=== PATIENT | female | born 1970 | race Caucasian/White ===

== ENCOUNTER 2017-12-27 14:39 | Emergency (ER) | payer OTHER, SELFPAY ==
[2017-12-27] MEDS ORDERED: ETOMIDATE 20 MG/10 ML VIAL IV ONE (14:40)
[2017-12-27] MEDS ORDERED: SUCCINYLCHOLINE 20 MG/ML (10 ML) IV ONE ×3 (14:40→14:59)
[2017-12-27] MEDS ORDERED: VECURONIUM 10 MG/VIAL IV ONE ×2 (14:40→19:53)
[2017-12-27] MEDS ORDERED: WATER FOR INJ,STERILE 10 ML IV ONE (14:40)
[2017-12-27] MEDS ORDERED: MIDAZOLAM HCL 2 MG/2 ML INJ ONE (14:46)
[2017-12-27] MEDS ORDERED: RSI MEDICATION KIT IV ONE (14:46)
[2017-12-27] MEDS ORDERED: FUROSEMIDE 40 MG/4 ML VIAL ONE (14:47)
[2017-12-27] MEDS ORDERED: METHYLPREDNISOLONE 125 MG INJ ONE (14:47)
[2017-12-27] MEDS ORDERED: CEFTRIAXONE/SWI 1gm 1 GM/10 ML SYR ONE (14:48)
[2017-12-27] MEDS ORDERED: PROPOFOL 1,000 MG/100 ML VIAL IV ONE ×2 (15:02→21:03)
[2017-12-27] MEDS ORDERED: NA CHLORIDE 0.9% 1,000 ML ONE ×3 (15:04→18:03)
[2017-12-27] MEDS ORDERED: FENTANYL CITR 100 MCG/2 ML ONE ×2 (15:16→18:29)
[2017-12-27] MEDS ORDERED: NOREPINEPHRINE 4mg/D5W 250mL 4 MG/250 ML BAG IV ONE (15:24)
[2017-12-27 15:31] LABS: Absolute Lymphocytes (CBC) 0.3 K/uL (0.7-4.9); Absolute Monocytes 0.6 K/uL (0.1-1.3); Basophils % 0.1 % (0-1.3); Eosinophils % 0.4 % (0-4.4); Hematocrit 41.2 % (36.0-45.0); Lymphocytes % 4.3 % (15.3-44.8); MCH 30.5 pg (27.0-35.0); MCV 93.2 fL (80-100); MPV 8.5 fL (7.6-11.3); Monocytes % 7.5 % (3.3-12.3); RBC Red Blood Cell Count 4.42 M/uL (3.86-4.86)
[2017-12-27] MEDS ORDERED: ACETAMINOPHEN 650MG/RECT SUPP PR ONE (15:43)
[2017-12-27] MEDS ORDERED: ACETAMINOPHEN 325 MG/SUPP PR ONE (15:43)
[2017-12-27] MEDS ORDERED: NA CHLORIDE 0.9% 3,000 ML ONE (15:48)
[2017-12-27] MEDS ORDERED: Phenylephrine HCl 10 MG/ML 1 ML VIAL ONE ×4 (15:48→20:29)
[2017-12-27] MEDS ORDERED: D5W 250 ML IV ONE ×2 (15:49→20:29)
[2017-12-27] MEDS ORDERED: VANCOMYCIN 1.5 GM in NA CHLORIDE 0.9% 500 ML IVPB ONE (16:00)
[2017-12-27 16:04] LABS: Albumin 2.1 g/dL (3.4-5.0); Bilirubin Direct 0.1 mg/dL (0-0.2); Bilirubin Total 0.4 mg/dL (0.2-1.0); Magnesium 2.2 mg/dL (1.8-2.4); Potassium 3.6 mmol/L (3.5-5.1)
[2017-12-27] MEDS ORDERED: DOPAMINE/D5W 400 MG/250 ML BAG IV ONE (16:05)
[2017-12-27] MEDS ORDERED: NOREPINEPHRINE 4 MG in D5W 250 ML IV PRN (16:28)
--- NOTE | 2017-12-27 16:42 | ER ---
Nurse's Notes [facility] Name: Jaycee Veliz Age: 47 yrs Sex: Female : 1970 Arrival Date: 12/27/2017 Time: 14:40 Bed 2 Private MD: Chnio Blanco E Diagnosis: Sepsis, Pneumonia, Acute Renal Failure, Left Pleural Effusion, Hypoxia, Presentation: 12/27 14:30 Presenting complaint: Patient states: difficulty breathing X 4 days, pt appears iw cyanotic, severe respiratory distress noted. Transition of care: patient was not received from another setting of care. Onset of symptoms was December 23, 2017. Risk Assessment: Do you want to hurt yourself or someone else? Patient reports no desire to harm self or others. Initial Sepsis Screen: Does the patient meet any 2 criteria? RR > 20 per min. Altered Mental Status. HR > 90 bpm. Does the patient have a suspected source of infection? Yes: Productive cough/pneumonia Acute abdominal pain. Care prior to arrival: None. 14:30 Method Of Arrival: Wheelchair iw 14:30 Acuity: DANA 1 aa5 Triage Assessment: 14:30 General: Appears distressed, obese, Behavior is anxious. hj 14:30 Pain: Complains of pain in chest. EENT: No signs and/or symptoms were reported hj regarding the EENT system. Neuro: Level of Consciousness is obeys commands, confused, lethargic, Oriented to person, place, situation. Cardiovascular: Capillary refill < 3 seconds. Respiratory: Reports shortness of breath labored breathing Onset: The symptoms/episode began/occurred x4 days;, the patient has severe shortness of breath. GI: No signs and/or symptoms were reported involving the gastrointestinal system. : No signs and/or symptoms were reported regarding the genitourinary system. Derm: No signs and/or symptoms reported regarding the dermatologic system. Musculoskeletal: No signs and/or symptoms reported regarding the musculoskeletal system. CODE NUMBER STAMPER: 14:30 unknwon hj Historical: - Allergies: 15:33 Hydrocodone-Acetaminophen; hj - Home Meds: 15:33 divalproex 500 mg Oral Tb24 [Active]; fluoxetine 20 mg Oral cap [Active]; levothyroxine hj 50 mcg tab [Active]; naproxen 800 mg Oral TbEC [Active]; Xanax 1 mg Oral tab [Active]; - PMHx: 15:33 Back pain; Bipolar disorder; herniated disk; Hypothyroidism; restless leg syndrome; hj - PSHx: 15:33 ; hj - Immunization history:: Adult Immunizations unknown. - Social history:: Smoking status: unknown. - Ebola Screening: : Patient negative for fever greater than or equal to 101.5 degrees Fahrenheit, and additional compatible Ebola Virus Disease symptoms Patient denies exposure to infectious person Patient denies travel to an Ebola-affected area in the 21 days before illness onset. Screenin:37 Abuse screen: Denies threats or abuse. Denies injuries from another. Nutritional iw screening: No deficits noted. Tuberculosis screening: No symptoms or risk factors identified. Fall Risk IV access (20 points). Assessment: 14:30 Respiratory: Airway is compromised Respiratory effort is labored, gasping, with nasal hj flaring, with retractions, weak, Respiratory pattern is tachypnea Breath sounds are diminished bilaterally. 14:30 Pain: Complains of pain in chest. Cardiovascular: Rhythm is sinus tachycardia. hj 14:30 Reassessment: IVF inserted on R AC by Phoenix DELGADO. hj 14:49 Reassessment: IV inserted on L AC by DANNY Garibay. hj 14:50 Reassessment: pt continues to be restless and unable to breathe O2- 65%;; MD decided to hj intubate pt;. Reassessment: etomidate 20 mg administered; intubation process started;. 14:50 Reassessment: succ 100 mg administered R AC; intubation process continued;. hj Reassessment: succ 100 mg administered; intubation performed by MD Guillermo 7.5 ET tube, at 25 at the T; BP- 128/85; 95%. Reassessment: veclo R AC administered;. 15:32 Reassessment: BP- 50/23; HR- 122- aware with orders; levophed started at 8 mcg/ min;.hj 15:55 Reassessment: too synephrine started- 180 per MD order;. hj 15:55 Reassessment: vanc 1.5 mg started per order;. hj 16:05 Reassessment: BP- 55/21; HR- 122; aware with orders; dopamine started at 10;. hj 17:31 Reassessment: BP- 103/72; HR- 116; MD aware; hospitalist and school program director in room with family member;. 18:30 Reassessment: BP-97/78; 115; wheeled to [place];. hj 19:00 Reassessment: back to room 2; for possible transfer;. hj 19:00 Reassessment: report received from Phoenix DELGADO with Pt on Octreotide 50mcg/hr, Protonix ak1 8mg/hr, Bi-carb drip 50/hr, Levophed 20mcg/min, Too-Synephrine 180mcg/min, dopamine 12mcg/min, NS 75mL/hr. 19:17 General: Appears pt follows commands but is calm and drowsy . Pain: Unable to use pain ak1 scale. Patient is intubated. Neuro: pt intubated. Cardiovascular: Rhythm is sinus tachycardia. Respiratory: Airway is patent pt intubated Breath sounds are diminished bilaterally. GI: NGT in place, to suction. Site with drainage. : Knight in place to gravity drainage no urine output. EENT: NG tube in place. 19:22 Reassessment: BP- 89/65;HR- 120;. hj 20:48 Reassessment: Dr. Li verbal order to d/c dopamine and start vasopressin. . ak1 21:01 Reassessment: life flight requested propofol for sedation, 100mL sealed bottle given to ak1 life flight. pt left with vasopressin, too-synephiren, levophed with life flight. Life flight d/c'd octreotide, protonix, bicarb and NS drips prior to leaving ER2. . Vital Signs: 14:30 Pulse Ox 100% Non-rebreather mask; aa5 14:30 Pulse 130; Resp 30 S; Pulse Ox 84% on R/A; aa5 15:35 BP 83 / 51; Pulse 123; Resp 15 A; Pulse Ox 95% on ETT vent; iw 15:42 BP 68 / 49; Pulse 123; Resp 16; Temp 101.4(R); Pulse Ox 95% on ETT vent; hj 15:45 BP 67 / 37; Pulse 122; Resp 16; Pulse Ox 94% on ETT vent; hj 15:47 BP 76 / 55; Pulse 123; Resp 18; Temp 102.4(TE); Pulse Ox 93% on ETT vent; hj 15:48 BP 50 / 23; Pulse 120; Resp 16; Temp 101.7; Pulse Ox 94% on ETT vent; hj 15:56 BP 61 / 40; Pulse 120; Resp 16; Pulse Ox 94% on ETT vent; hj 16:00 BP 55 / 21; Pulse 120; Resp 16; Pulse Ox 93% on ETT vent; hj 16:03 BP 73 / 60; Pulse 120; Resp 16; Pulse Ox 93% on ETT vent; hj 16:05 BP 91 / 29; Pulse 120; Resp 18; Temp 101.4(R); Pulse Ox 93% on ETT vent; hj 16:10 BP 91 / 29; Pulse 120; Resp 18; Temp 101.1(R); Pulse Ox 93% on R/A; hj 16:15 BP 65 / 45; Pulse 120; Resp 16; Pulse Ox 94% on ETT vent; hj 16:20 BP 87 / 69; Pulse 120; Resp 16; Pulse Ox 94% on ETT vent; hj 16:25 BP 88 / 67; Pulse 120; Resp 16; Temp 101.0(R); Pulse Ox 94% on ETT vent; hj 16:30 BP 87 / 34; Pulse 122; Resp 18; Temp 99.8(R); Pulse Ox 95% on ETT vent; hj 16:45 BP 91 / 29; Pulse 120; Resp 16; Temp 98.0(R); Pulse Ox 97% on ETT vent; hj 16:48 Weight 120 kg (R); iw 17:00 BP 92 / 67; Pulse 119; Resp 18; Pulse Ox 98% on ETT vent; hj 17:15 BP 96 / 40; Pulse 118; Resp 18; Pulse Ox 97% on ETT vent; hj 17:20 BP 103 / 74; Pulse 116; Resp 18; Pulse Ox 99% on ETT vent; hj 17:30 BP 100 / 68; Pulse 116; Resp 18; Pulse Ox 99% on ETT vent; hj 18:00 BP 99 / 78; Pulse 115; Resp 18; Pulse Ox 100% on ETT vent; hj 18:45 BP 100 / 75; Pulse 114; Resp 18; Pulse Ox 98% on ETT vent; hj 19:14 BP 100 / 45; Pulse 118; Resp 16; Temp 98(C); Pulse Ox 92% on 100% FiO2 ETT vent; ak1 19:17 BP 112 / 47; Pulse 118; Resp 16; Temp 97.9(C); Pulse Ox 91% on 100% FiO2 ETT vent; ak1 20:50 BP 129 / 72; Pulse 119; Resp 18; Temp 98.1(C); Pulse Ox 94% on 100% FiO2 ETT vent; ak1 19:14 vent settings AC 16, TV600, FiO2 100% PEEP 3 ak1 20:[address] vent settings change by Dr. Mcknight - AC 16, TV 600, FiO2 100% PEEP 5 ak1 ED Course: 14:30 Patient arrived in ED. aa5 14:30 Arm band placed on right wrist. hj 14:30 Patient has correct armband on for positive identification. Placed in gown. Bed in low hj position. Call light in reach. Side rails up X2. Adult w/ patient. 14:40 Chino Blanco MD is Private Physician. sb2 14:45 Inserted saline lock: 20 gauge in right antecubital area, using aseptic technique. IV iw inserted by DANNY Garibay. 14:49 Inserted saline lock: 22 gauge in left antecubital area, using aseptic technique. Blood iw collected. IV inserted by DANNY Garibay. 15:00 Assisted provider with intubation using 7.5 mm ETT via oral route. ET tube secured at iw 25cm at the teeth. Set up intubation tray. Intubated by Bahman Li MD Placement verified by CO2 detector w/ + color change, auscultating bilateral breath sounds, Patient tolerated well. 15:10 Nirali Padilla, DANNY is Primary Nurse. iw 15:11 Triage completed. iw 15:12 Bahman Li MD is Attending Physician. rn 15:20 Assisted provider with central line placement. Set up central line tray. Triple lumen iw line placed in right femoral. Line placed by Bahman Li MD Placement verified by CXR, blood return, Dressed with 4X4s, Tape, Tegaderm, Blood was collected. Patient tolerated well. 15:30 Initial lab(s) drawn, by ED staff, sent to lab. First set of blood cultures drawn Right jp3 Femoral artery Second set of blood cultures drawn right femoral artery. 15:46 EKG done, by fire sprinkler service technician. reviewed by Bahman Li MD. at1 15:46 Knight cath inserted, using sterile technique, 16 Fr., by molecular pathologist, balloon inflated, to hj gravity drainage, other no urine putput; NGT: inserted 14 Fr. via left nare. 15:48 XRAY Chest (1 view) In Process Unspecified. EDMS 16:33 Radiology exam delayed due to pt unstable at this time per nurse- Mari Paiz. kw1 16:33 Alejandrina Martin MD is Hospitalizing Provider. kdr 17:28 EKG done, by fire sprinkler service technician. reviewed by Bahman Li MD Repeat EKG. at1 17:52 Radiology exam delayed due to per Dr. Martin hold scan until further notice. kw1 19:00 Report given to DANNY Montague. hj 19:13 initiated transfer with [facility], spoke with Melody at the transfer center. eb 19:[address] Lee from [facility] with Dr Li for patient consultation for pt eb transfer. 19:56 connected the Ecmo doctor from [facility] with Dr. Li for patient consulation. eb 20:03 administrative approval given by Melody Hodges , Pt to go to [facility] eb report to be called to [phone]. Aileen Willams has accepted the patient in transfer. 20:09 [employer] flight called spoke to Carrie at dispatch who has called the flight crew eb their ETA is 20 minutes. 20:51 Patient transferred, IV remains in place. ak1 Administered Medications: Discontinued: Dopamine drip 5 mcg/kg/min - (DOPamine 400 mg, D5W 250 ml) IV at calculated rate continuous; Titrate to keep systolic blood pressure greater than 90mmHg 14:12 Drug: Succinylcholine 100 mg Route: IVP; Site: right antecubital; iw 16:42 Follow up: Response: No adverse reaction hj 14:40 Drug: Albuterol - atroVENT (3:1) (2.5 mg - 0.5 mg) 3 ml Route: Nebulizer; iw 15:33 Follow up: Response: No adverse reaction hj 14:50 Drug: SOLU-Medrol 125 mg Route: IVP; Site: right antecubital; iw 15:33 Follow up: Response: No adverse reaction hj 14:50 Drug: Etomidate 20 mg Route: IVP; Site: right antecubital; iw 16:43 Follow up: Response: No adverse reaction hj 14:52 Drug: Succinylcholine 100 mg Route: IVP; Site: right antecubital; iw 16:43 Follow up: Response: No adverse reaction hj 15:19 CANCELLED (Duplicate Order): AtroVENT Aerosol 0.5 mg Inhalation once iw 15:32 Drug: Levophed (4 mg/250 mL D5W 4 mcg/min Route: IV; Rate: calculated rate; Site: right hj femoral; 16:43 Follow up: IV Status: Infusion continued hj 20:55 Follow up: IV Status: Infusion continued upon transfer ak1 15:33 Drug: Rocephin 1 grams Route: IV; Rate: calculated rate; Site: right femoral; hj 16:43 Follow up: IV Status: Infusion continued hj 15:45 Drug: vancoMYCIN 1.5 grams Route: IVPB; Rate: calculated rate; Site: right antecubital; hj 16:42 Follow up: IV Status: Infusion continued hj 15:45 Drug: fentaNYL (PF) 50 mcg Route: IVP; Site: right antecubital; hj 19:30 Follow up: Response: No adverse reaction hj 15:50 Drug: NS 0.9% (30 ml/kg) 30 ml/kg Route: IV; Rate: bolus; Site: right femoral; iw 16:55 Follow up: IV Status: Completed infusion hj 15:55 Drug: Too-Synephrine 100 mcg/min Route: IV; Rate: calculated rate; Site: right femoral; hj 16:42 Follow up: IV Status: Infusion continued hj 20:54 Follow up: IV Status: Infusion continued upon transfer ak1 15:55 Drug: Tylenol Suppository 1000 mg Route: WA; hj 16:40 Follow up: Response: No adverse reaction; Temperature is decreased hj 16:05 Drug: Dopamine drip 5 mcg/kg/min - (DOPamine 400 mg, D5W 250 ml) Route: IV; Rate: hj calculated rate; Site: right femoral; 16:42 Follow up: IV Status: Infusion continued hj 16:53 Drug: ProTONIX 8 mg/hr Route: IV; Rate: 25 ml/hr; Site: left antecubital; hj 17:13 Follow up: IV Status: Infusion continued hj 20:52 Follow up: IV Status: Infusion continued upon transfer ak1 16:55 Drug: ProTONIX 40 mg Route: IVP; Site: right antecubital; hj 17:13 Follow up: Response: No adverse reaction hj 16:55 Drug: ProTONIX 40 mg Route: IVP; Site: right antecubital; hj 17:15 Follow up: Response: No adverse reaction hj 16:55 Drug: Sodium Bicarbonate 2 amp Route: IVP; Site: right femoral; hj 17:14 Follow up: Response: No adverse reaction hj 17:02 CANCELLED (Duplicate Order): SandoSTATIN 50 mcg IV at calculated rate once iw 17:03 Drug: SandoSTATIN 100 mcg Route: IV; Rate: bolus; Site: left antecubital; hj 17:27 Follow up: IV Status: Infusion continued hj 17:03 Drug: Octreotide Infusion (50 mcg/hr) - (Octreotide 500 mcg, NS 0.9% 500 ml) Route: IV; hj Rate: 50 ml/hr; Site: right femoral; 17:23 Follow up: IV Status: Infusion continued hj 20:51 Follow up: IV Status: Infusion continued upon transfer ak1 18:11 Drug: Zosyn 3.375 grams Route: IVPB; Infused Over: 60 mins; Site: right antecubital; hj 18:11 Follow up: IV Status: Infusion continued hj 18:30 Drug: Ativan 2 mg Route: IVP; Site: right antecubital; hj 19:30 Follow up: Response: No adverse reaction hj 18:30 Drug: fentaNYL (PF) 50 mcg Route: IVP; Site: right antecubital; hj 19:31 Follow up: Response: No adverse reaction hj 19:59 Drug: VecuroNIUM 10 mg {Note: right femoral central line.} Route: IVP; Site: Other; bb 20:35 Follow up: Response: No adverse reaction ak1 20:00 Drug: Albumin 25 grams Volume: 100 ml; Route: IVPB; Site: left antecubital; ak1 20:53 Follow up: IV Status: Completed infusion ak1 20:25 Drug: Vasopressin 0.02 units/min Route: IV; Rate: 0.03 calculated rate; Site: right ak1 femoral; 20:35 Follow up: IV Status: Infusion continued upon transfer ak1 Outcome: 16:41 Decision to Hospitalize by Provider. kdr 19:19 critical ak1 20:01 ER care complete, transfer ordered by MD. kdr 20:48 Transferred by helicopter to [facility], [facility], Transfer form completed. ak1 X-rays sent w/ patient. Note: report called to Seth DELGADO for bed 34 [facility] unit. 20:48 Instructed on the need for transfer. 21:48 Patient left the ED. ak1 Signatures: Dispatcher [employer] EDMS Bahman Li MD MD kdr Ballard, Brenda RN DANNY bb Nirali Padilla RN RN iw Gurinder Carreon MD MD rn Calderon, Audri RN RN aa5 Mari mcfarlane, bunk house worker EKG Tat1 Clari Elder RN RN ak1 Phoenix Rueda RN RN Emily Parra kw1 Alina Younger sb2 Elva Mcgraw Jacob jp3 Corrections: (The following items were deleted from the chart) 15:12 14:40 Patient arrived in ED. sb2 aa5 15:18 14:15 Presenting complaint: Patient states: difficulty breathing X 4 days, pt appears iw cyanotic, severe respiratory distress noted iw 15:18 14:18 Method Of Arrival: Wheelchair [facility] 15:18 14:18 Transition of care: patient was not received from another setting of care. [facility] 15:18 14:18 Onset of symptoms was December 23, 2017 [facility] 15:18 14:18 Risk Assessment: Do you want to hurt yourself or someone else? Patient reports no iw desire to harm self or others. iw 15:18 14:18 Initial Sepsis Screen: Does the patient meet any 2 criteria? RR > 20 per min. iw Altered Mental Status. HR > 90 bpm. Does the patient have a suspected source of infection? No. Patient's initial sepsis screen is negative. iw 15:18 14:18 Care prior to arrival: None. iw iw 15:20 14:25 SOLU-Medrol 125 mg IVP in right antecubital iw iw 15:39 14:30 Initial Sepsis Screen: Does the patient meet any 2 criteria? RR > 20 per min. iw Altered Mental Status. HR > 90 bpm. Does the patient have a suspected source of infection? No. Patient's initial sepsis screen is negative. iw 15:39 15:20 Assisted provider with intubation using 7.5 mm ETT via oral route. ET tube iw secured at 25cm at the teeth. Set up intubation tray. Intubated by Bahman Li MD Placement verified by CO2 detector w/ + color change, auscultating bilateral breath sounds, Patient tolerated well. iw 15:40 14:15 Patient arrived in ED. aa5 aa5 : 14:18 Acuity: DANA 1 iw aa5 :40 14:15 Pulse Ox 84% RA; aa5 aa5 :40 14:15 Pulse Ox 02 100% Non-rebreather mask; aa5 aa5 15:40 14:30 Pulse Ox 84% RA; aa5 aa5
--- NOTE | 2017-12-27 16:42 | EDPHYS ---
Physician Documentation [facility] Name: Jaycee Veliz Age: 47 yrs Sex: Female : 1970 Arrival Date: 12/27/2017 Time: 14:40 Bed 2 Private MD: Chino Blanco E ED Physician Bahman Li HPI: 12/27 18:14 This 47 yrs old Female presents to ER via Wheelchair with complaints of kdr Shortness Of Breath, Chest Pain. 18:14 The patient has shortness of breath at rest, with light activity. Onset: The kdr symptoms/episode began/occurred gradually, 4 day(s) ago. Duration: The symptoms are continuous, and are steadily getting worse. The patient's shortness of breath is aggravated by exertion, light activity. Associated signs and symptoms: Pertinent positives: productive cough, diaphoresis. Severity of symptoms: At their worst the symptoms were severe incapacitating in the emergency department the symptoms are worse. It is unknown whether or not the patient has had similar symptoms in the past. It is unknown whether or not the patient has recently seen a physician. 18:14 The patient's cousin reports that she had been feeling poorly for the last 3-4 days and kdr that when they had checked on her yesterday, she was in bed and feeling week. AFTERSCHOOL: 14:30 [place] hj Historical: - Allergies: 15:33 Hydrocodone-Acetaminophen; hj - Home Meds: 15:33 divalproex 500 mg Oral Tb24 [Active]; fluoxetine 20 mg Oral cap [Active]; levothyroxine hj 50 mcg tab [Active]; naproxen 800 mg Oral TbEC [Active]; Xanax 1 mg Oral tab [Active]; - PMHx: 15:33 Back pain; Bipolar disorder; herniated disk; Hypothyroidism; restless leg syndrome; hj - PSHx: 15:33 ; hj - Immunization history:: Adult Immunizations unknown. - Social history:: Smoking status: unknown. - Ebola Screening: : Patient negative for fever greater than or equal to 101.5 degrees Fahrenheit, and additional compatible Ebola Virus Disease symptoms Patient denies exposure to infectious person Patient denies travel to an Ebola-affected area in the 21 days before illness onset. ROS: 18:29 Constitutional: Unable to obtain as the patient was in severe respiratory distress and kdr was intubated not long after arrival 18:29 Unable to obtain ROS due to altered mental status, patient distress. Exam: 18:29 Constitutional: This is a well developed, well obese nourished patient who is awake kdr but in moderate to severe distress. Head/Face: Normocephalic, atraumatic. Eyes: Pupils equal round and reactive to light, extra-ocular motions intact. Lids and lashes normal. Conjunctiva and sclera are non-icteric and not injected. Cornea within normal limits. Periorbital areas with no swelling, redness, or edema. Chest/axilla: Normal chest wall appearance and motion. Nontender with no deformity. No lesions are appreciated. Cardiovascular: Regular rate and rhythm with a normal S1 and S2. No gallops, murmurs, or rubs. Normal PMI, no JVD. No pulse deficits. 18:29 Respiratory: severe repiratory distress is noted, Respirations: labored breathing, that is severe, prolonged exhalation, shallow respirations, that is moderate, tachypnea, that is moderate, Breath sounds: rales, that are mild, are located in both bases, rhonchi, that are moderate, are located in both bases, are heard diffusely, + upper airway congestion. Vital Signs: 14:30 Pulse Ox 100% Non-rebreather mask; aa5 14:30 Pulse 130; Resp 30 S; Pulse Ox 84% on R/A; aa5 15:35 BP 83 / 51; Pulse 123; Resp 15 A; Pulse Ox 95% on ETT vent; iw 15:42 BP 68 / 49; Pulse 123; Resp 16; Temp 101.4(R); Pulse Ox 95% on ETT vent; hj 15:45 BP 67 / 37; Pulse 122; Resp 16; Pulse Ox 94% on ETT vent; hj 15:47 BP 76 / 55; Pulse 123; Resp 18; Temp 102.4(TE); Pulse Ox 93% on ETT vent; hj 15:48 BP 50 / 23; Pulse 120; Resp 16; Temp 101.7; Pulse Ox 94% on ETT vent; hj 15:56 BP 61 / 40; Pulse 120; Resp 16; Pulse Ox 94% on ETT vent; hj 16:00 BP 55 / 21; Pulse 120; Resp 16; Pulse Ox 93% on ETT vent; hj 16:03 BP 73 / 60; Pulse 120; Resp 16; Pulse Ox 93% on ETT vent; hj 16:05 BP 91 / 29; Pulse 120; Resp 18; Temp 101.4(R); Pulse Ox 93% on ETT vent; hj 16:10 BP 91 / 29; Pulse 120; Resp 18; Temp 101.1(R); Pulse Ox 93% on R/A; hj 16:15 BP 65 / 45; Pulse 120; Resp 16; Pulse Ox 94% on ETT vent; hj 16:20 BP 87 / 69; Pulse 120; Resp 16; Pulse Ox 94% on ETT vent; hj 16:25 BP 88 / 67; Pulse 120; Resp 16; Temp 101.0(R); Pulse Ox 94% on ETT vent; hj 16:30 BP 87 / 34; Pulse 122; Resp 18; Temp 99.8(R); Pulse Ox 95% on ETT vent; hj 16:45 BP 91 / 29; Pulse 120; Resp 16; Temp 98.0(R); Pulse Ox 97% on ETT vent; hj 16:48 Weight 120 kg (R); iw 17:00 BP 92 / 67; Pulse 119; Resp 18; Pulse Ox 98% on ETT vent; hj 17:15 BP 96 / 40; Pulse 118; Resp 18; Pulse Ox 97% on ETT vent; hj 17:20 BP 103 / 74; Pulse 116; Resp 18; Pulse Ox 99% on ETT vent; hj 17:30 BP 100 / 68; Pulse 116; Resp 18; Pulse Ox 99% on ETT vent; hj 18:00 BP 99 / 78; Pulse 115; Resp 18; Pulse Ox 100% on ETT vent; hj 18:45 BP 100 / 75; Pulse 114; Resp 18; Pulse Ox 98% on ETT vent; hj 19:14 BP 100 / 45; Pulse 118; Resp 16; Temp 98(C); Pulse Ox 92% on 100% FiO2 ETT vent; ak1 19:17 BP 112 / 47; Pulse 118; Resp 16; Temp 97.9(C); Pulse Ox 91% on 100% FiO2 ETT vent; ak1 20:50 BP 129 / 72; Pulse 119; Resp 18; Temp 98.1(C); Pulse Ox 94% on 100% FiO2 ETT vent; ak1 19:14 vent settings AC 16, TV600, FiO2 100% PEEP 3 ak1 20:[address] Mcknight - AC 16, TV 600, FiO2 100% PEEP 5 ak1 Procedures: 18:29 Intubation: Ventilated with 100% NRB prior to procedure. O2 saturation prior to kdr procedure was 93 %. Intubated orally using # 3 Giana blade with 7.5 mm ETT. Successful on third attempt. Ventilated with Ambu bag. Tube secured with ETT lee Placement verified by CXR, CO2 detector with (+) color change, auscultating bilateral breath sounds, O2 saturation after procedure was 92 %. Patient tolerated well, The patient vomited during the attempt and required vigorous suctioning. Central Line: the site was prepped with Betadine, a triple lumen catheter was inserted, in the right femoral vein, in 1 attempts. placement was verified, by blood return, the site was dressed with 4X4s, Tegaderm, using sterile technique, the patient tolerated the procedure, well. MDM: 16:41 Patient medically screened. kdr 18:29 Data reviewed: vital signs, nurses notes, lab test result(s), radiologic studies. kdr Counseling: I had a detailed discussion with the patient and/or guardian regarding: the historical points, exam findings, and any diagnostic results supporting the discharge/admit diagnosis, lab results, radiology results, the need for further work-up and treatment in the hospital. Physician consultation: Alejandrina Martin MD regarding admission, and will see patient in ED, immediately. Admission orders: after a detailed discussion of the patient's condition and case, the admit orders are written by me. ED course: The patient was critically ill with mild improvement in the ED. 12/27 15:09 Order name: Basic Metabolic Panel; Complete Time: 16:12 12/27 15:09 Order name: CBC with Diff; Complete Time: 17:59 iw 12/27 15:09 Order name: Ckmb; Complete Time: 16:12 iw 12/27 15:09 Order name: CPK; Complete Time: 16:12 12/27 15:09 Order name: LFT's; Complete Time: 16:12 12/27 15:09 Order name: Magnesium; Complete Time: 16:12 12/27 15:09 Order name: Troponin (emerg Dept Use Only); Complete Time: 16:12 12/27 15:09 Order name: Blood Culture Adult (2) 12/27 15:47 Order name: Manual Differential; Complete Time: 17:59 EDTX 12/27 16:12 Order name: TSH; Complete Time: 17:59 [facility] 12/27 16:17 Order name: ABG; Complete Time: 17:59 [facility] 12/27 16:18 Order name: Procalcitonin; Complete Time: 17:59 [facility] 12/27 16:18 Order name: Lactate; Complete Time: 17:59 kdr 12/27 16:18 Order name: CRP; Complete Time: 17:59 [facility] 12/27 16:18 Order name: ESR; Complete Time: 19:29 [facility] 12/27 16:53 Order name: ABG Arterial Blood Gas; Complete Time: 17:59 [facility] 12/27 17:10 Order name: CBC with Automated Diff [facility] 12/27 17:10 Order name: CKMB Creatine Kinase MB [facility] 12/27 17:10 Order name: Comprehensive Metabolic Panel [facility] 12/27 15:09 Order name: XRAY Chest (1 view); Complete Time: 19:29 12/27 16:30 Order name: Chest Abd Pelvis Wo Con; Complete Time: 19:29 [facility] 12/27 17:10 Order name: Creatine Phosphokinase [facility] 12/27 17:10 Order name: Magnesium [facility] 12/27 17:10 Order name: Phosphorus [facility] 12/27 17:10 Order name: Chest Pa And Lat (2 Views) [facility] 12/27 17:13 Order name: ABG Arterial Blood Gas; Complete Time: 17:59 [facility] 12/27 17:13 Order name: Comprehensive Metabolic Panel [facility] 12/27 17:13 Order name: Lactic Dehydrogenase [facility] 12/27 19:21 Order name: US; Complete Time: 19:29 [facility] 12/27 15:09 Order name: EKG; Complete Time: 15:10 12/27 15:09 Order name: Cardiac monitoring; Complete Time: 15:33 12/27 15:09 Order name: EKG - Nurse/Tech; Complete Time: 15:33 12/27 15:09 Order name: IV Saline Lock; Complete Time: 15:33 12/27 15:09 Order name: Labs collected and sent; Complete Time: 15:33 iw 12/27 15:09 Order name: O2 Per Protocol; Complete Time: 15:33 iw 12/27 15:09 Order name: O2 Sat Monitoring; Complete Time: 15:34 iw 12/27 15:09 Order name: Urine Dipstick-Ancillary (obtain specimen); Complete Time: 15:34 iw 12/27 17:10 Order name: CONS Physician Consult EDTX 12/27 17:10 Order name: NPO EDTX 12/27 17:12 Order name: CONS Pharmacy Consult EDMS Administered Medications: Discontinued: Dopamine drip 5 mcg/kg/min - (DOPamine 400 mg, D5W 250 ml) IV at calculated rate continuous; Titrate to keep systolic blood pressure greater than 90mmHg 14:12 Drug: Succinylcholine 100 mg Route: IVP; Site: right antecubital; iw 16:42 Follow up: Response: No adverse reaction hj 14:40 Drug: Albuterol - atroVENT (3:1) (2.5 mg - 0.5 mg) 3 ml Route: Nebulizer; iw 15:33 Follow up: Response: No adverse reaction hj 14:50 Drug: SOLU-Medrol 125 mg Route: IVP; Site: right antecubital; iw 15:33 Follow up: Response: No adverse reaction hj 14:50 Drug: Etomidate 20 mg Route: IVP; Site: right antecubital; iw 16:43 Follow up: Response: No adverse reaction hj 14:52 Drug: Succinylcholine 100 mg Route: IVP; Site: right antecubital; iw 16:43 Follow up: Response: No adverse reaction hj 15:19 CANCELLED (Duplicate Order): AtroVENT Aerosol 0.5 mg Inhalation once iw 15:32 Drug: Levophed (4 mg/250 mL D5W 4 mcg/min Route: IV; Rate: calculated rate; Site: right hj femoral; 16:43 Follow up: IV Status: Infusion continued hj 20:55 Follow up: IV Status: Infusion continued upon transfer ak1 15:33 Drug: Rocephin 1 grams Route: IV; Rate: calculated rate; Site: right femoral; hj 16:43 Follow up: IV Status: Infusion continued hj 15:45 Drug: vancoMYCIN 1.5 grams Route: IVPB; Rate: calculated rate; Site: right antecubital; hj 16:42 Follow up: IV Status: Infusion continued hj 15:45 Drug: fentaNYL (PF) 50 mcg Route: IVP; Site: right antecubital; hj 19:30 Follow up: Response: No adverse reaction hj 15:50 Drug: NS 0.9% (30 ml/kg) 30 ml/kg Route: IV; Rate: bolus; Site: right femoral; iw 16:55 Follow up: IV Status: Completed infusion hj 15:55 Drug: Saud-Synephrine 100 mcg/min Route: IV; Rate: calculated rate; Site: right femoral; hj 16:42 Follow up: IV Status: Infusion continued hj 20:54 Follow up: IV Status: Infusion continued upon transfer ak1 15:55 Drug: Tylenol Suppository 1000 mg Route: UT; hj 16:40 Follow up: Response: No adverse reaction; Temperature is decreased hj 16:05 Drug: Dopamine drip 5 mcg/kg/min - (DOPamine 400 mg, D5W 250 ml) Route: IV; Rate: hj calculated rate; Site: right femoral; 16:42 Follow up: IV Status: Infusion continued hj 16:53 Drug: ProTONIX 8 mg/hr Route: IV; Rate: 25 ml/hr; Site: left antecubital; hj 17:13 Follow up: IV Status: Infusion continued hj 20:52 Follow up: IV Status: Infusion continued upon transfer ak1 16:55 Drug: ProTONIX 40 mg Route: IVP; Site: right antecubital; hj 17:13 Follow up: Response: No adverse reaction hj 16:55 Drug: ProTONIX 40 mg Route: IVP; Site: right antecubital; hj 17:15 Follow up: Response: No adverse reaction hj 16:55 Drug: Sodium Bicarbonate 2 amp Route: IVP; Site: right femoral; hj 17:14 Follow up: Response: No adverse reaction hj 17:02 CANCELLED (Duplicate Order): SandoSTATIN 50 mcg IV at calculated rate once iw 17:03 Drug: SandoSTATIN 100 mcg Route: IV; Rate: bolus; Site: left antecubital; hj 17:27 Follow up: IV Status: Infusion continued hj 17:03 Drug: Octreotide Infusion (50 mcg/hr) - (Octreotide 500 mcg, NS 0.9% 500 ml) Route: IV; hj Rate: 50 ml/hr; Site: right femoral; 17:23 Follow up: IV Status: Infusion continued hj 20:51 Follow up: IV Status: Infusion continued upon transfer ak1 18:11 Drug: Zosyn 3.375 grams Route: IVPB; Infused Over: 60 mins; Site: right antecubital; hj 18:11 Follow up: IV Status: Infusion continued hj 18:30 Drug: Ativan 2 mg Route: IVP; Site: right antecubital; hj 19:30 Follow up: Response: No adverse reaction hj 18:30 Drug: fentaNYL (PF) 50 mcg Route: IVP; Site: right antecubital; hj 19:31 Follow up: Response: No adverse reaction hj 19:59 Drug: VecuroNIUM 10 mg {Note: right femoral central line.} Route: IVP; Site: Other; bb 20:35 Follow up: Response: No adverse reaction ak1 20:00 Drug: Albumin 25 grams Volume: 100 ml; Route: IVPB; Site: left antecubital; ak1 20:53 Follow up: IV Status: Completed infusion ak1 20:25 Drug: Vasopressin 0.02 units/min Route: IV; Rate: 0.03 calculated rate; Site: right ak1 femoral; 20:35 Follow up: IV Status: Infusion continued upon transfer ak1 Disposition: 18:29 Critical Care:. kdr Disposition: 12/27/17 20:01 Transfer ordered to [facility]. Diagnosis is Sepsis, Pneumonia, Acute Renal Failure, Left Pleural Effusion, Hypoxia, . - Reason for transfer: Higher level of care. - Accepting physician is Dr. Solano. - Condition is Critical. - Problem is new. - Symptoms have improved. Critical care time excluding procedures: 18:29 Critical care time: Bedside Care: 90 minutes, Consultation: 30 minutes, Family kdr Intervention: 15 minutes. Total time: 135 minutes Signatures: Dispatcher [employer] EDMS Bahman Li MD MD kdr Ballard, Brenda, RN RN bb Williams, Irene, RN RN Clari Elder RN RN ak1 [place] Rueda, Leigh Mares RN, RN RN df Corrections: (The following items were deleted from the chart) 15:19 15:19 AtroVENT Aerosol 0.5 mg Inhalation once ordered. [facility] 16:18 16:18 Arterial Blood Gas+RC.LAB.BRZ ordered. EDMS EDMS 16:30 15:42 Chest Abdomen Pelvis W Con+CT.RAD.BRZ ordered. [facility] EDTX 17:02 16:56 SandoSTATIN 50 mcg IV at calculated rate once ordered. kdr iw 17:12 17:10 Thyroid Stimulating Hormone ordered. [facility] EDMS 17:12 17:10 Thyroid Stimulating Hormone ordered. [facility] EDTX 18:15 16:41 Hospitalization Ordered by Alejandrina Martin MD for Inpatient Admission. Preliminary df diagnosis is Pneumonia, unspecified organism; Sepsis, unspecified organism; Hypotension. Bed requested for Intensive Care Unit. Status is Inpatient Admission. Condition is Critical. Problem is new. Symptoms have worsened. UTI on Admission? No. kdr 19:58 18:15 12/27/2017 16:41 Hospitalization Ordered by Alejandrina Martin MD for Inpatient kdr Admission. Preliminary diagnosis is Pneumonia, unspecified organism; Sepsis, unspecified organism; Hypotension. Bed requested for Intensive Care Unit. Status is Inpatient Admission. Condition is Critical. Problem is new. Symptoms have worsened. UTI on Admission? No. df 21:48 20:01 12/27/2017 20:01 Transfer ordered to [facility]. Diagnosis is ak1 Sepsis, Pneumonia, Acute Renal Failure, Left Pleural Effusion, Hypoxia, . Reason for transfer: Higher level of care. Accepting physician is Dr. Solano. Condition is Critical. Problem is new. Symptoms have improved. kdr
[2017-12-27 16:50] LABS: Arterial Blood Carboxyhemoglob 0.5 % (0-1.5); Blood O2 Saturation 90.3 % (92-98.5)
[2017-12-27 16:53] LABS: Arterial Blood Carboxyhemoglob 0.4 % (0-1.5); Blood Gas Oxyhemoglobin 91.6 % (94-97); Blood O2 Saturation 92.8 % (92-98.5)
[2017-12-27] MEDS ORDERED: PANTOPRAZOLE 40 MG INJ ONE (16:59)
[2017-12-27] MEDS ORDERED: PANTOPRAZOLE INJ 80 MG in NA CHLORIDE 0.9% 250 ML IV SCH (17:00)
[2017-12-27] MEDS ORDERED: PIPER/TAZO/NS 3.375gm 3.375 GM/100 ML BAG ONE (17:00)
[2017-12-27] MEDS ORDERED: ALBUMIN HUMAN 25% 50 ML IV ONE (17:07)
[2017-12-27] MEDS ORDERED: OCTREOTIDE ACETATE 100 MCG/ML ONE (17:07)
[2017-12-27] MEDS ORDERED: ONDANSETRON 4 MG/2 ML VIAL IV PRN (17:09)
[2017-12-27 17:41] LABS: Dohle Bodies PRESENT; Platelet Estimate ADEQ
[2017-12-27 17:53] LABS: Arterial Blood Carboxyhemoglob 0.4 % (0-1.5); Blood Gas Oxyhemoglobin 91.6 % (94-97); Blood O2 Saturation 92.8 % (92-98.5)
[2017-12-27] MEDS ORDERED: D5W 1,000 ML with NA BICARB 8.4% 50 MEQ IV SCH ×2 (18:00)
[2017-12-27] MEDS ORDERED: OCTREOTIDE 500 MCG in NA CHLORIDE 0.9% 500 ML IV SCH (18:00)
[2017-12-27] MEDS ORDERED: NA CHLORIDE 0.9% 1,000 ML IV SCH ×2 (18:00)
[2017-12-27] MEDS ORDERED: LORazepam 2 MG/ML VIAL ONE (18:28)
--- NOTE | 2017-12-27 19:13 | RAD REPORT ---
EXAM DESCRIPTION: CT - Chest Abd Pelvis Wo Con - 12/27/2017 7:03 pm CLINICAL HISTORY: Chest and abdominal pain COMPARISON: none TECHNIQUE: Computed axial tomography of the chest, abdomen and pelvis was obtained. Oral contrast wa s given. IV contrast was not requested. All CT scans are performed using dose optimization technique as appropriate and may include automated exposure control or mA/KV adjustment according to patient size. FINDINGS: The evaluation of mediastinum, muriel, vessels and solid organs is limited secondary to the lack of IV contrast administration An endotracheal tube has its tip a couple centimeters above the wally. A nasogastric tube is present within the proximal stomach. Left lower lobe atelectasis is present. Mild bibasilar lung opacities are seen. Moderate left and sma ll left pleural effusions are present. A minimal pericardial effusion is seen. The liver, spleen, pancreas, adrenals and kidneys appear grossly normal There is no evidence of diverticulitis. . The stomach is mildly distended. A Knight catheter is present within a collapsed bladder. A right femoral line is in place IMPRESSION: Left lower lobe atelectasis Mild bibasilar lung opacities probably represent pneumonia Moderate left and small right pleural effusions Mild gastric distention
[2017-12-27] MEDS ORDERED: LEVALBUTEROL 0.63 MG/3 ML NEB ONE (19:16)
[2017-12-27] MEDS ORDERED: IPRATROPIUM BROM 0.5MG/2.5ML ONE (19:16)
--- NOTE | 2017-12-27 19:19 | RAD REPORT ---
EXAM DESCRIPTION: Dionte Single View12/27/2017 4:02 pm CLINICAL HISTORY: sob COMPARISON: 2014 FINDINGS: An endotracheal tube has its tip a couple centimeters above the wally. The left hemithorax is hazy with volume loss. Mild right basilar lung opacities are seen. The heart is normal size IMPRESSION: Left hemithorax is hazy likely representing a combination of atelectasis and pleural eff usion Mild bibasilar lung opacities probably represent pneumonia
[2017-12-27 19:21] LABS: Albumin 1.4 g/dL (3.4-5.0); Bilirubin Total 0.2 mg/dL (0.2-1.0); Potassium 3.7 mmol/L (3.5-5.1); Protein, Total 4.1 g/dL (6.4-8.2)
--- NOTE | 2017-12-27 19:21 | RAD REPORT ---
EXAM DESCRIPTION: US - Abdomen Exam Complete - 12/27/2017 6:22 pm CLINICAL HISTORY: Abdominal pain COMPARISON: 2013 cat scan FINDINGS: The liver has a mildly increased echotexture. The liver is not well evaluated. A gallstone is not seen. The gallbladder wall is not thickened. The biliary tree is normal caliber. The pancreas was not well visualized secondary overlying bowel gas The right kidney measures 13 centimeters with a normal echotexture. The left kidney measures 12 centimeters with a normal echotexture. The spleen measures 12 centimeters. The abdominal aorta appears unremarkable. The IVC was not well visualized secondary to overlying julissa l gas No ascites is visualized IMPRESSION: Mildly increased hepatic echotexture consistent with mild fatty infiltration
[2017-12-27] MEDS ORDERED: WATER FOR INJ,STERILE 10 ML ONE (19:53)
[2017-12-27] MEDS ORDERED: VASOPRESSIN 80 UNIT in NA CHLORIDE 0.9% 250 ML IV PRN (19:59)
[2017-12-27] MEDS ORDERED: LEVALBUTEROL 0.63 MG/3 ML NEB NEB SCH ×2 (20:00)
[2017-12-27] MEDS ORDERED: IPRATROPIUM BROM 0.5MG/2.5ML NEB SCH (20:00)
[2017-12-27] MEDS ORDERED: VASOPRESSIN 20 UNIT/ML VIAL ONE (20:09)
[2017-12-27] MEDS ORDERED: NA CHLORIDE 0.9% 250 ML ONE (20:14)
[2017-12-27] MEDS ORDERED: PIPER/TAZO/NS 3.375gm 3.375 GM/100 ML BAG IVPB SCH (21:00)
[2017-12-27] MEDS ORDERED: HYDROCORTISONE SUC 100 MG INJ IV SCH (21:00)
[2017-12-27] MEDS ORDERED: ALBUMIN HUMAN 25% 200 ML IV SCH (23:00)
[2017-12-27 23:16] VITALS: BP 129/72; TEMP 98.1; O2SAT 94
[2017-12-28] MEDS ORDERED: VANCOMYCIN 1.5 GM in NA CHLORIDE 0.9% 500 ML IVPB SCH (04:00)
[2017-12-28] MEDS ORDERED: RSI MEDICATION KIT IV ONE (06:24)
--- NOTE | 2017-12-28 10:42 | EKG ---
Test Date: 2017-12-27 Test Time: 17:17:43 Shower Screen Installer: OSCAR MEASUREMENT RESULTS: Intervals: Rate: 119 ND: 122 QRSD: 92 QT: 436 QTc: 613 [place]: P: 60 ND: 122 QRS: 66 T: 49 INTERPRETIVE STATEMENTS: Sinus tachycardia Possible Left atrial enlargement ST & T wave abnormality, consider lateral ischemia Abnormal ECG Compared to ECG 12/27/2017 15:33:47 ST (T wave) deviation now present Possible ischemia now present Electronically Signed On 12-28-17 10:41:10 CDT by Eze France
--- NOTE | 2017-12-28 10:42 | EKG ---
Test Date: 2017-12-27 Test Time: 15:33:47 Director Of Plant Operations: JERED/Moreno MEASUREMENT RESULTS: Intervals: Rate: 123 CT: 136 QRSD: 92 QT: 350 QTc: 501 [place]: P: 62 CT: 136 QRS: 75 T: 35 INTERPRETIVE STATEMENTS: Sinus tachycardia Possible Left atrial enlargement Borderline ECG Compared to ECG 12/29/2014 10:45:46 Sinus rhythm no longer present Prolonged QT interval no longer present Electronically Signed On 12-28-17 10:41:29 CDT by Eze France
== END 2017-12-27 21:48 | disposition short-term general hospital (02) ==
LOC: ER 14:39 → ERHOLD 16:41 → UNDOADMIN 16:41 → ER 21:48
PROC: 0BH17EZ Insertion of Endotracheal Airway into Trachea, Via Natural or Artificial Opening (ICD-10-PCS; principal; 2017-12-27)
PROC: 5A1935Z Respiratory Ventilation, Less than 24 Consecutive Hours (ICD-10-PCS; 2017-12-27)
PROC: 06HM33Z Insertion of Infusion Device into Right Femoral Vein, Percutaneous Approach (ICD-10-PCS; 2017-12-27)
DX: A41.9 Sepsis, unspecified organism (principal); J18.9 Pneumonia, unspecified organism; J91.8 Pleural effusion in other conditions classified elsewhere; R09.02 Hypoxemia; N17.9 Acute kidney failure, unspecified; E03.9 Hypothyroidism, unspecified; F31.9 Bipolar disorder, unspecified; Z88.5 Allergy status to narcotic agent
CPT/HCPCS: 31500; 36415; 71045; 71250; 74176; 76700; 80048; 80053; 80076; 82550; 82553; 82805; 83605; 83615; 83735; 84145; 84443; 84484; 85025; 85652; 86140; 87040; 87205; 93005; 94002; 94640; 99291; 99292; C9113; J0330; J0696; J1265; J2250; J2354; J2370; J2543; J2930; J3010; J7030; J7060; P9047

== ENCOUNTER 2018-01-24 17:19 | Inpatient (IN) | payer SELFPAY ==
--- OUTSIDE RECORDS SUMMARY | 2018-01-24 19:43 | XMS REPORT | Clinical Summary ---
:1970 Author Organization [facility] Address [address] [place] [address] Phone Care Team Providers Name Role Phone Unavailable Primary Care Provider Unavailable Allergies Active Allergy Reactions Severity Noted Date Comments Hydrocodone-Acetaminophen 12/27/2017 Current Medications Prescription Sig. Disp. Refills Start Date End Date Status gabapentin Take 300 mg by Active (NEURONTIN) 300 MG mouth 2 (two) capsule times daily with breakfast and dinner. ALPRAZolam (XANAX) Take 2 mg by mouth Active 2 MG 2 (two) times tabletIndications: daily. anxiety divalproex Take 1,500 mg by Active (DEPAKOTE) 500 MG mouth nightly. 24 hr tablet famotidine (PEPCID) Take 40 mg by Active 40 MG mouth every night tabletIndications: as needed for Heartburn, Heartburn. Heartburn Prevention levothyroxine Take 50 mcg by Active (SYNTHROID, mouth Every LEVOTHROID) 50 MCG morning on an tabletIndications: empty stomach. hypothyroidism amiodarone Take 1 tablet (200 0 01/24/2018 Active (PACERONE) 200 MG mg total) by mouth 9 tablet 2 (two) times daily. aspirin 81 MG Take 1 tablet (81 0 01/25/2018 Active chewable tablet mg total) by mouth 9 daily. docusate sodium Take 1 capsule 10 capsule 0 01/24/2018 Active (COLACE) 100 MG (100 mg total) by 8 capsule mouth daily as needed for Constipation for up to 10 days. magnesium hydroxide Take 30 mLs by 0 01/24/2018 Active (MILK OF MAGNESIA) mouth daily as 400 mg/5 mL Susp needed. folic acid Take 1 tablet (1 0 01/25/2018 Active (FOLVITE) 1 MG mg total) by mouth 9 tablet daily. heparin infusion Inject 150-3,500 100 mL 0 01/24/2018 Active 25,000 units in Units/hr dextrose 5% (D5W) intravenously 250 mL (100 continuous. units/mL) ipratropium-albuter Take 3 mLs by 0 01/24/2018 Active ol (DUO-NEB) 0.5 nebulization every 9 mg-3 mg(2.5 mg 6 (six) hours for base)/3 mL 360 days. nebulizer solution metoprolol Take 1 tablet (25 0 01/24/2018 Active (LOPRESSOR) 25 MG mg total) by mouth 9 tablet 2 (two) times daily. nystatin Apply topically 2 15 g 0 01/24/2018 Active (MYCOSTATIN) (two) times daily. 9 100,000 unit/gram powder piperacillin-tazoba Inject 2.25 g 0 01/24/2018 Active ctam (ZOSYN) MBP intravenously 2.25 g in 100 mL NS every 6 (six) hours. povidone-iodine Apply topically 2 480 mL 0 01/24/2018 Active (BETADINE) 10 % (two) times daily 8 external solution for 7 days. QUEtiapine Take 1 tablet (50 0 01/24/2018 Active (SEROQUEL) 50 MG mg total) by mouth 8 tablet nightly for 30 days. senna-docusate Take 1 tablet by 0 01/24/2018 Active (SENOKOT S) 8.6-50 mouth nightly. 9 mg per tablet traMADol (ULTRAM) Take 1 tablet (50 30 tablet 0 01/24/2018 Active 50 mg tablet mg total) by mouth 8 every 12 (twelve) hours as needed for up to 10 days. Max Daily Amount: 100 mg zinc Apply 71 g 0 01/24/2018 Active oxide-petrolatum topically 2 (two) (CRITIC-AID) 20-51 times daily. % Pste topical paste QUEtiapine Take by mouth Suspended (SEROQUEL) 300 MG nightly. 8 tablet Active Problems Problem Noted Date Acute renal failure with tubular necrosis ([facility]) 01/03/2018 Acute metabolic encephalopathy 01/03/2018 Streptococcus pneumoniae 01/03/2018 Empyema of left pleural space ([facility]) 01/03/2018 Metabolic acidosis 12/28/2017 Acute hypoxemic respiratory failure ([facility]) 12/28/2017 Leukocytosis 12/28/2017 SUSAN (acute kidney injury) ([facility]) 12/28/2017 ARDS (adult respiratory distress syndrome) ([facility]) 12/28/2017 Septic shock ([facility]) 12/27/2017 Acute respiratory failure with hypoxia ([facility]) Acute respiratory insufficiency Postoperative anemia due to acute blood loss Hyperglycemia Encounters Date Type Specialty Care Team Description 01/13/2018 Ancillary Orders Lab Nicanor Villalpando 01/13/2018 Procedure Pass 01/13/2018 Surgery Jaycee Anand THORACOSCOPY (VATS) MD Evangelina 01/12/2018 Anesthesia Event Edgar Jacob MD 01/04/2018 Orders Only General Internal Medicine 12/30/2017 Procedure Pass 12/30/2017 Surgery Bulmaro Mccormack MD INSERTION OF CANNULA FOR ECMO MCR - IP PROC ONLY 12/28/2017 Anesthesia Event Caden Leonard MD 12/28/2017 Procedure Pass 12/28/2017 Surgery Bulmaro Mccormack MD INSERTION OF CANNULA FOR ECMO MCR - IP PROC ONLY 12/27/2017 - Hospital Encounter Cardiology Georgie Gallagher MD Bandemia;Metabolic 01/24/2018 Saatee, Siavosh, acidosis;Acute MD respiratory failure Patric Caballero with hypoxia Kristal Luis MD ([facility]);Septic shock Gray, ([facility]);SUSAN (acute Christopher kidney injury) MD Vlad ([facility]);Multi-organ Nicanor Villalpando failure with heart Imani Garcia MD failure ([facility]);ARDS (adult respiratory distress syndrome) ([facility]);Shock circulatory ([facility]);Shock liver;Leukocytosis, unspecified type;Community acquired pneumonia, unspecified laterality;Pulmonary infiltrates;Acute encephalopathy;Group A streptococcal infection;Empyema ([facility]) 12/27/2017 Telephone Critical Care Jesus [id number] Call Medicine Janusz Yin MD after 01/23/2017 Social History Tobacco Use Types Packs/Day Years Used Date Never Assessed Sex Assigned at Date Recorded Not on file Last Filed Vital Signs Vital Sign Reading Time Taken Blood Pressure 135/102 01/24/2018 4:08 PM CDT Pulse 93 01/24/2018 4:08 PM CDT Temperature 37.2 C (98.9 F) 01/24/2018 4:08 PM CDT Respiratory Rate 20 01/24/2018 4:08 PM CDT Oxygen Saturation 96% 01/24/2018 4:08 PM CDT Inhaled Oxygen Concentration - - Weight 127.9 kg (281 lb 14.4 oz) 01/23/2018 3:56 AM CDT Height 165.1 cm (5' 5") 12/27/2017 10:34 PM CDT Body Mass Index 46.91 01/23/2018 3:56 AM CDT Plan of Treatment Date Type Specialty Care Team Description 02/02/2018 Office Visit Cardiology Jaycee Anand MD [address] [address] Procedures Procedure Name Priority Date/Time Associated Diagnosis Comments EPHRAIM 01/13/2018 9:07 AM Pleural effusion CDT THORACOTOMY,DECORTICATIO 01/13/2018 9:07 AM Pleural effusion N CDT THORACOSCOPY (VATS) 01/13/2018 9:07 AM Pleural effusion CDT INSERTION OF CANNULA FOR 12/30/2017 9:29 AM Cardiogenic shock ECMO MCR - IP PROC CDT (HCC) ONLY Case Notes CVR-34. 1579mGy L CATH & CORONARY ANGIOS 12/28/2017 10:41 AM CDT Cardiac shock syndrome ( HCC) R CATH 12/28/2017 10:41 AM CDT Cardiac shock syndrome (HCC) INSERTION OF CANNULA FOR ECMO 12/28/2017 10:41 AM CDT Cardiac shock syndrome (HCC) MCR - IP PROC ONLY after 01/23/2017 Results aPTT (01/24/2018 12:40 PM)Only the most recent of44 resultswithin the time period is included. Component Value Ref Range PTT 57.7 (H) 22.5 - 36.0 seconds Specimen Performing Laboratory Blood - Central Venous Line [address] [address] [place] lung scan (V/Q) (01/24/2018 10:50 AM) Specimen Performing Laboratory GE RIS Narrative FINAL REPORT PROCEDURE: V/Q LUNG SCAN CPT CODE: 54572 INDICATION: Chest pain PROTOCOL: 9.2 mCi ofXe-133 gas was administered by inhalation. Rebreathing/washout images were obtained in the anterior and the posterior projections.4.1 mCi of Tc-99m MAA was then injected intravenously, and static perfusion images were obtained in multiple projections. FINDINGS: Ventilation: Initial tracer distribution is irregular in the right lung and decreased in the left mid and lower lung field. Washout is mildly delayed. Perfusion: There is nonsegmental decrease in the right mid lung field and more prominent, nonsegmental decrease in the left mid and lower lung javier with prominence of the left oblique fissure. IMPRESSION: 1. Very low probability of acute pulmonary embolization. 2. Bilateral parenchymal abnormality and additional left pleural abnormality. Signed: Yeimy Barker MD Report Verified Date/Time:01/24/2018 12:29:41 Reading Location: [address] [facility] Reading Room Procedure Note Interface, External Ris In - 01/24/2018 12:31 PM CDT FINAL REPORT PROCEDURE: V/Q LUNG SCAN CPT CODE: 03211 INDICATION: Chest pain PROTOCOL: 9.2 mCi of Xe-133 gas was administered by inhalation. Rebreathing/washout images were obtained in the anterior and the posterior projections. 4.1 mCi of Tc-99m MAA was then injected intravenously, and static perfusion images were obtained in multiple projections. FINDINGS: Ventilation: Initial tracer distribution is irregular in the right lung and decreased in the left mid and lower lung field. Washout is mildly delayed. Perfusion: There is nonsegmental decrease in the right mid lung field and more prominent, nonsegmental decrease in the left mid and lower lung javier with prominence of the left oblique fissure. IMPRESSION: 1. Very low probability of acute pulmonary embolization. 2. Bilateral parenchymal abnormality and additional left pleural abnormality. Signed: Yeimy Barker MD Report Verified Date/Time: 01/24/2018 12:29:41 Reading Location: [address] [facility] Reading Room Manual Differential (01/24/2018 4:44 AM)Only the most recent of24 resultswithin the time period is included. Component Value Ref Range % Neutros 60 % % Lymphs 10 % % Monos 15 % % Eos 11 % % Myelo 3 (H) 0 - 0 % % Atypical Lymphs 1 (H) 0 - 0 % # Neutros 7.98 (H) 1.56 - 6.13 K/ul # Lymphs 1.33 1.18 - 3.74 K/ul # Monos 2.00 (H) 0.24 - 0.36 K/uL # Eos 1.46 (H) 0.04 - 0.36 K/uL # Myelo 0.40 (H) 0.00 - 0.00 K/uL # Atypical Lymphs 0.13 (H) 0.00 - 0.00 K/uL Total Counted 100 WBC Morphology Normal Platelet Morphology Normal Anisocytosis 2+ moderate Macrocytes 2+ moderate Artifact Present Platelet Conc Adequate Specimen Performing Laboratory Blood [place] [address] Narrative Received comment: User comments: Slide comments: CBC with platelet count + automated diff (01/24/2018 4:44 AM)Only the most recent of33 resultswithin the time period is included. Component Value Ref Range WBC 13.3 (H) 3.5 - 10.5 K/L RBC 2.90 (L) 3.93 - 5.22 M/L Hemoglobin 8.5 (L) 11.2 - 15.7 GM/DL Hematocrit 26.1 (L) 34.1 - 44.9 % MCV 90.0 79.4 - 94.8 fL MCH 29.3 25.6 - 32.2 pg MCHC 32.6 32.2 - 35.5 GM/DL RDW 15.7 (H) 11.7 - 14.4 % Platelets 284 150 - 450 K/CU MM MPV 9.8 9.4 - 12.3 fL nRBC 0 0 - 0 /100 WBC Specimen Performing Laboratory Blood - Central Venous Line [address] [address] CBC with platelet count + automated diff (01/24/2018 4:44 AM)Only the most recent of33 resultswithin the time period is included. Specimen Performing Laboratory Blood Narrative The following orders were created for panel order CBC with platelet count + automated diff. Procedure Abnormality Status --------- ------ CBC with platelet count ...[[id number]]AbnormalFinal result Please view results for these tests on the individual orders. Magnesium (01/24/2018 4:44 AM)Only the most recent of45 resultswithin the time period is included. Component Value Ref Range Magnesium 2.2 1.6 - 2.6 mg/dL Specimen Performing Laboratory Blood - Central Venous Line [address] [address] Basic Metabolic Panel (01/24/2018 4:44 AM)Only the most recent of35 resultswithin the time period is included. Component Value Ref Range Sodium 133 (L) 136 - 145 meq/L Potassium 4.8 3.5 - 5.1 meq/L Chloride 95 (L) 98 - 107 meq/L CO2 20 (L) 22 - 29 meq/L BUN 70 (H) 7 - 21 mg/dL Creatinine 5.56 (H) 0.57 - 1.25 mg/dL Glucose 94 70 - 105 mg/dL Calcium 9.3 8.4 - 10.2 mg/dL EGFR 8Comment: ESTIMATED GFR IS NOT ACCURATE CREATININE mL/min/1.73 sq m CLEARANCE IN PREDICTING GLOMERULAR FILTRATION RATE. ESTIMATED GFR IS NOT APPLICABLE FOR DIALYSIS PATIENTS. Specimen Performing Laboratory Blood - Central Venous Line [address] [address] XR chest 2 views (01/23/2018 9:50 PM) Specimen Performing Laboratory GE RIS Narrative FINAL REPORT INDICATION: chest pain COMPARISON: January 20, 2018 TECHNIQUE: Frontal and lateral views of the chest. IMPRESSION: Left airspace disease is not significantly improved. There are trace bilateral effusions. No pneumothorax is visible. Mediastinal contours and support hardware are stable. Signed: JR Aguilar Robert MD Report Verified Date/Time:01/23/2018 22:10:11 Reading Location: [address] Reading Room Procedure Note Interface, External Ris In - 01/23/2018 10:12 PM CDT FINAL REPORT INDICATION: chest pain COMPARISON: January 20, 2018 TECHNIQUE: Frontal and lateral views of the chest. IMPRESSION: Left airspace disease is not significantly improved. There are trace bilateral effusions. No pneumothorax is visible. Mediastinal contours and support hardware are stable. Signed: JR Aguilar Robert MD Report Verified Date/Time: 01/23/2018 22:10:11 Reading Location: [address] Reading Room (Hemogram only) (01/23/2018 9:34 PM) Component Value Ref Range WBC 12.7 (H) 3.5 - 10.5 K/L RBC 2.88 (L) 3.93 - 5.22 M/L Hemoglobin 8.6 (L) 11.2 - 15.7 GM/DL Hematocrit 26.3 (L) 34.1 - 44.9 % MCV 91.3 79.4 - 94.8 fL MCH 29.9 25.6 - 32.2 pg MCHC 32.7 32.2 - 35.5 GM/DL RDW 15.8 (H) 11.7 - 14.4 % Platelets 263 150 - 450 K/CU MM MPV 9.4 9.4 - 12.3 fL nRBC 0 0 - 0 /100 WBC Specimen Performing Laboratory Blood [address] [address] Venous doppler arms bilateral (01/23/2018 6:10 PM)Only the most recent of2 resultswithin the time period is included. Component Value Ref Range Ejection Fraction Specimen Performing Laboratory [facility] ECHO HEART[facility] MKCKESSON CPACS Impressions Right Impression 1. There is partial echogenic deep venous obstruction in the jugular vein. 2. There is no deep venous obstruction in the subclavian, axillary, brachial, radial or ulnar veins. 3. There is no superficial venous obstruction in the basilic vein. 4. There is partial echogenic superficial venous obstruction in the antecubital fossa cephalic vein. Left Impression 1. The jugular vein is not visualized due to line/bandages. 2. There is no deep venous obstruction in the subclavian, axillary, brachial, radial or ulnar veins. 3. There is no superficial venous obstruction in the basilic vein. 4. There is partial echogenic superficial venous obstruction in the antecubital fossa cephalic vein. Conclusions Summary Venous duplex imaging and compression of the bilateral upper extremities was performed. The veins were adequately visualized except as noted above. The right deep venous system was positive with chronic thrombus. The bilateral superficial venous systems were positive with chronic thrombus. Signature Velocities are measured in cm/s ; Diameters are measured in cm Narrative [facility] - Upper Extremities Veins Demographics Patient Name NAI,Date of Study 01/23/2018 JAYCEE [id number] Age 47 Visit Number [id number] Gender Female Accession Number [id number] Date of 1970 [facility] Room Number 1119 Physician SonographMarta GreenJ. Abraham Rubin MD, RVSPhysician RPVI Krista Gomes RVT Procedure Type of Study: Veins: Upper Extremities Veins, VENOUS DOPPLER ARMS, BILATERAL. Indications for Study:Prior history of DVT . Patient Status:Routine. Study Location:Vascular Lab. Technical Quality:Adequate visualization. - Results were reported to:Shikha DELGADO @ 18:26. Risk Factors History of Disease + + + + !Diagnosis !Date!Comments ! + + + + !History/Risk!!Immobilization, Recent ECMO, Obesity, Multiple! !Factors:!!Invasive Lines, Intubated, Septic Shock, Left IJ! !!!Dialysis Catheter ! + + + + !History/Risk!01/23/2018!History of right upper extremity DVT and! !Factors:!!bilateral upper extremity superficial venous! !!!thrombosis 01/04/2018! + + + + Procedure Note Interface, External Ris In - 01/24/2018 4:40 AM CDT [facility] - Upper Extremities Veins Demographics Patient Name NAI, Date of Study 01/23/2018 JAYCEE Age 47 Visit Number [id number] Gender Female Accession Number [id number] Date of 1970 Referring [facility] Room Number 1119 Physician Purchase Request Editor Liban Moran Interpreting Steph Rubin MD, RVS Physician GERRY Gomes RVT Procedure Type of Study: Veins: Upper Extremities Veins, VENOUS DOPPLER ARMS, BILATERAL. Indications for Study:Prior history of DVT . Patient Status:Routine. Study Location:Vascular Lab. Technical Quality:Adequate visualization. - Results were reported to:Shikha DELGADO @ 18:26. Risk Factors History of Disease + + + + !Diagnosis !Date !Comments ! + + + + !History/Risk ! !Immobilization, Recent ECMO, Obesity, Multiple ! !Factors: ! !Invasive Lines, Intubated, Septic Shock, Left IJ! ! ! !Dialysis Catheter ! + + + + !History/Risk !01/23/2018!History of right upper extremity DVT and ! !Factors: ! !bilateral upper extremity superficial venous ! ! ! !thrombosis 01/04/2018 ! + + + + Impressions Right Impression 1. There is partial echogenic deep venous obstruction in the jugular vein. 2. There is no deep venous obstruction in the subclavian, axillary, brachial, radial or ulnar veins. 3. There is no superficial venous obstruction in the basilic vein. 4. There is partial echogenic superficial venous obstruction in the antecubital fossa cephalic vein. Left Impression 1. The jugular vein is not visualized due to line/bandages. 2. There is no deep venous obstruction in the subclavian, axillary, brachial, radial or ulnar veins. 3. There is no superficial venous obstruction in the basilic vein. 4. There is partial echogenic superficial venous obstruction in the antecubital fossa cephalic vein. Conclusions Summary Venous duplex imaging and compression of the bilateral upper extremities was performed. The veins were adequately visualized except as noted above. The right deep venous system was positive with chronic thrombus. The bilateral superficial venous systems were positive with chronic thrombus. Signature Velocities are measured in cm/s ; Diameters are measured in cm Manual Differential (01/21/2018 4:19 AM)Only the most recent of2 resultswithin the time period is included. Component Value Ref Range % Neutros (manual) 66 % % Lymphs (manual) 16 % % Monos (manual) 6 % % Eos (manual) 7 % % Metamyelo (manual) 2 (H) 0 - 0 % % Bands (manual) 3 0 - 10 % # Neutros (manual) 7.59 1.80 - 8.00 K/L # Lymphs (manual) 1.84 1.48 - 4.50 K/L # Monos (manual) 0.69 0.00 - 1.30 K/L # Eos (manual) 0.81 (H) 0.00 - 0.50 K/L # Metamyelo (manual) 0.23 (H) 0.00 - 0.00 K/L # Bands (manual) 0.3 0.0 - 0.8 K/L Total Counted 100 Bands plus Segmented Neutrophils 7.94 WBC Morphology Normal Platelet Morphology Normal Anisocytosis 1+ few Hypochromia 1+ few Macrocytes 1+ few Poikilocytes 1+ few Specimen Performing Laboratory Blood [facility] [address] [place] [address] XR chest 1 view portable / bedside (01/20/2018 11:09 AM)Only the most recent of30 resultswithin the time period is included. Specimen Performing Laboratory GE RIS Narrative FINAL REPORT Chest one view compared to January 19 Discussion: Airspace opacities left mid to low lung unchanged. Pulmonary congestion also visible on the right unchanged. Left-sided chest tubes have been removed. No gross evidence of effusion or pneumothorax. Central lines in place at the SVC level. Signed: Jony Mcfadden MD Report Verified Date/Time:01/20/2018 11:34:18 Reading Location: [facility] Radiology Reading Room Procedure Note Interface, External Ris In - 01/20/2018 11:36 AM CDT FINAL REPORT Chest one view compared to January 19 Discussion: Airspace opacities left mid to low lung unchanged. Pulmonary congestion also visible on the right unchanged. Left-sided chest tubes have been removed. No gross evidence of effusion or pneumothorax. Central lines in place at the SVC level. Signed: Jony Mcfadden MD Report Verified Date/Time: 01/20/2018 11:34:18 Reading Location: [facility] Radiology Reading Room Hepatic function panel (01/20/2018 3:42 AM)Only the most recent of11 resultswithin the time period is included. Component Value Ref Range Protein, Total 6.5 6.0 - 8.3 gm/dL Albumin 2.5 (L) 3.5 - 5.0 g/dL Total Bilirubin 0.6 0.2 - 1.2 mg/dL Bilirubin, Direct 0.4 0.1 - 0.5 mg/dL Alkaline Phosphatase 133 40 - 150 U/L AST 110 (H) 5 - 34 U/L ALT 56 (H) 6 - 55 U/L Specimen Performing Laboratory Blood [address] [address] ECG 12 lead (01/19/2018 6:41 PM)Only the most recent of12 resultswithin the time period is included. Specimen Performing Laboratory GE MUSE Narrative Ventricular Rate 70 BPM Atrial Rate 70 BPM P-R Interval 136 ms QRS Duration 88 ms Q-T Interval 462 ms QTC Calculation(Bazett) 498 ms P [place] 71 degrees R [place] 24 degrees T [place] 43 degrees Normal sinus rhythm Nonspecific T wave abnormality Artifact noted Abnormal ECG When compared with ECG of 18-JAN-2018 21:37, No significant change was found Confirmed by Leodan Julien ([id number]) on 01/20/2018 10:05:31 AM Procedure Note Interface, External Ris In - 01/20/2018 10:05 AM CDT Ventricular Rate 70 BPM Atrial Rate 70 BPM P-R Interval 136 ms QRS Duration 88 ms Q-T Interval 462 ms QTC Calculation(Bazett) 498 ms P [place] 71 degrees R [place] 24 degrees T [place] 43 degrees Normal sinus rhythm Nonspecific T wave abnormality Artifact noted Abnormal ECG When compared with ECG of 18-JAN-2018 21:37, No significant change was found Confirmed by Leodan Julien ([id number]) on 01/20/2018 10:05:31 AM Tissue Exam (01/19/2018 9:10 AM) Component Value Ref Range Case Report Surgical Pathology Report Case: [id number] Authorizing Provider:Imani Garcia MD Collected: 01/19/2018909 Ordering Location: [address] Received: 01/19/2018909 Service Pathologist: Primo Renteria MD Specimen:Skin DIAGNOSIS A. SITE NOT SPECIFIED, SKIN PUNCH BIOPSY: - PRURIGO/CHRONIC SPONGIOTIC DERMATITIS, WITH SCAR Signing Pathologist Direct Phone Line: [phone] CPT Code(s) 32882; 91166 CLINICAL HISTORY None given SPECIMEN SOURCE Skin punch biopsy GROSS DESCRIPTION The specimen is received in a formalin-filled container labeled with the patient's information and labeled "skin punch biopsy" and consists of a nonpigmented punch biopsy measuring 0.3 cm in greatest dimension. The resection margin is inked blue. The specimen is bisected and submitted entirely in A1. CG/ew MICROSCOPIC DESCRIPTION A. Sections reveal skin with focal parakeratosis, acanthosis, focal spongiosis, focal lymphocytic exocytosis in the epidermis, and dermal fibrosis. SPECIAL STUDIES The following special studies were performed on this case and the interpretation is incorporated in the diagnostic report above: GMS - Negative Specimen Performing Laboratory Tissue - Skin [address] [address] Hemodialysis (01/17/2018 10:58 PM) Ruy Travis RN 01/17/2018 10:58 PM HD treatment completed, tolerated well.Net UF -3.0L in 210min. CVC care provided, packed with heparin as ordered.Pt in stable condition, report given to primary care RN. Lab Results Component Value Date GLUCOSE 86 01/17/2018 CALCIUM 8.3 (L) 01/17/2018 NA 129 (L) 01/17/2018 K 4.4 01/17/2018 CO2 23 01/17/2018 CL 94 (L) 01/17/2018 BUN 55 (H) 01/17/2018 CREATININE 5.75 (H) 01/17/2018 Lab Results Component Value Date WBC 13.5 (H) 01/17/2018 HGB 9.4 (L) 01/17/2018 HCT 29.1 (L) 01/17/2018 MCV 89.8 01/17/2018 PLT 238 01/17/2018 Lab Results Component Value Date HEPBSAG Nonreactive 01/12/2018 Vancomycin level, trough (01/17/2018 4:50 AM)Only the most recent of3 resultswithin the time period is included. Component Value Ref Range Vancomycin Tr 15.1 10.0 - 20.0 ug/mL Specimen Performing Laboratory Blood [address] [address] Phosphorus (01/16/2018 4:57 AM)Only the most recent of36 resultswithin the time period is included. Component Value Ref Range Phosphorus 5.8 (H) 2.3 - 4.7 mg/dL Specimen Performing Laboratory Blood - Central Venous Line [address] [address] TRANSFUSION SERVICE REPORT - SCAN (01/15/2018 6:01 PM)Only the most recent of10 resultswithin the time period is included.Oxygen saturation, measured (02/2018 3:46 AM)Only the most recent of8 resultswithin the time period is included. Component Value Ref Range O2 Saturation (Measured) 66.9 % Specimen Performing Laboratory Blood [address] [address] Calcium, Ionized (01/15/2018 3:46 AM)Only the most recent of43 resultswithin the time period is included. Component Value Ref Range Calcium, Ion 1.07 (L) 1.12 - 1.27 mmol/L pH, Blood 7.35 Specimen Performing Laboratory Blood [address] [address] Blood gas, arterial (01/15/2018 3:46 AM)Only the most recent of76 resultswithin the time period is included. Component Value Ref Range pH, Arterial 7.35 7.35 - 7.45 pCO2, Arterial 44 35 - 45 mmHg pO2, Arterial 87 80 - 90 mmHg O2 Sat, Arterial 96.3 96.0 - 97.0 % HCO3, Arterial 24 21 - 29 mmol/L Base Excess, Arterial -1.5 -2.0 - 3.0 mmol/L Patient Temperature 36.7 C FIO2 36.0 % Specimen Performing Laboratory Blood, Arterial [address] [address] Prepare RBC (01/14/2018 11:54 PM)Only the most recent of2 resultswithin the time period is included. Component Value Ref Range CROSSMATCH COMPATIBLE Unit ABO A Pos UNIT NUMBER [id number] Status TRANSFUSED Blood Bank Product RED BLOOD CELLS PRODUCT CODE [id number] CROSSMATCH COMPATIBLE Unit ABO A Pos UNIT NUMBER [id number] Status TRANSFUSED Blood Bank Product RED BLOOD CELLS PRODUCT CODE [id number] Specimen Performing Laboratory [facility] [place] Vancomycin level, random (01/14/2018 11:03 AM)Only the most recent of2 resultswithin the time period is included. Component Value Ref Range Vancomycin Rm 25.1 ug/mL Specimen Performing Laboratory Blood [address] [address] Narrative Reference Range: No Normals Lactic acid, arterial, whole blood (01/14/2018 3:40 AM)Only the most recent of23 resultswithin the time period is included. Component Value Ref Range Lactate, Art 2.9 (H) 0.5 - 2.2 mmol/L Specimen Performing Laboratory Blood, Arterial [address] [address] Narrative Effective 11/12/2015: Units/Reference Range Change New: 0.5-2.2 mmol/LPrevious: 5-20 mg/dL POC-Glucose meter (01/14/2018 1:17 AM)Only the most recent of45 resultswithin the time period is included. Component Value Ref Range POC-Glucose Meter 85Comment: TESTED AT [address] 70 - 110 mg/dL [id number] Specimen Performing Laboratory Blood [address] [address] Hemoglobin and hematocrit (01/13/2018 10:37 PM)Only the most recent of2 resultswithin the time period is included. Component Value Ref Range Hemoglobin 9.6 (L) 11.2 - 15.7 GM/DL Hematocrit 29.8 (L) 34.1 - 44.9 % Specimen Performing Laboratory Blood [address] [address] [facility] (ABG,NA,K,H&H,GLUCOSE) (01/13/2018 2:49 PM)Only the most recent of8 resultswithin the time period is included. Specimen Performing Laboratory Blood, Arterial Narrative The following orders were created for panel order [facility] (ABG,NA,K,H&H,GLUCOSE). Procedure Abnormality Status --------- ------ Blood gas, arterial[[id number]]AbnormalFinal result Sodium Na-Stat Lab[[id number]] NormalFinal result Potassium-Stat Lab[[id number]] NormalFinal result Glucose-Stat Lab[[id number]] AbnormalFinal result HGB/HCT (H&H)-Stat Lab[[id number]] Abnormal Final result Please view results for these tests on the individual orders. Potassium-Stat Lab (01/13/2018 2:49 PM)Only the most recent of12 resultswithin the time period is included. Component Value Ref Range Potassium 4.4 3.6 - 5.5 meq/L Specimen Performing Laboratory Blood, Arterial [address] [address] Sodium Na-Stat Lab (01/13/2018 2:49 PM)Only the most recent of10 resultswithin the time period is included. Component Value Ref Range Sodium 136 135 - 148 meq/L Specimen Performing Laboratory Blood, [address] [address] Glucose-Stat Lab (01/13/2018 2:49 PM)Only the most recent of17 resultswithin the time period is included. Component Value Ref Range Glucose 199 (H) 70 - 110 mg/dL Specimen Performing Laboratory Blood, [address] [address] HGB/HCT (H&H)-Stat Lab (01/13/2018 2:49 PM)Only the most recent of12 resultswithin the time period is included. Component Value Ref Range Hemoglobin 10.5 (L) 12.0 - 15.0 g/dL Hematocrit 31.0 (L) 36.0 - 45.0 % Specimen Performing Laboratory Blood, [address] [address] Hemoglobin-Stat Lab (01/13/2018 12:15 PM) Component Value Ref Range Hemoglobin 8.2 (L) 12.0 - 15.0 g/dL Specimen Performing Laboratory Blood, [address] [address] Hematocrit-Stat Lab (01/13/2018 12:15 PM) Component Value Ref Range Hematocrit 24.0 (L) 36.0 - 45.0 % Specimen Performing Laboratory Blood, [address] [address] Screen, urine (01/13/2018 8:36 AM) Component Value Ref Range Preg Test, Ur Negative Specimen Performing Laboratory Urine - Urine, Clean Catch [address] [address] Type and screen, automated (01/12/2018 9:38 PM)Only the most recent of5 resultswithin the time period is included. Component Value Ref Range ABO/RH AUTOMATED (BEAKER) A POSITIVE Ab Scrn NEGATIVE Specimen Performing Laboratory Blood [address] [address] Hepatitis B surface antigen (01/12/2018 6:58 PM) Component Value Ref Range hepatitis B Surface Ag Nonreactive Nonreactive Specimen Performing Laboratory Blood - Central Venous Line [address] [address] Lactic acid, venous, whole blood (01/12/2018 6:24 AM) Component Value Ref Range Lactate, Venous 0.5 0.5 - 2.2 mmol/L Specimen Performing Laboratory Blood [address] [address] Narrative Effective 11/12/2015: Units/Reference Range Change New: 0.5-2.2 mmol/LPrevious: 5-20 mg/dL D-dimer (01/10/2018 3:25 AM)Only the most recent of16 resultswithin the time period is included. Component Value Ref Range D-Dimer, Quant 6.95 (H) <0.50 MG/L FEU Specimen Performing Laboratory Blood - Line, Arterial [address] [address] Narrative Intended Use: The D-Dimer Assay can be used to aid in the diagnosis of Deep Vein Thrombosis (DVT) and Pulmonary Embolism Disease (PED). In patients with low pre-test probability, various studies concerning STA Liatest D-dimer test have reported that with a cutoff value of 0.50 MG/L FEU, the Negative Predictive Value (NPV) regarding the exclusion of thrombosis is within 95-100% range. Lactate dehydrogenase (LDH) (01/10/2018 3:25 AM)Only the most recent of16 resultswithin the time period is included. Component Value Ref Range LDH 348 (H) 125 - 220 U/L Specimen Performing Laboratory Blood - Line, Arterial [address] [address] Troponin I (01/08/2018 11:56 PM) Component Value Ref Range Troponin I <0.01 0.00 - 0.03 ng/mL Specimen Performing Laboratory Blood [address] [address] Narrative Troponin I (TnI) levels must be interpreted in the context of the presenting symptoms and the clinical findings. Elevated TnI levels indicate myocardial damage, but are not specific for ischemic heart disease. Elevated TnI levels are seen in patients with other cardiac conditions (including myocarditis and congestive heart failure), and slight TnI elevations occur in patients with other conditions, including sepsis, renal failure, acidosis, acute neurological disease, and persistent tachyarrhythmia. Prepare Leuko-Red RBC (01/08/2018 11:54 PM)Only the most recent of4 resultswithin the time period is included. Component Value Ref Range CROSSMATCH COMPATIBLE Unit ABO A Pos UNIT NUMBER [id number] Status TRANSFUSED Blood Bank Product RED BLOOD CELLS PRODUCT CODE [id number] Specimen Performing Laboratory Other [facility] [place] Clostridium difficile GDH Toxin (01/08/2018 4:14 AM) Component Value Ref Range C. Difficle Toxin Negative Negative C. Difficile GDH Antigen NegativeComment: No indication of Clostridium Negative difficile infection and no colonization. Discontinue enteric isolation and therapy. Specimen Performing Laboratory Stool [address] [address] Narrative Testing performed by [employer] Rapid Cassette Assay.For GDH, published sensitivity of the assay is 98.7% compared to cytotoxicity testing.For Toxin AB, published sensitivity is 87.8% and specificity 99.4% compared to cytotoxicity testing. Verification of kit performance was done by the [facility] Microbiology Lab prior to clinical use. Occult blood, stool (01/08/2018 4:14 AM) Component Value Ref Range Occult blood Positive (A) Negative Specimen Performing Laboratory Stool [address] [address] Potassium (01/07/2018 2:23 PM)Only the most recent of51 resultswithin the time period is included. Component Value Ref Range Potassium 5.1 3.5 - 5.1 meq/L Specimen Performing Laboratory Blood [address] [address] Transfuse Leuko-Red RBC (01/07/2018 12:58 PM)Only the most recent of8 resultswithin the time period is included.Sodium (01/07/2018 8:37 AM)Only the most recent of21 resultswithin the time period is included. Component Value Ref Range Sodium 134 (L) 136 - 145 meq/L Specimen Performing Laboratory Blood [address] [address] XR abdomen / KUB 1 view (01/06/2018 3:48 PM)Only the most recent of4 resultswithin the time period is included. Specimen Performing Laboratory [facility] Narrative FINAL REPORT CLINICAL HISTORY: feeding tube placement TECHNIQUE: Supine abdomen IMPRESSION: The tip of the feeding tube is in the distal stomach. The partially visualized bowel gas pattern is nonspecific. Signed: Evan Lyon MD Report Verified Date/Time:01/06/2018 20:30:47 Reading Location: [facility] C013 Consult Reading Room Procedure Note Interface, External Ris In - 01/06/2018 8:31 PM CDT FINAL REPORT CLINICAL HISTORY: feeding tube placement TECHNIQUE: Supine abdomen IMPRESSION: The tip of the feeding tube is in the distal stomach. The partially visualized bowel gas pattern is nonspecific. Signed: Evan Lyon MD Report Verified Date/Time: 01/06/2018 20:30:47 Reading Location: [facility] C013 Consult Reading Room CARDIOGRAM REPORT - SCAN (01/06/2018 1:54 PM)Only the most recent of4 resultswithin the time period is included.Transesophageal echo (01/06/2018 9: 05 AM) Component Value Ref Range Ejection Fraction Specimen Performing Laboratory [facility] ECHO HEARTLAB [facility] Narrative Transesophageal Echocardiography Report (EPHRAIM) Demographics Patient Name NAI, Date of Study01/06/2018 JAYCEE [id number] Female Visit Number [id number] Unknown [id number] Room [id number] Number Date of Birth1970Referring Niurka Luis Physician Federico Age47 year(s)SonographerOscar BRITTANY Huang Interpreting Blayne Zuniga MD Physician Fellow JULISSA Hawley Procedure Type of Study EPHRIAM procedure:TRANSESOPHAGEAL ECHO Indications:Endocarditis. Clinical History HYPOTHYROID,BI-POLAR DISORDER,S/P R/L/HEART CATH Height: 66 inches Weight: 130.64 kg (288.01 lbs) BSA: 2.34 m^2 BMI: 46.48 kg/m^2 HR: 78 bpm BP: 115/53 mmHg Procedure Informed Consent EPHRAIM procedure notes The patient was counseled and informed consent was obtained. Topical and intravenous anesthesia was administered. The esophagus was intubated without difficulty. The probe was passed and all standard echocardiographic views were obtained. Moderate sedation by performing MD using 4 mg IV versed and 100 mcg IV fentanyl. The patient tolerated the procedure well. Summary No EPHRAIM evidence of endocarditis. Previous Study Compared to prior study dated 01/05/18, there is no significant change. Signature Findings Rhythm/BPRegular sinus rhythm during the exam. Left Ventricle The left ventricle is normal in size, wall thickness, and contractility. Left AtriumLA size is normal . Right VentricleThe right ventricular chamber size and systolic function are within normal limits. Right Atrium RA size is normal. Atrial SeptumNormal interatrial septum by available views and doppler. Aortic Valve Normal AoV structure. There is no aortic regurgitation. Mitral Valve Normal MV structure. No evidence of mitral regurgitation. Tricuspid ValveTV structure is normal. A trace of tricuspid regurgitation. Pulmonic Valve Normal PV structure with trace pulmonary regurgitation. AortaAortic root size (SInus of Valsalva diameter) is normal . PericardiumNo significant pericardial effusion is visualized. IVC/SVC/PA/PV/PleuralThe right upper pulmonary vein (RUPV) is normal . The superior vena cava is well visualized with an IV line seen without evidence of vegetation. A left pleural effusion is noted. Procedure Note Interface, External Ris In - 01/06/2018 1:06 PM CDT Transesophageal Echocardiography Report (EPHRAIM) Demographics Patient Name NAI, Date of Study 01/06/2018 JAYCEE Gender Female Visit Number [id number] Race Unknown Room Number 7101 Number Date of 1970 Referring Niurka Luis Physician Federico Age 47 year(s) Purchase Request Editor Hernan Huang, BRITTANY Rushing Interpreting Blayne Zuniga MD Physician Fellow JULISSA Hawley Procedure Type of Study EPHRAIM procedure:TRANSESOPHAGEAL ECHO Indications:Endocarditis. Clinical History HYPOTHYROID,BI-POLAR DISORDER,S/P R/L/HEART CATH Height: 66 inches Weight: 130.64 kg (288.01 lbs) BSA: 2.34 m^2 BMI: 46.48 kg/m^2 HR: 78 bpm BP: 115/53 mmHg Procedure Informed Consent EPHRAIM procedure notes The patient was counseled and informed consent was obtained. Topical and intravenous anesthesia was administered. The esophagus was intubated without difficulty. The probe was passed and all standard echocardiographic views were obtained. Moderate sedation by performing MD using 4 mg IV versed and 100 mcg IV fentanyl. The patient tolerated the procedure well. Summary No EPHRAIM evidence of endocarditis. Previous Study Compared to prior study dated 01/05/18, there is no significant change. Signature Findings Rhythm/BP Regular sinus rhythm during the exam. Left Ventricle The left ventricle is normal in size, wall thickness, and contractility. Left Atrium LA size is normal . Right Ventricle The right ventricular chamber size and systolic function are within normal limits. Right Atrium RA size is normal. Atrial Septum Normal interatrial septum by available views and doppler. Aortic Valve Normal AoV structure. There is no aortic regurgitation. Mitral Valve Normal MV structure. No evidence of mitral regurgitation. Tricuspid Valve TV structure is normal. A trace of tricuspid regurgitation. Pulmonic Valve Normal PV structure with trace pulmonary regurgitation. Aorta Aortic root size (SInus of Valsalva diameter) is normal . Pericardium No significant pericardial effusion is visualized. IVC/SVC/PA/PV/Pleural The right upper pulmonary vein (RUPV) is normal . The superior vena cava is well visualized with an IV line seen without evidence of vegetation. A left pleural effusion is noted. PT/aPTT (01/06/2018 12:53 AM)Only the most recent of4 resultswithin the time period is included. Component Value Ref Range Protime 15.7 (H) 11.7 - 14.7 seconds INR 1.3 <=5.9 PTT 63.1 (H) 22.5 - 36.0 seconds Specimen Performing Laboratory [place] [address] Narrative RECOMMENDED COUMADIN/WARFARIN INR THERAPY RANGES STANDARD DOSE: 2.0 - 3.0 Includes: PROPHYLAXIS for venous thrombosis, systemic embolization; TREATMENT for venous thrombosis and/or pulmonary embolus. HIGH RISK: Target INR is 2.5-3.5 for patients with mechanical heart valves. 2D Echo W/Doppler(CW/PW/Color) (01/05/2018 12:36 PM)Only the most recent of2 resultswithin the time period is included. Component Value Ref Range Ejection Fraction Specimen Performing Laboratory [facility] ECHO HEARTLAB [facility]ON [facility] Narrative Transthoracic Echocardiography Report (TTE) Demographics Patient Name [facility], Date of Study 01/05/2018 JAYCEE [id number] Female Visit Number [id number] Room Number 7101 Number Date of Birth1970Referring Physician Clement Munroe Age47 year(s)Purchase Request Editor Rosmery Parish RDCS Kaylyn Garcia, Interpreting Mckay Atkins MD Procedure Type of Study TTE procedure:2DECHO W DOPPLER(CW/PW/COLOR) (LUPIS) Indications:Pericardial effusion and Hypotension or hemodynamic instability. Clinical History HYPOTHYROIDISM;ECMO 12/28/17-12/30/17;LCATH/RCATH 12/28/17; HGB 8 HCT 25.6 % DX: Contrast Medium: Definity. Height: 66 inches Weight: 130.64 kg (288.01 lbs) BSA: 2.34 m^2 BMI: 46.48 kg/m^2 HR: 90 bpm BP: 129/55 mmHg Summary The left ventricle is chamber size (by vol index) is normal (female - LVED vol - 29-61ml/m2). Normal LV wall thickness. All of the LV segments are hyperkinetic .Global LV systolic function hyperdynamic . LVEF by Mccormack's method of disk assessment is increased (>60%) . The LVEF was measured using Mccormack's bi-plane method of disk . Normal diastolic function. The right ventricular chamber size and systolic function are within normal limits. Unable to estimate peak systolic PA pressure; inadequate TR velocity signal. A loculated pericardial effusion is noted posteriorly ( 1.8cm) Previous Study In comparison with the prior exam 01/02/2018 the following changes are noted: ECMO support has been removed . Signature Findings Technical Quality: Technically adequate exam. Left Ventricle LV endocardium is adequately visualized with IV ultrasound enhancing agent. The left ventricle is chamber size (by vol index) is normal (female - LVED vol - 29-61ml/m2). Normal LV wall thickness. All of the LV segments are hyperkinetic . Global LV systolic function hyperdynamic . LVEF by Mccormack's method of disk assessment is increased (>60%) . The LVEF was measured using Mccormack's bi-plane method of disk . Normal diastolic function. Left AtriumLA size is normal (16-34 ml/m2) . Right VentricleThe right ventricular chamber size and systolic function are within normal limits. Right Atrium RA cavity size is normal . Aortic Valve Normal AoV structure and function by limited views and Doppler. Mitral Valve Normal MV structure and function by available views and Doppler. Tricuspid ValveTV is not well visualized. A trace of tricuspid regurgitation. Unable to estimate peak systolic PA pressure; inadequate TR velocity signal. Pulmonic Valve PV is not well visualized; function appears normal by Doppler visualized. AortaAortic root size (SInus of Valsalva diameter) is normal . PericardiumA loculated pericardial effusion is noted posteriorly ( 1.8cm) IVC/SVC/PA/PV/PleuralThe estimated RA pressure by IVC dynamics 5-10mmHg . The inferior vena cava size is normal . The inferior vena cava is adequately visualized. Chambers/Structures Left Atrium LA Volume: 47.42 ml LA Area: 16.56 cm^ 2 LA Vol. Index: 20 ml/m^2 Left Ventricle LVIDd: 3.76 cm LVIDs: 2.09 cm LV Septum Diastolic: 1.08 cm LV PW Diastolic: 1.08 cmLV FS: 44.4 % LVEDV Mccormack's:133.03 ml LVESV Mccormack's:44.34 mlLVEDVI: 57 ml/ m^2 LVEF Mccormack's: 66.7 %LVESVI: 19 ml/m^2 LVOT Diameter: 2.17 cm Aorta Ao Root S of Arleth.: 2.92 cm Doppler/Quantitative Measurements Mitral Valve MV Peak E-Wave: 1.09 m/s MV Peak A-Wave: 0.89 m/s E/A Ratio: 1.23 Peak Gradient: 4.72 mmHg Deceleration Time: 196.7 msec MV Berny. Peak: Aortic Valve Peak Velocity: 1.64 m/sMean Velocity: 1.12 m/s Peak Gradient: 10.75 mmHgMean Gradient: 5.67 mmHg AV Area (continuity): 2.71 cm^2 AV VTI: 27.01 cm AV DVI: 0.73 LVOT Peak Velocity: 1.18 m/s Peak Gradient: 5.56 mmHg Mean Velocity: 0.78 m/s Mean Gradient: 2.86 mmHg LVOT Diameter: 2.17 cmLVOT VTI: 19.78 cm LVOT Area: 3.7 cm^2 LVOT SV:73.12 ml LVOT CO: 6.58 l/min LVOT CI: 2.81 l/min/m^2 Procedure Note Interface, External Ris In - 01/05/2018 5:29 PM CDT Transthoracic Echocardiography Report (TTE) Demographics Patient Name NAI, Date of Study 01/05/2018 JAYCEE Gender Female Visit Number [id number] Race Unknown Room Number 7101 Number Date of 1970 Referring Physician Clement Munroe Age 47 year(s) Purchase Request Editor Rosmery Tarapete [facility] Coin Machine Collector Floresita Garcia, Interpreting Blayne Zuniga [facility] Physician Procedure Type of Study TTE procedure:2DECHO W DOPPLER(CW/PW/COLOR) (LUPIS) Indications:Pericardial effusion and Hypotension or hemodynamic instability. Clinical History HYPOTHYROIDISM;ECMO 12/28/17-12/30/17;LCATH/RCATH 12/28/17; HGB 8 HCT 25.6 % DX: Contrast Medium: Definity. Height: 66 inches Weight: 130.64 kg (288.01 lbs) BSA: 2.34 m^2 BMI: 46.48 kg/m^2 HR: 90 bpm BP: 129/55 mmHg Summary The left ventricle is chamber size (by vol index) is normal (female - LVED vol - 29-61ml/m2). Normal LV wall thickness. All of the LV segments are hyperkinetic .Global LV systolic function hyperdynamic . LVEF by Mccormack's method of disk assessment is increased (>60%) . The LVEF was measured using Mccormack's bi-plane method of disk . Normal diastolic function. The right ventricular chamber size and systolic function are within normal limits. Unable to estimate peak systolic PA pressure; inadequate TR velocity signal. A loculated pericardial effusion is noted posteriorly ( 1.8cm) Previous Study In comparison with the prior exam 01/02/2018 the following changes are noted: ECMO support has been removed . Signature Findings Technical Quality: Technically adequate exam. Left Ventricle LV endocardium is adequately visualized with IV ultrasound enhancing agent. The left ventricle is chamber size (by vol index) is normal (female - LVED vol - 29-61ml/m2). Normal LV wall thickness. All of the LV segments are hyperkinetic . Global LV systolic function hyperdynamic . LVEF by Mccormack's method of disk assessment is increased (>60%) . The LVEF was measured using Mccormack's bi-plane method of disk . Normal diastolic function. Left Atrium LA size is normal (16-34 ml/m2) . Right Ventricle The right ventricular chamber size and systolic function are within normal limits. Right Atrium RA cavity size is normal . Aortic Valve Normal AoV structure and function by limited views and Doppler. Mitral Valve Normal MV structure and function by available views and Doppler. Tricuspid Valve TV is not well visualized. A trace of tricuspid regurgitation. Unable to estimate peak systolic PA pressure; inadequate TR velocity signal. Pulmonic Valve PV is not well visualized; function appears normal by Doppler visualized. Aorta Aortic root size (SInus of Valsalva diameter) is normal . Pericardium A loculated pericardial effusion is noted posteriorly ( 1.8cm) IVC/SVC/PA/PV/Pleural The estimated RA pressure by IVC dynamics 5-10mmHg . The inferior vena cava size is normal . The inferior vena cava is adequately visualized. Chambers/Structures Left Atrium LA Volume: 47.42 ml LA Area: 16.56 cm^2 LA Vol. Index: 20 ml/m^2 Left Ventricle LVIDd: 3.76 cm LVIDs: 2.09 cm LV Septum Diastolic: 1.08 cm LV PW Diastolic: 1.08 cm LV FS: 44.4 % LVEDV Mccormack's:133.03 ml LVESV Mccormack's:44.34 ml LVEDVI: 57 ml/m^2 LVEF Mccormack's: 66.7 % LVESVI: 19 ml/m^2 LVOT Diameter: 2.17 cm Aorta Ao Root S of Arleth.: 2.92 cm Doppler/Quantitative Measurements Mitral Valve MV Peak E-Wave: 1.09 m/s MV Peak A-Wave: 0.89 m/s E/A Ratio: 1.23 Peak Gradient: 4.72 mmHg Deceleration Time: 196.7 msec MV Berny. Peak: Aortic Valve Peak Velocity: 1.64 m/s Mean Velocity: 1.12 m/s Peak Gradient: 10.75 mmHg Mean Gradient: 5.67 mmHg AV Area (continuity): 2.71 cm^2 AV VTI: 27.01 cm AV DVI: 0.73 LVOT Peak Velocity: 1.18 m/s Peak Gradient: 5.56 mmHg Mean Velocity: 0.78 m/s Mean Gradient: 2.86 mmHg LVOT Diameter: 2.17 cm LVOT VTI: 19.78 cm LVOT Area: 3.7 cm^2 LVOT SV:73.12 ml LVOT CO: 6.58 l/min LVOT CI: 2.81 l/min/m^2 CT chest without IV contrast (01/04/2018 10:04 PM) Specimen Performing Laboratory [employer] FINAL REPORT CT scan of the chest, abdomen and pelvis. CLINICAL HISTORY: Leukocytosis, source of infection. Patient has renal failure. COMPARISON STUDY: Chest x-ray and abdominal x-ray dated January 04, 2018 and ultrasound of the abdomen dated January 04, 2018. TECHNIQUE: Contiguous helical slices were acquired through the chest, abdomen and pelvis without the administration of oral or intravenous contrast. This exam was performed according to our department dose optimization program which includes automated exposure control, adjustment of the mA and/or kV according to the patient's size and/or use of iterative reconstruction technique. FINDINGS: The mediastinum demonstrates a left-sided jugular line and right-sided PICC line place. There is a left-sided chest tube identified. Trace pericardial fluid is seen. No suspicious mediastinum masses or adenopathy are seen. An endotracheal tube and feeding tube are noted. There is a small loculated left-sided pleural effusion and a small right-sided pleural effusion. The tracheobronchial tree is clear with no endobronchial lesions. The pulmonary parenchyma demonstrates atelectasis or consolidation in both lower lobes. Multiple groundglass opacities are seen throughout the lungs with multiple peripheral airspace opacities including a 5.1 x 2.8 cm airspace opacity in the left lower lobe, 3.4 cm airspace opacity in the lingula, 4.8 x 4.7 cm airspace opacity right middle lobe containing some cavitation, 6.6 x 2.9 cm airspace opacity in the right lower lobe inferiorly and a 4.2 x 3.1 cm opacity in the left lower lobe medially with some central cavitation. Other airspace opacities are noted. The abdomen and pelvis are limited by lack of contrast. The liver, spleen, pancreas, adrenal glands and kidneys are unremarkable. The gallbladder is sludge or stone filled. No biliary dilatation is seen. There are no dilated loops of bowel seen to suggest obstruction. Significant colonic stool is seen. No free fluid or free air is seen. There is no suspicious adenopathy. The aorta is normal in caliber. Atherosclerosis is identified. Clips are seen in the groins with areas of subcutaneous stranding and small lymph nodes. Diffuse anasarca is present. Bone windows demonstrate degenerative changes. IMPRESSION: 1. Multiple support lines and tubes as detailed above. 2. Multifocal airspace opacities throughout both lung javier including some areas of cavitation. Septic emboli cannot would be high in the differential. Pulmonary embolism would also be possible. 3. Small right-sided pleural effusion and small loculated left-sided pleural effusion with a left-sided chest tube in place. 4. Study limited by lack of contrast. 5. Diffuse anasarca. A verbal report was given to the patient's nurse, David at the time of dictation. He was instructed to inform the physician. Signed: Jaya Sandra MD Report Verified Date/Time:01/04/2018 23:07:55 Reading Location: [address] Consult Reading Room Procedure Note Interface, External Ris In - 01/04/2018 11:10 PM CDT FINAL REPORT CT scan of the chest, abdomen and pelvis. CLINICAL HISTORY: Leukocytosis, source of infection. Patient has renal failure. COMPARISON STUDY: Chest x-ray and abdominal x-ray dated January 04, 2018 and ultrasound of the abdomen dated January 04, 2018. TECHNIQUE: Contiguous helical slices were acquired through the chest, abdomen and pelvis without the administration of oral or intravenous contrast. This exam was performed according to our department dose optimization program which includes automated exposure control, adjustment of the mA and/or kV according to the patient's size and/or use of iterative reconstruction technique. FINDINGS: The mediastinum demonstrates a left-sided jugular line and right-sided PICC line place. There is a left-sided chest tube identified. Trace pericardial fluid is seen. No suspicious mediastinum masses or adenopathy are seen. An endotracheal tube and feeding tube are noted. There is a small loculated left-sided pleural effusion and a small right-sided pleural effusion. The tracheobronchial tree is clear with no endobronchial lesions. The pulmonary parenchyma demonstrates atelectasis or consolidation in both lower lobes. Multiple groundglass opacities are seen throughout the lungs with multiple peripheral airspace opacities including a 5.1 x 2.8 cm airspace opacity in the left lower lobe, 3.4 cm airspace opacity in the lingula, 4.8 x 4.7 cm airspace opacity right middle lobe containing some cavitation, 6.6 x 2.9 cm airspace opacity in the right lower lobe inferiorly and a 4.2 x 3.1 cm opacity in the left lower lobe medially with some central cavitation. Other airspace opacities are noted. The abdomen and pelvis are limited by lack of contrast. The liver, spleen, pancreas, adrenal glands and kidneys are unremarkable. The gallbladder is sludge or stone filled. No biliary dilatation is seen. There are no dilated loops of bowel seen to suggest obstruction. Significant colonic stool is seen. No free fluid or free air is seen. There is no suspicious adenopathy. The aorta is normal in caliber. Atherosclerosis is identified. Clips are seen in the groins with areas of subcutaneous stranding and small lymph nodes. Diffuse anasarca is present. Bone windows demonstrate degenerative changes. IMPRESSION: 1. Multiple support lines and tubes as detailed above. 2. Multifocal airspace opacities throughout both lung javier including some areas of cavitation. Septic emboli cannot would be high in the differential. Pulmonary embolism would also be possible. 3. Small right-sided pleural effusion and small loculated left-sided pleural effusion with a left-sided chest tube in place. 4. Study limited by lack of contrast. 5. Diffuse anasarca. A verbal report was given to the patient's nurse, David at the time of dictation. He was instructed to inform the physician. Signed: Jaya Sandra MD Report Verified Date/Time: 01/04/2018 23:07:55 Reading Location: [facility] [id number] Consult Reading Room abdomen/pelvis without iv contrast (01/04/2018 10:04 PM) Specimen Performing Laboratory [employer] FINAL REPORT CT scan of the chest, abdomen and pelvis. CLINICAL HISTORY: Leukocytosis, source of infection. Patient has renal failure. COMPARISON STUDY: Chest x-ray and abdominal x-ray dated January 04, 2018 and ultrasound of the abdomen dated January 04, 2018. TECHNIQUE: Contiguous helical slices were acquired through the chest, abdomen and pelvis without the administration of oral or intravenous contrast. This exam was performed according to our department dose optimization program which includes automated exposure control, adjustment of the mA and/or kV according to the patient's size and/or use of iterative reconstruction technique. FINDINGS: The mediastinum demonstrates a left-sided jugular line and right-sided PICC line place. There is a left-sided chest tube identified. Trace pericardial fluid is seen. No suspicious mediastinum masses or adenopathy are seen. An endotracheal tube and feeding tube are noted. There is a small loculated left-sided pleural effusion and a small right-sided pleural effusion. The tracheobronchial tree is clear with no endobronchial lesions. The pulmonary parenchyma demonstrates atelectasis or consolidation in both lower lobes. Multiple groundglass opacities are seen throughout the lungs with multiple peripheral airspace opacities including a 5.1 x 2.8 cm airspace opacity in the left lower lobe, 3.4 cm airspace opacity in the lingula, 4.8 x 4.7 cm airspace opacity right middle lobe containing some cavitation, 6.6 x 2.9 cm airspace opacity in the right lower lobe inferiorly and a 4.2 x 3.1 cm opacity in the left lower lobe medially with some central cavitation. Other airspace opacities are noted. The abdomen and pelvis are limited by lack of contrast. The liver, spleen, pancreas, adrenal glands and kidneys are unremarkable. The gallbladder is sludge or stone filled. No biliary dilatation is seen. There are no dilated loops of bowel seen to suggest obstruction. Significant colonic stool is seen. No free fluid or free air is seen. There is no suspicious adenopathy. The aorta is normal in caliber. Atherosclerosis is identified. Clips are seen in the groins with areas of subcutaneous stranding and small lymph nodes. Diffuse anasarca is present. Bone windows demonstrate degenerative changes. IMPRESSION: 1. Multiple support lines and tubes as detailed above. 2. Multifocal airspace opacities throughout both lung javier including some areas of cavitation. Septic emboli cannot would be high in the differential. Pulmonary embolism would also be possible. 3. Small right-sided pleural effusion and small loculated left-sided pleural effusion with a left-sided chest tube in place. 4. Study limited by lack of contrast. 5. Diffuse anasarca. A verbal report was given to the patient's nurse, David at the time of dictation. He was instructed to inform the physician. Signed: Jaya Sandra MD Report Verified Date/Time:01/04/2018 23:07:55 Reading Location: [facility] C013 Consult Reading Room Procedure Note Interface, External Ris In - 01/04/2018 11:10 PM CDT FINAL REPORT CT scan of the chest, abdomen and pelvis. CLINICAL HISTORY: Leukocytosis, source of infection. Patient has renal failure. COMPARISON STUDY: Chest x-ray and abdominal x-ray dated January 04, 2018 and ultrasound of the abdomen dated January 04, 2018. TECHNIQUE: Contiguous helical slices were acquired through the chest, abdomen and pelvis without the administration of oral or intravenous contrast. This exam was performed according to our department dose optimization program which includes automated exposure control, adjustment of the mA and/or kV according to the patient's size and/or use of iterative reconstruction technique. FINDINGS: The mediastinum demonstrates a left-sided jugular line and right-sided PICC line place. There is a left-sided chest tube identified. Trace pericardial fluid is seen. No suspicious mediastinum masses or adenopathy are seen. An endotracheal tube and feeding tube are noted. There is a small loculated left-sided pleural effusion and a small right-sided pleural effusion. The tracheobronchial tree is clear with no endobronchial lesions. The pulmonary parenchyma demonstrates atelectasis or consolidation in both lower lobes. Multiple groundglass opacities are seen throughout the lungs with multiple peripheral airspace opacities including a 5.1 x 2.8 cm airspace opacity in the left lower lobe, 3.4 cm airspace opacity in the lingula, 4.8 x 4.7 cm airspace opacity right middle lobe containing some cavitation, 6.6 x 2.9 cm airspace opacity in the right lower lobe inferiorly and a 4.2 x 3.1 cm opacity in the left lower lobe medially with some central cavitation. Other airspace opacities are noted. The abdomen and pelvis are limited by lack of contrast. The liver, spleen, pancreas, adrenal glands and kidneys are unremarkable. The gallbladder is sludge or stone filled. No biliary dilatation is seen. There are no dilated loops of bowel seen to suggest obstruction. Significant colonic stool is seen. No free fluid or free air is seen. There is no suspicious adenopathy. The aorta is normal in caliber. Atherosclerosis is identified. Clips are seen in the groins with areas of subcutaneous stranding and small lymph nodes. Diffuse anasarca is present. Bone windows demonstrate degenerative changes. IMPRESSION: 1. Multiple support lines and tubes as detailed above. 2. Multifocal airspace opacities throughout both lung javier including some areas of cavitation. Septic emboli cannot would be high in the differential. Pulmonary embolism would also be possible. 3. Small right-sided pleural effusion and small loculated left-sided pleural effusion with a left-sided chest tube in place. 4. Study limited by lack of contrast. 5. Diffuse anasarca. A verbal report was given to the patient's nurse, David at the time of dictation. He was instructed to inform the physician. Signed: Jaya Sandra MD Report Verified Date/Time: 01/04/2018 23:07:55 Reading Location: [facility] [id number] Consult Reading Room pH, arterial (01/04/2018 8:18 PM)Only the most recent of9 resultswithin the time period is included. Component Value Ref Range pH, Arterial 7.35 7.35 - 7.45 Specimen Performing Laboratory Blood, Arterial [facility] [address] [address] [place] hepatobiliary (HIDA) scan (01/04/2018 3:52 PM) Specimen Performing Laboratory [employer] Narrative FINAL REPORT PROCEDURE: HEPATOBILIARY SCAN CPT CODE: [id number] INDICATION:Fever, abnormal gallbladder ultrasound PROTOCOL: 5.2 mCi of Tc-99m mebrofenin was injected intravenously. Images of the upper abdomen were obtained for approximately 70 minutes after tracer injection. FINDINGS:Initial tracer uptake into the liver is uniform. Subsequent tracer clearance from the liver is moderately delayed. There is good visualization of the extrahepatic biliary duct and the gallbladder, and the tracer appears appropriately in the small bowel. IMPRESSION: 1. Diffuse hepatocellular dysfunction. 2. There is normal gallbladder filling and no evidence of acute cholecystitis. Signed: Yeimy Barker MD Report Verified Date/Time:01/04/2018 16:08:17 Reading Location: [address] Reading Room Procedure Note Interface, External Ris In - 01/04/2018 4:10 PM CDT FINAL REPORT PROCEDURE: HEPATOBILIARY SCAN CPT CODE: [id number] INDICATION: Fever, abnormal gallbladder ultrasound PROTOCOL: 5.2 mCi of Tc-99m mebrofenin was injected intravenously. Images of the upper abdomen were obtained for approximately 70 minutes after tracer injection. FINDINGS: Initial tracer uptake into the liver is uniform. Subsequent tracer clearance from the liver is moderately delayed. There is good visualization of the extrahepatic biliary duct and the gallbladder, and the tracer appears appropriately in the small bowel. IMPRESSION: 1. Diffuse hepatocellular dysfunction. 2. There is normal gallbladder filling and no evidence of acute cholecystitis. Signed: Yeimy Barker MD Report Verified Date/Time: 01/04/2018 16:08:17 Reading Location: [address] [employer] [facility] Reading Room Sputum Culture + Gram Stain (01/04/2018 6:54 AM)Only the most recent of3 resultswithin the time period is included. Component Value Ref Range Result 3+ Acinetobacter baumannii complex (A) Gram Stain Result 4+ WBCs Gram Stain Result 5-10 epithelial cells Gram Stain Result <1+ gram negative rods Gram Stain Result <1+ gram positive rods Gram Stain Result <1+ gram positive cocci in pairs Gram Stain Result <1+ yeast Specimen Performing Laboratory Sputum - Suctioned [address] [address] Narrative 2+ Normal respiratory сергей present Organism Antibiotic Method Susceptibility Acinetobacter baumannii Amikacin <=8: Susceptible complex Acinetobacter baumannii Ampicillin + Sulbactam 16: Resistant complex Acinetobacter baumannii Cefepime <=4: Susceptible complex Acinetobacter baumannii Ceftazidime 2: Susceptible complex Acinetobacter baumannii Ciprofloxacin <=0.5: Susceptible complex Acinetobacter baumannii Gentamicin <=2: Susceptible complex Acinetobacter baumannii Imipenem <=0.5: Susceptible complex Acinetobacter baumannii Levofloxacin <=1: Susceptible complex Acinetobacter baumannii Meropenem <=0.5: Susceptible complex Acinetobacter baumannii Minocycline <=1: Susceptible complex Acinetobacter baumannii Piperacillin <=16: Susceptible complex Acinetobacter baumannii Piperacillin + Tazobactam <=8: Susceptible complex Acinetobacter baumannii Tetracycline <=4: Susceptible complex Acinetobacter baumannii Tobramycin <=2: Susceptible complex Acinetobacter baumannii Trimethoprim + Sulfamethoxazole <=40: Susceptible complex Venous doppler legs bilateral (01/04/2018 4:06 AM) Component Value Ref Range Ejection Fraction Specimen Performing Laboratory [facility] ECHO HEARTLAB MKCKESSON CPACS Impressions Right Impression 1. Limited Exam: The common femoral and proximal great saphenous veins are not visualized due to incision/carlene. 2. There is no deep venous obstruction in the profunda femoral, femoral, popliteal, posterior tibial or peroneal veins where visualized. 3. There is no superficial venous obstruction in the great saphenous vein where visualized. Left Impression 1. Limited Exam: The common femoral and proximal great saphenous veins are not visualized due to incision/carlene. 2. There is no deep venous obstruction in the profunda femoral, femoral, popliteal, posterior tibial or peroneal veins where visualized. 3. There is no superficial venous obstruction in the great saphenous vein where visualized. Conclusions Summary Venous duplex imaging and compression of the bilateral lower extremities were performed. The exam was limited and the veins were technically difficult to visualize due to incisions/carlene, limited patient positioning and patient body habitus. The bilateral venous systems were patent and compressible with no evidence of thrombus where visualized. The venous Doppler waveforms were phasic with respiration . Signature Velocities are measured in cm/s ; Diameters are measured in cm Narrative [facility] - Lower Extremities DVT Study Demographics Patient Name NAI,Date of Study 01/04/2018 JAYCEE [id number] Age 47 Visit Number [id number] Gender Female Accession Number [id number] Date of 1970 Ezio Marinelli Room Number 7101 PhysicianBrabianca SonographerYogesh Hargrove InterpretingJ. Abraham Rubin MD, Physician GERRY Procedure Type of Study: Veins: Lower Extremities DVT Study, VENOUS DOPPLER LEG, BILATERAL. Indications for Study:DVT and Swelling. Patient Status:LUPIS. Study Location:Portable. Technical Quality:Technically Difficult. Risk Factors History of Disease + +----+ + !Diagnosis!Date!Comments ! + +----+ + !History/Risk !!Immobilization, Recent ECMO, Obesity, Multiple ! !Factors: !!Invasive Lines, Intubated, Septic Shock, Left IJ ! ! !!Dialysis Catheter ! + +----+ + Procedure Note Interface, External Ris In - 01/04/2018 10:01 AM CDT [facility] - Lower Extremities DVT Study Demographics Patient Name NAI, Date of Study 01/04/2018 JAYCEE Age 47 Visit Number [id number] Gender Female Accession Number [id number] Date of 1970 Referring Clement Marinelli Room Number 7101 Physician Shaenka Purchase Request Editor Yogesh Hargrove Interpreting Steph Rubin MD, Physician GERRY Procedure Type of Study: Veins: Lower Extremities DVT Study, VENOUS DOPPLER LEG, BILATERAL. Indications for Study:DVT and Swelling. Patient Status:LUPIS. Study Location:Portable. Technical Quality:Technically Difficult. Risk Factors History of Disease + +----+ + !Diagnosis !Date!Comments ! + +----+ + !History/Risk ! !Immobilization, Recent ECMO, Obesity, Multiple ! !Factors: ! !Invasive Lines, Intubated, Septic Shock, Left IJ ! ! ! !Dialysis Catheter ! + +----+ + Impressions Right Impression 1. Limited Exam: The common femoral and proximal great saphenous veins are not visualized due to incision/carlene. 2. There is no deep venous obstruction in the profunda femoral, femoral, popliteal, posterior tibial or peroneal veins where visualized. 3. There is no superficial venous obstruction in the great saphenous vein where visualized. Left Impression 1. Limited Exam: The common femoral and proximal great saphenous veins are not visualized due to incision/carlene. 2. There is no deep venous obstruction in the profunda femoral, femoral, popliteal, posterior tibial or peroneal veins where visualized. 3. There is no superficial venous obstruction in the great saphenous vein where visualized. Conclusions Summary Venous duplex imaging and compression of the bilateral lower extremities were performed. The exam was limited and the veins were technically difficult to visualize due to incisions/carlene, limited patient positioning and patient body habitus. The bilateral venous systems were patent and compressible with no evidence of thrombus where visualized. The venous Doppler waveforms were phasic with respiration . Signature Velocities are measured in cm/s ; Diameters are measured in cm Vitamin B12 and Folate (01/04/2018 3:42 AM) Component Value Ref Range Vitamin B12 >2000 (H) 213 - 816 pg/mL Folate 6.3 (L) >=7.0 ng/mL Specimen Performing Laboratory Blood - Line, Arterial [address] [address] Iron, TIBC, % sat. (without ferritin) (01/04/2018 3:42 AM) Component Value Ref Range Iron 26 (L) 40 - 160 ug/dL TIBC 255 250 - 450 ug/dL Iron % Saturation 10 (L) 20 - 55 % Specimen Performing Laboratory Blood - Line, Arterial [address] [address] Reticulocyte count (01/04/2018 3:42 AM) Component Value Ref Range % Retic 1.3 0.5 - 1.7 % Specimen Performing Laboratory Blood - Line, [address] [address] Ferritin (01/04/2018 3:42 AM) Component Value Ref Range Ferritin 1296 (H) 5 - 275 ng/mL Specimen Performing Laboratory Blood - Line, [address] [address] Prothrombin time/INR (01/04/2018 3:40 AM)Only the most recent of11 resultswithin the time period is included. Component Value Ref Range Protime 17.4 (H) 11.7 - 14.7 seconds INR 1.4 <=5.9 Specimen Performing Laboratory Blood - Line, [address] [address] Narrative RECOMMENDED COUMADIN/WARFARIN INR THERAPY RANGES STANDARD DOSE: 2.0 - 3.0 Includes: PROPHYLAXIS for venous thrombosis, systemic embolization; TREATMENT for venous thrombosis and/or pulmonary embolus. HIGH RISK: Target INR is 2.5-3.5 for patients with mechanical heart valves. Fibrinogen (01/04/2018 3:40 AM)Only the most recent of9 resultswithin the time period is included. Component Value Ref Range Fibrinogen 612 (H) 225 - 434 mg/dl Specimen Performing Laboratory Blood - Line, [address] [address] US abdomen complete (01/04/2018 2:50 AM) Specimen Performing Laboratory [employer] Narrative FINAL REPORT Ultrasound of the Abdomen, complete Clinical History:Leukocytosis and septic shock. Clinical suspicion for acalculus cholecystitis. Discussion: Sonographic evaluation of the abdomen was performed. There is no prior study for direct comparison.. Liver: 21.9 cm in length at the right midclavicular line. Increased echogenicity.No lesion is identified by ultrasound.Main portal vein diameter 1.05 cm and demonstrates hepatopetal flow. Biliary tree:Common duct 5 mm.No intrahepatic biliary ductal dilatation. Gallbladder: Physiologic distended containing sludge. Trace pericholecystic fluid. No wall thickening or sonographic Tolentino's sign.. Pancreas: Partially visualized, unremarkable. Ascites:None seen Spleen:Normal size and echogenicity measuring 11.6 x 5.1 x 5.5 cm. Kidneys: Right kidney 12.3 x 6.8 x 6.1 cm with cortical thickness of 1.6 cm.Left kidney is partially obscured by bowel gas measuring 12.8 x 6.9 x 6.9 cm with cortical thickness of 1.9 cm.Normal cortical echogenicity. No shadowing calculus, no hydronephrosis. IVC/Aorta:Segments partially seen.Unremarkable. Impression: Gallbladder sludge and trace pericholecystic fluid. Findings are equivocal for acute cholecystitis. A HIDA scan may be performed if clinical suspicion for acute cholecystitis persists. Hepatomegaly. Echogenic liver which are basilar parenchymal disease such as fatty infiltration. No biliary ductal dilatation. Signed: Shad Joseph MD Report Verified Date/Time:01/04/2018 05:25:20 Reading Location: [facility] C013 Transitional Reading Room Procedure Note Interface, External Ris In - 01/04/2018 5:27 AM CDT FINAL REPORT Ultrasound of the Abdomen, complete Clinical History: Leukocytosis and septic shock. Clinical suspicion for acalculus cholecystitis. Discussion: Sonographic evaluation of the abdomen was performed. There is no prior study for direct comparison.. Liver: 21.9 cm in length at the right midclavicular line. Increased echogenicity. No lesion is identified by ultrasound. Main portal vein diameter 1.05 cm and demonstrates hepatopetal flow. Biliary tree: Common duct 5 mm. No intrahepatic biliary ductal dilatation. Gallbladder: Physiologic distended containing sludge. Trace pericholecystic fluid. No wall thickening or sonographic Tolentino's sign.. Pancreas: Partially visualized, unremarkable. Ascites: None seen Spleen: Normal size and echogenicity measuring 11.6 x 5.1 x 5.5 cm. Kidneys: Right kidney 12.3 x 6.8 x 6.1 cm with cortical thickness of 1.6 cm. Left kidney is partially obscured by bowel gas measuring 12.8 x 6.9 x 6.9 cm with cortical thickness of 1.9 cm. Normal cortical echogenicity. No shadowing calculus, no hydronephrosis. IVC/Aorta: Segments partially seen. Unremarkable. Impression: Gallbladder sludge and trace pericholecystic fluid. Findings are equivocal for acute cholecystitis. A HIDA scan may be performed if clinical suspicion for acute cholecystitis persists. Hepatomegaly. Echogenic liver which are basilar parenchymal disease such as fatty infiltration. No biliary ductal dilatation. Signed: Shad Joseph MD Report Verified Date/Time: 01/04/2018 05:25:20 Reading Location: [address] Transitional Reading Room Blood culture (01/03/2018 11:57 PM)Only the most recent of7 resultswithin the time period is included. Component Value Ref Range Result No growth in 5 days Specimen Performing Laboratory Blood [place] [address] CARDIAC CATH REPORT - SCAN (01/03/2018 4:20 PM)Only the most recent of2 resultswithin the time period is included.Peripheral Blood Smear - Path Review ( 01/03/2018 12:10 PM) Component Value Ref Range WBC Morphology Toxic Granulation Left Shift Pathologist Review Cell counts confirmed. Pathologist: Brook Dunaway M.D. (electronic signature) Specimen Performing Laboratory Blood [address] [address] Heparin Assay - Unfractionated (01/03/2018 5:16 AM)Only the most recent of7 resultswithin the time period is included. Component Value Ref Range Anti 10A-Unfractionated Heparin <0.10 (L) 0.30 - 0.70 u/ml Specimen Performing Laboratory Blood [address] [address] Narrative Recommendations for Monitoring Unfractionated Heparin Therapeutic Range: 0.3-0.7 u/mL with continuous IV infusion Thromboelastograph (TEG) (01/03/2018 5:16 AM)Only the most recent of17 resultswithin the time period is included. Component Value Ref Range TEG Activated Clotting Time 5.4 4.0 - 7.0 minutes TEG Fibrinogen Activity 73.6 (H) 61.0 - 73.0 degrees TEG Platelet Aggregation 66.5 (H) 55.0 - 65.0 MM TEG Fibrinolysis 13.4 (H) 0.0 - 5.0 % TEG-H Activated Clotting Time 5.8 4.0 - 7.0 minutes TEG-H Fibrinogen Activity 73.1 (H) 61.0 - 73.0 degrees TEG-H Platelet Aggregation 65.6 (H) 55.0 - 65.0 MM TEG-H Fibrinolysis 0.0 0.0 - 5.0 % Specimen Performing Laboratory Blood [address] [address] Antithrombin III (01/03/2018 5:16 AM)Only the most recent of9 resultswithin the time period is included. Component Value Ref Range Antithrombin III 85.0 80.0 - 120.0 % Specimen Performing Laboratory Blood [address] [address] HIV-1 Antigen with HIV-1/2 Antibody (01/02/2018 8:01 AM) Component Value Ref Range HIV-1 Antigen with HIV 1&2 Antibody Nonreactive Nonreactive Specimen Performing Laboratory Blood [address] [address] [address] brain without IV contrast portable (01/01/2018 1:25 PM)Only the most recent of2 resultswithin the time period is included. Specimen Performing Laboratory [employer] Narrative FINAL REPORT CT head without contrast 01/01/2018 12:51 PM CLINICAL HISTORY: ECMO protocol TECHNIQUE: Contiguous axial images through the head without contrast were obtained utilizing the portable CT unit. This examination was performed according to our departmental dose optimization program, which includes automated exposure control, adjustment of the mA and/or kV according to patient size, and/or use of iterated reconstruction technique. COMPARISON: 12/29/2017 FINDINGS: There is no intracranial hemorrhage, mass, hydrocephalus, extra-axial collection, or midline shift. There is mild microvascular ischemia in the supratentorial white matter. There is generalized parenchymal volume loss. There is multifocal sinusitis with trace bilateral mastoid effusions. The skull is unremarkable. IMPRESSION: No intracranial hemorrhage or mass effect. Chronic appearing microvascular and involutional changes. Paranasal sinus disease with bilateral mastoid effusions. Signed: Saturnino Powers MD Report Verified Date/Time:01/01/2018 12:53:19 Reading Location: [facility] [id number] Neuro Reading Room Procedure Note Interface, External Ris In - 01/01/2018 1:27 PM CDT FINAL REPORT CT head without contrast 01/01/2018 12:51 PM CLINICAL HISTORY: ECMO protocol TECHNIQUE: Contiguous axial images through the head without contrast were obtained utilizing the portable CT unit. This examination was performed according to our departmental dose optimization program, which includes automated exposure control, adjustment of the mA and/or kV according to patient size, and/or use of iterated reconstruction technique. COMPARISON: 12/29/2017 FINDINGS: There is no intracranial hemorrhage, mass, hydrocephalus, extra-axial collection, or midline shift. There is mild microvascular ischemia in the supratentorial white matter. There is generalized parenchymal volume loss. There is multifocal sinusitis with trace bilateral mastoid effusions. The skull is unremarkable. IMPRESSION: No intracranial hemorrhage or mass effect. Chronic appearing microvascular and involutional changes. Paranasal sinus disease with bilateral mastoid effusions. Signed: Saturnino Powers MD Report Verified Date/Time: 01/01/2018 12:53:19 Reading Location: [address] Neuro Reading Room Prepare Leuko-Red PLT (12/31/2017 11:54 PM) Component Value Ref Range Unit ABO A Pos UNIT NUMBER [id number] Status TRANSFUSED Blood Bank Product PLATELETS PRODUCT CODE [id number] Specimen Performing Laboratory Blood SAFETRACE TX BUN (12/31/2017 4:43 AM)Only the most recent of3 resultswithin the time period is included. Component Value Ref Range BUN 26 (H) 7 - 21 mg/dL Specimen Performing Laboratory Blood [address] [address] Glucose (12/31/2017 4:43 AM)Only the most recent of4 resultswithin the time period is included. Component Value Ref Range Glucose 132 (H) 70 - 105 mg/dL Specimen Performing Laboratory Blood [address] [address] Creatinine, serum (12/31/2017 4:43 AM)Only the most recent of3 resultswithin the time period is included. Component Value Ref Range Creatinine 1.65 (H) 0.57 - 1.25 mg/dL EGFR Comment: INSUFFICIENT CLINICAL DATA TO CALCULATE mL/min/1.73 sq m ESTIMATED GFR. Specimen Performing Laboratory Blood [address] [address] Electrolytes (12/31/2017 4:43 AM)Only the most recent of3 resultswithin the time period is included. Component Value Ref Range Sodium 138 136 - 145 meq/L Potassium 5.1 3.5 - 5.1 meq/L Chloride 105 98 - 107 meq/L CO2 23 22 - 29 meq/L Specimen Performing Laboratory Blood [address] [address] Haptoglobin (12/30/2017 4:38 PM) Component Value Ref Range Haptoglobin 350 (H) 14 - 258 mg/dL Specimen Performing Laboratory Blood [address] [address] Transfuse Leuko-Red PLT (12/30/2017 8:44 AM)Only the most recent of2 resultswithin the time period is included.Heparin antibody (12/30/2017 8:03 AM) Component Value Ref Range Heparin Ab Negative Negative Heparin Antibody Optical Density 0.115 <0.400 4T Total Score 3 Specimen Performing Laboratory [address] [address] Narrative Probability of HIT based on scoring system: 6-8=High probability; 4-5=intermediate probability; 0-3=low probability EEG monitoring with video recording each 24 hours (12/30/2017 6:00 AM) Specimen Performing Laboratory [facility] Narrative Date(s) of EE/21- DATE OF REPORT: 12/30/2017 ACC: [id number] EEG Number: [id number] Test Location: Inpatient ICU Start time: 13:11 Stop time: 10:23 ICD-10: R 56.9 CPT Code: 32537 HISTORY: ECMO protocol MEDICATIONS THAT COULD AFFECT EEG: Valproic acid, Fentanyl TECHNICAL SUMMARY: This is a digital video-EEG recorded with 32 input channels reviewed with bipolar and referential montages using the modified combinatorial system nomenclature. DESCRIPTION OF RECORD: During the stimulated state, the frequency spectrum consists primarily of diffuse, moderate amplitude 1.5-3 Hz delta, 4-6 Hz theta, which are further admixed with much diffuse beta. Reactivity is evident by emerging of 4-6Hz theta activity on physical stimulation. Neither an occipital dominant rhythm, nor an organized frequency amplitude gradient is well demonstrable. Sleep structures were not seen. SIGNIFICANT VIDEO EVENTS: None SIGNIFICANT ELECTROCARDIOGRAM EVENTS: None HV: Hyperventilation was not performed. IMPRESSION: Abnormal Coma EEG 1. Moderate diffuse slowing CLINICAL CORRELATION: Diffuse slowing seen in this recording support an underlying moderate encephalopathy. An EEG without epileptiform discharges does not exclude the possibility of epilepsy. Compared to the previous recording, there is no significant change. Sonny Smith MD Attending Neurophysiologist [facility] Procedure Note Interface, External Ris In - 12/30/2017 12:55 PM CDT Date(s) of EE DATE OF REPORT: 12/30/2017 ACC: [id number] EEG Number: [id number] Test Location: Inpatient ICU Start time: 13:11 Stop time: 10:23 ICD-10: R 56.9 CPT Code: 22740 HISTORY: ECMO protocol MEDICATIONS THAT COULD AFFECT EEG: Valproic acid, Fentanyl TECHNICAL SUMMARY: This is a digital video-EEG recorded with 32 input channels reviewed with bipolar and referential montages using the modified combinatorial system nomenclature. DESCRIPTION OF RECORD: During the stimulated state, the frequency spectrum consists primarily of diffuse, moderate amplitude 1.5-3 Hz delta, 4-6 Hz theta, which are further admixed with much diffuse beta. Reactivity is evident by emerging of 4-6Hz theta activity on physical stimulation. Neither an occipital dominant rhythm, nor an organized frequency amplitude gradient is well demonstrable. Sleep structures were not seen. SIGNIFICANT VIDEO EVENTS: None SIGNIFICANT ELECTROCARDIOGRAM EVENTS: None HV: Hyperventilation was not performed. IMPRESSION: Abnormal Coma EEG 1. Moderate diffuse slowing CLINICAL CORRELATION: Diffuse slowing seen in this recording support an underlying moderate encephalopathy. An EEG without epileptiform discharges does not exclude the possibility of epilepsy. Compared to the previous recording, there is no significant change. Sonny Smith MD Attending Neurophysiologist [facility] Fibrin soluble monomer (12/29/2017 6:06 PM)Only the most recent of2 resultswithin the time period is included. Component Value Ref Range Fibrin Soluble Monomer Negative Specimen Performing Laboratory Blood [address] [address] Platelet count (12/29/2017 3:57 PM) Component Value Ref Range Platelets 60 (L) 150 - 450 K/CU MM Specimen Performing Laboratory Blood [address] [address] EEG AWAKE AND DROWSY (12/29/2017 1:11 PM) Specimen Performing Laboratory [facility] Narrative Date(s) of EE12/29/2017 DATE OF REPORT: 12/29/2017 ACC: [id number] EEG Number: [id number] Test Location: Inpatient ICU Start time: 12:51 Stop time: 13:11 ICD-10: R 56.9 CPT Code: 28482 HISTORY: ECMO protocol MEDICATIONS THAT COULD AFFECT EEG: Valproic acid, Fentanyl TECHNICAL SUMMARY: This is a digital video-EEG recorded with 32 input channels reviewed with bipolar and referential montages using the modified combinatorial system nomenclature. DESCRIPTION OF RECORD: During the stimulated state, the frequency spectrum consists primarily of diffuse, moderate amplitude 1.5-3 Hz delta, 4-6 Hz theta, which are further admixed with much diffuse beta. Reactivity is evident by emerging of 4-6H theta activity on physical stimulation. Neither an occipital dominant rhythm, nor an organized frequency amplitude gradient is well demonstrable. Sleep structures were not seen. SIGNIFICANT VIDEO EVENTS: None SIGNIFICANT ELECTROCARDIOGRAM EVENTS: None HV: Hyperventilation was not performed. PHOTIC STIMULATION: Photic stimulation was done from 1-29 Hz; no photic driving was seen; photoparoxysmal responses were absent. IMPRESSION: Abnormal Coma EEG 1. Moderate diffuse slowing CLINICAL CORRELATION: Diffuse slowing seen in this recording support an underlying moderate encephalopathy. An EEG without epileptiform discharges does not exclude the possibility of epilepsy. Clara Perez MD Neurophysiology Fellow, PGY5 Sonny Smith MD Attending Neurophysiologist [facility] Procedure Note Interface, External Ris In - 12/29/2017 3:37 PM CDT Date(s) of EE12/29/2017 DATE OF REPORT: 12/29/2017 ACC: [id number] EEG Number: [id number] Test Location: Inpatient ICU Start time: 12:51 Stop time: 13:11 ICD-10: R 56.9 CPT Code: 16420 HISTORY: ECMO protocol MEDICATIONS THAT COULD AFFECT EEG: Valproic acid, Fentanyl TECHNICAL SUMMARY: This is a digital video-EEG recorded with 32 input channels reviewed with bipolar and referential montages using the modified combinatorial system nomenclature. DESCRIPTION OF RECORD: During the stimulated state, the frequency spectrum consists primarily of diffuse, moderate amplitude 1.5-3 Hz delta, 4-6 Hz theta, which are further admixed with much diffuse beta. Reactivity is evident by emerging of 4-6H theta activity on physical stimulation. Neither an occipital dominant rhythm, nor an organized frequency amplitude gradient is well demonstrable. Sleep structures were not seen. SIGNIFICANT VIDEO EVENTS: None SIGNIFICANT ELECTROCARDIOGRAM EVENTS: None HV: Hyperventilation was not performed. PHOTIC STIMULATION: Photic stimulation was done from 1-29 Hz; no photic driving was seen; photoparoxysmal responses were absent. IMPRESSION: Abnormal Coma EEG 1. Moderate diffuse slowing CLINICAL CORRELATION: Diffuse slowing seen in this recording support an underlying moderate encephalopathy. An EEG without epileptiform discharges does not exclude the possibility of epilepsy. Clara Perez MD Neurophysiology Fellow, PGY5 Sonny Smith MD Attending Neurophysiologist [facility] pH, body fluid (12/29/2017 10:31 AM) Component Value Ref Range pH, Body Fluid 7.26 Specimen Performing Laboratory Body Fluid - Pleural, Left [address] [address] Glucose, body fluid (12/29/2017 10:31 AM) Component Value Ref Range Glucose, Body Fluid <5 (L) 70 - 110 mg/dL Specimen Performing Laboratory Body Fluid - Pleural, Left [address] [address] Narrative Absence of reference range indicates that normals have not been defined. Assay performance has not been validated for this type of specimen. Please use existing specimen Body fluid culture + gram stain (12/29/2017 10:31 AM) Component Value Ref Range Result No growth Gram Stain Result 3+ WBCs Gram Stain Result <1+ gram positive cocci in chains and pairs Specimen Performing Laboratory Body Fluid - Pleural, [address] [address] Narrative Body fluid cell count with differential (12/29/2017 10:31 AM) Component Value Ref Range Appearance Hazy (A) Clear Color Yellow (A) Colorless, Straw RBCs [address] (H) <=1 /cu mm Adjusted WBC Count [address] (H) <=5 /cu mm Lining Cells 0 <=1 /cu mm % Segs 63 % % Lymphs 3 % % Monos 34 % % Eos 0 % % Baso 0 % Container Body Fluid EDTA Tube Specimen Performing Laboratory Body Fluid - Pleural, [address] [address] Protein, body fluid (12/29/2017 10:31 AM) Component Value Ref Range Protein, Fluid 3.4 Light's criteria identifies effusions if one or more are present: Pleural to serum protein ratio of more than 0.5; Pleural to Serum LDH of more than 0.6; Pleural LDH of more than two third of upper serum reference limit g/dL Specimen Performing Laboratory Body Fluid - Pleural, [address] [address] Narrative Absence of reference range indicates that normals have not been defined. Assay performance has not been validated for this type of specimen. Please use existing specimen Lactate dehydrogenase (LDH), body fluid (12/29/2017 10:31 AM) Component Value Ref Range LDH, Fluid 79[address] Light's criteria identifies effusions if one or more are present: Pleural to serum LDH ratio of more than 0.6. Pleural LDH more than two third of upper serum reference limit U/L Specimen Performing Laboratory Body Fluid - Pleural, [address] [address] Narrative Absence of reference range indicates that normals have not been defined. Assay performance has not been validated for this type of specimen. Albumin, body fluid (12/29/2017 10:31 AM) Component Value Ref Range Albumin, Fluid 1.8 gm/dL Specimen Performing Laboratory Body Fluid - Pleural, Left [address] [address] Narrative Reference Range:No Normals Assay performance has not been validated for this type of specimen. TSH/Free T4 If Indicated (12/28/2017 2:39 PM)Only the most recent of2 resultswithin the time period is included. Component Value Ref Range TSH 0.36 0.35 - 4.94 uIU/mL Specimen Performing Laboratory Blood [address] [address] POC ACTIVATED CLOTTING TIME (12/28/2017 1:00 PM) Component Value Ref Range Activated Clotting Time 230Comment: TESTED AT [address] sec [address] Specimen Performing Laboratory Blood [address] [address] Respiratory Panel SLHS (12/28/2017 11:20 AM) Component Value Ref Range Human Metapneumovirus Not detected Not detected, Inconclusive Rhinovirus Not detected Not detected, Inconclusive Influenza A Not detected Not detected, Inconclusive Influenza A subtype H1 Not detected Not detected, Inconclusive Influenza A Subtype H3 Not detected Not detected, Inconclusive Influenza A Subtype H1-2009 Not detected Not detected, Inconclusive Influenza B Not detected Not detected, Inconclusive Respiratory Syncytial Virus Not detected Not detected, Inconclusive Parainfluenza Virus 1 Not detected Not detected, Inconclusive Parainfluenza Virus 2 Not detected Not detected, Inconclusive Parainfluenza virus 3 Not detected Not detected, Inconclusive Parainfluenza Virus 4 Not detected Not detected, Inconclusive Adenovirus Not detected Not detected, Inconclusive Coronavirus 229E Not detected Not detected, Inconclusive Coronavirus HKU1 Not detected Not detected, Inconclusive Coronavirus NL63 Not detected Not detected, Inconclusive Coronavirus OC43 Not detected Not detected, Inconclusive Bordetella Pertussis Not detected Not detected, Inconclusive Chlamydophila Pneumoniae Not detected Not detected, Inconclusive Mycoplasma Pneumoniae Not detected Not detected, Inconclusive Specimen Performing Laboratory Nasopharyngeal - Nasopharyngeal Swab [address] [address] Strep pneumoniae antigen (12/28/2017 11:17 AM) Component Value Ref Range Strep pneumoniae Antigen Presumptive negative for Presumptive negative for pneumococcal pneumonia - see pneumococcal pneumonia - see comment comment, Presumptive negative for pneumococcal meningitis - see comment Specimen Performing Laboratory Urine - Urine, [facility] [address] [place] [address] Narrative Presumptive negative for pneumococcal pneumonia, suggesting no current or recent pneumococcal infection. Infection due to S. pneumoniae cannot be ruled out since the antigen present in the sample may be below the detection limit of the test. Legionella antigen, urine (12/28/2017 11:16 AM) Component Value Ref Range Legionella Urine Antigen Negative - see commentComment: Negative for L. pneumophila serogroup 1 antigen, suggesting no recent or current infection with this serogroup. Legionellosis cannot be ruled out since other serogroups and species may cause disease. Specimen Performing Laboratory Urine - Urine, [address] [address] Urine culture (12/28/2017 11:16 AM)Only the most recent of2 resultswithin the time period is included. Component Value Ref Range Result No growth Specimen Performing Laboratory Urine - Urine, [address] [address] T4, free (12/28/2017 11:16 AM)Only the most recent of2 resultswithin the time period is included. Component Value Ref Range Free T4 0.44 (L) 0.70 - 1.48 ng/dL Specimen Performing Laboratory Blood [address] [address] Urinalysis w/Microscopic + Reflex to Culture (12/28/2017 11:14 AM) Component Value Ref Range Color, UA Yellow Clarity, UA Hazy Specific Byers, UA 1.019 1.001 - 1.035 pH, UA 6.0 5.0 - 8.0 Protein, UA 200 mg/dL (A) Negative Glucose, UA 70 mg/dL (A) Negative Ketones, UA Negative Negative Bilirubin, UA Negative Negative Blood, UA Large (A) Negative Nitrite, UA Negative Negative Leukocytes, UA Small (A) Negative Urobilinogen, UA 0.2 0.2 - 1.0 mg/dL RBC, UA 0 /HPF WBC, UA 10 /HPF Bacteria, UA Occasional Mucus Rare Squam Epithel, UA 1 /HPF Granular Casts, UA 5 /LPF Amorphous Crystals Rare Specimen Source Specimen Performing Laboratory Urine - Urine, [address] [address] BCID (12/28/2017 10:50 AM) Component Value Ref Range Scan Result Specimen Performing Laboratory Blood [facility] [address] [address] Narrative Result comments: Coagulase Negative Staphylococcus Species (CoNS) DETECTED, Methicillin Susceptible First line therapy: cefazolin, nafcillin (nafcillin preferred for Central Nervous System infection) Coagulase Negative Staphylococcus (CoNS) DETECTED mecA NOT DETECTED Other organisms and resistance markers not contained in this PCR panel cannot be excluded and follow-up of traditional culture results is required. This sample was tested at the [facility] Clinical Microbiology Laboratory using the Scyron Blood Culture ID Panel. This test is FDA cleared for in vitro diagnostic use and has been verified and approved by the [facility] Clinical Microbiology laboratory for clinical use. Reference Range: Not Detected ECHO W CONTRAST & DOPPLER (12/28/2017 7:33 AM) Component Value Ref Range Ejection Fraction Specimen Performing Laboratory [facility] ECHO [facility] Narrative Transthoracic Echocardiography Report (TTE) Demographics Patient Name [facility], Date of Study 12/28/2017 JAYCEE [id number] Female Visit Number [id number] Room Number 2C34 Number Date of Birth1970Referring Physician Georgie Gallagher Age47 year(s)Purchase Request Editor Oleg Romero Interpreting Juliane Mann, Physician Procedure Type of Study TTE procedure:2DECHO W/CONTRAST & DOPPLER, 2DECHO W DOPPLER(CW/PW/COLOR) (STAT) Indications:Hypotension or hemodynamic instability. Clinical History HYPOTHYROUDSM RESPIRATORY FAILURE Contrast Medium: Definity. Height: 65 inches Weight: 135.62 kg (299 lbs) BSA: 2.35 m^2 BMI: 49.76 kg/m^2 HR: 110 bpm BP: 113/63 mmHg Summary 1. Mild global hypokinesis. The following segment(s) appear severely hypokinetic: inferolateral wall . LVEF by Mccormack's method of disk assessment is mildly reduced (45-49%) . 2. RV chamber size appears moderately enlarged by limited views . Global RV systolic function is depressed . 3. Estimated peak systolic PA pressure is 35-40 mmHg . Previous Study No prior studies available for comparison. Signature Findings Technical Quality: Technically adequate exam. Left Ventricle LV endocardium is partially visualized with IV ultrasound enhancing agent. The left ventricle is chamber size (by vol index) is normal (female - LVED vol - 29-61ml/m2). No evidence of LV hypertrophy. Mild global hypokinesis. The following segment(s) appear severely hypokinetic: inferolateral wall . Global LV systolic function mildly reduced . LVEF by Mccormack's method of disk assessment is mildly reduced (45-49%) . Estimation of LV systolic function is less reliable in the presence of tachycardia. Degree of diastolic dysfunction (LAP assessment) is inconclusive due to tachycardia . LVOT SV index is severely reduced (16.28 ml/m2) . Left AtriumLA size is normal (16-34 ml/m2) . Right VentricleRV is not well visualized. RV chamber size appears moderately enlarged by limited views . Global RV systolic function is depressed . Right Atrium RA size is normal. Aortic Valve AoV is not well visualized but function appears normal by doppler. Mitral Valve MV is not well visualized but appears normal by doppler parameters. Tricuspid ValveTV is not well visualized. Trace of tricuspid regurgitation. Estimated peak systolic PA pressure is 35-40 mmHg . Peak systolic pressure may be underestimated; partial TR signal. Pulmonic Valve Normal PV structure and function by limited views and Doppler. AortaAortic root size (SInus of Valsalva diameter) is normal . Proximal ascending aorta size is normal . PericardiumNo significant pericardial effusion is visualized. IVC/SVC/PA/PV/PleuralThe estimated RA pressure by IVC dynamics >20mmHg . Chambers/Structures Left Atrium LA Volume: 50.68 ml LA Area: 14.77 cm^ 2 LA Vol. Index: 22 ml/m^2 Left Ventricle LVIDd: 5.43 cm LVIDs: 3.4 cm LV Septum Diastolic: 1.09 cm LV PW Diastolic: 1.1 cm LV FS: 37.4 % LVEDV Mccormack's:80.18 ml LVESV Mccormack's:42.28 mlLVEDVI: 34 ml/ m^2 LVEF Mccormack's: 47.3 %LVESVI: 18 ml/m^2 LVOT Diameter: 2.08 cm Right Atrium RA Vol. (Sngl Plane): 28.27 ml Right Ventricle RV Diast Dim.: 3.64 cm RV Systolic Pressure: 38.53 mmHg TAPSE: 1.41 cm Aorta Ao Root S of Arleth.: 3.02 cmAscending Aorta: 2.86 cm Doppler/Quantitative Measurements Mitral Valve MV Berny. Peak: Tissue Doppler E' Lateral Velocity: 0.04 m/s LVOT Peak Velocity: 0.78 m/s Peak Gradient: 2.41 mmHg Mean Velocity: 0.53 m/s Mean Gradient: 1.33 mmHg LVOT Diameter: 2.08 cmLVOT VTI: 11.27 cm LVOT Area: 3.4 cm^2 LVOT SV:38.28 ml LVOT CO: 4.21 l/min LVOT CI: 1.79 l/min/m^2 RVOT RVOT VTI (PW): 6.74 cm Tricuspid Valve Estimated RAP: 20 mmHg TR Velocity: 2.15 m/s TR Gradient: 18.53 mmHg Pulmonic Valve Estimated PASP: 38.53 mmHg Procedure Note Interface, External Ris In - 12/28/2017 10:36 AM CDT Transthoracic Echocardiography Report (TTE) Demographics Patient Name [facility], Date of Study 12/28/2017 JAYCEE Gender Female Visit Number [id number] Race Unknown Room Number 2C34 Number Date of 1970 Referring Physician Georgie Gallagher Age 47 year(s) Purchase Request Editor Oleg Last Coin Machine Collector Physician MARY BETH Dyson Procedure Type of Study TTE procedure:2DECHO W/CONTRAST & DOPPLER, 2DECHO W DOPPLER(CW/PW/COLOR) (STAT) Indications:Hypotension or hemodynamic instability. Clinical History HYPOTHYROUDSM RESPIRATORY FAILURE Contrast Medium: Definity. Height: 65 inches Weight: 135.62 kg (299 lbs) BSA: 2.35 m^2 BMI: 49.76 kg/m^2 HR: 110 bpm BP: 113/63 mmHg Summary 1. Mild global hypokinesis. The following segment(s) appear severely hypokinetic: inferolateral wall . LVEF by Mccormack's method of disk assessment is mildly reduced (45-49%) . 2. RV chamber size appears moderately enlarged by limited views . Global RV systolic function is depressed . 3. Estimated peak systolic PA pressure is 35-40 mmHg . Previous Study No prior studies available for comparison. Signature Findings Technical Quality: Technically adequate exam. Left Ventricle LV endocardium is partially visualized with IV ultrasound enhancing agent. The left ventricle is chamber size (by vol index) is normal (female - LVED vol - 29-61ml/m2). No evidence of LV hypertrophy. Mild global hypokinesis. The following segment(s) appear severely hypokinetic: inferolateral wall . Global LV systolic function mildly reduced . LVEF by Mccormack's method of disk assessment is mildly reduced (45-49%) . Estimation of LV systolic function is less reliable in the presence of tachycardia. Degree of diastolic dysfunction (LAP assessment) is inconclusive due to tachycardia . LVOT SV index is severely reduced (16.28 ml/m2) . Left Atrium LA size is normal (16-34 ml/m2) . Right Ventricle RV is not well visualized. RV chamber size appears moderately enlarged by limited views . Global RV systolic function is depressed . Right Atrium RA size is normal. Aortic Valve AoV is not well visualized but function appears normal by doppler. Mitral Valve MV is not well visualized but appears normal by doppler parameters. Tricuspid Valve TV is not well visualized. Trace of tricuspid regurgitation. Estimated peak systolic PA pressure is 35-40 mmHg . Peak systolic pressure may be underestimated; partial TR signal. Pulmonic Valve Normal PV structure and function by limited views and Doppler. Aorta Aortic root size (SInus of Valsalva diameter) is normal . Proximal ascending aorta size is normal . Pericardium No significant pericardial effusion is visualized. IVC/SVC/PA/PV/Pleural The estimated RA pressure by IVC dynamics >20mmHg . Chambers/Structures Left Atrium LA Volume: 50.68 ml LA Area: 14.77 cm^2 LA Vol. Index: 22 ml/m^2 Left Ventricle LVIDd: 5.43 cm LVIDs: 3.4 cm LV Septum Diastolic: 1.09 cm LV PW Diastolic: 1.1 cm LV FS: 37.4 % LVEDV Mccormack's:80.18 ml LVESV Mccormack's:42.28 ml LVEDVI: 34 ml/m^2 LVEF Mccormack's: 47.3 % LVESVI: 18 ml/m^2 LVOT Diameter: 2.08 cm Right Atrium RA Vol. (Sngl Plane): 28.27 ml Right Ventricle RV Diast Dim.: 3.64 cm RV Systolic Pressure: 38.53 mmHg TAPSE: 1.41 cm Aorta Ao Root S of Arleth.: 3.02 cm Ascending Aorta: 2.86 cm Doppler/Quantitative Measurements Mitral Valve MV Berny. Peak: Tissue Doppler E' Lateral Velocity: 0.04 m/s LVOT Peak Velocity: 0.78 m/s Peak Gradient: 2.41 mmHg Mean Velocity: 0.53 m/s Mean Gradient: 1.33 mmHg LVOT Diameter: 2.08 cm LVOT VTI: 11.27 cm LVOT Area: 3.4 cm^2 LVOT SV:38.28 ml LVOT CO: 4.21 l/min LVOT CI: 1.79 l/min/m^2 RVOT RVOT VTI (PW): 6.74 cm Tricuspid Valve Estimated RAP: 20 mmHg TR Velocity: 2.15 m/s TR Gradient: 18.53 mmHg Pulmonic Valve Estimated PASP: 38.53 mmHg Toxicology screen, serum (12/28/2017 3:42 AM) Component Value Ref Range DRUG TEST, GENERAL TOXICOLOGY, see note URINE,[facility] Comment: The following compounds were detected: Cotinine (Nicotine Metabolite) Acetaminophen Gabapentin Methamphetamine Lidocaine Citalopram Quetiapine Alprazolam Naproxen Ibuprofen THC-COOH For a list of compounds and limits of detection go to: http://education.clipsync/faq/CAV895 ACETONE ([facility]) None Detected METHANOL([facility]) None Detected Isopropanol([facility]) None Detected ETHANOL None Detected Comment: Volatile Limit of Detection: 5 mg/dL Specimen Performing Laboratory Blood [facility] [address] [place] [address] Narrative Performing Lab [address] [facility], [address] [address] [address] Janee Flaherty MD, PhD Hemoglobin A1c (12/28/2017 3:42 AM) Component Value Ref Range Hemoglobin A1C 6.4 (H) 4.3 - 6.1 % Specimen Performing Laboratory Blood [address] [address] Comprehensive metabolic panel (12/28/2017 2:19 AM) Component Value Ref Range Protein, Total 4.8 (L) 6.0 - 8.3 gm/dL Albumin 2.4 (L) 3.5 - 5.0 g/dL Alkaline Phosphatase 45 40 - 150 U/L Total Bilirubin 0.4 0.2 - 1.2 mg/dL Sodium 134 (L) 136 - 145 meq/L Potassium 3.7 3.5 - 5.1 meq/L Chloride 96 (L) 98 - 107 meq/L CO2 20 (L) 22 - 29 meq/L BUN 38 (H) 7 - 21 mg/dL Creatinine 3.49 (H) 0.57 - 1.25 mg/dL Glucose 276 (H) 70 - 105 mg/dL Calcium 8.0 (L) 8.4 - 10.2 mg/dL AST 34 5 - 34 U/L ALT 14 6 - 55 U/L EGFR Comment: INSUFFICIENT CLINICAL DATA TO mL/min/1.73 sq m CALCULATE ESTIMATED GFR. Specimen Performing Laboratory Blood [address] [address] hCG, quantitative, (12/27/2017 11:13 PM) Component Value Ref Range hCG Quant <1 0 - 10 mIU/mL Specimen Performing Laboratory Blood [facility] [address] [place] [address], [place] [address] Narrative Non- Females: <10 mIU/mL Females: Gestation AgeReference Range(mIU/mL) 0.2-1 Week5-50 1-2 [id number] 2-3 Weeks 100-5,000 3-4 Weeks 500-10,000 4-5 Weeks 1,000-50,000 5-6 Weeks10,000-100,000 6-8 Weeks15,000-200,000 2-3 Months 10,000-100,000 after 01/23/2017
--- OUTSIDE RECORDS SUMMARY | 2018-01-24 19:52 | XMS REPORT ---
:1970 Author Organization [facility] Address [address] [place] [address] Care Team Providers Name Role Phone BRITTANY IGNACIO Unavailable Unavailable Problems This patient has no known problems. Allergies, Adverse Reactions, Alerts This patient has no known allergies or adverse reactions. Medications This patient has no known medications. Results Test Description Test Time Test Comments Text Results Atomic Results Result Comments APTT 2018-01-24 13:34:00 Test Item Value Reference Range Comments PARTIAL THROMBOPLASTIN TIME (BEAKER) (test qnwh=935) 57.7 seconds 22.5-36.0 PUL PERF IMAGING, PARTIC, [id number] 12:29:00FINAL REPORT PROCEDURE: V/Q LUNG SCAN CPT CODE: 80305 INDICATION: Chest pain PROTOCOL: 9.2 mCi of [...] 1. Very low probability of acute pulmonary embolization.2. Bilateral parenchymal abnormality and additional left pleural abnormality. Signed: Yeimy Barker MDReport Verified Date/Time: 01/24/2018 12:29:41 Reading Location: [address] Reading Room CBC W/PLT COUNT & AUTO [id number] 09: 54:00 Test Item Value Reference Range Comments WHITE BLOOD CELL COUNT (BEAKER) (test avda=087) 13.3 K/ L 3.5-10.5 RED BLOOD CELL COUNT (BEAKER) (test hjfn=643) 2.90 M/ L 3.93-5.22 HEMOGLOBIN (BEAKER) (test vnkk=112) 8.5 GM/DL 11.2-15.7 HEMATOCRIT (BEAKER) (test zfgo=908) 26.1 % 34.1-44.9 MEAN CORPUSCULAR VOLUME (BEAKER) (test yysa=732) 90.0 fL 79.4-94.8 MEAN CORPUSCULAR HEMOGLOBIN (BEAKER) (test 29.3 pg 25.6-32.2 yfdd=613) MEAN CORPUSCULAR HEMOGLOBIN CONC (BEAKER) (test 32.6 GM/DL 32.2-35.5 tfan=241) RED CELL DISTRIBUTION WIDTH (BEAKER) (test 15.7 % 11.7-14.4 bfdm=729) PLATELET COUNT (BEAKER) (test ccqc=077) 284 K/CU MM 150-450 MEAN PLATELET VOLUME (BEAKER) (test qdyq=891) 9.8 fL 9.4-12.3 NUCLEATED RED BLOOD CELLS (BEAKER) (test 0 /100 WBC 0-0 uebf=312) (CELLAVISION MANUAL DIFF)2018-01-24 09:54:00 Test Item Value Reference Range Comments NEUTROPHILS - REL (CELLAVISION)(BEAKER) (test 60 % cpuk=0111) LYMPHOCYTES - REL (CELLAVISION)(BEAKER) (test 10 % sgax=6016) MONOCYTES - REL (CELLAVISION)(BEAKER) (test 15 % qhjv=8539) EOSINOPHILS - REL (CELLAVISION)(BEAKER) (test 11 % dhaw=6911) MYELOCYTES - REL (CELLAVISION)(BEAKER) (test 3 % 0-0 idvd=2524) ATYPICAL LYMPHOCYTES - REL (CELLAVISION)(BEAKER) 1 % 0-0 (test hgxp=2390) NEUTROPHILS - ABS (CELLAVISION)(BEAKER) (test 7.98 K/ul 1.56-6.13 kziy=6479) LYMPHOCYTES - ABS (CELLAVISION)(BEAKER) (test 1.33 K/ul 1.18-3.74 izkc=5695) MONOCYTES - ABS (CELLAVISION)(BEAKER) (test 2.00 K/uL 0.24-0.36 pryw=7035) EOSINOPHILS - ABS (CELLAVISION)(BEAKER) (test 1.46 K/uL 0.04-0.36 fimx=3493) MYELOCYTES-ABS (CELLAVISION)(BEAKER) (test 0.40 K/uL 0.00-0.00 yvks=2105) ATYPICAL LYMPHOCYTES - ABS (CELLAVISION)(BEAKER) 0.13 K/uL 0.00-0.00 (test lbkd=0988) TOTAL COUNTED (BEAKER) (test zggj=0253) 100 WBC MORPHOLOGY (BEAKER) (test ibcz=874) Normal PLT MORPHOLOGY (BEAKER) (test rrqs=550) Normal ANISOCYTOSIS (BEAKER) (test tsgh=633) 2+ moderate MACROCYTES (BEAKER) (test lzhh=547) 2+ moderate ARTIFACT (CELLAVISION)(BEAKER) (test xhdb=4562) Present PLATELET CONCENTRATION (CELLAVISION)(BEAKER) Adequate (test qxlb=5387) Received comment: User comments: Slide comments:[id number] 05:44:00 Test Item Value Reference Range Comments PARTIAL THROMBOPLASTIN TIME (BEAKER) (test 103.3 seconds 22.5-36.0 hlws=718) BASIC METABOLIC [id number] 05:36:00 Test Item Value Reference Range Comments SODIUM (BEAKER) (test 133 meq/L 136-145 wssu=815) POTASSIUM (BEAKER) (test 4.8 meq/L 3.5-5.1 nxrk=562) CHLORIDE (BEAKER) (test 95 meq/L 98-107 tlnp=066) CO2 (BEAKER) (test 20 meq/L 22-29 sdmk=995) BLOOD UREA NITROGEN 70 mg/dL 7-21 (BEAKER) (test jhis=312) CREATININE (BEAKER) (test 5.56 mg/dL 0.57-1.25 bjss=626) GLUCOSE RANDOM (BEAKER) 94 mg/dL 70-105 (test gvzu=706) CALCIUM (BEAKER) (test 9.3 mg/dL 8.4-10.2 gduu=615) EGFR (BEAKER) (test 8 mL/min/1.73 sq m ESTIMATED GFR IS NOT vtak=9675) ACCURATE CREATININE CLEARANCE IN PREDICTING GLOMERULAR FILTRATION RATE. ESTIMATED GFR IS NOT APPLICABLE FOR DIALYSIS PATIENTS. [id number] 05:33:00 Test Item Value Reference Range Comments MAGNESIUM (BEAKER) (test aknw=065) 2.2 mg/dL 1.6-2.6 CBC (HEMOGRAM ONLY)2018-01-23 22:12:00 Test Item Value Reference Range Comments WHITE BLOOD CELL COUNT (BEAKER) (test kjvw=383) 12.7 K/ L 3.5-10.5 RED BLOOD CELL COUNT (BEAKER) (test bovx=573) 2.88 M/ L 3.93-5.22 HEMOGLOBIN (BEAKER) (test ocxb=051) 8.6 GM/DL 11.2-15.7 HEMATOCRIT (BEAKER) (test oiew=318) 26.3 % 34.1-44.9 MEAN CORPUSCULAR VOLUME (BEAKER) (test ubpi=259) 91.3 fL 79.4-94.8 MEAN CORPUSCULAR HEMOGLOBIN (BEAKER) (test 29.9 pg 25.6-32.2 vkpr=005) MEAN CORPUSCULAR HEMOGLOBIN CONC (BEAKER) (test 32.7 GM/DL 32.2-35.5 twcj=932) RED CELL DISTRIBUTION WIDTH (BEAKER) (test 15.8 % 11.7-14.4 ibvs=218) PLATELET COUNT (BEAKER) (test vjzp=604) 263 K/CU MM 150-450 MEAN PLATELET VOLUME (BEAKER) (test yloc=662) 9.4 fL 9.4-12.3 NUCLEATED RED BLOOD CELLS (BEAKER) (test 0 /100 WBC 0-0 eckb=147) RAD, CHEST, 2 [id number] 22:10:00Reason for exam:->chest painFINAL REPORT INDICATION: chest pain COMPARISON: January 20, 2018 TECHNIQUE: Frontal and lateral views of the chest. IMPRESSION:Left airspace disease is not significantly improved. There are trace bilateral effusions. No pneumothorax is visible. Mediastinal contours and support hardware are stable. Signed: JR Lauren, Katharine Mckeon Verified Date/Time: 01/23/2018 22:10: 11 Reading Location: [address] Reading Room [id number] 22:03:00 Test Item Value Reference Range Comments PARTIAL THROMBOPLASTIN TIME (BEAKER) (test 42.5 seconds 22.5-36.0 gvhq=188) Prior to initiating heparinTISSUE [id number] 16:59:00Surgical Pathology Report Case: [id number] Authorizing Provider: Imani Garcia MD Collected: 2017 Ordering Location: [address] Received : 01/19/2018 0910 Service Pathologist: Primo Renteria MD Specimen: Skin A. SITE NOT SPECIFIED, SKIN PUNCH BIOPSY:- PRURIGO/CHRONIC SPONGIOTIC DERMATITIS , WITH SCAR Signing [employer] Phone Line: [phone] Preliminary result electronically signed by Primo Renteria MD on 01/20/2018 at 2:21 [id number]; [id number] given Skin punch biopsyThe specimen is received in a formalin-filled container labeled with the patient's information and labeled "skin punch biopsy" and consists of a nonpigmented punch biopsy measuring 0.3 cm in greatest dimension. The resection margin is inked blue. The specimen is bisected and submitted entirely in A1. CG/ew A. Sections reveal skin with focal parakeratosis, acanthosis, focal spongiosis, focal lymphocytic exocytosis in the epidermis, and dermal fibrosis.The following special studieswere performed on this case and the interpretation is incorporated in the diagnostic report above:GMS - NegativeCBC W/PLT COUNT & AUTO [id number] 11:05:00 Test Item Value Reference Range Comments WHITE BLOOD CELL COUNT (BEAKER) (test jqtz=496) 12.3 K/ L 3.5-10.5 RED BLOOD CELL COUNT (BEAKER) (test akka=817) 3.07 M/ L 3.93-5.22 HEMOGLOBIN (BEAKER) (test uget=286) 8.8 GM/DL 11.2-15.7 HEMATOCRIT (BEAKER) (test edic=453) 28.3 % 34.1-44.9 MEAN CORPUSCULAR VOLUME (BEAKER) (test jmcm=006) 92.2 fL 79.4-94.8 MEAN CORPUSCULAR HEMOGLOBIN (BEAKER) (test 28.7 pg 25.6-32.2 gbna=519) MEAN CORPUSCULAR HEMOGLOBIN CONC (BEAKER) (test 31.1 GM/DL 32.2-35.5 yyon=073) RED CELL DISTRIBUTION WIDTH (BEAKER) (test 15.9 % 11.7-14.4 ddyf=040) PLATELET COUNT (BEAKER) (test gshl=664) 253 K/CU MM 150-450 MEAN PLATELET VOLUME (BEAKER) (test ryro=031) 9.5 fL 9.4-12.3 NUCLEATED RED BLOOD CELLS (BEAKER) (test 0 /100 WBC 0-0 kvvm=746) (CELLAVISION MANUAL DIFF)2018-01-23 11:05:00 Test Item Value Reference Range Comments NEUTROPHILS - REL (CELLAVISION)(BEAKER) (test 49 % kphq=2920) LYMPHOCYTES - REL (CELLAVISION)(BEAKER) (test 13 % awgf=5822) MONOCYTES - REL (CELLAVISION)(BEAKER) (test 7 % ynzn=0967) EOSINOPHILS - REL (CELLAVISION)(BEAKER) (test 16 % xedk=1038) BASOPHILS - REL (CELLAVISION)(BEAKER) (test 1 % lnlb=3635) METAMYELOCYTES - REL (CELLAVISION)(BEAKER) (test 1 % 0-0 yjku=7664) MYELOCYTES - REL (CELLAVISION)(BEAKER) (test 2 % 0-0 rlqe=6231) BANDS - REL (CELLAVISION)(BEAKER) (test xhml=9331) 11 % 0-10 NEUTROPHILS - ABS (CELLAVISION)(BEAKER) (test 6.03 K/ul 1.56-6.13 qofo=6511) LYMPHOCYTES - ABS (CELLAVISION)(BEAKER) (test 1.60 K/ul 1.18-3.74 wuln=4763) MONOCYTES - ABS (CELLAVISION)(BEAKER) (test 0.86 K/uL 0.24-0.36 xewx=6145) EOSINOPHILS - ABS (CELLAVISION)(BEAKER) (test 1.97 K/uL 0.04-0.36 ylho=7358) BASOPHILS - ABS (CELLAVISION)(BEAKER) (test 0.12 K/uL 0.01-0.08 icdt=7541) METAMYELOCYTES - ABS (CELLAVISION)(BEAKER) (test 0.12 K/uL 0.00-0.00 deax=8434) MYELOCYTES-ABS (CELLAVISION)(BEAKER) (test 0.25 K/uL 0.00-0.00 mbfh=6188) BANDS - ABS (CELLAVISION)(BEAKER) (test kyrz=4319) 1.35 K/uL 0.00-0.80 TOTAL COUNTED (BEAKER) (test osjr=0000) 100 RBC MORPHOLOGY (BEAKER) (test ydsz=542) Normal WBC MORPHOLOGY (BEAKER) (test dqlz=971) Normal PLT MORPHOLOGY (BEAKER) (test grlf=606) Normal ARTIFACT (CELLAVISION)(BEAKER) (test kksh=5317) Present PLATELET CONCENTRATION (CELLAVISION)(BEAKER) (test Adequate jdkd=9084) Received comment: User comments: Slide comments:BASIC METABOLIC [id number] 05:19:00 Test Item Value Reference Range Comments SODIUM (BEAKER) (test 131 meq/L 136-145 lohj=898) POTASSIUM (BEAKER) (test 5.0 meq/L 3.5-5.1 thcd=609) CHLORIDE (BEAKER) (test 93 meq/L 98-107 mtjt=625) CO2 (BEAKER) (test 21 meq/L 22-29 fmyh=041) BLOOD UREA NITROGEN 74 mg/dL 7-21 (BEAKER) (test fmyc=523) CREATININE (BEAKER) (test 5.82 mg/dL 0.57-1.25 vhzx=422) GLUCOSE RANDOM (BEAKER) 102 mg/dL 70-105 (test cofu=533) CALCIUM (BEAKER) (test 9.4 mg/dL 8.4-10.2 qyfh=560) EGFR (BEAKER) (test 8 mL/min/1.73 sq m ESTIMATED GFR IS NOT zbtz=1756) ACCURATE CREATININE CLEARANCE IN PREDICTING GLOMERULAR FILTRATION RATE. ESTIMATED GFR IS NOT APPLICABLE FOR DIALYSIS PATIENTS. [id number] 05:18:00 Test Item Value Reference Range Comments MAGNESIUM (BEAKER) (test kqtn=462) 2.1 mg/dL 1.6-2.6 CBC W/PLT COUNT & AUTO [id number] 07:51:00 Test Item Value Reference Range Comments WHITE BLOOD CELL COUNT (BEAKER) (test ikxf=420) 10.1 K/ L 3.5-10.5 RED BLOOD CELL COUNT (BEAKER) (test uskj=336) 2.69 M/ L 3.93-5.22 HEMOGLOBIN (BEAKER) (test kvst=888) 7.8 GM/DL 11.2-15.7 HEMATOCRIT (BEAKER) (test rmev=060) 24.8 % 34.1-44.9 MEAN CORPUSCULAR VOLUME (BEAKER) (test jpdm=070) 92.2 fL 79.4-94.8 MEAN CORPUSCULAR HEMOGLOBIN (BEAKER) (test 29.0 pg 25.6-32.2 fhuz=882) MEAN CORPUSCULAR HEMOGLOBIN CONC (BEAKER) (test 31.5 GM/DL 32.2-35.5 mrdc=814) RED CELL DISTRIBUTION WIDTH (BEAKER) (test 15.9 % 11.7-14.4 efum=220) PLATELET COUNT (BEAKER) (test kmoy=078) 209 K/CU MM 150-450 MEAN PLATELET VOLUME (BEAKER) (test hctl=398) 9.1 fL 9.4-12.3 NUCLEATED RED BLOOD CELLS (BEAKER) (test 0 /100 WBC 0-0 enmm=241) NEUTROPHILS RELATIVE PERCENT (BEAKER) (test 57 % bunh=749) LYMPHOCYTES RELATIVE PERCENT (BEAKER) (test 13 % fvza=752) MONOCYTES RELATIVE PERCENT (BEAKER) (test 13 % bwbt=359) EOSINOPHILS RELATIVE PERCENT (BEAKER) (test 11 % obhu=965) BASOPHILS RELATIVE PERCENT (BEAKER) (test 0 % pixn=053) NEUTROPHILS ABSOLUTE COUNT (BEAKER) (test 5.80 K/ L 1.56-6.13 gpon=942) LYMPHOCYTES ABSOLUTE COUNT (BEAKER) (test 1.31 K/ L 1.18-3.74 ilmp=145) MONOCYTES ABSOLUTE COUNT (BEAKER) (test 1.36 K/ L 0.24-0.36 jwge=313) EOSINOPHILS ABSOLUTE COUNT (BEAKER) (test 1.11 K/ L 0.04-0.36 qsta=537) BASOPHILS ABSOLUTE COUNT (BEAKER) (test 0.02 K/ L 0.01-0.08 djyl=037) IMMATURE GRANULOCYTES-RELATIVE PERCENT (BEAKER) 5 % 0-1 (test yucl=3281) BASIC METABOLIC [id number] 07:41:00 Test Item Value Reference Range Comments SODIUM (BEAKER) (test 136 meq/L 136-145 mjxj=829) POTASSIUM (BEAKER) (test 4.6 meq/L 3.5-5.1 fmxv=642) CHLORIDE (BEAKER) (test 101 meq/L 98-107 woth=025) CO2 (BEAKER) (test 18 meq/L 22-29 phat=012) BLOOD UREA NITROGEN 61 mg/dL 7-21 (BEAKER) (test suub=573) CREATININE (BEAKER) (test 4.80 mg/dL 0.57-1.25 xtfj=315) GLUCOSE RANDOM (BEAKER) 74 mg/dL 70-105 (test jngr=331) CALCIUM (BEAKER) (test 7.9 mg/dL 8.4-10.2 wzad=347) EGFR (BEAKER) (test 10 mL/min/1.73 sq m ESTIMATED GFR IS NOT ulle=3236) ACCURATE CREATININE CLEARANCE IN PREDICTING GLOMERULAR FILTRATION RATE. ESTIMATED GFR IS NOT APPLICABLE FOR DIALYSIS PATIENTS. [id number] 07:35:00 Test Item Value Reference Range Comments MAGNESIUM (BEAKER) (test auuc=712) 1.5 mg/dL 1.6-2.6 CBC W/PLT COUNT & AUTO [id number] 12:29:00 Test Item Value Reference Range Comments WHITE BLOOD CELL COUNT (BEAKER) (test rzyy=527) 11.5 K/ L 3.5-10.5 RED BLOOD CELL COUNT (BEAKER) (test xyng=717) 3.10 M/ L 3.93-5.22 HEMOGLOBIN (BEAKER) (test inpr=794) 9.0 GM/DL 11.2-15.7 HEMATOCRIT (BEAKER) (test bmmr=886) 28.0 % 34.1-44.9 MEAN CORPUSCULAR VOLUME (BEAKER) (test kivl=502) 90.3 fL 79.4-94.8 MEAN CORPUSCULAR HEMOGLOBIN (BEAKER) (test 29.0 pg 25.6-32.2 jyga=570) MEAN CORPUSCULAR HEMOGLOBIN CONC (BEAKER) (test 32.1 GM/DL 32.2-35.5 ituv=209) RED CELL DISTRIBUTION WIDTH (BEAKER) (test 15.8 % 11.7-14.4 cayz=272) PLATELET COUNT (BEAKER) (test xrob=080) 234 K/CU MM 150-450 MEAN PLATELET VOLUME (BEAKER) (test nrzn=923) 9.3 fL 9.4-12.3 NUCLEATED RED BLOOD CELLS (BEAKER) (test 0 /100 WBC 0-0 bdxu=162) (MANUAL DIFFERENTIAL)2018-01-21 12:29:00 Test Item Value Reference Range Comments NEUTROPHILS - REL (DIFF) (BEAKER) (test frcb=1248) 66 % LYMPHOCYTES - REL (DIFF) (BEAKER) (test ulpi=0036) 16 % MONOCYTES - REL (DIFF) (BEAKER) (test krkj=6726) 6 % EOSINOPHILS - REL (DIFF) (BEAKER) (test wevp=4098) 7 % METAMYELOCYTES-REL (DIFF) (BEAKER) (test esyg=392) 2 % 0-0 BANDS - REL (DIFF) (BEAKER) (test veyt=3060) 3 % 0-10 NEUTROPHILS - ABS (DIFF) (BEAKER) (test jmcu=7668) 7.59 K/ L 1.80-8.00 LYMPHOCYTES - ABS (DIFF) (BEAKER) (test kjbz=9868) 1.84 K/ L 1.48-4.50 MONOCYTES - ABS (DIFF) (BEAKER) (test pxug=9816) 0.69 K/ L 0.00-1.30 EOSINOPHILS - ABS (DIFF) (BEAKER) (test vmlq=1570) 0.81 K/ L 0.00-0.50 METAMYELOCTYES - ABS (DIFF) (BEAKER) (test 0.23 K/ L 0.00-0.00 gdkh=270) BANDS-ABS (DIFF) (BEAKER) (test nkzt=2075) 0.3 K/ L 0.0-0.8 TOTAL COUNTED (BEAKER) (test jcyf=5160) 100 BANDS + SEGMENTED NEUTROPHILS (BEAKER) (test 7.94 wtla=3100) WBC MORPHOLOGY (BEAKER) (test yibs=679) Normal PLT MORPHOLOGY (BEAKER) (test wuoa=601) Normal ANISOCYTOSIS (BEAKER) (test lsaj=507) 1+ few HYPOCHROMIA (BEAKER) (test btru=472) 1+ few MACROCYTES (BEAKER) (test esyj=085) 1+ few POIKILOCYTES (BEAKER) (test hqvg=569) 1+ few BASIC METABOLIC [id number] 05:36:00 Test Item Value Reference Range Comments SODIUM (BEAKER) (test 129 meq/L 136-145 ofkw=202) POTASSIUM (BEAKER) (test 5.2 meq/L 3.5-5.1 vhye=990) CHLORIDE (BEAKER) (test 93 meq/L 98-107 tzhs=550) CO2 (BEAKER) (test 23 meq/L 22-29 zxtf=793) BLOOD UREA NITROGEN 62 mg/dL 7-21 (BEAKER) (test buui=270) CREATININE (BEAKER) (test 5.72 mg/dL 0.57-1.25 edwn=278) GLUCOSE RANDOM (BEAKER) 107 mg/dL 70-105 (test yfpc=461) CALCIUM (BEAKER) (test 8.2 mg/dL 8.4-10.2 xqny=592) EGFR (BEAKER) (test 8 mL/min/1.73 sq m ESTIMATED GFR IS NOT hexm=6918) ACCURATE CREATININE CLEARANCE IN PREDICTING GLOMERULAR FILTRATION RATE. ESTIMATED GFR IS NOT APPLICABLE FOR DIALYSIS PATIENTS. [id number] 05:34:00 Test Item Value Reference Range Comments MAGNESIUM (BEAKER) (test muxi=971) 1.8 mg/dL 1.6-2.6 RAD, CHEST, 1 VIEW, NON [id number] 11:34:00Reason for exam:->post removal of chest tubesShould this be performed at the bedside?->YesFINAL REPORT Chest one view compared to January 19 Discussion: Airspace opacities left mid to low lung unchanged. Pulmonary congestion also visible on the right unchanged. Left-sided chest tubes have been removed. No gross evidence of effusion or pneumothorax. Central lines in place at the SVC level. Signed: Jony Mcfaddenteo Verified Date/Time: 01/20/2018 11:34:18 Reading Location: [facility] Radiology Reading Room CBC W/PLT COUNT & AUTO [id number] 07:33:00 Test Item Value Reference Range Comments WHITE BLOOD CELL COUNT (BEAKER) (test seil=732) 11.3 K/ L 3.5-10.5 RED BLOOD CELL COUNT (BEAKER) (test xlfh=162) 3.45 M/ L 3.93-5.22 HEMOGLOBIN (BEAKER) (test fchr=198) 10.0 GM/DL 11.2-15.7 HEMATOCRIT (BEAKER) (test gyhp=074) 31.0 % 34.1-44.9 MEAN CORPUSCULAR VOLUME (BEAKER) (test givt=890) 89.9 fL 79.4-94.8 MEAN CORPUSCULAR HEMOGLOBIN (BEAKER) (test 29.0 pg 25.6-32.2 jiah=962) MEAN CORPUSCULAR HEMOGLOBIN CONC (BEAKER) (test 32.3 GM/DL 32.2-35.5 zdtu=175) RED CELL DISTRIBUTION WIDTH (BEAKER) (test 15.6 % 11.7-14.4 ubda=413) PLATELET COUNT (BEAKER) (test yzxh=381) 258 K/CU MM 150-450 MEAN PLATELET VOLUME (BEAKER) (test iqzt=804) 9.0 fL 9.4-12.3 NUCLEATED RED BLOOD CELLS (BEAKER) (test 0 /100 WBC 0-0 wvyo=178) (CELLAVISION MANUAL DIFF)2018-01-20 07:33:00 Test Item Value Reference Range Comments NEUTROPHILS - REL (CELLAVISION)(BEAKER) (test 60 % fxwk=7443) LYMPHOCYTES - REL (CELLAVISION)(BEAKER) (test 14 % capp=5847) MONOCYTES - REL (CELLAVISION)(BEAKER) (test 10 % btsd=1269) EOSINOPHILS - REL (CELLAVISION)(BEAKER) (test 13 % glhh=4839) MYELOCYTES - REL (CELLAVISION)(BEAKER) (test 1 % 0-0 fpaq=7938) BANDS - REL (CELLAVISION)(BEAKER) (test hpzm=9977) 2 % 0-10 NEUTROPHILS - ABS (CELLAVISION)(BEAKER) (test 6.78 K/ul 1.56-6.13 lezy=3344) LYMPHOCYTES - ABS (CELLAVISION)(BEAKER) (test 1.58 K/ul 1.18-3.74 rzim=6981) MONOCYTES - ABS (CELLAVISION)(BEAKER) (test 1.13 K/uL 0.24-0.36 cljg=3920) EOSINOPHILS - ABS (CELLAVISION)(BEAKER) (test 1.47 K/uL 0.04-0.36 chjj=5202) MYELOCYTES-ABS (CELLAVISION)(BEAKER) (test 0.11 K/uL 0.00-0.00 zvtd=7137) BANDS - ABS (CELLAVISION)(BEAKER) (test eumb=9837) 0.23 K/uL 0.00-0.80 TOTAL COUNTED (BEAKER) (test ddcj=6069) 100 RBC MORPHOLOGY (BEAKER) (test ffzk=491) Normal WBC MORPHOLOGY (BEAKER) (test tfnk=964) Normal PLT MORPHOLOGY (BEAKER) (test gbgz=514) Normal ARTIFACT (CELLAVISION)(BEAKER) (test mtil=8853) Present PLATELET CONCENTRATION (CELLAVISION)(BEAKER) (test Adequate itkd=8981) Received comment: User comments: Slide comments:BASIC METABOLIC [id number] 04:25:00 Test Item Value Reference Range Comments SODIUM (BEAKER) (test 132 meq/L 136-145 zaty=415) POTASSIUM (BEAKER) (test 4.6 meq/L 3.5-5.1 ulkn=820) CHLORIDE (BEAKER) (test 94 meq/L 98-107 qvjy=440) CO2 (BEAKER) (test 24 meq/L 22-29 nmpo=000) BLOOD UREA NITROGEN 47 mg/dL 7-21 (BEAKER) (test mpyq=649) CREATININE (BEAKER) (test 5.44 mg/dL 0.57-1.25 mkii=673) GLUCOSE RANDOM (BEAKER) 92 mg/dL 70-105 (test cpcn=278) CALCIUM (BEAKER) (test 8.1 mg/dL 8.4-10.2 ilxd=019) EGFR (BEAKER) (test 8 mL/min/1.73 sq m ESTIMATED GFR IS NOT geyv=8349) ACCURATE CREATININE CLEARANCE IN PREDICTING GLOMERULAR FILTRATION RATE. ESTIMATED GFR IS NOT APPLICABLE FOR DIALYSIS PATIENTS. [id number] 04:23:00 Test Item Value Reference Range Comments MAGNESIUM (BEAKER) (test pnqb=801) 2.0 mg/dL 1.6-2.6 HEPATIC FUNCTION [id number] 04:23:00 Test Item Value Reference Range Comments TOTAL PROTEIN (BEAKER) (test mvyf=277) 6.5 gm/dL 6.0-8.3 ALBUMIN (BEAKER) (test rtzo=3896) 2.5 g/dL 3.5-5.0 BILIRUBIN TOTAL (BEAKER) (test upgk=559) 0.6 mg/dL 0.2-1.2 BILIRUBIN DIRECT (BEAKER) (test prnd=584) 0.4 mg/dL 0.1-0.5 ALKALINE PHOSPHATASE (BEAKER) (test zwxy=410) 133 U/L 40-150 AST (SGOT) (BEAKER) (test ypxr=203) 110 U/L 5-34 ALT (SGPT) (BEAKER) (test kjbg=839) 56 U/L 6-55 RAD, CHEST, 1 VIEW, NON [id number] 10:19:00Reason for exam:->pl effusionShould this be performed at the bedside?->YesIs the patient ? ->UnknownFINAL REPORT Chest one view compared to January 18, 2018 Discussion: There is diffuse interstitial and airspace opacities overall similar to that of the prior study. Left-sided chest tubes in place. Bilateral lines in place. No pneumothorax. IMPRESSIONS: Grossly similar chest appearance. Signed: Jony Mcfadden Verified Date/Time: 01/19/2018 10:19: 24 Reading Location: [facility] Radiology Reading Room CBC W/PLT COUNT & AUTO [id number] 09:09:00 Test Item Value Reference Range Comments WHITE BLOOD CELL COUNT (BEAKER) (test dtpi=006) 11.0 K/ L 3.5-10.5 RED BLOOD CELL COUNT (BEAKER) (test gcak=568) 3.26 M/ L 3.93-5.22 HEMOGLOBIN (BEAKER) (test hhlc=231) 9.5 GM/DL 11.2-15.7 HEMATOCRIT (BEAKER) (test ymal=139) 29.8 % 34.1-44.9 MEAN CORPUSCULAR VOLUME (BEAKER) (test uuyi=339) 91.4 fL 79.4-94.8 MEAN CORPUSCULAR HEMOGLOBIN (BEAKER) (test 29.1 pg 25.6-32.2 ghhx=825) MEAN CORPUSCULAR HEMOGLOBIN CONC (BEAKER) (test 31.9 GM/DL 32.2-35.5 khdf=548) RED CELL DISTRIBUTION WIDTH (BEAKER) (test 15.2 % 11.7-14.4 qury=231) PLATELET COUNT (BEAKER) (test ojet=023) 256 K/CU MM 150-450 MEAN PLATELET VOLUME (BEAKER) (test qkla=043) 9.0 fL 9.4-12.3 NUCLEATED RED BLOOD CELLS (BEAKER) (test 0 /100 WBC 0-0 hlyy=071) (CELLAVISION MANUAL DIFF)2018-01-19 09:09:00 Test Item Value Reference Range Comments NEUTROPHILS - REL (CELLAVISION)(BEAKER) (test 70 % kkqm=0206) LYMPHOCYTES - REL (CELLAVISION)(BEAKER) (test 9 % nmxq=3716) MONOCYTES - REL (CELLAVISION)(BEAKER) (test 9 % ftej=1465) EOSINOPHILS - REL (CELLAVISION)(BEAKER) (test 5 % sxjy=9608) BASOPHILS - REL (CELLAVISION)(BEAKER) (test 4 % tlwn=8076) METAMYELOCYTES - REL (CELLAVISION)(BEAKER) (test 1 % 0-0 vpzd=8293) MYELOCYTES - REL (CELLAVISION)(BEAKER) (test 2 % 0-0 dnze=9895) ATYPICAL LYMPHOCYTES - REL (CELLAVISION)(BEAKER) 1 % 0-0 (test vlnj=7211) NEUTROPHILS - ABS (CELLAVISION)(BEAKER) (test 7.70 K/ul 1.56-6.13 jnfy=8269) LYMPHOCYTES - ABS (CELLAVISION)(BEAKER) (test 0.99 K/ul 1.18-3.74 ymcd=7612) MONOCYTES - ABS (CELLAVISION)(BEAKER) (test 0.99 K/uL 0.24-0.36 vfnc=8622) EOSINOPHILS - ABS (CELLAVISION)(BEAKER) (test 0.55 K/uL 0.04-0.36 cdfm=3443) BASOPHILS - ABS (CELLAVISION)(BEAKER) (test 0.44 K/uL 0.01-0.08 qlgs=1188) METAMYELOCYTES - ABS (CELLAVISION)(BEAKER) (test 0.11 K/uL 0.00-0.00 vuml=8502) MYELOCYTES-ABS (CELLAVISION)(BEAKER) (test 0.22 K/uL 0.00-0.00 orkj=7770) ATYPICAL LYMPHOCYTES - ABS (CELLAVISION)(BEAKER) 0.11 K/uL 0.00-0.00 (test acul=6382) TOTAL COUNTED (BEAKER) (test bfkk=2560) 100 RBC MORPHOLOGY (BEAKER) (test ptbo=607) Normal WBC MORPHOLOGY (BEAKER) (test kenc=199) Normal PLT MORPHOLOGY (BEAKER) (test zxim=842) Normal ARTIFACT (CELLAVISION)(BEAKER) (test deno=8656) Present PLATELET CONCENTRATION (CELLAVISION)(BEAKER) (test Adequate llaq=4586) Received comment: User comments: Slide comments:BASIC METABOLIC [id number] 05:04:00 Test Item Value Reference Range Comments SODIUM (BEAKER) (test 132 meq/L 136-145 xagi=496) POTASSIUM (BEAKER) (test 3.9 meq/L 3.5-5.1 fgio=480) CHLORIDE (BEAKER) (test 94 meq/L 98-107 swjj=521) CO2 (BEAKER) (test 25 meq/L 22-29 rqug=934) BLOOD UREA NITROGEN 39 mg/dL 7-21 (BEAKER) (test jmlq=540) CREATININE (BEAKER) (test 4.84 mg/dL 0.57-1.25 pgap=725) GLUCOSE RANDOM (BEAKER) 95 mg/dL 70-105 (test mksf=010) CALCIUM (BEAKER) (test 8.1 mg/dL 8.4-10.2 xgcy=247) EGFR (BEAKER) (test 10 mL/min/1.73 sq m ESTIMATED GFR IS NOT lflj=0895) ACCURATE CREATININE CLEARANCE IN PREDICTING GLOMERULAR FILTRATION RATE. ESTIMATED GFR IS NOT APPLICABLE FOR DIALYSIS PATIENTS. [id number] 05:02:00 Test Item Value Reference Range Comments MAGNESIUM (BEAKER) (test vkzq=735) 1.9 mg/dL 1.6-2.6 RAD, CHEST, 1 VIEW, NON [id number] 07:59:00Reason for exam:->pl effusionShould this be performed at the bedside?->YesIs the patient ? ->UnknownFINAL REPORT Chest one view compared to January 17 Discussion: Interstitial and airspace opacities are similar. Left chest tube , bilateral lines in place. I could not exclude small effusions. No pneumothorax. Signed: Jony Mcfaddeneport Verified Date/Time: 01/18/2018 07: 59:11 Reading Location: [facility] Radiology Reading Room CBC W/PLT COUNT & AUTO [id number] 07:38:00 Test Item Value Reference Range Comments WHITE BLOOD CELL COUNT (BEAKER) (test ihsh=086) 11.5 K/ L 3.5-10.5 RED BLOOD CELL COUNT (BEAKER) (test zywl=215) 3.18 M/ L 3.93-5.22 HEMOGLOBIN (BEAKER) (test zece=590) 9.5 GM/DL 11.2-15.7 HEMATOCRIT (BEAKER) (test acts=992) 28.9 % 34.1-44.9 MEAN CORPUSCULAR VOLUME (BEAKER) (test ykly=458) 90.9 fL 79.4-94.8 MEAN CORPUSCULAR HEMOGLOBIN (BEAKER) (test 29.9 pg 25.6-32.2 fiqa=868) MEAN CORPUSCULAR HEMOGLOBIN CONC (BEAKER) (test 32.9 GM/DL 32.2-35.5 apjr=486) RED CELL DISTRIBUTION WIDTH (BEAKER) (test 14.8 % 11.7-14.4 usnv=386) PLATELET COUNT (BEAKER) (test ryhk=783) 265 K/CU MM 150-450 MEAN PLATELET VOLUME (BEAKER) (test zuzl=526) 9.1 fL 9.4-12.3 NUCLEATED RED BLOOD CELLS (BEAKER) (test 0 /100 WBC 0-0 iysp=088) (CELLAVISION MANUAL DIFF)2018-01-18 07:38:00 Test Item Value Reference Range Comments NEUTROPHILS - REL (CELLAVISION)(BEAKER) (test 72 % felo=7672) LYMPHOCYTES - REL (CELLAVISION)(BEAKER) (test 7 % zxva=0279) MONOCYTES - REL (CELLAVISION)(BEAKER) (test 10 % jlza=9863) EOSINOPHILS - REL (CELLAVISION)(BEAKER) (test 5 % pean=7903) METAMYELOCYTES - REL (CELLAVISION)(BEAKER) (test 4 % 0-0 jpzf=7094) BANDS - REL (CELLAVISION)(BEAKER) (test bmgf=2364) 2 % 0-10 NEUTROPHILS - ABS (CELLAVISION)(BEAKER) (test 8.28 K/ul 1.56-6.13 lagn=4309) LYMPHOCYTES - ABS (CELLAVISION)(BEAKER) (test 0.81 K/ul 1.18-3.74 myvw=6798) MONOCYTES - ABS (CELLAVISION)(BEAKER) (test 1.15 K/uL 0.24-0.36 nmox=3891) EOSINOPHILS - ABS (CELLAVISION)(BEAKER) (test 0.58 K/uL 0.04-0.36 gcxt=1586) METAMYELOCYTES - ABS (CELLAVISION)(BEAKER) (test 0.46 K/uL 0.00-0.00 mzmp=1221) BANDS - ABS (CELLAVISION)(BEAKER) (test ttun=4623) 0.23 K/uL 0.00-0.80 TOTAL COUNTED (BEAKER) (test ntkd=4435) 100 WBC MORPHOLOGY (BEAKER) (test equu=763) Normal PLT MORPHOLOGY (BEAKER) (test trvz=921) Normal POLYCHROMATOPHILLIC RBCS(BEAKER) (test sdqe=603) 1+ few ANISOCYTOSIS (BEAKER) (test zsgl=974) 1+ few MICROCYTES (BEAKER) (test ggcf=227) 1+ few ARTIFACT (CELLAVISION)(BEAKER) (test vjtw=7607) Present PLATELET CONCENTRATION (CELLAVISION)(BEAKER) (test Adequate gdrd=3243) Received comment: User comments: Slide comments:BASIC METABOLIC [id number] 07:02:00 Test Item Value Reference Range Comments SODIUM (BEAKER) (test 133 meq/L 136-145 voiq=440) POTASSIUM (BEAKER) (test 3.8 meq/L 3.5-5.1 ixtm=043) CHLORIDE (BEAKER) (test 96 meq/L 98-107 rsma=401) CO2 (BEAKER) (test 25 meq/L 22-29 vsmq=539) BLOOD UREA NITROGEN 31 mg/dL 7-21 (BEAKER) (test hxrc=622) CREATININE (BEAKER) (test 3.94 mg/dL 0.57-1.25 dsxb=177) GLUCOSE RANDOM (BEAKER) 85 mg/dL 70-105 (test ptnk=379) CALCIUM (BEAKER) (test 8.1 mg/dL 8.4-10.2 qmyy=520) EGFR (BEAKER) (test 12 mL/min/1.73 sq m ESTIMATED GFR IS NOT qfen=0366) ACCURATE CREATININE CLEARANCE IN PREDICTING GLOMERULAR FILTRATION RATE. ESTIMATED GFR IS NOT APPLICABLE FOR DIALYSIS PATIENTS. [id number] 07:00:00 Test Item Value Reference Range Comments MAGNESIUM (BEAKER) (test cdku=973) 1.9 mg/dL 1.6-2.6 RAD, CHEST, 1 VIEW, NON [id number] 15:06:00Reason for exam:->pl effusionShould this be performed at the bedside?->YesIs the patient ? ->UnknownFINAL REPORT Chest, 1 view. History: Pleural effusion. Comparison: Limited radiograph of the chest, 01/26/2018.. Findings: Unchanged support apparatus. Decreased lung volumes. Small bilateral pleural effusions, slightly increased on the right and the interval. No pneumothorax. Persistent left retrocardiac opacity most consistent with partial left lower lobe collapse. Persistent heterogeneous perihilar and left lower lobe airspace opacities appear slightly increased in the interval may be related in part to low lung volumes. Unchanged cardiac mediastinal silhouette. Surgical skin carlene over the left chest wall. The soft tissues and osseous structures are intact. IMPRESSION: Persistent small pleural effusions, slightly increased on the right with persistent perihilar andleft lower lobe airspace opacities. Signed: Ema Stone Verified Date/Time: 15:06:35 Reading Location: [address] Transitional Reading Room CBC W/PLT COUNT & AUTO [id number] 11:18:00 Test Item Value Reference Range Comments WHITE BLOOD CELL COUNT (BEAKER) (test dkue=657) 13.5 K/ L 3.5-10.5 RED BLOOD CELL COUNT (BEAKER) (test xrfw=203) 3.24 M/ L 3.93-5.22 HEMOGLOBIN (BEAKER) (test fxpe=721) 9.4 GM/DL 11.2-15.7 HEMATOCRIT (BEAKER) (test uapy=036) 29.1 % 34.1-44.9 MEAN CORPUSCULAR VOLUME (BEAKER) (test utqe=897) 89.8 fL 79.4-94.8 MEAN CORPUSCULAR HEMOGLOBIN (BEAKER) (test 29.0 pg 25.6-32.2 vwzk=731) MEAN CORPUSCULAR HEMOGLOBIN CONC (BEAKER) (test 32.3 GM/DL 32.2-35.5 qijp=737) RED CELL DISTRIBUTION WIDTH (BEAKER) (test 14.8 % 11.7-14.4 llho=904) PLATELET COUNT (BEAKER) (test dqiv=879) 238 K/CU MM 150-450 MEAN PLATELET VOLUME (BEAKER) (test cwic=261) 9.2 fL 9.4-12.3 NUCLEATED RED BLOOD CELLS (BEAKER) (test 0 /100 WBC 0-0 uffz=696) (CELLAVISION MANUAL DIFF)2018-01-17 11:18:00 Test Item Value Reference Range Comments NEUTROPHILS - REL (CELLAVISION)(BEAKER) (test 64 % bwwp=5281) LYMPHOCYTES - REL (CELLAVISION)(BEAKER) (test 12 % enhf=4906) MONOCYTES - REL (CELLAVISION)(BEAKER) (test 10 % opmt=5557) EOSINOPHILS - REL (CELLAVISION)(BEAKER) (test 2 % bmeh=0319) METAMYELOCYTES - REL (CELLAVISION)(BEAKER) (test 3 % 0-0 qctz=8723) MYELOCYTES - REL (CELLAVISION)(BEAKER) (test 6 % 0-0 suzc=5578) BANDS - REL (CELLAVISION)(BEAKER) (test 3 % 0-10 ksar=1085) NEUTROPHILS - ABS (CELLAVISION)(BEAKER) (test 8.64 K/ul 1.56-6.13 fiud=4375) LYMPHOCYTES - ABS (CELLAVISION)(BEAKER) (test 1.62 K/ul 1.18-3.74 ydlm=6744) MONOCYTES - ABS (CELLAVISION)(BEAKER) (test 1.35 K/uL 0.24-0.36 hsje=2291) EOSINOPHILS - ABS (CELLAVISION)(BEAKER) (test 0.27 K/uL 0.04-0.36 xoyo=0124) METAMYELOCYTES - ABS (CELLAVISION)(BEAKER) (test 0.41 K/uL 0.00-0.00 rzyf=3001) MYELOCYTES-ABS (CELLAVISION)(BEAKER) (test 0.81 K/uL 0.00-0.00 ofei=3703) BANDS - ABS (CELLAVISION)(BEAKER) (test 0.41 K/uL 0.00-0.80 ruyn=5891) TOTAL COUNTED (BEAKER) (test mldd=1868) 100 PLT MORPHOLOGY (BEAKER) (test fgrq=205) Normal SMUDGE CELLS (BEAKER) (test gdbj=8187) Present POLYCHROMATOPHILLIC RBCS(BEAKER) (test ypyy=219) 2+ moderate HYPOCHROMIA (BEAKER) (test jreo=413) 1+ few ANISOCYTOSIS (BEAKER) (test fbzr=456) 1+ few PLATELET CONCENTRATION (CELLAVISION)(BEAKER) Adequate (test okkt=7491) Received comment: User comments: Slide comments:BASIC METABOLIC [id number] 10:57:00 Test Item Value Reference Range Comments SODIUM (BEAKER) (test 129 meq/L 136-145 ipbs=870) POTASSIUM (BEAKER) (test 4.4 meq/L 3.5-5.1 xwkx=499) CHLORIDE (BEAKER) (test 94 meq/L 98-107 fmhq=341) CO2 (BEAKER) (test 23 meq/L 22-29 odvk=516) BLOOD UREA NITROGEN 55 mg/dL 7-21 (BEAKER) (test cksz=301) CREATININE (BEAKER) (test 5.75 mg/dL 0.57-1.25 kqid=263) GLUCOSE RANDOM (BEAKER) 86 mg/dL 70-105 (test nlcv=186) CALCIUM (BEAKER) (test 8.3 mg/dL 8.4-10.2 ryuh=007) EGFR (BEAKER) (test 8 mL/min/1.73 sq m ESTIMATED GFR IS NOT quje=1446) ACCURATE CREATININE CLEARANCE IN PREDICTING GLOMERULAR FILTRATION RATE. ESTIMATED GFR IS NOT APPLICABLE FOR DIALYSIS PATIENTS. [id number] 10:55:00 Test Item Value Reference Range Comments MAGNESIUM (BEAKER) (test ygmr=785) 2.2 mg/dL 1.6-2.6 VANCOMYCIN LEVEL, [id number] 05:29:00 Test Item Value Reference Range Comments VANCOMYCIN TROUGH (BEAKER) (test chcm=260) 15.1 ug/mL 10.0-20.0 CBC W/PLT COUNT & AUTO [id number] 13:23:00 Test Item Value Reference Range Comments WHITE BLOOD CELL COUNT (BEAKER) (test ygba=911) 15.1 K/ L 3.5-10.5 RED BLOOD CELL COUNT (BEAKER) (test mrsg=403) 2.97 M/ L 3.93-5.22 HEMOGLOBIN (BEAKER) (test uzmu=771) 8.9 GM/DL 11.2-15.7 HEMATOCRIT (BEAKER) (test gpxc=939) 27.5 % 34.1-44.9 MEAN CORPUSCULAR VOLUME (BEAKER) (test mutr=860) 92.6 fL 79.4-94.8 MEAN CORPUSCULAR HEMOGLOBIN (BEAKER) (test 30.0 pg 25.6-32.2 onrr=578) MEAN CORPUSCULAR HEMOGLOBIN CONC (BEAKER) (test 32.4 GM/DL 32.2-35.5 bohw=408) RED CELL DISTRIBUTION WIDTH (BEAKER) (test 15.2 % 11.7-14.4 qolt=765) PLATELET COUNT (BEAKER) (test uwdh=495) 210 K/CU MM 150-450 MEAN PLATELET VOLUME (BEAKER) (test liwj=375) 9.2 fL 9.4-12.3 NUCLEATED RED BLOOD CELLS (BEAKER) (test 1 /100 WBC 0-0 epth=243) (CELLAVISION MANUAL DIFF)2018-01-16 13:23:00 Test Item Value Reference Range Comments NEUTROPHILS - REL (CELLAVISION)(BEAKER) (test 70 % uinp=9463) LYMPHOCYTES - REL (CELLAVISION)(BEAKER) (test 8 % bsgf=2072) MONOCYTES - REL (CELLAVISION)(BEAKER) (test 14 % jdlu=3816) EOSINOPHILS - REL (CELLAVISION)(BEAKER) (test 2 % unyf=4466) BASOPHILS - REL (CELLAVISION)(BEAKER) (test 1 % digp=3656) METAMYELOCYTES - REL (CELLAVISION)(BEAKER) (test 1 % 0-0 zlhj=3264) BANDS - REL (CELLAVISION)(BEAKER) (test 3 % 0-10 ekni=7378) ATYPICAL LYMPHOCYTES - REL (CELLAVISION)(BEAKER) 1 % 0-0 (test juhy=4930) NEUTROPHILS - ABS (CELLAVISION)(BEAKER) (test 10.57 K/ul 1.56-6.13 beln=4420) LYMPHOCYTES - ABS (CELLAVISION)(BEAKER) (test 1.21 K/ul 1.18-3.74 xpcd=7197) MONOCYTES - ABS (CELLAVISION)(BEAKER) (test 2.11 K/uL 0.24-0.36 irov=0496) EOSINOPHILS - ABS (CELLAVISION)(BEAKER) (test 0.30 K/uL 0.04-0.36 ukiz=1809) BASOPHILS - ABS (CELLAVISION)(BEAKER) (test 0.15 K/uL 0.01-0.08 icnv=3844) METAMYELOCYTES - ABS (CELLAVISION)(BEAKER) (test 0.15 K/uL 0.00-0.00 vshp=6855) BANDS - ABS (CELLAVISION)(BEAKER) (test 0.45 K/uL 0.00-0.80 jsdu=6428) ATYPICAL LYMPHOCYTES - ABS (CELLAVISION)(BEAKER) 0.15 K/uL 0.00-0.00 (test llha=1504) TOTAL COUNTED (BEAKER) (test qnzt=1463) 100 MANUAL NRBC PER 100 CELLS (BEAKER) (test 2 /100 WBC 0-0 pepl=4962) WBC MORPHOLOGY (BEAKER) (test lnva=301) Normal LARGE PLT(BEAKER) (test dzck=7191) Present POLYCHROMATOPHILLIC RBCS(BEAKER) (test cptm=189) 1+ few ARTIFACT (CELLAVISION)(BEAKER) (test jjjs=4895) Present PLATELET CONCENTRATION (CELLAVISION)(BEAKER) Adequate (test ooyt=1889) Received comment: User comments: Slide comments:RAD, CHEST, 1 VIEW, NON [id number] 07:49:00Reason for exam:->s/p cardiac surgeryShould this be performed at the bedside?->YesFINAL REPORT Chest one view compared to January 15 Discussion: Left-sided chest tubes, lines, and ill-defined bilateral interstitial and airspace opacities overall similar. No gross effusion or pneumothorax. Signed: Jony Mcfadden Verified Date/Time: 03/2018 07:49:15 Reading Location: [facility] Radiology Reading Room Electronically signed by: JONY MCFADDEN M.D.on 01/16/2018 07:49 AMBASIC METABOLIC [id number] 06:14:00 Test Item Value Reference Range Comments SODIUM (BEAKER) (test 129 meq/L 136-145 gmzt=459) POTASSIUM (BEAKER) (test 4.1 meq/L 3.5-5.1 tpbt=651) CHLORIDE (BEAKER) (test 94 meq/L 98-107 hbpv=298) CO2 (BEAKER) (test 20 meq/L 22-29 dmhk=795) BLOOD UREA NITROGEN 44 mg/dL 7-21 (BEAKER) (test vbsl=765) CREATININE (BEAKER) (test 4.50 mg/dL 0.57-1.25 ovbz=006) GLUCOSE RANDOM (BEAKER) 90 mg/dL 70-105 (test htyu=847) CALCIUM (BEAKER) (test 8.5 mg/dL 8.4-10.2 yaag=790) EGFR (BEAKER) (test 11 mL/min/1.73 sq m ESTIMATED GFR IS NOT irfh=4402) ACCURATE CREATININE CLEARANCE IN PREDICTING GLOMERULAR FILTRATION RATE. ESTIMATED GFR IS NOT APPLICABLE FOR DIALYSIS PATIENTS. [id number] 06:10:00 Test Item Value Reference Range Comments PHOSPHORUS (BEAKER) (test fifa=254) 5.8 mg/dL 2.3-4.7 [id number] 06:10:00 Test Item Value Reference Range Comments MAGNESIUM (BEAKER) (test uxdi=695) 2.1 mg/dL 1.6-2.6 HEPATIC FUNCTION [id number] 06:10:00 Test Item Value Reference Range Comments TOTAL PROTEIN (BEAKER) (test rhwv=844) 6.8 gm/dL 6.0-8.3 ALBUMIN (BEAKER) (test qybs=7626) 2.8 g/dL 3.5-5.0 BILIRUBIN TOTAL (BEAKER) (test duxp=688) 0.9 mg/dL 0.2-1.2 BILIRUBIN DIRECT (BEAKER) (test gxkn=624) 0.7 mg/dL 0.1-0.5 ALKALINE PHOSPHATASE (BEAKER) (test bexo=941) 192 U/L 40-150 AST (SGOT) (BEAKER) (test mthz=389) 1017 U/L 5-34 ALT (SGPT) (BEAKER) (test itrl=875) 435 U/L 6-55 CBC W/PLT COUNT & AUTO [id number] 10:57:00 Test Item Value Reference Range Comments WHITE BLOOD CELL COUNT (BEAKER) (test ppzz=837) 12.1 K/ L 3.5-10.5 RED BLOOD CELL COUNT (BEAKER) (test qmxn=319) 2.72 M/ L 3.93-5.22 HEMOGLOBIN (BEAKER) (test asbz=936) 8.2 GM/DL 11.2-15.7 HEMATOCRIT (BEAKER) (test wank=239) 24.9 % 34.1-44.9 MEAN CORPUSCULAR VOLUME (BEAKER) (test xzai=003) 91.5 fL 79.4-94.8 MEAN CORPUSCULAR HEMOGLOBIN (BEAKER) (test 30.1 pg 25.6-32.2 kkkn=887) MEAN CORPUSCULAR HEMOGLOBIN CONC (BEAKER) (test 32.9 GM/DL 32.2-35.5 vsea=009) RED CELL DISTRIBUTION WIDTH (BEAKER) (test 15.5 % 11.7-14.4 hhlj=474) PLATELET COUNT (BEAKER) (test hovh=600) 224 K/CU MM 150-450 MEAN PLATELET VOLUME (BEAKER) (test isof=584) 9.2 fL 9.4-12.3 NUCLEATED RED BLOOD CELLS (BEAKER) (test 2 /100 WBC 0-0 ebns=050) (CELLAVISION MANUAL DIFF)2018-01-15 10:57:00 Test Item Value Reference Range Comments NEUTROPHILS - REL (CELLAVISION)(BEAKER) (test 79 % ntts=6773) LYMPHOCYTES - REL (CELLAVISION)(BEAKER) (test 14 % jwhw=7327) MONOCYTES - REL (CELLAVISION)(BEAKER) (test 2 % nmjx=7781) BASOPHILS - REL (CELLAVISION)(BEAKER) (test 3 % ajvr=8908) MYELOCYTES - REL (CELLAVISION)(BEAKER) (test 1 % 0-0 gbzh=4103) BANDS - REL (CELLAVISION)(BEAKER) (test 1 % 0-10 ofic=6441) NEUTROPHILS - ABS (CELLAVISION)(BEAKER) (test 9.56 K/ul 1.56-6.13 ocio=6747) LYMPHOCYTES - ABS (CELLAVISION)(BEAKER) (test 1.69 K/ul 1.18-3.74 tyim=8952) MONOCYTES - ABS (CELLAVISION)(BEAKER) (test 0.24 K/uL 0.24-0.36 xqpy=0109) BASOPHILS - ABS (CELLAVISION)(BEAKER) (test 0.36 K/uL 0.01-0.08 gdda=6201) MYELOCYTES-ABS (CELLAVISION)(BEAKER) (test 0.12 K/uL 0.00-0.00 bvxe=4650) BANDS - ABS (CELLAVISION)(BEAKER) (test 0.12 K/uL 0.00-0.80 jbwj=8664) TOTAL COUNTED (BEAKER) (test ljnr=9619) 100 MANUAL NRBC PER 100 CELLS (BEAKER) (test 3 /100 WBC 0-0 vnjw=2186) RBC MORPHOLOGY (BEAKER) (test eoqu=767) Normal WBC MORPHOLOGY (BEAKER) (test snco=271) Normal PLT MORPHOLOGY (BEAKER) (test ysuy=546) Normal ARTIFACT (CELLAVISION)(BEAKER) (test dspu=9017) Present PLATELET CONCENTRATION (CELLAVISION)(BEAKER) Adequate (test gjre=4013) Received comment: User comments: Slide comments:RAD, CHEST, 1 VIEW, NON [id number] 09:45:00Reason for exam:->s/p cardiac surgeryShould this be performed at the bedside?->YesFINAL REPORT Chest dated 2017 COMPARISON: January 14, 2018 Clinical Information: s/p cardiac surgery Comment : Heart is enlarged. Pulmonary vasculature is indistinct. Interstitial disease is seen bilaterally suggestive of vascular congestion or pulmonary edema. There is small left pleural effusion. Supporting lines and tubes remain in place. No pneumothorax is noted. Signed: Salvatore Salinas Verified Date/Time: 2017 09:45:25 Reading Location: [facility] C013Y CT Body Reading Room POCT-GLUCOSE [id number] 06:20:00 Test Item Value Reference Range Comments POC-GLUCOSE METER (BEAKER) 85 mg/dL 70-110 TESTED AT [facility] [address] (test eaby=9655) [place] [address] CALCIUM, [id number] 04:29:00 Test Item Value Reference Range Comments CALCIUM IONIZED (BEAKER) (test lkrk=042) 1.07 mmol/L 1.12-1.27 PH, BLOOD (BEAKER) (test gsoh=4671) 7.35 BASIC METABOLIC [id number] 04:22:00 Test Item Value Reference Range Comments SODIUM (BEAKER) (test 134 meq/L 136-145 bguk=657) POTASSIUM (BEAKER) (test 3.9 meq/L 3.5-5.1 wvjs=764) CHLORIDE (BEAKER) (test 98 meq/L 98-107 cktj=135) CO2 (BEAKER) (test 21 meq/L 22-29 qdnm=248) BLOOD UREA NITROGEN 33 mg/dL 7-21 (BEAKER) (test lgwr=258) CREATININE (BEAKER) (test 3.56 mg/dL 0.57-1.25 jemn=293) GLUCOSE RANDOM (BEAKER) 100 mg/dL 70-105 (test sjtk=871) CALCIUM (BEAKER) (test 8.6 mg/dL 8.4-10.2 vcei=301) EGFR (BEAKER) (test 14 mL/min/1.73 sq m ESTIMATED GFR IS NOT zmfn=2234) ACCURATE CREATININE CLEARANCE IN PREDICTING GLOMERULAR FILTRATION RATE. ESTIMATED GFR IS NOT APPLICABLE FOR DIALYSIS PATIENTS. OXYGEN SATURATION, [id number] 04:22:00 Test Item Value Reference Range Comments O2 SATURATION (MEASURED) (BEAKER) (test raxc=3476) 66.9 % [id number] 04:20:00 Test Item Value Reference Range Comments PHOSPHORUS (BEAKER) (test pqsl=005) 5.1 mg/dL 2.3-4.7 [id number] 04:20:00 Test Item Value Reference Range Comments MAGNESIUM (BEAKER) (test jfmy=856) 1.9 mg/dL 1.6-2.6 BLOOD GAS, [id number] 04:12:00 Test Item Value Reference Range Comments PH ARTERIAL (BEAKER) (test lqaw=682) 7.35 7.35-7.45 PCO2 ARTERIAL (BEAKER) (test vebb=059) 44 mmHg 35-45 PO2 ARTERIAL (BEAKER) (test udyx=245) 87 mmHg 80-90 O2 SATURATION ARTERIAL (BEAKER) (test tbyz=192) 96.3 % 96.0-97.0 HCO3 ARTERIAL (BEAKER) (test tnyn=695) 24 mmol/L 21-29 BASE EXCESS ARTERIAL (BEAKER) (test tgik=403) -1.5 mmol/L -2.0-3.0 PATIENT TEMPERATURE (BEAKER) (test rdsc=0465) 36.7 C FIO2 (BEAKER) (test qatx=9970) 36.0 % VANCOMYCIN LEVEL, [id number] 12:01:00 Test Item Value Reference Range Comments VANCOMYCIN RANDOM (BEAKER) (test bhyy=084) 25.1 ug/mL Reference Range: No NormalsRAD, CHEST, 1 VIEW, NON [id number] 10:18: 00Reason for exam:->s/p cardiac surgeryShould this be performed at the bedside?->YesFINAL REPORT Chest, 1 view Clinical history: s/p cardiac surgery Comparison: 01/13/2018 Discussion: Support hardware appears in appropriate positions. There is no pneumothorax. Worsening layering bilateral pleural effusions are seen with atelectasis or airspace disease. The cardiac silhouette is magnified by portable technique. There is worsening perihilar edema. No acute osseous abnormality. Signed: Esau Garner MDReport Verified Date/Time: 01/14/2018 10:18:22 Reading Location:[address] Ortho Consult Reading Room Electronically signed by: ESAU GARNER M.D. on 2017 10:18 AMCBC W/PLT COUNT & AUTO [id number] 07:58:00 Test Item Value Reference Range Comments WHITE BLOOD CELL COUNT 11.7 K/ L 3.5-10.5 (BEAKER) (test jzkk=345) RED BLOOD CELL COUNT (BEAKER) 3.06 M/ L 3.93-5.22 (test pvcx=498) HEMOGLOBIN (BEAKER) (test 9.0 GM/DL 11.2-15.7 mqfx=747) HEMATOCRIT (BEAKER) (test 27.7 % 34.1-44.9 ofto=361) MEAN CORPUSCULAR VOLUME 90.5 fL 79.4-94.8 Discordant MCV results (BEAKER) (test qvwf=062) compared to previous results; clinical correlation required. MEAN CORPUSCULAR HEMOGLOBIN 29.4 pg 25.6-32.2 (BEAKER) (test wbhb=354) MEAN CORPUSCULAR HEMOGLOBIN 32.5 GM/DL 32.2-35.5 CONC (BEAKER) (test uusc=040) RED CELL DISTRIBUTION WIDTH 15.1 % 11.7-14.4 (BEAKER) (test qjnp=170) PLATELET COUNT (BEAKER) (test 269 K/CU MM 150-450 Discordant PLT results oaeh=830) compared to previous results; clinical correlation required. MEAN PLATELET VOLUME (BEAKER) 9.0 fL 9.4-12.3 (test vdzd=646) NUCLEATED RED BLOOD CELLS 0 /100 WBC 0-0 (BEAKER) (test rmza=516) (CELLAVISION MANUAL DIFF)2018-01-14 07:58:00 Test Item Value Reference Range Comments NEUTROPHILS - REL (CELLAVISION)(BEAKER) (test 66 % bess=4251) LYMPHOCYTES - REL (CELLAVISION)(BEAKER) (test 3 % zqsm=6827) MONOCYTES - REL (CELLAVISION)(BEAKER) (test 18 % mypi=7066) METAMYELOCYTES - REL (CELLAVISION)(BEAKER) (test 1 % 0-0 emtl=0425) MYELOCYTES - REL (CELLAVISION)(BEAKER) (test 2 % 0-0 ntfz=4012) BANDS - REL (CELLAVISION)(BEAKER) (test xtky=5953) 10 % 0-10 NEUTROPHILS - ABS (CELLAVISION)(BEAKER) (test 7.72 K/ul 1.56-6.13 uemx=5362) LYMPHOCYTES - ABS (CELLAVISION)(BEAKER) (test 0.35 K/ul 1.18-3.74 leoq=0281) MONOCYTES - ABS (CELLAVISION)(BEAKER) (test 2.11 K/uL 0.24-0.36 ltgp=9946) METAMYELOCYTES - ABS (CELLAVISION)(BEAKER) (test 0.12 K/uL 0.00-0.00 axkj=6496) MYELOCYTES-ABS (CELLAVISION)(BEAKER) (test 0.23 K/uL 0.00-0.00 ssyp=0645) BANDS - ABS (CELLAVISION)(BEAKER) (test blza=2717) 1.17 K/uL 0.00-0.80 TOTAL COUNTED (BEAKER) (test asoi=5175) 100 WBC MORPHOLOGY (BEAKER) (test fmxn=567) Normal GIANT PLATELETS (BEAKER) (test rcwm=568) Present POLYCHROMATOPHILLIC RBCS(BEAKER) (test bgrg=691) 1+ few ANISOCYTOSIS (BEAKER) (test jjma=050) 1+ few PLATELET CONCENTRATION (CELLAVISION)(BEAKER) (test Adequate lbag=6711) Received comment: User comments: Slide comments:[id number] 04:59:00 Test Item Value Reference Range Comments PHOSPHORUS (BEAKER) (test ebxl=004) 9.1 mg/dL 2.3-4.7 BASIC METABOLIC [id number] 04:56:00 Test Item Value Reference Range Comments SODIUM (BEAKER) (test 139 meq/L 136-145 owgw=934) POTASSIUM (BEAKER) (test 5.3 meq/L 3.5-5.1 hjoe=919) CHLORIDE (BEAKER) (test 105 meq/L 98-107 nugu=182) CO2 (BEAKER) (test 18 meq/L 22-29 bsji=282) BLOOD UREA NITROGEN 34 mg/dL 7-21 (BEAKER) (test acfz=792) CREATININE (BEAKER) (test 3.81 mg/dL 0.57-1.25 ydhm=052) GLUCOSE RANDOM (BEAKER) 88 mg/dL 70-105 (test nsmv=963) CALCIUM (BEAKER) (test 9.0 mg/dL 8.4-10.2 hkau=853) EGFR (BEAKER) (test 13 mL/min/1.73 sq m ESTIMATED GFR IS NOT rkcs=5646) ACCURATE CREATININE CLEARANCE IN PREDICTING GLOMERULAR FILTRATION RATE. ESTIMATED GFR IS NOT APPLICABLE FOR DIALYSIS PATIENTS. LACTIC ACID, ARTERIAL, WHOLE [id number] 04:31:00 Test Item Value Reference Range Comments LACTATE BLOOD ARTERIAL (2) (BEAKER) (test 2.9 mmol/L 0.5-2.2 gtdl=1974) Effective 11/12/2015: Units/Reference Range ChangeNew: 0.5-2.2 mmol/L Previous: 5 -20 mg/[id number] 04:16:00 Test Item Value Reference Range Comments MAGNESIUM (BEAKER) (test zoyi=229) 2.1 mg/dL 1.6-2.6 BLOOD GAS, [id number] 03:58:00 Test Item Value Reference Range Comments PH ARTERIAL (BEAKER) (test tlaz=802) 7.28 7.35-7.45 PCO2 ARTERIAL (BEAKER) (test llpl=519) 42 mmHg 35-45 PO2 ARTERIAL (BEAKER) (test dohn=943) 123 mmHg 80-90 O2 SATURATION ARTERIAL (BEAKER) (test msij=849) 98.0 % 96.0-97.0 HCO3 ARTERIAL (BEAKER) (test kvcs=550) 19 mmol/L 21-29 BASE EXCESS ARTERIAL (BEAKER) (test bomg=698) -7.2 mmol/L -2.0-3.0 PATIENT TEMPERATURE (BEAKER) (test rebl=9933) 36.7 C FIO2 (BEAKER) (test ipos=0822) 30.0 % CALCIUM, [id number] 03:55:00 Test Item Value Reference Range Comments CALCIUM IONIZED (BEAKER) (test gepk=399) 1.13 mmol/L 1.12-1.27 PH, BLOOD (BEAKER) (test huie=7428) 7.27 OXYGEN SATURATION, [id number] 03:54:00 Test Item Value Reference Range Comments O2 SATURATION (MEASURED) (BEAKER) (test svlw=8974) 71.9 % BLOOD GAS, [id number] 00:24:00 Test Item Value Reference Range Comments PH ARTERIAL (BEAKER) (test bhxg=840) 7.26 7.35-7.45 PCO2 ARTERIAL (BEAKER) (test bgwv=199) 44 mmHg 35-45 PO2 ARTERIAL (BEAKER) (test gzft=218) 147 mmHg 80-90 O2 SATURATION ARTERIAL (BEAKER) (test cbii=182) 98.5 % 96.0-97.0 HCO3 ARTERIAL (BEAKER) (test nfoe=099) 19 mmol/L 21-29 BASE EXCESS ARTERIAL (BEAKER) (test nzda=334) -7.3 mmol/L -2.0-3.0 PATIENT TEMPERATURE (BEAKER) (test uauv=7910) 37.3 C FIO2 (BEAKER) (test dtmr=9390) 50.0 % HEMOGLOBIN AND [id number] 22:44:00 Test Item Value Reference Range Comments HEMOGLOBIN (BEAKER) (test hijb=546) 9.6 GM/DL 11.2-15.7 HEMATOCRIT (BEAKER) (test ulfm=772) 29.8 % 34.1-44.9 LACTIC ACID, ARTERIAL, WHOLE [id number] 21:59:00 Test Item Value Reference Range Comments LACTATE BLOOD ARTERIAL (2) (BEAKER) (test 4.1 mmol/L 0.5-2.2 zseq=0059) Effective 11/12/2015: Units/Reference Range ChangeNew: 0.5-2.2 mmol/L Previous: 5 -20 mg/dLBLOOD GAS, [id number] 21:38:00 Test Item Value Reference Range Comments PH ARTERIAL (BEAKER) (test cskd=838) 7.28 7.35-7.45 PCO2 ARTERIAL (BEAKER) (test yrhu=031) 38 mmHg 35-45 PO2 ARTERIAL (BEAKER) (test gkcx=268) 95 mmHg 80-90 O2 SATURATION ARTERIAL (BEAKER) (test cybm=005) 96.4 % 96.0-97.0 HCO3 ARTERIAL (BEAKER) (test uebz=929) 17 mmol/L 21-29 BASE EXCESS ARTERIAL (BEAKER) (test qahd=793) -8.6 mmol/L -2.0-3.0 PATIENT TEMPERATURE (BEAKER) (test okqn=0244) 37.1 C FIO2 (BEAKER) (test niio=1135) 36.0 % BLOOD GAS, [id number] 17:39:00 Test Item Value Reference Range Comments PH ARTERIAL (BEAKER) (test kypo=450) 7.34 7.35-7.45 PCO2 ARTERIAL (BEAKER) (test qyme=622) 33 mmHg 35-45 PO2 ARTERIAL (BEAKER) (test cuag=812) 132 mmHg 80-90 O2 SATURATION ARTERIAL (BEAKER) (test crct=474) 98.5 % 96.0-97.0 HCO3 ARTERIAL (BEAKER) (test gxyj=950) 17 mmol/L 21-29 BASE EXCESS ARTERIAL (BEAKER) (test lwjz=038) -7.4 mmol/L -2.0-3.0 PATIENT TEMPERATURE (BEAKER) (test lbpg=4418) 37.2 C FIO2 (BEAKER) (test iyky=3883) 40.0 % CBC W/PLT COUNT & AUTO [id number] 16:02:00 Test Item Value Reference Range Comments WHITE BLOOD CELL COUNT (BEAKER) (test qkjg=258) 20.8 K/ L 3.5-10.5 RED BLOOD CELL COUNT (BEAKER) (test ucou=698) 3.35 M/ L 3.93-5.22 HEMOGLOBIN (BEAKER) (test btbi=971) 9.9 GM/DL 11.2-15.7 HEMATOCRIT (BEAKER) (test zriv=217) 31.7 % 34.1-44.9 MEAN CORPUSCULAR VOLUME (BEAKER) (test bvdp=488) 94.6 fL 79.4-94.8 MEAN CORPUSCULAR HEMOGLOBIN (BEAKER) (test 29.6 pg 25.6-32.2 xtld=535) MEAN CORPUSCULAR HEMOGLOBIN CONC (BEAKER) (test 31.2 GM/DL 32.2-35.5 ybwk=697) RED CELL DISTRIBUTION WIDTH (BEAKER) (test 14.2 % 11.7-14.4 fked=553) PLATELET COUNT (BEAKER) (test wvib=296) 589 K/CU MM 150-450 MEAN PLATELET VOLUME (BEAKER) (test unvj=407) 8.6 fL 9.4-12.3 NUCLEATED RED BLOOD CELLS (BEAKER) (test 0 /100 WBC 0-0 ossb=207) RAD, CHEST, 1 VIEW, NON [id number] 15:42:00Reason for exam:->post opShould this be performed at the bedside?->YesFINAL REPORT Chest one view. Clinical history: post op Comparison: January 10, 2018 Discussion: A frontal chest is provided. Cardiomediastinal contours are unchanged. ET is approximately 2 cm above the wally. A right PICC line in the left IJ line projects over the proximal SVC. There are two left-sided chest tubes. Retrocardiac opacity may reflect completion of pleural effusionand atelectasis/consolidation. There is mild degree of interstitial edema. No pneumothorax. Left chest wall skin carlene, and minimal left-sided subcutaneous emphysema. Signed: Jacob Stoll MDReport Verified Date/Time: 01/13/2018 15:42:24 Reading Location: [address] Consult Reading Room BASI METABOLIC [id number] 15:39:00 Test Item Value Reference Range Comments SODIUM (BEAKER) (test 136 meq/L 136-145 zqhm=369) POTASSIUM (BEAKER) (test 4.5 meq/L 3.5-5.1 ucqt=533) CHLORIDE (BEAKER) (test 106 meq/L 98-107 kzcg=346) CO2 (BEAKER) (test 19 meq/L 22-29 rcoa=497) BLOOD UREA NITROGEN 22 mg/dL 7-21 (BEAKER) (test fhiw=237) CREATININE (BEAKER) (test 2.98 mg/dL 0.57-1.25 jbjp=438) GLUCOSE RANDOM (BEAKER) 204 mg/dL 70-105 (test fqtf=255) CALCIUM (BEAKER) (test 10.1 mg/dL 8.4-10.2 vtfj=912) EGFR (BEAKER) (test 17 mL/min/1.73 sq m ESTIMATED GFR IS NOT lrsz=1509) ACCURATE CREATININE CLEARANCE IN PREDICTING GLOMERULAR FILTRATION RATE. ESTIMATED GFR IS NOT APPLICABLE FOR DIALYSIS PATIENTS. LACTIC ACID, ARTERIAL, WHOLE [id number] 15:19:00 Test Item Value Reference Range Comments LACTATE BLOOD ARTERIAL (2) (BEAKER) (test 3.2 mmol/L 0.5-2.2 gnrl=6168) Effective 11/12/2015: Units/Reference Range ChangeNew: 0.5-2.2 mmol/L Previous: 5 -20 mg/dLSODIUM NA-STAT [id number] 14:57:00 Test Item Value Reference Range Comments SODIUM (BEAKER) (test tjwf=938) 136 meq/L 135-148 POTASSIUM-STAT [id number] 14:57:00 Test Item Value Reference Range Comments POTASSIUM (BEAKER) (test mjkx=754) 4.4 meq/L 3.6-5.5 BLOOD GAS, [id number] 14:57:00 Test Item Value Reference Range Comments PH ARTERIAL (BEAKER) (test xqhm=725) 7.22 7.35-7.45 PCO2 ARTERIAL (BEAKER) (test bwpe=091) 52 mmHg 35-45 PO2 ARTERIAL (BEAKER) (test ntom=123) 141 mmHg 80-90 O2 SATURATION ARTERIAL (BEAKER) (test mzqt=723) 98.3 % 96.0-97.0 HCO3 ARTERIAL (BEAKER) (test jiss=663) 21 mmol/L 21-29 BASE EXCESS ARTERIAL (BEAKER) (test rnuc=724) -6.9 mmol/L -2.0-3.0 PATIENT TEMPERATURE (BEAKER) (test klei=9561) 36.6 C FIO2 (BEAKER) (test uuth=9626) 40.0 % GLUCOSE-STAT [id number] 14:57:00 Test Item Value Reference Range Comments GLUCOSE RANDOM (BEAKER) (test fmvl=410) 199 mg/dL 70-110 HGB/HCT (H&H) - STAT [id number] 14:57:00 Test Item Value Reference Range Comments HEMOGLOBIN (BEAKER) (test ibla=570) 10.5 g/dL 12.0-15.0 HEMATOCRIT (BEAKER) (test zequ=644) 31.0 % 36.0-45.0 BLOOD GAS, [id number] 12:42:00 Test Item Value Reference Range Comments PH ARTERIAL (BEAKER) (test edij=867) 7.40 7.35-7.45 PCO2 ARTERIAL (BEAKER) (test bpwh=016) 41 mmHg 35-45 PO2 ARTERIAL (BEAKER) (test cmml=740) 333 mmHg 80-90 O2 SATURATION ARTERIAL (BEAKER) (test otyt=730) 99.7 % 96.0-97.0 HCO3 ARTERIAL (BEAKER) (test otld=037) 25 mmol/L 21-29 BASE EXCESS ARTERIAL (BEAKER) (test cfqg=540) -0.2 mmol/L -2.0-3.0 PATIENT TEMPERATURE (BEAKER) (test wgof=0867) 36.0 C FIO2 (BEAKER) (test kqmv=3239) 100.0 % HGB/HCT (H&H) - STAT [id number] 12:42:00 Test Item Value Reference Range Comments HEMOGLOBIN (BEAKER) (test mhdj=815) 8.0 g/dL 12.0-15.0 HEMATOCRIT (BEAKER) (test dwve=108) 24.0 % 36.0-45.0 GLUCOSE-STAT [id number] 12:41:00 Test Item Value Reference Range Comments GLUCOSE RANDOM (BEAKER) (test umuh=595) 108 mg/dL 70-110 SODIUM NA-STAT [id number] 12:41:00 Test Item Value Reference Range Comments SODIUM (BEAKER) (test eyzq=727) 135 meq/L 135-148 POTASSIUM-STAT [id number] 12:41:00 Test Item Value Reference Range Comments POTASSIUM (BEAKER) (test hiuf=424) 4.8 meq/L 3.6-5.5 CALCIUM, [id number] 12:41:00 Test Item Value Reference Range Comments CALCIUM IONIZED (BEAKER) (test cvdt=529) 1.08 mmol/L 1.12-1.27 PH, BLOOD (BEAKER) (test amll=0399) 7.38 CALCIUM, [id number] 12:21:00 Test Item Value Reference Range Comments CALCIUM IONIZED (BEAKER) (test cjan=427) 1.11 mmol/L 1.12-1.27 PH, BLOOD (BEAKER) (test earf=7114) 7.34 HEMOGLOBIN-STAT [id number] 12:21:00 Test Item Value Reference Range Comments HEMOGLOBIN (BEAKER) (test edyf=544) 8.2 g/dL 12.0-15.0 HEMATOCRIT-STAT [id number] 12:21:00 Test Item Value Reference Range Comments HEMATOCRIT (BEAKER) (test iotn=309) 24.0 % 36.0-45.0 BLOOD GAS, [id number] 12:21:00 Test Item Value Reference Range Comments PH ARTERIAL (BEAKER) (test mcno=510) 7.36 7.35-7.45 PCO2 ARTERIAL (BEAKER) (test dekk=393) 49 mmHg 35-45 PO2 ARTERIAL (BEAKER) (test kkvk=723) 394 mmHg 80-90 O2 SATURATION ARTERIAL (BEAKER) (test aqbi=034) 99.8 % 96.0-97.0 HCO3 ARTERIAL (BEAKER) (test ksss=313) 27 mmol/L 21-29 BASE EXCESS ARTERIAL (BEAKER) (test tktd=558) 1.3 mmol/L -2.0-3.0 PATIENT TEMPERATURE (BEAKER) (test ecpw=6521) 36.0 C FIO2 (BEAKER) (test rxuc=6358) 100.0 % HGB/HCT (H&H) - STAT [id number] 12:21:00 Test Item Value Reference Range Comments HEMOGLOBIN (BEAKER) (test tvvy=907) 8.2 GM/DL 12.0-15.0 HEMATOCRIT (BEAKER) (test gggh=583) 24.0 % 36.0-45.0 GLUCOSE-STAT [id number] 12:19:00 Test Item Value Reference Range Comments GLUCOSE RANDOM (BEAKER) (test uogl=402) 105 mg/dL 70-110 SODIUM NA-STAT [id number] 12:19:00 Test Item Value Reference Range Comments SODIUM (BEAKER) (test irzh=635) 136 meq/L 135-148 POTASSIUM-STAT [id number] 12:19:00 Test Item Value Reference Range Comments POTASSIUM (BEAKER) (test zsch=057) 4.3 meq/L 3.6-5.5 GLUCOSE-STAT [id number] 12:00:00 Test Item Value Reference Range Comments GLUCOSE RANDOM (BEAKER) (test demk=907) 105 mg/dL 70-110 SODIUM NA-STAT [id number] 12:00:00 Test Item Value Reference Range Comments SODIUM (BEAKER) (test cnqi=599) 138 meq/L 135-148 POTASSIUM-STAT [id number] 12:00:00 Test Item Value Reference Range Comments POTASSIUM (BEAKER) (test uoft=411) 4.6 meq/L 3.6-5.5 BLOOD GAS, [id number] 12:00:00 Test Item Value Reference Range Comments PH ARTERIAL (BEAKER) (test iofz=118) 7.35 7.35-7.45 PCO2 ARTERIAL (BEAKER) (test snli=897) 50 mmHg 35-45 PO2 ARTERIAL (BEAKER) (test zail=185) 345 mmHg 80-90 O2 SATURATION ARTERIAL (BEAKER) (test smmt=326) 99.7 % 96.0-97.0 HCO3 ARTERIAL (BEAKER) (test guen=363) 27 mmol/L 21-29 BASE EXCESS ARTERIAL (BEAKER) (test ehdl=240) 0.9 mmol/L -2.0-3.0 PATIENT TEMPERATURE (BEAKER) (test hogg=8286) 36.0 C FIO2 (BEAKER) (test isjn=3953) 100.0 % HGB/HCT (H&H) - STAT [id number] 12:00:00 Test Item Value Reference Range Comments HEMOGLOBIN (BEAKER) (test cjad=962) 8.3 g/dL 12.0-15.0 HEMATOCRIT (BEAKER) (test ajhm=762) 24.0 % 36.0-45.0 CALCIUM, [id number] 12:00:00 Test Item Value Reference Range Comments CALCIUM IONIZED (BEAKER) (test zrhf=054) 1.09 mmol/L 1.12-1.27 PH, BLOOD (BEAKER) (test fdrx=2209) 7.33 CBC W/PLT COUNT & AUTO [id number] 09:45:00 Test Item Value Reference Range Comments WHITE BLOOD CELL COUNT (BEAKER) (test ovtf=601) 10.0 K/ L 3.5-10.5 RED BLOOD CELL COUNT (BEAKER) (test yyat=300) 2.48 M/ L 3.93-5.22 HEMOGLOBIN (BEAKER) (test ghff=447) 7.2 GM/DL 11.2-15.7 HEMATOCRIT (BEAKER) (test btox=905) 22.4 % 34.1-44.9 MEAN CORPUSCULAR VOLUME (BEAKER) (test gmxq=615) 90.3 fL 79.4-94.8 MEAN CORPUSCULAR HEMOGLOBIN (BEAKER) (test 29.0 pg 25.6-32.2 zdgf=873) MEAN CORPUSCULAR HEMOGLOBIN CONC (BEAKER) (test 32.1 GM/DL 32.2-35.5 hgjv=661) RED CELL DISTRIBUTION WIDTH (BEAKER) (test 14.8 % 11.7-14.4 zbgu=822) PLATELET COUNT (BEAKER) (test zyvq=995) 503 K/CU MM 150-450 MEAN PLATELET VOLUME (BEAKER) (test bvpj=888) 8.8 fL 9.4-12.3 NUCLEATED RED BLOOD CELLS (BEAKER) (test 0 /100 WBC 0-0 oofx=624) (CELLAVISION MANUAL DIFF)2018-01-13 09:45:00 Test Item Value Reference Range Comments NEUTROPHILS - REL (CELLAVISION)(BEAKER) (test 71 % qekn=9658) LYMPHOCYTES - REL (CELLAVISION)(BEAKER) (test 12 % kzfn=4771) MONOCYTES - REL (CELLAVISION)(BEAKER) (test 13 % qcus=7427) BASOPHILS - REL (CELLAVISION)(BEAKER) (test 2 % fvgv=8986) MYELOCYTES - REL (CELLAVISION)(BEAKER) (test 2 % 0-0 mzsb=9487) NEUTROPHILS - ABS (CELLAVISION)(BEAKER) (test 7.10 K/ul 1.56-6.13 rmyk=0436) LYMPHOCYTES - ABS (CELLAVISION)(BEAKER) (test 1.20 K/ul 1.18-3.74 ybtq=4312) MONOCYTES - ABS (CELLAVISION)(BEAKER) (test 1.30 K/uL 0.24-0.36 jduo=6516) BASOPHILS - ABS (CELLAVISION)(BEAKER) (test 0.20 K/uL 0.01-0.08 veqi=4083) MYELOCYTES-ABS (CELLAVISION)(BEAKER) (test 0.20 K/uL 0.00-0.00 hkbj=2953) TOTAL COUNTED (BEAKER) (test nbap=0806) 100 WBC MORPHOLOGY (BEAKER) (test jeme=280) Normal PLT MORPHOLOGY (BEAKER) (test aoja=857) Normal POLYCHROMATOPHILLIC RBCS(BEAKER) (test czxo=117) 1+ few ANISOCYTOSIS (BEAKER) (test eqww=721) 1+ few MICROCYTES (BEAKER) (test sbvu=159) 1+ few POIKILOCYTES (BEAKER) (test xwvi=146) 1+ few ARTIFACT (CELLAVISION)(BEAKER) (test rqpd=3541) Present PLATELET CONCENTRATION (CELLAVISION)(BEAKER) (test Increased xjyo=5500) Received comment: User comments: Slide comments: SCREEN, [id number] 09:06:00 Test Item Value Reference Range Comments TEST URINE (BEAKER) (test aizb=165) Negative BASIC METABOLIC [id number] 07:42:00 Test Item Value Reference Range Comments SODIUM (BEAKER) (test 134 meq/L 136-145 bnyn=566) POTASSIUM (BEAKER) (test 3.8 meq/L 3.5-5.1 yxno=832) CHLORIDE (BEAKER) (test 102 meq/L 98-107 xqvk=156) CO2 (BEAKER) (test 26 meq/L 22-29 ifsa=368) BLOOD UREA NITROGEN 18 mg/dL 7-21 (BEAKER) (test dxsx=867) CREATININE (BEAKER) (test 2.51 mg/dL 0.57-1.25 xfdm=431) GLUCOSE RANDOM (BEAKER) 97 mg/dL 70-105 (test dccm=111) CALCIUM (BEAKER) (test 8.8 mg/dL 8.4-10.2 fuhf=378) EGFR (BEAKER) (test 21 mL/min/1.73 sq m ESTIMATED GFR IS NOT xagq=1215) ACCURATE CREATININE CLEARANCE IN PREDICTING GLOMERULAR FILTRATION RATE. ESTIMATED GFR IS NOT APPLICABLE FOR DIALYSIS PATIENTS. [id number] 07:40:00 Test Item Value Reference Range Comments PHOSPHORUS (BEAKER) (test heoc=523) 3.7 mg/dL 2.3-4.7 [id number] 07:40:00 Test Item Value Reference Range Comments MAGNESIUM (BEAKER) (test tyvd=428) 1.8 mg/dL 1.6-2.6 LACTIC ACID, ARTERIAL, WHOLE [id number] 06:57:00 Test Item Value Reference Range Comments LACTATE BLOOD ARTERIAL (2) (BEAKER) (test 0.7 mmol/L 0.5-2.2 ldft=7705) Effective 11/12/2015: Units/Reference Range ChangeNew: 0.5-2.2 mmol/L Previous: 5 -20 mg/[id number] 06:54:00 Test Item Value Reference Range Comments PARTIAL THROMBOPLASTIN TIME (BEAKER) (test 45.0 seconds 22.5-36.0 qnao=942) HEPATITIS B SURFACE [id number] 21:25:00 Test Item Value Reference Range Comments HEPATITIS B SURFACE ANTIGEN (2) (BEAKER) (test Nonreactive Nonreactive abmr=6349) CBC W/PLT COUNT & AUTO [id number] 08:29:00 Test Item Value Reference Range Comments WHITE BLOOD CELL COUNT (BEAKER) (test sauq=202) 10.2 K/ L 3.5-10.5 RED BLOOD CELL COUNT (BEAKER) (test vqxw=522) 2.55 M/ L 3.93-5.22 HEMOGLOBIN (BEAKER) (test gqan=918) 7.3 GM/DL 11.2-15.7 HEMATOCRIT (BEAKER) (test cgqh=622) 23.2 % 34.1-44.9 MEAN CORPUSCULAR VOLUME (BEAKER) (test mseo=275) 91.0 fL 79.4-94.8 MEAN CORPUSCULAR HEMOGLOBIN (BEAKER) (test 28.6 pg 25.6-32.2 vzfl=508) MEAN CORPUSCULAR HEMOGLOBIN CONC (BEAKER) (test 31.5 GM/DL 32.2-35.5 jvld=336) RED CELL DISTRIBUTION WIDTH (BEAKER) (test 15.2 % 11.7-14.4 obbf=333) PLATELET COUNT (BEAKER) (test uois=332) 435 K/CU MM 150-450 MEAN PLATELET VOLUME (BEAKER) (test wfgb=305) 8.7 fL 9.4-12.3 NUCLEATED RED BLOOD CELLS (BEAKER) (test 0 /100 WBC 0-0 kifu=730) (CELLAVISION MANUAL DIFF)2018-01-12 08:29:00 Test Item Value Reference Range Comments NEUTROPHILS - REL (CELLAVISION)(BEAKER) (test 64 % cfcy=9710) LYMPHOCYTES - REL (CELLAVISION)(BEAKER) (test 14 % gzzv=3121) MONOCYTES - REL (CELLAVISION)(BEAKER) (test 15 % cnho=8681) EOSINOPHILS - REL (CELLAVISION)(BEAKER) (test 2 % ypar=1733) BASOPHILS - REL (CELLAVISION)(BEAKER) (test 1 % hffj=5242) METAMYELOCYTES - REL (CELLAVISION)(BEAKER) (test 1 % 0-0 mdhx=3177) MYELOCYTES - REL (CELLAVISION)(BEAKER) (test 3 % 0-0 lgsz=6610) NEUTROPHILS - ABS (CELLAVISION)(BEAKER) (test 6.53 K/ul 1.56-6.13 pwed=6850) LYMPHOCYTES - ABS (CELLAVISION)(BEAKER) (test 1.43 K/ul 1.18-3.74 wyhz=5771) MONOCYTES - ABS (CELLAVISION)(BEAKER) (test 1.53 K/uL 0.24-0.36 wxud=7037) EOSINOPHILS - ABS (CELLAVISION)(BEAKER) (test 0.20 K/uL 0.04-0.36 hkkl=7878) BASOPHILS - ABS (CELLAVISION)(BEAKER) (test 0.10 K/uL 0.01-0.08 pkxe=7247) METAMYELOCYTES - ABS (CELLAVISION)(BEAKER) (test 0.10 K/uL 0.00-0.00 gmmv=7439) MYELOCYTES-ABS (CELLAVISION)(BEAKER) (test 0.31 K/uL 0.00-0.00 tnkj=5556) TOTAL COUNTED (BEAKER) (test mnty=5685) 100 MANUAL NRBC PER 100 CELLS (BEAKER) (test 1 /100 WBC 0-0 oezt=4606) RBC MORPHOLOGY (BEAKER) (test jpyz=183) Normal PLT MORPHOLOGY (BEAKER) (test ppuw=137) Normal SMUDGE CELLS (BEAKER) (test rise=0640) Present PLATELET CONCENTRATION (CELLAVISION)(BEAKER) Adequate (test odyw=3828) Received comment: User comments: Slide comments:LACTIC ACID, VENOUS, WHOLE [id number] 06:59:00 Test Item Value Reference Range Comments LACTATE BLOOD VENOUS (2) (BEAKER) (test 0.5 mmol/L 0.5-2.2 jrzg=2598) Effective 11/12/2015: Units/Reference Range ChangeNew: 0.5-2.2 mmol/L Previous: 5 -20 mg/dLBASIC METABOLIC [id number] 05:22:00 Test Item Value Reference Range Comments SODIUM (BEAKER) (test 132 meq/L 136-145 bhso=088) POTASSIUM (BEAKER) (test 4.0 meq/L 3.5-5.1 hpke=963) CHLORIDE (BEAKER) (test 99 meq/L 98-107 kbyi=104) CO2 (BEAKER) (test 24 meq/L 22-29 jjiu=734) BLOOD UREA NITROGEN 46 mg/dL 7-21 (BEAKER) (test pjes=606) CREATININE (BEAKER) (test 4.45 mg/dL 0.57-1.25 hyre=029) GLUCOSE RANDOM (BEAKER) 98 mg/dL 70-105 (test vqba=479) CALCIUM (BEAKER) (test 8.2 mg/dL 8.4-10.2 pqcv=103) EGFR (BEAKER) (test 11 mL/min/1.73 sq m ESTIMATED GFR IS NOT tvpl=6809) ACCURATE CREATININE CLEARANCE IN PREDICTING GLOMERULAR FILTRATION RATE. ESTIMATED GFR IS NOT APPLICABLE FOR DIALYSIS PATIENTS. [id number] 05:03:00 Test Item Value Reference Range Comments PARTIAL THROMBOPLASTIN TIME (BEAKER) (test 41.7 seconds 22.5-36.0 vikl=939) [id number] 21:25:00 Test Item Value Reference Range Comments PARTIAL THROMBOPLASTIN TIME (BEAKER) (test 37.9 seconds 22.5-36.0 wmgf=570) [id number] 18:21:00 Test Item Value Reference Range Comments PARTIAL THROMBOPLASTIN TIME (BEAKER) (test > seconds 22.5-36.0 psux=573) HEMOGLOBIN AND [id number] 13:26:00 Test Item Value Reference Range Comments HEMOGLOBIN (BEAKER) (test cwpw=483) 7.1 GM/DL 11.2-15.7 HEMATOCRIT (BEAKER) (test xqut=885) 22.6 % 34.1-44.9 [id number] 09:10:00 Test Item Value Reference Range Comments PARTIAL THROMBOPLASTIN TIME (BEAKER) (test 40.5 seconds 22.5-36.0 layc=918) CBC W/PLT COUNT & AUTO [id number] 08:47:00 Test Item Value Reference Range Comments WHITE BLOOD CELL COUNT (BEAKER) (test acef=202) 13.0 K/ L 3.5-10.5 RED BLOOD CELL COUNT (BEAKER) (test aeid=935) 2.41 M/ L 3.93-5.22 HEMOGLOBIN (BEAKER) (test xfkp=335) 6.8 GM/DL 11.2-15.7 HEMATOCRIT (BEAKER) (test ibfa=073) 22.6 % 34.1-44.9 MEAN CORPUSCULAR VOLUME (BEAKER) (test yfwt=624) 93.8 fL 79.4-94.8 MEAN CORPUSCULAR HEMOGLOBIN (BEAKER) (test 28.2 pg 25.6-32.2 cdaz=379) MEAN CORPUSCULAR HEMOGLOBIN CONC (BEAKER) (test 30.1 GM/DL 32.2-35.5 hyed=452) RED CELL DISTRIBUTION WIDTH (BEAKER) (test 15.9 % 11.7-14.4 buaf=860) PLATELET COUNT (BEAKER) (test dsxz=576) 369 K/CU MM 150-450 MEAN PLATELET VOLUME (BEAKER) (test igwb=281) 9.4 fL 9.4-12.3 NUCLEATED RED BLOOD CELLS (BEAKER) (test 0 /100 WBC 0-0 mebv=069) (CELLAVISION MANUAL DIFF)2018-01-11 08:47:00 Test Item Value Reference Range Comments NEUTROPHILS - REL (CELLAVISION)(BEAKER) (test 75 % lbfa=6995) LYMPHOCYTES - REL (CELLAVISION)(BEAKER) (test 9 % yxgw=0893) MONOCYTES - REL (CELLAVISION)(BEAKER) (test 10 % txcw=5586) EOSINOPHILS - REL (CELLAVISION)(BEAKER) (test 1 % fxzn=6679) MYELOCYTES - REL (CELLAVISION)(BEAKER) (test 5 % 0-0 gtrc=9596) NEUTROPHILS - ABS (CELLAVISION)(BEAKER) (test 9.75 K/ul 1.56-6.13 waqo=8979) LYMPHOCYTES - ABS (CELLAVISION)(BEAKER) (test 1.17 K/ul 1.18-3.74 azow=5033) MONOCYTES - ABS (CELLAVISION)(BEAKER) (test 1.30 K/uL 0.24-0.36 qdkc=8384) EOSINOPHILS - ABS (CELLAVISION)(BEAKER) (test 0.13 K/uL 0.04-0.36 dcwz=8405) MYELOCYTES-ABS (CELLAVISION)(BEAKER) (test 0.65 K/uL 0.00-0.00 ztob=1676) TOTAL COUNTED (BEAKER) (test zpmi=7884) 100 RBC MORPHOLOGY (BEAKER) (test brds=546) Normal WBC MORPHOLOGY (BEAKER) (test sbmg=982) Normal PLT MORPHOLOGY (BEAKER) (test aqip=033) Normal ARTIFACT (CELLAVISION)(BEAKER) (test lski=3454) Present PLATELET CONCENTRATION (CELLAVISION)(BEAKER) (test Adequate vyek=2493) Received comment: User comments: Slide comments:BASIC METABOLIC [id number] 07:00:00 Test Item Value Reference Range Comments SODIUM (BEAKER) (test 132 meq/L 136-145 nrvy=944) POTASSIUM (BEAKER) (test 4.4 meq/L 3.5-5.1 nqax=502) CHLORIDE (BEAKER) (test 95 meq/L 98-107 dnzg=609) CO2 (BEAKER) (test 22 meq/L 22-29 gfll=331) BLOOD UREA NITROGEN 40 mg/dL 7-21 (BEAKER) (test mbdr=678) CREATININE (BEAKER) (test 4.03 mg/dL 0.57-1.25 ibaq=326) GLUCOSE RANDOM (BEAKER) 149 mg/dL 70-105 (test gqpq=809) CALCIUM (BEAKER) (test 7.9 mg/dL 8.4-10.2 cmbr=067) EGFR (BEAKER) (test 12 mL/min/1.73 sq m ESTIMATED GFR IS NOT fcuq=5042) ACCURATE CREATININE CLEARANCE IN PREDICTING GLOMERULAR FILTRATION RATE. ESTIMATED GFR IS NOT APPLICABLE FOR DIALYSIS PATIENTS. [id number] 06:52:00 Test Item Value Reference Range Comments PHOSPHORUS (BEAKER) (test nxdo=225) 5.8 mg/dL 2.3-4.7 [id number] 06:52:00 Test Item Value Reference Range Comments MAGNESIUM (BEAKER) (test usdw=910) 2.5 mg/dL 1.6-2.6 [id number] 06:38:00 Test Item Value Reference Range Comments PARTIAL THROMBOPLASTIN TIME (BEAKER) (test > seconds 22.5-36.0 gzlj=086) RAD, CHEST, 1 VIEW, NON [id number] 04:17:00Reason for exam:-> IntubatedShould this be performed at the bedside?->YesFINAL REPORT RAD, CHEST, 1 VIEW, NON DEPT INDICATION: Intubated COMPARISON: January 08, 2018 FINDINGS: Portable frontal view of the chest. IMPRESSION: Support Lines: Endotracheal and feeding tubes have been removed. The venous access is stable. Lungs and pleura: Increasing confluence of patchy airspace disease on the left. Small volume bilateral effusions are present. No pneumothorax.Heart and mediastinum: Discernible contours are unchanged.Additional findings: None. Signed: JR Aguilar Robert MDReport Verified Date/Time: 01/10/2018 04:17:46 Reading Location: [address] Reading Room Electronically signed by: KATHARINE AGUILAR on 04:17 [id number] 04:15:00 Test Item Value Reference Range Comments D-DIMER QUANTITATIVE (BEAKER) (test natw=246) 6.95 MG/L FEU <0.50 Intended Use: The D-Dimer Assay can be used to aid in the diagnosis of Deep Vein Thrombosis (DVT) and Pulmonary Embolism Disease (PED).In patients with low pre-test probability, various studies concerning STA Liatest D-dimer test have reported that with a cutoff value of 0.50 MG/L FEU, the Negative Predictive Value (NPV) regarding the exclusion of thrombosis is within 95-100% range.[id number] 04:07:00 Test Item Value Reference Range Comments PARTIAL THROMBOPLASTIN TIME (BEAKER) (test 84.6 seconds 22.5-36.0 xezn=352) BASIC METABOLIC [id number] 04:06:00 Test Item Value Reference Range Comments SODIUM (BEAKER) (test 135 meq/L 136-145 ryyf=386) POTASSIUM (BEAKER) (test 4.5 meq/L 3.5-5.1 voaa=715) CHLORIDE (BEAKER) (test 100 meq/L 98-107 nnsi=349) CO2 (BEAKER) (test 25 meq/L 22-29 ddvd=244) BLOOD UREA NITROGEN 29 mg/dL 7-21 (BEAKER) (test ytnr=524) CREATININE (BEAKER) (test 2.94 mg/dL 0.57-1.25 hytx=888) GLUCOSE RANDOM (BEAKER) 102 mg/dL 70-105 (test tjyr=945) CALCIUM (BEAKER) (test 8.2 mg/dL 8.4-10.2 qepv=462) EGFR (BEAKER) (test 17 mL/min/1.73 sq m ESTIMATED GFR IS NOT coxg=9001) ACCURATE CREATININE CLEARANCE IN PREDICTING GLOMERULAR FILTRATION RATE. ESTIMATED GFR IS NOT APPLICABLE FOR DIALYSIS PATIENTS. LACTIC ACID, ARTERIAL, WHOLE [id number] 04:05:00 Test Item Value Reference Range Comments LACTATE BLOOD ARTERIAL (2) (BEAKER) (test 0.5 mmol/L 0.5-2.2 izrl=5251) Effective 11/12/2015: Units/Reference Range ChangeNew: 0.5-2.2 mmol/L Previous: 5 -20 mg/[id number] 04:05:00 Test Item Value Reference Range Comments PHOSPHORUS (BEAKER) (test cacl=614) 4.3 mg/dL 2.3-4.7 [id number] 04:05:00 Test Item Value Reference Range Comments MAGNESIUM (BEAKER) (test bzec=272) 2.4 mg/dL 1.6-2.6 LACTATE DEHYDROGENASE (LDH)2018-01-10 04:05:00 Test Item Value Reference Range Comments LACTATE DEHYDROGENASE (BEAKER) (test drpy=507) 348 U/L 125-220 CBC W/PLT COUNT & AUTO [id number] 03:49:00 Test Item Value Reference Range Comments WHITE BLOOD CELL COUNT (BEAKER) (test ltnn=913) 15.3 K/ L 3.5-10.5 RED BLOOD CELL COUNT (BEAKER) (test pqrk=096) 2.45 M/ L 3.93-5.22 HEMOGLOBIN (BEAKER) (test rtnd=733) 7.2 GM/DL 11.2-15.7 HEMATOCRIT (BEAKER) (test uoeh=861) 22.6 % 34.1-44.9 MEAN CORPUSCULAR VOLUME (BEAKER) (test ztzs=632) 92.2 fL 79.4-94.8 MEAN CORPUSCULAR HEMOGLOBIN (BEAKER) (test 29.4 pg 25.6-32.2 wewq=821) MEAN CORPUSCULAR HEMOGLOBIN CONC (BEAKER) (test 31.9 GM/DL 32.2-35.5 drbs=128) RED CELL DISTRIBUTION WIDTH (BEAKER) (test 15.9 % 11.7-14.4 zbaj=279) PLATELET COUNT (BEAKER) (test euhc=014) 308 K/CU MM 150-450 MEAN PLATELET VOLUME (BEAKER) (test merb=604) 9.0 fL 9.4-12.3 NUCLEATED RED BLOOD CELLS (BEAKER) (test 0 /100 WBC 0-0 ugnp=876) NEUTROPHILS RELATIVE PERCENT (BEAKER) (test 70 % nfrs=653) LYMPHOCYTES RELATIVE PERCENT (BEAKER) (test 10 % cxur=005) MONOCYTES RELATIVE PERCENT (BEAKER) (test 15 % jlmv=375) EOSINOPHILS RELATIVE PERCENT (BEAKER) (test 1 % zbjh=721) BASOPHILS RELATIVE PERCENT (BEAKER) (test 0 % dxij=419) NEUTROPHILS ABSOLUTE COUNT (BEAKER) (test 10.71 K/ L 1.56-6.13 tfxr=777) LYMPHOCYTES ABSOLUTE COUNT (BEAKER) (test 1.46 K/ L 1.18-3.74 xntu=440) MONOCYTES ABSOLUTE COUNT (BEAKER) (test 2.29 K/ L 0.24-0.36 yvbz=148) EOSINOPHILS ABSOLUTE COUNT (BEAKER) (test 0.12 K/ L 0.04-0.36 aycf=567) BASOPHILS ABSOLUTE COUNT (BEAKER) (test 0.05 K/ L 0.01-0.08 tkoc=944) IMMATURE GRANULOCYTES-RELATIVE PERCENT (BEAKER) 4 % 0-1 (test knqj=2696) VANCOMYCIN LEVEL, [id number] 15:26:00 Test Item Value Reference Range Comments VANCOMYCIN TROUGH (BEAKER) (test lwub=770) 14.7 ug/mL 10.0-20.0 CBC W/PLT COUNT & AUTO [id number] 07:34:00 Test Item Value Reference Range Comments WHITE BLOOD CELL COUNT (BEAKER) (test qvvt=698) 16.7 K/ L 3.5-10.5 RED BLOOD CELL COUNT (BEAKER) (test oqgr=922) 2.49 M/ L 3.93-5.22 HEMOGLOBIN (BEAKER) (test janq=704) 7.3 GM/DL 11.2-15.7 HEMATOCRIT (BEAKER) (test ckok=041) 23.1 % 34.1-44.9 MEAN CORPUSCULAR VOLUME (BEAKER) (test xxda=604) 92.8 fL 79.4-94.8 MEAN CORPUSCULAR HEMOGLOBIN (BEAKER) (test 29.3 pg 25.6-32.2 ches=574) MEAN CORPUSCULAR HEMOGLOBIN CONC (BEAKER) (test 31.6 GM/DL 32.2-35.5 ogaj=591) RED CELL DISTRIBUTION WIDTH (BEAKER) (test 16.2 % 11.7-14.4 unst=902) PLATELET COUNT (BEAKER) (test tbok=339) 317 K/CU MM 150-450 MEAN PLATELET VOLUME (BEAKER) (test cdfk=812) 9.5 fL 9.4-12.3 NUCLEATED RED BLOOD CELLS (BEAKER) (test 0 /100 WBC 0-0 jgts=461) (CELLAVISION MANUAL DIFF)2018-01-09 07:34:00 Test Item Value Reference Range Comments NEUTROPHILS - REL (CELLAVISION)(BEAKER) (test 71 % rbbm=0299) LYMPHOCYTES - REL (CELLAVISION)(BEAKER) (test 5 % qcxh=0087) MONOCYTES - REL (CELLAVISION)(BEAKER) (test 9 % oysl=4664) EOSINOPHILS - REL (CELLAVISION)(BEAKER) (test 1 % hnsl=8622) METAMYELOCYTES - REL (CELLAVISION)(BEAKER) (test 1 % 0-0 rrgz=9985) MYELOCYTES - REL (CELLAVISION)(BEAKER) (test 1 % 0-0 tuym=3290) BANDS - REL (CELLAVISION)(BEAKER) (test 12 % 0-10 iwut=1697) NEUTROPHILS - ABS (CELLAVISION)(BEAKER) (test 11.86 K/ul 1.56-6.13 gelu=1153) LYMPHOCYTES - ABS (CELLAVISION)(BEAKER) (test 0.84 K/ul 1.18-3.74 ftjt=2895) MONOCYTES - ABS (CELLAVISION)(BEAKER) (test 1.50 K/uL 0.24-0.36 bfao=3889) EOSINOPHILS - ABS (CELLAVISION)(BEAKER) (test 0.17 K/uL 0.04-0.36 kaar=2528) METAMYELOCYTES - ABS (CELLAVISION)(BEAKER) (test 0.17 K/uL 0.00-0.00 apto=3453) MYELOCYTES-ABS (CELLAVISION)(BEAKER) (test 0.17 K/uL 0.00-0.00 uojj=2908) BANDS - ABS (CELLAVISION)(BEAKER) (test 2.00 K/uL 0.00-0.80 fofb=7714) TOTAL COUNTED (BEAKER) (test qiif=8688) 100 RBC MORPHOLOGY (BEAKER) (test xnhr=096) Normal WBC MORPHOLOGY (BEAKER) (test jghd=858) Normal PLT MORPHOLOGY (BEAKER) (test qzzl=751) Normal ARTIFACT (CELLAVISION)(BEAKER) (test ysrt=0646) Present PLATELET CONCENTRATION (CELLAVISION)(BEAKER) Adequate (test jpzm=4381) Received comment: User comments: Slide comments:BASIC METABOLIC [id number] 06:46:00 Test Item Value Reference Range Comments SODIUM (BEAKER) (test 135 meq/L 136-145 vmmi=446) POTASSIUM (BEAKER) (test 4.5 meq/L 3.5-5.1 iake=864) CHLORIDE (BEAKER) (test 102 meq/L 98-107 bxvt=006) CO2 (BEAKER) (test 26 meq/L 22-29 ckhl=453) BLOOD UREA NITROGEN 16 mg/dL 7-21 (BEAKER) (test fqga=255) CREATININE (BEAKER) (test 1.59 mg/dL 0.57-1.25 gsky=422) GLUCOSE RANDOM (BEAKER) 98 mg/dL 70-105 (test fiae=820) CALCIUM (BEAKER) (test 8.7 mg/dL 8.4-10.2 vmbt=078) EGFR (BEAKER) (test 35 mL/min/1.73 sq m ESTIMATED GFR IS NOT dydz=7799) ACCURATE CREATININE CLEARANCE IN PREDICTING GLOMERULAR FILTRATION RATE. ESTIMATED GFR IS NOT APPLICABLE FOR DIALYSIS PATIENTS. LACTATE DEHYDROGENASE (LDH)2018-01-09 06:44:00 Test Item Value Reference Range Comments LACTATE DEHYDROGENASE (BEAKER) (test uhiz=569) 398 U/L 125-220 BLOOD GAS, [id number] 06:37:00 Test Item Value Reference Range Comments PH ARTERIAL (BEAKER) (test qmdc=288) 7.41 7.35-7.45 PCO2 ARTERIAL (BEAKER) (test iheb=760) 46 mmHg 35-45 PO2 ARTERIAL (BEAKER) (test xzfm=939) 95 mmHg 80-90 O2 SATURATION ARTERIAL (BEAKER) (test hfur=718) 97.4 % 96.0-97.0 HCO3 ARTERIAL (BEAKER) (test zrsb=362) 29 mmol/L 21-29 BASE EXCESS ARTERIAL (BEAKER) (test wxdk=841) 3.5 mmol/L -2.0-3.0 PATIENT TEMPERATURE (BEAKER) (test uiqb=0673) 36.5 C FIO2 (BEAKER) (test vwbr=8794) 36.0 % LACTIC ACID, ARTERIAL, WHOLE [id number] 06:37:00 Test Item Value Reference Range Comments LACTATE BLOOD ARTERIAL (2) (BEAKER) (test 0.5 mmol/L 0.5-2.2 duuy=3069) Effective 11/12/2015: Units/Reference Range ChangeNew: 0.5-2.2 mmol/L Previous: 5 -20 mg/[id number] 06:34:00 Test Item Value Reference Range Comments D-DIMER QUANTITATIVE (BEAKER) (test fekm=799) 4.90 MG/L FEU <0.50 Intended Use: The D-Dimer Assay can be used to aid in the diagnosis of Deep Vein Thrombosis (DVT) and Pulmonary Embolism Disease (PED).In patients with low pre-test probability, various studies concerning STA Liatest D-dimer test have reported that with a cutoff value of 0.50 MG/L FEU, the Negative Predictive Value (NPV) regarding the exclusion of thrombosis is within 95-100% range.[id number] 06:26:00 Test Item Value Reference Range Comments PARTIAL THROMBOPLASTIN TIME (BEAKER) (test 79.8 seconds 22.5-36.0 qyck=258) BLOOD [id number] 06:00:00 Test Item Value Reference Range Comments CULTURE (BEAKER) (test dxfx=7870) No growth in 5 days BLOOD [id number] 06:00:00 Test Item Value Reference Range Comments CULTURE (BEAKER) (test geds=4554) No growth in 5 days TROPONIN [id number] 00:34:00 Test Item Value Reference Range Comments TROPONIN I (BEAKER) (test ggud=125) < ng/mL 0.00-0.03 Troponin I (TnI) levels must be interpreted [...] failure, acidosis, acute neurological disease, and persistent tachyarrhythmia.[id number] 00:26:00 Test Item Value Reference Range Comments PHOSPHORUS (BEAKER) (test qwio=748) 2.3 mg/dL 2.3-4.7 [id number] 00:26:00 Test Item Value Reference Range Comments MAGNESIUM (BEAKER) (test zgve=691) 1.7 mg/dL 1.6-2.6 BASIC METABOLIC [id number] 00:26:00 Test Item Value Reference Range Comments SODIUM (BEAKER) (test 134 meq/L 136-145 jpno=652) POTASSIUM (BEAKER) (test 4.4 meq/L 3.5-5.1 nlsm=681) CHLORIDE (BEAKER) (test 101 meq/L 98-107 fooi=143) CO2 (BEAKER) (test 25 meq/L 22-29 dssz=923) BLOOD UREA NITROGEN 18 mg/dL 7-21 (BEAKER) (test fugm=519) CREATININE (BEAKER) (test 1.74 mg/dL 0.57-1.25 pwzt=500) GLUCOSE RANDOM (BEAKER) 104 mg/dL 70-105 (test iyap=101) CALCIUM (BEAKER) (test 8.7 mg/dL 8.4-10.2 xtrp=057) EGFR (BEAKER) (test 31 mL/min/1.73 sq m ESTIMATED GFR IS NOT mjkl=5482) ACCURATE CREATININE CLEARANCE IN PREDICTING GLOMERULAR FILTRATION RATE. ESTIMATED GFR IS NOT APPLICABLE FOR DIALYSIS PATIENTS. [id number] 22:18:00 Test Item Value Reference Range Comments PARTIAL THROMBOPLASTIN TIME (BEAKER) (test 76.0 seconds 22.5-36.0 aind=746) C. DIFFICILE GDH [id number] 15:58:00 Test Item Value Reference Range Comments CDT TOXIN (test Negative Negative cboj=[id number]) CDT GDH ANTIGEN (test Negative Negative No indication of Clostridium qmqw=[id number]) difficile infection and no colonization. Discontinue enteric isolation and therapy. Testing performed by [employer] Rapid Cassette Assay. For GDH, published sensitivity of the assay is 98.7% compared to cytotoxicity testing. For Toxin AB, published sensitivity is 87.8% and specificity 99.4% compared to cytotoxicity testing.Verification of kit performance was done by the [facility] prior to clinical use.[id number] 14:59:00 Test Item Value Reference Range Comments PARTIAL THROMBOPLASTIN TIME (BEAKER) (test 74.2 seconds 22.5-36.0 vsba=118) OCCULT BLOOD, [id number] 08:18:00 Test Item Value Reference Range Comments FECAL OCCULT BLOOD (BEAKER) (test dagl=262) Positive Negative [id number] 08:17:00 Test Item Value Reference Range Comments PARTIAL THROMBOPLASTIN TIME (BEAKER) (test 61.5 seconds 22.5-36.0 btdf=615) CBC W/PLT COUNT & AUTO [id number] 08:14:00 Test Item Value Reference Range Comments WHITE BLOOD CELL COUNT (BEAKER) (test hkzo=550) 21.2 K/ L 3.5-10.5 RED BLOOD CELL COUNT (BEAKER) (test ufou=067) 2.77 M/ L 3.93-5.22 HEMOGLOBIN (BEAKER) (test jptw=783) 8.1 GM/DL 11.2-15.7 HEMATOCRIT (BEAKER) (test icza=599) 25.8 % 34.1-44.9 MEAN CORPUSCULAR VOLUME (BEAKER) (test zohm=652) 93.1 fL 79.4-94.8 MEAN CORPUSCULAR HEMOGLOBIN (BEAKER) (test 29.2 pg 25.6-32.2 glro=211) MEAN CORPUSCULAR HEMOGLOBIN CONC (BEAKER) (test 31.4 GM/DL 32.2-35.5 tbbo=228) RED CELL DISTRIBUTION WIDTH (BEAKER) (test 16.7 % 11.7-14.4 tzgc=504) PLATELET COUNT (BEAKER) (test nlbb=062) 316 K/CU MM 150-450 MEAN PLATELET VOLUME (BEAKER) (test hyhn=469) 9.6 fL 9.4-12.3 NUCLEATED RED BLOOD CELLS (BEAKER) (test 0 /100 WBC 0-0 tvra=859) (CELLAVISION MANUAL DIFF)2018-01-08 08:14:00 Test Item Value Reference Range Comments NEUTROPHILS - REL (CELLAVISION)(BEAKER) (test 77 % nnft=5277) LYMPHOCYTES - REL (CELLAVISION)(BEAKER) (test 5 % klwk=2451) MONOCYTES - REL (CELLAVISION)(BEAKER) (test 10 % xhrl=8055) EOSINOPHILS - REL (CELLAVISION)(BEAKER) (test 1 % ipms=0768) METAMYELOCYTES - REL (CELLAVISION)(BEAKER) (test 1 % 0-0 ivrs=9049) MYELOCYTES - REL (CELLAVISION)(BEAKER) (test 1 % 0-0 gnmm=6454) BANDS - REL (CELLAVISION)(BEAKER) (test 5 % 0-10 ytvd=6573) NEUTROPHILS - ABS (CELLAVISION)(BEAKER) (test 16.32 K/ul 1.56-6.13 wiii=1092) LYMPHOCYTES - ABS (CELLAVISION)(BEAKER) (test 1.06 K/ul 1.18-3.74 cusx=1813) MONOCYTES - ABS (CELLAVISION)(BEAKER) (test 2.12 K/uL 0.24-0.36 pdti=0482) EOSINOPHILS - ABS (CELLAVISION)(BEAKER) (test 0.21 K/uL 0.04-0.36 xbdo=4680) METAMYELOCYTES - ABS (CELLAVISION)(BEAKER) (test 0.21 K/uL 0.00-0.00 rwjf=6404) MYELOCYTES-ABS (CELLAVISION)(BEAKER) (test 0.21 K/uL 0.00-0.00 zfee=5281) BANDS - ABS (CELLAVISION)(BEAKER) (test 1.06 K/uL 0.00-0.80 kdfs=3692) TOTAL COUNTED (BEAKER) (test mprh=8294) 100 RBC MORPHOLOGY (BEAKER) (test lktk=175) Normal PLT MORPHOLOGY (BEAKER) (test gmmw=655) Normal SMUDGE CELLS (BEAKER) (test bbtg=3378) Present PLATELET CONCENTRATION (CELLAVISION)(BEAKER) Adequate (test acew=2393) Received comment: User comments: Slide comments:BASIC METABOLIC [id number] 07:04:00 Test Item Value Reference Range Comments SODIUM (BEAKER) (test 135 meq/L 136-145 usze=195) POTASSIUM (BEAKER) (test 4.6 meq/L 3.5-5.1 alaf=785) CHLORIDE (BEAKER) (test 102 meq/L 98-107 rhvc=218) CO2 (BEAKER) (test 25 meq/L 22-29 bvib=748) BLOOD UREA NITROGEN 15 mg/dL 7-21 (BEAKER) (test huyz=094) CREATININE (BEAKER) (test 1.52 mg/dL 0.57-1.25 bgbh=091) GLUCOSE RANDOM (BEAKER) 135 mg/dL 70-105 (test fzmb=832) CALCIUM (BEAKER) (test 8.7 mg/dL 8.4-10.2 amsn=337) EGFR (BEAKER) (test 37 mL/min/1.73 sq m ESTIMATED GFR IS NOT uqri=8541) ACCURATE CREATININE CLEARANCE IN PREDICTING GLOMERULAR FILTRATION RATE. ESTIMATED GFR IS NOT APPLICABLE FOR DIALYSIS PATIENTS. LACTATE DEHYDROGENASE (LDH)2018-01-08 05:50:00 Test Item Value Reference Range Comments LACTATE DEHYDROGENASE (BEAKER) (test qiwk=664) 484 U/L 125-220 [id number] 05:04:00 Test Item Value Reference Range Comments D-DIMER QUANTITATIVE (BEAKER) (test xzqb=576) 6.72 MG/L FEU <0.50 Intended Use: The D-Dimer Assay can be used to aid in the diagnosis of Deep Vein Thrombosis (DVT) and Pulmonary Embolism Disease (PED).In patients with low pre-test probability, various studies concerning STA Liatest D-dimer test have reported that with a cutoff value of 0.50 MG/L FEU, the Negative Predictive Value (NPV) regarding the exclusion of thrombosis is within 95-100% range.LACTIC ACID, ARTERIAL, WHOLE [id number] 05:00:00 Test Item Value Reference Range Comments LACTATE BLOOD ARTERIAL (2) (BEAKER) (test 0.7 mmol/L 0.5-2.2 ocnd=0997) Effective 11/12/2015: Units/Reference Range ChangeNew: 0.5-2.2 mmol/L Previous: 5 -20 mg/dLBLOOD GAS, [id number] 04:48:00 Test Item Value Reference Range Comments PH ARTERIAL (BEAKER) (test iuvc=652) 7.42 7.35-7.45 PCO2 ARTERIAL (BEAKER) (test wkqd=111) 44 mmHg 35-45 PO2 ARTERIAL (BEAKER) (test equt=489) 175 mmHg 80-90 O2 SATURATION ARTERIAL (BEAKER) (test aezp=227) 99.2 % 96.0-97.0 HCO3 ARTERIAL (BEAKER) (test gyta=264) 28 mmol/L 21-29 BASE EXCESS ARTERIAL (BEAKER) (test iqdm=626) 2.7 mmol/L -2.0-3.0 PATIENT TEMPERATURE (BEAKER) (test gogl=0159) 37.0 C FIO2 (BEAKER) (test jtcx=9146) 40.0 % RAD, CHEST, 1 VIEW, NON [id number] 04:38:00Reason for exam:-> IntubatedShould this be performed at the bedside?->YesFINAL REPORT RAD, CHEST, 1 VIEW, NON DEPT INDICATION: Intubated COMPARISON: Prior day's exam FINDINGS: Portable frontal view of the chest. IMPRESSION: Support Lines: Stable. Lungs and pleura: Improved congestive changes. Patchy airspace disease is slightly less conspicuous inthe current exam. No significant effusion. No pneumothorax.Heart and mediastinum: Stable contours. Additional findings: None. Signed: JR Aguilar Robert MDReport Verified Date/Time: 01/08/2018 04:38:07 Reading Location: [address] Reading Room 04 :38 AMBASIC METABOLIC [id number] 01:07:00 Test Item Value Reference Range Comments SODIUM (BEAKER) (test 135 meq/L 136-145 blkz=466) POTASSIUM (BEAKER) (test 5.0 meq/L 3.5-5.1 yjqb=148) CHLORIDE (BEAKER) (test 103 meq/L 98-107 offd=643) CO2 (BEAKER) (test 26 meq/L 22-29 irlx=250) BLOOD UREA NITROGEN 20 mg/dL 7-21 (BEAKER) (test qeqj=327) CREATININE (BEAKER) (test 1.91 mg/dL 0.57-1.25 nezz=702) GLUCOSE RANDOM (BEAKER) 123 mg/dL 70-105 (test yoqr=041) CALCIUM (BEAKER) (test 8.5 mg/dL 8.4-10.2 xcwx=408) EGFR (BEAKER) (test 28 mL/min/1.73 sq m ESTIMATED GFR IS NOT dvmr=9124) ACCURATE CREATININE CLEARANCE IN PREDICTING GLOMERULAR FILTRATION RATE. ESTIMATED GFR IS NOT APPLICABLE FOR DIALYSIS PATIENTS. [id number] 00:37:00 Test Item Value Reference Range Comments PHOSPHORUS (BEAKER) (test jcza=054) 3.8 mg/dL 2.3-4.7 [id number] 00:37:00 Test Item Value Reference Range Comments MAGNESIUM (BEAKER) (test cmca=989) 2.0 mg/dL 1.6-2.6 BASIC METABOLIC [id number] 19:44:00 Test Item Value Reference Range Comments SODIUM (BEAKER) (test 136 meq/L 136-145 bjti=296) POTASSIUM (BEAKER) (test 5.1 meq/L 3.5-5.1 iusr=573) CHLORIDE (BEAKER) (test 103 meq/L 98-107 bmyo=142) CO2 (BEAKER) (test 23 meq/L 22-29 vpuh=331) BLOOD UREA NITROGEN 21 mg/dL 7-21 (BEAKER) (test ofys=561) CREATININE (BEAKER) (test 2.15 mg/dL 0.57-1.25 itpq=177) GLUCOSE RANDOM (BEAKER) 130 mg/dL 70-105 (test uydu=054) CALCIUM (BEAKER) (test 8.4 mg/dL 8.4-10.2 lvgc=184) EGFR (BEAKER) (test 25 mL/min/1.73 sq m ESTIMATED GFR IS NOT cykh=2221) ACCURATE CREATININE CLEARANCE IN PREDICTING GLOMERULAR FILTRATION RATE. ESTIMATED GFR IS NOT APPLICABLE FOR DIALYSIS PATIENTS. [id number] 19:40:00 Test Item Value Reference Range Comments PHOSPHORUS (BEAKER) (test ahdz=019) 4.4 mg/dL 2.3-4.7 [id number] 19:40:00 Test Item Value Reference Range Comments MAGNESIUM (BEAKER) (test zcme=783) 2.1 mg/dL 1.6-2.6 [id number] 17:07:00 Test Item Value Reference Range Comments PARTIAL THROMBOPLASTIN TIME (BEAKER) (test 78.1 seconds 22.5-36.0 ibza=296) [id number] 15:19:00 Test Item Value Reference Range Comments POTASSIUM (BEAKER) (test wmjj=352) 5.1 meq/L 3.5-5.1 [id number] 12:02:00 Test Item Value Reference Range Comments PARTIAL THROMBOPLASTIN TIME (BEAKER) (test 73.9 seconds 22.5-36.0 zoma=069) [id number] 11:44:00 Test Item Value Reference Range Comments POTASSIUM (BEAKER) (test tllp=698) 5.1 meq/L 3.5-5.1 Check Serum Potassium level 30 minutes after IV potassium replacement completed.CBC W/PLT COUNT & AUTO [id number] 10:29:00 Test Item Value Reference Range Comments WHITE BLOOD CELL COUNT (BEAKER) (test wwnv=669) 16.5 K/ L 3.5-10.5 RED BLOOD CELL COUNT (BEAKER) (test aubt=513) 2.13 M/ L 3.93-5.22 HEMOGLOBIN (BEAKER) (test cxsh=293) 6.3 GM/DL 11.2-15.7 HEMATOCRIT (BEAKER) (test wvdp=708) 20.2 % 34.1-44.9 MEAN CORPUSCULAR VOLUME (BEAKER) (test cald=942) 94.8 fL 79.4-94.8 MEAN CORPUSCULAR HEMOGLOBIN (BEAKER) (test 29.6 pg 25.6-32.2 areu=066) MEAN CORPUSCULAR HEMOGLOBIN CONC (BEAKER) (test 31.2 GM/DL 32.2-35.5 pwga=663) RED CELL DISTRIBUTION WIDTH (BEAKER) (test 16.8 % 11.7-14.4 etqf=021) PLATELET COUNT (BEAKER) (test qbnp=811) 270 K/CU MM 150-450 MEAN PLATELET VOLUME (BEAKER) (test hrmq=965) 9.8 fL 9.4-12.3 NUCLEATED RED BLOOD CELLS (BEAKER) (test 0 /100 WBC 0-0 hpkj=435) (CELLAVISION MANUAL DIFF)2018-01-07 10:29:00 Test Item Value Reference Range Comments NEUTROPHILS - REL (CELLAVISION)(BEAKER) (test 74 % kjor=2446) LYMPHOCYTES - REL (CELLAVISION)(BEAKER) (test 7 % zjkt=3460) MONOCYTES - REL (CELLAVISION)(BEAKER) (test 12 % jaau=5291) MYELOCYTES - REL (CELLAVISION)(BEAKER) (test 3 % 0-0 qzbu=2385) BANDS - REL (CELLAVISION)(BEAKER) (test 4 % 0-10 febh=8278) NEUTROPHILS - ABS (CELLAVISION)(BEAKER) (test 12.21 K/ul 1.56-6.13 nuuo=3407) LYMPHOCYTES - ABS (CELLAVISION)(BEAKER) (test 1.16 K/ul 1.18-3.74 zfpp=0764) MONOCYTES - ABS (CELLAVISION)(BEAKER) (test 1.98 K/uL 0.24-0.36 wghh=9113) MYELOCYTES-ABS (CELLAVISION)(BEAKER) (test 0.50 K/uL 0.00-0.00 vnme=6513) BANDS - ABS (CELLAVISION)(BEAKER) (test 0.66 K/uL 0.00-0.80 bovi=3729) TOTAL COUNTED (BEAKER) (test eeio=1035) 100 WBC MORPHOLOGY (BEAKER) (test vdvy=261) Normal GIANT PLATELETS (BEAKER) (test ddcg=944) Present POLYCHROMATOPHILLIC RBCS(BEAKER) (test moug=201) 1+ few HYPOCHROMIA (BEAKER) (test crvd=372) 2+ moderate ANISOCYTOSIS (BEAKER) (test ybze=727) 1+ few MACROCYTES (BEAKER) (test tzbm=265) 1+ few POIKILOCYTES (BEAKER) (test qtem=085) 1+ few ARTIFACT (CELLAVISION)(BEAKER) (test gpsc=5407) Present PLATELET CONCENTRATION (CELLAVISION)(BEAKER) Adequate (test yfon=6826) Received comment: User comments: Slide comments:[id number] 09:36:00 Test Item Value Reference Range Comments POTASSIUM (BEAKER) (test kjre=964) 5.0 meq/L 3.5-5.1 [id number] 09:36:00 Test Item Value Reference Range Comments MAGNESIUM (BEAKER) (test cbcp=810) 1.9 mg/dL 1.6-2.6 [id number] 09:36:00 Test Item Value Reference Range Comments PHOSPHORUS (BEAKER) (test rays=151) 3.3 mg/dL 2.3-4.7 [id number] 09:36:00 Test Item Value Reference Range Comments SODIUM (BEAKER) (test qitw=360) 134 meq/L 136-145 CALCIUM, [id number] 09:17:00 Test Item Value Reference Range Comments CALCIUM IONIZED (BEAKER) (test gekr=098) 1.14 mmol/L 1.12-1.27 PH, BLOOD (BEAKER) (test aunl=5682) 7.42 [id number] 06:18:00 Test Item Value Reference Range Comments POTASSIUM (BEAKER) (test aoqp=478) 4.7 meq/L 3.5-5.1 BASIC METABOLIC [id number] 06:18:00 Test Item Value Reference Range Comments SODIUM (BEAKER) (test 133 meq/L 136-145 ibiv=829) POTASSIUM (BEAKER) (test 4.7 meq/L 3.5-5.1 bdqp=958) CHLORIDE (BEAKER) (test 101 meq/L 98-107 kneo=376) CO2 (BEAKER) (test 25 meq/L 22-29 gvef=053) BLOOD UREA NITROGEN 15 mg/dL 7-21 (BEAKER) (test murp=692) CREATININE (BEAKER) (test 1.53 mg/dL 0.57-1.25 ztlq=246) GLUCOSE RANDOM (BEAKER) 101 mg/dL 70-105 (test yyih=194) CALCIUM (BEAKER) (test 8.8 mg/dL 8.4-10.2 psij=100) EGFR (BEAKER) (test 37 mL/min/1.73 sq m ESTIMATED GFR IS NOT nqpa=7563) ACCURATE CREATININE CLEARANCE IN PREDICTING GLOMERULAR FILTRATION RATE. ESTIMATED GFR IS NOT APPLICABLE FOR DIALYSIS PATIENTS. LACTATE DEHYDROGENASE (LDH)2018-01-07 06:18:00 Test Item Value Reference Range Comments LACTATE DEHYDROGENASE (BEAKER) (test bbsr=116) 519 U/L 125-220 [id number] 05:41:00 Test Item Value Reference Range Comments D-DIMER QUANTITATIVE (BEAKER) (test czta=295) 5.74 MG/L FEU <0.50 Intended Use: The D-Dimer Assay can be used to aid in the diagnosis of Deep Vein Thrombosis (DVT) and Pulmonary Embolism Disease (PED).In patients with low pre-test probability, various studies concerning STA Liatest D-dimer test have reported that with a cutoff value of 0.50 MG/L FEU, the Negative Predictive Value (NPV) regarding the exclusion of thrombosis is within 95-100% range.Prior to initiating heparinBLOOD GAS, [id number] 05:36:00 Test Item Value Reference Range Comments PH ARTERIAL (BEAKER) (test jrkk=541) 7.39 7.35-7.45 PCO2 ARTERIAL (BEAKER) (test igaa=402) 50 mmHg 35-45 PO2 ARTERIAL (BEAKER) (test nkib=853) 120 mmHg 80-90 O2 SATURATION ARTERIAL (BEAKER) (test nszm=079) 98.2 % 96.0-97.0 HCO3 ARTERIAL (BEAKER) (test khbl=402) 29 mmol/L 21-29 BASE EXCESS ARTERIAL (BEAKER) (test myec=279) 3.7 mmol/L -2.0-3.0 PATIENT TEMPERATURE (BEAKER) (test crzn=0983) 37.5 C FIO2 (BEAKER) (test avoj=9588) 40.0 % LACTIC ACID, ARTERIAL, WHOLE [id number] 05:21:00 Test Item Value Reference Range Comments LACTATE BLOOD ARTERIAL (2) (BEAKER) (test 0.6 mmol/L 0.5-2.2 ejsm=4038) Effective 11/12/2015: Units/Reference Range ChangeNew: 0.5-2.2 mmol/L Previous: 5 -20 mg/[id number] 05:19:00 Test Item Value Reference Range Comments PARTIAL THROMBOPLASTIN TIME (BEAKER) (test 62.2 seconds 22.5-36.0 nbfp=249) Prior to initiating heparinRAD, CHEST, 1 VIEW, NON [id number] 05:12: 00Reason for exam:->IntubatedShould this be performed at the bedside?-> YesFINAL REPORT Comparison exam: 01/06/2018 Bilateral pulmonary opacities stablewhen compared to 01/06/2018. Stable cardiomediastinal contours. Appropriate position of the support hardware. Signed: Cash Coleeport Verified Date/Time: 01/07/2018 05:12:04 Reading Location: [address] Ortho Consult Reading Room Electronically signed by: CASH COLE M.D. on01/07/2018 05:12 AMPOCT-GLUCOSE [id number] 00:38:00 Test Item Value Reference Range Comments POC-GLUCOSE METER (BEAKER) 122 mg/dL 70-110 TESTED AT [facility] [address] [facility] (test pvtd=2319) [facility] [address] [id number] 00:34:00 Test Item Value Reference Range Comments POTASSIUM (BEAKER) (test qtvs=434) 4.6 meq/L 3.5-5.1 CALCIUM, [id number] 00:29:00 Test Item Value Reference Range Comments CALCIUM IONIZED (BEAKER) (test xmxq=823) 1.15 mmol/L 1.12-1.27 PH, BLOOD (BEAKER) (test qqad=3497) 7.38 [id number] 20:39:00 Test Item Value Reference Range Comments POTASSIUM (BEAKER) (test vmtf=468) 4.7 meq/L 3.5-5.1 [id number] 20:39:00 Test Item Value Reference Range Comments MAGNESIUM (BEAKER) (test jilu=939) 1.9 mg/dL 1.6-2.6 [id number] 20:39:00 Test Item Value Reference Range Comments PHOSPHORUS (BEAKER) (test pvjb=909) 4.1 mg/dL 2.3-4.7 [id number] 20:39:00 Test Item Value Reference Range Comments SODIUM (BEAKER) (test xmqk=379) 135 meq/L 136-145 RAD, ABDOMEN/KUB, 1 VIEW [id number] 20:30:00Reason for exam:->feeding tube placementFINAL REPORT CLINICAL HISTORY: feeding tube placement TECHNIQUE: Supine abdomen IMPRESSION: The tip of the feeding tube is in the distal stomach. The partially visualized bowel gas pattern is nonspecific. Signed: Evan Lyon MDReport Verified Date/Time: 01/06/2018 20: 30:47 Reading Location: [address] Consult Reading Room Electronically signed by: EVAN LYON M.D.on 01/06/2018 08:30 PMBLOOD GAS, [id number] 17:35:00 Test Item Value Reference Range Comments PH ARTERIAL (BEAKER) (test wijq=019) 7.41 7.35-7.45 PCO2 ARTERIAL (BEAKER) (test grbt=959) 44 mmHg 35-45 PO2 ARTERIAL (BEAKER) (test quvu=805) 82 mmHg 80-90 O2 SATURATION ARTERIAL (BEAKER) (test jerh=057) 96.1 % 96.0-97.0 HCO3 ARTERIAL (BEAKER) (test kzkb=225) 27 mmol/L 21-29 BASE EXCESS ARTERIAL (BEAKER) (test wdxl=850) 2.1 mmol/L -2.0-3.0 PATIENT TEMPERATURE (BEAKER) (test ipcq=0973) 37.0 C FIO2 (BEAKER) (test iyhe=2164) 40.0 % [id number] 16:53:00 Test Item Value Reference Range Comments POTASSIUM (BEAKER) (test tits=621) 4.9 meq/L 3.5-5.1 CALCIUM, [id number] 16:38:00 Test Item Value Reference Range Comments CALCIUM IONIZED (BEAKER) (test qyjf=585) 1.18 mmol/L 1.12-1.27 PH, BLOOD (BEAKER) (test ddhb=7174) 7.43 [id number] 13:52:00 Test Item Value Reference Range Comments POTASSIUM (BEAKER) (test ynyv=694) 4.7 meq/L 3.5-5.1 CBC W/PLT COUNT & AUTO [id number] 11:53:00 Test Item Value Reference Range Comments WHITE BLOOD CELL COUNT (BEAKER) (test pfcs=953) 22.7 K/ L 3.5-10.5 RED BLOOD CELL COUNT (BEAKER) (test lwnz=457) 2.39 M/ L 3.93-5.22 HEMOGLOBIN (BEAKER) (test sdfa=464) 7.0 GM/DL 11.2-15.7 HEMATOCRIT (BEAKER) (test jwid=590) 22.7 % 34.1-44.9 MEAN CORPUSCULAR VOLUME (BEAKER) (test bycn=620) 95.0 fL 79.4-94.8 MEAN CORPUSCULAR HEMOGLOBIN (BEAKER) (test 29.3 pg 25.6-32.2 jrgo=135) MEAN CORPUSCULAR HEMOGLOBIN CONC (BEAKER) (test 30.8 GM/DL 32.2-35.5 aogl=704) RED CELL DISTRIBUTION WIDTH (BEAKER) (test 16.7 % 11.7-14.4 vnzn=310) PLATELET COUNT (BEAKER) (test uuqt=840) 296 K/CU MM 150-450 MEAN PLATELET VOLUME (BEAKER) (test vspt=417) 9.7 fL 9.4-12.3 NUCLEATED RED BLOOD CELLS (BEAKER) (test 0 /100 WBC 0-0 qmcs=826) (CELLAVISION MANUAL DIFF)2018-01-06 11:53:00 Test Item Value Reference Range Comments NEUTROPHILS - REL (CELLAVISION)(BEAKER) (test 67 % jtbi=5854) LYMPHOCYTES - REL (CELLAVISION)(BEAKER) (test 5 % hvck=0132) MONOCYTES - REL (CELLAVISION)(BEAKER) (test 10 % wmoh=6295) METAMYELOCYTES - REL (CELLAVISION)(BEAKER) (test 3 % 0-0 vjox=9324) MYELOCYTES - REL (CELLAVISION)(BEAKER) (test 5 % 0-0 luur=6612) PROMYELOCYTES - REL (CELLAVSION)(BEAKER) (test 3 % 0-0 ftbi=6439) BANDS - REL (CELLAVISION)(BEAKER) (test 6 % 0-10 wwow=1881) NEUTROPHILS - ABS (CELLAVISION)(BEAKER) (test 15.21 K/ul 1.56-6.13 cvns=7582) LYMPHOCYTES - ABS (CELLAVISION)(BEAKER) (test 1.14 K/ul 1.18-3.74 cgpq=6334) MONOCYTES - ABS (CELLAVISION)(BEAKER) (test 2.27 K/uL 0.24-0.36 wtrz=7954) METAMYELOCYTES - ABS (CELLAVISION)(BEAKER) (test 0.68 K/uL 0.00-0.00 regt=7934) MYELOCYTES-ABS (CELLAVISION)(BEAKER) (test 1.14 K/uL 0.00-0.00 dbgc=7209) PROMYELOCYTES - ABS (CELLAVISION)(BEAKER) (test 0.68 K/uL 0.00-0.00 rvmt=3317) BANDS - ABS (CELLAVISION)(BEAKER) (test 1.36 K/uL 0.00-0.80 bbsb=3005) TOTAL COUNTED (BEAKER) (test tofd=9461) 100 PLT MORPHOLOGY (BEAKER) (test hipg=192) Normal SMUDGE CELLS (BEAKER) (test thqt=4620) Present TOXIC GRANULATION (BEAKER) (test vaeh=856) Present POLYCHROMATOPHILLIC RBCS(BEAKER) (test jgxi=702) 1+ few ANISOCYTOSIS (BEAKER) (test iitn=539) 1+ few ARTIFACT (CELLAVISION)(BEAKER) (test dkkp=4908) Present PLATELET CONCENTRATION (CELLAVISION)(BEAKER) Adequate (test ycws=4205) Received comment: User comments: Slide comments:[id number] 09:33:00 Test Item Value Reference Range Comments POTASSIUM (BEAKER) (test dsbv=286) 4.5 meq/L 3.5-5.1 [id number] 09:33:00 Test Item Value Reference Range Comments MAGNESIUM (BEAKER) (test axsu=293) 2.0 mg/dL 1.6-2.6 [id number] 09:33:00 Test Item Value Reference Range Comments PHOSPHORUS (BEAKER) (test kqih=565) 3.0 mg/dL 2.3-4.7 [id number] 09:33:00 Test Item Value Reference Range Comments SODIUM (BEAKER) (test ituz=105) 134 meq/L 136-145 SPUTUM CULTURE + GRAM [id number] 09:21:00 Test Item Value Reference Range Comments CULTURE (BEAKER) (test ACINETOBACTER 3+ Acinetobacter ohzp=5997) BAUMANNII COMPLEX baumannii complex Amikacin (test code=1) Susceptible 0-16 , Resistant <0 or >16 Ampicillin + Sulbactam Susceptible 0-8 , (test code=6) Resistant <0 or >8 Cefepime (test code=51) Susceptible 0-8 , Resistant <0 or >8 Ceftazidime (test Susceptible 0-8 , code=27) Resistant <0 or >8 Ciprofloxacin (test Susceptible 0-1 , code=7) Resistant <0 or >1 Gentamicin (test Susceptible 0-4 , code=18) Resistant <0 or >4 Imipenem (test code=19) Susceptible 0-2 , Resistant <0 or >2 Levofloxacin (test Susceptible 0-2 , code=22) Resistant <0 or >2 Meropenem (test code=34) Susceptible 0-2 , Resistant <0 or >2 Minocycline (test Susceptible 0-4 , code=35) Resistant <0 or >4 Piperacillin (test Susceptible 0-16 , code=24) Resistant <0 or >16 Piperacillin + Susceptible 0-16 , Tazobactam (test Resistant <0 or >16 code=29) Tetracycline (test Susceptible 0-4 , code=2) Resistant <0 or >4 Tobramycin (test Susceptible 0-4 , code=25) Resistant <0 or >4 Trimethoprim + Susceptible 0-40 , Sulfamethoxazole (test Resistant <0 or >40 code=47) GRAM STAIN RESULT 4+ WBCs (BEAKER) (test zpyi=8511) GRAM STAIN RESULT 5-10 epithelial cells (BEAKER) (test njdk=884564) GRAM STAIN RESULT <1+ gram negative (BEAKER) (test rods caiy=872366) GRAM STAIN RESULT <1+ gram positive (BEAKER) (test rods ispw=742767) GRAM STAIN RESULT <1+ gram positive (BEAKER) (test cocci in pairs lndz=128639) GRAM STAIN RESULT <1+ yeast (BEAKER) (test xkms=873802) 2+ Normal respiratory сергей [id number] 09:12:00 Test Item Value Reference Range Comments PARTIAL THROMBOPLASTIN TIME (BEAKER) (test 76.0 seconds 22.5-36.0 nlxy=774) CALCIUM, [id number] 09:10:00 Test Item Value Reference Range Comments CALCIUM IONIZED (BEAKER) (test kiym=745) 1.19 mmol/L 1.12-1.27 PH, BLOOD (BEAKER) (test anhm=3653) 7.39 BASIC METABOLIC [id number] 08:52:00 Test Item Value Reference Range Comments SODIUM (BEAKER) (test 134 meq/L 136-145 ndft=062) POTASSIUM (BEAKER) (test 4.9 meq/L 3.5-5.1 cmyu=970) CHLORIDE (BEAKER) (test 102 meq/L 98-107 wlwt=459) CO2 (BEAKER) (test 24 meq/L 22-29 bner=082) BLOOD UREA NITROGEN 17 mg/dL 7-21 (BEAKER) (test lafv=407) CREATININE (BEAKER) (test 1.55 mg/dL 0.57-1.25 ifjm=556) GLUCOSE RANDOM (BEAKER) 132 mg/dL 70-105 (test mqox=163) CALCIUM (BEAKER) (test 9.1 mg/dL 8.4-10.2 efhe=617) EGFR (BEAKER) (test 36 mL/min/1.73 sq m ESTIMATED GFR IS NOT tszb=5875) ACCURATE CREATININE CLEARANCE IN PREDICTING GLOMERULAR FILTRATION RATE. ESTIMATED GFR IS NOT APPLICABLE FOR DIALYSIS PATIENTS. LACTATE DEHYDROGENASE (LDH)2018-01-06 06:10:00 Test Item Value Reference Range Comments LACTATE DEHYDROGENASE (BEAKER) 574 U/L 125-220 Specimen slightly hemolyzed (test sbmg=685) [id number] 06:09:00 Test Item Value Reference Range Comments POTASSIUM (BEAKER) (test 4.5 meq/L 3.5-5.1 Specimen slightly hemolyzed aswj=827) [id number] 05:41:00 Test Item Value Reference Range Comments D-DIMER QUANTITATIVE (BEAKER) (test igys=971) 4.02 MG/L FEU <0.50 Intended Use: The D-Dimer Assay can be used to aid in the diagnosis of Deep Vein Thrombosis (DVT) and Pulmonary Embolism Disease (PED).In patients with low pre-test probability, various studies concerning STA Liatest D-dimer test have reported that with a cutoff value of 0.50 MG/L FEU, the Negative Predictive Value (NPV) regarding the exclusion of thrombosis is within 95-100% range.LACTIC ACID, ARTERIAL, WHOLE [id number] 05:39:00 Test Item Value Reference Range Comments LACTATE BLOOD ARTERIAL (2) (BEAKER) (test 0.6 mmol/L 0.5-2.2 fnjy=2552) Effective 11/12/2015: Units/Reference Range ChangeNew: 0.5-2.2 mmol/L Previous: 5 -20 mg/dLBLOOD GAS, [id number] 05:32:00 Test Item Value Reference Range Comments PH ARTERIAL (BEAKER) (test uney=951) 7.37 7.35-7.45 PCO2 ARTERIAL (BEAKER) (test prei=780) 51 mmHg 35-45 PO2 ARTERIAL (BEAKER) (test cckr=625) 113 mmHg 80-90 O2 SATURATION ARTERIAL (BEAKER) (test ggwv=656) 97.9 % 96.0-97.0 HCO3 ARTERIAL (BEAKER) (test dqvu=190) 29 mmol/L 21-29 BASE EXCESS ARTERIAL (BEAKER) (test nwyo=853) 3.3 mmol/L -2.0-3.0 PATIENT TEMPERATURE (BEAKER) (test wohy=4007) 37.5 C FIO2 (BEAKER) (test ieka=3332) 40.0 % [id number] 05:32:00 Test Item Value Reference Range Comments PARTIAL THROMBOPLASTIN TIME (BEAKER) (test 70.0 seconds 22.5-36.0 chrd=962) RAD, CHEST, 1 VIEW, NON [id number] 04:40:00Reason for exam:-> IntubatedShould this be performed at the bedside?->YesFINAL REPORT Comparison exam: 01/05/2018 Pulmonary venous congestion, unchanged. Stable cardiomediastinal contours. Appropriate position of the support hardware. Signed: Cash Cole Verified Date/Time: 01/06 04:40:59 Reading Location: [address] Ortho Consult Reading Room [id number] 01:50:00 Test Item Value Reference Range Comments PROTIME (BEAKER) (test ozps=858) 15.7 seconds 11.7-14.7 INR (BEAKER) (test egwh=258) 1.3 <=5.9 PARTIAL THROMBOPLASTIN TIME (BEAKER) (test 63.1 seconds 22.5-36.0 xrpn=733) RECOMMENDED COUMADIN/WARFARIN INR THERAPY RANGESSTANDARD DOSE: 2.0 - 3.0 Includes: PROPHYLAXIS forvenous thrombosis, systemic embolization; TREATMENT for venous thrombosis and/or pulmonary embolus.HIGH RISK: Target INR is 2.5-3.5 for patients with mechanical heart valves.[id number] 01:48:00 Test Item Value Reference Range Comments POTASSIUM (BEAKER) (test srmr=863) 4.4 meq/L 3.5-5.1 CALCIUM, [id number] 01:28:00 Test Item Value Reference Range Comments CALCIUM IONIZED (BEAKER) (test zmcy=070) 1.17 mmol/L 1.12-1.27 PH, BLOOD (BEAKER) (test omro=4148) 7.41 [id number] 21:17:00 Test Item Value Reference Range Comments POTASSIUM (BEAKER) (test cghv=135) 4.6 meq/L 3.5-5.1 [id number] 21:17:00 Test Item Value Reference Range Comments MAGNESIUM (BEAKER) (test lfwd=154) 1.9 mg/dL 1.6-2.6 [id number] 21:17:00 Test Item Value Reference Range Comments PHOSPHORUS (BEAKER) (test qiri=317) 3.2 mg/dL 2.3-4.7 [id number] 21:17:00 Test Item Value Reference Range Comments SODIUM (BEAKER) (test jxtr=961) 135 meq/L 136-145 [id number] 16:26:00 Test Item Value Reference Range Comments PARTIAL THROMBOPLASTIN TIME (BEAKER) (test 47.7 seconds 22.5-36.0 vbqd=150) [id number] 15:57:00 Test Item Value Reference Range Comments POTASSIUM (BEAKER) (test sfoc=867) 4.8 meq/L 3.5-5.1 BLOOD GAS, [id number] 15:23:00 Test Item Value Reference Range Comments PH ARTERIAL (BEAKER) (test jlmw=362) 7.39 7.35-7.45 PCO2 ARTERIAL (BEAKER) (test lmzc=583) 47 mmHg 35-45 PO2 ARTERIAL (BEAKER) (test akym=656) 72 mmHg 80-90 O2 SATURATION ARTERIAL (BEAKER) (test dqhd=185) 93.3 % 96.0-97.0 HCO3 ARTERIAL (BEAKER) (test vgge=699) 27 mmol/L 21-29 BASE EXCESS ARTERIAL (BEAKER) (test biwg=936) 2.4 mmol/L -2.0-3.0 PATIENT TEMPERATURE (BEAKER) (test oxmr=8218) 38.0 C FIO2 (BEAKER) (test bvis=7448) 40.0 % CALCIUM, [id number] 15:22:00 Test Item Value Reference Range Comments CALCIUM IONIZED (BEAKER) (test frzb=838) 1.13 mmol/L 1.12-1.27 PH, BLOOD (BEAKER) (test gybe=9699) 7.41 CBC W/PLT COUNT & AUTO [id number] 14:07:00 Test Item Value Reference Range Comments WHITE BLOOD CELL COUNT (BEAKER) (test vzna=163) 40.2 K/ L 3.5-10.5 RED BLOOD CELL COUNT (BEAKER) (test rqmz=614) 2.69 M/ L 3.93-5.22 HEMOGLOBIN (BEAKER) (test booi=299) 8.0 GM/DL 11.2-15.7 HEMATOCRIT (BEAKER) (test tysn=065) 25.6 % 34.1-44.9 MEAN CORPUSCULAR VOLUME (BEAKER) (test jtls=092) 95.2 fL 79.4-94.8 MEAN CORPUSCULAR HEMOGLOBIN (BEAKER) (test 29.7 pg 25.6-32.2 vnfg=727) MEAN CORPUSCULAR HEMOGLOBIN CONC (BEAKER) (test 31.3 GM/DL 32.2-35.5 kibo=462) RED CELL DISTRIBUTION WIDTH (BEAKER) (test 16.8 % 11.7-14.4 mnul=719) PLATELET COUNT (BEAKER) (test vvjq=840) 325 K/CU MM 150-450 MEAN PLATELET VOLUME (BEAKER) (test qdit=928) 9.9 fL 9.4-12.3 NUCLEATED RED BLOOD CELLS (BEAKER) (test 0 /100 WBC 0-0 dmtg=449) (CELLAVISION MANUAL DIFF)2018-01-05 14:07:00 Test Item Value Reference Range Comments NEUTROPHILS - REL (CELLAVISION)(BEAKER) (test 62 % lvvv=4361) LYMPHOCYTES - REL (CELLAVISION)(BEAKER) (test 9 % swgc=6275) MONOCYTES - REL (CELLAVISION)(BEAKER) (test 5 % vvlt=3459) EOSINOPHILS - REL (CELLAVISION)(BEAKER) (test 1 % gegu=4999) METAMYELOCYTES - REL (CELLAVISION)(BEAKER) (test 6 % 0-0 sxhn=0372) MYELOCYTES - REL (CELLAVISION)(BEAKER) (test 4 % 0-0 cfts=3456) PROMYELOCYTES - REL (CELLAVSION)(BEAKER) (test 2 % 0-0 wsis=9143) BANDS - REL (CELLAVISION)(BEAKER) (test 10 % 0-10 fkdc=2055) NEUTROPHILS - ABS (CELLAVISION)(BEAKER) (test 24.92 K/ul 1.56-6.13 lxnk=2265) LYMPHOCYTES - ABS (CELLAVISION)(BEAKER) (test 3.62 K/ul 1.18-3.74 rasz=0219) MONOCYTES - ABS (CELLAVISION)(BEAKER) (test 2.01 K/uL 0.24-0.36 sscc=2009) EOSINOPHILS - ABS (CELLAVISION)(BEAKER) (test 0.40 K/uL 0.04-0.36 yngt=9053) METAMYELOCYTES - ABS (CELLAVISION)(BEAKER) (test 2.41 K/uL 0.00-0.00 ueyv=3967) MYELOCYTES-ABS (CELLAVISION)(BEAKER) (test 1.61 K/uL 0.00-0.00 whnr=9158) PROMYELOCYTES - ABS (CELLAVISION)(BEAKER) (test 0.80 K/uL 0.00-0.00 vicv=5568) BANDS - ABS (CELLAVISION)(BEAKER) (test 4.02 K/uL 0.00-0.80 osvi=6810) TOTAL COUNTED (BEAKER) (test yuny=7888) 100 SMUDGE CELLS (BEAKER) (test mobi=2777) Present GIANT PLATELETS (BEAKER) (test jyct=841) Present ANISOCYTOSIS (BEAKER) (test skxn=352) 1+ few BASOPHILIC STIPPLING (BEAKER) (test fznz=745) Present ARTIFACT (CELLAVISION)(BEAKER) (test kpog=7928) Present PLATELET CONCENTRATION (CELLAVISION)(BEAKER) Adequate (test srvw=4782) Received comment: User comments: Slide comments:[id number] 08:55:00 Test Item Value Reference Range Comments PARTIAL THROMBOPLASTIN TIME (BEAKER) (test 40.8 seconds 22.5-36.0 kxvr=758) [id number] 08:46:00 Test Item Value Reference Range Comments POTASSIUM (BEAKER) (test zyfl=925) 4.8 meq/L 3.5-5.1 [id number] 08:46:00 Test Item Value Reference Range Comments MAGNESIUM (BEAKER) (test vnij=294) 2.3 mg/dL 1.6-2.6 [id number] 08:46:00 Test Item Value Reference Range Comments PHOSPHORUS (BEAKER) (test crog=992) 3.6 mg/dL 2.3-4.7 [id number] 08:46:00 Test Item Value Reference Range Comments SODIUM (BEAKER) (test btto=713) 138 meq/L 136-145 CALCIUM, [id number] 08:37:00 Test Item Value Reference Range Comments CALCIUM IONIZED (BEAKER) (test usob=667) 1.11 mmol/L 1.12-1.27 PH, BLOOD (BEAKER) (test tswj=5892) 7.40 [id number] 05:38:00 Test Item Value Reference Range Comments POTASSIUM (BEAKER) (test viou=881) 4.6 meq/L 3.5-5.1 BASIC METABOLIC [id number] 05:38:00 Test Item Value Reference Range Comments SODIUM (BEAKER) (test 136 meq/L 136-145 smns=052) POTASSIUM (BEAKER) (test 4.6 meq/L 3.5-5.1 udhv=171) CHLORIDE (BEAKER) (test 102 meq/L 98-107 dhgh=558) CO2 (BEAKER) (test 24 meq/L 22-29 qdnm=076) BLOOD UREA NITROGEN 24 mg/dL 7-21 (BEAKER) (test vfcx=808) CREATININE (BEAKER) (test 1.80 mg/dL 0.57-1.25 ghpl=610) GLUCOSE RANDOM (BEAKER) 120 mg/dL 70-105 (test frdk=717) CALCIUM (BEAKER) (test 8.6 mg/dL 8.4-10.2 xrqx=285) EGFR (BEAKER) (test 30 mL/min/1.73 sq m ESTIMATED GFR IS NOT pupz=1880) ACCURATE CREATININE CLEARANCE IN PREDICTING GLOMERULAR FILTRATION RATE. ESTIMATED GFR IS NOT APPLICABLE FOR DIALYSIS PATIENTS. LACTATE DEHYDROGENASE (LDH)2018-01-05 05:38:00 Test Item Value Reference Range Comments LACTATE DEHYDROGENASE (BEAKER) (test gfrd=807) 549 U/L 125-220 LACTIC ACID, ARTERIAL, WHOLE [id number] 05:19:00 Test Item Value Reference Range Comments LACTATE BLOOD ARTERIAL (2) (BEAKER) (test 0.6 mmol/L 0.5-2.2 hpju=7446) Effective 11/12/2015: Units/Reference Range ChangeNew: 0.5-2.2 mmol/L Previous: 5 -20 mg/[id number] 05:18:00 Test Item Value Reference Range Comments D-DIMER QUANTITATIVE (BEAKER) (test hlmu=540) 4.02 MG/L FEU <0.50 Intended Use: The D-Dimer Assay can be used to aid in the diagnosis of Deep Vein Thrombosis (DVT) and Pulmonary Embolism Disease (PED).In patients with low pre-test probability, various studies concerning STA Liatest D-dimer test have reported that with a cutoff value of 0.50 MG/L FEU, the Negative Predictive Value (NPV) regarding the exclusion of thrombosis is within 95-100% range.[id number] 05:09:00 Test Item Value Reference Range Comments PARTIAL THROMBOPLASTIN TIME (BEAKER) (test 49.5 seconds 22.5-36.0 nupq=834) CALCIUM, [id number] 05:03:00 Test Item Value Reference Range Comments CALCIUM IONIZED (BEAKER) (test yjeq=205) 1.15 mmol/L 1.12-1.27 PH, BLOOD (BEAKER) (test yhjy=7428) 7.39 BLOOD GAS, [id number] 05:02:00 Test Item Value Reference Range Comments PH ARTERIAL (BEAKER) (test zttk=113) 7.38 7.35-7.45 PCO2 ARTERIAL (BEAKER) (test wpsg=861) 45 mmHg 35-45 PO2 ARTERIAL (BEAKER) (test pdlo=712) 86 mmHg 80-90 O2 SATURATION ARTERIAL (BEAKER) (test ezhf=945) 96.3 % 96.0-97.0 HCO3 ARTERIAL (BEAKER) (test sdxp=742) 26 mmol/L 21-29 BASE EXCESS ARTERIAL (BEAKER) (test klxj=922) 0.4 mmol/L -2.0-3.0 PATIENT TEMPERATURE (BEAKER) (test hfkg=8515) 37.0 C FIO2 (BEAKER) (test lvbx=4757) 50.0 % RAD, CHEST, 1 VIEW, NON [id number] 04:47:00Reason for exam:-> IntubatedShould this be performed at the bedside?->YesFINAL REPORT RAD, CHEST, 1 VIEW, NON DEPT INDICATION: Intubated COMPARISON: Prior day's exam FINDINGS: Portable frontal view of the chest. IMPRESSION: Support Lines: Stable. Lungs and pleura: Interstitial edema unchanged from prior. No new focal consolidation. No pneumothorax.Heart and mediastinum: Stable contours. Additional findings: None. Signed: JR Lauren, Katharine MERCEDESeport Verified Date/Time: 01/05/2018 04:47:39 Reading Location: [address] Reading Room [id number] 00:57:00 Test Item Value Reference Range Comments POTASSIUM (BEAKER) (test xuuz=891) 4.5 meq/L 3.5-5.1 CALCIUM, [id number] 00:53:00 Test Item Value Reference Range Comments CALCIUM IONIZED (BEAKER) (test tgzn=618) 1.14 mmol/L 1.12-1.27 PH, BLOOD (BEAKER) (test mwuz=6045) 7.38 CT, CHEST, WITHOUT [id number] 23:07:00FINAL REPORT CT scan of the chest, abdomen and pelvis. CLINICAL HISTORY: Leukocytosis, source of infection. Patient has renal failure. COMPARISON STUDY: Chest x-ray and abdominalx-ray dated January 04, 2018 and ultrasound of [...] tree is clear with no endobronchial lesions. Thepulmonary parenchyma demonstrates atelectasis or consolidation in both lower lobes. Multiple groundglass opacities are seen throughout the lungs with multiple peripheral airspace opacities including a 5.1 x 2.8 cm airspace opacity in the left lower lobe, 3.4 cm airspace opacity in the lingula, 4.8 x 4.7 cm airspace opacity right middle lobe containing some cavitation, 6.6 x 2.9 cm airspace opacity inthe right lower lobe inferiorly and a 4.2 x 3.1 cm opacity in the left lower lobe medially with somecentral cavitation. Other airspace opacities are noted. The abdomen and pelvis are limited by lack of contrast. The liver, spleen, pancreas, adrenal glands and kidneys are unremarkable. The gallbladderis sludge or stone filled. No biliary dilatation is seen. There are no dilated loops of bowel seen to suggest obstruction. Significant colonic stool is seen. No free fluid or free air is seen. There isno suspicious adenopathy. The aorta is normal in caliber. Atherosclerosis is identified. Clips are seen in the groins with areas of subcutaneous stranding and small lymph nodes. Diffuse anasarca is present. Bone windows demonstrate degenerative changes. IMPRESSION:1. Multiple support lines and tubes as detailed above.2. Multifocal airspace opacities throughout both lung javier including some areas ofcavitation. Septic emboli cannot would be high in the differential. Pulmonary embolism would also bepossible.3. Small right-sided pleural effusion and small loculated left-sided pleural effusion with a left- sided chest tube in place.4. Study limited by lack of contrast.5. Diffuse anasarca. A verbal report was given to the patient's nurse, David at the time of dictation. He was instructed to inform thephysician. Signed: Danyel Sandra MDReport Verified Date/Time: 01/04/2018 23:07:55 Reading Location: [address] Consult Reading Room CT, [id number] 23:07:00FINAL REPORT CT scan of the chest, abdomen and pelvis. CLINICAL HISTORY: Leukocytosis, source of infection. Patient has renal failure. COMPARISON STUDY: Chest x-ray and abdominalx-ray dated January 04, 2018 and ultrasound of [...] tree is clear with no endobronchial lesions. Thepulmonary parenchyma demonstrates atelectasis or consolidation in both lower lobes. Multiple groundglass opacities are seen throughout the lungs with multiple peripheral airspace opacities including a 5.1 x 2.8 cm airspace opacity in the left lower lobe, 3.4 cm airspace opacity in the lingula, 4.8 x 4.7 cm airspace opacity right middle lobe containing some cavitation, 6.6 x 2.9 cm airspace opacity inthe right lower lobe inferiorly and a 4.2 x 3.1 cm opacity in the left lower lobe medially with somecentral cavitation. Other airspace opacities are noted. The abdomen and pelvis are limited by lack of contrast. The liver, spleen, pancreas, adrenal glands and kidneys are unremarkable. The gallbladderis sludge or stone filled. No biliary dilatation is seen. There are no dilated loops of bowel seen to suggest obstruction. Significant colonic stool is seen. No free fluid or free air is seen. There isno suspicious adenopathy. The aorta is normal in caliber. Atherosclerosis is identified. Clips are seen in the groins with areas of subcutaneous stranding and small lymph nodes. Diffuse anasarca is present. Bone windows demonstrate degenerative changes. IMPRESSION:1. Multiple support lines and tubes as detailed above.2. Multifocal airspace opacities throughout both lung javier including some areas ofcavitation. Septic emboli cannot would be high in the differential. Pulmonary embolism would also bepossible.3. Small right-sided pleural effusion and small loculated left-sided pleural effusion with a left- sided chest tube in place.4. Study limited by lack of contrast.5. Diffuse anasarca. A verbal report was given to the patient's nurse, David at the time of dictation. He was instructed to inform thephysician. Signed: Stanietzky, Danyel MDReport Verified Date/Time: 01/04/2018 23:07:55 Reading Location: [facility] B1 C013W Consult Reading Room [id number] 21:01:00 Test Item Value Reference Range Comments POTASSIUM (BEAKER) (test tsqk=446) 4.6 meq/L 3.5-5.1 [id number] 21:01:00 Test Item Value Reference Range Comments MAGNESIUM (BEAKER) (test hnkm=270) 1.8 mg/dL 1.6-2.6 [id number] 21:01:00 Test Item Value Reference Range Comments PHOSPHORUS (BEAKER) (test ooic=701) 3.4 mg/dL 2.3-4.7 [id number] 21:01:00 Test Item Value Reference Range Comments SODIUM (BEAKER) (test cwwo=568) 136 meq/L 136-145 PH, [id number] 20:53:00 Test Item Value Reference Range Comments PH ARTERIAL (BEAKER) (test dncs=280) 7.35 7.35-7.45 POCT-GLUCOSE [id number] 18:51:00 Test Item Value Reference Range Comments POC-GLUCOSE METER (BEAKER) 132 mg/dL 70-110 TESTED AT [address] (test wmzy=0758) [facility] [address] HEPATOBILIARY [id number] 16:08:00FINAL REPORT PROCEDURE: HEPATOBILIARY SCAN CPT CODE: 11333 INDICATION: Fever , abnormal gallbladder ultrasound PROTOCOL: 5.2 mCi of [...] tracer appears appropriately in the small bowel. IMPRESSION:1. Diffuse hepatocellular dysfunction.2. There is normal gallbladder filling and no evidence of acute cholecystitis. Signed: Yeimy Barker MDReport Verified Date/Time: 01/04/2018 16:08:17 Reading Location[facility] [address] Reading Room [id number] 15:07:00 Test Item Value Reference Range Comments PARTIAL THROMBOPLASTIN TIME (BEAKER) (test 102.2 seconds 22.5-36.0 dfnp=484) [id number] 15:01:00 Test Item Value Reference Range Comments POTASSIUM (BEAKER) (test elrg=049) 4.5 meq/L 3.5-5.1 BLOOD GAS, [id number] 14:50:00 Test Item Value Reference Range Comments PH ARTERIAL (BEAKER) (test cvys=307) 7.41 7.35-7.45 PCO2 ARTERIAL (BEAKER) (test duql=696) 46 mmHg 35-45 PO2 ARTERIAL (BEAKER) (test exji=134) 107 mmHg 80-90 O2 SATURATION ARTERIAL (BEAKER) (test ljbx=957) 97.9 % 96.0-97.0 HCO3 ARTERIAL (BEAKER) (test kzrc=150) 28 mmol/L 21-29 BASE EXCESS ARTERIAL (BEAKER) (test zjcv=234) 3.0 mmol/L -2.0-3.0 PATIENT TEMPERATURE (BEAKER) (test euxa=9893) 37.0 C FIO2 (BEAKER) (test alpo=5483) 50.0 % POCT-GLUCOSE [id number] 12:20:00 Test Item Value Reference Range Comments POC-GLUCOSE METER (BEAKER) 168 mg/dL 70-110 TESTED AT [facility] [address] [facility] (test axip=3377) [facility] [address] [id number] 11:47:00 Test Item Value Reference Range Comments POTASSIUM (BEAKER) (test awmg=883) 4.8 meq/L 3.5-5.1 [id number] 11:47:00 Test Item Value Reference Range Comments MAGNESIUM (BEAKER) (test zxyw=353) 1.9 mg/dL 1.6-2.6 [id number] 11:47:00 Test Item Value Reference Range Comments PHOSPHORUS (BEAKER) (test wiku=749) 3.1 mg/dL 2.3-4.7 [id number] 11:47:00 Test Item Value Reference Range Comments SODIUM (BEAKER) (test gegv=795) 137 meq/L 136-145 RAD, ABDOMEN/KUB, 1 VIEW [id number] 10:59:00Reason for exam:->ileus, dilated bowel loopsShould this be performed at the bedside?->YesFINAL REPORT Three abdomen images Discussion: There is a paucity of visible small bowel gas. Feeding tube extends to the pyloric region. No grossly apparent bowel obstruction. Signed: Jony Mcfadden Verified Date/Time: 01/04/2018 10:59:39 Reading Location: [facility] Radiology Reading Room RAD, CHEST, 1 VIEW, NON [id number] 10:19:00Reason for exam:->ecmo, intubatedShould this be performed at the bedside?->YesFINAL REPORT Chest one view compared to January 03 Discussion: Pulmonary edema, support tubes, lines unchanged. Left chest tube in place. No effusion or pneumothorax. Signed: Jony Mcfadden Verified Date/Time: 01/04/2018 10:19:56 Reading Location : [facility] Radiology Reading Room CALCIUM, [id number] 10:17:00 Test Item Value Reference Range Comments CALCIUM IONIZED (BEAKER) (test mxyo=532) 1.16 mmol/L 1.12-1.27 PH, BLOOD (BEAKER) (test rohv=8369) 7.37 CBC W/PLT COUNT & AUTO [id number] 09:22:00 Test Item Value Reference Range Comments WHITE BLOOD CELL COUNT (BEAKER) (test zmdf=916) 42.6 K/ L 3.5-10.5 RED BLOOD CELL COUNT (BEAKER) (test qbci=820) 2.61 M/ L 3.93-5.22 HEMOGLOBIN (BEAKER) (test mumu=378) 7.8 GM/DL 11.2-15.7 HEMATOCRIT (BEAKER) (test bbkf=722) 25.3 % 34.1-44.9 MEAN CORPUSCULAR VOLUME (BEAKER) (test msth=863) 96.9 fL 79.4-94.8 MEAN CORPUSCULAR HEMOGLOBIN (BEAKER) (test 29.9 pg 25.6-32.2 eqzc=039) MEAN CORPUSCULAR HEMOGLOBIN CONC (BEAKER) (test 30.8 GM/DL 32.2-35.5 akcl=838) RED CELL DISTRIBUTION WIDTH (BEAKER) (test 16.7 % 11.7-14.4 geuj=562) PLATELET COUNT (BEAKER) (test nvvy=358) 246 K/CU MM 150-450 MEAN PLATELET VOLUME (BEAKER) (test mcqv=787) 10.3 fL 9.4-12.3 NUCLEATED RED BLOOD CELLS (BEAKER) (test 0 /100 WBC 0-0 tkco=098) (CELLAVISION MANUAL DIFF)2018-01-04 09:22:00 Test Item Value Reference Range Comments NEUTROPHILS - REL (CELLAVISION)(BEAKER) (test 60 % kavu=7998) LYMPHOCYTES - REL (CELLAVISION)(BEAKER) (test 7 % sbuz=8847) MONOCYTES - REL (CELLAVISION)(BEAKER) (test 9 % kedv=2742) METAMYELOCYTES - REL (CELLAVISION)(BEAKER) (test 7 % 0-0 bkeb=1175) MYELOCYTES - REL (CELLAVISION)(BEAKER) (test 12 % 0-0 hzst=3437) BANDS - REL (CELLAVISION)(BEAKER) (test 5 % 0-10 oujk=1656) NEUTROPHILS - ABS (CELLAVISION)(BEAKER) (test 25.56 K/ul 1.56-6.13 lnjt=6437) LYMPHOCYTES - ABS (CELLAVISION)(BEAKER) (test 2.98 K/ul 1.18-3.74 dabw=1937) MONOCYTES - ABS (CELLAVISION)(BEAKER) (test 3.83 K/uL 0.24-0.36 hlod=1496) METAMYELOCYTES - ABS (CELLAVISION)(BEAKER) (test 2.98 K/uL 0.00-0.00 guif=4742) MYELOCYTES-ABS (CELLAVISION)(BEAKER) (test 5.11 K/uL 0.00-0.00 jjkk=7826) BANDS - ABS (CELLAVISION)(BEAKER) (test 2.13 K/uL 0.00-0.80 pnjw=4441) TOTAL COUNTED (BEAKER) (test bbqv=9092) 100 PLT MORPHOLOGY (BEAKER) (test zjtu=180) Normal TOXIC GRANULATION (BEAKER) (test ykiv=263) Present SPHEROCYTES (BEAKER) (test ppmb=209) 1+ few BASOPHILIC STIPPLING (BEAKER) (test guel=380) Present ARTIFACT (CELLAVISION)(BEAKER) (test kmrs=3449) Present PLATELET CONCENTRATION (CELLAVISION)(BEAKER) Adequate (test ipdd=9858) Received comment: User comments: Slide comments:HEPATIC FUNCTION [id number] 07:25:00 Test Item Value Reference Range Comments TOTAL PROTEIN (BEAKER) (test vcbx=245) 5.7 gm/dL 6.0-8.3 ALBUMIN (BEAKER) (test imda=7661) 2.4 g/dL 3.5-5.0 BILIRUBIN TOTAL (BEAKER) (test frre=201) 1.3 mg/dL 0.2-1.2 BILIRUBIN DIRECT (BEAKER) (test qgvp=690) 1.0 mg/dL 0.1-0.5 ALKALINE PHOSPHATASE (BEAKER) (test fmhg=341) 125 U/L 40-150 AST (SGOT) (BEAKER) (test mrky=803) 65 U/L 5-34 ALT (SGPT) (BEAKER) (test wotr=186) 53 U/L 6-55 POCT-GLUCOSE [id number] 06:06:00 Test Item Value Reference Range Comments POC-GLUCOSE METER (BEAKER) 161 mg/dL 70-110 TESTED AT [facility] [address] [facility] (test cjzi=5612) [place] [address] U/S, ABDOMINAL, [id number] 05:25:00Reason for exam:->? acalculous cholecystitisReason for exam:->leukocytosis, septic shockShouldthis be performed at the bedside?->YesFINAL REPORT Ultrasound of the Abdomen, complete Clinical [...] 6.9 x 6.9 cm with cortical thickness of1.9 cm. Normal cortical echogenicity. No shadowing calculus, no hydronephrosis. IVC/Aorta: Segments partially seen. Unremarkable. Impression: Gallbladder sludge and trace pericholecystic fluid. Findings are equivocal for acute cholecystitis. A HIDA scan may be performed if clinical suspicion for acute cholecystitis persists.Hepatomegaly. Echogenic liver which are basilar parenchymal disease suchas fatty infiltration.No biliary ductal dilatation. Signed: Shad Joseph MDReport Verified Date/Time: 01/04/2018 05:25:20 Reading Location: [address] Reading Room VITAMIN B12 AND [id number] 05:09:00 Test Item Value Reference Range Comments VITAMIN B12 (BEAKER) (test kegb=932) > pg/mL 213-816 FOLATE (BEAKER) (test goqe=489) 6.3 ng/mL >=7.0 [id number] 05:06:00 Test Item Value Reference Range Comments FERRITIN (BEAKER) (test ubda=167) 1296 ng/mL 5-275 [id number] 04:46:00 Test Item Value Reference Range Comments D-DIMER QUANTITATIVE (BEAKER) (test ouhw=392) 7.77 MG/L FEU <0.50 Intended Use: The D-Dimer Assay can be used to aid in the diagnosis of Deep Vein Thrombosis (DVT) and Pulmonary Embolism Disease (PED).In patients with low pre-test probability, various studies concerning STA Liatest D-dimer test have reported that with a cutoff value of 0.50 MG/L FEU, the Negative Predictive Value (NPV) regarding the exclusion of thrombosis is within 95-100% range.RETICULOCYTE [id number] 04:40:00 Test Item Value Reference Range Comments RETICULOCYTE COUNT PCT (BEAKER) (test ywfz=333) 1.3 % 0.5-1.7 [id number] 04:40:00 Test Item Value Reference Range Comments FIBRINOGEN LEVEL (BEAKER) (test smmt=404) 612 mg/dl 225-434 IRON, TIBC, % SAT. (WITHOUT FERRITIN)2018-01-04 04:39:00 Test Item Value Reference Range Comments IRON (BEAKER) (test uobn=461) 26 ug/dL 40-160 TOTAL IRON BINDING CAPACITY (BEAKER) (test 255 ug/dL 250-450 htuw=682) IRON % SATURATION (2) (BEAKER) (test tjiu=3410) 10 % 20-55 [id number] 04:36:00 Test Item Value Reference Range Comments PARTIAL THROMBOPLASTIN TIME (BEAKER) (test 34.3 seconds 22.5-36.0 ohou=806) PROTHROMBIN [id number] 04:35:00 Test Item Value Reference Range Comments PROTIME (BEAKER) (test ddhz=741) 17.4 seconds 11.7-14.7 INR (BEAKER) (test jgxx=879) 1.4 <=5.9 RECOMMENDED COUMADIN/WARFARIN INR THERAPY RANGESSTANDARD DOSE: 2.0 - 3.0 Includes: PROPHYLAXIS forvenous thrombosis, systemic embolization; TREATMENT for venous thrombosis and/or pulmonary embolus.HIGH RISK: Target INR is 2.5-3.5 for patients with mechanical heart valves.LACTIC ACID, ARTERIAL, WHOLE [id number] 04:34:00 Test Item Value Reference Range Comments LACTATE BLOOD ARTERIAL (2) (BEAKER) (test 0.9 mmol/L 0.5-2.2 ejdm=3767) Effective 11/12/2015: Units/Reference Range ChangeNew: 0.5-2.2 mmol/L Previous: 5 -20 mg/dLBASIC METABOLIC [id number] 04:32:00 Test Item Value Reference Range Comments SODIUM (BEAKER) (test 136 meq/L 136-145 hatn=395) POTASSIUM (BEAKER) (test 4.5 meq/L 3.5-5.1 jqxb=468) CHLORIDE (BEAKER) (test 103 meq/L 98-107 zxyb=789) CO2 (BEAKER) (test 23 meq/L 22-29 chxr=037) BLOOD UREA NITROGEN 27 mg/dL 7-21 (BEAKER) (test rslo=615) CREATININE (BEAKER) (test 1.62 mg/dL 0.57-1.25 sjkc=751) GLUCOSE RANDOM (BEAKER) 114 mg/dL 70-105 (test pskj=141) CALCIUM (BEAKER) (test 8.5 mg/dL 8.4-10.2 ycqw=052) EGFR (BEAKER) (test 34 mL/min/1.73 sq m ESTIMATED GFR IS NOT ivye=0243) ACCURATE CREATININE CLEARANCE IN PREDICTING GLOMERULAR FILTRATION RATE. ESTIMATED GFR IS NOT APPLICABLE FOR DIALYSIS PATIENTS. [id number] 04:32:00 Test Item Value Reference Range Comments POTASSIUM (BEAKER) (test vflh=430) 4.5 meq/L 3.5-5.1 LACTATE DEHYDROGENASE (LDH)2018-01-04 04:32:00 Test Item Value Reference Range Comments LACTATE DEHYDROGENASE (BEAKER) (test xxje=332) 716 U/L 125-220 BLOOD [id number] 00:00:00 Test Item Value Reference Range Comments CULTURE (BEAKER) (test jbkv=6703) No growth in 5 days BLOOD [id number] 00:00:00 Test Item Value Reference Range Comments CULTURE (BEAKER) (test khvs=6585) No growth in 5 days POCT-GLUCOSE [id number] 23:54:00 Test Item Value Reference Range Comments POC-GLUCOSE METER (BEAKER) 144 mg/dL 70-110 TESTED AT [facility] [address] [facility] (test sieo=6911) [facility] [address] [id number] 23:50:00 Test Item Value Reference Range Comments POTASSIUM (BEAKER) (test jszr=327) 4.5 meq/L 3.5-5.1 CALCIUM, [id number] 23:47:00 Test Item Value Reference Range Comments CALCIUM IONIZED (BEAKER) (test fbvp=715) 1.13 mmol/L 1.12-1.27 PH, BLOOD (BEAKER) (test elbr=5706) 7.35 [id number] 19:25:00 Test Item Value Reference Range Comments POTASSIUM (BEAKER) (test izjk=798) 4.7 meq/L 3.5-5.1 [id number] 19:25:00 Test Item Value Reference Range Comments MAGNESIUM (BEAKER) (test vnrm=965) 2.1 mg/dL 1.6-2.6 [id number] 19:25:00 Test Item Value Reference Range Comments PHOSPHORUS (BEAKER) (test eehw=188) 4.4 mg/dL 2.3-4.7 [id number] 19:25:00 Test Item Value Reference Range Comments SODIUM (BEAKER) (test kmrd=791) 135 meq/L 136-145 PH, [id number] 19:05:00 Test Item Value Reference Range Comments PH ARTERIAL (BEAKER) (test dkfl=370) 7.36 7.35-7.45 BLOOD [id number] 18:37:00 Test Item Value Reference Range Comments CULTURE (BEAKER) (test llis=9031) No growth in 5 days PERIPHERAL BLOOD SMEAR - PATHOLOGIST [id number] 16:33:00 Test Item Value Reference Range Comments WBC MORPHOLOGY (BEAKER) (test Toxic Granulation nefy=2357) WBC MORPHOLOGY (BEAKER) (test Left Shift mayj=68473) PERIPHERAL SMR REVIEW (BEAKER) Cell counts confirmed. (test edsj=3775) [id number] (BEAKER) Brook Dunaway M.D. (test ncbj=9930) (electronic signature) [id number] 16:02:00 Test Item Value Reference Range Comments POTASSIUM (BEAKER) (test orke=292) 5.0 meq/L 3.5-5.1 CALCIUM, [id number] 15:45:00 Test Item Value Reference Range Comments CALCIUM IONIZED (BEAKER) (test xfxu=421) 1.13 mmol/L 1.12-1.27 PH, BLOOD (BEAKER) (test aigr=7668) 7.35 BLOOD GAS, [id number] 13:36:00 Test Item Value Reference Range Comments PH ARTERIAL (BEAKER) (test btzr=255) 7.35 7.35-7.45 PCO2 ARTERIAL (BEAKER) (test jotg=622) 50 mmHg 35-45 PO2 ARTERIAL (BEAKER) (test bhsl=238) 97 mmHg 80-90 O2 SATURATION ARTERIAL (BEAKER) (test lhxc=599) 97.1 % 96.0-97.0 HCO3 ARTERIAL (BEAKER) (test wkrn=228) 27 mmol/L 21-29 BASE EXCESS ARTERIAL (BEAKER) (test cvez=933) 0.7 mmol/L -2.0-3.0 PATIENT TEMPERATURE (BEAKER) (test kctb=1312) 36.5 C FIO2 (BEAKER) (test mcru=7370) 45.0 % [id number] 12:58:00 Test Item Value Reference Range Comments POTASSIUM (BEAKER) (test wrgj=138) 5.0 meq/L 3.5-5.1 CBC W/PLT COUNT & AUTO [id number] 10:49:00 Test Item Value Reference Range Comments WHITE BLOOD CELL COUNT (BEAKER) (test lwog=586) 47.1 K/ L 3.5-10.5 RED BLOOD CELL COUNT (BEAKER) (test xyno=241) 2.66 M/ L 3.93-5.22 HEMOGLOBIN (BEAKER) (test mkcw=353) 8.0 GM/DL 11.2-15.7 HEMATOCRIT (BEAKER) (test zwhc=706) 25.1 % 34.1-44.9 MEAN CORPUSCULAR VOLUME (BEAKER) (test litc=267) 94.4 fL 79.4-94.8 MEAN CORPUSCULAR HEMOGLOBIN (BEAKER) (test 30.1 pg 25.6-32.2 kcgr=044) MEAN CORPUSCULAR HEMOGLOBIN CONC (BEAKER) (test 31.9 GM/DL 32.2-35.5 hrlw=813) RED CELL DISTRIBUTION WIDTH (BEAKER) (test 16.5 % 11.7-14.4 wmin=462) PLATELET COUNT (BEAKER) (test njjj=773) 222 K/CU MM 150-450 MEAN PLATELET VOLUME (BEAKER) (test lgjx=737) 10.3 fL 9.4-12.3 NUCLEATED RED BLOOD CELLS (BEAKER) (test 0 /100 WBC 0-0 rhpg=508) (CELLAVISION MANUAL DIFF)2018-01-03 10:49:00 Test Item Value Reference Range Comments NEUTROPHILS - REL (CELLAVISION)(BEAKER) (test 50 % rxrk=8180) LYMPHOCYTES - REL (CELLAVISION)(BEAKER) (test 6 % ajvg=5997) MONOCYTES - REL (CELLAVISION)(BEAKER) (test 7 % ecil=4142) METAMYELOCYTES - REL (CELLAVISION)(BEAKER) (test 8 % 0-0 idqs=8473) MYELOCYTES - REL (CELLAVISION)(BEAKER) (test 19 % 0-0 hnya=3141) PROMYELOCYTES - REL (CELLAVSION)(BEAKER) (test 1 % 0-0 xojm=6211) BANDS - REL (CELLAVISION)(BEAKER) (test 10 % 0-10 nsow=8876) ATYPICAL LYMPHOCYTES - REL (CELLAVISION)(BEAKER) 1 % 0-0 (test fqrd=6817) NEUTROPHILS - ABS (CELLAVISION)(BEAKER) (test 23.55 K/ul 1.56-6.13 ekbd=0465) LYMPHOCYTES - ABS (CELLAVISION)(BEAKER) (test 2.83 K/ul 1.18-3.74 osgl=4286) MONOCYTES - ABS (CELLAVISION)(BEAKER) (test 3.30 K/uL 0.24-0.36 qfal=3541) METAMYELOCYTES - ABS (CELLAVISION)(BEAKER) (test 3.77 K/uL 0.00-0.00 ptiq=3472) MYELOCYTES-ABS (CELLAVISION)(BEAKER) (test 8.95 K/uL 0.00-0.00 hiqd=4870) PROMYELOCYTES - ABS (CELLAVISION)(BEAKER) (test 0.47 K/uL 0.00-0.00 sefg=0637) BANDS - ABS (CELLAVISION)(BEAKER) (test 4.71 K/uL 0.00-0.80 qqad=5676) ATYPICAL LYMPHOCYTES - ABS (CELLAVISION)(BEAKER) 0.47 K/uL 0.00-0.00 (test nqbo=7597) TOTAL COUNTED (BEAKER) (test ppkr=6088) 100 SMUDGE CELLS (BEAKER) (test gkus=9556) Present GIANT PLATELETS (BEAKER) (test bprn=942) Present ANISOCYTOSIS (BEAKER) (test uplt=350) 1+ few MICROCYTES (BEAKER) (test uokf=997) 1+ few PLATELET CONCENTRATION (CELLAVISION)(BEAKER) Adequate (test kbnb=0353) Received comment: User comments: Slide comments:ANTITHROMBIN [id number] 09:33 :00 Test Item Value Reference Range Comments ANTITHROMBIN III ACTIVITY (BEAKER) (test fkqo=419) 85.0 % 80.0-120.0 HEPARIN ASSAY - [id number] 07:53:00 Test Item Value Reference Range Comments UNFRACTIONATED HEPARIN-ANTI 10A (BEAKER) (test < u/ml 0.30-0.70 pkac=9303) Recommendations for Monitoring Unfractionated Heparin Therapeutic Range: 0.3- 0.7 u/mL with continuous IV infusionTHROMBOELASTOGRAPH (TEG)2018-01-03 07:46:00 Test Item Value Reference Range Comments TEG ACTIVATED CLOTTING TIME (BEAKER) (test 5.4 minutes 4.0-7.0 tctc=7733) TEG FIBRINOGEN ACTIVITY (BEAKER) (test 73.6 degrees 61.0-73.0 qule=7493) TEG PLT. AGGREGATION (BEAKER) (test jmuy=1475) 66.5 MM 55.0-65.0 TEG FIBRINOLYSIS (BEAKER) (test uwsu=1639) 13.4 % 0.0-5.0 TGH ACTIVATED CLOTTING TIME (BEAKER) (test 5.8 minutes 4.0-7.0 qsht=4422) TGH FIBRINOGEN ACTIVITY (BEAKER) (test 73.1 degrees 61.0-73.0 dsjy=2319) TGH PLT. AGGREGATION (BEAKER) (test bdsu=2067) 65.6 MM 55.0-65.0 TGH FIBRINOLYSIS (BEAKER) (test kuju=2257) 0.0 % 0.0-5.0 RAD, CHEST, 1 VIEW, NON [id number] 06:16:00Reason for exam:->ecmo, intubatedShould this be performed at the bedside?->YesFINAL REPORT Chest one view. Clinical history: ecmo, intubated Comparison: Chest radiograph 01/02/2018, 9:54 PM Technique: A single frontal view of the chest was obtained. Findings: Cardiomediastinal contours are unchanged. Support devices are in stable position. There are diffuse bilateral alveolar opacities, mildly increased in the interval, which may represent pulmonary edema and/or pneumonia. There are small bilateral pleural effusions. There is no pneumothorax. Signed: Shad Joseph Verified Date/Time: 2017 06:16:44 Reading Location: [address] Transitional Reading Room [id number] 06:12:00 Test Item Value Reference Range Comments POTASSIUM (BEAKER) (test lajl=632) 4.5 meq/L 3.5-5.1 [id number] 06:12:00 Test Item Value Reference Range Comments MAGNESIUM (BEAKER) (test vygs=140) 2.1 mg/dL 1.6-2.6 [id number] 06:12:00 Test Item Value Reference Range Comments PHOSPHORUS (BEAKER) (test dgtu=243) 2.5 mg/dL 2.3-4.7 [id number] 06:12:00 Test Item Value Reference Range Comments SODIUM (BEAKER) (test ftqr=500) 138 meq/L 136-145 BASIC METABOLIC [id number] 06:12:00 Test Item Value Reference Range Comments SODIUM (BEAKER) (test 138 meq/L 136-145 djjp=666) POTASSIUM (BEAKER) (test 4.5 meq/L 3.5-5.1 wtyp=138) CHLORIDE (BEAKER) (test 103 meq/L 98-107 yjdt=366) CO2 (BEAKER) (test 25 meq/L 22-29 reef=477) BLOOD UREA NITROGEN 28 mg/dL 7-21 (BEAKER) (test dvlc=661) CREATININE (BEAKER) (test 1.84 mg/dL 0.57-1.25 flbn=279) GLUCOSE RANDOM (BEAKER) 143 mg/dL 70-105 (test vckc=432) CALCIUM (BEAKER) (test 8.8 mg/dL 8.4-10.2 udgk=675) EGFR (BEAKER) (test 30 mL/min/1.73 sq m ESTIMATED GFR IS NOT tujh=2993) ACCURATE CREATININE CLEARANCE IN PREDICTING GLOMERULAR FILTRATION RATE. ESTIMATED GFR IS NOT APPLICABLE FOR DIALYSIS PATIENTS. LACTATE DEHYDROGENASE (LDH)2018-01-03 06:12:00 Test Item Value Reference Range Comments LACTATE DEHYDROGENASE (BEAKER) (test ngwi=277) 640 U/L 125-220 [id number] 06:03:00 Test Item Value Reference Range Comments D-DIMER QUANTITATIVE (BEAKER) (test nwau=263) 4.96 MG/L FEU <0.50 Intended Use: The D-Dimer Assay can be used to aid in the diagnosis of Deep Vein Thrombosis (DVT) and Pulmonary Embolism Disease (PED).In patients with low pre-test probability, various studies concerning STA Liatest D-dimer test have reported that with a cutoff value of 0.50 MG/L FEU, the Negative Predictive Value (NPV) regarding the exclusion of thrombosis is within 95-100% range.LACTIC ACID, ARTERIAL, WHOLE [id number] 06:02:00 Test Item Value Reference Range Comments LACTATE BLOOD ARTERIAL (2) (BEAKER) (test 1.3 mmol/L 0.5-2.2 ozkr=6761) Effective 11/12/2015: Units/Reference Range ChangeNew: 0.5-2.2 mmol/L Previous: 5 -20 mg/[id number] 05:53:00 Test Item Value Reference Range Comments FIBRINOGEN LEVEL (BEAKER) (test qxyv=074) 665 mg/dl 225-434 [id number] 05:53:00 Test Item Value Reference Range Comments PARTIAL THROMBOPLASTIN TIME (BEAKER) (test 31.2 seconds 22.5-36.0 oeje=741) PROTHROMBIN [id number] 05:51:00 Test Item Value Reference Range Comments PROTIME (BEAKER) (test aony=531) 17.1 seconds 11.7-14.7 INR (BEAKER) (test juhw=090) 1.4 <=5.9 RECOMMENDED COUMADIN/WARFARIN INR THERAPY RANGESSTANDARD DOSE: 2.0 - 3.0 Includes: PROPHYLAXIS forvenous thrombosis, systemic embolization; TREATMENT for venous thrombosis and/or pulmonary embolus.HIGH RISK: Target INR is 2.5-3.5 for patients with mechanical heart valves.CALCIUM, [id number] 05:50:00 Test Item Value Reference Range Comments CALCIUM IONIZED (BEAKER) (test etdd=377) 1.17 mmol/L 1.12-1.27 PH, BLOOD (BEAKER) (test jpfq=7013) 7.38 BLOOD GAS, [id number] 05:48:00 Test Item Value Reference Range Comments PH ARTERIAL (BEAKER) (test swje=260) 7.38 7.35-7.45 PCO2 ARTERIAL (BEAKER) (test jhcv=063) 46 mmHg 35-45 PO2 ARTERIAL (BEAKER) (test lupa=522) 76 mmHg 80-90 O2 SATURATION ARTERIAL (BEAKER) (test fzaw=678) 95.1 % 96.0-97.0 HCO3 ARTERIAL (BEAKER) (test geht=798) 27 mmol/L 21-29 BASE EXCESS ARTERIAL (BEAKER) (test xvqx=975) 1.2 mmol/L -2.0-3.0 PATIENT TEMPERATURE (BEAKER) (test ygih=9649) 36.7 C FIO2 (BEAKER) (test fnyc=6230) 50.0 % PH, [id number] 05:44:00 Test Item Value Reference Range Comments PH ARTERIAL (BEAKER) (test yeyo=429) 7.38 7.35-7.45 SODIUM NA-STAT [id number] 01:27:00 Test Item Value Reference Range Comments SODIUM (BEAKER) (test cdzv=293) 135 meq/L 135-148 POTASSIUM-STAT [id number] 01:27:00 Test Item Value Reference Range Comments POTASSIUM (BEAKER) (test kfly=976) 4.4 meq/L 3.6-5.5 CALCIUM, [id number] 01:27:00 Test Item Value Reference Range Comments CALCIUM IONIZED (BEAKER) (test iahg=727) 1.15 mmol/L 1.12-1.27 PH, BLOOD (BEAKER) (test rtqs=7515) 7.43 BLOOD GAS, [id number] 01:27:00 Test Item Value Reference Range Comments PH ARTERIAL (BEAKER) (test jyxx=255) 7.43 7.35-7.45 PCO2 ARTERIAL (BEAKER) (test zotg=347) 41 mmHg 35-45 PO2 ARTERIAL (BEAKER) (test twje=980) 105 mmHg 80-90 O2 SATURATION ARTERIAL (BEAKER) (test xyvl=587) 97.9 % 96.0-97.0 HCO3 ARTERIAL (BEAKER) (test mnsn=519) 26 mmol/L 21-29 BASE EXCESS ARTERIAL (BEAKER) (test yzph=005) 1.8 mmol/L -2.0-3.0 PATIENT TEMPERATURE (BEAKER) (test bvkd=9310) 37.1 C FIO2 (BEAKER) (test xvgr=8815) 70.0 % GLUCOSE-STAT [id number] 01:27:00 Test Item Value Reference Range Comments GLUCOSE RANDOM (BEAKER) (test shmm=807) 115 mg/dL 70-110 HGB/HCT (H&H) - STAT [id number] 01:27:00 Test Item Value Reference Range Comments HEMOGLOBIN (BEAKER) (test krhb=043) 8.1 g/dL 12.0-15.0 HEMATOCRIT (BEAKER) (test yjvy=743) 24.0 % 36.0-45.0 RAD, CHEST, 1 VIEW, NON [id number] 22:40:00Reason for exam:->Left IJ Dialysis PlacementShould this be performed at the bedside?->YesFINAL REPORT EXAMINATION: AP PORTABLE CHEST RADIOGRAPH CLINICAL INDICATION:Left internal jugular dialysis catheter placement. FINDINGS: Compared with 12/13/2017. 1811 hours. Tipof the new left jugular dialysis catheter projects along the expected course of the superior vena cava. Previously placed small caliber left IJ line has been removed. Support tube and catheter positions are otherwise unchanged. Relatively stable interstitial and alveolar opacities are again noted throughout both lungs. Findings may reflect a combination of pulmonary edema and atelectasis. An underlying pneumonia cannot be excluded. Small superimposed bilateral pleural effusions are also again suspected, stable. Cardiac and mediastinal contours are unchanged. No evidence of a pneumothorax. IMPRESSION: In summary, interval placement of a left jugular dialysis catheter. No pneumothorax. Constellation of findings concerning for fluid overload-heart failure. Pneumonia cannot be excluded. Signed: Milind Laguerre MDReport Verified Date/Time: 01/02/2018 22:40:02 Reading Location: [address] [id number] 21:11:00 Test Item Value Reference Range Comments POTASSIUM (BEAKER) (test shkf=487) 4.8 meq/L 3.5-5.1 [id number] 21:11:00 Test Item Value Reference Range Comments MAGNESIUM (BEAKER) (test osah=716) 2.1 mg/dL 1.6-2.6 [id number] 21:11:00 Test Item Value Reference Range Comments PHOSPHORUS (BEAKER) (test kaos=324) 3.1 mg/dL 2.3-4.7 [id number] 21:11:00 Test Item Value Reference Range Comments SODIUM (BEAKER) (test nqlt=258) 137 meq/L 136-145 [id number] 20:47:00 Test Item Value Reference Range Comments PARTIAL THROMBOPLASTIN TIME (BEAKER) (test 31.5 seconds 22.5-36.0 fayn=954) HGB/HCT (H&H) - STAT [id number] 20:39:00 Test Item Value Reference Range Comments HEMOGLOBIN (BEAKER) (test wlyf=726) 8.1 g/dL 12.0-15.0 HEMATOCRIT (BEAKER) (test lgpr=916) 24.0 % 36.0-45.0 CALCIUM, [id number] 20:39:00 Test Item Value Reference Range Comments CALCIUM IONIZED (BEAKER) (test bqkr=232) 1.14 mmol/L 1.12-1.27 PH, BLOOD (BEAKER) (test qoch=1986) 7.46 POTASSIUM-STAT [id number] 20:38:00 Test Item Value Reference Range Comments POTASSIUM (BEAKER) (test hgil=314) 4.5 meq/L 3.6-5.5 GLUCOSE-STAT [id number] 20:38:00 Test Item Value Reference Range Comments GLUCOSE RANDOM (BEAKER) (test hbqh=663) 150 mg/dL 70-110 BLOOD GAS, [id number] 19:49:00 Test Item Value Reference Range Comments PH ARTERIAL (BEAKER) (test lfjm=112) 7.47 7.35-7.45 PCO2 ARTERIAL (BEAKER) (test bbux=088) 37 mmHg 35-45 PO2 ARTERIAL (BEAKER) (test yqlj=847) 114 mmHg 80-90 O2 SATURATION ARTERIAL (BEAKER) (test okme=645) 98.4 % 96.0-97.0 HCO3 ARTERIAL (BEAKER) (test btgg=721) 26 mmol/L 21-29 BASE EXCESS ARTERIAL (BEAKER) (test wcrp=410) 2.5 mmol/L -2.0-3.0 PATIENT TEMPERATURE (BEAKER) (test sbrv=7984) 36.9 C FIO2 (BEAKER) (test htvd=6658) 60.0 % PH, [id number] 19:49:00 Test Item Value Reference Range Comments PH ARTERIAL (BEAKER) (test epcv=261) 7.47 7.35-7.45 RAD, CHEST, 1 VIEW, NON [id number] 18:55:00Reason for exam:->check picc placementShould this be performed at the bedside?->YesFINAL REPORT TECHNIQUE: Frontal view of the chest. INDICATION: 47-year-old woman after PICC placement. COMPARISON: Chest radiograph from earlier same date. FINDINGS: LINES/TUBES: New right upper extremity PICC, the tip projects over the expected region of the mid superior vena cava. Interval removal of the tubing projecting over the medial right hemithorax. Other lines/tubes are unchanged. LUNGS: Persistent central pulmonary venous congestion with bilateral airspace opacities. PLEURA: No pneumothorax or significant pleural effusion. HEART AND MEDIASTINUM: The cardiomediastinal silhouette is unchanged. SOFT TISSUES AND BONES: Unremarkable. IMPRESSION:Lines/tubes as above. Otherwise, no significant change since chest radiograph from earlier same date. Signed: Tashi Heardeport Verified Date/Time: 01/02/2018 18:55:41 Reading Location: [facility] [id number] Consult Reading Room [id number] 17:00:00 Test Item Value Reference Range Comments POTASSIUM (BEAKER) (test bdhn=706) 5.0 meq/L 3.5-5.1 CALCIUM, [id number] 16:32:00 Test Item Value Reference Range Comments CALCIUM IONIZED (BEAKER) (test hurx=622) 1.15 mmol/L 1.12-1.27 PH, BLOOD (BEAKER) (test xxpo=1643) 7.38 [id number] 13:24:00 Test Item Value Reference Range Comments PARTIAL THROMBOPLASTIN TIME (BEAKER) (test 47.8 seconds 22.5-36.0 siml=390) BLOOD GAS, [id number] 13:02:00 Test Item Value Reference Range Comments PH ARTERIAL (BEAKER) (test xlwv=509) 7.39 7.35-7.45 PCO2 ARTERIAL (BEAKER) (test tadq=962) 46 mmHg 35-45 PO2 ARTERIAL (BEAKER) (test wttc=288) 151 mmHg 80-90 O2 SATURATION ARTERIAL (BEAKER) (test cvpm=236) 98.9 % 96.0-97.0 HCO3 ARTERIAL (BEAKER) (test ztvi=047) 27 mmol/L 21-29 BASE EXCESS ARTERIAL (BEAKER) (test yxjv=409) 1.9 mmol/L -2.0-3.0 PATIENT TEMPERATURE (BEAKER) (test znxm=1368) 36.8 C FIO2 (BEAKER) (test wxkd=7984) 60.0 % [id number] 12:30:00 Test Item Value Reference Range Comments POTASSIUM (BEAKER) (test scob=090) 4.9 meq/L 3.5-5.1 Check Serum Magnesium level 2 hours after IV magnesium replacement. May repeat dose X 1 if serum magnesium is less than 2.0 mg/[id number] 12:30:00 Test Item Value Reference Range Comments MAGNESIUM (BEAKER) (test vejc=419) 1.8 mg/dL 1.6-2.6 Check Serum Magnesium level 2 hours after IV magnesium replacement. May repeat dose X 1 if serum magnesium is less than 2.0 mg/dLPOCT-GLUCOSE [id number] 12:10:00 Test Item Value Reference Range Comments POC-GLUCOSE METER (BEAKER) 174 mg/dL 70-110 TESTED AT [facility] [address] [facility] (test yaoe=2182) [facility] [address] BLOOD GAS, [id number] 12:08:00 Test Item Value Reference Range Comments PH ARTERIAL (BEAKER) (test wbye=736) 7.41 7.35-7.45 PCO2 ARTERIAL (BEAKER) (test alpj=130) 49 mmHg 35-45 PO2 ARTERIAL (BEAKER) (test qnfx=231) 147 mmHg 80-90 O2 SATURATION ARTERIAL (BEAKER) (test nnda=085) 98.9 % 96.0-97.0 HCO3 ARTERIAL (BEAKER) (test puos=349) 30 mmol/L 21-29 BASE EXCESS ARTERIAL (BEAKER) (test godm=550) 4.9 mmol/L -2.0-3.0 PATIENT TEMPERATURE (BEAKER) (test sznk=8852) 36.9 C FIO2 (BEAKER) (test gtdt=8001) 60.0 % [id number] 11:31:00 Test Item Value Reference Range Comments FIBRINOGEN LEVEL (BEAKER) (test igrt=805) 674 mg/dl 225-434 PROTHROMBIN [id number] 11:30:00 Test Item Value Reference Range Comments PROTIME (BEAKER) (test wdxy=621) 17.1 seconds 11.7-14.7 INR (BEAKER) (test ckpx=347) 1.4 <=5.9 RECOMMENDED COUMADIN/WARFARIN INR THERAPY RANGESSTANDARD DOSE: 2.0 - 3.0 Includes: PROPHYLAXIS forvenous thrombosis, systemic embolization; TREATMENT for venous thrombosis and/or pulmonary embolus.HIGH RISK: Target INR is 2.5-3.5 for patients with mechanical heart valves.BLOOD GAS, [id number] 11:17:00 Test Item Value Reference Range Comments PH ARTERIAL (BEAKER) (test uroq=009) 7.38 7.35-7.45 PCO2 ARTERIAL (BEAKER) (test kcev=630) 50 mmHg 35-45 PO2 ARTERIAL (BEAKER) (test ywrq=375) 123 mmHg 80-90 O2 SATURATION ARTERIAL (BEAKER) (test vrbi=472) 98.4 % 96.0-97.0 HCO3 ARTERIAL (BEAKER) (test xkhz=218) 29 mmol/L 21-29 BASE EXCESS ARTERIAL (BEAKER) (test gtif=699) 2.7 mmol/L -2.0-3.0 PATIENT TEMPERATURE (BEAKER) (test mpyk=7807) 36.5 C FIO2 (BEAKER) (test yoit=5981) 60.0 % CBC W/PLT COUNT & AUTO [id number] 10:17:00 Test Item Value Reference Range Comments WHITE BLOOD CELL COUNT (BEAKER) (test hcwi=817) 44.2 K/ L 3.5-10.5 RED BLOOD CELL COUNT (BEAKER) (test sswf=832) 2.54 M/ L 3.93-5.22 HEMOGLOBIN (BEAKER) (test xcir=069) 7.7 GM/DL 11.2-15.7 HEMATOCRIT (BEAKER) (test ozcr=147) 23.8 % 34.1-44.9 MEAN CORPUSCULAR VOLUME (BEAKER) (test orbh=829) 93.7 fL 79.4-94.8 MEAN CORPUSCULAR HEMOGLOBIN (BEAKER) (test 30.3 pg 25.6-32.2 dpfj=087) MEAN CORPUSCULAR HEMOGLOBIN CONC (BEAKER) (test 32.4 GM/DL 32.2-35.5 ndkn=476) RED CELL DISTRIBUTION WIDTH (BEAKER) (test 16.8 % 11.7-14.4 gftt=100) PLATELET COUNT (BEAKER) (test iihi=640) 142 K/CU MM 150-450 MEAN PLATELET VOLUME (BEAKER) (test kgfr=294) 10.7 fL 9.4-12.3 NUCLEATED RED BLOOD CELLS (BEAKER) (test 0 /100 WBC 0-0 vkjp=018) (CELLAVISION MANUAL DIFF)2018-01-02 10:17:00 Test Item Value Reference Range Comments NEUTROPHILS - REL (CELLAVISION)(BEAKER) (test 51 % unhn=6932) LYMPHOCYTES - REL (CELLAVISION)(BEAKER) (test 9 % vmqv=7329) MONOCYTES - REL (CELLAVISION)(BEAKER) (test 7 % zzje=4509) METAMYELOCYTES - REL (CELLAVISION)(BEAKER) (test 6 % 0-0 piuy=2539) MYELOCYTES - REL (CELLAVISION)(BEAKER) (test 10 % 0-0 drbe=3781) PROMYELOCYTES - REL (CELLAVSION)(BEAKER) (test 7 % 0-0 jrhb=1454) BANDS - REL (CELLAVISION)(BEAKER) (test 12 % 0-10 gmpv=7912) NEUTROPHILS - ABS (CELLAVISION)(BEAKER) (test 22.54 K/ul 1.56-6.13 vwjp=8506) LYMPHOCYTES - ABS (CELLAVISION)(BEAKER) (test 3.98 K/ul 1.18-3.74 yeww=8413) MONOCYTES - ABS (CELLAVISION)(BEAKER) (test 3.09 K/uL 0.24-0.36 rbxx=1933) METAMYELOCYTES - ABS (CELLAVISION)(BEAKER) (test 2.65 K/uL 0.00-0.00 ipze=1363) MYELOCYTES-ABS (CELLAVISION)(BEAKER) (test 4.42 K/uL 0.00-0.00 rgcg=6191) PROMYELOCYTES - ABS (CELLAVISION)(BEAKER) (test 3.09 K/uL 0.00-0.00 jmsw=8107) BANDS - ABS (CELLAVISION)(BEAKER) (test 5.30 K/uL 0.00-0.80 cpbm=3406) TOTAL COUNTED (BEAKER) (test qjwa=9177) 100 LARGE PLT(BEAKER) (test cnqk=5355) Present TOXIC GRANULATION (BEAKER) (test uhfk=753) Present ANISOCYTOSIS (BEAKER) (test jusy=472) 1+ few MICROCYTES (BEAKER) (test ysqc=394) 1+ few ARTIFACT (CELLAVISION)(BEAKER) (test xrng=5379) Present PLATELET CONCENTRATION (CELLAVISION)(BEAKER) Decreased (test nemd=6828) Received comment: User comments: Slide comments:BLOOD GAS, [id number] 09 :54:00 Test Item Value Reference Range Comments PH ARTERIAL (BEAKER) (test rtxq=327) 7.39 7.35-7.45 PCO2 ARTERIAL (BEAKER) (test yimi=481) 47 mmHg 35-45 PO2 ARTERIAL (BEAKER) (test fuvj=589) 169 mmHg 80-90 O2 SATURATION ARTERIAL (BEAKER) (test vtck=511) 99.1 % 96.0-97.0 HCO3 ARTERIAL (BEAKER) (test bexa=601) 28 mmol/L 21-29 BASE EXCESS ARTERIAL (BEAKER) (test vpkm=321) 2.5 mmol/L -2.0-3.0 PATIENT TEMPERATURE (BEAKER) (test wmct=2265) 36.5 C FIO2 (BEAKER) (test hjtn=1471) 60.0 % HIV-1 ANTIGEN WITH HIV-1/2 [id number] 08:51:00 Test Item Value Reference Range Comments HIV-1 ANTIGEN WITH HIV 1\\T\\2 ANTIBODY (2) Nonreactive Nonreactive (BEAKER) (test omxv=1924) ANTITHROMBIN [id number] 08:41:00 Test Item Value Reference Range Comments ANTITHROMBIN III ACTIVITY (BEAKER) (test aven=662) 72.0 % 80.0-120.0 ANTITHROMBIN [id number] 08:41:00 Test Item Value Reference Range Comments ANTITHROMBIN III ACTIVITY (BEAKER) (test nzrb=009) 77.0 % 80.0-120.0 HEPARIN ASSAY - [id number] 08:14:00 Test Item Value Reference Range Comments UNFRACTIONATED HEPARIN-ANTI 10A (BEAKER) (test < u/ml 0.30-0.70 omhh=3339) Recommendations for Monitoring Unfractionated Heparin Therapeutic Range: 0.3- 0.7 u/mL with continuous IV infusionBLOOD GAS, [id number] 08:07:00 Test Item Value Reference Range Comments PH ARTERIAL (BEAKER) (test kwjc=542) 7.42 7.35-7.45 PCO2 ARTERIAL (BEAKER) (test ewzo=146) 43 mmHg 35-45 PO2 ARTERIAL (BEAKER) (test vtec=446) 154 mmHg 80-90 O2 SATURATION ARTERIAL (BEAKER) (test nsfq=080) 99.0 % 96.0-97.0 HCO3 ARTERIAL (BEAKER) (test koxo=125) 27 mmol/L 21-29 BASE EXCESS ARTERIAL (BEAKER) (test eurc=488) 2.4 mmol/L -2.0-3.0 PATIENT TEMPERATURE (BEAKER) (test axug=3994) 36.5 C FIO2 (BEAKER) (test feuw=1225) 50.0 % RAD, CHEST, 1 VIEW, NON [id number] 07:45:00Reason for exam:->ecmo, intubatedShould this be performed at the bedside?->YesFINAL REPORT Chest one view compared to January 01 Discussion: There is corrected positioning of left IJ line tip. Other support tubes and cardiovascular tubing bilateral airspace opacities are overall similar. No gross effusion or pneumothorax. Signed: Jony Mcfadden Verified Date/Time: 01/02/2018 07: 45:55 Reading Location: [facility] Radiology Reading Room THROMBOELASTOGRAPH (TEG)2018-01-02 07:28:00 Test Item Value Reference Range Comments TEG ACTIVATED CLOTTING TIME (BEAKER) (test 14.5 minutes 4.0-7.0 gsdf=0326) TEG FIBRINOGEN ACTIVITY (BEAKER) (test 48.6 degrees 61.0-73.0 fzmk=3143) TEG PLT. AGGREGATION (BEAKER) (test dgzr=2128) 70.3 MM 55.0-65.0 TEG FIBRINOLYSIS (BEAKER) (test twgn=7486) 0.0 % 0.0-5.0 TGH ACTIVATED CLOTTING TIME (BEAKER) (test 7.9 minutes 4.0-7.0 fqkr=0298) TGH FIBRINOGEN ACTIVITY (BEAKER) (test 69.4 degrees 61.0-73.0 yrrz=3274) TGH PLT. AGGREGATION (BEAKER) (test pelp=1660) 69.0 MM 55.0-65.0 TGH FIBRINOLYSIS (BEAKER) (test hxuh=0728) 0.0 % 0.0-5.0 BLOOD [id number] 06:00:00 Test Item Value Reference Range Comments CULTURE (BEAKER) (test lvre=4291) No growth in 5 days BLOOD GAS, [id number] 05:50:00 Test Item Value Reference Range Comments PH ARTERIAL (BEAKER) (test ryxr=197) 7.38 7.35-7.45 PCO2 ARTERIAL (BEAKER) (test kkus=154) 50 mmHg 35-45 PO2 ARTERIAL (BEAKER) (test hrqm=337) 460 mmHg 80-90 O2 SATURATION ARTERIAL (BEAKER) (test ydsb=046) 99.8 % 96.0-97.0 HCO3 ARTERIAL (BEAKER) (test phoe=802) 29 mmol/L 21-29 BASE EXCESS ARTERIAL (BEAKER) (test sudc=841) 2.9 mmol/L -2.0-3.0 PATIENT TEMPERATURE (BEAKER) (test qelv=4920) 36.5 C FIO2 (BEAKER) (test dpwn=9615) 100.0 % [id number] 05:44:00 Test Item Value Reference Range Comments D-DIMER QUANTITATIVE (BEAKER) (test okuk=295) 2.52 MG/L FEU <0.50 Intended Use: The D-Dimer Assay can be used to aid in the diagnosis of Deep Vein Thrombosis (DVT) and Pulmonary Embolism Disease (PED).In patients with low pre-test probability, various studies concerning STA Liatest D-dimer test have reported that with a cutoff value of 0.50 MG/L FEU, the Negative Predictive Value (NPV) regarding the exclusion of thrombosis is within 95-100% range.[id number] 05:42:00 Test Item Value Reference Range Comments PARTIAL THROMBOPLASTIN TIME (BEAKER) (test 46.9 seconds 22.5-36.0 zezx=186) BASIC METABOLIC [id number] 05:40:00 Test Item Value Reference Range Comments SODIUM (BEAKER) (test 139 meq/L 136-145 popn=299) POTASSIUM (BEAKER) (test 4.7 meq/L 3.5-5.1 sluh=303) CHLORIDE (BEAKER) (test 104 meq/L 98-107 fyfi=103) CO2 (BEAKER) (test 26 meq/L 22-29 wvev=827) BLOOD UREA NITROGEN 23 mg/dL 7-21 (BEAKER) (test wraa=658) CREATININE (BEAKER) (test 1.41 mg/dL 0.57-1.25 gpek=629) GLUCOSE RANDOM (BEAKER) 138 mg/dL 70-105 (test mnhn=410) CALCIUM (BEAKER) (test 8.7 mg/dL 8.4-10.2 rfeq=426) EGFR (BEAKER) (test mL/min/1.73 sq m INSUFFICIENT CLINICAL DATA ywef=9151) TO CALCULATE ESTIMATED GFR. [id number] 05:39:00 Test Item Value Reference Range Comments POTASSIUM (BEAKER) (test zhiu=717) 4.7 meq/L 3.5-5.1 [id number] 05:39:00 Test Item Value Reference Range Comments MAGNESIUM (BEAKER) (test fezb=193) 1.9 mg/dL 1.6-2.6 [id number] 05:39:00 Test Item Value Reference Range Comments PHOSPHORUS (BEAKER) (test xkqw=756) 2.7 mg/dL 2.3-4.7 [id number] 05:39:00 Test Item Value Reference Range Comments SODIUM (BEAKER) (test sygv=219) 139 meq/L 136-145 HEPATIC FUNCTION [id number] 05:39:00 Test Item Value Reference Range Comments TOTAL PROTEIN (BEAKER) (test nwdh=817) 5.1 gm/dL 6.0-8.3 ALBUMIN (BEAKER) (test qeoi=6301) 2.3 g/dL 3.5-5.0 BILIRUBIN TOTAL (BEAKER) (test ghrd=534) 0.9 mg/dL 0.2-1.2 BILIRUBIN DIRECT (BEAKER) (test obcv=303) 0.7 mg/dL 0.1-0.5 ALKALINE PHOSPHATASE (BEAKER) (test oore=964) 88 U/L 40-150 AST (SGOT) (BEAKER) (test awql=173) 35 U/L 5-34 ALT (SGPT) (BEAKER) (test absj=327) 22 U/L 6-55 LACTATE DEHYDROGENASE (LDH)2018-01-02 05:39:00 Test Item Value Reference Range Comments LACTATE DEHYDROGENASE (BEAKER) (test dwaf=878) 601 U/L 125-220 LACTIC ACID, ARTERIAL, WHOLE [id number] 05:31:00 Test Item Value Reference Range Comments LACTATE BLOOD ARTERIAL (2) (BEAKER) (test 0.9 mmol/L 0.5-2.2 haiq=5169) Effective 11/12/2015: Units/Reference Range ChangeNew: 0.5-2.2 mmol/L Previous: 5 -20 mg/dLCALCIUM, [id number] 05:28:00 Test Item Value Reference Range Comments CALCIUM IONIZED (BEAKER) (test crrm=139) 1.14 mmol/L 1.12-1.27 PH, BLOOD (BEAKER) (test fnjx=8767) 7.42 HGB/HCT (H&H) - STAT [id number] 05:27:00 Test Item Value Reference Range Comments HEMOGLOBIN (BEAKER) (test mjlh=933) 8.5 g/dL 12.0-15.0 HEMATOCRIT (BEAKER) (test iidw=509) 25.0 % 36.0-45.0 GLUCOSE-STAT [id number] 05:27:00 Test Item Value Reference Range Comments GLUCOSE RANDOM (BEAKER) (test yifn=831) 140 mg/dL 70-110 BLOOD GAS, [id number] 05:27:00 Test Item Value Reference Range Comments PH ARTERIAL (BEAKER) (test iwcb=179) 7.41 7.35-7.45 PCO2 ARTERIAL (BEAKER) (test yanx=746) 44 mmHg 35-45 PO2 ARTERIAL (BEAKER) (test tqwy=917) 120 mmHg 80-90 O2 SATURATION ARTERIAL (BEAKER) (test kldj=166) 98.4 % 96.0-97.0 HCO3 ARTERIAL (BEAKER) (test mkxy=803) 28 mmol/L 21-29 BASE EXCESS ARTERIAL (BEAKER) (test nfwo=846) 3.0 mmol/L -2.0-3.0 PATIENT TEMPERATURE (BEAKER) (test yxgf=5897) 36.8 C FIO2 (BEAKER) (test wtrp=1221) 50.0 % PH, [id number] 05:25:00 Test Item Value Reference Range Comments PH ARTERIAL (BEAKER) (test gcve=108) 7.41 7.35-7.45 SODIUM NA-STAT [id number] 05:25:00 Test Item Value Reference Range Comments SODIUM (BEAKER) (test wrsu=529) 136 meq/L 135-148 POTASSIUM-STAT [id number] 05:25:00 Test Item Value Reference Range Comments POTASSIUM (BEAKER) (test bmrh=884) 4.6 meq/L 3.6-5.5 BLOOD GAS, [id number] 01:12:00 Test Item Value Reference Range Comments PH ARTERIAL (BEAKER) (test lvip=490) 7.42 7.35-7.45 PCO2 ARTERIAL (BEAKER) (test cqxz=919) 42 mmHg 35-45 PO2 ARTERIAL (BEAKER) (test fdoj=510) 161 mmHg 80-90 O2 SATURATION ARTERIAL (BEAKER) (test bvhs=042) 99.1 % 96.0-97.0 HCO3 ARTERIAL (BEAKER) (test kmxh=325) 27 mmol/L 21-29 BASE EXCESS ARTERIAL (BEAKER) (test gdyu=203) 2.3 mmol/L -2.0-3.0 PATIENT TEMPERATURE (BEAKER) (test kirw=6339) 36.3 C FIO2 (BEAKER) (test jnho=2574) 50.0 % [id number] 22:10:00 Test Item Value Reference Range Comments POTASSIUM (BEAKER) (test rfsi=090) 5.0 meq/L 3.5-5.1 [id number] 22:10:00 Test Item Value Reference Range Comments MAGNESIUM (BEAKER) (test uuph=465) 2.1 mg/dL 1.6-2.6 [id number] 22:10:00 Test Item Value Reference Range Comments PHOSPHORUS (BEAKER) (test imun=124) 2.8 mg/dL 2.3-4.7 [id number] 22:10:00 Test Item Value Reference Range Comments SODIUM (BEAKER) (test kcig=504) 139 meq/L 136-145 [id number] 22:08:00 Test Item Value Reference Range Comments PARTIAL THROMBOPLASTIN TIME (BEAKER) (test 36.9 seconds 22.5-36.0 pxxr=947) BLOOD GAS, [id number] 21:44:00 Test Item Value Reference Range Comments PH ARTERIAL (BEAKER) (test hyem=828) 7.39 7.35-7.45 PCO2 ARTERIAL (BEAKER) (test jqfa=204) 47 mmHg 35-45 PO2 ARTERIAL (BEAKER) (test asdy=437) 111 mmHg 80-90 O2 SATURATION ARTERIAL (BEAKER) (test sdnk=390) 98.0 % 96.0-97.0 HCO3 ARTERIAL (BEAKER) (test cjfu=119) 28 mmol/L 21-29 BASE EXCESS ARTERIAL (BEAKER) (test qwvs=119) 2.1 mmol/L -2.0-3.0 PATIENT TEMPERATURE (BEAKER) (test lodt=4879) 36.8 C FIO2 (BEAKER) (test qheh=5334) 50.0 % CALCIUM, [id number] 21:44:00 Test Item Value Reference Range Comments CALCIUM IONIZED (BEAKER) (test jddu=613) 1.18 mmol/L 1.12-1.27 PH, BLOOD (BEAKER) (test iinx=6374) 7.39 PH, [id number] 21:43:00 Test Item Value Reference Range Comments PH ARTERIAL (BEAKER) (test uvqh=791) 7.39 7.35-7.45 THROMBOELASTOGRAPH (TEG)2018-01-01 20:10:00 Test Item Value Reference Range Comments TEG ACTIVATED CLOTTING TIME (BEAKER) (test 13.3 minutes 4.0-7.0 czuk=0631) TEG FIBRINOGEN ACTIVITY (BEAKER) (test 55.1 degrees 61.0-73.0 etfg=2355) TEG PLT. AGGREGATION (BEAKER) (test mdue=9635) 64.7 MM 55.0-65.0 TEG FIBRINOLYSIS (BEAKER) (test qeyo=0132) 0.0 % 0.0-5.0 TGH ACTIVATED CLOTTING TIME (BEAKER) (test 8.0 minutes 4.0-7.0 xjup=2203) TGH FIBRINOGEN ACTIVITY (BEAKER) (test 67.6 degrees 61.0-73.0 eydb=6217) TGH PLT. AGGREGATION (BEAKER) (test qlsl=5047) 57.1 MM 55.0-65.0 TGH FIBRINOLYSIS (BEAKER) (test fdwg=2515) 0.0 % 0.0-5.0 POCT-GLUCOSE [id number] 19:16:00 Test Item Value Reference Range Comments POC-GLUCOSE METER (BEAKER) 134 mg/dL 70-110 TESTED AT [facility] [address] [facility] (test ovnm=3067) [facility] [address] BLOOD GAS, [id number] 18:50:00 Test Item Value Reference Range Comments PH ARTERIAL (BEAKER) (test ooht=361) 7.45 7.35-7.45 PCO2 ARTERIAL (BEAKER) (test yzhc=371) 39 mmHg 35-45 PO2 ARTERIAL (BEAKER) (test igpy=891) 121 mmHg 80-90 O2 SATURATION ARTERIAL (BEAKER) (test tdwc=060) 98.6 % 96.0-97.0 HCO3 ARTERIAL (BEAKER) (test yjbu=814) 26 mmol/L 21-29 BASE EXCESS ARTERIAL (BEAKER) (test xvpb=158) 2.1 mmol/L -2.0-3.0 PATIENT TEMPERATURE (BEAKER) (test npwz=4842) 36.7 C FIO2 (BEAKER) (test cqgl=3331) 50.0 % [id number] 16:43:00 Test Item Value Reference Range Comments POTASSIUM (BEAKER) (test tcar=285) 5.1 meq/L 3.5-5.1 POCT-GLUCOSE [id number] 16:30:00 Test Item Value Reference Range Comments POC-GLUCOSE METER (BEAKER) 118 mg/dL 70-110 TESTED AT [address] (test ctxc=9151) [facility] [address] POCT-GLUCOSE [id number] 16:30:00 Test Item Value Reference Range Comments POC-GLUCOSE METER (BEAKER) 134 mg/dL 70-110 TESTED AT [address] (test aqep=6127) [facility] [address] POCT-GLUCOSE [id number] 16:30:00 Test Item Value Reference Range Comments POC-GLUCOSE METER (BEAKER) 124 mg/dL 70-110 TESTED AT [address] (test yjpy=8750) [facility] [address] POCT-GLUCOSE [id number] 16:30:00 Test Item Value Reference Range Comments POC-GLUCOSE METER (BEAKER) 96 mg/dL 70-110 TESTED AT [address] (test oviv=0698) [facility] [address] POCT-GLUCOSE [id number] 16:30:00 Test Item Value Reference Range Comments POC-GLUCOSE METER (BEAKER) 105 mg/dL 70-110 TESTED AT [address] (test rhcr=9779) [facility] [address] POCT-GLUCOSE [id number] 16:30:00 Test Item Value Reference Range Comments POC-GLUCOSE METER (BEAKER) 123 mg/dL 70-110 TESTED AT [facility] [address] (test ytuy=3601) [facility] [address] CALCIUM, [id number] 16:14:00 Test Item Value Reference Range Comments CALCIUM IONIZED (BEAKER) (test fyie=160) 1.17 mmol/L 1.12-1.27 PH, BLOOD (BEAKER) (test qvau=8530) 7.48 BLOOD GAS, [id number] 16:14:00 Test Item Value Reference Range Comments PH ARTERIAL (BEAKER) (test yzyr=154) 7.48 7.35-7.45 PCO2 ARTERIAL (BEAKER) (test sohq=444) 38 mmHg 35-45 PO2 ARTERIAL (BEAKER) (test mimc=640) 151 mmHg 80-90 O2 SATURATION ARTERIAL (BEAKER) (test tsug=413) 99.1 % 96.0-97.0 HCO3 ARTERIAL (BEAKER) (test oftd=926) 28 mmol/L 21-29 BASE EXCESS ARTERIAL (BEAKER) (test bfwr=321) 3.7 mmol/L -2.0-3.0 PATIENT TEMPERATURE (BEAKER) (test jkyv=4610) 36.7 C FIO2 (BEAKER) (test junh=7450) 50.0 % [id number] 13:03:00 Test Item Value Reference Range Comments POTASSIUM (BEAKER) (test olkn=943) 5.0 meq/L 3.5-5.1 CT BRAIN WITHOUT IV CONTRAST - [id number] 12:53:00Reason for exam:-> ECMO protocolFINAL REPORT CT head without contrast 2017 12:51 PM CLINICAL HISTORY: ECMO protocol TECHNIQUE: [...] disease with bilateral mastoid effusions. Signed: Saturnino Powersort Verified Date/Time: 2017 12:53:19 Reading Location: [facility] B1 C013V Neuro Reading Room BLOOD GAS, [id number] 12:25:00 Test Item Value Reference Range Comments PH ARTERIAL (BEAKER) (test axuf=933) 7.43 7.35-7.45 PCO2 ARTERIAL (BEAKER) (test cjxi=580) 40 mmHg 35-45 PO2 ARTERIAL (BEAKER) (test rcys=530) 128 mmHg 80-90 O2 SATURATION ARTERIAL (BEAKER) (test xvat=607) 98.7 % 96.0-97.0 HCO3 ARTERIAL (BEAKER) (test vzra=440) 26 mmol/L 21-29 BASE EXCESS ARTERIAL (BEAKER) (test mzoz=070) 1.5 mmol/L -2.0-3.0 PATIENT TEMPERATURE (BEAKER) (test ouav=5169) 36.6 C FIO2 (BEAKER) (test oufy=2579) 50.0 % THROMBOELASTOGRAPH (TEG)2018-01-01 12:25:00 Test Item Value Reference Range Comments TEG ACTIVATED CLOTTING TIME (BEAKER) (test 30.5 minutes 4.0-7.0 ewsp=3639) TEG FIBRINOGEN ACTIVITY (BEAKER) (test 12.0 degrees 61.0-73.0 aqjk=3507) TEG PLT. AGGREGATION (BEAKER) (test iopc=0911) 50.9 MM 55.0-65.0 TEG FIBRINOLYSIS (BEAKER) (test wwrg=1383) 0.0 % 0.0-5.0 TGH ACTIVATED CLOTTING TIME (BEAKER) (test 9.3 minutes 4.0-7.0 axgq=0100) TGH FIBRINOGEN ACTIVITY (BEAKER) (test 64.3 degrees 61.0-73.0 rlzn=5405) TGH PLT. AGGREGATION (BEAKER) (test cxpj=0295) 61.9 MM 55.0-65.0 TGH FIBRINOLYSIS (BEAKER) (test lqhv=9336) 0.0 % 0.0-5.0 BODY FLUID CULTURE + GRAM [id number] 10:35:00 Test Item Value Reference Range Comments CULTURE (BEAKER) (test No growth cipf=9356) GRAM STAIN RESULT (BEAKER) 3+ WBCs (test ihbu=2885) GRAM STAIN RESULT (BEAKER) <1+ gram positive cocci in (test aeso=486256) chains and pairs ANTITHROMBIN [id number] 09:51:00 Test Item Value Reference Range Comments ANTITHROMBIN III ACTIVITY (BEAKER) (test zezh=794) 50.0 % 80.0-120.0 RAD, CHEST, 1 VIEW, NON [id number] 09:28:00Reason for exam:->ETT/ ECMOShould this be performed at the bedside?->YesFINAL REPORT CHEST ONE VIEW HISTORY: ECMO, endotracheal tube COMPARISON: 12/31/2017 FINDINGS: Single portable AP examination of the chest was performed. The diffuse bilateral pulmonary opacities have increased since the prior study, which may reflect worsening edema. No definitepleural effusions. A left chest tube is present. No pneumothorax is identified. A left jugular catheter is present, extending cranially in the right hemithorax, presumably extending cranially in the superior vena cava. Endotracheal tube tip is 1.5 cm proximal to the wally. A large bore catheter is present on the right consistent with the history of ECMO. Feeding tube passes below the diaphragm, withthe tip not imaged. Cardiac shadow normal in size. Signed: Rhea Shahid MDReport Verified Date/Time: 01/01/2018 09:28:52 Reading Location: [facility] C013T Transitional Reading Room 09: 28 AMBLOOD GAS, [id number] 09:07:00 Test Item Value Reference Range Comments PH ARTERIAL (BEAKER) (test kjjz=306) 7.41 7.35-7.45 PCO2 ARTERIAL (BEAKER) (test xntl=781) 41 mmHg 35-45 PO2 ARTERIAL (BEAKER) (test mgif=270) 147 mmHg 80-90 O2 SATURATION ARTERIAL (BEAKER) (test nyua=580) 98.9 % 96.0-97.0 HCO3 ARTERIAL (BEAKER) (test yemp=604) 26 mmol/L 21-29 BASE EXCESS ARTERIAL (BEAKER) (test preo=129) 1.1 mmol/L -2.0-3.0 PATIENT TEMPERATURE (BEAKER) (test hmcf=2341) 37.0 C FIO2 (BEAKER) (test gvex=7910) 100.0 % [id number] 08:37:00 Test Item Value Reference Range Comments PARTIAL THROMBOPLASTIN TIME (BEAKER) (test 63.8 seconds 22.5-36.0 qqoa=530) [id number] 08:35:00 Test Item Value Reference Range Comments POTASSIUM (BEAKER) (test bnwq=040) 4.9 meq/L 3.5-5.1 [id number] 08:35:00 Test Item Value Reference Range Comments MAGNESIUM (BEAKER) (test phgj=459) 2.3 mg/dL 1.6-2.6 [id number] 08:35:00 Test Item Value Reference Range Comments PHOSPHORUS (BEAKER) (test amkr=343) 3.2 mg/dL 2.3-4.7 [id number] 08:35:00 Test Item Value Reference Range Comments SODIUM (BEAKER) (test uwhd=334) 138 meq/L 136-145 CALCIUM, [id number] 08:23:00 Test Item Value Reference Range Comments CALCIUM IONIZED (BEAKER) (test tdfs=730) 1.15 mmol/L 1.12-1.27 PH, BLOOD (BEAKER) (test catk=9684) 7.41 PH, [id number] 08:23:00 Test Item Value Reference Range Comments PH ARTERIAL (BEAKER) (test xadx=206) 7.41 7.35-7.45 HEPARIN ASSAY - [id number] 07:24:00 Test Item Value Reference Range Comments UNFRACTIONATED HEPARIN-ANTI 10A (BEAKER) (test 0.10 u/ml 0.30-0.70 pptw=5041) Recommendations for Monitoring Unfractionated Heparin Therapeutic Range: 0.3- 0.7 u/mL with continuous IV infusionCBC W/PLT COUNT & AUTO [id number] 06:50:00 Test Item Value Reference Range Comments WHITE BLOOD CELL COUNT (BEAKER) (test cncb=809) 30.2 K/ L 3.5-10.5 RED BLOOD CELL COUNT (BEAKER) (test dmnn=044) 2.56 M/ L 3.93-5.22 HEMOGLOBIN (BEAKER) (test tkty=317) 7.7 GM/DL 11.2-15.7 HEMATOCRIT (BEAKER) (test wxav=735) 23.1 % 34.1-44.9 MEAN CORPUSCULAR VOLUME (BEAKER) (test zsxl=060) 90.2 fL 79.4-94.8 MEAN CORPUSCULAR HEMOGLOBIN (BEAKER) (test 30.1 pg 25.6-32.2 wyoc=137) MEAN CORPUSCULAR HEMOGLOBIN CONC (BEAKER) (test 33.3 GM/DL 32.2-35.5 uzbq=976) RED CELL DISTRIBUTION WIDTH (BEAKER) (test 17.0 % 11.7-14.4 lzpq=533) PLATELET COUNT (BEAKER) (test wwba=573) 55 K/CU MM 150-450 MEAN PLATELET VOLUME (BEAKER) (test cftc=417) 11.8 fL 9.4-12.3 NUCLEATED RED BLOOD CELLS (BEAKER) (test 0 /100 WBC 0-0 dvri=056) (CELLAVISION MANUAL DIFF)2018-01-01 06:50:00 Test Item Value Reference Range Comments NEUTROPHILS - REL (CELLAVISION)(BEAKER) (test 44 % bsob=9530) LYMPHOCYTES - REL (CELLAVISION)(BEAKER) (test 8 % vita=9558) MONOCYTES - REL (CELLAVISION)(BEAKER) (test 3 % kmgy=7456) METAMYELOCYTES - REL (CELLAVISION)(BEAKER) (test 7 % 0-0 hjqw=4849) MYELOCYTES - REL (CELLAVISION)(BEAKER) (test 3 % 0-0 hito=5670) PROMYELOCYTES - REL (CELLAVSION)(BEAKER) (test 11 % 0-0 vqhy=3754) BANDS - REL (CELLAVISION)(BEAKER) (test 24 % 0-10 mjyz=5865) NEUTROPHILS - ABS (CELLAVISION)(BEAKER) (test 13.29 K/ul 1.56-6.13 ayiq=1604) LYMPHOCYTES - ABS (CELLAVISION)(BEAKER) (test 2.42 K/ul 1.18-3.74 qtpw=6001) MONOCYTES - ABS (CELLAVISION)(BEAKER) (test 0.91 K/uL 0.24-0.36 nhrd=2888) METAMYELOCYTES - ABS (CELLAVISION)(BEAKER) (test 2.11 K/uL 0.00-0.00 rrfy=8054) MYELOCYTES-ABS (CELLAVISION)(BEAKER) (test 0.91 K/uL 0.00-0.00 lrul=1439) PROMYELOCYTES - ABS (CELLAVISION)(BEAKER) (test 3.32 K/uL 0.00-0.00 itow=5817) BANDS - ABS (CELLAVISION)(BEAKER) (test 7.25 K/uL 0.00-0.80 meir=4537) TOTAL COUNTED (BEAKER) (test gxic=9067) 100 RBC MORPHOLOGY (BEAKER) (test oaxu=007) Normal WBC MORPHOLOGY (BEAKER) (test gvpb=724) Normal GIANT PLATELETS (BEAKER) (test qvwh=915) Present PLATELET CONCENTRATION (CELLAVISION)(BEAKER) Decreased (test yjpu=5617) Received comment: User comments: Slide comments:BLOOD GAS, [id number] 06 :11:00 Test Item Value Reference Range Comments PH ARTERIAL (BEAKER) (test wdnw=539) 7.47 7.35-7.45 PCO2 ARTERIAL (BEAKER) (test lqoj=925) 34 mmHg 35-45 PO2 ARTERIAL (BEAKER) (test utku=266) 470 mmHg 80-90 O2 SATURATION ARTERIAL (BEAKER) (test lgbt=538) 99.9 % 96.0-97.0 HCO3 ARTERIAL (BEAKER) (test qrht=936) 24 mmol/L 21-29 BASE EXCESS ARTERIAL (BEAKER) (test jrmz=821) 0.4 mmol/L -2.0-3.0 PATIENT TEMPERATURE (BEAKER) (test rkcz=9488) 36.1 C FIO2 (BEAKER) (test doft=7100) 100.0 % BASIC METABOLIC [id number] 03:13:00 Test Item Value Reference Range Comments SODIUM (BEAKER) (test 139 meq/L 136-145 fvec=128) POTASSIUM (BEAKER) (test 5.4 meq/L 3.5-5.1 tesw=588) CHLORIDE (BEAKER) (test 105 meq/L 98-107 eotw=251) CO2 (BEAKER) (test 23 meq/L 22-29 pwjt=993) BLOOD UREA NITROGEN 25 mg/dL 7-21 (BEAKER) (test pwgf=789) CREATININE (BEAKER) (test 1.47 mg/dL 0.57-1.25 ayki=496) GLUCOSE RANDOM (BEAKER) 137 mg/dL 70-105 (test bvrm=129) CALCIUM (BEAKER) (test 8.6 mg/dL 8.4-10.2 nyec=483) EGFR (BEAKER) (test mL/min/1.73 sq m INSUFFICIENT CLINICAL DATA nsht=4597) TO CALCULATE ESTIMATED GFR. [id number] 03:12:00 Test Item Value Reference Range Comments POTASSIUM (BEAKER) (test skfr=206) 5.4 meq/L 3.5-5.1 [id number] 03:12:00 Test Item Value Reference Range Comments MAGNESIUM (BEAKER) (test fmwj=916) 1.9 mg/dL 1.6-2.6 [id number] 03:12:00 Test Item Value Reference Range Comments PHOSPHORUS (BEAKER) (test iyiz=600) 3.7 mg/dL 2.3-4.7 HEPATIC FUNCTION [id number] 03:12:00 Test Item Value Reference Range Comments TOTAL PROTEIN (BEAKER) (test jwyo=119) 4.8 gm/dL 6.0-8.3 ALBUMIN (BEAKER) (test bjwj=2883) 2.3 g/dL 3.5-5.0 BILIRUBIN TOTAL (BEAKER) (test puqm=610) 0.6 mg/dL 0.2-1.2 BILIRUBIN DIRECT (BEAKER) (test forp=811) 0.5 mg/dL 0.1-0.5 ALKALINE PHOSPHATASE (BEAKER) (test oqsm=226) 64 U/L 40-150 AST (SGOT) (BEAKER) (test pomo=489) 38 U/L 5-34 ALT (SGPT) (BEAKER) (test hncp=997) 23 U/L 6-55 LACTATE DEHYDROGENASE (LDH)2018-01-01 03:12:00 Test Item Value Reference Range Comments LACTATE DEHYDROGENASE (BEAKER) (test vjwg=130) 520 U/L 125-220 LACTIC ACID, ARTERIAL, WHOLE [id number] 03:07:00 Test Item Value Reference Range Comments LACTATE BLOOD ARTERIAL (2) (BEAKER) (test 1.0 mmol/L 0.5-2.2 mbsv=8323) Effective 11/12/2015: Units/Reference Range ChangeNew: 0.5-2.2 mmol/L Previous: 5 -20 mg/[id number] 03:06:00 Test Item Value Reference Range Comments D-DIMER QUANTITATIVE (BEAKER) (test qlqd=057) 1.58 MG/L FEU <0.50 Intended Use: The D-Dimer Assay can be used to aid in the diagnosis of Deep Vein Thrombosis (DVT) and Pulmonary Embolism Disease (PED).In patients with low pre-test probability, various studies concerning STA Liatest D-dimer test have reported that with a cutoff value of 0.50 MG/L FEU, the Negative Predictive Value (NPV) regarding the exclusion of thrombosis is within 95-100% range.PROTHROMBIN TIME/[id number] 03:04:00 Test Item Value Reference Range Comments PROTIME (BEAKER) (test nqbu=052) 16.3 seconds 11.7-14.7 INR (BEAKER) (test pnyf=651) 1.3 <=5.9 RECOMMENDED COUMADIN/WARFARIN INR THERAPY RANGESSTANDARD DOSE: 2.0 - 3.0 Includes: PROPHYLAXIS forvenous thrombosis, systemic embolization; TREATMENT for venous thrombosis and/or pulmonary embolus.HIGH RISK: Target INR is 2.5-3.5 for patients with mechanical heart valves.[id number] 03:04:00 Test Item Value Reference Range Comments PARTIAL THROMBOPLASTIN TIME (BEAKER) (test 63.2 seconds 22.5-36.0 sjvv=033) BLOOD GAS, [id number] 02:59:00 Test Item Value Reference Range Comments PH ARTERIAL (BEAKER) (test rnxh=935) 7.43 7.35-7.45 PCO2 ARTERIAL (BEAKER) (test axdh=089) 39 mmHg 35-45 PO2 ARTERIAL (BEAKER) (test hudj=641) 143 mmHg 80-90 O2 SATURATION ARTERIAL (BEAKER) (test wylr=902) 98.9 % 96.0-97.0 HCO3 ARTERIAL (BEAKER) (test sshm=274) 26 mmol/L 21-29 BASE EXCESS ARTERIAL (BEAKER) (test kjdc=977) 1.1 mmol/L -2.0-3.0 PATIENT TEMPERATURE (BEAKER) (test btbo=4621) 36.3 C FIO2 (BEAKER) (test sxnc=7668) 50.0 % OXYGEN SATURATION, [id number] 02:59:00 Test Item Value Reference Range Comments O2 SATURATION (MEASURED) (BEAKER) (test fhwo=0520) 84.4 % CALCIUM, [id number] 02:59:00 Test Item Value Reference Range Comments CALCIUM IONIZED (BEAKER) (test rraa=718) 1.15 mmol/L 1.12-1.27 PH, BLOOD (BEAKER) (test lkll=8429) 7.42 [id number] 20:16:00 Test Item Value Reference Range Comments POTASSIUM (BEAKER) (test mrpu=003) 5.4 meq/L 3.5-5.1 [id number] 20:16:00 Test Item Value Reference Range Comments MAGNESIUM (BEAKER) (test abtp=798) 1.9 mg/dL 1.6-2.6 [id number] 20:16:00 Test Item Value Reference Range Comments PHOSPHORUS (BEAKER) (test gfyx=775) 3.6 mg/dL 2.3-4.7 [id number] 20:16:00 Test Item Value Reference Range Comments SODIUM (BEAKER) (test dxbk=029) 138 meq/L 136-145 BLOOD GAS, [id number] 19:52:00 Test Item Value Reference Range Comments PH ARTERIAL (BEAKER) (test rcmn=612) 7.41 7.35-7.45 PCO2 ARTERIAL (BEAKER) (test yjge=876) 39 mmHg 35-45 PO2 ARTERIAL (BEAKER) (test kxvz=487) 154 mmHg 80-90 O2 SATURATION ARTERIAL (BEAKER) (test jjui=620) 99.0 % 96.0-97.0 HCO3 ARTERIAL (BEAKER) (test zwtt=319) 25 mmol/L 21-29 BASE EXCESS ARTERIAL (BEAKER) (test bdcs=433) -0.2 mmol/L -2.0-3.0 PATIENT TEMPERATURE (BEAKER) (test xsxc=8040) 36.2 C FIO2 (BEAKER) (test agdu=7042) 100.0 % PH, [id number] 19:51:00 Test Item Value Reference Range Comments PH ARTERIAL (BEAKER) (test zyvz=727) 7.41 7.35-7.45 SODIUM NA-STAT [id number] 19:51:00 Test Item Value Reference Range Comments SODIUM (BEAKER) (test qkkg=786) 135 meq/L 135-148 THROMBOELASTOGRAPH (TEG)2017-12-31 18:32:00 Test Item Value Reference Range Comments TEG ACTIVATED CLOTTING TIME (BEAKER) (test 40.0 minutes 4.0-7.0 yylr=4014) TEG FIBRINOGEN ACTIVITY (BEAKER) (test 7.8 degrees 61.0-73.0 qdvh=1216) TEG PLT. AGGREGATION (BEAKER) (test vvbd=1690) 21.6 MM 55.0-65.0 TEG FIBRINOLYSIS (BEAKER) (test rqdf=0030) 0.0 % 0.0-5.0 TGH ACTIVATED CLOTTING TIME (BEAKER) (test 9.8 minutes 4.0-7.0 ltsn=7753) TGH FIBRINOGEN ACTIVITY (BEAKER) (test 62.5 degrees 61.0-73.0 xbsm=0441) TGH PLT. AGGREGATION (BEAKER) (test xevn=1686) 65.1 MM 55.0-65.0 TGH FIBRINOLYSIS (BEAKER) (test unnj=1119) 0.0 % 0.0-5.0 [id number] 17:02:00 Test Item Value Reference Range Comments PARTIAL THROMBOPLASTIN TIME (BEAKER) (test 66.8 seconds 22.5-36.0 sxqt=987) [id number] 16:50:00 Test Item Value Reference Range Comments POTASSIUM (BEAKER) (test uhuo=290) 5.4 meq/L 3.5-5.1 CALCIUM, [id number] 16:39:00 Test Item Value Reference Range Comments CALCIUM IONIZED (BEAKER) (test qpkc=799) 1.16 mmol/L 1.12-1.27 PH, BLOOD (BEAKER) (test dqfk=8271) 7.44 BLOOD GAS, [id number] 16:38:00 Test Item Value Reference Range Comments PH ARTERIAL (BEAKER) (test zuyr=168) 7.44 7.35-7.45 PCO2 ARTERIAL (BEAKER) (test aexl=380) 37 mmHg 35-45 PO2 ARTERIAL (BEAKER) (test ufok=917) 179 mmHg 80-90 O2 SATURATION ARTERIAL (BEAKER) (test ftlf=712) 99.3 % 96.0-97.0 HCO3 ARTERIAL (BEAKER) (test hucu=096) 24 mmol/L 21-29 BASE EXCESS ARTERIAL (BEAKER) (test taor=333) 0.0 mmol/L -2.0-3.0 PATIENT TEMPERATURE (BEAKER) (test okmj=6859) 36.7 C FIO2 (BEAKER) (test mqxa=6690) 50.0 % [id number] 13:22:00 Test Item Value Reference Range Comments POTASSIUM (BEAKER) (test rxjr=366) 5.5 meq/L 3.5-5.1 BLOOD GAS, [id number] 12:57:00 Test Item Value Reference Range Comments PH ARTERIAL (BEAKER) (test agws=306) 7.47 7.35-7.45 PCO2 ARTERIAL (BEAKER) (test mris=266) 37 mmHg 35-45 PO2 ARTERIAL (BEAKER) (test iuth=885) 116 mmHg 80-90 O2 SATURATION ARTERIAL (BEAKER) (test zjuw=114) 98.5 % 96.0-97.0 HCO3 ARTERIAL (BEAKER) (test rgha=671) 26 mmol/L 21-29 BASE EXCESS ARTERIAL (BEAKER) (test fdka=096) 2.4 mmol/L -2.0-3.0 PATIENT TEMPERATURE (BEAKER) (test tkyk=1678) 36.7 C FIO2 (BEAKER) (test wymy=3389) 50.0 % RAD, ABDOMEN/KUB, 1 VIEW [id number] 11:28:00Reason for exam:->Corpak placementFINAL REPORT ONE VIEW ABDOMEN HISTORY: Corpak feeding tube placement COMPARISON: 12/28/2017 FINDINGS: Single supine AP image of the abdomen was obtained. A feeding tube is present, with its tip in the region of the midportion of the gastric body. No dilated bowel loops are identified. Atelectatic changes are noted at the lung bases. Signed: Rhea [place] Verified Date/Time: 12/31/2017 11:28:03 Reading Location: [facility] C013T Transitional Reading Room BLOOD GAS, [id number] 11:02:00 Test Item Value Reference Range Comments PH ARTERIAL (BEAKER) (test qqiy=145) 7.48 7.35-7.45 PCO2 ARTERIAL (BEAKER) (test wguv=014) 37 mmHg 35-45 PO2 ARTERIAL (BEAKER) (test tpnj=155) 165 mmHg 80-90 O2 SATURATION ARTERIAL (BEAKER) (test rsni=025) 99.2 % 96.0-97.0 HCO3 ARTERIAL (BEAKER) (test jtkb=561) 27 mmol/L 21-29 BASE EXCESS ARTERIAL (BEAKER) (test xmft=527) 2.9 mmol/L -2.0-3.0 PATIENT TEMPERATURE (BEAKER) (test mant=1893) 36.2 C FIO2 (BEAKER) (test wwrv=9965) 50.0 % THROMBOELASTOGRAPH (TEG)2017-12-31 10:34:00 Test Item Value Reference Range Comments TEG ACTIVATED CLOTTING TIME (BEAKER) (test 37.1 minutes 4.0-7.0 obpb=3344) TEG FIBRINOGEN ACTIVITY (BEAKER) (test 8.8 degrees 61.0-73.0 pyew=1102) TEG PLT. AGGREGATION (BEAKER) (test zbij=9364) 24.0 MM 55.0-65.0 TEG FIBRINOLYSIS (BEAKER) (test ospt=1970) 0.0 % 0.0-5.0 TGH ACTIVATED CLOTTING TIME (BEAKER) (test 9.1 minutes 4.0-7.0 eyid=2591) TGH FIBRINOGEN ACTIVITY (BEAKER) (test 60.8 degrees 61.0-73.0 sfjk=6966) TGH PLT. AGGREGATION (BEAKER) (test eulz=7693) 55.0 MM 55.0-65.0 TGH FIBRINOLYSIS (BEAKER) (test vaig=3023) 0.0 % 0.0-5.0 ANTITHROMBIN [id number] 09:49:00 Test Item Value Reference Range Comments ANTITHROMBIN III ACTIVITY (BEAKER) (test zynf=260) 65.0 % 80.0-120.0 BLOOD [id number] 09:16:00 Test Item Value Reference Range Comments CULTURE (BEAKER) From Aerobic And Anaerobic (test fgti=1697) Bottles Coagulase negative Staphylococcus GRAM STAIN RESULT From aerobic and (BEAKER) (test anaerobic bottles: rkty=2888) gram positive cocci in clusters Coagulase Negative Staphylococcus Species (CoNS) DETECTED, Methicillin Susceptible First line therapy: cefazolin, nafcillin (nafcillin preferred for Central Nervous System infection) Coagulase Negative Staphylococcus (CoNS) DETECTEDmecA NOT DETECTEDOther organisms and resistance markers not containedin this PCR panel cannot be excluded and follow-up of traditional culture results is required. This sample was tested at the [facility] Clinical Microbiology Laboratory using the [employer] Blood Culture ID Panel. This test is FDA cleared for in vitro diagnostic use and has been verified and approved by the [facility] Clinical Microbiology laboratory for clinical use. Reference Range: Not DetectedCBC W/PLT COUNT & AUTO [id number] 09:06:00 Test Item Value Reference Range Comments WHITE BLOOD CELL COUNT (BEAKER) (test zzqy=620) 34.3 K/ L 3.5-10.5 RED BLOOD CELL COUNT (BEAKER) (test atpp=134) 2.73 M/ L 3.93-5.22 HEMOGLOBIN (BEAKER) (test atgi=650) 8.3 GM/DL 11.2-15.7 HEMATOCRIT (BEAKER) (test tcvu=580) 24.5 % 34.1-44.9 MEAN CORPUSCULAR VOLUME (BEAKER) (test mmif=407) 89.7 fL 79.4-94.8 MEAN CORPUSCULAR HEMOGLOBIN (BEAKER) (test 30.4 pg 25.6-32.2 qrlv=506) MEAN CORPUSCULAR HEMOGLOBIN CONC (BEAKER) (test 33.9 GM/DL 32.2-35.5 ovqg=230) RED CELL DISTRIBUTION WIDTH (BEAKER) (test 16.4 % 11.7-14.4 bfrs=241) PLATELET COUNT (BEAKER) (test nvot=576) 46 K/CU MM 150-450 MEAN PLATELET VOLUME (BEAKER) (test amqs=411) 11.4 fL 9.4-12.3 NUCLEATED RED BLOOD CELLS (BEAKER) (test 0 /100 WBC 0-0 wyvq=870) [id number] 09:02:00 Test Item Value Reference Range Comments POTASSIUM (BEAKER) (test ndbx=405) 5.5 meq/L 3.5-5.1 [id number] 09:02:00 Test Item Value Reference Range Comments MAGNESIUM (BEAKER) (test nman=162) 2.3 mg/dL 1.6-2.6 [id number] 09:02:00 Test Item Value Reference Range Comments PHOSPHORUS (BEAKER) (test tjpa=008) 3.7 mg/dL 2.3-4.7 [id number] 09:02:00 Test Item Value Reference Range Comments SODIUM (BEAKER) (test xcuv=394) 139 meq/L 136-145 [id number] 09:00:00 Test Item Value Reference Range Comments PARTIAL THROMBOPLASTIN TIME (BEAKER) (test 66.9 seconds 22.5-36.0 ymre=360) CBC W/PLT COUNT & AUTO [id number] 08:54:00 Test Item Value Reference Range Comments WHITE BLOOD CELL COUNT (BEAKER) (test orct=402) 29.7 K/ L 3.5-10.5 RED BLOOD CELL COUNT (BEAKER) (test lohk=179) 2.44 M/ L 3.93-5.22 HEMOGLOBIN (BEAKER) (test cafk=490) 7.3 GM/DL 11.2-15.7 HEMATOCRIT (BEAKER) (test ysvc=901) 22.0 % 34.1-44.9 MEAN CORPUSCULAR VOLUME (BEAKER) (test bvfr=951) 90.2 fL 79.4-94.8 MEAN CORPUSCULAR HEMOGLOBIN (BEAKER) (test 29.9 pg 25.6-32.2 limf=558) MEAN CORPUSCULAR HEMOGLOBIN CONC (BEAKER) (test 33.2 GM/DL 32.2-35.5 bryn=235) RED CELL DISTRIBUTION WIDTH (BEAKER) (test 16.8 % 11.7-14.4 fxib=759) PLATELET COUNT (BEAKER) (test vmbq=544) 43 K/CU MM 150-450 MEAN PLATELET VOLUME (BEAKER) (test rmsm=630) 11.4 fL 9.4-12.3 NUCLEATED RED BLOOD CELLS (BEAKER) (test 0 /100 WBC 0-0 kgwy=128) (CELLAVISION MANUAL DIFF)2017-12-31 08:54:00 Test Item Value Reference Range Comments NEUTROPHILS - REL (CELLAVISION)(BEAKER) (test 69 % qunq=9272) LYMPHOCYTES - REL (CELLAVISION)(BEAKER) (test 5 % xvhv=5219) MONOCYTES - REL (CELLAVISION)(BEAKER) (test 5 % qduj=7098) MYELOCYTES - REL (CELLAVISION)(BEAKER) (test 2 % 0-0 lsxq=0144) PROMYELOCYTES - REL (CELLAVSION)(BEAKER) (test 12 % 0-0 pqqj=4508) BANDS - REL (CELLAVISION)(BEAKER) (test 7 % 0-10 uwbo=9862) NEUTROPHILS - ABS (CELLAVISION)(BEAKER) (test 20.49 K/ul 1.56-6.13 mult=8995) LYMPHOCYTES - ABS (CELLAVISION)(BEAKER) (test 1.49 K/ul 1.18-3.74 hckk=6371) MONOCYTES - ABS (CELLAVISION)(BEAKER) (test 1.49 K/uL 0.24-0.36 uvjd=5409) MYELOCYTES-ABS (CELLAVISION)(BEAKER) (test 0.59 K/uL 0.00-0.00 hheq=9021) PROMYELOCYTES - ABS (CELLAVISION)(BEAKER) (test 3.56 K/uL 0.00-0.00 uubb=5241) BANDS - ABS (CELLAVISION)(BEAKER) (test 2.08 K/uL 0.00-0.80 zjda=0515) TOTAL COUNTED (BEAKER) (test pzjo=9497) 100 WBC MORPHOLOGY (BEAKER) (test nrnt=444) Normal PLT MORPHOLOGY (BEAKER) (test zxdt=090) Normal ANISOCYTOSIS (BEAKER) (test mgev=400) 1+ few MICROCYTES (BEAKER) (test alcq=745) 1+ few ARTIFACT (CELLAVISION)(BEAKER) (test fyip=0301) Present PLATELET CONCENTRATION (CELLAVISION)(BEAKER) Decreased (test pmuq=5209) Received comment: User comments: Slide comments:BLOOD GAS, [id number] 08 :36:00 Test Item Value Reference Range Comments PH ARTERIAL (BEAKER) (test wluy=567) 7.48 7.35-7.45 PCO2 ARTERIAL (BEAKER) (test notl=572) 35 mmHg 35-45 PO2 ARTERIAL (BEAKER) (test tmxw=967) 149 mmHg 80-90 O2 SATURATION ARTERIAL (BEAKER) (test sehx=660) 99.1 % 96.0-97.0 HCO3 ARTERIAL (BEAKER) (test avsd=703) 25 mmol/L 21-29 BASE EXCESS ARTERIAL (BEAKER) (test pltc=477) 1.4 mmol/L -2.0-3.0 PATIENT TEMPERATURE (BEAKER) (test louz=3342) 36.6 C FIO2 (BEAKER) (test vxab=1362) 50.0 % CALCIUM, [id number] 08:32:00 Test Item Value Reference Range Comments CALCIUM IONIZED (BEAKER) (test occf=601) 1.16 mmol/L 1.12-1.27 PH, BLOOD (BEAKER) (test jbgr=9410) 7.45 HEPARIN ASSAY - [id number] 08:10:00 Test Item Value Reference Range Comments UNFRACTIONATED HEPARIN-ANTI 10A (BEAKER) (test 0.16 u/ml 0.30-0.70 faxy=1930) Recommendations for Monitoring Unfractionated Heparin Therapeutic Range: 0.3- 0.7 u/mL with continuous IV infusionRAD, CHEST, 1 VIEW, NON [id number] 07:20 :00Reason for exam:->pneumonia ecmoShould this be performed at the bedside?-& gt;YesFINAL REPORT INDICATION: pneumonia ecmo COMPARISON : December 30, 2017 TECHNIQUE: Chest radiograph, single view, portable technique. FINDINGS / IMPRESSION: Support lines and tubes, including caval cannula, unchanged and appear in satisfactory position. Left midlung patchy opacity andfaint diffuse right airspace opacity are unchanged, edema and pneumonia are considered. Cardiac and mediastinal contours are unremarkable. No pneumothorax or large pleural effusion. Signed: Shashank Foster MDReport Verified Date/Time : 12/31/2017 07:20:57 Reading Location: [facility] C013X Ortho Consult Reading Room 07: 20 AMTHROMBOELASTOGRAPH (TEG)2017-12-31 06:37:00 Test Item Value Reference Range Comments TEG ACTIVATED CLOTTING TIME (BEAKER) (test 44.0 minutes 4.0-7.0 swjo=1574) TEG FIBRINOGEN ACTIVITY (BEAKER) (test 6.2 degrees 61.0-73.0 xdgy=9341) TEG PLT. AGGREGATION (BEAKER) (test dxbt=5182) 10.4 MM 55.0-65.0 TEG FIBRINOLYSIS (BEAKER) (test eucm=5648) 0.0 % 0.0-5.0 TGH ACTIVATED CLOTTING TIME (BEAKER) (test 10.8 minutes 4.0-7.0 zjsz=8102) TGH FIBRINOGEN ACTIVITY (BEAKER) (test 54.9 degrees 61.0-73.0 fkxp=2095) TGH PLT. AGGREGATION (BEAKER) (test xjqs=2349) 61.4 MM 55.0-65.0 TGH FIBRINOLYSIS (BEAKER) (test zgja=6667) 0.0 % 0.0-5.0 BLOOD GAS, [id number] 06:23:00 Test Item Value Reference Range Comments PH ARTERIAL (BEAKER) (test tvxt=059) 7.39 7.35-7.45 PCO2 ARTERIAL (BEAKER) (test jbgs=524) 43 mmHg 35-45 PO2 ARTERIAL (BEAKER) (test yoeb=225) 334 mmHg 80-90 O2 SATURATION ARTERIAL (BEAKER) (test wkjf=605) 99.7 % 96.0-97.0 HCO3 ARTERIAL (BEAKER) (test vjia=623) 26 mmol/L 21-29 BASE EXCESS ARTERIAL (BEAKER) (test ezsl=034) 0.4 mmol/L -2.0-3.0 PATIENT TEMPERATURE (BEAKER) (test sltj=3569) 36.2 C FIO2 (BEAKER) (test qsmj=6698) 100.0 % POCT-GLUCOSE [id number] 06:15:00 Test Item Value Reference Range Comments POC-GLUCOSE METER (BEAKER) 116 mg/dL 70-110 TESTED AT [address] (test yseu=0152) [facility] [address] POCT-GLUCOSE [id number] 06:15:00 Test Item Value Reference Range Comments POC-GLUCOSE METER (BEAKER) 127 mg/dL 70-110 TESTED AT [address] (test pqdo=9305) [facility] [address] POCT-GLUCOSE [id number] 06:15:00 Test Item Value Reference Range Comments POC-GLUCOSE METER (BEAKER) 130 mg/dL 70-110 TESTED AT [address] (test zbhy=6008) [facility] [address] POCT-GLUCOSE [id number] 06:15:00 Test Item Value Reference Range Comments POC-GLUCOSE METER (BEAKER) 141 mg/dL 70-110 TESTED AT [address] (test rxgx=2257) [facility] [address] BASIC METABOLIC [id number] 05:36:00 Test Item Value Reference Range Comments SODIUM (BEAKER) (test 138 meq/L 136-145 misa=687) POTASSIUM (BEAKER) (test 5.1 meq/L 3.5-5.1 qnqa=020) CHLORIDE (BEAKER) (test 105 meq/L 98-107 jkdh=670) CO2 (BEAKER) (test 23 meq/L 22-29 lxgy=244) BLOOD UREA NITROGEN 26 mg/dL 7-21 (BEAKER) (test qeda=344) CREATININE (BEAKER) (test 1.65 mg/dL 0.57-1.25 dyoe=435) GLUCOSE RANDOM (BEAKER) 132 mg/dL 70-105 (test jpgc=966) CALCIUM (BEAKER) (test 8.7 mg/dL 8.4-10.2 nplf=402) EGFR (BEAKER) (test mL/min/1.73 sq m INSUFFICIENT CLINICAL DATA tvpi=2345) TO CALCULATE ESTIMATED GFR. [id number] 05:36:00 Test Item Value Reference Range Comments CREATININE (BEAKER) (test 1.65 mg/dL 0.57-1.25 dmnv=019) EGFR (BEAKER) (test mL/min/1.73 sq m INSUFFICIENT CLINICAL DATA wkxs=5178) TO CALCULATE ESTIMATED GFR. VANCOMYCIN LEVEL, [id number] 05:27:00 Test Item Value Reference Range Comments VANCOMYCIN TROUGH (BEAKER) (test cdlx=577) 24.3 ug/mL 10.0-20.0 [id number] 05:27:00 Test Item Value Reference Range Comments PHOSPHORUS (BEAKER) (test qdro=181) 4.4 mg/dL 2.3-4.7 [id number] 05:27:00 Test Item Value Reference Range Comments MAGNESIUM (BEAKER) (test gfgs=232) 2.1 mg/dL 1.6-2.6 [id number] 05:27:00 Test Item Value Reference Range Comments BLOOD UREA NITROGEN (BEAKER) (test aayb=177) 26 mg/dL 7-21 [id number] 05:27:00 Test Item Value Reference Range Comments SODIUM (BEAKER) (test yofk=003) 138 meq/L 136-145 POTASSIUM (BEAKER) (test jvfi=091) 5.1 meq/L 3.5-5.1 CHLORIDE (BEAKER) (test qvwi=204) 105 meq/L 98-107 CO2 (BEAKER) (test thas=627) 23 meq/L 22-29 HEPATIC FUNCTION [id number] 05:27:00 Test Item Value Reference Range Comments TOTAL PROTEIN (BEAKER) (test zvce=115) 4.5 gm/dL 6.0-8.3 ALBUMIN (BEAKER) (test esjx=7401) 2.2 g/dL 3.5-5.0 BILIRUBIN TOTAL (BEAKER) (test tujl=849) 0.5 mg/dL 0.2-1.2 BILIRUBIN DIRECT (BEAKER) (test hlrg=223) 0.4 mg/dL 0.1-0.5 ALKALINE PHOSPHATASE (BEAKER) (test ipbr=909) 70 U/L 40-150 AST (SGOT) (BEAKER) (test nqga=553) 45 U/L 5-34 ALT (SGPT) (BEAKER) (test jftv=644) 24 U/L 6-55 [id number] 05:27:00 Test Item Value Reference Range Comments GLUCOSE RANDOM (BEAKER) (test rfed=122) 132 mg/dL 70-105 LACTATE DEHYDROGENASE (LDH)2017-12-31 05:27:00 Test Item Value Reference Range Comments LACTATE DEHYDROGENASE (BEAKER) (test cmji=629) 540 U/L 125-220 [id number] 05:23:00 Test Item Value Reference Range Comments D-DIMER QUANTITATIVE (BEAKER) (test kkbz=400) 1.75 MG/L FEU <0.50 Intended Use: The D-Dimer Assay can be used to aid in the diagnosis of Deep Vein Thrombosis (DVT) and Pulmonary Embolism Disease (PED).In patients with low pre-test probability, various studies concerning STA Liatest D-dimer test have reported that with a cutoff value of 0.50 MG/L FEU, the Negative Predictive Value (NPV) regarding the exclusion of thrombosis is within 95-100% range.[id number] 05:21:00 Test Item Value Reference Range Comments FIBRINOGEN LEVEL (BEAKER) (test vrzk=312) 560 mg/dl 225-434 PROTHROMBIN [id number] 05:20:00 Test Item Value Reference Range Comments PROTIME (BEAKER) (test jhkk=779) 17.0 seconds 11.7-14.7 INR (BEAKER) (test zwki=723) 1.4 <=5.9 RECOMMENDED COUMADIN/WARFARIN INR THERAPY RANGESSTANDARD DOSE: 2.0 - 3.0 Includes: PROPHYLAXIS forvenous thrombosis, systemic embolization; TREATMENT for venous thrombosis and/or pulmonary embolus.HIGH RISK: Target INR is 2.5-3.5 for patients with mechanical heart valves.LACTIC ACID, ARTERIAL, WHOLE [id number] 05:05:00 Test Item Value Reference Range Comments LACTATE BLOOD ARTERIAL (2) (BEAKER) (test 1.0 mmol/L 0.5-2.2 mobn=5280) Effective 11/12/2015: Units/Reference Range ChangeNew: 0.5-2.2 mmol/L Previous: 5 -20 mg/dLCALCIUM, [id number] 04:53:00 Test Item Value Reference Range Comments CALCIUM IONIZED (BEAKER) (test doly=437) 1.23 mmol/L 1.12-1.27 PH, BLOOD (BEAKER) (test fbqk=5626) 7.36 BLOOD GAS, [id number] 04:53:00 Test Item Value Reference Range Comments PH ARTERIAL (BEAKER) (test snrd=097) 7.37 7.35-7.45 PCO2 ARTERIAL (BEAKER) (test oljn=496) 47 mmHg 35-45 PO2 ARTERIAL (BEAKER) (test hmlt=314) 236 mmHg 80-90 O2 SATURATION ARTERIAL (BEAKER) (test aqbr=744) 99.5 % 96.0-97.0 HCO3 ARTERIAL (BEAKER) (test cqui=283) 27 mmol/L 21-29 BASE EXCESS ARTERIAL (BEAKER) (test kmga=235) 1.0 mmol/L -2.0-3.0 PATIENT TEMPERATURE (BEAKER) (test cqoa=6026) 36.5 C FIO2 (BEAKER) (test kuwp=0294) 60.0 % THROMBOELASTOGRAPH (TEG)2017-12-31 04:13:00 Test Item Value Reference Range Comments TEG ACTIVATED CLOTTING TIME (BEAKER) (test 31.3 minutes 4.0-7.0 ezsu=9795) TEG FIBRINOGEN ACTIVITY (BEAKER) (test 11.3 degrees 61.0-73.0 smhw=1313) TEG PLT. AGGREGATION (BEAKER) (test yebz=4199) 47.6 MM 55.0-65.0 TEG FIBRINOLYSIS (BEAKER) (test rpgp=4760) 0.0 % 0.0-5.0 TGH ACTIVATED CLOTTING TIME (BEAKER) (test 10.9 minutes 4.0-7.0 xfiu=0121) TGH FIBRINOGEN ACTIVITY (BEAKER) (test 55.0 degrees 61.0-73.0 ysgt=2401) TGH PLT. AGGREGATION (BEAKER) (test kaix=3749) 52.8 MM 55.0-65.0 TGH FIBRINOLYSIS (BEAKER) (test hjue=8421) 0.0 % 0.0-5.0 [id number] 01:38:00 Test Item Value Reference Range Comments POTASSIUM (BEAKER) (test qxuk=118) 5.0 meq/L 3.5-5.1 [id number] 01:37:00 Test Item Value Reference Range Comments PROTIME (BEAKER) (test jmvs=801) 16.2 seconds 11.7-14.7 INR (BEAKER) (test qwxm=885) 1.3 <=5.9 PARTIAL THROMBOPLASTIN TIME (BEAKER) (test 48.3 seconds 22.5-36.0 fxul=985) RECOMMENDED COUMADIN/WARFARIN INR THERAPY RANGESSTANDARD DOSE: 2.0 - 3.0 Includes: PROPHYLAXIS forvenous thrombosis, systemic embolization; TREATMENT for venous thrombosis and/or pulmonary embolus.HIGH RISK: Target INR is 2.5-3.5 for patients with mechanical heart valves.BLOOD GAS, [id number] 01:25:00 Test Item Value Reference Range Comments PH ARTERIAL (BEAKER) (test rvpa=608) 7.43 7.35-7.45 PCO2 ARTERIAL (BEAKER) (test frfi=657) 38 mmHg 35-45 PO2 ARTERIAL (BEAKER) (test ifqb=448) 225 mmHg 80-90 O2 SATURATION ARTERIAL (BEAKER) (test ewms=553) 99.5 % 96.0-97.0 HCO3 ARTERIAL (BEAKER) (test sbig=023) 24 mmol/L 21-29 BASE EXCESS ARTERIAL (BEAKER) (test ppgi=638) -0.2 mmol/L -2.0-3.0 PATIENT TEMPERATURE (BEAKER) (test etot=4527) 37.0 C FIO2 (BEAKER) (test jbcy=3031) 60.0 % CALCIUM, [id number] 01:25:00 Test Item Value Reference Range Comments CALCIUM IONIZED (BEAKER) (test gosm=124) 1.09 mmol/L 1.12-1.27 PH, BLOOD (BEAKER) (test zefm=7613) 7.43 POCT-GLUCOSE [id number] 22:39:00 Test Item Value Reference Range Comments POC-GLUCOSE METER (BEAKER) 119 mg/dL 70-110 TESTED AT [address] (test hlje=8073) [facility] [id number] POCT-GLUCOSE [id number] 22:39:00 Test Item Value Reference Range Comments POC-GLUCOSE METER (BEAKER) 121 mg/dL 70-110 TESTED AT [address] (test mewl=0024) [facility] [address] POCT-GLUCOSE [id number] 22:39:00 Test Item Value Reference Range Comments POC-GLUCOSE METER (BEAKER) 139 mg/dL 70-110 TESTED AT [address] (test kham=0600) [facility] [address] POCT-GLUCOSE [id number] 22:39:00 Test Item Value Reference Range Comments POC-GLUCOSE METER (BEAKER) 104 mg/dL 70-110 TESTED AT [address] (test spyh=5291) [facility] [address] POCT-GLUCOSE [id number] 22:39:00 Test Item Value Reference Range Comments POC-GLUCOSE METER (BEAKER) 87 mg/dL 70-110 TESTED AT [address] (test fvlh=9461) [facility] [address] POCT-GLUCOSE [id number] 22:39:00 Test Item Value Reference Range Comments POC-GLUCOSE METER (BEAKER) 107 mg/dL 70-110 TESTED AT [address] (test ukhg=3359) [facility] [address] POCT-GLUCOSE [id number] 22:39:00 Test Item Value Reference Range Comments POC-GLUCOSE METER (BEAKER) 118 mg/dL 70-110 TESTED AT [address] (test rxoy=2588) [facility] [address] POCT-GLUCOSE [id number] 22:39:00 Test Item Value Reference Range Comments POC-GLUCOSE METER (BEAKER) 135 mg/dL 70-110 TESTED AT [address] (test vdog=2437) [facility] [address] POCT-GLUCOSE [id number] 22:39:00 Test Item Value Reference Range Comments POC-GLUCOSE METER (BEAKER) 137 mg/dL 70-110 TESTED AT [address] (test vjor=0910) [facility] [address] POCT-GLUCOSE [id number] 22:39:00 Test Item Value Reference Range Comments POC-GLUCOSE METER (BEAKER) 132 mg/dL 70-110 TESTED AT [address] (test fabc=2351) [facility] [address] POCT-GLUCOSE [id number] 22:39:00 Test Item Value Reference Range Comments POC-GLUCOSE METER (BEAKER) 154 mg/dL 70-110 TESTED AT [address] (test ivuc=1109) [facility] [address] POCT-GLUCOSE [id number] 22:39:00 Test Item Value Reference Range Comments POC-GLUCOSE METER (BEAKER) 153 mg/dL 70-110 TESTED AT [address] (test pdnv=9904) [facility] [address] POCT-GLUCOSE [id number] 22:39:00 Test Item Value Reference Range Comments POC-GLUCOSE METER (BEAKER) 135 mg/dL 70-110 TESTED AT [address] (test fxgq=1444) [facility] [address] POCT-GLUCOSE [id number] 22:39:00 Test Item Value Reference Range Comments POC-GLUCOSE METER (BEAKER) 142 mg/dL 70-110 TESTED AT [address] (test asta=9306) [facility] [address] POCT-GLUCOSE [id number] 22:39:00 Test Item Value Reference Range Comments POC-GLUCOSE METER (BEAKER) 138 mg/dL 70-110 TESTED AT [address] (test sexw=8664) [facility] [address] [id number] 20:50:00 Test Item Value Reference Range Comments POTASSIUM (BEAKER) (test nrae=492) 4.8 meq/L 3.5-5.1 [id number] 20:50:00 Test Item Value Reference Range Comments MAGNESIUM (BEAKER) (test xrkq=995) 2.3 mg/dL 1.6-2.6 [id number] 20:50:00 Test Item Value Reference Range Comments PHOSPHORUS (BEAKER) (test fbcy=660) 3.1 mg/dL 2.3-4.7 [id number] 20:50:00 Test Item Value Reference Range Comments SODIUM (BEAKER) (test exgm=315) 139 meq/L 136-145 BLOOD GAS, [id number] 20:31:00 Test Item Value Reference Range Comments PH ARTERIAL (BEAKER) (test ubdb=009) 7.43 7.35-7.45 PCO2 ARTERIAL (BEAKER) (test uocv=172) 38 mmHg 35-45 PO2 ARTERIAL (BEAKER) (test qruh=019) 137 mmHg 80-90 O2 SATURATION ARTERIAL (BEAKER) (test dkkj=977) 98.8 % 96.0-97.0 HCO3 ARTERIAL (BEAKER) (test tmxa=006) 25 mmol/L 21-29 BASE EXCESS ARTERIAL (BEAKER) (test wfol=911) 0.7 mmol/L -2.0-3.0 PATIENT TEMPERATURE (BEAKER) (test owzo=3428) 36.7 C FIO2 (BEAKER) (test tgmi=0997) 60.0 % CBC W/PLT COUNT & AUTO [id number] 18:54:00 Test Item Value Reference Range Comments WHITE BLOOD CELL COUNT (BEAKER) (test idxy=794) 43.8 K/ L 3.5-10.5 RED BLOOD CELL COUNT (BEAKER) (test oets=620) 2.47 M/ L 3.93-5.22 HEMOGLOBIN (BEAKER) (test rfyl=677) 7.5 GM/DL 11.2-15.7 HEMATOCRIT (BEAKER) (test yzyv=475) 22.1 % 34.1-44.9 MEAN CORPUSCULAR VOLUME (BEAKER) (test cwwm=900) 89.5 fL 79.4-94.8 MEAN CORPUSCULAR HEMOGLOBIN (BEAKER) (test 30.4 pg 25.6-32.2 jgpa=330) MEAN CORPUSCULAR HEMOGLOBIN CONC (BEAKER) (test 33.9 GM/DL 32.2-35.5 pxcs=389) RED CELL DISTRIBUTION WIDTH (BEAKER) (test 16.8 % 11.7-14.4 laoy=648) PLATELET COUNT (BEAKER) (test einl=274) 73 K/CU MM 150-450 MEAN PLATELET VOLUME (BEAKER) (test arfy=148) 11.3 fL 9.4-12.3 NUCLEATED RED BLOOD CELLS (BEAKER) (test 0 /100 WBC 0-0 jjii=970) NEUTROPHILS RELATIVE PERCENT (BEAKER) (test 57 % msqx=181) LYMPHOCYTES RELATIVE PERCENT (BEAKER) (test 7 % vqxw=547) MONOCYTES RELATIVE PERCENT (BEAKER) (test 5 % dchz=739) EOSINOPHILS RELATIVE PERCENT (BEAKER) (test 0 % unru=537) BASOPHILS RELATIVE PERCENT (BEAKER) (test 0 % jshb=500) NEUTROPHILS ABSOLUTE COUNT (BEAKER) (test 25.08 K/ L 1.56-6.13 mosu=763) LYMPHOCYTES ABSOLUTE COUNT (BEAKER) (test 3.03 K/ L 1.18-3.74 jwrt=204) MONOCYTES ABSOLUTE COUNT (BEAKER) (test mtxh=714) 2.33 K/ L 0.24-0.36 EOSINOPHILS ABSOLUTE COUNT (BEAKER) (test 0.03 K/ L 0.04-0.36 yenn=968) BASOPHILS ABSOLUTE COUNT (BEAKER) (test drec=213) 0.18 K/ L 0.01-0.08 IMMATURE GRANULOCYTES-RELATIVE PERCENT (BEAKER) 30 % 0-1 (test ioji=9154) BLOOD GAS, [id number] 18:44:00 Test Item Value Reference Range Comments PH ARTERIAL (BEAKER) (test dsni=071) 7.48 7.35-7.45 PCO2 ARTERIAL (BEAKER) (test bbip=033) 35 mmHg 35-45 PO2 ARTERIAL (BEAKER) (test nzjl=496) 150 mmHg 80-90 O2 SATURATION ARTERIAL (BEAKER) (test dsac=820) 99.1 % 96.0-97.0 HCO3 ARTERIAL (BEAKER) (test klfr=035) 26 mmol/L 21-29 BASE EXCESS ARTERIAL (BEAKER) (test lfvn=773) 2.1 mmol/L -2.0-3.0 PATIENT TEMPERATURE (BEAKER) (test skzj=5324) 36.1 C FIO2 (BEAKER) (test uvhe=8701) 60.0 % [id number] 18:37:00 Test Item Value Reference Range Comments HAPTOGLOBIN (BEAKER) (test znkf=261) 350 mg/dL 14-258 THROMBOELASTOGRAPH (TEG)2017-12-30 18:15:00 Test Item Value Reference Range Comments TEG ACTIVATED CLOTTING TIME (BEAKER) (test 16.9 minutes 4.0-7.0 eydy=8422) TEG FIBRINOGEN ACTIVITY (BEAKER) (test 40.3 degrees 61.0-73.0 rmpo=3660) TEG PLT. AGGREGATION (BEAKER) (test qtdj=6884) 60.5 MM 55.0-65.0 TEG FIBRINOLYSIS (BEAKER) (test zfed=7281) 0.5 % 0.0-5.0 TGH ACTIVATED CLOTTING TIME (BEAKER) (test 7.0 minutes 4.0-7.0 bugr=3933) TGH FIBRINOGEN ACTIVITY (BEAKER) (test 65.7 degrees 61.0-73.0 iyys=2110) TGH PLT. AGGREGATION (BEAKER) (test yxzl=8036) 61.2 MM 55.0-65.0 TGH FIBRINOLYSIS (BEAKER) (test rlka=0844) 0.0 % 0.0-5.0 RAD, CHEST, 1 VIEW, NON [id number] 18:00:00Reason for exam:->s/p emi ECMOShould this be performed at the bedside?->YesFINAL REPORT Chest one view. Clinical history: s/p emi ECMO Comparison: 2017 Discussion: A frontal chest is provided. Cardiomediastinal contours are unchanged. Status post placement of cannula in the superior and inferior vena cava via right IJ approach; right IJ linewas removed. ETT, left IJ, feeding tube , and a left chest tube are in stable position. There is increased perihilar region airspace opacity, which could reflect edema. Mild interstitial prominence is noted. Retrocardiac region atelectasis/consolidation is stable. No pneumothorax, or large effusion. Signed: Jacob Stoll MDReport Verified Date/Time : 12/30/2017 18:00:24 Reading Location: [facility] C0[facility] Consult Reading Room BASI METABOLIC [id number] 17:35:00 Test Item Value Reference Range Comments SODIUM (BEAKER) (test 140 meq/L 136-145 apfu=834) POTASSIUM (BEAKER) (test 4.1 meq/L 3.5-5.1 agmb=616) CHLORIDE (BEAKER) (test 105 meq/L 98-107 rcxq=114) CO2 (BEAKER) (test 26 meq/L 22-29 xnxf=331) BLOOD UREA NITROGEN 28 mg/dL 7-21 (BEAKER) (test nmji=012) CREATININE (BEAKER) (test 1.90 mg/dL 0.57-1.25 gsnl=184) GLUCOSE RANDOM (BEAKER) 89 mg/dL 70-105 (test bxoo=199) CALCIUM (BEAKER) (test 8.3 mg/dL 8.4-10.2 cciq=880) EGFR (BEAKER) (test mL/min/1.73 sq m INSUFFICIENT CLINICAL DATA mmsl=7276) TO CALCULATE ESTIMATED GFR. [id number] 17:29:00 Test Item Value Reference Range Comments POTASSIUM (BEAKER) (test uyec=589) 4.1 meq/L 3.5-5.1 LACTIC ACID, ARTERIAL, WHOLE [id number] 17:27:00 Test Item Value Reference Range Comments LACTATE BLOOD ARTERIAL (2) (BEAKER) (test 1.6 mmol/L 0.5-2.2 zjso=3139) Effective 11/12/2015: Units/Reference Range ChangeNew: 0.5-2.2 mmol/L Previous: 5 -20 mg/dLPT/[id number] 17:16:00 Test Item Value Reference Range Comments PROTIME (BEAKER) (test vofc=430) 15.9 seconds 11.7-14.7 INR (BEAKER) (test estt=189) 1.3 <=5.9 PARTIAL THROMBOPLASTIN TIME (BEAKER) (test 53.3 seconds 22.5-36.0 ephv=474) RECOMMENDED COUMADIN/WARFARIN INR THERAPY RANGESSTANDARD DOSE: 2.0 - 3.0 Includes: PROPHYLAXIS forvenous thrombosis, systemic embolization; TREATMENT for venous thrombosis and/or pulmonary embolus.HIGH RISK: Target INR is 2.5-3.5 for patients with mechanical heart valves.[id number] 17:16:00 Test Item Value Reference Range Comments PARTIAL THROMBOPLASTIN TIME (BEAKER) (test 53.3 seconds 22.5-36.0 dahs=073) PROTHROMBIN [id number] 17:14:00 Test Item Value Reference Range Comments PROTIME (BEAKER) (test uytc=827) 15.9 seconds 11.7-14.7 INR (BEAKER) (test ojii=309) 1.3 <=5.9 RECOMMENDED COUMADIN/WARFARIN INR THERAPY RANGESSTANDARD DOSE: 2.0 - 3.0 Includes: PROPHYLAXIS forvenous thrombosis, systemic embolization; TREATMENT for venous thrombosis and/or pulmonary embolus.HIGH RISK: Target INR is 2.5-3.5 for patients with mechanical heart valves.CALCIUM, [id number] 16:54:00 Test Item Value Reference Range Comments CALCIUM IONIZED (BEAKER) (test wesj=745) 1.10 mmol/L 1.12-1.27 PH, BLOOD (BEAKER) (test kpis=9022) 7.52 BLOOD GAS, [id number] 16:48:00 Test Item Value Reference Range Comments PH ARTERIAL (BEAKER) (test nfru=503) 7.54 7.35-7.45 PCO2 ARTERIAL (BEAKER) (test ugre=850) 32 mmHg 35-45 PO2 ARTERIAL (BEAKER) (test iihb=378) 211 mmHg 80-90 O2 SATURATION ARTERIAL (BEAKER) (test ytqx=549) 99.6 % 96.0-97.0 HCO3 ARTERIAL (BEAKER) (test zpqg=789) 26 mmol/L 21-29 BASE EXCESS ARTERIAL (BEAKER) (test sdgk=051) 3.4 mmol/L -2.0-3.0 PATIENT TEMPERATURE (BEAKER) (test jghp=3694) 36.1 C FIO2 (BEAKER) (test jxce=6283) 90.0 % BLOOD GAS, [id number] 15:17:00 Test Item Value Reference Range Comments PH ARTERIAL (BEAKER) (test brfz=566) 7.55 7.35-7.45 PCO2 ARTERIAL (BEAKER) (test tyzz=394) 30 mmHg 35-45 PO2 ARTERIAL (BEAKER) (test dzjc=256) 213 mmHg 80-90 O2 SATURATION ARTERIAL (BEAKER) (test mfhk=246) 99.6 % 96.0-97.0 HCO3 ARTERIAL (BEAKER) (test cprm=785) 25 mmol/L 21-29 BASE EXCESS ARTERIAL (BEAKER) (test fimg=526) 2.7 mmol/L -2.0-3.0 PATIENT TEMPERATURE (BEAKER) (test tbnn=6501) 37.0 C FIO2 (BEAKER) (test yiln=0761) 100.0 % MISCELLANEOUS LAB [id number] 14:48:00 Test Item Value Reference Range Comments SCAN RESULT (test alws=[id number]) Result comments: Coagulase Negative Staphylococcus Species (CoNS) DETECTED, Methicillin Susceptible First line therapy: cefazolin, nafcillin (nafcillin preferred for Central Nervous System infection) Coagulase Negative Staphylococcus (CoNS) DETECTED mecA NOT DETECTED Other organisms and resistance markers not contained in this PCR panel cannot be excluded and follow-up of traditional culture results is required. This sample was tested at the [facility] Clinical Microbiology Laboratory using the [employer] Blood Culture ID Panel. This test is FDA cleared for in vitro diagnostic use and has been verified and approved by the [facility] Clinical Microbiology laboratory for clinical use. Reference Range: Not DetectedEEG MONITORING WITH VIDEO RECORDING EACH 24 [id number] 12:55:00For STAT EEG- after 5 PM weekdays, weekends and holidays, page the on-call box estimator Reason for exam:->ECMO protocolDate(s) of EE DATE OF REPORT: 12/30/2017 ACC: [id number] EEG Number: [id number] Test Location: Inpatient ICU Start time: 13:11 Stop time: 10:23 ICD-10: R 56.9 CPT Code: 72972 HISTORY: ECMO protocol MEDICATIONS THAT COULD AFFECT EEG: Valproic acid, Fentanyl TECHNICAL SUMMARY: This is a digital video-EEG recorded with 32 input channels reviewed with bipolar and referentialmontages using the modified combinatorial system nomenclature. DESCRIPTION OF RECORD: During the stimulated state, the frequency spectrum consists primarily of diffuse, moderate amplitude 1.5-3 Hz delta, 4-6 Hz theta , which are further admixed with much diffuse beta. Reactivity is evident by emerging of 4-6Hz theta activity on physical stimulation. Neither an occipital dominant rhythm, nor an organized frequency amplitude gradient is well demonstrable. Sleep structures were not seen.SIGNIFICANT VIDEO EVENTS: None SIGNIFICANT ELECTROCARDIOGRAM EVENTS: None HV: Hyperventilationwas not performed. IMPRESSION: Abnormal Coma EEG 1. Moderate diffuse slowing CLINICAL CORRELATION: Diffuse slowing seen in this recording support an underlying moderate encephalopathy.An EEG without epileptiform discharges does not exclude the possibility of epilepsy. Compared to the previous recording, there is no significant change. Sonny Smith MD Attending Neurophysiologist [facility] HEPARIN [id number] 12:39:00 Test Item Value Reference Range Comments HEPARIN ANTIBODY (BEAKER) (test ygkd=418) Negative Negative HEPARIN ANTIBODY OD (BEAKER) (test cfho=8339) 0.115 <0.400 4T TOTAL SCORE (BEAKER) (test psip=0463) 3 Probability of HIT based on scoring system: 6-8=High probability; 4-5= intermediate probability; 0-3=low probabilityURINE [id number] 12:16:00 Test Item Value Reference Range Comments CULTURE (BEAKER) (test knbj=8373) No growth THROMBOELASTOGRAPH (TEG)2017-12-30 10:33:00 Test Item Value Reference Range Comments TEG ACTIVATED CLOTTING TIME (BEAKER) (test 16.8 minutes 4.0-7.0 jcqu=7533) TEG FIBRINOGEN ACTIVITY (BEAKER) (test 34.6 degrees 61.0-73.0 tvbn=7295) TEG PLT. AGGREGATION (BEAKER) (test uoky=3458) 59.0 MM 55.0-65.0 TEG FIBRINOLYSIS (BEAKER) (test qbnm=1877) 0.0 % 0.0-5.0 TGH ACTIVATED CLOTTING TIME (BEAKER) (test 8.4 minutes 4.0-7.0 ubsv=9321) TGH FIBRINOGEN ACTIVITY (BEAKER) (test 56.9 degrees 61.0-73.0 iqdl=0373) TGH PLT. AGGREGATION (BEAKER) (test zpyy=1245) 54.8 MM 55.0-65.0 TGH FIBRINOLYSIS (BEAKER) (test inic=2646) 0.0 % 0.0-5.0 ANTITHROMBIN [id number] 10:05:00 Test Item Value Reference Range Comments ANTITHROMBIN III ACTIVITY (BEAKER) (test fnlz=267) 70.0 % 80.0-120.0 RAD, CHEST, 1 VIEW, NON [id number] 10:01:00Reason for exam:->s/p left chest tubeShould this be performed at the bedside?->YesFINAL REPORT Chest one view INDICATION: Left chest tube COMPARISON: 2017at 0333 hours IMPRESSION: A new tube or drain overlies the upper left heart border and mediastinum. The remaining support devices are in satisfactory position allowing for positional differences. The cardiomediastinal contours are stable. Left retrocardiac consolidation or atelectasis is decreased, within adjacent pleural effusion. Other similar bilateral lung opacities suggest pulmonary edema. Superimposed pneumonitis cannot be excluded. A small lucency overlying the retrocardiac region could reflect focal aerated lung versus a small focus of gas in the mediastinum or pleural space. Signed: Flaca Reece MDReport Verified Date/Time: 12/30/2017 10:01:00 Reading Location: [facility] Radiology Reading Room SPUTUM CULTURE + GRAM [id number] 09:57 :00 Test Item Value Reference Range Comments CULTURE (BEAKER) <1+ Beta-hemolytic (test mfsz=3104) streptococcus group A, by serological grouping GRAM STAIN RESULT 4+ WBCs (BEAKER) (test pioa=2325) GRAM STAIN RESULT 0-5 epithelial cells (BEAKER) (test dvjq=846913) GRAM STAIN RESULT 1+ gram positive cocci (BEAKER) (test in chains, pairs and ahve=284086) clusters No Normal respiratory сергей presentBLOOD GAS, [id number] 08:55:00 Test Item Value Reference Range Comments PH ARTERIAL (BEAKER) (test soew=881) 7.49 7.35-7.45 PCO2 ARTERIAL (BEAKER) (test ftrl=991) 36 mmHg 35-45 PO2 ARTERIAL (BEAKER) (test umrf=745) 89 mmHg 80-90 O2 SATURATION ARTERIAL (BEAKER) (test vzkr=102) 97.6 % 96.0-97.0 HCO3 ARTERIAL (BEAKER) (test hchl=533) 27 mmol/L 21-29 BASE EXCESS ARTERIAL (BEAKER) (test weud=770) 3.1 mmol/L -2.0-3.0 PATIENT TEMPERATURE (BEAKER) (test ppwq=2032) 36.4 C FIO2 (BEAKER) (test elos=8380) 90.0 % CALCIUM, [id number] 08:53:00 Test Item Value Reference Range Comments CALCIUM IONIZED (BEAKER) (test gamh=281) 1.14 mmol/L 1.12-1.27 PH, BLOOD (BEAKER) (test nfnr=1825) 7.48 [id number] 08:38:00 Test Item Value Reference Range Comments POTASSIUM (BEAKER) (test xhrl=142) 4.4 meq/L 3.5-5.1 [id number] 08:38:00 Test Item Value Reference Range Comments MAGNESIUM (BEAKER) (test qwdt=415) 2.4 mg/dL 1.6-2.6 [id number] 08:38:00 Test Item Value Reference Range Comments PHOSPHORUS (BEAKER) (test zitm=106) 3.7 mg/dL 2.3-4.7 [id number] 08:38:00 Test Item Value Reference Range Comments SODIUM (BEAKER) (test jeaf=260) 140 meq/L 136-145 [id number] 08:32:00 Test Item Value Reference Range Comments PARTIAL THROMBOPLASTIN TIME (BEAKER) (test 38.3 seconds 22.5-36.0 gguo=102) HEPARIN ASSAY - [id number] 08:01:00 Test Item Value Reference Range Comments UNFRACTIONATED HEPARIN-ANTI 10A (BEAKER) (test < u/ml 0.30-0.70 afui=8148) Recommendations for Monitoring Unfractionated Heparin Therapeutic Range: 0.3- 0.7 u/mL with continuous IV infusionCBC W/PLT COUNT & AUTO [id number] 08:01:00 Test Item Value Reference Range Comments WHITE BLOOD CELL COUNT (BEAKER) (test qjkk=989) 25.4 K/ L 3.5-10.5 RED BLOOD CELL COUNT (BEAKER) (test swcv=161) 2.49 M/ L 3.93-5.22 HEMOGLOBIN (BEAKER) (test hguk=028) 7.6 GM/DL 11.2-15.7 HEMATOCRIT (BEAKER) (test xzor=727) 22.7 % 34.1-44.9 MEAN CORPUSCULAR VOLUME (BEAKER) (test rpnl=012) 91.2 fL 79.4-94.8 MEAN CORPUSCULAR HEMOGLOBIN (BEAKER) (test 30.5 pg 25.6-32.2 mbze=066) MEAN CORPUSCULAR HEMOGLOBIN CONC (BEAKER) (test 33.5 GM/DL 32.2-35.5 jfej=333) RED CELL DISTRIBUTION WIDTH (BEAKER) (test 15.9 % 11.7-14.4 mvop=180) PLATELET COUNT (BEAKER) (test isuv=346) 46 K/CU MM 150-450 MEAN PLATELET VOLUME (BEAKER) (test mknj=729) 11.2 fL 9.4-12.3 NUCLEATED RED BLOOD CELLS (BEAKER) (test 0 /100 WBC 0-0 tdll=987) (CELLAVISION MANUAL DIFF)2017-12-30 08:01:00 Test Item Value Reference Range Comments NEUTROPHILS - REL (CELLAVISION)(BEAKER) (test 61 % xebl=7120) LYMPHOCYTES - REL (CELLAVISION)(BEAKER) (test 5 % twhu=0173) MONOCYTES - REL (CELLAVISION)(BEAKER) (test 8 % vyok=7253) METAMYELOCYTES - REL (CELLAVISION)(BEAKER) (test 6 % 0-0 gvab=7206) MYELOCYTES - REL (CELLAVISION)(BEAKER) (test 5 % 0-0 fgwh=3744) PROMYELOCYTES - REL (CELLAVSION)(BEAKER) (test 4 % 0-0 fdmd=3507) BANDS - REL (CELLAVISION)(BEAKER) (test 11 % 0-10 mwbx=4457) NEUTROPHILS - ABS (CELLAVISION)(BEAKER) (test 15.49 K/ul 1.56-6.13 izww=8505) LYMPHOCYTES - ABS (CELLAVISION)(BEAKER) (test 1.27 K/ul 1.18-3.74 twtm=9788) MONOCYTES - ABS (CELLAVISION)(BEAKER) (test 2.03 K/uL 0.24-0.36 rorc=3870) METAMYELOCYTES - ABS (CELLAVISION)(BEAKER) (test 1.52 K/uL 0.00-0.00 rvty=4044) MYELOCYTES-ABS (CELLAVISION)(BEAKER) (test 1.27 K/uL 0.00-0.00 tsmf=4671) PROMYELOCYTES - ABS (CELLAVISION)(BEAKER) (test 1.02 K/uL 0.00-0.00 qyjc=6891) BANDS - ABS (CELLAVISION)(BEAKER) (test 2.79 K/uL 0.00-0.80 hiec=1999) TOTAL COUNTED (BEAKER) (test iizh=7391) 100 RBC MORPHOLOGY (BEAKER) (test kprq=280) Normal WBC MORPHOLOGY (BEAKER) (test hvlh=101) Normal PLT MORPHOLOGY (BEAKER) (test oird=349) Normal ARTIFACT (CELLAVISION)(BEAKER) (test qtpx=7932) Present PLATELET CONCENTRATION (CELLAVISION)(BEAKER) Decreased (test bpwp=8164) Received comment: User comments: Slide comments:THROMBOELASTOGRAPH (TEG) 06:53:00 Test Item Value Reference Range Comments TEG ACTIVATED CLOTTING TIME (BEAKER) (test 20.2 minutes 4.0-7.0 yxwh=2134) TEG FIBRINOGEN ACTIVITY (BEAKER) (test 12.0 degrees 61.0-73.0 qztv=2930) TEG PLT. AGGREGATION (BEAKER) (test zkcu=2914) 63.8 MM 55.0-65.0 TEG FIBRINOLYSIS (BEAKER) (test nbjx=9725) 0.0 % 0.0-5.0 TGH ACTIVATED CLOTTING TIME (BEAKER) (test 9.1 minutes 4.0-7.0 goyw=2284) TGH FIBRINOGEN ACTIVITY (BEAKER) (test 60.9 degrees 61.0-73.0 rueo=6898) TGH PLT. AGGREGATION (BEAKER) (test sjff=1864) 65.6 MM 55.0-65.0 TGH FIBRINOLYSIS (BEAKER) (test xnua=1258) 0.0 % 0.0-5.0 RAD, CHEST, 1 VIEW, NON [id number] 06:00:00Reason for exam:->pneumonia ecmoShould this be performed at the bedside?->YesFINAL REPORT Chest one view. Clinical history: pneumonia ecmo Comparison: Chest radiograph 12/29/2017 Technique: A single frontal view of the chest was obtained. Findings: Cardiomediastinal contours are unchanged. Support devices are in satisfactory position. There are persistent bilateral alveolar opacities, left greater than right. There is a small left pleural effusion, grossly unchanged. There is no pneumothorax. Signed: Shad Joseph MDReport Verified Date/Time: 12/30/2017 06:00:37 Reading Location: [facility] C0[facility] Transitional Reading Room Electronically signedby: SHAD JOSEPH MD on 12/30/2017 06:00 AMBLOOD GAS, [id number] 05:37:00 Test Item Value Reference Range Comments PH ARTERIAL (BEAKER) (test dxnl=055) 7.49 7.35-7.45 PCO2 ARTERIAL (BEAKER) (test eybf=143) 39 mmHg 35-45 PO2 ARTERIAL (BEAKER) (test fwfd=792) 556 mmHg 80-90 O2 SATURATION ARTERIAL (BEAKER) (test qnsu=802) 99.9 % 96.0-97.0 HCO3 ARTERIAL (BEAKER) (test flbt=475) 29 mmol/L 21-29 BASE EXCESS ARTERIAL (BEAKER) (test ipbx=233) 5.0 mmol/L -2.0-3.0 PATIENT TEMPERATURE (BEAKER) (test zncq=4449) 36.5 C FIO2 (BEAKER) (test siwn=8331) 100.0 % [id number] 05:07:00 Test Item Value Reference Range Comments CREATININE (BEAKER) (test 1.54 mg/dL 0.57-1.25 pond=548) EGFR (BEAKER) (test mL/min/1.73 sq m INSUFFICIENT CLINICAL DATA zkki=7614) TO CALCULATE ESTIMATED GFR. BASIC METABOLIC [id number] 05:07:00 Test Item Value Reference Range Comments SODIUM (BEAKER) (test 141 meq/L 136-145 ygez=055) POTASSIUM (BEAKER) (test 4.2 meq/L 3.5-5.1 wacj=390) CHLORIDE (BEAKER) (test 105 meq/L 98-107 opal=091) CO2 (BEAKER) (test 26 meq/L 22-29 oatj=995) BLOOD UREA NITROGEN 23 mg/dL 7-21 (BEAKER) (test vtgp=697) CREATININE (BEAKER) (test 1.54 mg/dL 0.57-1.25 uyjm=787) GLUCOSE RANDOM (BEAKER) 123 mg/dL 70-105 (test xxuv=974) CALCIUM (BEAKER) (test 8.5 mg/dL 8.4-10.2 jmzt=366) EGFR (BEAKER) (test mL/min/1.73 sq m INSUFFICIENT CLINICAL DATA jmbe=0746) TO CALCULATE ESTIMATED GFR. BLOOD GAS, [id number] 05:07:00 Test Item Value Reference Range Comments PH ARTERIAL (BEAKER) (test tktj=649) 7.47 7.35-7.45 PCO2 ARTERIAL (BEAKER) (test xqzx=443) 39 mmHg 35-45 PO2 ARTERIAL (BEAKER) (test rfnz=016) 69 mmHg 80-90 O2 SATURATION ARTERIAL (BEAKER) (test wkgt=122) 95.7 % 96.0-97.0 HCO3 ARTERIAL (BEAKER) (test cseo=376) 28 mmol/L 21-29 BASE EXCESS ARTERIAL (BEAKER) (test efvu=641) 3.9 mmol/L -2.0-3.0 PATIENT TEMPERATURE (BEAKER) (test ohba=2074) 35.7 C FIO2 (BEAKER) (test vxcy=4390) 90.0 % [id number] 05:05:00 Test Item Value Reference Range Comments D-DIMER QUANTITATIVE (BEAKER) (test dsry=344) 2.70 MG/L FEU <0.50 Intended Use: The D-Dimer Assay can be used to aid in the diagnosis of Deep Vein Thrombosis (DVT) and Pulmonary Embolism Disease (PED).In patients with low pre-test probability, various studies concerning STA Liatest D-dimer test have reported that with a cutoff value of 0.50 MG/L FEU, the Negative Predictive Value (NPV) regarding the exclusion of thrombosis is within 95-100% range.[id number] 05:01:00 Test Item Value Reference Range Comments BLOOD UREA NITROGEN (BEAKER) (test cfoi=847) 23 mg/dL 7-21 HEPATIC FUNCTION [id number] 05:01:00 Test Item Value Reference Range Comments TOTAL PROTEIN (BEAKER) (test unsy=942) 4.5 gm/dL 6.0-8.3 ALBUMIN (BEAKER) (test djmf=8181) 2.2 g/dL 3.5-5.0 BILIRUBIN TOTAL (BEAKER) (test yjyw=662) 0.4 mg/dL 0.2-1.2 BILIRUBIN DIRECT (BEAKER) (test kvgo=807) 0.3 mg/dL 0.1-0.5 ALKALINE PHOSPHATASE (BEAKER) (test xbbn=265) 62 U/L 40-150 AST (SGOT) (BEAKER) (test lmgl=223) 49 U/L 5-34 ALT (SGPT) (BEAKER) (test cehi=805) 22 U/L 6-55 [id number] 05:01:00 Test Item Value Reference Range Comments SODIUM (BEAKER) (test lsxf=941) 141 meq/L 136-145 POTASSIUM (BEAKER) (test csan=966) 4.2 meq/L 3.5-5.1 CHLORIDE (BEAKER) (test rwky=370) 105 meq/L 98-107 CO2 (BEAKER) (test hdzr=898) 26 meq/L 22-29 [id number] 05:01:00 Test Item Value Reference Range Comments MAGNESIUM (BEAKER) (test flqg=365) 2.1 mg/dL 1.6-2.6 [id number] 05:01:00 Test Item Value Reference Range Comments PHOSPHORUS (BEAKER) (test hqzf=434) 3.3 mg/dL 2.3-4.7 [id number] 05:01:00 Test Item Value Reference Range Comments GLUCOSE RANDOM (BEAKER) (test vhpt=061) 123 mg/dL 70-105 LACTATE DEHYDROGENASE (LDH)2017-12-30 05:01:00 Test Item Value Reference Range Comments LACTATE DEHYDROGENASE (BEAKER) (test kyxn=037) 419 U/L 125-220 CALCIUM, [id number] 05:00:00 Test Item Value Reference Range Comments CALCIUM IONIZED (BEAKER) (test mquo=476) 1.16 mmol/L 1.12-1.27 PH, BLOOD (BEAKER) (test idva=7871) 7.45 [id number] 04:59:00 Test Item Value Reference Range Comments FIBRINOGEN LEVEL (BEAKER) (test naqp=059) 616 mg/dl 225-434 PROTHROMBIN TIME/[id number] 04:56:00 Test Item Value Reference Range Comments PROTIME (BEAKER) (test fhht=112) 15.5 seconds 11.7-14.7 INR (BEAKER) (test tlmb=288) 1.2 <=5.9 RECOMMENDED COUMADIN/WARFARIN INR THERAPY RANGESSTANDARD DOSE: 2.0 - 3.0 Includes: PROPHYLAXIS forvenous thrombosis, systemic embolization; TREATMENT for venous thrombosis and/or pulmonary embolus.HIGH RISK: Target INR is 2.5-3.5 for patients with mechanical heart valves.[id number] 04:55:00 Test Item Value Reference Range Comments PARTIAL THROMBOPLASTIN TIME (BEAKER) (test 49.9 seconds 22.5-36.0 bhom=072) LACTIC ACID, ARTERIAL, WHOLE [id number] 04:54:00 Test Item Value Reference Range Comments LACTATE BLOOD ARTERIAL (2) (BEAKER) (test 1.0 mmol/L 0.5-2.2 yvzf=5572) Effective 11/12/2015: Units/Reference Range ChangeNew: 0.5-2.2 mmol/L Previous: 5 -20 mg/[id number] 01:14:00 Test Item Value Reference Range Comments POTASSIUM (BEAKER) (test nvzh=343) 4.2 meq/L 3.5-5.1 BLOOD GAS, [id number] 01:06:00 Test Item Value Reference Range Comments PH ARTERIAL (BEAKER) (test nhov=385) 7.45 7.35-7.45 PCO2 ARTERIAL (BEAKER) (test zadx=518) 41 mmHg 35-45 PO2 ARTERIAL (BEAKER) (test fpsy=137) 80 mmHg 80-90 O2 SATURATION ARTERIAL (BEAKER) (test zrym=518) 96.6 % 96.0-97.0 HCO3 ARTERIAL (BEAKER) (test ymvb=885) 28 mmol/L 21-29 BASE EXCESS ARTERIAL (BEAKER) (test nscr=521) 3.5 mmol/L -2.0-3.0 PATIENT TEMPERATURE (BEAKER) (test ciib=1457) 36.3 C FIO2 (BEAKER) (test ctdh=4034) 100.0 % CALCIUM, [id number] 01:02:00 Test Item Value Reference Range Comments CALCIUM IONIZED (BEAKER) (test oyrd=700) 1.13 mmol/L 1.12-1.27 PH, BLOOD (BEAKER) (test doqg=1204) 7.44 RAD, CHEST, 1 VIEW, NON [id number] 00:08:00Reason for exam:->ETT exchangeShould this be performed at the bedside?->YesFINAL REPORT EXAMINATION: AP PORTABLE CHEST RADIOGRAPH CLINICAL INDICATION: Endotracheal tube placement IMPRESSION: Compared with 12/29/2017, 1111 hours. The tip of the endotracheal tube projects over the midline approximately 2.4 cm superior to the wally. Bilateral jugular central lines are again noted with the tips projecting along the expected course of the superior vena cava. A large caliber femoral catheter is also again noted with its tip projecting over the junction ofthe superior vena cava and right atrium. The tip of the nasogastric tube extends below the diaphragmand inferior margin of today's study. Incompletely visualized coiled segments of catheter tubing project over the patient's lower neck. Although findings may be external to the patient, coiled cathetertubing related to the nasogastric tube within the patient's hypopharynx would also be consideration.Recommend clinical correlation. Scattered bilateral lung opacities and the left pleural effusion aregrossly stable. Cardiac and mediastinal contours are also unchanged. No definite evidence of new lung consolidation or pneumothorax. Signed: Milind Laguerre MDReport Verified Date/Time: 12/30/2017 00:08:59 Reading Location: [address] Reading Room [id number] 20:40:00 Test Item Value Reference Range Comments POTASSIUM (BEAKER) (test jbpo=417) 4.2 meq/L 3.5-5.1 [id number] 20:40:00 Test Item Value Reference Range Comments MAGNESIUM (BEAKER) (test qmwa=820) 2.1 mg/dL 1.6-2.6 [id number] 20:40:00 Test Item Value Reference Range Comments PHOSPHORUS (BEAKER) (test wajh=371) 2.7 mg/dL 2.3-4.7 [id number] 20:40:00 Test Item Value Reference Range Comments SODIUM (BEAKER) (test jnpk=149) 140 meq/L 136-145 HEPARIN ASSAY - [id number] 20:40:00 Test Item Value Reference Range Comments UNFRACTIONATED HEPARIN-ANTI 10A (BEAKER) (test < u/ml 0.30-0.70 sadp=4376) Recommendations for Monitoring Unfractionated Heparin Therapeutic Range: 0.3- 0.7 u/mL with continuous IV infusionBLOOD GAS, [id number] 20:20:00 Test Item Value Reference Range Comments PH ARTERIAL (BEAKER) (test jrid=328) 7.45 7.35-7.45 PCO2 ARTERIAL (BEAKER) (test ihos=318) 41 mmHg 35-45 PO2 ARTERIAL (BEAKER) (test vbqd=136) 85 mmHg 80-90 O2 SATURATION ARTERIAL (BEAKER) (test agvo=500) 97.0 % 96.0-97.0 HCO3 ARTERIAL (BEAKER) (test bgdh=780) 28 mmol/L 21-29 BASE EXCESS ARTERIAL (BEAKER) (test apau=744) 3.1 mmol/L -2.0-3.0 PATIENT TEMPERATURE (BEAKER) (test dotv=7302) 36.3 C FIO2 (BEAKER) (test tfem=9695) 100.0 % THROMBOELASTOGRAPH (TEG)2017-12-29 19:55:00 Test Item Value Reference Range Comments TEG ACTIVATED CLOTTING TIME (BEAKER) (test 18.4 minutes 4.0-7.0 vlqn=2795) TEG FIBRINOGEN ACTIVITY (BEAKER) (test 24.0 degrees 61.0-73.0 adgn=8660) TEG PLT. AGGREGATION (BEAKER) (test eulg=6383) 48.5 MM 55.0-65.0 TEG FIBRINOLYSIS (BEAKER) (test ugez=7262) 0.0 % 0.0-5.0 TGH ACTIVATED CLOTTING TIME (BEAKER) (test 8.8 minutes 4.0-7.0 tate=7108) TGH FIBRINOGEN ACTIVITY (BEAKER) (test 58.5 degrees 61.0-73.0 ynfn=2664) TGH PLT. AGGREGATION (BEAKER) (test djpo=6132) 53.6 MM 55.0-65.0 TGH FIBRINOLYSIS (BEAKER) (test fflf=0484) 0.0 % 0.0-5.0 PROTEIN, BODY [id number] 19:53:00 Test Item Value Reference Range Comments PROTEIN FLUID (BEAKER) (test 3.4 g/dL Light's criteria identifies vryj=062) effusions if one or more are pre Absence of reference range indicates that normals have not been defined.Assay performance has not been validated for this type of specimen.Please use existing specimenGLUCOSE, BODY [id number] 19:53:00 Test Item Value Reference Range Comments GLUCOSE, BODY FLUID (BEAKER) (test rusg=7350) < mg/dL 70-110 Absence of reference range indicates that normals have not been defined.Assay performance has not been validated for this type of specimen.Please use existing specimenFIBRIN SOLUBLE [id number] 19:33:00 Test Item Value Reference Range Comments FIBRIN SOLUBLE MONOMER (BEAKER) (test etth=1177) Negative BLOOD GAS, [id number] 18:50:00 Test Item Value Reference Range Comments PH ARTERIAL (BEAKER) (test oppa=112) 7.42 7.35-7.45 PCO2 ARTERIAL (BEAKER) (test wcer=613) 43 mmHg 35-45 PO2 ARTERIAL (BEAKER) (test wkbv=466) 72 mmHg 80-90 O2 SATURATION ARTERIAL (BEAKER) (test rlnj=737) 95.3 % 96.0-97.0 HCO3 ARTERIAL (BEAKER) (test dnjb=386) 27 mmol/L 21-29 BASE EXCESS ARTERIAL (BEAKER) (test gosc=406) 2.0 mmol/L -2.0-3.0 PATIENT TEMPERATURE (BEAKER) (test sskn=9826) 36.1 C FIO2 (BEAKER) (test arrp=0256) 90.0 % GLUCOSE-STAT [id number] 18:50:00 Test Item Value Reference Range Comments GLUCOSE RANDOM (BEAKER) (test etxz=631) 127 mg/dL 70-110 HGB/HCT (H&H) - STAT [id number] 18:50:00 Test Item Value Reference Range Comments HEMOGLOBIN (BEAKER) (test pwfu=633) 9.4 g/dL 12.0-15.0 HEMATOCRIT (BEAKER) (test vhpv=956) 28.0 % 36.0-45.0 SODIUM NA-STAT [id number] 18:48:00 Test Item Value Reference Range Comments SODIUM (BEAKER) (test riaq=600) 136 meq/L 135-148 POTASSIUM-STAT [id number] 18:48:00 Test Item Value Reference Range Comments POTASSIUM (BEAKER) (test arbx=870) 4.1 meq/L 3.6-5.5 [id number] 18:25:00 Test Item Value Reference Range Comments PARTIAL THROMBOPLASTIN TIME (BEAKER) (test 40.6 seconds 22.5-36.0 itti=183) BLOOD GAS, [id number] 18:10:00 Test Item Value Reference Range Comments PH ARTERIAL (BEAKER) (test dznp=491) 7.43 7.35-7.45 PCO2 ARTERIAL (BEAKER) (test gxwq=197) 43 mmHg 35-45 PO2 ARTERIAL (BEAKER) (test hljy=375) 70 mmHg 80-90 O2 SATURATION ARTERIAL (BEAKER) (test qllr=373) 94.9 % 96.0-97.0 HCO3 ARTERIAL (BEAKER) (test aekm=578) 28 mmol/L 21-29 BASE EXCESS ARTERIAL (BEAKER) (test qwwk=352) 3.2 mmol/L -2.0-3.0 PATIENT TEMPERATURE (BEAKER) (test gpcp=4277) 36.5 C FIO2 (BEAKER) (test scqu=5114) 90.0 % FIBRIN SOLUBLE [id number] 17:56:00 Test Item Value Reference Range Comments FIBRIN SOLUBLE MONOMER (BEAKER) (test utoh=2076) Negative THROMBOELASTOGRAPH (TEG)2017-12-29 17:52:00 Test Item Value Reference Range Comments TEG ACTIVATED CLOTTING TIME (BEAKER) (test 14.4 minutes 4.0-7.0 clbp=4598) TEG FIBRINOGEN ACTIVITY (BEAKER) (test 40.8 degrees 61.0-73.0 rhyo=6534) TEG PLT. AGGREGATION (BEAKER) (test ihiv=3254) 54.4 MM 55.0-65.0 TEG FIBRINOLYSIS (BEAKER) (test rkow=9446) 0.0 % 0.0-5.0 TGH ACTIVATED CLOTTING TIME (BEAKER) (test 8.3 minutes 4.0-7.0 mlbn=8478) TGH FIBRINOGEN ACTIVITY (BEAKER) (test 61.3 degrees 61.0-73.0 oddn=6103) TGH PLT. AGGREGATION (BEAKER) (test nmci=2647) 56.2 MM 55.0-65.0 TGH FIBRINOLYSIS (BEAKER) (test zpbf=9270) 0.0 % 0.0-5.0 [id number] 16:48:00 Test Item Value Reference Range Comments D-DIMER QUANTITATIVE (BEAKER) (test fohn=450) 12.34 MG/L FEU <0.50 Intended Use: The D-Dimer Assay can be used to aid in the diagnosis of Deep Vein Thrombosis (DVT) and Pulmonary Embolism Disease (PED).In patients with low pre-test probability, various studies concerning STA Liatest D-dimer test have reported that with a cutoff value of 0.50 MG/L FEU, the Negative Predictive Value (NPV) regarding the exclusion of thrombosis is within 95-100% range.[id number] 16:39:00 Test Item Value Reference Range Comments FIBRINOGEN LEVEL (BEAKER) (test vwvw=385) 616 mg/dl 225-434 [id number] 16:39:00 Test Item Value Reference Range Comments PARTIAL THROMBOPLASTIN TIME (BEAKER) (test 42.1 seconds 22.5-36.0 sgbw=403) PROTHROMBIN [id number] 16:38:00 Test Item Value Reference Range Comments PROTIME (BEAKER) (test oduk=918) 15.5 seconds 11.7-14.7 INR (BEAKER) (test gjrv=919) 1.2 <=5.9 RECOMMENDED COUMADIN/WARFARIN INR THERAPY RANGESSTANDARD DOSE: 2.0 - 3.0 Includes: PROPHYLAXIS forvenous thrombosis, systemic embolization; TREATMENT for venous thrombosis and/or pulmonary embolus.HIGH RISK: Target INR is 2.5-3.5 for patients with mechanical heart valves.[id number] 16:26:00 Test Item Value Reference Range Comments POTASSIUM (BEAKER) (test itxf=185) 4.3 meq/L 3.5-5.1 PLATELET [id number] 16:17:00 Test Item Value Reference Range Comments PLATELET COUNT (BEAKER) (test czss=093) 60 K/CU MM 150-450 CALCIUM, [id number] 16:12:00 Test Item Value Reference Range Comments CALCIUM IONIZED (BEAKER) (test yofr=630) 1.13 mmol/L 1.12-1.27 PH, BLOOD (BEAKER) (test xvqx=3735) 7.41 BLOOD GAS, [id number] 16:09:00 Test Item Value Reference Range Comments PH ARTERIAL (BEAKER) (test njnr=082) 7.41 7.35-7.45 PCO2 ARTERIAL (BEAKER) (test gzgg=736) 42 mmHg 35-45 PO2 ARTERIAL (BEAKER) (test naah=919) 85 mmHg 80-90 O2 SATURATION ARTERIAL (BEAKER) (test glfa=184) 96.7 % 96.0-97.0 HCO3 ARTERIAL (BEAKER) (test vnho=295) 27 mmol/L 21-29 BASE EXCESS ARTERIAL (BEAKER) (test ukrd=815) 1.7 mmol/L -2.0-3.0 PATIENT TEMPERATURE (BEAKER) (test rlex=5814) 36.4 C FIO2 (BEAKER) (test nlyq=5404) 100.0 % EEG AWAKE AND [id number] 15:37:00Date(s) of EE12/29/2017DATE OF REPORT: 12/29/2017ACC: [id number] Number: [id number] Location: Inpatient ICUStart time: 12:51Stop time: 13:11ICD-10: R 56.9CPT Code: 65985 HISTORY: ECMO protocol MEDICATIONS THAT COULD AFFECT [...] occipital dominant rhythm, nor an organized frequency amplitudegradient is well demonstrable. Sleep structures were not [...] exclude the possibility of epilepsy. Clara Perez MDNeurophysiology Fellow, PGY5 Sonny Smith MDAttending NeurophysiologistCHI [facility] [id number] 14:39:00 Test Item Value Reference Range Comments POTASSIUM (BEAKER) (test fxwi=951) 4.3 meq/L 3.5-5.1 PH, BODY [id number] 14:02:00 Test Item Value Reference Range Comments PH, BODY FLUID (BEAKER) (test lljo=5723) 7.26 BLOOD GAS, [id number] 13:58:00 Test Item Value Reference Range Comments PH ARTERIAL (BEAKER) (test ujgr=708) 7.44 7.35-7.45 PCO2 ARTERIAL (BEAKER) (test jffb=094) 40 mmHg 35-45 PO2 ARTERIAL (BEAKER) (test idno=225) 72 mmHg 80-90 O2 SATURATION ARTERIAL (BEAKER) (test zolg=536) 95.6 % 96.0-97.0 HCO3 ARTERIAL (BEAKER) (test jtly=477) 27 mmol/L 21-29 BASE EXCESS ARTERIAL (BEAKER) (test ignv=631) 2.2 mmol/L -2.0-3.0 PATIENT TEMPERATURE (BEAKER) (test sjbt=9005) 36.1 C FIO2 (BEAKER) (test bffa=0271) 100.0 % POCT-GLUCOSE [id number] 13:55:00 Test Item Value Reference Range Comments POC-GLUCOSE METER (BEAKER) 132 mg/dL 70-110 TESTED AT [address] (test kijo=3833) [facility] [address] POCT-GLUCOSE [id number] 13:55:00 Test Item Value Reference Range Comments POC-GLUCOSE METER (BEAKER) 140 mg/dL 70-110 TESTED AT [address] (test mqeg=9190) [facility] [address] POCT-GLUCOSE [id number] 13:55:00 Test Item Value Reference Range Comments POC-GLUCOSE METER (BEAKER) 137 mg/dL 70-110 TESTED AT [address] (test fzim=7997) [facility] [address] POCT-GLUCOSE [id number] 13:55:00 Test Item Value Reference Range Comments POC-GLUCOSE METER (BEAKER) 149 mg/dL 70-110 TESTED AT [address] (test behp=0635) [facility] [address] POCT-GLUCOSE [id number] 13:55:00 Test Item Value Reference Range Comments POC-GLUCOSE METER (BEAKER) 159 mg/dL 70-110 TESTED AT [address] (test qbvk=1130) [facility] [address] POCT-GLUCOSE [id number] 13:55:00 Test Item Value Reference Range Comments POC-GLUCOSE METER (BEAKER) 142 mg/dL 70-110 TESTED AT [address] (test jmgs=1713) [facility] [address] POCT-GLUCOSE [id number] 13:55:00 Test Item Value Reference Range Comments POC-GLUCOSE METER (BEAKER) 135 mg/dL 70-110 TESTED AT [address] (test mbqt=0415) [facility] [address] POCT-GLUCOSE [id number] 13:54:00 Test Item Value Reference Range Comments POC-GLUCOSE METER (BEAKER) 94 mg/dL 70-110 TESTED AT [address] (test tagv=0757) [place] [id number] BODY FLUID CELL COUNT WITH [id number] 13:50:00 Test Item Value Reference Range Comments APPEARANCE FLUID (BEAKER) (test qmdf=177) Hazy Clear COLOR FLUID (BEAKER) (test xbnk=636) Yellow Colorless, Straw RBC FLUID (BEAKER) (test kewp=077) [address] /cu mm <=1 ADJUSTED WBC FLUID (BEAKER) (test xmbg=7609) [address] /cu mm <=5 LINING CELLS (BEAKER) (test coro=6998) 0 /cu mm <=1 NEUTROPHILS FLUID (BEAKER) (test axck=5834) 63 % LYMPHS FLUID (BEAKER) (test fwxz=682) 3 % MONO/MACROPHAGE FLUID (BEAKER) (test oznd=346) 34 % EOSINOPHILS FLUID (BEAKER) (test iqhx=731) 0 % BASO FLUID (BEAKER) (test dkgo=552) 0 % CONTAINER BODY FLUID (BEAKER) (test sfcd=4062) EDTA Tube BLOOD GAS, [id number] 11:35:00 Test Item Value Reference Range Comments PH ARTERIAL (BEAKER) (test pckj=589) 7.43 7.35-7.45 PCO2 ARTERIAL (BEAKER) (test qkgd=329) 35 mmHg 35-45 PO2 ARTERIAL (BEAKER) (test wqhd=839) 61 mmHg 80-90 O2 SATURATION ARTERIAL (BEAKER) (test qkfm=230) 92.7 % 96.0-97.0 HCO3 ARTERIAL (BEAKER) (test akjw=196) 23 mmol/L 21-29 BASE EXCESS ARTERIAL (BEAKER) (test vxuk=077) -1.0 mmol/L -2.0-3.0 PATIENT TEMPERATURE (BEAKER) (test ufyt=1058) 36.5 C FIO2 (BEAKER) (test ihtt=8437) 100.0 % LACTATE DEHYDROGENASE (LDH), BODY [id number] 11:26:00 Test Item Value Reference Range Comments LACTATE DEHYDROGENASE FLUID 7914 U/L Light's criteria identifies (BEAKER) (test ptvl=655) effusions if one or more are pre Absence of reference range indicates that normals have not been defined.Assay performance has not been validated for this type of specimen.ALBUMIN, BODY [id number] 11:26:00 Test Item Value Reference Range Comments ALBUMIN FLUID (BEAKER) (test xjtx=736) 1.8 gm/dL Reference Range: No Normals Assay performance has not been validated for this type of specimen.RAD, CHEST, 1 VIEW, NON [id number] 11:24:00Reason for exam: ->Post thoracentesis Should this be performed at the bedside?->YesFINAL REPORT Chest one view INDICATION: Post thoracentesis COMPARISON: 12/29/2017 IMPRESSION: Support devices are stable. The left pleural effusion has decreased post thoracentesis. No definite pneumothorax is seen. Cardiac silhouette is enlarged. Pulmonary edema is similar in appearance. Left retrocardiac consolidation or atelectasis remains present. Signed: Flaca Reece [facility] Verified Date/Time: 12/29/2017 11:24:40 Reading Location: [facility] Radiology ReadingRoom SPUTUM CULTURE + GRAM [id number] 10:47 :00 Test Item Value Reference Range Comments CULTURE (BEAKER) (test 4+ Normal respiratory сергей pmln=8876) present GRAM STAIN RESULT (BEAKER) 2+ WBCs (test bprd=1023) GRAM STAIN RESULT (BEAKER) 0-5 epithelial cells (test lyng=80032) GRAM STAIN RESULT (BEAKER) 1+ gram positive cocci in chains (test fwed=60459) and pairs BLOOD GAS, [id number] 10:03:00 Test Item Value Reference Range Comments PH ARTERIAL (BEAKER) (test awvx=934) 7.40 7.35-7.45 PCO2 ARTERIAL (BEAKER) (test gkdr=774) 44 mmHg 35-45 PO2 ARTERIAL (BEAKER) (test pdsi=502) 491 mmHg 80-90 O2 SATURATION ARTERIAL (BEAKER) (test uagk=552) 99.9 % 96.0-97.0 HCO3 ARTERIAL (BEAKER) (test kvbn=484) 27 mmol/L 21-29 BASE EXCESS ARTERIAL (BEAKER) (test jtbt=374) 1.7 mmol/L -2.0-3.0 PATIENT TEMPERATURE (BEAKER) (test lmyb=2287) 36.4 C FIO2 (BEAKER) (test ocyo=0434) 100.0 % Post Oxygenator Gas.THROMBOELASTOGRAPH (TEG)2017-12-29 09:57:00 Test Item Value Reference Range Comments TEG ACTIVATED CLOTTING TIME (BEAKER) (test 6.2 minutes 4.0-7.0 sskx=7165) TEG FIBRINOGEN ACTIVITY (BEAKER) (test 64.1 degrees 61.0-73.0 fqfk=4907) TEG PLT. AGGREGATION (BEAKER) (test pznd=8018) 57.1 MM 55.0-65.0 TEG FIBRINOLYSIS (BEAKER) (test cgpv=6649) 0.3 % 0.0-5.0 TGH ACTIVATED CLOTTING TIME (BEAKER) (test 6.2 minutes 4.0-7.0 vokt=8860) TGH FIBRINOGEN ACTIVITY (BEAKER) (test 61.3 degrees 61.0-73.0 rwnj=7671) TGH PLT. AGGREGATION (BEAKER) (test jjah=9644) 53.2 MM 55.0-65.0 TGH FIBRINOLYSIS (BEAKER) (test eung=6692) 0.7 % 0.0-5.0 CBC W/PLT COUNT & AUTO [id number] 09:51:00 Test Item Value Reference Range Comments WHITE BLOOD CELL COUNT (BEAKER) (test fbgs=511) 19.0 K/ L 3.5-10.5 RED BLOOD CELL COUNT (BEAKER) (test fhgh=265) 3.21 M/ L 3.93-5.22 HEMOGLOBIN (BEAKER) (test yyie=098) 9.6 GM/DL 11.2-15.7 HEMATOCRIT (BEAKER) (test ldky=387) 30.0 % 34.1-44.9 MEAN CORPUSCULAR VOLUME (BEAKER) (test bcax=302) 93.5 fL 79.4-94.8 MEAN CORPUSCULAR HEMOGLOBIN (BEAKER) (test 29.9 pg 25.6-32.2 aroh=596) MEAN CORPUSCULAR HEMOGLOBIN CONC (BEAKER) (test 32.0 GM/DL 32.2-35.5 xeba=863) RED CELL DISTRIBUTION WIDTH (BEAKER) (test 15.7 % 11.7-14.4 hvwt=397) PLATELET COUNT (BEAKER) (test sxrd=672) 78 K/CU MM 150-450 MEAN PLATELET VOLUME (BEAKER) (test ewtk=388) 10.2 fL 9.4-12.3 NUCLEATED RED BLOOD CELLS (BEAKER) (test 1 /100 WBC 0-0 xylu=953) (MANUAL DIFFERENTIAL)2017-12-29 09:51:00 Test Item Value Reference Range Comments NEUTROPHILS - REL (DIFF) (BEAKER) (test qhaa=9017) 46 % LYMPHOCYTES - REL (DIFF) (BEAKER) (test rfgt=1079) 6 % MONOCYTES - REL (DIFF) (BEAKER) (test kdbn=7286) 6 % MYELOCYTES-REL (DIFF) (BEAKER) (test mimf=0894) 2 % 0-0 BANDS - REL (DIFF) (BEAKER) (test cnjj=2124) 40 % 0-10 NEUTROPHILS - ABS (DIFF) (BEAKER) (test agqz=7707) 8.74 K/ L 1.80-8.00 LYMPHOCYTES - ABS (DIFF) (BEAKER) (test nghs=2312) 1.14 K/ L 1.48-4.50 MONOCYTES - ABS (DIFF) (BEAKER) (test mtxd=0683) 1.14 K/ L 0.00-1.30 BANDS-ABS (DIFF) (BEAKER) (test fgtd=9978) 7.6 K/ L 0.0-0.8 MYELOCYTES-ABS (DIFF) (BEAKER) (test fhwf=3544) 0.38 K/ L 0.00-0.00 TOTAL COUNTED (BEAKER) (test mpzh=6638) 100 BANDS + SEGMENTED NEUTROPHILS (BEAKER) (test 16.34 xerw=2358) PLT MORPHOLOGY (BEAKER) (test vsvg=406) Normal RBC MORPHOLOGY (BEAKER) (test fqph=949) Normal VACUOLATED NEUTROPHILS (BEAKER) (test zgqu=384) Present ANTITHROMBIN [id number] 09:49:00 Test Item Value Reference Range Comments ANTITHROMBIN III ACTIVITY (BEAKER) (test lhcs=459) 38.0 % 80.0-120.0 ANTITHROMBIN [id number] 09:10:00 Test Item Value Reference Range Comments ANTITHROMBIN III ACTIVITY (BEAKER) (test ziou=159) 35.0 % 80.0-120.0 [id number] 08:41:00 Test Item Value Reference Range Comments POTASSIUM (BEAKER) (test xhku=653) 4.3 meq/L 3.5-5.1 [id number] 08:41:00 Test Item Value Reference Range Comments MAGNESIUM (BEAKER) (test dnkk=844) 2.1 mg/dL 1.6-2.6 [id number] 08:41:00 Test Item Value Reference Range Comments PHOSPHORUS (BEAKER) (test pzwj=747) 3.7 mg/dL 2.3-4.7 [id number] 08:41:00 Test Item Value Reference Range Comments SODIUM (BEAKER) (test bmrw=419) 136 meq/L 136-145 [id number] 08:34:00 Test Item Value Reference Range Comments PARTIAL THROMBOPLASTIN TIME (BEAKER) (test 34.6 seconds 22.5-36.0 ljnr=315) CALCIUM, [id number] 08:20:00 Test Item Value Reference Range Comments CALCIUM IONIZED (BEAKER) (test ngbz=935) 1.19 mmol/L 1.12-1.27 PH, BLOOD (BEAKER) (test qvvn=1259) 7.44 BLOOD GAS, [id number] 08:20:00 Test Item Value Reference Range Comments PH ARTERIAL (BEAKER) (test xiis=272) 7.45 7.35-7.45 PCO2 ARTERIAL (BEAKER) (test bipl=944) 39 mmHg 35-45 PO2 ARTERIAL (BEAKER) (test bnhk=439) 68 mmHg 80-90 O2 SATURATION ARTERIAL (BEAKER) (test udgj=163) 94.9 % 96.0-97.0 HCO3 ARTERIAL (BEAKER) (test bgtp=318) 27 mmol/L 21-29 BASE EXCESS ARTERIAL (BEAKER) (test mlgi=871) 2.8 mmol/L -2.0-3.0 PATIENT TEMPERATURE (BEAKER) (test pdxu=1933) 36.3 C FIO2 (BEAKER) (test aajn=3591) 100.0 % CT BRAIN WITHOUT IV CONTRAST - [id number] 07:29:00Reason for exam:-> ECMO protocolFINAL REPORT CT Head without contrast CLINICAL HISTORY: ECMO protocol TECHNIQUE: Contiguous axial images through the head without contrast on the portable CT unit. This exam was performed according to the departmental dose optimization program which includes automated exposure control, adjustment of the mA and/or kV according to the patient size, and/or use of an iterative reconstruction technique. COMPARISON: None FINDINGS: The study is motion degraded, especially through theposterior fossa, exacerbated by the portable technique. Posterior fossa infarction or hemorrhage cannot be excluded. Supratentorially, there is questionable loss of doran-white differentiation the bilateral frontoparietal lobes, although this may be due to the degraded portable technique. Clinical correlation is requested. There is no hydrocephalus or midline shift. The skull is intact. There is fluidin the paranasal sinuses with support tubing in place. IMPRESSION : Limited portable CT as discussed above. Clinical correlation is requested with repeat imaging with conventional CT or MRI if clinically warranted. Signed : Evan Lyon MDReport Verified Date/Time: 12/29/2017 07:29:43 Reading Location: [address] Neuro Reading Room THROMBOELASTOGRAPH (TEG)2017-12-29 06:19:00 Test Item Value Reference Range Comments TEG ACTIVATED CLOTTING TIME (BEAKER) (test 34.7 minutes 4.0-7.0 gvzi=2663) TEG FIBRINOGEN ACTIVITY (BEAKER) (test 7.8 degrees 61.0-73.0 intq=3109) TEG PLT. AGGREGATION (BEAKER) (test pcmt=1833) 14.7 MM 55.0-65.0 TEG FIBRINOLYSIS (BEAKER) (test cgvz=5098) 0.0 % 0.0-5.0 TGH ACTIVATED CLOTTING TIME (BEAKER) (test 10.9 minutes 4.0-7.0 vaeg=7000) TGH FIBRINOGEN ACTIVITY (BEAKER) (test 58.8 degrees 61.0-73.0 udkd=6430) TGH PLT. AGGREGATION (BEAKER) (test fafx=4906) 54.3 MM 55.0-65.0 TGH FIBRINOLYSIS (BEAKER) (test bpaq=5982) 0.2 % 0.0-5.0 BLOOD GAS, [id number] 05:22:00 Test Item Value Reference Range Comments PH ARTERIAL (BEAKER) (test hfcm=826) 7.37 7.35-7.45 PCO2 ARTERIAL (BEAKER) (test lcxj=981) 47 mmHg 35-45 PO2 ARTERIAL (BEAKER) (test nfdp=783) 57 mmHg 80-90 O2 SATURATION ARTERIAL (BEAKER) (test jfub=236) 89.1 % 96.0-97.0 HCO3 ARTERIAL (BEAKER) (test ubgz=133) 27 mmol/L 21-29 BASE EXCESS ARTERIAL (BEAKER) (test cnyt=339) 0.7 mmol/L -2.0-3.0 PATIENT TEMPERATURE (BEAKER) (test ogcr=7935) 36.5 C FIO2 (BEAKER) (test zmyf=2452) 100.0 % [id number] 05:08:00 Test Item Value Reference Range Comments PARTIAL THROMBOPLASTIN TIME (BEAKER) (test 62.7 seconds 22.5-36.0 qlrt=674) Prior to Initiating HeparinHEPARIN ASSAY - [id number] 05:04:00 Test Item Value Reference Range Comments UNFRACTIONATED HEPARIN-ANTI 10A (BEAKER) (test 0.19 u/ml 0.30-0.70 reku=9068) Recommendations for Monitoring Unfractionated Heparin Therapeutic Range: 0.3- 0.7 u/mL with continuous IV infusionOXYGEN SATURATION, [id number] 04:37: 00 Test Item Value Reference Range Comments O2 SATURATION (MEASURED) (BEAKER) (test gwmt=3434) 69.2 % BLOOD GAS, [id number] 04:34:00 Test Item Value Reference Range Comments PH ARTERIAL (BEAKER) (test eome=523) 7.37 7.35-7.45 PCO2 ARTERIAL (BEAKER) (test mqmd=872) 48 mmHg 35-45 PO2 ARTERIAL (BEAKER) (test zhju=133) 52 mmHg 80-90 O2 SATURATION ARTERIAL (BEAKER) (test iuxf=689) 86.3 % 96.0-97.0 HCO3 ARTERIAL (BEAKER) (test ditb=323) 27 mmol/L 21-29 BASE EXCESS ARTERIAL (BEAKER) (test npfq=704) 1.4 mmol/L -2.0-3.0 PATIENT TEMPERATURE (BEAKER) (test hbye=8855) 36.5 C FIO2 (BEAKER) (test hroo=8524) 100.0 % CALCIUM, [id number] 04:34:00 Test Item Value Reference Range Comments CALCIUM IONIZED (BEAKER) (test koyb=799) 1.16 mmol/L 1.12-1.27 PH, BLOOD (BEAKER) (test tauu=8750) 7.36 [id number] 04:31:00 Test Item Value Reference Range Comments D-DIMER QUANTITATIVE (BEAKER) (test vwog=205) 19.80 MG/L FEU <0.50 Intended Use: The D-Dimer Assay can be used to aid in the diagnosis of Deep Vein Thrombosis (DVT) and Pulmonary Embolism Disease (PED).In patients with low pre-test probability, various studies concerning STA Liatest D-dimer test have reported that with a cutoff value of 0.50 MG/L FEU, the Negative Predictive Value (NPV) regarding the exclusion of thrombosis is within 95-100% range.BASIC METABOLIC [id number] 04:28:00 Test Item Value Reference Range Comments SODIUM (BEAKER) (test 139 meq/L 136-145 rxfb=843) POTASSIUM (BEAKER) (test 4.6 meq/L 3.5-5.1 zpew=033) CHLORIDE (BEAKER) (test 104 meq/L 98-107 cwfy=434) CO2 (BEAKER) (test 24 meq/L 22-29 rqtm=355) BLOOD UREA NITROGEN 27 mg/dL 7-21 (BEAKER) (test dqok=205) CREATININE (BEAKER) (test 2.15 mg/dL 0.57-1.25 qqww=612) GLUCOSE RANDOM (BEAKER) 140 mg/dL 70-105 (test oqdo=991) CALCIUM (BEAKER) (test 8.7 mg/dL 8.4-10.2 bgcl=241) EGFR (BEAKER) (test mL/min/1.73 sq m INSUFFICIENT CLINICAL DATA hfxt=0884) TO CALCULATE ESTIMATED GFR. [id number] 04:28:00 Test Item Value Reference Range Comments CREATININE (BEAKER) (test 2.15 mg/dL 0.57-1.25 xbrv=416) EGFR (BEAKER) (test mL/min/1.73 sq m INSUFFICIENT CLINICAL DATA vgnl=1087) TO CALCULATE ESTIMATED GFR. RAD, CHEST, 1 VIEW, NON [id number] 04:28:00Reason for exam:->pneumonia ecmoShould this be performed at the bedside?->YesFINAL REPORT EXAMINATION: AP PORTABLE CHEST RADIOGRAPH CLINICAL INDICATION: Pneumonia IMPRESSION: Compared with 12/28/2017 Support tube and catheter positions are unchanged. The left-sided pleural effusion and adjacent left lung opacities are stable. Curvilinear and patchy opacities in the right lung are also unchanged. No evidence of new lung consolidation, pulmonary edema or pneumothorax. Cardiomediastinal contours are unchanged. No evidence of a pneumothorax. In summary, nosignificant interval change. Signed: Milind Laguerre MDReport Verified Date/Time: 12/29/2017 04:28:49 Reading Location: [address] Reading Room [id number] 04:25:00 Test Item Value Reference Range Comments PHOSPHORUS (BEAKER) (test pewz=662) 4.8 mg/dL 2.3-4.7 [id number] 04:25:00 Test Item Value Reference Range Comments MAGNESIUM (BEAKER) (test yojt=955) 2.3 mg/dL 1.6-2.6 [id number] 04:25:00 Test Item Value Reference Range Comments BLOOD UREA NITROGEN (BEAKER) (test vwpl=520) 27 mg/dL 7- [id number] 04:25:00 Test Item Value Reference Range Comments SODIUM (BEAKER) (test jllf=890) 139 meq/L 136-145 POTASSIUM (BEAKER) (test rbcq=237) 4.6 meq/L 3.5-5.1 CHLORIDE (BEAKER) (test bqky=537) 104 meq/L 98-107 CO2 (BEAKER) (test tdmz=053) 24 meq/L 22-29 HEPATIC FUNCTION [id number] 04:25:00 Test Item Value Reference Range Comments TOTAL PROTEIN (BEAKER) (test egqp=574) 4.6 gm/dL 6.0-8.3 ALBUMIN (BEAKER) (test awnp=7287) 2.2 g/dL 3.5-5.0 BILIRUBIN TOTAL (BEAKER) (test oaci=909) 0.5 mg/dL 0.2-1.2 BILIRUBIN DIRECT (BEAKER) (test fcdz=501) 0.4 mg/dL 0.1-0.5 ALKALINE PHOSPHATASE (BEAKER) (test igmq=226) 60 U/L 40-150 AST (SGOT) (BEAKER) (test vmlg=533) 66 U/L 5-34 ALT (SGPT) (BEAKER) (test fldp=757) 23 U/L 6-55 [id number] 04:25:00 Test Item Value Reference Range Comments GLUCOSE RANDOM (BEAKER) (test vyya=544) 140 mg/dL 70-105 LACTATE DEHYDROGENASE (LDH)2017-12-29 04:25:00 Test Item Value Reference Range Comments LACTATE DEHYDROGENASE (BEAKER) (test cmhw=735) 354 U/L 125-220 LACTIC ACID, ARTERIAL, WHOLE [id number] 04:22:00 Test Item Value Reference Range Comments LACTATE BLOOD ARTERIAL (2) (BEAKER) (test 1.4 mmol/L 0.5-2.2 lekp=5312) Effective 11/12/2015: Units/Reference Range ChangeNew: 0.5-2.2 mmol/L Previous: 5 -20 mg/dLPROTHROMBIN [id number] 04:21:00 Test Item Value Reference Range Comments PROTIME (BEAKER) (test vnur=587) 15.7 seconds 11.7-14.7 INR (BEAKER) (test cgvr=234) 1.3 <=5.9 RECOMMENDED COUMADIN/WARFARIN INR THERAPY RANGESSTANDARD DOSE: 2.0 - 3.0 Includes: PROPHYLAXIS forvenous thrombosis, systemic embolization; TREATMENT for venous thrombosis and/or pulmonary embolus.HIGH RISK: Target INR is 2.5-3.5 for patients with mechanical heart valves.[id number] 04:21:00 Test Item Value Reference Range Comments FIBRINOGEN LEVEL (BEAKER) (test oeip=064) 594 mg/dl 225-434 BLOOD GAS, [id number] 03:37:00 Test Item Value Reference Range Comments PH ARTERIAL (BEAKER) (test zsnj=593) 7.40 7.35-7.45 PCO2 ARTERIAL (BEAKER) (test jprm=940) 43 mmHg 35-45 PO2 ARTERIAL (BEAKER) (test ekcq=253) 485 mmHg 80-90 O2 SATURATION ARTERIAL (BEAKER) (test zisu=567) 99.9 % 96.0-97.0 HCO3 ARTERIAL (BEAKER) (test zhgm=482) 26 mmol/L 21-29 BASE EXCESS ARTERIAL (BEAKER) (test zenk=846) 0.8 mmol/L -2.0-3.0 PATIENT TEMPERATURE (BEAKER) (test jfcg=9295) 36.4 C FIO2 (BEAKER) (test tmof=6338) 100.0 % THROMBOELASTOGRAPH (TEG)2017-12-29 02:05:00 Test Item Value Reference Range Comments TEG ACTIVATED CLOTTING TIME (BEAKER) (test 63.5 minutes 4.0-7.0 vpri=3073) TEG FIBRINOGEN ACTIVITY (BEAKER) (test 2.2 degrees 61.0-73.0 kdzx=1295) TEG PLT. AGGREGATION (BEAKER) (test hbee=0328) 5.6 MM 55.0-65.0 TEG FIBRINOLYSIS (BEAKER) (test kkrk=7791) 0.0 % 0.0-5.0 TGH ACTIVATED CLOTTING TIME (BEAKER) (test 7.8 minutes 4.0-7.0 npey=4572) TGH FIBRINOGEN ACTIVITY (BEAKER) (test 66.9 degrees 61.0-73.0 xbpz=5014) T[facility] PLT. AGGREGATION (BEAKER) (test tvtt=7001) 59.6 MM 55.0-65.0 TGH FIBRINOLYSIS (BEAKER) (test daut=4316) 0.0 % 0.0-5.0 [id number] 00:59:00 Test Item Value Reference Range Comments D-DIMER QUANTITATIVE (BEAKER) (test sojy=466) > MG/L FEU <0.50 Intended Use: The D-Dimer Assay can be used to aid in the diagnosis of Deep Vein Thrombosis (DVT) and Pulmonary Embolism Disease (PED).In patients with low pre-test probability, various studies concerning STA Liatest D-dimer test have reported that with a cutoff value of 0.50 MG/L FEU, the Negative Predictive Value (NPV) regarding the exclusion of thrombosis is within 95-100% range.[id number] 00:41:00 Test Item Value Reference Range Comments FIBRINOGEN LEVEL (BEAKER) (test adju=972) 573 mg/dl 225-434 PROTHROMBIN [id number] 00:36:00 Test Item Value Reference Range Comments PROTIME (BEAKER) (test sjra=606) 16.7 seconds 11.7-14.7 INR (BEAKER) (test rplx=798) 1.4 <=5.9 RECOMMENDED COUMADIN/WARFARIN INR THERAPY RANGESSTANDARD DOSE: 2.0 - 3.0 Includes: PROPHYLAXIS forvenous thrombosis, systemic embolization; TREATMENT for venous thrombosis and/or pulmonary embolus.HIGH RISK: Target INR is 2.5-3.5 for patients with mechanical heart valves.[id number] 00:33:00 Test Item Value Reference Range Comments POTASSIUM (BEAKER) (test yzae=940) 4.2 meq/L 3.5-5.1 CALCIUM, [id number] 00:17:00 Test Item Value Reference Range Comments CALCIUM IONIZED (BEAKER) (test uinl=671) 1.08 mmol/L 1.12-1.27 PH, BLOOD (BEAKER) (test okyn=9164) 7.39 BLOOD GAS, [id number] 00:17:00 Test Item Value Reference Range Comments PH ARTERIAL (BEAKER) (test duau=515) 7.40 7.35-7.45 PCO2 ARTERIAL (BEAKER) (test vxvk=553) 43 mmHg 35-45 PO2 ARTERIAL (BEAKER) (test ravj=759) 59 mmHg 80-90 O2 SATURATION ARTERIAL (BEAKER) (test zuwc=790) 91.2 % 96.0-97.0 HCO3 ARTERIAL (BEAKER) (test peha=471) 26 mmol/L 21-29 BASE EXCESS ARTERIAL (BEAKER) (test wjix=654) 1.0 mmol/L -2.0-3.0 PATIENT TEMPERATURE (BEAKER) (test krsm=6422) 36.4 C FIO2 (BEAKER) (test rcoh=1341) 100.0 % POCT-GLUCOSE [id number] 00:11:00 Test Item Value Reference Range Comments POC-GLUCOSE METER (BEAKER) 115 mg/dL 70-110 TESTED AT [address] (test mnej=4809) [facility] [address] POCT-GLUCOSE [id number] 00:11:00 Test Item Value Reference Range Comments POC-GLUCOSE METER (BEAKER) 115 mg/dL 70-110 TESTED AT [address] (test didi=3544) [facility] [address] POCT-GLUCOSE [id number] 00:11:00 Test Item Value Reference Range Comments POC-GLUCOSE METER (BEAKER) 113 mg/dL 70-110 TESTED AT [address] (test xqiy=2889) [facility] [address] [id number] 20:54:00 Test Item Value Reference Range Comments PARTIAL THROMBOPLASTIN TIME (BEAKER) (test 37.5 seconds 22.5-36.0 ocpb=746) [id number] 20:53:00 Test Item Value Reference Range Comments POTASSIUM (BEAKER) (test xbko=529) 4.5 meq/L 3.5-5.1 [id number] 20:53:00 Test Item Value Reference Range Comments MAGNESIUM (BEAKER) (test ftou=872) 2.3 mg/dL 1.6-2.6 [id number] 20:53:00 Test Item Value Reference Range Comments PHOSPHORUS (BEAKER) (test abyd=378) 3.9 mg/dL 2.3-4.7 [id number] 20:53:00 Test Item Value Reference Range Comments SODIUM (BEAKER) (test qcuq=944) 136 meq/L 136-145 LACTIC ACID, ARTERIAL, WHOLE [id number] 20:51:00 Test Item Value Reference Range Comments LACTATE BLOOD ARTERIAL (2) (BEAKER) (test 1.9 mmol/L 0.5-2.2 ysbq=4924) Effective 11/12/2015: Units/Reference Range ChangeNew: 0.5-2.2 mmol/L Previous: 5 -20 mg/dLBLOOD GAS, [id number] 20:34:00 Test Item Value Reference Range Comments PH ARTERIAL (BEAKER) (test uyow=912) 7.42 7.35-7.45 PCO2 ARTERIAL (BEAKER) (test oxig=010) 40 mmHg 35-45 PO2 ARTERIAL (BEAKER) (test itwk=798) 61 mmHg 80-90 O2 SATURATION ARTERIAL (BEAKER) (test twfb=855) 92.6 % 96.0-97.0 HCO3 ARTERIAL (BEAKER) (test xvbg=688) 25 mmol/L 21-29 BASE EXCESS ARTERIAL (BEAKER) (test lxcw=678) 0.6 mmol/L -2.0-3.0 PATIENT TEMPERATURE (BEAKER) (test vpbh=0830) 36.3 C FIO2 (BEAKER) (test rsmd=8739) 100.0 % CBC W/PLT COUNT & AUTO [id number] 19:44:00 Test Item Value Reference Range Comments WHITE BLOOD CELL COUNT (BEAKER) (test niaf=667) 15.1 K/ L 3.5-10.5 RED BLOOD CELL COUNT (BEAKER) (test imje=736) 3.38 M/ L 3.93-5.22 HEMOGLOBIN (BEAKER) (test inog=971) 10.2 GM/DL 11.2-15.7 HEMATOCRIT (BEAKER) (test jxim=665) 31.5 % 34.1-44.9 MEAN CORPUSCULAR VOLUME (BEAKER) (test rpdn=306) 93.2 fL 79.4-94.8 MEAN CORPUSCULAR HEMOGLOBIN (BEAKER) (test 30.2 pg 25.6-32.2 uzrv=752) MEAN CORPUSCULAR HEMOGLOBIN CONC (BEAKER) (test 32.4 GM/DL 32.2-35.5 ppul=956) RED CELL DISTRIBUTION WIDTH (BEAKER) (test 15.5 % 11.7-14.4 bhjh=682) PLATELET COUNT (BEAKER) (test noff=011) 108 K/CU MM 150-450 MEAN PLATELET VOLUME (BEAKER) (test hkab=641) 10.5 fL 9.4-12.3 NUCLEATED RED BLOOD CELLS (BEAKER) (test 0 /100 WBC 0-0 klwk=547) (CELLAVISION MANUAL DIFF)2017-12-28 19:44:00 Test Item Value Reference Range Comments NEUTROPHILS - REL (CELLAVISION)(BEAKER) (test 21 % nsex=3578) LYMPHOCYTES - REL (CELLAVISION)(BEAKER) (test 6 % vjdy=0422) MONOCYTES - REL (CELLAVISION)(BEAKER) (test 6 % sahr=9783) EOSINOPHILS - REL (CELLAVISION)(BEAKER) (test 4 % szzh=0426) METAMYELOCYTES - REL (CELLAVISION)(BEAKER) (test 34 % 0-0 vuqb=5388) MYELOCYTES - REL (CELLAVISION)(BEAKER) (test 5 % 0-0 vflq=1072) BANDS - REL (CELLAVISION)(BEAKER) (test 23 % 0-10 fzcm=0688) NEUTROPHILS - ABS (CELLAVISION)(BEAKER) (test 3.17 K/ul 1.56-6.13 utjq=9608) LYMPHOCYTES - ABS (CELLAVISION)(BEAKER) (test 0.91 K/ul 1.18-3.74 mogk=7133) MONOCYTES - ABS (CELLAVISION)(BEAKER) (test 0.91 K/uL 0.24-0.36 nkuv=9044) EOSINOPHILS - ABS (CELLAVISION)(BEAKER) (test 0.60 K/uL 0.04-0.36 xpbn=3815) METAMYELOCYTES - ABS (CELLAVISION)(BEAKER) (test 5.13 K/uL 0.00-0.00 iwqd=9212) MYELOCYTES-ABS (CELLAVISION)(BEAKER) (test 0.76 K/uL 0.00-0.00 unnf=5664) BANDS - ABS (CELLAVISION)(BEAKER) (test 3.47 K/uL 0.00-0.80 lytj=2859) TOTAL COUNTED (BEAKER) (test dtoz=7614) 100 MANUAL NRBC PER 100 CELLS (BEAKER) (test 3 /100 WBC 0-0 tcgx=3243) GIANT PLATELETS (BEAKER) (test vlgh=169) Present TOXIC GRANULATION (BEAKER) (test yrom=871) Present VACUOLATED NEUTROPHILS (BEAKER) (test mfxm=045) Present POLYCHROMATOPHILLIC RBCS(BEAKER) (test uqvy=376) 1+ few ANISOCYTOSIS (BEAKER) (test lkbv=873) 1+ few POIKILOCYTES (BEAKER) (test jbze=316) 1+ few OVALOCYTES (BEAKER) (test ewym=112) 1+ few TEAR DROP CELLS (BEAKER) (test zpkf=706) 1+ few ARTIFACT (CELLAVISION)(BEAKER) (test ujgk=3897) Present PLATELET CONCENTRATION (CELLAVISION)(BEAKER) Decreased (test vrxy=5008) Received comment: User comments: Slide comments:BLOOD GAS, [id number] 18 :05:00 Test Item Value Reference Range Comments PH ARTERIAL (BEAKER) (test gxjt=909) 7.42 7.35-7.45 PCO2 ARTERIAL (BEAKER) (test zbgo=303) 38 mmHg 35-45 PO2 ARTERIAL (BEAKER) (test gyvd=233) 59 mmHg 80-90 O2 SATURATION ARTERIAL (BEAKER) (test xwei=574) 92.0 % 96.0-97.0 HCO3 ARTERIAL (BEAKER) (test vyxp=195) 25 mmol/L 21-29 BASE EXCESS ARTERIAL (BEAKER) (test aaia=896) 0.0 mmol/L -2.0-3.0 PATIENT TEMPERATURE (BEAKER) (test eedv=0466) 36.4 C FIO2 (BEAKER) (test vydt=3110) 100.0 % GLUCOSE-STAT [id number] 18:04:00 Test Item Value Reference Range Comments GLUCOSE RANDOM (BEAKER) (test odkf=567) 104 mg/dL 70-110 ANTITHROMBIN [id number] 17:52:00 Test Item Value Reference Range Comments ANTITHROMBIN III ACTIVITY (BEAKER) (test jfis=480) 34.0 % 80.0-120.0 Prior to initiating [id number] 17:21:00 Test Item Value Reference Range Comments PARTIAL THROMBOPLASTIN TIME (BEAKER) (test 143.8 seconds 22.5-36.0 uhht=929) T4, [id number] 17:08:00 Test Item Value Reference Range Comments FREE T4 (BEAKER) (test pftx=358) 0.62 ng/dL 0.70-1.48 GLUCOSE-STAT [id number] 17:05:00 Test Item Value Reference Range Comments GLUCOSE RANDOM (BEAKER) (test lwix=666) 110 mg/dL 70-110 BLOOD GAS, [id number] 17:05:00 Test Item Value Reference Range Comments PH ARTERIAL (BEAKER) (test iwlo=004) 7.41 7.35-7.45 PCO2 ARTERIAL (BEAKER) (test okix=423) 38 mmHg 35-45 PO2 ARTERIAL (BEAKER) (test wzws=157) 64 mmHg 80-90 O2 SATURATION ARTERIAL (BEAKER) (test ambt=342) 92.9 % 96.0-97.0 HCO3 ARTERIAL (BEAKER) (test nxgj=585) 24 mmol/L 21-29 BASE EXCESS ARTERIAL (BEAKER) (test qhbk=092) -1.0 mmol/L -2.0-3.0 PATIENT TEMPERATURE (BEAKER) (test tjyb=1807) 36.8 C FIO2 (BEAKER) (test vkqm=1250) 100.0 % [id number] 16:47:00 Test Item Value Reference Range Comments PHOSPHORUS (BEAKER) (test dlby=976) 4.2 mg/dL 2.3-4.7 [id number] 16:47:00 Test Item Value Reference Range Comments MAGNESIUM (BEAKER) (test zjqy=441) 1.9 mg/dL 1.6-2.6 HEPATIC FUNCTION [id number] 16:47:00 Test Item Value Reference Range Comments TOTAL PROTEIN (BEAKER) (test rljz=902) 4.5 gm/dL 6.0-8.3 ALBUMIN (BEAKER) (test prsy=4266) 2.1 g/dL 3.5-5.0 BILIRUBIN TOTAL (BEAKER) (test jsmr=792) 0.6 mg/dL 0.2-1.2 BILIRUBIN DIRECT (BEAKER) (test hfnt=894) 0.4 mg/dL 0.1-0.5 ALKALINE PHOSPHATASE (BEAKER) (test fhsp=441) 53 U/L 40-150 AST (SGOT) (BEAKER) (test qxie=469) 62 U/L 5-34 ALT (SGPT) (BEAKER) (test dusx=889) 21 U/L 6-55 LACTATE DEHYDROGENASE (LDH)2017-12-28 16:47:00 Test Item Value Reference Range Comments LACTATE DEHYDROGENASE (BEAKER) (test nlqr=038) 393 U/L 125-220 [id number] 16:40:00 Test Item Value Reference Range Comments D-DIMER QUANTITATIVE (BEAKER) (test ngya=187) > MG/L FEU <0.50 Intended Use: The D-Dimer Assay can be used to aid in the diagnosis of Deep Vein Thrombosis (DVT) and Pulmonary Embolism Disease (PED).In patients with low pre-test probability, various studies concerning STA Liatest D-dimer test have reported that with a cutoff value of 0.50 MG/L FEU, the Negative Predictive Value (NPV) regarding the exclusion of thrombosis is within 95-100% range.TSH/ FREE T4 IF [id number] 16:21:00 Test Item Value Reference Range Comments THYROID STIMULATING HORMONE (BEAKER) (test 0.36 uIU/mL 0.35-4.94 sbgt=168) GLUCOSE-STAT [id number] 16:13:00 Test Item Value Reference Range Comments GLUCOSE RANDOM (BEAKER) (test tgux=336) 109 mg/dL 70-110 POTASSIUM-STAT [id number] 16:13:00 Test Item Value Reference Range Comments POTASSIUM (BEAKER) (test dfms=767) 4.3 meq/L 3.6-5.5 BLOOD GAS, [id number] 16:13:00 Test Item Value Reference Range Comments PH ARTERIAL (BEAKER) (test oufc=950) 7.47 7.35-7.45 PCO2 ARTERIAL (BEAKER) (test dgoq=676) 28 mmHg 35-45 PO2 ARTERIAL (BEAKER) (test xtru=579) 136 mmHg 80-90 O2 SATURATION ARTERIAL (BEAKER) (test ipht=124) 99.0 % 96.0-97.0 HCO3 ARTERIAL (BEAKER) (test ogjn=406) 20 mmol/L 21-29 BASE EXCESS ARTERIAL (BEAKER) (test tbql=757) -3.3 mmol/L -2.0-3.0 PATIENT TEMPERATURE (BEAKER) (test eldw=7275) 36.1 C FIO2 (BEAKER) (test eaqp=6027) 100.0 % HGB/HCT (H&H) - STAT [id number] 16:13:00 Test Item Value Reference Range Comments HEMOGLOBIN (BEAKER) (test raww=885) 10.8 g/dL 12.0-15.0 HEMATOCRIT (BEAKER) (test maas=864) 32.0 % 36.0-45.0 THROMBOELASTOGRAPH (TEG)2017-12-28 16:06:00 Test Item Value Reference Range Comments TEG ACTIVATED CLOTTING TIME (BEAKER) minutes 4.0-7.0 No clot detected (test yfix=2455) TGH ACTIVATED CLOTTING TIME (BEAKER) 10.0 minutes 4.0-7.0 (test thrm=5688) T[facility] FIBRINOGEN ACTIVITY (BEAKER) (test 61.1 degrees 61.0-73.0 civq=0267) [facility] PLT. AGGREGATION (BEAKER) (test 63.6 MM 55.0-65.0 iaht=5198) [facility] FIBRINOLYSIS (BEAKER) (test 0.0 % 0.0-5.0 fzrr=4878) RAD, ABDOMEN/KUB, 1 VIEW [id number] 15:50:00KUBReason for exam:->placement of cannulaFINAL REPORT Abdomen one view INDICATION: Placement of cannula. COMPARISON: None available IMPRESSION: A presumed ECMO cannula overlies the right abdomen and extends into the lower thorax with tip off image. A left femoral approach line or sheath is present. The bowel gas pattern is nonspecific. Free air and fluid levels are not well assessed on a supine study. There is possible contrast residue in right-sided bowel loops. There are vascular calcifications. No acute osseous abnormality is evident. Signed: Flaca Reece MDReport Verified Date/Time: 12/28/2017 15:50:53 Reading Location: [facility] [id number] Consult Reading Room RAD, CHEST, 1 VIEW, NON [id number] 15:45:00Reason for exam:->intubatedFINAL REPORT AP chest HISTORY: Intubation COMPARISON: 12/28/2017 IMPRESSION: Endotracheal tube present in satisfactory position. Vascular cannula projects over the right heart. Hypoinflation. Interstitial edema and moderate left effusion, grossly unchanged. No pneumothorax. Signed: Shorty Cottrell MDReport Verified Date/Time: 12/28/2017 15:45:04 Reading Location: [facility] Reading Room 03: 45 [id number] 15:38:00 Test Item Value Reference Range Comments PARTIAL THROMBOPLASTIN TIME (BEAKER) (test > seconds 22.5-36.0 gqsx=928) BASIC METABOLIC [id number] 15:37:00 Test Item Value Reference Range Comments SODIUM (BEAKER) (test 135 meq/L 136-145 qrii=561) POTASSIUM (BEAKER) (test 4.7 meq/L 3.5-5.1 ovni=247) CHLORIDE (BEAKER) (test 102 meq/L 98-107 ghtj=855) CO2 (BEAKER) (test 19 meq/L 22-29 dvbc=484) BLOOD UREA NITROGEN 32 mg/dL 7-21 (BEAKER) (test cqyh=322) CREATININE (BEAKER) (test 2.86 mg/dL 0.57-1.25 gucn=358) GLUCOSE RANDOM (BEAKER) 111 mg/dL 70-105 (test uzag=880) CALCIUM (BEAKER) (test 7.8 mg/dL 8.4-10.2 vusz=029) EGFR (BEAKER) (test mL/min/1.73 sq m INSUFFICIENT CLINICAL DATA yxgk=6507) TO CALCULATE ESTIMATED GFR. [id number] 15:18:00 Test Item Value Reference Range Comments POTASSIUM (BEAKER) (test odfj=234) 4.7 meq/L 3.5-5.1 LACTIC ACID, ARTERIAL, WHOLE [id number] 15:17:00 Test Item Value Reference Range Comments LACTATE BLOOD ARTERIAL (2) 2.7 mmol/L 0.5-2.2 Specimen slightly hemolyzed (BEAKER) (test qvbm=9609) Effective 11/12/2015: Units/Reference Range ChangeNew: 0.5-2.2 mmol/L Previous: 5 -20 mg/dLPROTHROMBIN [id number] 15:06:00 Test Item Value Reference Range Comments PROTIME (BEAKER) (test clnj=796) 18.5 seconds 11.7-14.7 INR (BEAKER) (test sgoi=573) 1.5 <=5.9 RECOMMENDED COUMADIN/WARFARIN INR THERAPY RANGESSTANDARD DOSE: 2.0 - 3.0 Includes: PROPHYLAXIS forvenous thrombosis, systemic embolization; TREATMENT for venous thrombosis and/or pulmonary embolus.HIGH RISK: Target INR is 2.5-3.5 for patients with mechanical heart valves.Prior to initiating heparinOXYGEN SATURATION, [id number] 14:56:00 Test Item Value Reference Range Comments O2 SATURATION (MEASURED) (BEAKER) (test iaqu=6386) 61.3 % POTASSIUM-STAT [id number] 14:50:00 Test Item Value Reference Range Comments POTASSIUM (BEAKER) (test znad=246) 4.6 meq/L 3.6-5.5 BLOOD GAS, [id number] 14:50:00 Test Item Value Reference Range Comments PH ARTERIAL (BEAKER) (test drpu=519) 7.45 7.35-7.45 PCO2 ARTERIAL (BEAKER) (test czjl=204) 31 mmHg 35-45 PO2 ARTERIAL (BEAKER) (test oxvf=107) 51 mmHg 80-90 O2 SATURATION ARTERIAL (BEAKER) (test xxuy=407) 90.7 % 96.0-97.0 HCO3 ARTERIAL (BEAKER) (test zzyc=561) 21 mmol/L 21-29 BASE EXCESS ARTERIAL (BEAKER) (test khdu=630) -2.4 mmol/L -2.0-3.0 PATIENT TEMPERATURE (BEAKER) (test xdjx=0023) 35.4 C FIO2 (BEAKER) (test sufe=8338) 100.0 % SODIUM NA-STAT [id number] 14:50:00 Test Item Value Reference Range Comments SODIUM (BEAKER) (test vhkj=321) 133 meq/L 135-148 GLUCOSE-STAT [id number] 14:50:00 Test Item Value Reference Range Comments GLUCOSE RANDOM (BEAKER) (test wmua=706) 112 mg/dL 70-110 HGB/HCT (H&H) - STAT [id number] 14:50:00 Test Item Value Reference Range Comments HEMOGLOBIN (BEAKER) (test appw=088) 10.7 g/dL 12.0-15.0 HEMATOCRIT (BEAKER) (test iwvb=960) 31.0 % 36.0-45.0 RESPIRATORY PANEL [id number] 14:30:00 Test Item Value Reference Range Comments HUMAN METAPNEUMOVIRUS (BEAKER) (test Not detected Not detected, Inconclusive xyey=9040) RHINOVIRUS (BEAKER) (test rjoc=0245) Not detected Not detected, Inconclusive INFLUENZA A (BEAKER) (test Not detected Not detected, Inconclusive nqou=1984) INFLUENZA A SUBTYPE H1 (BEAKER) Not detected Not detected, Inconclusive (test aphv=8974) INFLUENZA A SUBTYPE H3 (BEAKER) Not detected Not detected, Inconclusive (test zyjp=1593) INFLUENZA A SUBTYPE H1-2009 (BEAKER) Not detected Not detected, Inconclusive (test omfr=9543) INFLUENZA B (BEAKER) (test Not detected Not detected, Inconclusive lwwt=6231) RESPIRATORY SYNCYTIAL VIRUS (BEAKER) Not detected Not detected, Inconclusive (test opdz=1749) PARAINFLUENZA VIRUS 1 (BEAKER) (test Not detected Not detected, Inconclusive taha=2625) PARAINFLUENZA VIRUS 2 (BEAKER) (test Not detected Not detected, Inconclusive uqmd=5414) PARAINFLUENZA VIRUS 3 (BEAKER) (test Not detected Not detected, Inconclusive fsme=2347) PARAINFLUENZA VIRUS 4 (BEAKER) (test Not detected Not detected, Inconclusive wxua=4418) ADENOVIRUS (BEAKER) (test pnye=0572) Not detected Not detected, Inconclusive CORONAVIRUS 229E (BEAKER) (test Not detected Not detected, Inconclusive xgbb=1513) CORONAVIRUS HKU1 (BEAKER) (test Not detected Not detected, Inconclusive nxin=3331) CORONAVIRUS NL63 (BEAKER) (test Not detected Not detected, Inconclusive dgxd=9161) CORONAVIRUS OC43 (BEAKER) (test Not detected Not detected, Inconclusive buje=3064) BORDETELLA PERTUSSIS (BEAKER) (test Not detected Not detected, Inconclusive jnab=8866) CHLAMYDOPHILA PNEUMONIAE (BEAKER) Not detected Not detected, Inconclusive (test tykn=9327) MYCOPLASMA PNEUMONIAE (BEAKER) (test Not detected Not detected, Inconclusive ajoh=8125) [id number] 13:17:00 Test Item Value Reference Range Comments ACTIVATED CLOTTING TIME 230 sec TESTED AT [facility] [address] (BEAKER) (test eurq=538) [facility] [address] T4, [id number] 12:18:00 Test Item Value Reference Range Comments FREE T4 (BEAKER) (test vnrl=952) 0.44 ng/dL 0.70-1.48 STREP PNEUMONIAE [id number] 12:03:00 Test Item Value Reference Range Comments STREP PNEUMONIAE ANTIGEN Presumptive negative for Presumptive negative for (BEAKER) (test pneumococcal pneumonia - pneumococcal pneumonia - idhh=6412) see comment see commen Presumptive negative for pneumococcal pneumonia, suggesting no current or recent pneumococcal infection. Infection due to S. pneumoniae cannot be ruled out since the antigen present in the sample may be below the detection limit of the test.LEGIONELLA ANTIGEN, [id number] 12:02:00 Test Item Value Reference Range Comments L. PNEUMOPHILA SEROGP 1 Negative - see Negative for L. UR AG (BEAKER) (test comment pneumophila serogroup 1 tmxs=2055) antigen, suggesting no recent or current infection with this serogroup. Legionellosis cannot be ruled out since other serogroups and species may cause disease. URINALYSIS W/ REFLEX URINE [id number] 11:56:00 Test Item Value Reference Range Comments COLOR (BEAKER) (test xbiw=081) Yellow CLARITY (BEAKER) (test auwg=562) Hazy SPECIFIC GRAVITY UA (BEAKER) (test qugh=700) 1.019 1.001-1.035 PH UA (BEAKER) (test cinm=602) 6.0 5.0-8.0 PROTEIN UA (BEAKER) (test japb=818) 200 mg/dL Negative GLUCOSE UA (BEAKER) (test gtxb=251) 70 mg/dL Negative KETONES UA (BEAKER) (test uask=038) Negative Negative BILIRUBIN UA (BEAKER) (test yvgv=511) Negative Negative BLOOD UA (BEAKER) (test gyqn=423) Large Negative NITRITE UA (BEAKER) (test pkxt=432) Negative Negative LEUKOCYTE ESTERASE UA (BEAKER) (test vjpx=331) Small Negative UROBILINOGEN UA (BEAKER) (test gsdl=871) 0.2 mg/dL 0.2-1.0 RBC UA (BEAKER) (test psqk=933) 0 /HPF WBC UA (BEAKER) (test lzsk=499) 10 /HPF BACTERIA (BEAKER) (test zcqf=131) Occasional MUCUS (BEAKER) (test fqfz=4694) Rare SQUAMOUS EPITHELIAL (BEAKER) (test joki=836) 1 /HPF GRANULAR CASTS (BEAKER) (test qppu=594) 5 /LPF AMORPHOUS CRYSTALS (BEAKER) (test tsnu=4657) Rare SOURCE(BEAKER) (test apxb=8466) LACTIC ACID, ARTERIAL, WHOLE [id number] 11:50:00 Test Item Value Reference Range Comments LACTATE BLOOD ARTERIAL (2) 3.0 mmol/L 0.5-2.2 Specimen slightly hemolyzed (BEAKER) (test xssp=8319) Effective 11/12/2015: Units/Reference Range ChangeNew: 0.5-2.2 mmol/L Previous: 5 -20 mg/dLRAD, CHEST, 1 VIEW, NON [id number] 11:30:00Reason for exam:-> LIJ CVC Placement Should this be performed at the bedside?->YesFINAL REPORT Chest one view INDICATION: Left IJ CVC placement. COMPARISON: 12/28/2017 at 0121 hours IMPRESSION: A new left jugular line extends to the SVC. The remaining support devices are stable accounting for positional differences. No pneumothorax is seen. Dependent left pleural effusion has likely redistributed. Left retrocardiac consolidation or atelectasis is stable. Pulmonary edema is similar in appearance. The cardiomediastinal contours are partially obscured but stable. Signed: Flaca Reece MDReport Verified Date/Time: 12/28/2017 11:30:56 Reading Location: [facility] Radiology Reading Room Electronically signed by: FLACA REECE M.D. on 2017 11:30 AMBLOOD GAS, [id number] 11:16:00 Test Item Value Reference Range Comments PH ARTERIAL (BEAKER) (test abaw=663) 7.32 7.35-7.45 PCO2 ARTERIAL (BEAKER) (test yhhx=547) 47 mmHg 35-45 PO2 ARTERIAL (BEAKER) (test gizt=902) 49 mmHg 80-90 O2 SATURATION ARTERIAL (BEAKER) (test yttl=916) 82.7 % 96.0-97.0 HCO3 ARTERIAL (BEAKER) (test xwge=038) 24 mmol/L 21-29 BASE EXCESS ARTERIAL (BEAKER) (test vswl=919) -2.9 mmol/L -2.0-3.0 PATIENT TEMPERATURE (BEAKER) (test lwtt=0881) 36.4 C FIO2 (BEAKER) (test cnzp=4051) 80.0 % GLUCOSE-STAT [id number] 11:16:00 Test Item Value Reference Range Comments GLUCOSE RANDOM (BEAKER) (test ccwm=099) 113 mg/dL 70-110 POTASSIUM-STAT [id number] 11:15:00 Test Item Value Reference Range Comments POTASSIUM (BEAKER) (test xhwb=347) 4.4 meq/L 3.6-5.5 HGB/HCT (H&H) - STAT [id number] 11:15:00 Test Item Value Reference Range Comments HEMOGLOBIN (BEAKER) (test guks=232) 12.1 g/dL 12.0-15.0 HEMATOCRIT (BEAKER) (test sect=303) 36.0 % 36.0-45.0 OXYGEN SATURATION, [id number] 11:13:00 Test Item Value Reference Range Comments O2 SATURATION (MEASURED) (BEAKER) (test oxqm=6923) 64.8 % HEMOGLOBIN [id number] 10:02:00 Test Item Value Reference Range Comments HEMOGLOBIN A1C (BEAKER) (test fjbc=073) 6.4 % 4.3-6.1 [id number] 09:22:00 Test Item Value Reference Range Comments POTASSIUM (BEAKER) (test uzpn=961) 4.7 meq/L 3.5-5.1 [id number] 09:22:00 Test Item Value Reference Range Comments MAGNESIUM (BEAKER) (test hnyl=160) 1.6 mg/dL 1.6-2.6 [id number] 09:22:00 Test Item Value Reference Range Comments PHOSPHORUS (BEAKER) (test sarh=264) 5.3 mg/dL 2.3-4.7 [id number] 09:22:00 Test Item Value Reference Range Comments SODIUM (BEAKER) (test uxgl=745) 136 meq/L 136-145 [id number] 09:01:00 Test Item Value Reference Range Comments PARTIAL THROMBOPLASTIN TIME (BEAKER) (test 34.4 seconds 22.5-36.0 arjh=175) POCT-GLUCOSE [id number] 08:41:00 Test Item Value Reference Range Comments POC-GLUCOSE METER (BEAKER) 109 mg/dL 70-110 TESTED AT [facility] [address] [facility] (test bvbp=0565) [facility] [address] BLOOD GAS, [id number] 08:36:00 Test Item Value Reference Range Comments PH ARTERIAL (BEAKER) (test afpg=392) 7.40 7.35-7.45 PCO2 ARTERIAL (BEAKER) (test hfnf=337) 36 mmHg 35-45 PO2 ARTERIAL (BEAKER) (test mnyt=572) 84 mmHg 80-90 O2 SATURATION ARTERIAL (BEAKER) (test sctz=057) 96.7 % 96.0-97.0 HCO3 ARTERIAL (BEAKER) (test bbed=154) 22 mmol/L 21-29 BASE EXCESS ARTERIAL (BEAKER) (test skiq=444) -2.6 mmol/L -2.0-3.0 PATIENT TEMPERATURE (BEAKER) (test rfxg=9380) 36.1 C FIO2 (BEAKER) (test fnbo=4995) 50.0 % CALCIUM, [id number] 08:35:00 Test Item Value Reference Range Comments CALCIUM IONIZED (BEAKER) (test itqh=199) 1.19 mmol/L 1.12-1.27 PH, BLOOD (BEAKER) (test bpiu=3683) 7.38 PH, [id number] 08:34:00 Test Item Value Reference Range Comments PH ARTERIAL (BEAKER) (test exkc=670) 7.40 7.35-7.45 OXYGEN SATURATION, [id number] 08:32:00 Test Item Value Reference Range Comments O2 SATURATION (MEASURED) (BEAKER) (test kzws=4103) 34.6 % TSH/FREE T4 IF [id number] 06:24:00 Test Item Value Reference Range Comments THYROID STIMULATING HORMONE (BEAKER) (test 0.34 uIU/mL 0.35-4.94 rhfe=348) BASIC METABOLIC [id number] 06:04:00 Test Item Value Reference Range Comments SODIUM (BEAKER) (test 135 meq/L 136-145 zdvi=605) POTASSIUM (BEAKER) (test 3.7 meq/L 3.5-5.1 gyxc=451) CHLORIDE (BEAKER) (test 100 meq/L 98-107 acai=500) CO2 (BEAKER) (test 20 meq/L 22-29 eizr=471) BLOOD UREA NITROGEN 37 mg/dL 7-21 (BEAKER) (test padt=138) CREATININE (BEAKER) (test 2.95 mg/dL 0.57-1.25 yvhp=479) GLUCOSE RANDOM (BEAKER) 169 mg/dL 70-105 (test zqhp=443) CALCIUM (BEAKER) (test 8.3 mg/dL 8.4-10.2 tohm=586) EGFR (BEAKER) (test mL/min/1.73 sq m INSUFFICIENT CLINICAL DATA dykx=5660) TO CALCULATE ESTIMATED GFR. BLOOD GAS, [id number] 05:52:00 Test Item Value Reference Range Comments PH ARTERIAL (BEAKER) (test mmxe=752) 7.32 7.35-7.45 PCO2 ARTERIAL (BEAKER) (test kael=966) 44 mmHg 35-45 PO2 ARTERIAL (BEAKER) (test qvau=498) 80 mmHg 80-90 O2 SATURATION ARTERIAL (BEAKER) (test wpfs=193) 95.0 % 96.0-97.0 HCO3 ARTERIAL (BEAKER) (test zrmb=214) 22 mmol/L 21-29 BASE EXCESS ARTERIAL (BEAKER) (test huhp=113) -3.8 mmol/L -2.0-3.0 PATIENT TEMPERATURE (BEAKER) (test ssun=4896) 36.9 C FIO2 (BEAKER) (test xwaf=2317) 90.0 % GLUCOSE-STAT [id number] 05:52:00 Test Item Value Reference Range Comments GLUCOSE RANDOM (BEAKER) (test ibor=418) 159 mg/dL 70-110 CALCIUM, [id number] 05:52:00 Test Item Value Reference Range Comments CALCIUM IONIZED (BEAKER) (test bmiv=870) 1.08 mmol/L 1.12-1.27 PH, BLOOD (BEAKER) (test tjuy=2627) 7.32 BLOOD GAS, [id number] 04:02:00 Test Item Value Reference Range Comments PH ARTERIAL (BEAKER) (test wqxi=204) 7.30 7.35-7.45 PCO2 ARTERIAL (BEAKER) (test rmxr=103) 48 mmHg 35-45 PO2 ARTERIAL (BEAKER) (test mhfo=990) 70 mmHg 80-90 O2 SATURATION ARTERIAL (BEAKER) (test qcpw=293) 92.6 % 96.0-97.0 HCO3 ARTERIAL (BEAKER) (test kpns=965) 23 mmol/L 21-29 BASE EXCESS ARTERIAL (BEAKER) (test muoz=157) -3.5 mmol/L -2.0-3.0 PATIENT TEMPERATURE (BEAKER) (test fice=4727) 36.8 C FIO2 (BEAKER) (test rckx=3259) 90.0 % GLUCOSE-STAT [id number] 04:02:00 Test Item Value Reference Range Comments GLUCOSE RANDOM (BEAKER) (test myly=461) 213 mg/dL 70-110 CALCIUM, [id number] 04:01:00 Test Item Value Reference Range Comments CALCIUM IONIZED (BEAKER) (test hhuv=791) 1.03 mmol/L 1.12-1.27 PH, BLOOD (BEAKER) (test rohu=0855) 7.30 COMPREHENSIVE METABOLIC [id number] 02:46:00 Test Item Value Reference Range Comments TOTAL PROTEIN (BEAKER) 4.8 gm/dL 6.0-8.3 (test hedw=837) ALBUMIN (BEAKER) (test 2.4 g/dL 3.5-5.0 zqkn=7825) ALKALINE PHOSPHATASE 45 U/L 40-150 (BEAKER) (test ypjf=632) BILIRUBIN TOTAL (BEAKER) 0.4 mg/dL 0.2-1.2 (test kwvn=478) SODIUM (BEAKER) (test 134 meq/L 136-145 iijt=639) POTASSIUM (BEAKER) (test 3.7 meq/L 3.5-5.1 upne=047) CHLORIDE (BEAKER) (test 96 meq/L 98-107 whwu=958) CO2 (BEAKER) (test 20 meq/L 22-29 wnac=941) BLOOD UREA NITROGEN 38 mg/dL 7-21 (BEAKER) (test udyl=442) CREATININE (BEAKER) (test 3.49 mg/dL 0.57-1.25 vbqa=823) GLUCOSE RANDOM (BEAKER) 276 mg/dL 70-105 (test llll=358) CALCIUM (BEAKER) (test 8.0 mg/dL 8.4-10.2 ktnb=440) AST (SGOT) (BEAKER) (test 34 U/L 5-34 poqb=731) ALT (SGPT) (BEAKER) (test 14 U/L 6-55 gucl=887) EGFR (BEAKER) (test mL/min/1.73 sq m INSUFFICIENT CLINICAL DATA slhj=6563) TO CALCULATE ESTIMATED GFR. [id number] 02:39:00 Test Item Value Reference Range Comments GLUCOSE RANDOM (BEAKER) (test ccks=691) 276 mg/dL 70-105 LACTATE DEHYDROGENASE (LDH)[id number] 02:39:00 Test Item Value Reference Range Comments LACTATE DEHYDROGENASE (BEAKER) (test wqmy=244) 369 U/L 125-220 HEPATIC FUNCTION [id number] 02:39:00 Test Item Value Reference Range Comments TOTAL PROTEIN (BEAKER) (test jzhj=032) 4.8 gm/dL 6.0-8.3 ALBUMIN (BEAKER) (test prpg=9498) 2.4 g/dL 3.5-5.0 BILIRUBIN TOTAL (BEAKER) (test xedw=611) 0.4 mg/dL 0.2-1.2 BILIRUBIN DIRECT (BEAKER) (test uwaa=191) 0.3 mg/dL 0.1-0.5 ALKALINE PHOSPHATASE (BEAKER) (test hmtl=819) 45 U/L 40-150 AST (SGOT) (BEAKER) (test zguw=957) 34 U/L 5-34 ALT (SGPT) (BEAKER) (test gwsv=646) 14 U/L 6-55 LACTIC ACID, ARTERIAL, WHOLE [id number] 02:34:00 Test Item Value Reference Range Comments LACTATE BLOOD ARTERIAL (2) 5.8 mmol/L 0.5-2.2 Specimen slightly hemolyzed (BEAKER) (test jwoy=2729) Effective 11/12/2015: Units/Reference Range ChangeNew: 0.5-2.2 mmol/L Previous: 5 -20 mg/dLCBC W/PLT COUNT & AUTO [id number] 02:31:00 Test Item Value Reference Range Comments WHITE BLOOD CELL COUNT (BEAKER) (test yqwd=429) 11.0 K/ L 3.5-10.5 RED BLOOD CELL COUNT (BEAKER) (test swhk=459) 3.83 M/ L 3.93-5.22 HEMOGLOBIN (BEAKER) (test zdps=372) 11.5 GM/DL 11.2-15.7 HEMATOCRIT (BEAKER) (test cxvb=483) 35.7 % 34.1-44.9 MEAN CORPUSCULAR VOLUME (BEAKER) (test imwt=319) 93.2 fL 79.4-94.8 MEAN CORPUSCULAR HEMOGLOBIN (BEAKER) (test 30.0 pg 25.6-32.2 nutb=170) MEAN CORPUSCULAR HEMOGLOBIN CONC (BEAKER) (test 32.2 GM/DL 32.2-35.5 ojyt=812) RED CELL DISTRIBUTION WIDTH (BEAKER) (test 15.1 % 11.7-14.4 tnon=191) PLATELET COUNT (BEAKER) (test unjl=769) 185 K/CU MM 150-450 MEAN PLATELET VOLUME (BEAKER) (test bbvn=471) 9.7 fL 9.4-12.3 NUCLEATED RED BLOOD CELLS (BEAKER) (test 1 /100 WBC 0-0 fuzk=231) NEUTROPHILS RELATIVE PERCENT (BEAKER) (test 82 % ccwy=851) LYMPHOCYTES RELATIVE PERCENT (BEAKER) (test 3 % ywhg=185) MONOCYTES RELATIVE PERCENT (BEAKER) (test 8 % cmdi=043) EOSINOPHILS RELATIVE PERCENT (BEAKER) (test 0 % qsel=393) BASOPHILS RELATIVE PERCENT (BEAKER) (test 1 % wrip=055) NEUTROPHILS ABSOLUTE COUNT (BEAKER) (test 9.00 K/ L 1.56-6.13 lhyt=017) LYMPHOCYTES ABSOLUTE COUNT (BEAKER) (test 0.34 K/ L 1.18-3.74 qdac=508) MONOCYTES ABSOLUTE COUNT (BEAKER) (test 0.86 K/ L 0.24-0.36 vobz=778) EOSINOPHILS ABSOLUTE COUNT (BEAKER) (test 0.01 K/ L 0.04-0.36 bgfa=974) BASOPHILS ABSOLUTE COUNT (BEAKER) (test 0.07 K/ L 0.01-0.08 fglp=759) IMMATURE GRANULOCYTES-RELATIVE PERCENT (BEAKER) 6 % 0-1 (test phfb=9455) BLOOD GAS, [id number] 02:23:00 Test Item Value Reference Range Comments PH ARTERIAL (BEAKER) (test ekre=693) 7.31 7.35-7.45 PCO2 ARTERIAL (BEAKER) (test yfgr=552) 46 mmHg 35-45 PO2 ARTERIAL (BEAKER) (test dknn=404) 75 mmHg 80-90 O2 SATURATION ARTERIAL (BEAKER) (test akss=693) 93.3 % 96.0-97.0 HCO3 ARTERIAL (BEAKER) (test byge=950) 22 mmol/L 21-29 BASE EXCESS ARTERIAL (BEAKER) (test chlh=750) -4.0 mmol/L -2.0-3.0 PATIENT TEMPERATURE (BEAKER) (test vyws=6344) 37.4 C FIO2 (BEAKER) (test qybh=4678) 80.0 % RAD, CHEST, 1 VIEW, NON [id number] 01:36:00Reason for exam:->central line placement Should this be performed at the bedside?->YesFINAL REPORT Comparison exam: 12/27/2017 Left pleural effusion unchanged. No pneumothorax. Stable cardiomediastinal contours. Appropriate position of the support hardware. Signed: Cash Cole MDReport Verified Date/ Time: 12/28/2017 01:36:56 Reading Location: [facility] C013X Ortho Consult Reading Room HCG, QUANTITATIVE, [id number] 00:08:00 Test Item Value Reference Range Comments GONADOTROPIN, CHORIONIC (HCG) QUANT (BEAKER) (test < mIU/mL 0-10 vazz=194) Non- Females: <10 mIU/mL Females: Gestation Age Reference Range(mIU/mL) 0.2-1 Week 5-50 1-2 Weeks 50-500 2-3 Weeks 100-5,000 3-4Weeks 500-10,000 4 -5 Weeks 1,000-50,000 5-6 Weeks 10,000-100,000 6-8 Weeks 15,000-200,000 2-3 Months 10,000-100,000BLOOD GAS, [id number] 00:01:00 Test Item Value Reference Range Comments PH ARTERIAL (BEAKER) (test qsus=419) 7.24 7.35-7.45 PCO2 ARTERIAL (BEAKER) (test jbyo=174) 44 mmHg 35-45 PO2 ARTERIAL (BEAKER) (test dhal=845) 75 mmHg 80-90 O2 SATURATION ARTERIAL (BEAKER) (test qvcn=850) 93.3 % 96.0-97.0 HCO3 ARTERIAL (BEAKER) (test axeo=393) 19 mmol/L 21-29 BASE EXCESS ARTERIAL (BEAKER) (test izby=100) -8.7 mmol/L -2.0-3.0 PATIENT TEMPERATURE (BEAKER) (test hphs=8409) 36.3 C FIO2 (BEAKER) (test atwy=6841) 100.0 % GLUCOSE-STAT [id number] 00:01:00 Test Item Value Reference Range Comments GLUCOSE RANDOM (BEAKER) (test osez=231) 284 mg/dL 70-110 CALCIUM, [id number] 00:01:00 Test Item Value Reference Range Comments CALCIUM IONIZED (BEAKER) (test rvvx=126) 0.97 mmol/L 1.12-1.27 PH, BLOOD (BEAKER) (test vptf=9196) 7.23 VANCOMYCIN LEVEL, [id number] 23:55:00 Test Item Value Reference Range Comments VANCOMYCIN RANDOM (BEAKER) (test pgbl=186) 18.6 ug/mL Reference Range: No NormalsCBC W/PLT COUNT & AUTO [id number] 23: 54:00 Test Item Value Reference Range Comments WHITE BLOOD CELL COUNT (BEAKER) (test zriv=047) 13.2 K/ L 3.5-10.5 RED BLOOD CELL COUNT (BEAKER) (test wzhu=267) 3.80 M/ L 3.93-5.22 HEMOGLOBIN (BEAKER) (test axky=747) 11.5 GM/DL 11.2-15.7 HEMATOCRIT (BEAKER) (test cvfb=477) 36.5 % 34.1-44.9 MEAN CORPUSCULAR VOLUME (BEAKER) (test jvwp=261) 96.1 fL 79.4-94.8 MEAN CORPUSCULAR HEMOGLOBIN (BEAKER) (test 30.3 pg 25.6-32.2 edol=887) MEAN CORPUSCULAR HEMOGLOBIN CONC (BEAKER) (test 31.5 GM/DL 32.2-35.5 iotm=789) RED CELL DISTRIBUTION WIDTH (BEAKER) (test 15.3 % 11.7-14.4 wetb=033) PLATELET COUNT (BEAKER) (test oqlm=951) 205 K/CU MM 150-450 MEAN PLATELET VOLUME (BEAKER) (test vjag=271) 10.0 fL 9.4-12.3 NUCLEATED RED BLOOD CELLS (BEAKER) (test 1 /100 WBC 0-0 uxxc=623) NEUTROPHILS RELATIVE PERCENT (BEAKER) (test 81 % vjky=865) LYMPHOCYTES RELATIVE PERCENT (BEAKER) (test 3 % yotf=307) MONOCYTES RELATIVE PERCENT (BEAKER) (test 11 % biqp=417) EOSINOPHILS RELATIVE PERCENT (BEAKER) (test 0 % pila=693) BASOPHILS RELATIVE PERCENT (BEAKER) (test 0 % kzej=382) NEUTROPHILS ABSOLUTE COUNT (BEAKER) (test 10.69 K/ L 1.56-6.13 uqdy=540) LYMPHOCYTES ABSOLUTE COUNT (BEAKER) (test 0.43 K/ L 1.18-3.74 info=362) MONOCYTES ABSOLUTE COUNT (BEAKER) (test 1.39 K/ L 0.24-0.36 rngm=393) EOSINOPHILS ABSOLUTE COUNT (BEAKER) (test 0.02 K/ L 0.04-0.36 byhn=490) BASOPHILS ABSOLUTE COUNT (BEAKER) (test 0.02 K/ L 0.01-0.08 kqrq=492) IMMATURE GRANULOCYTES-RELATIVE PERCENT (BEAKER) 5 % 0-1 (test fcgz=8555) RAD, CHEST, 1 VIEW, NON [id number] 23:41:00Reason for exam:->Respiratory Distress/new admissionShould this be performed at the bedside?->YesFINAL REPORT TECHNIQUE: Frontal view of the chest. INDICATION: 47-year-old woman in respiratory distress. COMPARISON: None. FINDINGS: LINES/ TUBES: The tip of an endotracheal tube terminates approximately 2.9 cm above the wally. Incompletely visualized nasogastric/orogastric tube courses over the expected region of the stomach, the tip is not visualized. LUNGS: Bilateral airspace opacities, left greater than right. PLEURA: Small left pleural effusion. HEART AND MEDIASTINUM: The cardiomediastinal silhouette is enlarged. SOFT TISSUES AND BONES: Unremarkable. IMPRESSION:Lines/tubes as above. Bilateral airspace opacities and small left pleural effusion. Differential considerations include multifocal pneumonia/aspiration and pulmonary edema. Signed: Tashi Heard MDReport Verified Date/Time: 12/27/2017 23:41:55 Reading Location: [facility] C0[facility] Consult Reading Room BASIC METABOLIC [id number] 23:40:00 Test Item Value Reference Range Comments SODIUM (BEAKER) (test 130 meq/L 136-145 zbkr=795) POTASSIUM (BEAKER) (test 3.9 meq/L 3.5-5.1 tumo=049) CHLORIDE (BEAKER) (test 97 meq/L 98-107 cnnd=060) CO2 (BEAKER) (test 15 meq/L 22-29 omct=680) BLOOD UREA NITROGEN 36 mg/dL 7-21 (BEAKER) (test ddai=893) CREATININE (BEAKER) (test 3.60 mg/dL 0.57-1.25 sexv=591) GLUCOSE RANDOM (BEAKER) 326 mg/dL 70-105 (test uzmu=418) CALCIUM (BEAKER) (test 6.7 mg/dL 8.4-10.2 tdkn=891) EGFR (BEAKER) (test mL/min/1.73 sq m INSUFFICIENT CLINICAL DATA wgfs=0328) TO CALCULATE ESTIMATED GFR. [id number] 23:09:00 Test Item Value Reference Range Comments PHOSPHORUS (BEAKER) (test fmtq=654) 7.9 mg/dL 2.3-4.7 [id number] 23:09:00 Test Item Value Reference Range Comments MAGNESIUM (BEAKER) (test sdsw=521) 1.7 mg/dL 1.6-2.6 HEPATIC FUNCTION [id number] 23:09:00 Test Item Value Reference Range Comments TOTAL PROTEIN (BEAKER) (test gcsz=936) 5.1 gm/dL 6.0-8.3 ALBUMIN (BEAKER) (test yypf=0845) 2.7 g/dL 3.5-5.0 BILIRUBIN TOTAL (BEAKER) (test swmy=997) 0.3 mg/dL 0.2-1.2 BILIRUBIN DIRECT (BEAKER) (test dbjo=836) 0.3 mg/dL 0.1-0.5 ALKALINE PHOSPHATASE (BEAKER) (test nnvt=272) 49 U/L 40-150 AST (SGOT) (BEAKER) (test rlrc=741) 20 U/L 5-34 ALT (SGPT) (BEAKER) (test gsot=411) 9 U/L 6-55 LACTATE DEHYDROGENASE (LDH)[id number] 23:09:00 Test Item Value Reference Range Comments LACTATE DEHYDROGENASE (BEAKER) (test gclz=498) 375 U/L 125-220 LACTIC ACID, ARTERIAL, WHOLE [id number] 23:02:00 Test Item Value Reference Range Comments LACTATE BLOOD ARTERIAL (2) (BEAKER) (test 5.9 mmol/L 0.5-2.2 zigv=4080) Effective 11/12/2015: Units/Reference Range ChangeNew: 0.5-2.2 mmol/L Previous: 5 -20 mg/dLPT/[id number] 23:01:00 Test Item Value Reference Range Comments PROTIME (BEAKER) (test iics=498) 17.0 seconds 11.7-14.7 INR (BEAKER) (test ukyt=239) 1.4 <=5.9 PARTIAL THROMBOPLASTIN TIME (BEAKER) (test 35.5 seconds 22.5-36.0 ywcd=311) RECOMMENDED COUMADIN/WARFARIN INR THERAPY RANGESSTANDARD DOSE: 2.0 - 3.0 Includes: PROPHYLAXIS forvenous thrombosis, systemic embolization; TREATMENT for venous thrombosis and/or pulmonary embolus.HIGH RISK: Target INR is 2.5-3.5 for patients with mechanical heart valves.[id number] 23:00:00 Test Item Value Reference Range Comments FIBRINOGEN LEVEL (BEAKER) (test pzas=769) 616 mg/dl 225-434 BLOOD GAS, [id number] 22:50:00 Test Item Value Reference Range Comments PH ARTERIAL (BEAKER) (test yybx=339) 7.16 7.35-7.45 PCO2 ARTERIAL (BEAKER) (test bxoy=364) 48 mmHg 35-45 PO2 ARTERIAL (BEAKER) (test rlug=995) 73 mmHg 80-90 O2 SATURATION ARTERIAL (BEAKER) (test keol=136) 89.1 % 96.0-97.0 HCO3 ARTERIAL (BEAKER) (test sfxm=058) 17 mmol/L 21-29 BASE EXCESS ARTERIAL (BEAKER) (test uarp=201) -11.7 mmol/L -2.0-3.0 PATIENT TEMPERATURE (BEAKER) (test falg=3259) 37.7 C FIO2 (BEAKER) (test xddf=7036) 100.0 % OXYGEN SATURATION, [id number] 22:49:00 Test Item Value Reference Range Comments O2 SATURATION (MEASURED) (BEAKER) (test pnpv=8373) 56.9 % POTASSIUM-STAT [id number] 22:47:00 Test Item Value Reference Range Comments POTASSIUM (BEAKER) (test wien=119) 3.8 meq/L 3.6-5.5 HGB/HCT (H&H) - STAT [id number] 22:47:00 Test Item Value Reference Range Comments HEMOGLOBIN (BEAKER) (test imws=974) 12.5 g/dL 12.0-15.0 HEMATOCRIT (BEAKER) (test eono=840) 37.0 % 36.0-45.0 CALCIUM, [id number] 22:47:00 Test Item Value Reference Range Comments CALCIUM IONIZED (BEAKER) (test ocep=792) 0.91 mmol/L 1.12-1.27 PH, BLOOD (BEAKER) (test pcvi=5974) 7.16 SODIUM NA-STAT [id number] 22:47:00 Test Item Value Reference Range Comments SODIUM (BEAKER) (test ccwx=888) 128 meq/L 135-148 GLUCOSE-STAT [id number] 22:47:00 Test Item Value Reference Range Comments GLUCOSE RANDOM (BEAKER) (test nzrb=915) 303 mg/dL 70-110
[2018-01-24] MEDS ORDERED: ALBUTEROL 2.5 MG/3 ML NEB SOL NEB PRN (20:06)
[2018-01-24] MEDS ORDERED: IPRATROPIUM BROM 0.5MG/2.5ML NEB PRN (20:06)
[2018-01-24] MEDS: NA CHLORIDE 0.9% 1,000 ML IV SCH (21:23)
[2018-01-24] MEDS: MORPHINE 4 MG/ML SYR IV PRN (21:24)
[2018-01-24] MEDS ORDERED: METOPROLOL TARTRATE 5 MG/5 ML INJ IV STA (23:10)
[2018-01-24] MEDS ORDERED: METOPROLOL TARTRATE 5 MG/5 ML INJ IV SCH (23:27)
[2018-01-24] MEDS ORDERED: AMITRIPTYLINE 50 MG TAB PO SCH (23:45)
[2018-01-25] MEDS ORDERED: AMIODARONE HCL 200 MG TAB PO ONE
--- NOTE | 2018-01-25 06:02 | EKG ---
Test Date: 2018-01-24 Test Time: 22:42:38 [employer] Operator: RT T MEASUREMENT RESULTS: Intervals: Rate: 138 [place]: QRSD: 80 QT: 266 QTc: 402 [place]: P: DE: QRS: 38 T: -12 INTERPRETIVE STATEMENTS: Atrial fibrillation with rapid ventricular response Nonspecific ST and T wave abnormality, probably digitalis effect Abnormal ECG Compared to ECG 12/27/2017 17:17:43 Sinus tachycardia no longer present Possible ischemia no longer present ST (T wave) deviation still present Electronically Signed On 01-25-18 06:01:22 CDT by Eze [place]
[2018-01-25 06:35] LABS: Absolute Lymphocytes (CBC) 1.4 K/uL (0.7-4.9); Absolute Monocytes 2.4 K/uL (0.1-1.3); Absolute Neutrophil 10.2 K/uL (1.8-8.0); Eosinophils % 8.5 % (0-4.4); Hematocrit 26.4 % (36.0-45.0); Lymphocytes % 9.1 % (15.3-44.8); MCV 89.8 fL (80-100); MPV 7.9 fL (7.6-11.3); Monocytes % 15.4 % (3.3-12.3); RBC Red Blood Cell Count 2.94 M/uL (3.86-4.86)
--- NOTE | 2018-01-25 08:41 | P.HP ---
Certification for Inpatient Patient admitted to: Inpatient With expected LOS: >2 Midnights Patient will require the following post-hospital care: None Practitioner: I am a practitioner with admitting privileges, knowledge of patient current condition, hospital course, and medical plan of care. Services: Services provided to patient in accordance with Admission requirements found in Title 42 Section 412.3 of the Code of Federal Regulations Patient History Date of Service: 01/24/18 Reason for admission: We accepted transfer per contract; treatment of empyema & septic shock History of Present Illness: Patient is a 47-year-old female who was seen in our hospital a month ago and found to have an empyema and was in septic shock. She required intubation and she was started on a Levophed drip. She was evaluated by the hospitalist and Pulmonary team. Decision was made to transfer to a higher level of care. Patient required thoracotomy and VATS procedure. Patient was transferred to [facility], but under a contract that once the procedure that we could not perform was completed we will take the patient back. Patient had treatment for the empyema. Patient remains on IV Zosyn. Clinically she is extubated and she states she is improved quite significantly. She is ambulating by herself to the bathroom. She still feels quite weak and wants to get physical therapy. She apparently was also given hemodialysis at [facility] as well as treatment for atrial fibrillation with rapid ventricular response. Her renal function has apparently improved and we may be able to remove her hemodialysis access catheter. Her atrial fibrillation is controlled with amiodarone. She was also found to have a DVT and will continue heparin for this and the atrial fibrillation. We will continue with current treatment and rehabilitation at this time. Continue with current plan of care as established at [facility]. Allergies caffeine Allergy (Verified 01/25/18 08:32) unkown hydrocodone [Hydrocodone] Allergy (Verified 12/27/17 18:16) Hives/Rash Hydrocodone-Acetaminophen Allergy (Uncoded 12/27/17 18:16) Anaphylaxis Home Medications: ALPRAZolam [Alprazolam] 1 mg OP BID 01/25/18 Divalproex Sodium [Divalproex Sodium ER] 3 tab PO BEDTIME 01/25/18 Gabapentin [Neurontin*] 2 tab PO BID 01/25/18 Ondansetron [Zofran Odt] 8 mg PO Q6HP PRN 01/25/18 Quetiapine Fumarate [Seroquel] 600 mg PO BEDTIME 01/25/18 - Past Medical/Surgical History Diabetic: No -: anxiety -: csection -: tonsilectomy -: I&D -: back sx - Family History Father Family History: Reviewed- Non-Contributory - Social History Alcohol use: Yes CD- Drugs: No Caffeine use: No Review of Systems 10-point ROS is otherwise unremarkable Physical Examination - Vital Signs Temperature: 97.0 F Blood Pressure: 130/85 Pulse: 97 Respirations: 20 Pulse Ox (%): 94 - Physical Exam General: Alert, In no apparent distress, Oriented x3 HEENT: Atraumatic, PERRLA, Mucous membr. moist/pink, EOMI, Sclerae nonicteric Neck: Supple, 2+ carotid pulse no bruit, No LAD, Without JVD or thyroid abnormality Respiratory: Clear to auscultation bilaterally, Diminished Cardiovascular: Regular rate/rhythm, Normal S1 S2, No murmurs Gastrointestinal: Normal bowel sounds, No tenderness Musculoskeletal: No clubbing, No swelling, No tenderness Integumentary: No rashes, Other ( Healing incision line by her pannus and by her left chest tube site; hemodialysis access catheter in place at the left subclavian) Neurological: Normal gait, Normal speech, Normal strength at 5/5 x4 extr, Normal tone, Normal affect Lymphatics: No axilla or inguinal lymphadenopathy - Studies Laboratory Data (last 24 hrs) 01/25/18 06:00: PT Cancelled, INR Cancelled, APTT Cancelled 01/25/18 05:38: WBC 15.4 H, Hgb 8.8 L, Hct 26.4 L, Plt Count 367 01/25/18 03:40: APTT 72.4 H 01/24/18 21:20: APTT 31.6 Assessment & Plan - Problems (Diagnosis) (1) SUSAN (acute kidney injury) Onset Date: 01/25/18 Current Visit: Yes Status: Acute (2) DVT (deep venous thrombosis) Onset Date: 01/25/18 Current Visit: Yes Status: Acute (3) Empyema Onset Date: 01/25/18 Current Visit: Yes Status: Acute (4) Atrial fibrillation with RVR Current Visit: Yes Status: Acute (5) Anemia Current Visit: Yes Status: Acute - Plan Plan: 1. Continue with IV antibiotics 2. Continue heparin drip and amiodarone 200mg po BID 3. Repeat chest x-ray in AM 4. Will order CT scan of the chest if symptoms start to worsen 5. Physical therapy evaluation 6. Continue with nebs as needed 7. O2 per protocol 8. Continue with gentle hydration 9. Repeat labs including CBC and renal function in a.m. 10. Nephrology consultation for possible dialysis catheter removal 11. GI and DVT prophylaxis Discharge Plan: Home Plan to discharge in: 24 Hours - Advance Directives Does patient have a Living Will: No Does patient have a Durable POA for Healthcare: No - Code Status/Comfort Care Code Status Assessed: Yes Code Status: Full Code Critical Care: No Time Spent Managing PTS Care (In Minutes): 50
[2018-01-25] MEDS: HEPARIN/D5W 25,000 UNIT/500 ML BAG IV SCH (08:51)
[2018-01-25] MEDS: PIPER/TAZO/NS 3.375gm 3.375 GM/100 ML BAG IVPB SCH ×2 (08:53→17:58)
[2018-01-25 09:00] LABS: Albumin 1.8 g/dL (3.4-5.0); Bilirubin Total 0.4 mg/dL (0.2-1.0); Magnesium 2.5 mg/dL (1.8-2.4); Phosphorus 8.2 mg/dL (2.5-4.9); Potassium 4.6 mmol/L (3.5-5.1); Protein, Total 7.3 g/dL (6.4-8.2)
[2018-01-25] MEDS: ESCITALOPRAM 20 MG TAB PO SCH ×2 (09:03→22:30)
[2018-01-25] MEDS: AMIODARONE HCL 200 MG TAB PO SCH ×2 (09:04→22:31)
[2018-01-25 09:11] LABS: Anisocytosis 2+; Blood Morphology Comment NOTED (NOT SEEN); Platelet Estimate ADEQ
--- NOTE | 2018-01-25 09:37 | EKG ---
Test Date: 2018-01-25 Test Time: 07:32:15 Stained Glass Window Designer: LORNE MEASUREMENT RESULTS: Intervals: Rate: 94 IA: 154 QRSD: 86 QT: 388 QTc: 485 [place]: P: 65 IA: 154 QRS: 41 T: 42 INTERPRETIVE STATEMENTS: Normal sinus rhythm Nonspecific T wave abnormality Prolonged QT Abnormal ECG Compared to ECG 01/24/2018 22:42:38 T-wave abnormality now present Prolonged QT interval now present Atrial fibrillation no longer present ST (T wave) deviation no longer present Electronically Signed On 01-25-18 09:36:14 CDT by Eze France
[2018-01-25 10:18] LABS: Protime INR 1.29
[2018-01-25] MEDS: MORPHINE 4 MG/ML SYR IV PRN ×2 (11:08→22:32)
--- NOTE | 2018-01-25 15:55 | PN ---
Date of Progress Note: 01/25/2018 Subjective: The patient is seen and examined. Chart reviewed and case discussed with RN and Dr. Tyson suarez. The patient complains of pain transferred from [facility] yesterday. Did have epi sode of atrial fibrillation, improved with amiodarone. Review of Systems: Negative except as above. Medications: List reviewed. Physical Examination: Vital Signs: Temperature 97.3, heart rate 139, blood pressure 158/100, respirations 20, O2 95% on 2 L via nasal cannula. General: Awake, alert, oriented x3. Mild distress. Ill-appearing female, morbidly obese. CV: S1, S2. Irregularly irregular. Peripheral pulses present. Respiratory: Diminished breath sounds bilaterally. No wheezing. Gastrointestinal: Abdomen is soft, nontender, nondistended. Positive bowel sounds. Extremities: No clubbing, cyanosis, pedal edema. Neurologic: Nonfocal. Skin: The patient has multiple wounds including necrotic eschar on right upper extremity wounds on h er bilateral groin and right neck. Laboratory Data: Sodium 135, potassium 4.6, chloride 99, CO2 of 23, BUN 73, creatinine 5.5, glucose 99, calcium 8.7, phosphorus 8.2, magnesium 2.5. WBC 15.4, H and H 8.8 and 26.4, platelets 367, neutr ophils 66%. INR 1.29. Assessment And Plan: A 47-year-old female with: 1.Acute kidney injury. The patient was on dialysis that was stopped on January 17. We will continue w ith monitoring creatinine and urine output. Nephrology on board. The patient may need to be restart ed on creatinine due to her electrolyte abnormalities. 2.Acute DVT. Continue heparin drip. We will bridge to Coumadin. 3.Empyema, status post decortication at [facility]. Chest tubes removed. 4.Atrial fibrillation with RVR, improved with amiodarone, now rate controlled. We will continue ant icoagulation. 5.Anemia, normocytic normochromic, likely anemia of chronic disease. 6.Hypermagnesemia. 7.Hyperphosphatemia. 8.Severe protein-calorie malnutrition. Albumin 1.8. Blood cultures pending. Gastrointestinal and deep venous thrombosis prophylaxis addressed. Plan: Overall guarded prognosis. We will obtain wound care and also social work consultation for di scharge planning. The patient to continue on IV antibiotics for empyema till 02/09/2018, and then sw itched to oral Augmentin for the rest of that month. /DANNA Voice ID: [id number] Report ID: [id number]
[2018-01-25] MEDS: WARFARIN SODIUM 5 MG TAB PO SCH (17:57)
--- NOTE | 2018-01-25 20:54 | RAD REPORT ---
EXAM DESCRIPTION: US - Renal Ultrasound-Complete - 01/25/2018 8:31 pm CLINICAL HISTORY: . Acute renal insufficiency COMPARISON: December 2017 FINDINGS: The right kidney measures 14 cm with a normal echotexture. The left kidney measures 13 cm with a normal echotexture. Hydronephrosis is not seen. No gross abnormality of the bladder is noted IMPRESSION: Unremarkable renal ultrasound.
[2018-01-25] MEDS ORDERED: HOME MED 1 EA UNK (Quetiapine Fumarate [Seroquel] 600 MG) PO SCH (21:00)
[2018-01-25] MEDS: AMITRIPTYLINE 25 MG TAB PO SCH (22:31)
[2018-01-25] MEDS: ALPRAZOLAM 1 MG TABLET PO SCH (22:31)
[2018-01-25] MEDS: DIVALPROEX ER 250 MG TAB PO SCH (22:31)
[2018-01-26] MEDS: PIPER/TAZO/NS 3.375gm 3.375 GM/100 ML BAG IVPB SCH ×3 (01:59→17:37)
--- NOTE | 2018-01-26 02:22 | CON ---
Date of Consultation: 01/25/2018 Additional Consulting Physician: Aleah Mays MD. Reason For Consultation: Elevated BUN and creatinine, fluid management. History Of Present Illness: This is a pleasant 47-year-old lady, unfortunate, with significant past medical history of hypertension, hyperlipidemia, the patient was recently admitted to the ER and then transferred to [facility] with septic shock, empyema. Her hospital course was complicated wi th multiorgan failure with respiratory failure, renal failure, and cardiac failure, had PA. The moo ent required CRRT, started on December 28. Then switched to conventional dialysis, then weaned from th e dialysis, last dialysis was January 17, the patient started producing good urine output. The patien t had empyema, status post drain recovered. Had PA with congestive heart failure. The patient is transferred back to our hospital to continue her care. The patient denied any kidney history before, and reviewing the record for the patient, her creatinine back in 2014 within normal l imit. On admission to the hospital in December, her creatinine was 4.3. The patient denied any nausea, any vomiting. Still has shortness of breath. No fever. Past Medical History: 1.Hypertension. 2.Hyperlipidemia. Allergies: TO HYDROCODONE. Past Surgical History: , tonsillectomy, empyema, drainage I and D. Social History: Active smoker. Occasional alcohol. Denies drug abuse. Review of Systems: Head and Neck: No red eye. No ear pain. GI: No nausea. No vomiting. : No polyuria. No dysuria. No hematuria. 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 Respiratory: Has shortness of breath. Cardiovascular: Has leg swelling. Endocrine: No polydipsia. Skin: No rash. Neuro: Generalized weakness. Musculoskeletal: No joint pain. Physical Examination: Vital Signs: Blood pressure 150/96, pulse of 95, afebrile. The patient still has good urine output. Chest: Crackles at bilateral bases. Heart: S1, S2. Regular. Abdomen: Soft, nontender. Extremities: Plus edema. Laboratory Data: Sodium 135, potassium 4.6, bicarb 23, BUN 73, creatinine 5.5, GFR of 8, calcium 8.7 , magnesium 2.5, phosphorus 8.2. Albumin 1.8. Corrected calcium is 10.4. Urinalysis; specific grav ity of 1.010. Renal ultrasound; normal-sized kidney 14 x 13. Medications: Current medications the patient on in the hospital include Zosyn 3.375 q.8, heparin, Co umadin, amiodarone, metoprolol p.r.n., alprazolam, amitriptyline, citalopram, morphine. Assessment And Plan: 1.Acute kidney injury secondary to multiorgan failure, septic shock, nonoliguric, weaned from the di alysis on the 17 of January, slightly on the wet side. I going to resume Lasix and we will follow up. We will keep holding on the dialysis and we will evaluate on a daily basis. 2.Hypertension. We will utilize blood pressure for more diuresis. 3.Proteinuria. Given the multiorgan failure and other history, I am going to send for full workup. 4.Anemia of chronic kidney disease. Send for the workup. 5.Renal failure. As above, the patient failed weaning from the dialysis, may need to go back on leah lysis. 6.Empyema, pneumonia. We will follow up with the primary. Current doses of the antibiotic are appr opriate. 7.Congestive heart failure as by Cardiology. 8.Hypercalcemia, mostly secondary to renal failure and poor mobilization. We will hold on any suppl ement. I am going to go ahead and send for PTH and we will follow up. 9.Hyperphosphatemia. We will start the patient on Renvela. We will follow up PTH. Case is discussed with the patient, verbalized understanding. Discussed with Dr. Mays and agreed on the plan. SAM Voice ID: [id number] Report ID: [id number]
[2018-01-26 05:14] LABS: Absolute Lymphocytes (CBC) 1.1 K/uL (0.7-4.9); Absolute Monocytes 2.3 K/uL (0.1-1.3); Absolute Neutrophil 9.3 K/uL (1.8-8.0); Basophils % 0.9 % (0-1.3); Hematocrit 25.6 % (36.0-45.0); MCH 29.6 pg (27.0-35.0); MCV 89.5 fL (80-100); MPV 7.6 fL (7.6-11.3); Monocytes % 16.1 % (3.3-12.3); RBC Red Blood Cell Count 2.85 M/uL (3.86-4.86)
[2018-01-26 05:57] LABS: Albumin 1.7 g/dL (3.4-5.0); BUN Blood Urea Nitrogen 60 mg/dL (7-18); Bicarbonate 24 mmol/L (21-32); Ferritin 825.6 ng/mL (8-388); Folic Acid, (Folate) > 20.0 ng/mL (3.1-17.5); Glucose Level 110 mg/dL (74-106); Phosphorus 8.4 mg/dL (2.5-4.9); Sodium Level 137 mmol/L (136-145); Transferrin 174 mg/dL (200-360)
[2018-01-26 06:22] LABS: Protime INR 1.56
[2018-01-26 07:29] LABS: Rheumatoid Factor NEG (NEG)
[2018-01-26] MEDS: COLLAGENASE 30 GM OINTMENT TOP SCH (09:00)
--- NOTE | 2018-01-26 09:33 | CON ---
History Present Illness: The patient has significant history of bipolar disorder, hypothyroidism, wa s transferred to [facility] for respiratory failure and chemistry pneumonia with septic em boli, pulmonary embolism and ARDS. The patient was put on ECMO from 12/28 to 12/30 with residual emp yema on the left requiring and placement of chest tube. The patient also has atrial fibri llation and amiodarone was started. The patient has multiple wounds at this time including groin are a and abdominal area, breast, coccyx area, right forearm with the eschar tissue, left shoulder blade. Sutures were also noted in the groin area and left big toe gangrene. The patient is not a good his femi. Most of the history was obtained through medical records. Past Medical History: As per HPI. Social History: Not available at this time. Family History: Noncontributory. Medication: Atrovent, albuterol, Xanax, amiodarone, Elavil, Lexapro, heparin, Lopressor, morphine, a nd Zosyn. Allergies: CAFFEINE, HYDROCODONE. Review of Systems: The patient has multiple studies done at [facility]. We will review the chart and make an addendum to the history. Physical Examination: General: This is a 47-year-old female, lying in bed, not in any acute cardiopulmonary distress. Vital Signs: Temperature 97.3, pulse 130, respirations 18, blood pressure 158/100. HEENT: Unremarkable. Neck: Supple. Jonas catheter noted in the left side of the neck. Lungs: Basal crackles. Musculoskeletal: Left scapular region has a wound. Left breast wound also noted. Right forearm esc ne tissue noted. Left shoulder, Coccyx area with wound also noted. Left foot big toe gangrene note d. Abdomen: Soft, nontender. Bowel sounds present. Extremity: No edema. Laboratory Data: Shows; WBC 35237, hemoglobin 8.8, platelets are 367. Chemistry shows sodium 135, p otassium 4.2, chloride 99, bicarb 23, BUN 7, creatinine 5.5, glucose is 99. Assessment And Plan: Status post respiratory failure, status post chemo, end-stage renal disease on hemodialysis, multiple wounds to the body. Recommend to apply Betadine that to the wound area and Be tadine to the right forearm. Medihoney with Alginate to the wound site. Continue pending culture results. Repeat chest x-ray. We will follow the patient closely. Thank you Dr. Mays for consult. FAVIO/DANNA Voice ID: [id number] Report ID: [id number]
--- NOTE | 2018-01-26 10:03 | P.PN ---
Date of Service: 01/26/18 S: The patient has no specific complaints today just feels exhausted. O: Open wounds both groins trauma necrotic area on right arm, sacral decubitus , and tip of the great left toe. Was evaluated by the wound care team. A: Numerous wounds, have been evaluated by the wound care team and I have discussed the care and treatment. P: Will do a nursing care to wounds as discuss with the wound care team. I will dictate a more elaborate note this evening.
[2018-01-26] MEDS: FUROSEMIDE 40 MG/4 ML VIAL IV SCH (10:07)
[2018-01-26] MEDS: SEVELAMER CARBONATE 800 MG TABLET PO SCH ×3 (10:09→17:37)
[2018-01-26] MEDS: ESCITALOPRAM 20 MG TAB PO SCH ×2 (10:09→20:31)
[2018-01-26] MEDS: AMIODARONE HCL 200 MG TAB PO SCH ×2 (10:09→20:31)
[2018-01-26] MEDS: HEPARIN/D5W 25,000 UNIT/500 ML BAG IV SCH (12:44)
--- NOTE | 2018-01-26 13:53 | EKG ---
Test Date: 2018-01-25 Test Time: 22:50:34 Shop Fitter: RT-O MEASUREMENT RESULTS: Intervals: Rate: 124 [place]: QRSD: 86 QT: 276 QTc: 396 [place]: P: [place]: QRS: 32 T: 9 INTERPRETIVE STATEMENTS: Atrial fibrillation with rapid ventricular response Nonspecific ST and T wave abnormality, probably digitalis effect Abnormal ECG Compared to ECG 01/25/2018 07:32:15 ST (T wave) deviation now present Sinus rhythm no longer present T-wave abnormality no longer present Prolonged QT interval no longer present Electronically Signed On 01-26-18 13:51:55 CDT by Vignesh Griffiths
[2018-01-26] MEDS: WARFARIN SODIUM 5 MG TAB PO SCH (17:37)
--- NOTE | 2018-01-26 18:24 | PN ---
Date of Progress Note: 01/26/2018 Subjective: The patient seen and examined, chart reviewed and case discussed with RN and Dr. Matson. The patient states her pain is controlled. No other significant complaints. No acute events overni ght. Review of Systems: Negative except as above. Medications: List reviewed. Physical Examination: Vital Signs: Temperature 97.5, heart rate 96, blood pressure 138/82, respirations 28, O2 92% on 3 li ters via nasal cannula. General: Awake, alert, and oriented x3, in some mild distress, morbidly obes e female, BMI 42.6, appears older than stated age, ill-appearing. CVS: S1-S2. Irregularly irregular. Peripheral pulses present. Respiratory: Moving air well bilaterally. No wheezing. Gastrointestinal: Abdomen is soft, nontender, nondistended. Positive bowel sounds. Extremities: No clubbing, cyanosis, or pedal edema. Neurologic: Nonfocal. Skin: The patient has multiple wounds including bilateral groin wounds, neck wound, necrotic eschar on right anterior forearm, and left first toe. Laboratory Data: WBC 14.1, H and H 8.5 and 25.6, platelets 413, neutrophils 66%. INR is 1.56. Sodi um 137, potassium 4, chloride 102, CO2 24, BUN 60, creatinine 4.8, glucose 110, lactate 0.7, calcium 8.1, phosphorus 8.4, iron 23, TIBC 244, transferrin 174, ferritin 825, albumin 1.7. Vitamin B12 990, folate greater than 20. TSH 11.6, free T4 0.64, PTH 202. Rheumatoid factor is negative. Immunolog y screening pending. Hepatitis panel pending. Blood cultures, no growth to date. Culture from [facility] is showing gram-negative rods from the right groin. The cultures from sputum are ira Deleon. I spoke with My Neuro, Dr. Anand, nurse practitioner from [facility] at length, discussing the patient's hospital stay. Assessment And Plan: A 47-year-old female with; 1.Acute kidney injury. The patient on dialysis that was stopped on January 09. Creatinine has contin ued to remain elevated with some electrolyte abnormalities including hypomagnesemia and hypophosphate vicki, may need to be restarted. We will defer to Nephrology. 2.Acute DVT. We will continue heparin drip, switched to Coumadin. INR 1.59. We will continue to m onitor daily. 3.Empyema, status post decortication in [facility] downto. Chest tubes are out. Sputum culture g kelin Acinetobacter baumannii. We will continue Zosyn. Will need to be continued until 02/09/2018 and then switch over to p.o. Augmentin. 4.Multiple wounds including groin wound, neck wound and necrotic eschar ulcers. Dr. Aly consult ed for possible debridement. Preliminary cultures from [facility] from the groin are growing gram- negative rods. We will follow up with final cultures. I did ask the nurse practitioner to fax us th e culture results. Her number is [phone]. 5.If results are not available to contact her. According to the CT surgeons, the sutures have to be removed within 2 weeks of her transfer. 6.Atrial fibrillation with rapid ventricular response. Continue amiodarone, now rate controlled. C ontinue anticoagulation. 7.Anemia normocytic normochromic, likely anemia of chronic disease. Iron panel reviewed. 8.Hypermagnesemia. 9.Hyperphosphatemia. 10.Severe protein-calorie malnutrition. Albumin 1.7. 11.Gastrointestinal and deep venous thrombosis prophylaxis addressed. Plan: Overall guarded prognosis. Continue wound care. Follow up with Surgery recommendations. /DANNA Voice ID: [id number] Report ID: [id number]
--- NOTE | 2018-01-26 19:01 | PN ---
Subjective: The patient lying in bed. Denies any headache, nausea, vomiting, chest pain, abdominal pain, constipation, or diarrhea. Objective: Vital signs: Temperature 97.5, pulse 96, respiration 18, and blood pressure 138/82. Lungs: Basal crackles. Heart: S1, S2. Regular. Abdomen: Soft, nontender. Bowel sounds present. Extremities: No edema. Laboratory Data: 14,000, down from yesterday 15,400, hemoglobin 8.5, platelets are 413. Chemistry s hows sodium 137, potassium 4, chloride 102, bicarb 24, BUN 60, creatinine 4.8, and glucose 110. Bloo d cultures, no growth in 24 hours. Assessment And Plan: Status post respiratory failure and empyema. The patient is doing better. Con tinue to be on Zosyn, tolerating well. No new challenges. Leukocytosis, multiple wounds. Plan for treatment was done yesterday. Continue supportive care. We will follow the patient closely. NF/MODL Voice ID: [id number] Report ID: [id number]
[2018-01-26] MEDS: AMITRIPTYLINE 25 MG TAB PO SCH (20:31)
[2018-01-26] MEDS: ALPRAZOLAM 1 MG TABLET PO SCH (20:31)
[2018-01-26] MEDS: DIVALPROEX ER 250 MG TAB PO SCH (20:31)
--- NOTE | 2018-01-27 00:08 | PN ---
Date of Progress Note: 01/26/2018 Chief Complaint: Elevated BUN and creatinine. History Of Present Illness: The patient is a 47-year-old woman with history of hypertension and hyperlipidemia. She was recently admitted to the hospital and was transferred to [facility] with septic shock and empyema. She had severe respiratory failure and congestive heart failure. She required CRRT. Subsequently, she was started on conventional dialysis when blood pressure improved. The patient has nonoliguric urine output. She is recovering from acute kidney injury. She has dialysis catheter and workup is pending to monitor renal function and to resume dialysis if needed. Creatinine level was elevated up to 4.3. Review of Systems: The patient denies fever or chills. Physical Examination: Lungs: Few crackles at bases. Heart: S1, S2. Abdomen: Soft, benign. Extremities: Slight edema. Laboratory Data: Hemoglobin 8.5, WBC 14.1, platelet count is 413,000. Sodium 137, potassium 4.0, chloride 102, CO2 of 24, BUN 60, creatinine 4.8, glucose 110 , calcium 8.1, phosphorus 8.4. Impression And Plan: 1. Acute kidney injury. The patient has nonoliguric urine output. Monitor urine output and electrolytes. 2. The patient does not have uremic symptomatology. 3. Hyperphosphatemia. Continue low phosphorus diet. Adjust binders. 4. Hypertension. Blood pressure in acceptable control. Avoid SAY inhibitor due to acute kidney injury. I spent total 36 min including 26 min to coordinate care plan. SEVEN/DANNA Voice ID: [id number] Report ID: [id number] ELIER
[2018-01-27] MEDS: PIPER/TAZO/NS 3.375gm 3.375 GM/100 ML BAG IVPB SCH ×3 (01:29→16:31)
[2018-01-27] MEDS: HEPARIN/D5W 25,000 UNIT/500 ML BAG IV SCH ×2 (03:30→20:15)
[2018-01-27 06:15] LABS: Absolute Lymphocytes (CBC) 1.5 K/uL (0.7-4.9); Absolute Monocytes 2.1 K/uL (0.1-1.3); Absolute Neutrophil 8.3 K/uL (1.8-8.0); Basophils % 1.3 % (0-1.3); Hematocrit 25.2 % (36.0-45.0); Lymphocytes % 10.9 % (15.3-44.8); MCH 29.5 pg (27.0-35.0); MPV 7.6 fL (7.6-11.3); Monocytes % 15.9 % (3.3-12.3)
[2018-01-27 06:20] LABS: Albumin 1.5 g/dL (3.4-5.0); Phosphorus 8.1 mg/dL (2.5-4.9); Potassium 3.6 mmol/L (3.5-5.1)
[2018-01-27] MEDS: SEVELAMER CARBONATE 800 MG TABLET PO SCH ×3 (08:31→16:31)
[2018-01-27] MEDS: AMIODARONE HCL 200 MG TAB PO SCH ×2 (08:31→20:16)
[2018-01-27] MEDS: ESCITALOPRAM 20 MG TAB PO SCH ×2 (08:32→20:16)
[2018-01-27] MEDS: FUROSEMIDE 40 MG/4 ML VIAL IV SCH (08:32)
[2018-01-27] MEDS: COLLAGENASE 30 GM OINTMENT TOP SCH (08:33)
[2018-01-27] MEDS ORDERED: Levofloxacin 250mg IV 250 MG/50 ML BAG IV SCH (11:00)
--- NOTE | 2018-01-27 13:50 | PN ---
Date of Progress Note: 01/27/2018 Subjective: The patient seen and examined, chart reviewed, and case discussed with RN and Dr. Aleks ann. The patient denies any significant pain except in her shoulder. Review of Systems: Negative except as above. Medications: List reviewed. Objective: Vital Signs: Temperature 97.1, heart rate 97, respirations 20, blood pressure 138/91, O2 93% on 3 L via nasal cannula. General: Awake, alert, oriented x3. Some mild distress, morbidly obese female, ill-appearing. CV: S1, S2. Irregularly irregular. Peripheral pulses present. Respiratory: Diminished breath sounds at the bases. No wheezing. Slightly tachypneic. Gastrointestinal: Abdomen is soft, nontender, nondistended. Positive bowel sounds. No guarding or rigidity. Extremities: No clubbing, cyanosis. The patient does have lower extremity edema. Neurologic: Nonfocal. Skin: The patient has multiple ulcers including bilateral groin, left breast, right first toe and in the neck. Laboratory Data: Sodium 141, potassium 3.6, chloride 106, CO2 25, BUN 52, creatinine 4.40, glucose 8 2, lactate 0.7, calcium 8, and phosphorus 8.1. Procalcitonin 0.68. WBC 13.4, H and H 8.2 and 25.2, platelets 469, and neutrophils 61%. Blood cultures, no growth to date. Sputum cultures from [facility] shows Acinetobacter, sensitive to Zosyn. Received faxed results and call from [facility], mid-level, with right groin cultures growing out Enterobacter cloacae, which is not sensitive to Zosyn, sensitive to Levaquin. Fax placed in the chart. Assessment And Plan: A 47-year-old female with; 1.Acute kidney injury. The patient may need to be resumed back on dialysis. We will continue to mo nitor creatinine. Follow up with Nephrology. Monitor electrolytes. 2.Acute deep venous thrombosis. Continue heparin and Coumadin. Check daily INR. 3.Empyema, [facility] Culture growing Acinetobacter baumanni i. We will continue Zosyn until 02/09/2018. Switch over to p.o. Augmentin for the rest of the month . 4.Multiple wound infections including groin, neck, breast, and toe. The patient also has some necro tic eschars. Dr. Blue does not recommend any debridement at this time. Right groin cultures grow ing Enterobacter cloacae, which is sensitive to Levaquin. We will adjust IV antibiotics. Please fin d mid-level contact information to my previous progress note for further questions. 5.Atrial fibrillation with rapid ventricular response, now with controlled ventricular rate, on amio darone. 6.Normocytic normochromic anemia, anemia of chronic disease. 7.Hypomagnesemia. 8.Hyperphosphatemia. 9.Severe protein-calorie malnutrition. Albumin 1.7. 10.Gastrointestinal and deep venous thrombosis prophylaxis with PPI and heparin. Overall guarded pr ognosis. SA/MODL Voice ID: [id number] Report ID: [id number]
[2018-01-27] MEDS: WARFARIN SODIUM 5 MG TAB PO SCH (16:31)
[2018-01-27] MEDS: ALPRAZOLAM 1 MG TABLET PO SCH (20:15)
[2018-01-27] MEDS: DIVALPROEX ER 250 MG TAB PO SCH (20:16)
[2018-01-27] MEDS: AMITRIPTYLINE 25 MG TAB PO SCH (20:16)
[2018-01-27] MEDS: NA CHLORIDE 0.9% 1,000 ML IV SCH (22:38)
[2018-01-28] MEDS: PIPER/TAZO/NS 3.375gm 3.375 GM/100 ML BAG IVPB SCH ×2 (00:34→09:17)
--- NOTE | 2018-01-28 00:38 | PN ---
Date of Progress Note: 01/27/2018 Subjective: The patient still has shortness of breath, feels better. Objective: Vital Signs: Blood pressure 133/71, pulse of 93. The patient had good urine output. Chest: Crackles in the base. Heart: S1, S2. Regular. Abdomen: Soft, nontender. Extremities: Plus edema. Laboratory Data: H and H 8.2/25.2. Sodium 141, potassium 3.6, bicarb 25, BUN down to 52, creatinine 4.4, calcium 8.0, phosphorus 8.1, albumin 1.5. PTH 202, TSH of 11. Current Medications: The patient on include Levaquin, Zosyn, Coumadin, amiodarone, amitriptyline, La six 40 daily, Renvela. Assessment And Plan: 1.Acute kidney injury, secondary to poor perfusion acute tubular necrosis, toxic acute tubular necro sis, shock, looked to me still on the wet side. I am going to go ahead and increase her Lasix to twi ce a day 40 mg. We will continue to monitor the patient. 2.Hypertension, controlled, optimal. We will utilize the blood pressure for more diuresis. 3.Empyema, status post treatment. We will follow up with the primary. 4.Diabetes as by primary. 5.Chronic obstructive pulmonary disease as by primary and Pulmonary. NTIIN/DANNA Voice ID: [id number] Report ID: [id number]
[2018-01-28 05:32] LABS: Absolute Lymphocytes (CBC) 1.4 K/uL (0.7-4.9); Absolute Monocytes 2.3 K/uL (0.1-1.3); Absolute Neutrophil 9.9 K/uL (1.8-8.0); Eosinophils % 7.7 % (0-4.4); Hematocrit 25.6 % (36.0-45.0); Lymphocytes % 9.5 % (15.3-44.8); MCH 30.3 pg (27.0-35.0); MCV 88.8 fL (80-100); MPV 7.2 fL (7.6-11.3); Monocytes % 15.4 % (3.3-12.3); RBC Red Blood Cell Count 2.88 M/uL (3.86-4.86)
[2018-01-28 06:48] LABS: Albumin 1.6 g/dL (3.4-5.0); Phosphorus 6.7 mg/dL (2.5-4.9); Potassium 3.6 mmol/L (3.5-5.1)
[2018-01-28 07:40] LABS: Protime INR 9.78
[2018-01-28 08:31] LABS: Anisocytosis 2+; Blood Morphology Comment NOTED (NOT SEEN); Platelet Estimate INCR
[2018-01-28] MEDS: ESCITALOPRAM 20 MG TAB PO SCH (09:17)
[2018-01-28] MEDS: SEVELAMER CARBONATE 800 MG TABLET PO SCH ×3 (09:18→16:31)
[2018-01-28] MEDS: FUROSEMIDE 40 MG/4 ML VIAL IV SCH ×2 (09:19→21:55)
[2018-01-28] MEDS: AMIODARONE HCL 200 MG TAB PO SCH ×2 (09:19→21:53)
[2018-01-28] MEDS: COLLAGENASE 30 GM OINTMENT TOP SCH (09:19)
--- NOTE | 2018-01-28 10:44 | P.PN ---
Subjective Date of Service: 01/28/18 Chief Complaint: Multiple ulcers in a DVT Patient's condition is stable she has multiple wounds the recent history of extensive hospitalization no new complaints this feels weak Mr isolated Review of Systems Unremarkable General: Weakness Physical Examination - Vital Signs Temperature: 97.3 F Blood Pressure: 145/89 Pulse: 93 Respirations: 18 Pulse Ox (%): 100 - Physical Exam General: Alert, Oriented x3 HEENT: Atraumatic Neck: Supple Respiratory: Clear to auscultation bilaterally Integumentary: Other (Patient has multiple wounds with infection) - Studies Laboratory Data (last 24 hrs) 01/28/18 06:19: PT 118.1 H, INR 9.78 H*, APTT 47.7 H 01/28/18 06:19: Sodium 142, Potassium 3.6, BUN 40 H, Creatinine 3.80 H, Glucose 86, Phosphorus 6.7 H 01/28/18 05:11: WBC 15.0 H, Hgb 8.7 L, Hct 25.6 L, Plt Count 560 H 01/27/18 23:43: APTT 60.8 H 01/27/18 22:45: APTT 47.2 H 01/27/18 17:46: APTT 62.1 H 01/27/18 13:49: APTT 64.7 H Assessment & Plan - Problems (Diagnosis) (1) Wound infection Current Visit: Yes Status: Acute Plan: Patient has multiple wounds with the possible infection I have added doxycycline white count is mildly elevated (2) Renal failure Current Visit: Yes Status: Acute Plan: Renal function is improving Qualifiers: Renal failure chronicity: chronic Chronic kidney disease stage: stage 4 ( severe) Qualified Code(s): N18.4 - Chronic kidney disease, stage 4 (severe) (3) DVT (deep venous thrombosis) Onset Date: 01/25/18 Current Visit: Yes Status: Acute Plan: Patient developed a recent DVT I suggest changing to Eliquis until her INR is declined I suspect her PT is very elevated secondary to interaction with levofloxacin which has been discontinued
[2018-01-28 12:05] LABS: Protime INR 11.49
[2018-01-28] MEDS ORDERED: VITAMIN K (ADULT) 10 MG/ML IVP ONE (12:18)
[2018-01-28] MEDS: SOD FERRIC GLUC COMPLX/SUCROSE 250 MG in NA CHLORIDE 0.9% 250 ML IV SCH (14:45)
[2018-01-28 15:58] LABS: Hepatitis C Virus RNA (PCR)log <1.18 log IU/mL
[2018-01-28] MEDS ORDERED: Meropenem 500 MG VIAL IV SCH (17:00)
[2018-01-28 17:33] LABS: HIV 1/2 Antibody Diff Not indicated.; HIV AG/AB 4TH GEN Non-reactive (Non-reactive)
[2018-01-28 18:58] LABS: Anti-Cardiolipin IgA Antibody <11 APL (<=11)
[2018-01-28] MEDS: MORPHINE 4 MG/ML SYR IV PRN (20:25)
[2018-01-28] MEDS: Meropenem 250 MG in NA CHLORIDE 0.9% 100 ML IV SCH (21:51)
[2018-01-28] MEDS: DIVALPROEX ER 250 MG TAB PO SCH (21:52)
[2018-01-28] MEDS: DOXYCYCLINE 100 MG CAP PO SCH (21:54)
[2018-01-28] MEDS: ALPRAZOLAM 1 MG TABLET PO SCH (21:54)
[2018-01-28] MEDS: AMITRIPTYLINE 25 MG TAB PO SCH (21:54)
--- NOTE | 2018-01-29 01:27 | PN ---
Date of Progress Note: 01/28/2018 NEPHROLOGY FOLLOWUP Subjective: The patient doing better. No nausea. No vomiting. We start diuresing the patient. Th e patient continue to recover. Physical Examination: Vital Signs: Blood pressure 133/91, pulse of 102, temperature 97.3. Chest: Faint crackles in the base. Heart: S1, S2. Regular. Abdomen: Soft, nontender. Extremities: Trace edema. Laboratory Data: WBC 15, H and H 8.7/25.6, platelet 560. Sodium 142, potassium 3.6, bicarb 27, BUN 40, creatinine down to 3.8, GFR of 13, phos 6.8, calcium 8.5, albumin 1.6. Current Medications: The patient on its include; 1.Doxycycline. 2.Meropenem 250 b.i.d. 3.Coumadin. 4.Amiodarone. 5.Alprazolam. 6.Amitriptyline. 7.Citalopram. 8.Lasix 40 b.i.d. 9.Renvela 1600 b.i.d. Assessment And Plan: 1.Acute kidney injury secondary to toxic acute tubular necrosis. Continue to recover, nonoliguric. I do not see the need for renal replacement therapy for the time being. We will keep holding on the dialysis. Continue diuresis. 2.Acute empyema. Continue current antibiotic. 3.Iron deficiency anemia. Started on IV iron. 4.Diabetes as by primary. 5.Chronic obstructive pulmonary disease in respiratory failure as by Pulmonary. NITIN/DANNA Voice ID: [id number] Report ID: [id number]
[2018-01-29 02:49] LABS: HBsAG Nonreactive (Nonreactive)
[2018-01-29 05:29] LABS: Protime INR 2.02
[2018-01-29 05:45] LABS: Albumin 1.8 g/dL (3.4-5.0); Phosphorus 6.1 mg/dL (2.5-4.9); Potassium 3.3 mmol/L (3.5-5.1)
--- NOTE | 2018-01-29 08:00 | RAD REPORT ---
EXAM DESCRIPTION: RAD - Chest Single View - 01/29/2018 5:56 am CLINICAL HISTORY: Shortness of breath COMPARISON: CT chest December 27, portable chest December 27 TECHNIQUE: AP portable chest image was obtained 0543 hours . FINDINGS: Lung volumes are low. Left jugular vascular access catheter is in place. Patient also has a right upper extremity PICC line with tip in the mid SVC. No peripheral mass or consolidations seen though left base assessment is limited. Cardiomegaly is pre sent. There is vascular engorgement and prominence of the perihilar vasculature. Left hemithorax aera tion of the lung field is improved from the prior study. Again, left base remains limited in assessme nt. No pneumothorax is present. No large pleural effusion. Trachea is midline. No gross bony abnormality seen. No acute aortic findings suspected. IMPRESSION: CHF/volume overload pattern mild in severity. Infiltrate and/ or atelectasis left base cannot be excluded. Right upper extremity PICC line in good position. Left jugular vascular access catheter also in place with tip in the mid SVC along the lateral wall.
[2018-01-29] MEDS: Meropenem 250 MG in NA CHLORIDE 0.9% 100 ML IV SCH (08:11)
[2018-01-29] MEDS: FUROSEMIDE 40 MG/4 ML VIAL IV SCH ×2 (08:12→23:07)
[2018-01-29] MEDS: SEVELAMER CARBONATE 800 MG TABLET PO SCH ×3 (08:14→17:52)
[2018-01-29] MEDS: DOXYCYCLINE 100 MG CAP PO SCH ×2 (08:16→23:05)
[2018-01-29] MEDS: COLLAGENASE 30 GM OINTMENT TOP SCH (08:16)
[2018-01-29] MEDS: AMIODARONE HCL 200 MG TAB PO SCH ×2 (08:16→23:05)
[2018-01-29] MEDS ORDERED: POTASSIUM CL SA 10 MEQ TAB PO ONE (09:25)
[2018-01-29] MEDS: levoFLOXacin 250 MG TAB PO SCH (09:47)
--- NOTE | 2018-01-29 10:13 | P.PN ---
Subjective Date of Service: 01/29/18 Chief Complaint: Multiple ulcers in a DVT No you change fall rating a diet Review of Systems Unremarkable General: Weakness Physical Examination - Vital Signs Temperature: 97 F Blood Pressure: 143/89 Pulse: 90 Respirations: 20 Pulse Ox (%): 92 - Physical Exam General: Alert, Oriented x3 HEENT: Atraumatic Neck: Supple Respiratory: Clear to auscultation bilaterally, Diminished Cardiovascular: No edema, Regular rate/rhythm - Studies Laboratory Data (last 24 hrs) 01/29/18 04:50: PT 24.0 H, INR 2.02, APTT 39.0 H 01/29/18 04:50: Sodium 141, Potassium 3.3 L, BUN 35 H, Creatinine 3.40 H, Glucose 75, Phosphorus 6.1 H 01/28/18 11:38: PT 139.0 H, INR 11.49 H*, APTT 109.2 H* 01/28/18 10:02: PT Cancelled, INR Cancelled Assessment & Plan - Problems (Diagnosis) (1) Wound infection Current Visit: Yes Status: Acute Plan: Patient has multiple wound infections patient has organism is multi resistant meropenem and Zosyn resumed levofloxacin will inform ID (2) Renal failure Current Visit: Yes Status: Acute Plan: Renal function is improving Qualifiers: Renal failure chronicity: chronic Chronic kidney disease stage: stage 4 ( severe) Qualified Code(s): N18.4 - Chronic kidney disease, stage 4 (severe) (3) DVT (deep venous thrombosis) Onset Date: 01/25/18 Current Visit: Yes Status: Acute Plan: PT INR as declined resume warfarin 5 mg
[2018-01-29] MEDS: MORPHINE 4 MG/ML SYR IV PRN ×2 (16:18→23:29)
--- NOTE | 2018-01-29 16:26 | PN ---
Date of Progress Note: 01/29/2018 Subjective: The patient is doing much better. No nausea. No vomiting. Weaned from the Dialysis si nce 10th. Had good urine output. Physical Examination: Vital Signs: Blood pressure of 143/89, pulse of 90 afebrile. The patient had good urine output. Chest: Crackles, faint in the base. Heart: S1, S2. Regular. Abdomen: Soft, nontender. Extremity: Trace edema. Neurologic: Alert, no tremor. Urine output of 2500. Laboratory Data: WBC 15, H and H 8.7/25.6, platelets 560. Sodium 143, potassium 3.3, bicarb 28, BUN 35, creatinine down to 3.4, GFR of 15, calcium 8.5, phosphor down to 6.1, albumin 1.8. Current Medications: Include, 1.Doxycycline. 2.Levaquin 250 daily. 3.IV iron. 4.Coumadin. 5.Amiodarone. 6.Amitriptyline. 7.Lexapro. 8.Renvela 1600 b.i.d. 9.Lasix b.i.d. 10.Morphine. Assessment And Plan: 1.Acute kidney injury secondary to toxic acute tubular necrosis, poor perfusion, acute tubular necro sis secondary to septic shock. Required dialysis. Weaned from the dialysis, I do not see the need f or dialysis anymore. Continue Lasix, discontinue dialysis catheter to avoid any line infection. 2.Hypertension, controlled, optimal. Continue current medication. Continue diuresis. 3.Secondary hyperparathyroidism. Continue Renvela. 4.Congestive heart failure exacerbation. We will continue diuresis. 5.Hypercoagulopathy secondary to Coumadin. Status post vitamin K, currently INR down to 2, better, we will follow up. 6.Empyema. Continue current antibiotic. We will follow up with Pulmonary. 7.Iron deficiency anemia. Continue supplement. NITIN/DANNA Voice ID: [id number] Report ID: [id number]
[2018-01-29] MEDS: WARFARIN SODIUM 5 MG TAB PO SCH (17:52)
[2018-01-29] MEDS: ALPRAZOLAM 1 MG TABLET PO SCH (23:00)
[2018-01-29] MEDS: AMITRIPTYLINE 25 MG TAB PO SCH (23:05)
[2018-01-29] MEDS: ESCITALOPRAM 20 MG TAB PO SCH (23:06)
[2018-01-29] MEDS: DIVALPROEX ER 250 MG TAB PO SCH (23:09)
[2018-01-30 05:50] LABS: Protime INR 2.17
[2018-01-30 06:01] LABS: Albumin 1.8 g/dL (3.4-5.0); Phosphorus 4.9 mg/dL (2.5-4.9); Potassium 3.3 mmol/L (3.5-5.1)
--- NOTE | 2018-01-30 07:43 | EKG ---
Test Date: 2018-01-29 Test Time: 02:43:01 Habilitation Training Specialist: RT- MEASUREMENT RESULTS: Intervals: Rate: 97 FL: 150 QRSD: 88 QT: 456 QTc: 579 [place]: P: 63 FL: 150 QRS: 30 T: 49 INTERPRETIVE STATEMENTS: Normal sinus rhythm Possible Left atrial enlargement Nonspecific T wave abnormality Prolonged QT Abnormal ECG Compared to ECG 01/29/2018 00:40:03 T-wave abnormality now present Prolonged QT interval now present Atrial fibrillation no longer present ST (T wave) deviation no longer present Electronically Signed On 01-30-18 07:42:48 CDT by zEe [place]
--- NOTE | 2018-01-30 07:44 | EKG ---
Test Date: 2018-01-29 Test Time: 00:40:03 Electrician Station Assistant: RT-R MEASUREMENT RESULTS: Intervals: Rate: 132 MN: QRSD: 100 QT: 270 QTc: 400 [place]: P: MN: QRS: 30 T: 199 INTERPRETIVE STATEMENTS: Atrial fibrillation with rapid ventricular response Nonspecific ST and T wave abnormality, probably digitalis effect Abnormal ECG Compared to ECG 01/25/2018 22:50:34 No significant changes Electronically Signed On 01-30-18 07:43:12 CDT by Eze [place]
[2018-01-30] MEDS: FUROSEMIDE 40 MG/4 ML VIAL IV SCH ×2 (08:20→21:28)
[2018-01-30] MEDS: DOXYCYCLINE 100 MG CAP PO SCH ×2 (08:21→21:26)
[2018-01-30] MEDS: SEVELAMER CARBONATE 800 MG TABLET PO SCH ×3 (08:21→16:54)
[2018-01-30] MEDS: levoFLOXacin 250 MG TAB PO SCH (08:21)
[2018-01-30] MEDS: AMIODARONE HCL 200 MG TAB PO SCH ×2 (08:21→21:27)
[2018-01-30] MEDS: COLLAGENASE 30 GM OINTMENT TOP SCH (08:22)
[2018-01-30] MEDS: MORPHINE 4 MG/ML SYR IV PRN ×2 (11:22→15:58)
[2018-01-30] MEDS ORDERED: ALTEPLASE 2 MG/VIAL IV ONE (13:00)
--- NOTE | 2018-01-30 13:44 | PN ---
Date of Progress Note: 01/30/2018 Subjective: The patient is seen and examined, chart reviewed, and case discussed with RN. The patient states she is doing better. No specific complaints. No acute events overnight. Review of Systems: Negative except as above. Medications: List reviewed. Objective: Vital Signs: Temperature 96.5, heart rate 100, blood pressure 116/ 72, respirations 16, O2 saturation 94% on 3 L via nasal cannula. General: Awake, alert, oriented x3, not in any acute distress. Morbidly obese female. BMI 42. CV S1, S2. No murmurs. Peripheral pulses present. Respiratory: Diminished breath sounds at the bases. No wheezing. No crackles. Gastrointestinal: Abdomen is soft, nontender, nondistended. Positive bowel sounds. Extremities: No clubbing, cyanosis. Trace pedal edema. Skin: The patient has multiple wounds including bilateral inguinal wounds, neck wound like eschar on the right anterior forearm and left first toe. Neurologic: Nonfocal. Laboratory Data: INR is 2.17. Sodium 142, potassium 3.3, chloride 103, CO2 31 , BUN 30, creatinine 3.1, glucose 71, calcium 8.6, albumin 1.8. Catheter tip from the left neck shows no growth. Blood cultures, no growth in 5 days, but [facility] shows Acinetobacter and right groin wound growing Enterobacter. Assessment: A 47-year-old female with; 1. Acute kidney injury. No need for further dialysis. Catheter to be removed. 2. Acute dep venous thrombosis. We will continue Coumadin daily. INR checks. Keep INR between 2 and 3. The patient did have coagulopathy once her antibiotics were changed. Now resolved. 3. Empyema, status post decortication at [facility]. Culture growing Acinetobacter baumannii. We will discuss with infectious disease. The patient was recommended to be on Zosyn until 02/09/2018. 4. Multiple wound infections including groin, neck, breast, toe with necrotic eschars. No surgical debridement at this time. Right groin culture growing Enterobacter cloacae, sensitive to Levaquin. 5. Atrial fibrillation with rapid ventricular response, now with controlled ventricular rate, on amiodarone. Coumadin 6. Normocytic normochromic anemia, anemia of chronic disease. Monitor H and H. 7. Severe protein-calorie malnutrition. Albumin is 1.8. We will continue supplementation. 8. Acute tubular necrosis, resolved. 9. Gastrointestinal and deep venous thrombosis prophylaxis, addressed. Plan: Discharge planning. We will discuss with ID regarding long-term IV antibiotics versus switching to p.o. Repeat blood cultures here have been negative. Line culture is also negative to date. White count elevated at this time, however, no fevers. We will repeat CBC in a.mChano ZEE/DANNA Voice ID: [id number] Report ID: [id number] ELIER
[2018-01-30] MEDS ORDERED: WATER FOR INJ,STERILE 10 ML IV SCH (14:00)
--- NOTE | 2018-01-30 15:07 | P.PN ---
Date of Service: 01/30/18 S: The patient has no new specific complaints, Apart from feeling extremely tied. Not much of an appetite. O: Groin wounds are much improved, minimal amount of seepage. Neck wound looks good, area on arm clean as well. A: Wounds starting to improve P: Encourage p.o. protein intake, ambulate more, continue wound care.
[2018-01-30] MEDS: WARFARIN SODIUM 5 MG TAB PO SCH (16:54)
--- NOTE | 2018-01-30 17:26 | PN ---
Subjective: The patient lying in bed, somnolent, not in any acute distress. Objective: Vital Signs: Temperature 97, pulse 100, respirations 18, blood pressure 116/72. Lungs: Basal crackles. Heart: S1, S2. Regular. Abdomen: Soft, nontender. Bowel sounds positive. Extremity: No edema. Assessment And Plan: Empyema multiple wounds to the groin, breast, toe with necrotic eschar. Leukoc ytosis, continue to be elevated. Currently being treated with IV antibiotic including currently bein g on oral antibiotic doxy and Levaquin. We will follow the patient as needed. Continue wound care. NF/MODL Voice ID: [id number] Report ID: [id number]
[2018-01-30 18:23] LABS: Scleroderma Antibody (Scl-70) <1.0 AI (<1.0)
[2018-01-30 19:31] LABS: P-ANCA Anti-Myeloperoxidase Ab <1.0 AI (<1.0)
[2018-01-30] MEDS: DIVALPROEX ER 250 MG TAB PO SCH (21:26)
[2018-01-30] MEDS: AMITRIPTYLINE 25 MG TAB PO SCH (21:26)
[2018-01-30] MEDS: ESCITALOPRAM 20 MG TAB PO SCH (21:27)
[2018-01-30] MEDS: ALPRAZOLAM 1 MG TABLET PO SCH (21:27)
--- NOTE | 2018-01-30 23:00 | PN ---
Date of Progress Note: 01/30/2018 Chief Complaint: Acute kidney injury secondary to acute tubular necrosis, nonoliguric. Subjective: The patient previously developed severe acute kidney injury secondary to septic shock. The patient required CVVHD. Subsequently, she was switched to dialysis and dialysis has been on hold since January 17. The patient has acute kidney injury. Renal function is plateauing. The patient has hypoalbuminemia and secondary hyperparathyroidism. Review of Systems: The patient denies complaints. Physical Examination: Lungs: Clear to auscultation bilaterally. Heart: S1, S2. Abdomen: Soft, benign. Extremities: Some edema present. Vital Signs: Blood pressure 124/72, SpO2 95%, temperature 97.1. Laboratory Data: Sodium 142, potassium is 3.3, chloride 103, CO2 of 31, BUN 30, creatinine 3.10, negin cium 8.6, albumin 1.8. Impression And Plan: 1.Acute kidney injury. Renal function plateauing. There is some improvement of azotemia. Continue to assess renal panel and hypokalemia replacement as needed. 2.Hypoalbuminemia. Increase p.o. protein intake. 3.Hypertension. Blood pressure control. SEVEN/MODLan Voice ID: [id number] Report ID: [id number]
[2018-01-31 04:52] LABS: Bilirubin Total 0.3 mg/dL (0.2-1.0); Potassium 3.1 mmol/L (3.5-5.1); Protein, Total 7.4 g/dL (6.4-8.2)
[2018-01-31 05:08] LABS: Absolute Lymphocytes (CBC) 2.2 K/uL (0.7-4.9); Absolute Monocytes 3.1 K/uL (0.1-1.3); Absolute Neutrophil 8.7 K/uL (1.8-8.0); Basophils % 1.1 % (0-1.3); Hematocrit 25.5 % (36.0-45.0); MCH 29.7 pg (27.0-35.0); MCV 89.1 fL (80-100); MPV 6.9 fL (7.6-11.3); Monocytes % 20.8 % (3.3-12.3); RBC Red Blood Cell Count 2.87 M/uL (3.86-4.86)
[2018-01-31 06:03] LABS: Blood Morphology Comment NOT SEEN (NOT SEEN); Platelet Estimate INCR
[2018-01-31] MEDS: SEVELAMER CARBONATE 800 MG TABLET PO SCH ×3 (08:25→17:41)
[2018-01-31] MEDS: FUROSEMIDE 40 MG/4 ML VIAL IV SCH ×2 (10:40→20:26)
[2018-01-31] MEDS: AMIODARONE HCL 200 MG TAB PO SCH ×2 (10:40→20:25)
[2018-01-31] MEDS: POTASSIUM CL SA 10 MEQ TAB PO SCH (10:40)
[2018-01-31] MEDS: levoFLOXacin 250 MG TAB PO SCH (10:41)
[2018-01-31] MEDS: DOXYCYCLINE 100 MG CAP PO SCH (10:41)
[2018-01-31] MEDS: COLLAGENASE 30 GM OINTMENT TOP SCH (10:43)
[2018-01-31] MEDS: MORPHINE 4 MG/ML SYR IV PRN ×2 (10:48→15:21)
--- NOTE | 2018-01-31 12:48 | PN ---
Date of Progress Note: 01/31/2018 Subjective: The patient is doing better. The patient is going to require antibiotic till the . Physical Examination: Vital Signs: Blood pressure 119/72, pulse of 93, afebrile. The patient had good urine output. Chest: Clear to auscultation. Heart: S1, S2. EXTREMITIES: No edema. Laboratory Data: H and H 8.5/25.5. Sodium 140, potassium 3.1, bicarb 30. BUN 27, creatinine 2.8, c alcium 8.5. Current Medications: The patient on includes doxycycline, Levaquin, IV iron, Coumadin, amiodarone, a mitriptyline, citalopram, Lasix 40 b.i.d., and Renvela. Assessment And Plan: 1.Acute kidney injury secondary to toxic acute tubular necrosis secondary to septic shock, status po st dialysis, doing dialysis on December 18. We going to watch in continue diuresis. 2.Hypertension. Continue current medication. Controlled, optimal. We will utilize blood pressure for more diuresis. 3.Anemia of iron deficiency. Continue IV iron. 4.Hypokalemia. We will continue the patient on supplement. We will follow up. 5.Proteinuria. SPEP still pending. Serology was negative including hepatitis, human immunodeficien cy virus, SUKHJINDER, complement and double strand. Rule out any autoimmune, pending light chain disease. 6.Sepsis. Continue followup with ID. Continue current antibiotic. SAM Voice ID: [id number] Report ID: [id number]
[2018-01-31 12:53] LABS: Protime INR 7.53
--- NOTE | 2018-01-31 13:33 | PN ---
Date of Progress Note: 01/31/2018 Subjective: The patient is seen and examined. Chart reviewed and case discussed with RN. The patie nt denies any significant pain. No acute events overnight. Review of Systems: Negative except as above. Medications: List reviewed. Physical Examination: Vital Signs: Temperature 97.3, heart rate 91, blood pressure 103/64, respirations 20, O2 saturation 96% on 3 L via nasal cannula. General: Awake, alert, oriented x3. No acute distress. Elderly ill-appearing female, morbidly obes e, BMI 41. CV: S1, S2. No murmurs. Peripheral pulses present. Respiratory: Moving air well bilaterally. No wheezing. Gastrointestinal: Abdomen is soft, nontender, nondistended. Positive bowel sounds. Extremities: No clubbing or cyanosis. Trace pedal edema. Neurologic: Nonfocal. Skin: The patient has multiple wounds including right neck and bilateral groin. The patient has a n ecrotic eschar on right upper extremity and left first toe. Laboratory Data: Sodium 140, potassium 3.1, chloride 100, CO2 of 30. BUN 27, creatinine 2.8, glucos e 76, calcium 8.5. WBC 14.8, H and H 8.5 and 25.5, platelets 514, neutrophils 59%. INR pending. Assessment And Plan: A 47-year-old female with; 1.Acute kidney injury, improved. Monitor creatinine. Appreciate Nephrology input. 2.Acute deep venous thrombosis. We will continue to monitor INR. Continue Coumadin. 3.Empyema, status post decortication at [facility]. Culture growing Acinetobacter nikky rivera. ID on board. We will continue IV antibiotics until 02/09/2018 and then switch to p.o. Augmenti n for the rest of the month. 4.Multiple wound infections including groin, neck, breast, toe, some necrotic eschars. No surgical debridement at this time. Appreciate Dr. Blue's input. [facility] cloacae sensitive to Levaquin. 5.Atrial fibrillation with rapid ventricular response, now in sinus rhythm on Coumadin. Continue am iodarone. 6.Normocytic normochromic anemia. Anemia of chronic disease. Monitor hemoglobin and hematocrit. 7.Severe protein-calorie malnutrition. 8.Acute tubular necrosis, resolved. 9.Gastrointestinal and deep venous thrombosis prophylaxis, addressed. SA/MODL Voice ID: [id number] Report ID: [id number]
[2018-01-31 14:20] LABS: Protime INR 7.93
[2018-01-31] MEDS: SOD FERRIC GLUC COMPLX/SUCROSE 250 MG in NA CHLORIDE 0.9% 250 ML IV SCH (15:22)
[2018-01-31] MEDS ORDERED: VITAMIN K (ADULT) 10 MG/ML SQ SCH (16:00)
[2018-01-31] MEDS: PIPER/TAZO/NS 2.25gm 2.25 GM/50 ML BAG IVPB SCH (17:41)
[2018-01-31 18:42] LABS: Albumin, (SPE) 2.5 g/dL (3.8-4.8); Alpha-1-Globulins 0.7 g/dL (0.2-0.3); Alpha-2-Globulins 0.9 g/dL (0.5-0.9); Gamma Globulins 1.5 g/dL (0.8-1.7); INTERPRETATION REPORT
[2018-01-31] MEDS: ALPRAZOLAM 1 MG TABLET PO SCH (20:25)
[2018-01-31] MEDS: AMITRIPTYLINE 25 MG TAB PO SCH (20:25)
[2018-01-31] MEDS: SODIUM CHLORIDE 0.9% 10ML INJ IV SCH (20:26)
[2018-01-31] MEDS: ESCITALOPRAM 20 MG TAB PO SCH (20:26)
[2018-01-31] MEDS: DIVALPROEX ER 250 MG TAB PO SCH (20:26)
[2018-02-01] MEDS: PIPER/TAZO/NS 2.25gm 2.25 GM/50 ML BAG IVPB SCH ×3 (02:06→18:09)
[2018-02-01 06:33] LABS: Albumin 1.9 g/dL (3.4-5.0); Bilirubin Total 0.3 mg/dL (0.2-1.0); Magnesium 1.9 mg/dL (1.8-2.4); Potassium 3.1 mmol/L (3.5-5.1); Protein, Total 7.2 g/dL (6.4-8.2)
[2018-02-01 06:39] LABS: Protime INR 8.21
[2018-02-01 06:47] LABS: Urine Protein/Creatinine Ratio 1.79 ratio (<0.15)
[2018-02-01] MEDS: POTASSIUM CL SA 10 MEQ TAB PO SCH (09:16)
[2018-02-01] MEDS: levoFLOXacin 250 MG TAB PO SCH (09:16)
[2018-02-01] MEDS: SEVELAMER CARBONATE 800 MG TABLET PO SCH ×4 (09:16→19:37)
[2018-02-01] MEDS: FUROSEMIDE 40 MG/4 ML VIAL IV SCH ×2 (09:17→21:20)
[2018-02-01] MEDS: SODIUM CHLORIDE 0.9% 10ML INJ IV SCH ×2 (09:17→21:21)
[2018-02-01] MEDS: AMIODARONE HCL 200 MG TAB PO SCH ×2 (09:17→21:20)
[2018-02-01] MEDS: VITAMIN K (ADULT) 10 MG/ML SQ SCH (09:23)
--- NOTE | 2018-02-01 12:26 | P.PN ---
Subjective Date of Service: 02/01/18 Chief Complaint: Multiple ulcers in a DVT no new complaints, lying in bed Physical Examination - Vital Signs Temperature: 97.6 F Blood Pressure: 132/88 Pulse: 94 Respirations: 18 Pulse Ox (%): 7 - Physical Exam General: Alert, In no apparent distress HEENT: Atraumatic, PERRLA, EOMI Neck: Supple, JVD not distended Respiratory: Clear to auscultation bilaterally, Normal air movement Cardiovascular: Regular rate/rhythm, Normal S1 S2 Gastrointestinal: Normal bowel sounds, No tenderness Musculoskeletal: No tenderness Integumentary: Erythema, Other (multiple crusted wounds b/l arms and ingual areas ) Neurological: Normal speech, Normal tone, Normal affect Lymphatics: No axilla or inguinal lymphadenopathy - Studies Laboratory Data (last 24 hrs) 02/01/18 05:45: PT 99.0 H, INR 8.21 H* 02/01/18 05:45: Sodium 140, Potassium 3.1 L, BUN 28 H, Creatinine 2.60 H, Glucose 80, Magnesium 1.9 D, Total Bilirubin 0.3, AST 18, ALT 9 L, Alkaline Phosphatase 77 01/31/18 13:34: PT 95.5 H, INR 7.93 H* 01/31/18 12:17: PT 90.7 H, INR 7.53 H* Microbiology Data (last 24 hrs): 01/29/18 16:46 Catheter Tip - Left Neck Culture & Sensitivity - Final Medications List Reviewed: Yes Assessment And Plan - Current Problems (Diagnosis) (1) Infection of wound due to methicillin resistant Staphylococcus aureus (MRSA) Current Visit: Yes Status: Acute (2) SUSAN (acute kidney injury) Onset Date: 01/25/18 Current Visit: Yes Status: Acute (3) DVT (deep venous thrombosis) Onset Date: 01/25/18 Current Visit: Yes Status: Acute Qualifiers: DVT location: lower extremity Affected thrombotic vein of extremity: unspecified vein of extremity Chronicity: chronic Laterality: bilateral Qualified Code(s): I82.503 - Chronic embolism and thrombosis of unspecified deep veins of lower extremity, bilateral (4) Empyema Onset Date: 01/25/18 Current Visit: Yes Status: Chronic (5) Wound infection Current Visit: Yes Status: Acute - Plan --Cont Zosyn( last day 02/09) --Renal is imroving, cont monitor --Vit K 10mg today for INR>8, 2 U FFP --Cont pain meds
--- NOTE | 2018-02-01 13:54 | RAD REPORT ---
EXAM DESCRIPTION: RAD - Chest Single View - 02/01/2018 1:46 pm CLINICAL HISTORY: COPD Chest pain. COMPARISON: Chest Single View dated 01/29/2018; Chest Single View dated 12/27/2017; CHEST SINGLE VIEW dated 12/29/2014; CHEST SINGLE VIEW dated 06/28/2013 FINDINGS: Portable technique limits examination quality. A hazy appearance to the left lung is identified with a small left pleural effusion noted, favored as ymmetric pulmonary edema. The heart is normal in size. No displaced fractures.Right-sided PICC line h as tip in the SVC.
[2018-02-01] MEDS ORDERED: NA CHLORIDE 0.9% 500 ML IV ONE (15:00)
[2018-02-01] MEDS ORDERED: NA CHLORIDE 0.9% 500 ML ONE (15:48)
[2018-02-01] MEDS: COLLAGENASE 30 GM OINTMENT TOP SCH (17:45)
--- NOTE | 2018-02-01 18:54 | PN ---
Date of Progress Note: 02/01/2018 Subjective: The patient doing better. Still sleepy. No nausea. No vomiting. Physical Examination: Vital Signs: When I saw the patient, blood pressure of 132/88, pulse of 94, afebrile. Chest: Decreased entry bilateral base. Heart: S1, S2. Regular. Abdomen: Soft, nontender. Extremities: Trace edema. Laboratory Data: H and H 8.5/25.5. Sodium 140, potassium 3.1, bicarb 34, BUN 28, creatinine 2.6, ca lcium 8.9, magnesium 1.9. Medications: The patient on include: 1.IV iron. 2.Levaquin 250. 3.Zosyn 2.25. 4.Coumadin. 5.Amiodarone. 6.Alprazolam. 7.Amitriptyline. 8.Citalopram. 9.Ensure. 10.Lasix 40 b.i.d. 11.Renvela. 12.KCl 20 daily. Assessment And Plan: 1.Acute kidney injury secondary to toxic acute tubular necrosis, poor perfusion acute tubular necros is. Continue to recover. Continue diuresis. We will go ahead and get a chest x-ray for better eval uation for her fluid status and we will follow up. 2.Hypertension, controlled optimal. Continue current medication. 3.Iron deficiency anemia. Continue supplement. 4.Secondary hyperparathyroidism, controlled on Renvela. 5.Empyema. Continue current antibiotic. 6.Look to me more sleepy. I am going to go ahead and DC amitriptyline. We will follow up. SAM Voice ID: [id number] Report ID: [id number]
--- NOTE | 2018-02-01 18:55 | PN ---
Subjective: The patient lying in bed. No new acute event except having a fall while trying to get u p to go to the closet. Objective: Vital Signs: Temperature 97, pulse 94, respiration 18, blood pressure 130/80. Lungs: Clear to auscultation. Heart: S1, S2. Regular. Abdomen: Soft, nontender. Bowel sounds positive. Extremity: Wounds noted on left groin area with slough. Right groin wound improving. No new change s in other wounds. Laboratory Data: Shows WBC 14,800, hemoglobin 8.5, platelets 514. Chemistry shows sodium 140, potas sium 3.1, chloride 100, bicarb 34, BUN 28, creatinine 2.6, glucose is 80. Medications: Current antibiotic includes Zosyn. Assessment And Plan: Bilateral groin wound. Recommend starting Santyl to the left groin wound. Con tinue Xeroform to the right groin. Continue other medication and Zosyn. We will follow the patient closely. Leukocytosis, status post respiratory failure, and renal failure. We will follow the patie nt closely. NF/MODL Voice ID: [id number] Report ID: [id number]
[2018-02-01] MEDS: DIVALPROEX ER 250 MG TAB PO SCH (21:20)
[2018-02-01] MEDS: ALPRAZOLAM 1 MG TABLET PO SCH (21:21)
[2018-02-01] MEDS: MORPHINE 4 MG/ML SYR IV PRN (21:21)
[2018-02-01] MEDS: JUVEN PACKET PO SCH (21:24)
[2018-02-01] MEDS: ENSURE HIGH PROTEIN 237 ML CAN PO SCH (21:24)
[2018-02-01] MEDS: ESCITALOPRAM 20 MG TAB PO SCH (21:27)
--- NOTE | 2018-02-01 21:38 | RAD REPORT ---
EXAM DESCRIPTION: RAD - Lumbar Spine 3 Views - 02/01/2018 9:25 pm CLINICAL HISTORY: Back pain COMPARISON: January 2017 FINDINGS: A three-view lumbar spine examination was performed. Lumbar bodies are normal in height an d alignment. No fracture or acute bony process seen. No disc space narrowing. Mild facet joint degene rative change. No pars defects identified. IMPRESSION: Negative lumbar spine examination for acute finding. No significant change from January 2017.
[2018-02-02] MEDS: PIPER/TAZO/NS 2.25gm 2.25 GM/50 ML BAG IVPB SCH ×3 (00:50→17:02)
[2018-02-02 01:24] LABS: Protime INR 2.27
[2018-02-02 06:11] LABS: Protime INR 2.15
[2018-02-02 06:26] LABS: Bilirubin Total 0.4 mg/dL (0.2-1.0); Magnesium 1.9 mg/dL (1.8-2.4)
[2018-02-02] MEDS: MORPHINE 4 MG/ML SYR IV PRN ×3 (06:40→17:51)
[2018-02-02 06:47] LABS: Potassium 2.9 mmol/L (3.5-5.1)
[2018-02-02] MEDS ORDERED: KCL 20 MEQ/100 mL IVPB 20 MEQ/100 ML BAG IV SCH (08:00)
[2018-02-02] MEDS: SEVELAMER CARBONATE 800 MG TABLET PO SCH ×3 (08:00→16:55)
[2018-02-02] MEDS: levoFLOXacin 250 MG TAB PO SCH (08:51)
[2018-02-02] MEDS: POTASSIUM CL SA 10 MEQ TAB PO SCH (08:54)
[2018-02-02] MEDS: AMIODARONE HCL 200 MG TAB PO SCH ×2 (08:54→22:35)
[2018-02-02] MEDS: FUROSEMIDE 40 MG/4 ML VIAL IV SCH ×2 (08:55→22:37)
[2018-02-02] MEDS: VITAMIN K (ADULT) 10 MG/ML SQ SCH (08:55)
[2018-02-02] MEDS: KCL 20 MEQ/100 mL IVPB 20 MEQ/100 ML BAG IV SCH ×3 (08:55→14:54)
[2018-02-02] MEDS: JUVEN PACKET PO SCH ×2 (09:00→22:38)
[2018-02-02] MEDS: COLLAGENASE 30 GM OINTMENT TOP SCH (09:00)
[2018-02-02] MEDS: ENSURE HIGH PROTEIN 237 ML CAN PO SCH ×2 (09:00→22:39)
[2018-02-02] MEDS: SODIUM CHLORIDE 0.9% 10ML INJ IV SCH ×2 (09:00→22:38)
--- NOTE | 2018-02-02 14:51 | P.PN ---
Subjective Date of Service: 02/02/18 Chief Complaint: Multiple ulcers in a DVT Patient seen and examined at bedside with RN. Chart reviewed. Case discussed with infectious disease doctor. Patient yesterday was lethargic and somnolent was found to be taking Xanax in her room. Prescription medications were taken and locked up at the nurses station. This morning patient is much more alert and oriented. Has no complaints to offer and states that she feels much better than before. Currently working with physical therapy. Review of Systems General: As per HPI Physical Examination - Vital Signs Temperature: 97.4 F Blood Pressure: 127/73 Pulse: 96 Respirations: 18 Pulse Ox (%): 97 - Physical Exam General: Alert, In no apparent distress, Oriented x3 HEENT: Atraumatic, PERRLA, EOMI Neck: Supple, JVD not distended Respiratory: Normal air movement, Rhonchi/gurgles Cardiovascular: Regular rate/rhythm, Normal S1 S2 Gastrointestinal: Normal bowel sounds, Soft and benign, Non-distended, No tenderness Musculoskeletal: No tenderness Integumentary: No rashes Neurological: Normal speech, Normal tone, Normal affect Lymphatics: No axilla or inguinal lymphadenopathy - Studies Laboratory Data (last 24 hrs) 02/02/18 05:50: PT 25.6 H, INR 2.15 02/02/18 05:50: Sodium 141, Potassium 2.9 L*, BUN 26 H, Creatinine 2.40 H, Glucose 71 L, Magnesium 1.9, Total Bilirubin 0.4, AST 20, ALT 10 L, Alkaline Phosphatase 75 02/02/18 01:00: PT 27.0 H, INR 2.27, APTT 40.5 H Medications List Reviewed: Yes Assessment & Plan - Problems (Diagnosis) (1) Wound infection Current Visit: Yes Status: Acute (2) SUSAN (acute kidney injury) Onset Date: 01/25/18 Current Visit: Yes Status: Acute (3) DVT (deep venous thrombosis) Onset Date: 01/25/18 Current Visit: Yes Status: Acute Qualifiers: DVT location: lower extremity Affected thrombotic vein of extremity: unspecified vein of extremity Chronicity: chronic Laterality: bilateral Qualified Code(s): I82.503 - Chronic embolism and thrombosis of unspecified deep veins of lower extremity, bilateral (4) Empyema Onset Date: 07/18/18 Current Visit: Yes Status: Acute (5) Afib Current Visit: Yes Status: Chronic Qualifiers: Atrial fibrillation type: chronic Qualified Code(s): I48.2 - Chronic atrial fibrillation (6) Anemia Current Visit: Yes Status: Acute Qualifiers: Anemia type: due to chronic kidney disease Discharge Plan: Home Plan to discharge in: 24 Hours - Code Status/Comfort Care Code Status Assessed: Yes Critical Care: No Assessment/Plan - Plan Plan: 1, Acute kidney injury, improved. Appreciate Nephrology input. IV fluids. Most likely ATN 2. Acute deep venous thrombosis. We will continue to monitor INR. INR today 3. Empyema, status post decortication at [facility]. Culture growing Acinetobacter baumannii. ID on board. We will continue IV antibiotics until 02/09/2018 and then switch to p.o. Augmentin for the rest of the month. 4.Multiple wound infections including groin, neck, breast, toe, some necrotic eschars. No surgical debridement at this time. Appreciate Dr. Blue's input. Right groin culture from [facility] growing Enterobacter cloacae sensitive to Levaquin. 5.Atrial fibrillation with rapid ventricular response, now in sinus rhythm on Coumadin. Continue amiodarone. 6.Normocytic normochromic anemia. Anemia of chronic disease. Monitor hemoglobin and hematocrit. 7.Severe protein-calorie malnutrition.
[2018-02-02] MEDS: WARFARIN SODIUM 5 MG TAB PO SCH (16:54)
--- NOTE | 2018-02-02 21:49 | PN ---
Date of Progress Note: 02/02/2018 Subjective: The patient doing better. Still weak. The patient was admitted with acute kidney injury secondary to multiorgan failure felt secondary to empyema. Objective: Vital Signs: When I saw the patient, blood pressure of 127/73, pulse of 96, afebrile. Chest: Decreased entry on the left base. Crackles bilateral. Heart: S1, S2. Systolic murmur. Abdomen: Soft, nontender. Extremities: Trace edema. Laboratory Data: WBC 14.8, H and H 8.5/25.5. Sodium 141, potassium 2.9, bicarb 26, BUN 22, creatinine 2.4. GFR of 22. Magnesium 1.9. Current Medications: The patient is on include; 1. Potassium 40 mEq daily. 2. Lasix 40 b.i.d. 3. Alprazolam. 4. Amiodarone. 5. Depakote. 6. Breathing treatment. 7. Levaquin. 8. Coumadin. 9. Renvela. Assessment And Plan: 1. Acute kidney injury secondary to toxic acute tubular necrosis, poor perfusion, acute tubular necrosis. on the recovery, nonoliguric. Still on the wet side. Last dialysis January the . Again, I will keep holding dialysis , continue diuresis. We will monitor. 2. Hypertension. We will utilize the blood pressure for more diuresis. 3. Anemia of iron deficiency status post IV iron. 4. Empyema. Continue current antibiotic. We will follow up with ID. 5. Hypokalemia and hypomagnesemia. We will supplement. Case discussed with the patient, who verbalized understanding. Discussed with anum Gifford. NITIN/DANNA Voice ID: [id number] Report ID: [id number] ELIER
[2018-02-02] MEDS: DIVALPROEX ER 250 MG TAB PO SCH (22:36)
[2018-02-02] MEDS: ALPRAZOLAM 1 MG TABLET PO SCH (22:37)
[2018-02-02] MEDS: ESCITALOPRAM 20 MG TAB PO SCH (22:40)
[2018-02-02] MEDS ORDERED: POTASSIUM 25 MEQ EFFERV TAB PO ONE (23:27)
[2018-02-03] MEDS: PIPER/TAZO/NS 2.25gm 2.25 GM/50 ML BAG IVPB SCH ×3 (00:09→17:49)
[2018-02-03] MEDS: MORPHINE 4 MG/ML SYR IV PRN ×5 (00:20→22:07)
[2018-02-03] MEDS: JUVEN PACKET PO SCH ×2 (09:00→20:41)
[2018-02-03] MEDS: ENSURE HIGH PROTEIN 237 ML CAN PO SCH ×2 (09:00→20:41)
[2018-02-03 09:16] LABS: Protime INR 1.34
[2018-02-03] MEDS ORDERED: POTASSIUM 25 MEQ EFFERV TAB PO ONE (09:25)
[2018-02-03] MEDS: SEVELAMER CARBONATE 800 MG TABLET PO SCH ×3 (09:36→16:15)
[2018-02-03] MEDS: AMIODARONE HCL 200 MG TAB PO SCH ×2 (09:37→20:38)
[2018-02-03] MEDS: POTASSIUM CL SA 10 MEQ TAB PO SCH (09:38)
[2018-02-03] MEDS: levoFLOXacin 250 MG TAB PO SCH (09:39)
[2018-02-03] MEDS: VITAMIN K (ADULT) 10 MG/ML SQ SCH (09:40)
[2018-02-03] MEDS: FUROSEMIDE 40 MG/4 ML VIAL IV SCH ×2 (09:40→20:36)
[2018-02-03] MEDS: SODIUM CHLORIDE 0.9% 10ML INJ IV SCH ×2 (09:50→20:50)
--- NOTE | 2018-02-03 11:32 | P.PN ---
Subjective Date of Service: 02/03/18 Chief Complaint: Multiple ulcers in a DVT Patient seen and examined at bedside with RN. Chart reviewed. Case discussed with infectious disease doctor. Patient on tuesday was lethargic and somnolent was found to be taking Xanax in her room. Prescription medications were taken and locked up at the nurses station. Now patient is much more alert and oriented. Complains of having some hip pain after she had a fall. Is currently working with physical therapy however her therapies limited due to the pain in her back. Review of Systems General: As per HPI Physical Examination - Vital Signs Temperature: 96.9 F Blood Pressure: 108/62 Pulse: 87 Respirations: 18 Pulse Ox (%): 96 - Physical Exam General: Alert, In no apparent distress HEENT: Atraumatic, PERRLA, EOMI Neck: Supple, JVD not distended Respiratory: Clear to auscultation bilaterally, Normal air movement Cardiovascular: Regular rate/rhythm, Normal S1 S2 Gastrointestinal: Normal bowel sounds, No tenderness Musculoskeletal: No tenderness Integumentary: No rashes Neurological: Normal speech, Normal tone, Normal affect Lymphatics: No axilla or inguinal lymphadenopathy - Studies Laboratory Data (last 24 hrs) 02/03/18 04:30: PT 15.9 H, INR 1.34 02/03/18 04:30: Magnesium 1.6 L 02/02/18 19:03: Potassium 3.7 Microbiology Data (last 24 hrs): 01/29/18 11:18 Blood - Blood Aerobic Blood Culture - Final No growth in 5 days. 01/29/18 11:18 Blood - Blood Anaerobic Blood Culture - Final No growth in 5 days. Medications List Reviewed: Yes Assessment & Plan - Problems (Diagnosis) (1) SUSAN (acute kidney injury) Onset Date: 01/25/18 Current Visit: Yes Status: Acute (2) Wound infection Current Visit: Yes Status: Acute (3) DVT (deep venous thrombosis) Onset Date: 01/25/18 Current Visit: Yes Status: Acute Qualifiers: DVT location: lower extremity Affected thrombotic vein of extremity: unspecified vein of extremity Chronicity: chronic Laterality: bilateral Qualified Code(s): I82.503 - Chronic embolism and thrombosis of unspecified deep veins of lower extremity, bilateral (4) Empyema Onset Date: 01/25/18 Current Visit: Yes Status: Acute (5) Afib Current Visit: Yes Status: Chronic Qualifiers: Atrial fibrillation type: chronic Qualified Code(s): I48.2 - Chronic atrial fibrillation (6) Anemia Current Visit: Yes Status: Acute Qualifiers: Anemia type: due to chronic kidney disease Discharge Plan: Home - Code Status/Comfort Care Code Status Assessed: Yes Critical Care: No Assessment & Plan - Problems (Diagnosis) (1) SUSAN (acute kidney injury) Onset Date: 01/25/18 Current Visit: Yes Status: Acute (2) Wound infection Current Visit: Yes Status: Acute (3) DVT (deep venous thrombosis) Onset Date: 01/25/18 Current Visit: Yes Status: Acute Qualifiers: DVT location: lower extremity Affected thrombotic vein of extremity: unspecified vein of extremity Chronicity: chronic Laterality: bilateral Qualified Code(s): I82.503 - Chronic embolism and thrombosis of unspecified deep veins of lower extremity, bilateral (4) Empyema Onset Date: 01/25/18 Current Visit: Yes Status: Acute (5) Afib Current Visit: Yes Status: Chronic Qualifiers: Atrial fibrillation type: chronic Qualified Code(s): I48.2 - Chronic atrial fibrillation (6) Anemia Current Visit: Yes Status: Acute Qualifiers: Anemia type: due to chronic kidney disease - Plan 1, Acute kidney injury, improved. Appreciate Nephrology input. IV fluids. Most likely ATN 2. Acute deep venous thrombosis. We will continue to monitor INR. INR today 2.9 3. Empyema, status post decortication at [facility]. Culture growing Acinetobacter baumannii. ID on board. We will continue IV antibiotics until 02/09/2018 and then switch to p.o. Augmentin for the rest of the month. 4.Multiple wound infections including groin, neck, breast, toe, some necrotic eschars. No surgical debridement at this time. Appreciate Dr. Blue's input. Right groin culture from [facility] growing Enterobacter cloacae sensitive to Levaquin. 5.Atrial fibrillation with rapid ventricular response, now in sinus rhythm on Coumadin. Continue amiodarone. 6.Normocytic normochromic anemia. Anemia of chronic disease. Monitor hemoglobin and hematocrit. 7.Severe protein-calorie malnutrition. DISPO: Pt to work with PT today. pending Clinical improvement. - Advance Directives Does patient have a Living Will: No Does patient have a Durable POA for Healthcare: No - Code Status/Comfort Care Code Status: Full Code
[2018-02-03] MEDS: SOD FERRIC GLUC COMPLX/SUCROSE 250 MG in NA CHLORIDE 0.9% 250 ML IV SCH (15:11)
[2018-02-03] MEDS: WARFARIN SODIUM 5 MG TAB PO SCH (16:15)
[2018-02-03] MEDS: COLLAGENASE 30 GM OINTMENT TOP SCH (18:30)
[2018-02-03] MEDS: ALPRAZOLAM 1 MG TABLET PO SCH (20:34)
[2018-02-03] MEDS: ESCITALOPRAM 20 MG TAB PO SCH (20:35)
[2018-02-03] MEDS: DIVALPROEX ER 250 MG TAB PO SCH (20:35)
[2018-02-04] MEDS: PIPER/TAZO/NS 2.25gm 2.25 GM/50 ML BAG IVPB SCH ×3 (00:01→17:21)
--- NOTE | 2018-02-04 00:28 | PN ---
Date of Progress Note: 02/03/2018 Chief Complaint: Acute kidney injury. History Of Present Illness: Acute kidney injury, nonoliguric, in recovery phase. The patient is com plaining of some generalized weakness. She developed acute kidney injury secondary to multiorgan lavon lure with empyema and ATN. Dialysis on hold. Last dialysis was done on January 17. Review of Systems: Complains of generalized weakness. Denies PND or orthopnea. Physical Examination: Lungs: Clear to auscultation bilaterally. Heart: S1, S2. Abdomen: Soft, benign. Extremities: Trace edema. Laboratory Data: BUN 22, creatinine 2.4, sodium 141, potassium 2.9, bicarbonate 26. Impression And Plan: 1.Acute kidney injury due to acute tubular necrosis with renal hypoperfusion, secondary to sepsis, s eptic shock. The patient is in recovery phase. Continue to monitor renal function. 2.Hypertension. Blood pressure in control. 3.Anemia in chronic kidney disease. There is likely underlying chronic kidney disease in this parti cular patient. Continue to monitor iron level and adjust iron supplementation. 4.Empyema. The is on antibiotics. 5.Hypokalemia, hypomagnesemia, replacement as needed. Monitor renal panel, magnesium, and phosphoru s level. 6.Anemia. Hemoglobin remains stable. The patient at this point does not require blood transfusion. Hemoglobin today is 8.5. 7.Leukocytosis, empyema. Continue antibiotics. 8.Hypokalemia. Replacement was ordered. Potassium level improved from 2.6 to 3.7. Magnesium was 1.6. Monitor magnesium level and adjust replacement. EB/MODL Voice ID: [id number] Report ID: [id number]
[2018-02-04] MEDS: MORPHINE 4 MG/ML SYR IV PRN ×4 (02:33→21:01)
[2018-02-04 06:00] LABS: Absolute Lymphocytes (CBC) 1.9 K/uL (0.7-4.9); Basophils % 0.9 % (0-1.3); MCH 30.2 pg (27.0-35.0); MPV 6.6 fL (7.6-11.3); RBC Red Blood Cell Count 2.73 M/uL (3.86-4.86)
[2018-02-04 06:01] LABS: Protime INR 1.23
[2018-02-04 06:05] LABS: Absolute Neutrophil 7.3 K/uL (1.8-8.0); Eosinophils % 7.4 % (0-4.4); Hematocrit 24.4 % (36.0-45.0); MCV 89.6 fL (80-100)
[2018-02-04 06:08] LABS: Monocytes % 22.5 % (3.3-12.3)
[2018-02-04 06:14] LABS: Bilirubin Total 0.4 mg/dL (0.2-1.0); Potassium 3.9 mmol/L (3.5-5.1); Protein, Total 7.2 g/dL (6.4-8.2)
[2018-02-04] MEDS: COLLAGENASE 30 GM OINTMENT TOP SCH (09:00)
[2018-02-04] MEDS: FUROSEMIDE 40 MG/4 ML VIAL IV SCH (09:00)
[2018-02-04] MEDS: JUVEN PACKET PO SCH ×2 (09:00→20:58)
[2018-02-04] MEDS: ENSURE HIGH PROTEIN 237 ML CAN PO SCH ×2 (09:00→20:58)
[2018-02-04] MEDS: AMIODARONE HCL 200 MG TAB PO SCH ×2 (10:04→20:56)
[2018-02-04] MEDS: SEVELAMER CARBONATE 800 MG TABLET PO SCH ×3 (10:04→17:21)
[2018-02-04] MEDS: POTASSIUM CL SA 10 MEQ TAB PO SCH (10:05)
[2018-02-04] MEDS: levoFLOXacin 250 MG TAB PO SCH (10:06)
[2018-02-04] MEDS: VITAMIN K (ADULT) 10 MG/ML SQ SCH (10:08)
[2018-02-04] MEDS: SODIUM CHLORIDE 0.9% 10ML INJ IV SCH ×2 (10:14→21:01)
--- NOTE | 2018-02-04 12:13 | P.PN ---
Subjective Date of Service: 02/04/18 Chief Complaint: Multiple ulcers in a DVT Patient seen and examined at bedside with RN. Chart reviewed. Case discussed with infectious disease doctor. Patient on tuesday was lethargic and somnolent was found to be taking Xanax in her room. Prescription medications were taken and locked up at the nurses station. Now patient is much more alert and oriented. Complains of having some hip pain after she had a fall. Is currently working with physical therapy however her therapies limited due to the pain in her back. Review of Systems General: As per HPI Physical Examination - Vital Signs Temperature: 97.3 F Blood Pressure: 147/63 Pulse: 101 Respirations: 20 Pulse Ox (%): 91 - Physical Exam General: Alert, In no apparent distress, Oriented x3, Obese HEENT: Atraumatic, PERRLA, EOMI Neck: Supple, JVD not distended Respiratory: Clear to auscultation bilaterally, Normal air movement Cardiovascular: Regular rate/rhythm, Normal S1 S2 Gastrointestinal: Normal bowel sounds, No tenderness Musculoskeletal: No tenderness Integumentary: Skin breakdown, Skin lesion, Tenderness/swelling, Pressure ulcer Neurological: Normal speech, Normal tone, Normal affect Lymphatics: No axilla or inguinal lymphadenopathy - Studies Laboratory Data (last 24 hrs) 02/04/18 05:45: WBC 13.2 H, Hgb 8.2 L, Hct 24.4 L, Plt Count 356 D 02/04/18 05:45: PT 14.5 H, INR 1.23 02/04/18 05:45: Sodium 135 L, Potassium 3.9, BUN 30 H, Creatinine 2.00 H, Glucose 86, Magnesium 2.0, Total Bilirubin 0.4, AST 24, ALT 11 L, Alkaline Phosphatase 83 Microbiology Data (last 24 hrs): 01/29/18 11:18 Blood - Blood Aerobic Blood Culture - Final No growth in 5 days. 01/29/18 11:18 Blood - Blood Anaerobic Blood Culture - Final No growth in 5 days. Medications List Reviewed: Yes Assessment & Plan - Problems (Diagnosis) (1) SUSAN (acute kidney injury) Onset Date: 01/25/18 Current Visit: Yes Status: Acute (2) Wound infection Current Visit: Yes Status: Acute (3) DVT (deep venous thrombosis) Onset Date: 01/25/18 Current Visit: Yes Status: Acute Qualifiers: DVT location: lower extremity Affected thrombotic vein of extremity: unspecified vein of extremity Chronicity: chronic Laterality: bilateral Qualified Code(s): I82.503 - Chronic embolism and thrombosis of unspecified deep veins of lower extremity, bilateral (4) Empyema Onset Date: 01/25/18 Current Visit: Yes Status: Acute (5) Afib Current Visit: Yes Status: Chronic Qualifiers: Atrial fibrillation type: chronic Qualified Code(s): I48.2 - Chronic atrial fibrillation (6) Anemia Current Visit: Yes Status: Acute Qualifiers: Anemia type: due to chronic kidney disease Assessment/Plan - Plan Plan: 1, Acute kidney injury, improved. Appreciate Nephrology input. IV fluids. Most likely ATN 2. Acute deep venous thrombosis. We will continue to monitor INR. INR today 2.9 3. Empyema, status post decortication at [facility]. Culture growing Acinetobacter baumannii. ID on board. We will continue IV antibiotics until 02/09/2018 and then switch to p.o. Augmentin for the rest of the month. 4.Multiple wound infections including groin, neck, breast, toe, some necrotic eschars. No surgical debridement at this time. Appreciate Dr. Blue's input. Right groin culture from [facility] growing Enterobacter cloacae sensitive to Levaquin. 5.Atrial fibrillation with rapid ventricular response, now in sinus rhythm on Coumadin. Continue amiodarone. 6.Normocytic normochromic anemia. Anemia of chronic disease. Monitor hemoglobin and hematocrit. 7.Severe protein-calorie malnutrition. DISPO: Pt to work with PT today. pending Clinical improvement.
--- NOTE | 2018-02-04 16:21 | RAD REPORT ---
EXAM DESCRIPTION: RAD - Foot Left 2 View - 02/04/2018 4:12 pm CLINICAL HISTORY: Osteomyelitis COMPARISON: <Comparisons> FINDINGS: Prominent calcaneal spurs are noted. Mild soft tissue swelling is seen affecting the great toe. No radiographic finding to indicate osteomyelitis. If clinical suspicion persists, MR imaging w ould be more sensitive for early osteomyelitis.
[2018-02-04] MEDS: WARFARIN SODIUM 5 MG TAB PO SCH (17:22)
[2018-02-04] MEDS ORDERED: PANTOPRAZOLE 40MG TABLET PO ONE (18:48)
[2018-02-04] MEDS: DIVALPROEX ER 250 MG TAB PO SCH (20:55)
[2018-02-04] MEDS: ESCITALOPRAM 20 MG TAB PO SCH (20:55)
[2018-02-04] MEDS: ALPRAZOLAM 1 MG TABLET PO SCH (21:53)
[2018-02-05] MEDS: PIPER/TAZO/NS 2.25gm 2.25 GM/50 ML BAG IVPB SCH ×3 (00:06→17:13)
--- NOTE | 2018-02-05 02:10 | PN ---
Date of Progress Note: 02/04/2018 Chief Complaint: Acute kidney injury. History Of Present Illness: Acute kidney injury, nonoliguric, in recovery phase. The patient develo ped severe acute kidney injury secondary to renal hypoperfusion and shock with multiorgan failure. S he required CVVHD. Subsequently, hemodialysis was initiated and currently the patient has not had di alysis since January 17. Because renal function was gradually improving, the patient was taken off di alysis. Review of Systems: Denies complaints. Physical Examination: Lungs: Clear to auscultation bilaterally. Heart: S1-S2. Abdomen: Soft, benign. Extremities: Edema present in both legs. Laboratory Data: Hemoglobin 8.2, WBC 13.2, platelet count is 356,000. Chemistries show sodium 135, potassium 3.9, chloride 96, CO2 is 36, BUN 30, creatinine 2, calcium 9.2, magnesium 2. Impression And Plan: 1.Acute kidney injury in recovery phase. Creatinine level is gradually improving. 2.Hypokalemia. Potassium level was 2.9, after replacement improved to 3.9. 3.Hypertension. Blood pressure controlled. Monitor blood pressure closely. 4.Metabolic alkalosis. Diuretic dose will be adjusted. Monitor electrolytes. 5.Furosemide currently is 40 mg a day. Continue low-sodium diet, p.o. fluid restriction. EB/MODL Voice ID: [id number] Report ID: [id number]
[2018-02-05] MEDS: MORPHINE 4 MG/ML SYR IV PRN ×4 (04:05→20:35)
[2018-02-05 04:35] LABS: Absolute Lymphocytes (CBC) 1.9 K/uL (0.7-4.9); Absolute Monocytes 2.9 K/uL (0.1-1.3); Absolute Neutrophil 7.4 K/uL (1.8-8.0); Basophils % 0.9 % (0-1.3); Eosinophils % 7.4 % (0-4.4); Hematocrit 25.5 % (36.0-45.0); Lymphocytes % 14.4 % (15.3-44.8); MCH 29.8 pg (27.0-35.0); MCV 89.8 fL (80-100); MPV 6.9 fL (7.6-11.3); Monocytes % 21.6 % (3.3-12.3); RBC Red Blood Cell Count 2.84 M/uL (3.86-4.86)
[2018-02-05 04:49] LABS: Potassium 4.3 mmol/L (3.5-5.1)
[2018-02-05 04:50] LABS: Albumin 2.1 g/dL (3.4-5.0); Bilirubin Total 0.4 mg/dL (0.2-1.0); Protein, Total 7.2 g/dL (6.4-8.2)
[2018-02-05 05:06] LABS: Blood Morphology Comment NOT SEEN (NOT SEEN); Platelet Estimate ADEQ
[2018-02-05] MEDS: JUVEN PACKET PO SCH ×2 (09:00→20:24)
[2018-02-05] MEDS: SODIUM CHLORIDE 0.9% 10ML INJ IV SCH ×2 (09:00→20:29)
[2018-02-05] MEDS: VITAMIN K (ADULT) 10 MG/ML SQ SCH ×2 (09:00→09:06)
[2018-02-05] MEDS: ENSURE HIGH PROTEIN 237 ML CAN PO SCH ×2 (09:00→20:24)
[2018-02-05] MEDS: COLLAGENASE 30 GM OINTMENT TOP SCH (09:00)
[2018-02-05] MEDS: POTASSIUM CL SA 10 MEQ TAB PO SCH (09:04)
[2018-02-05] MEDS: SEVELAMER CARBONATE 800 MG TABLET PO SCH ×3 (09:05→17:12)
[2018-02-05] MEDS: FUROSEMIDE 40 MG TABLET PO SCH (09:05)
[2018-02-05] MEDS: AMIODARONE HCL 200 MG TAB PO SCH ×2 (09:05→20:29)
[2018-02-05] MEDS: levoFLOXacin 250 MG TAB PO SCH (09:06)
--- NOTE | 2018-02-05 11:24 | P.PN ---
Subjective Date of Service: 02/05/18 Chief Complaint: Multiple ulcers in a DVT Patient seen and examined at bedside with RN. Chart reviewed. Case discussed with infectious disease doctor. Patient on tuesday was lethargic and somnolent was found to be taking Xanax in her room. Prescription medications were taken and locked up at the nurses station. Now patient is much more alert and oriented. No complains to offer overnight. Took a shower this AM Review of Systems General: As per HPI Physical Examination - Vital Signs Temperature: 97.9 F Blood Pressure: 132/72 Pulse: 87 Respirations: 18 Pulse Ox (%): 97 - Physical Exam General: Alert, In no apparent distress HEENT: Atraumatic, PERRLA, EOMI Neck: Supple, JVD not distended Respiratory: Clear to auscultation bilaterally, Normal air movement Cardiovascular: Regular rate/rhythm, Normal S1 S2 Gastrointestinal: Normal bowel sounds, No tenderness Musculoskeletal: No tenderness Integumentary: No rashes Neurological: Normal speech, Normal tone, Normal affect Lymphatics: No axilla or inguinal lymphadenopathy - Studies Laboratory Data (last 24 hrs) 02/05/18 04:15: WBC 13.2 H, Hgb 8.5 L, Hct 25.5 L, Plt Count 355 02/05/18 04:15: Sodium 136, Potassium 4.3, BUN 29 H, Creatinine 1.80 H, Glucose 100, Magnesium 2.0, Total Bilirubin 0.4, AST 21, ALT 10 L, Alkaline Phosphatase 84 Medications List Reviewed: Yes Assessment & Plan - Problems (Diagnosis) (1) Wound infection Current Visit: Yes Status: Acute (2) SUSAN (acute kidney injury) Onset Date: 01/25/18 Current Visit: Yes Status: Acute (3) DVT (deep venous thrombosis) Onset Date: 01/25/18 Current Visit: Yes Status: Acute Qualifiers: DVT location: lower extremity Affected thrombotic vein of extremity: unspecified vein of extremity Chronicity: chronic Laterality: bilateral Qualified Code(s): I82.503 - Chronic embolism and thrombosis of unspecified deep veins of lower extremity, bilateral (4) Empyema Onset Date: 01/25/18 Current Visit: Yes Status: Acute (5) Afib Current Visit: Yes Status: Chronic Qualifiers: Atrial fibrillation type: chronic Qualified Code(s): I48.2 - Chronic atrial fibrillation (6) Anemia Current Visit: Yes Status: Acute Qualifiers: Anemia type: due to chronic kidney disease Assessment/Plan - Plan Plan: 1, Acute kidney injury, now improved. Appreciate Nephrology input. 2. Acute deep venous thrombosis. Coumadin restarted now. 3. Empyema, status post decortication at [facility]. Culture growing Acinetobacter baumannii. ID on board. We will continue IV antibiotics until 02/09/2018 and then switch to p.o. Augmentin for the rest of the month. 4.Multiple wound infections including groin, neck, breast, toe, some necrotic eschars. No surgical debridement at this time. Appreciate Dr. Blue's input. Right groin culture from [facility] growing Enterobacter cloacae sensitive to Levaquin. 5.Atrial fibrillation with rapid ventricular response, now in sinus rhythm on Coumadin. Continue amiodarone. 6.Normocytic normochromic anemia. Anemia of chronic disease. Monitor hemoglobin and hematocrit. 7.Severe protein-calorie malnutrition.
[2018-02-05] MEDS: WARFARIN SODIUM 5 MG TAB PO SCH (17:13)
[2018-02-05] MEDS: ESCITALOPRAM 20 MG TAB PO SCH (20:27)
[2018-02-05] MEDS: ALPRAZOLAM 1 MG TABLET PO SCH (20:28)
[2018-02-05] MEDS: DIVALPROEX ER 250 MG TAB PO SCH (20:28)
[2018-02-06] MEDS: PIPER/TAZO/NS 2.25gm 2.25 GM/50 ML BAG IVPB SCH ×3 (01:11→17:00)
[2018-02-06] MEDS: MORPHINE 4 MG/ML SYR IV PRN ×6 (01:20→23:37)
--- NOTE | 2018-02-06 04:19 | PN ---
Date of Progress Note: 02/05/2018 Chief Complaint: Acute kidney injury. History Of Present Illness: The patient is recovering from severe acute kidney injury secondary to a cute tubular necrosis. She has nonoliguric urine output. The patient developed previously septic sh ock with multiorgan failure, which was leading to severe kidney failure and she required CVVHD. Subs equently, she was switched to hemodialysis. Last hemodialysis was done on January 17, and subsequentl y because renal function was improving, the patient was taken off dialysis. Review of Systems: Denies fever, chills. Physical Examination: Lungs: Clear to auscultation bilaterally. Heart: S1-S2. Abdomen: Soft, benign. Extremities: Slight edema. Laboratory Data: Hemoglobin 8.5, WBC 13.2, platelet count is 355,000. Sodium 136, potassium 4.3, ch loride 97, CO2 of 33, BUN 29, creatinine 1.80, calcium 9.2. Impression And Plan: 1.Acute kidney injury in recovery phase. Continue to monitor electrolytes. Avoid high potassium di et. Monitor daily weight and fluid balance. 2.Hypertension: Blood pressure control. Continue current treatment. 3.Mild fluid overload. The patient is on diuretic. Continue low- sodium diet and p.o. fluid restriction. Metabolic alkalosis related to diuretics. Medication dose w as adjusted. SEVEN/DANNA Voice ID: [id number] Report ID: [id number]
[2018-02-06 05:26] LABS: Absolute Lymphocytes (CBC) 2.1 K/uL (0.7-4.9); Absolute Monocytes 2.7 K/uL (0.1-1.3); Absolute Neutrophil 6.5 K/uL (1.8-8.0); Basophils % 0.7 % (0-1.3); Eosinophils % 9.1 % (0-4.4); Hematocrit 24.7 % (36.0-45.0); Lymphocytes % 16.5 % (15.3-44.8); MCH 30.4 pg (27.0-35.0); MCV 90.1 fL (80-100); Monocytes % 21.5 % (3.3-12.3); RBC Red Blood Cell Count 2.74 M/uL (3.86-4.86)
[2018-02-06 05:47] LABS: Bilirubin Total 0.3 mg/dL (0.2-1.0); Potassium 4.1 mmol/L (3.5-5.1)
[2018-02-06] MEDS: ENSURE HIGH PROTEIN 237 ML CAN PO SCH ×2 (09:00→20:51)
[2018-02-06] MEDS: JUVEN PACKET PO SCH ×2 (09:00→20:51)
[2018-02-06] MEDS: SODIUM CHLORIDE 0.9% 10ML INJ IV SCH ×2 (09:00→20:50)
[2018-02-06] MEDS: COLLAGENASE 30 GM OINTMENT TOP SCH (09:00)
[2018-02-06] MEDS: SEVELAMER CARBONATE 800 MG TABLET PO SCH ×3 (09:09→17:22)
[2018-02-06] MEDS: levoFLOXacin 250 MG TAB PO SCH (09:10)
[2018-02-06] MEDS: FUROSEMIDE 40 MG TABLET PO SCH (09:10)
[2018-02-06] MEDS: AMIODARONE HCL 200 MG TAB PO SCH ×2 (09:10→20:49)
[2018-02-06] MEDS: POTASSIUM CL SA 10 MEQ TAB PO SCH (09:10)
[2018-02-06] MEDS: PANTOPRAZOLE 40MG TABLET PO SCH (10:32)
[2018-02-06 11:35] LABS: Protime INR 1.09
--- NOTE | 2018-02-06 11:55 | PN ---
Date of Progress Note: 02/06/2018 Subjective: The patient is seen and examined. Chart reviewed and case discussed with RN. The patie nt states that she is feeling significantly better or stronger. She has been able to get up and move around. Refused PICC line yesterday. States that she did not want it. Review of Systems: Negative except as above. Medications: List reviewed. Physical Examination: Vital Signs: Temperature 97.2, heart rate 83, blood pressure 103/66, respirations 18, O2 94% on 2 L via nasal cannula. General: Awake, alert, oriented x3, not in any acute distress. Morbidly obese female. CV: S1, S2. No murmurs. Respiratory: Moving air well bilaterally. No wheezing. Gastrointestinal: Abdomen is soft, nontender, nondistended. Positive bowel sounds. Extremities: No clubbing, cyanosis, edema. Neurologic: Nonfocal. Skin: The patient has necrotic eschar on right anterior arm. Also has wound bilateral groin with st itches and right neck also with stitches. Laboratory Data: Sodium 135, potassium 4.1, chloride 96, CO2 35, BUN 31, creatinine 1.8, glucose 101 , calcium 9.1, albumin 2. INR pending. WBC 12.5, H and H 8.3 and 24.7, platelets 332, neutrophils 5 5%. Blood cultures, no growth to date. Catheter tip culture, skin сергей. Assessment And Plan: 1.Wound infection. We will continue with IV antibiotics. Stitches need to come out from the groin wounds. 2.Acute deep venous thrombosis. Coumadin has been resumed; however, INR is pending today. 3.Acute kidney injury, improved, off dialysis. 4.Empyema status post decortication at [facility]. Culture grew out Acinetobacter baumanni i. Six weeks of antibiotics will be completed on 02/09/2018. Switched over to Augmentin for the ainder of February, and appreciate ID input. 5.Multiple wound infections including groin, neck, breast, toe with necrotic eschar. Dr. Blue on board. No surgical debridement at this time. Right groin culture is showing Enterobacter cloacae f rom [facility]. 6.Atrial fibrillation with rapid ventricular response, now sinus rhythm. Continue Coumadin. 7.Normocytic normochromic anemia, anemia of chronic disease. We will monitor H and H. 8.Severe protein-calorie malnutrition. Albumin is 2. 9.Morbid obesity. /DANNA Voice ID: [id number] Report ID: [id number]
[2018-02-06] MEDS: SOD FERRIC GLUC COMPLX/SUCROSE 250 MG in NA CHLORIDE 0.9% 250 ML IV SCH (15:22)
[2018-02-06] MEDS ORDERED: WARFARIN SODIUM 2 MG TAB PO ONE (17:00)
[2018-02-06] MEDS: WARFARIN SODIUM 5 MG TAB PO SCH (17:22)
[2018-02-06] MEDS: ALPRAZOLAM 1 MG TABLET PO SCH (20:49)
[2018-02-06] MEDS: DIVALPROEX ER 250 MG TAB PO SCH (20:49)
[2018-02-06] MEDS: ESCITALOPRAM 20 MG TAB PO SCH (20:50)
--- NOTE | 2018-02-06 22:36 | PN ---
Subjective: Patient lying in bed. No new acute event. Chart reviewed. Objective: Vital Signs: Reviewed. Lungs: Clear to auscultation. Heart: S1, S2. Regular. No murmur. No gallop. Abdomen: Soft, nontender. Bowel sounds present. Extremities: Groin area wound noted with slough and some stitches in place. Laboratory Data: WBC going down 12,500, hemoglobin 8.3, platelets 332. Chemistry, sodium 135, potas sium 4.1, chloride 96, bicarb 35, BUN 31, creatinine 1.8, glucose 101. Assessment And Plan: Current antibiotic include Zosyn and Levaquin. Continue wound care and support christiano care. We will follow patient as needed. NF/MODL Voice ID: [id number] Report ID: [id number]
[2018-02-07] MEDS: PIPER/TAZO/NS 2.25gm 2.25 GM/50 ML BAG IVPB SCH ×2 (00:41→08:15)
[2018-02-07] MEDS: MORPHINE 4 MG/ML SYR IV PRN ×4 (04:16→18:52)
--- NOTE | 2018-02-07 04:18 | PN ---
Date of Progress Note: 02/06/2018 Chief Complaint: Acute kidney injury in recovery phase. History Of Present Illness: The patient previously was CVVHD and subsequently conventional hemodialy sis for acute kidney injury due to acute tubular necrosis. The patient was treated for severe sepsis and septic shock, developed multiorgan failure including severe acute kidney injury. Dialysis is on hold. Last dialysis was on January 17. Review of Systems: Denies chest pain, palpitation, syncope. Physical Examination: Lungs: Clear to auscultation bilaterally. Heart: S1, S2. Abdomen: Soft, benign, nontender. Extremities: Edema is present in both legs. Laboratory Data: BUN 29, creatinine 1.8, hemoglobin is 8.5. Acute kidney injury in recovery phase. Monitor electrolytes daily. Continue adequate fluid hydration and avoid nonsteroidal anti-inflammat ory medication. Impression And Plan: 1.Hypertension, blood pressure in acceptable control. 2.Anemia. Monitor hemoglobin level and adjust NEELAM as needed. 3.Lower extremity edema. Continue low-sodium diet and use low diuretic as needed for edema control. SEVEN/DANNA Voice ID: [id number] Report ID: [id number]
[2018-02-07] MEDS: PANTOPRAZOLE 40MG TABLET PO SCH (05:31)
[2018-02-07 06:16] LABS: Protime INR 1.13
[2018-02-07 06:20] LABS: Absolute Lymphocytes (CBC) 1.6 K/uL (0.7-4.9); Absolute Monocytes 2.9 K/uL (0.1-1.3); Basophils % 0.7 % (0-1.3); Eosinophils % 9.2 % (0-4.4); Hematocrit 25.4 % (36.0-45.0); Lymphocytes % 12.6 % (15.3-44.8); MCH 30.5 pg (27.0-35.0); MCV 90.3 fL (80-100); Monocytes % 22.8 % (3.3-12.3); RBC Red Blood Cell Count 2.82 M/uL (3.86-4.86)
[2018-02-07 06:27] LABS: Potassium 4.2 mmol/L (3.5-5.1)
[2018-02-07] MEDS: AMIODARONE HCL 200 MG TAB PO SCH ×2 (08:13→20:34)
[2018-02-07] MEDS: FUROSEMIDE 40 MG TABLET PO SCH (08:13)
[2018-02-07] MEDS: levoFLOXacin 250 MG TAB PO SCH (08:14)
[2018-02-07] MEDS: POTASSIUM CL SA 10 MEQ TAB PO SCH (08:14)
[2018-02-07] MEDS: SEVELAMER CARBONATE 800 MG TABLET PO SCH ×3 (08:14→18:36)
[2018-02-07] MEDS: SODIUM CHLORIDE 0.9% 10ML INJ IV SCH ×2 (08:16→20:37)
--- NOTE | 2018-02-07 14:55 | PN ---
Date of Progress Note: 02/07/2018 Subjective: The patient is seen and examined. Chart reviewed and case discussed with RN. The patie nt denies any knee pain. Case discussed with Dr. Blue, who will be removing the stitches today. Review of Systems: Negative except as above. Medications: List reviewed. Physical Examination: Vital Signs: Temperature 97, heart rate 90, blood pressure 91/49, respirations 18, O2 95% on 2 L via nasal cannula. General: Awake, alert, oriented x3, no acute distress. Obese, BMI 39. CV: S1, S2. No murmurs. Peripheral pulses present. Respiratory: Moving air well bilaterally. No wheezing. Gastrointestinal: Abdomen is soft, nontender, nondistended. Positive bowel sounds. Extremities: No clubbing, cyanosis, edema. Skin: The patient has multiple wounds including bilateral inguinal wounds, eschar on the right forea rm. Neurologic: Nonfocal. Laboratory Data: Sodium 135, potassium 4.2, chloride 99, CO2 31, BUN 28, creatinine 1.6, glucose 99, calcium 9.1. WBC 12.9, H and H 8.6 and 25.4, platelets 327, neutrophils 54%. Blood cultures, no gr owth to date. Catheter-tip culture, no growth. Assessment And Plan: A 47-year-old female with: 1.Wound infection. Continue Zosyn and Levaquin. We will have stitches removed today from the groin bilaterally. The patient has infection in the groin, neck and eschar on the left arm. Right groin cultures from [facility] growing Enterobacter cloacae, sensitive to Levaquin. 2.Empyema status post decortication at [facility]. Sputum culture showing Acinetobacter ba umannii. IV antibiotics to be completed on 02/09/2018 for a total of 6 weeks. We will switch over t o Augmentin or other oral antibiotic upon discharge. 3.Acute kidney injury. Creatinine is improving. The patient is now off dialysis. 4.Acute deep venous thrombosis. INR subtherapeutic. Coumadin dose was adjusted yesterday. INR is 1.13. We will continue to monitor. 5.Atrial fibrillation with rapid ventricular response, now sinus rhythm. Continue amiodarone. The patient is on Coumadin. 6.Normocytic normochromic anemia and anemia of chronic disease. Monitor H and H. Stable. 7.Severe protein-calorie malnutrition. Albumin is 2. 8.Morbid obesity. SA/MODL Voice ID: [id number] Report ID: [id number]
--- NOTE | 2018-02-07 15:07 | RAD REPORT ---
EXAM DESCRIPTION: RAD - Chest Single View - 02/07/2018 2:56 pm CLINICAL HISTORY: COPD, shortness of breath COMPARISON: February 01 TECHNIQUE: AP portable chest image was obtained 1446 hours . FINDINGS: Left base pleural and parenchymal opacification are similar to the February 01 study. No acute failure findings. No new or progressive right lung field finding an the left up upper lung field rem ains clear. Heart and vasculature are normal. No pneumothorax. No right-sided pleural effusion seen. No gross bony abnormality seen. No acute aortic findings suspected. IMPRESSION: Left base infiltrate and/ or atelectasis with pleural effusion. Left base findings are similar to February 01 imaging.
[2018-02-07] MEDS: ENSURE HIGH PROTEIN 237 ML CAN PO SCH ×2 (15:46→20:36)
[2018-02-07] MEDS: JUVEN PACKET PO SCH ×2 (15:46→20:36)
[2018-02-07] MEDS: COLLAGENASE 30 GM OINTMENT TOP SCH (15:46)
--- NOTE | 2018-02-07 17:41 | P.PN ---
Date of Service: 02/07/18 S: The patient has no new specific complaints, Apart from feeling extremely tied. Not much of an appetite. O: Groin wounds are much improved, still has some necrotic debris. Sutures were removed from both groins bilaterally. Neck suture was removed. A: Patient is surgically stable for more wound point of view. Ongoing outpatient care for these. P: Surgically stable, can be followed as an outpatient at the wound center, or have my office regarding her wounds when she is discharged.
--- NOTE | 2018-02-07 18:34 | PN ---
Date of Progress Note: 02/07/2018 Subjective: The patient doing well. Had good response on diuresis. Status post acute kidney injury recovered. Objective: Vital Signs: Blood pressure 116/56, pulse of 86. The patient had urine output of 800. Chest: Clear to auscultation. Heart: S1, S2. Regular. Abdomen: Soft, nontender. Extremities: Trace edema. Laboratory Data: WBC 12.9, H and H 8.6/25.4. Sodium 135, potassium 4.2, bicarb 31, BUN 28, creatini ne 1.6. Medications: Current medications the patient on its include Levaquin 250 daily, Zosyn 2.25 q.8, Coum victoria, amiodarone, amitriptyline, citalopram, Lasix 40 daily, Renvela 1600 t.i.d., KCl. Assessment And Plan: 1.End-stage acute kidney injury secondary to toxic acute tubular necrosis, recovered, resolved. Loo laverne to me started to be in better volume control. We will continue to monitor the patient. 2.Hypertension, controlled, optimal. Continue current medications. 3.Septic shock secondary to empyema. We will follow up with the primary. I am going to go ahead an d adjust the Levaquin to 500 and we will follow up. NITIN/DANNA Voice ID: [id number] Report ID: [id number]
[2018-02-07] MEDS: WARFARIN SODIUM 5 MG TAB PO SCH (18:35)
[2018-02-07] MEDS: PIPER/TAZO/NS 4.5gm 4.5 GM/100 ML BAG IVPB SCH (18:38)
[2018-02-07] MEDS: DIVALPROEX ER 250 MG TAB PO SCH (20:33)
[2018-02-07] MEDS: ESCITALOPRAM 20 MG TAB PO SCH (20:35)
[2018-02-07] MEDS: ALPRAZOLAM 1 MG TABLET PO SCH (20:35)
[2018-02-08] MEDS: PIPER/TAZO/NS 4.5gm 4.5 GM/100 ML BAG IVPB SCH ×3 (00:24→17:26)
[2018-02-08] MEDS: MORPHINE 4 MG/ML SYR IV PRN ×2 (00:31→10:25)
[2018-02-08 04:34] LABS: Absolute Monocytes 2.9 K/uL (0.1-1.3); Absolute Neutrophil 6.8 K/uL (1.8-8.0); Basophils % 1.1 % (0-1.3); Eosinophils % 10.1 % (0-4.4); Hematocrit 24.8 % (36.0-45.0); Lymphocytes % 15.3 % (15.3-44.8); MCH 30.5 pg (27.0-35.0); MCV 90.2 fL (80-100); RBC Red Blood Cell Count 2.75 M/uL (3.86-4.86)
[2018-02-08 04:52] LABS: Monocytes % 22.2 % (3.3-12.3)
[2018-02-08 05:05] LABS: Protime INR 1.32
[2018-02-08 05:14] LABS: Phosphorus 4.3 mg/dL (2.5-4.9); Potassium 4.3 mmol/L (3.5-5.1)
[2018-02-08] MEDS: PANTOPRAZOLE 40MG TABLET PO SCH (06:01)
[2018-02-08] MEDS ORDERED: HYDROCODONE/APAP 10/325 TAB PO PRN (06:09)
[2018-02-08] MEDS: POTASSIUM CL SA 10 MEQ TAB PO SCH (08:14)
[2018-02-08] MEDS: SEVELAMER CARBONATE 800 MG TABLET PO SCH ×3 (08:14→17:23)
[2018-02-08] MEDS: levoFLOXacin 500 MG TAB PO SCH (08:15)
[2018-02-08] MEDS: FUROSEMIDE 40 MG TABLET PO SCH (08:15)
[2018-02-08] MEDS: AMIODARONE HCL 200 MG TAB PO SCH ×2 (08:15→20:54)
[2018-02-08] MEDS: COLLAGENASE 30 GM OINTMENT TOP SCH (08:16)
[2018-02-08] MEDS: SODIUM CHLORIDE 0.9% 10ML INJ IV SCH ×2 (08:25→20:55)
[2018-02-08] MEDS: ENSURE HIGH PROTEIN 237 ML CAN PO SCH ×2 (09:50→20:55)
[2018-02-08] MEDS: JUVEN PACKET PO SCH ×2 (09:50→20:55)
--- NOTE | 2018-02-08 13:21 | PN ---
Date of Progress Note: 02/08/2018 Subjective: The patient doing better. No nausea. No vomiting. Physical Examination: Vital Signs: Blood pressure 106/61, pulse of 85. Chest: Clear to auscultation. Heart: S1, S2. Regular. Abdomen: Soft, nontender. Extremity: Trace edema. Laboratory Data: H and H 8.4/24.8. Sodium 135, potassium 4.3, bicarb 32, BUN 29, creatinine 1.6, ca lcium 8.8, phosphor 4.3. Medications: Current medications the patient on its include Lasix 40, Levaquin 500 daily, Zosyn 4.5, Coumadin, amiodarone, citalopram, Renvela 1600, pantoprazole. Assessment And Plan: 1.Acute kidney injury secondary to multiorgan failure, recover look to me still on the wet side. I again go ahead and increase her Lasix to 60 mg. we will continue to monitor the patient. 2.Hypokalemia. Continue supplement. 3.Pneumonia empyema. Continue current antibiotic, dose adjusted. SAM Voice ID: [id number] Report ID: [id number]
--- NOTE | 2018-02-08 13:45 | PN ---
Date of Progress Note: 02/08/2018 Subjective: The patient is seen and examined. Chart reviewed and case discussed with RN and Dr. Mag wiggins. The patient does not have any complaints. Sutures removed from the groin. Neck sutures still in place. Review of Systems: Negative except as above. Medications: List reviewed. Physical Examination: Vital Signs: Temperature 97, heart rate 81, blood pressure 97/52, respirations 18, O2 97% on 2 L via nasal cannula. General: Awake, alert, oriented, not in acute distress. Morbidly obese female. CV: S1, S2. No murmurs. Respiratory: Moving air well bilaterally. No wheezing. Gastrointestinal: Abdomen is soft, nontender, nondistended. Positive bowel sounds. Extremities: No clubbing, cyanosis, edema. Skin: The patient has ulcers on the bilateral groin and neck. Necrotic eschar on right arm and left first toe. Neuro: Nonfocal. Laboratory Data: INR 1.32. Sodium 135, potassium 4.3, chloride 99, CO2 32, BUN 29, creatinine 1.6, glucose is 83, calcium 8.8, phosphorus 4.3, albumin 2. WBC 13.2, H and H 8.4 and 24.8, platelets 324 , neutrophils 51%. Assessment And Plan: A 47-year-old female with: 1.Wound infection, multiple sites including bilateral groin as well as neck and necrotic eschar on t he left arm. Cultures growing Enterobacter cloacae from the right groin. We will continue IV antibi otics. 2.Empyema status post decortication at [facility]. Culture growing Acinetobacter baumannii . IV antibiotics to be completed on 02/09/2018, which will be 6 weeks. We will switch over to oral antibiotics upon discharge. We will touch base with Infectious Disease regarding antibiotic regimen. 3.Acute kidney injury, creatinine improving. No further need for dialysis. 4.Acute deep venous thrombosis. INR still subtherapeutic. Coumadin dose has been adjusted. The pa tient apparently receiving Ensure, which has 30% vitamin K that has been removed from her diet. 5.Atrial fibrillation with rapid ventricular response, currently in sinus rhythm. We will continue amiodarone and Coumadin for stroke prophylaxis. 6.Normocytic normochromic anemia secondary to anemia of chronic disease. Monitor H and H. Stable. 7.Protein-calorie malnutrition. Albumin is 2. Severe. 8.Morbid obesity. Plan: Likely discharge in a.m. We will obtain procalcitonin level. /DANNA Voice ID: [id number] Report ID: [id number]
[2018-02-08] MEDS ORDERED: TRAMADOL HCL 50 MG TAB PO ONE (15:50)
[2018-02-08] MEDS ORDERED: WARFARIN SODIUM 2.5 MG TAB PO ONE (17:00)
[2018-02-08] MEDS: WARFARIN SODIUM 5 MG TAB PO SCH (17:22)
[2018-02-08] MEDS: DIVALPROEX ER 250 MG TAB PO SCH (20:53)
[2018-02-08] MEDS: ESCITALOPRAM 20 MG TAB PO SCH (20:53)
[2018-02-08] MEDS: ALPRAZOLAM 1 MG TABLET PO SCH (20:54)
[2018-02-08] MEDS ORDERED: Morphine 2 MG/2 ML SYR IV PRN (22:16)
[2018-02-09] MEDS: PIPER/TAZO/NS 4.5gm 4.5 GM/100 ML BAG IVPB SCH ×3 (00:16→17:18)
[2018-02-09] MEDS ORDERED: MORPHINE 4 MG/ML SYR ONE (00:17)
[2018-02-09 04:53] LABS: Protime INR 1.53
[2018-02-09 04:54] LABS: Absolute Lymphocytes (CBC) 1.9 K/uL (0.7-4.9); Absolute Neutrophil 6.8 K/uL (1.8-8.0); Basophils % 1.2 % (0-1.3); Eosinophils % 11.2 % (0-4.4); Hematocrit 25.7 % (36.0-45.0); Lymphocytes % 14.2 % (15.3-44.8); MCH 30.5 pg (27.0-35.0); MCV 89.3 fL (80-100); MPV 7.2 fL (7.6-11.3); Monocytes % 22.7 % (3.3-12.3); RBC Red Blood Cell Count 2.88 M/uL (3.86-4.86)
[2018-02-09 05:00] LABS: Potassium 4.4 mmol/L (3.5-5.1)
[2018-02-09 05:46] LABS: Anisocytosis 1+; Blood Morphology Comment NOTED (NOT SEEN); Platelet Estimate ADEQ; Polychromasia 2+
[2018-02-09] MEDS: PANTOPRAZOLE 40MG TABLET PO SCH (06:28)
[2018-02-09] MEDS: JUVEN PACKET PO SCH ×2 (09:00→21:43)
[2018-02-09] MEDS: ENSURE HIGH PROTEIN 237 ML CAN PO SCH ×2 (09:00→21:00)
[2018-02-09] MEDS: MORPHINE 2 MG/ML SYR IV PRN ×3 (09:23→18:57)
[2018-02-09] MEDS: COLLAGENASE 30 GM OINTMENT TOP SCH (09:24)
[2018-02-09] MEDS: SODIUM CHLORIDE 0.9% 10ML INJ IV SCH ×2 (09:25→21:43)
[2018-02-09] MEDS: FUROSEMIDE 40 MG TABLET PO SCH (09:26)
[2018-02-09] MEDS: levoFLOXacin 500 MG TAB PO SCH (09:26)
[2018-02-09] MEDS: AMIODARONE HCL 200 MG TAB PO SCH ×2 (09:37→21:42)
[2018-02-09] MEDS: POTASSIUM CL SA 10 MEQ TAB PO SCH (09:37)
[2018-02-09] MEDS: SEVELAMER CARBONATE 800 MG TABLET PO SCH ×3 (09:38→17:18)
[2018-02-09] MEDS: WARFARIN SODIUM 5 MG TAB PO SCH (17:17)
--- NOTE | 2018-02-09 18:55 | PN ---
Date of Progress Note: 02/09/2018 Subjective: The patient is seen and examined. Chart reviewed and case discussed with RN, Dr. Bal amado, and Dr. Ware. The patient is doing well, but does complain of some pain, asking for pain medica tions. Review of Systems: Negative except as above. Medications: List reviewed. Physical Examination: Vital Signs: Temperature 97, heart rate 90, blood pressure 107/55, respirations 17, O2 93% on room a ir. General: Awake, alert, oriented, in some mild distress due to pain. Morbidly obese female, BMI 39. CV: S1, S2. No murmurs. Regular rate and rhythm. Peripheral pulses present. Respiratory: Moving air well bilaterally. No wheezing. Gastrointestinal: Abdomen is soft, nontender, nondistended. Positive bowel sounds. Extremities: No clubbing, cyanosis, edema. Neurologic: Nonfocal. Skin: The patient has bilateral inguinal fold ulcers, likely the groin ulcers bilaterally. Healing ulcer on the neck as well as some black eschar on the anterior right forearm and first toe on the rig ht. Laboratory Data: Sodium 135, potassium 4.4, chloride 100, CO2 31, BUN 32, creatinine 1.6, glucose 94 , calcium 8.9, phosphorus 4, albumin 2. WBC 13.3, H and H 8.8 and 25.7, platelets 363, neutrophils 5 0%. Blood cultures negative. Assessment And Plan: A 47-year-old female with: 1.Multiple wound infections on the groin, neck. Cultures growing Enterobacter cloacae from the righ t groin. 2.Empyema, status post decortication at [facility]. Culture growing Acinetobacter baumanni i. The patient to complete IV antibiotics today for a total of 6 weeks. We will switch to p.o. anti biotics on discharge. 3.Acute kidney injury. Creatinine improving. We will continue to monitor. 4.Acute deep venous thrombosis. INR improving, currently at 1.5. We will adjust Coumadin dose. 5.Atrial fibrillation with rapid ventricular response, currently in sinus rhythm. Continue amiodaro ne. Coumadin for stroke prophylaxis. 6.Normocytic normochromic anemia secondary to anemia of chronic disease. Monitor H and H. 7.Severe protein-calorie malnutrition. Albumin is 2. 8.Morbid obesity, BMI greater than 40. Plan: Case Management has been consulted to establish possible olivier case for home health care [facility] care. The patient is high risk, does demonstrate ability to change her dressings and says th at she has help. Discussed with Infectious Disease. The patient will continue Augmentin and Levaqui n for another 4 weeks. The patient will complete 6 weeks of IV antibiotics today. Likely plan to di rodrigorsusan in a.m. if continues to improve and has home health set up. /DANNA Voice ID: [id number] Report ID: [id number]
[2018-02-09] MEDS: DIVALPROEX ER 250 MG TAB PO SCH (21:41)
[2018-02-09] MEDS: ESCITALOPRAM 20 MG TAB PO SCH (21:42)
[2018-02-09] MEDS: ALPRAZOLAM 1 MG TABLET PO SCH (21:42)
[2018-02-10] MEDS: PIPER/TAZO/NS 4.5gm 4.5 GM/100 ML BAG IVPB SCH ×4 (00:51→16:37)
--- NOTE | 2018-02-10 01:15 | PN ---
Date of Progress Note: 02/09/2018 Chief Complaint: Acute kidney injury in recovery phase. Subjective: The patient developed severe acute kidney injury in setting of multiorgan failure. The patient was treated with renal replacement therapy, CVVHD. Subsequently, was switched to hemodialysi s. Review of Systems: Denies complaints. Physical Examination: Lungs: Clear to auscultation bilaterally. Heart: S1, S2. Abdomen: Soft, benign. Extremities: Slight edema. Laboratory Data: Hemoglobin 8.8, WBC 13.3, platelet count is 363,000. Sodium 135, potassium 4.4, ch loride 100, CO2 of 31, BUN 32, creatinine 1.6, glucose 94, calcium 8.9, phosphorus 4.0. Impression And Plan: 1.Acute kidney injury in recovery phase. The patient was taken off dialysis. Continue to avoid nep hrotoxic medication. 2.Hypertension. Blood pressure control. 3.Edema. The patient may require diuretic as needed. SEVEN/DANNA Voice ID: [id number] Report ID: [id number]
[2018-02-10] MEDS: MORPHINE 2 MG/ML SYR IV PRN ×4 (05:20→23:20)
[2018-02-10] MEDS: PANTOPRAZOLE 40MG TABLET PO SCH (05:25)
[2018-02-10 06:07] LABS: Absolute Lymphocytes (CBC) 2.2 K/uL (0.7-4.9); Absolute Monocytes 3.7 K/uL (0.1-1.3); Basophils % 1.1 % (0-1.3); Eosinophils % 9.6 % (0-4.4); Lymphocytes % 14.3 % (15.3-44.8); MCH 29.8 pg (27.0-35.0); MCV 88.8 fL (80-100); Monocytes % 23.9 % (3.3-12.3); RBC Red Blood Cell Count 3.15 M/uL (3.86-4.86)
[2018-02-10 06:13] LABS: Albumin 2.1 g/dL (3.4-5.0); Phosphorus 3.6 mg/dL (2.5-4.9); Potassium 4.5 mmol/L (3.5-5.1)
[2018-02-10 08:13] LABS: Anisocytosis 1+; Blood Morphology Comment NOTED (NOT SEEN); Platelet Estimate INCR
[2018-02-10] MEDS: POTASSIUM CL SA 10 MEQ TAB PO SCH (08:28)
[2018-02-10] MEDS: levoFLOXacin 500 MG TAB PO SCH (08:28)
[2018-02-10] MEDS: AMIODARONE HCL 200 MG TAB PO SCH ×2 (08:29→21:58)
[2018-02-10] MEDS: FUROSEMIDE 40 MG TABLET PO SCH (08:29)
[2018-02-10] MEDS: JUVEN PACKET PO SCH ×2 (08:30→21:00)
[2018-02-10] MEDS: SEVELAMER CARBONATE 800 MG TABLET PO SCH ×3 (08:30→16:32)
[2018-02-10] MEDS: SODIUM CHLORIDE 0.9% 10ML INJ IV SCH ×2 (08:30→21:00)
[2018-02-10] MEDS: ENSURE HIGH PROTEIN 237 ML CAN PO SCH ×2 (08:30→21:00)
[2018-02-10 08:51] LABS: Protime INR 2.14
[2018-02-10] MEDS: COLLAGENASE 30 GM OINTMENT TOP SCH (09:42)
[2018-02-10] MEDS ORDERED: TRAMADOL HCL 50 MG TAB PO ONE ×2 (14:35→20:04)
--- NOTE | 2018-02-10 15:56 | DS ---
Date of Discharge: 02/10/2018 Consultants: Dr. Flood and Dr. Elizondo with Nephrology, Dr. Ware with Infectious Disease, Dr. Blue with General Surgery. Procedures: None. Admitting Diagnoses: 1. Acute kidney injury. 2. Deep venous thrombosis. 3. Empyema. 4. Atrial fibrillation with rapid ventricular response. 5. Anemia. Discharge Diagnoses: 1. Acute kidney injury, creatinine improving, off dialysis. 2. Empyema, status post decortication at [facility] with cultures growing Acinetobacter baumannii. Completed IV antibiotics for 6 weeks. Switched over to Augmentin. 3. Multiple wound infections of the groin, neck. Culture from the right groin has Enterobacter cloacae. Sensitive to Levaquin. 4. Deep venous thrombosis. The patient on Coumadin. 5. Atrial fibrillation with rapid ventricular response, now in sinus rhythm, on Coumadin for stroke prophylaxis. 6. Normocytic normochromic anemia secondary to anemia of chronic disease. Monitor H and H. 7. Severe protein-calorie malnutrition. Albumin 2. 8. Morbid obesity, BMI greater than 40. 9. Generalized anxiety disorder, on benzodiazepines. 10. Neuropathy, on gabapentin. Hospital Course: The patient is a 47-year-old female, who was transferred back to [facility] from [facility] after decortication by CT Surgery. The patient was transferred to [facility] from the ER directly, was never admitted to this facility for respiratory failure, empyema. The patient received decortication, had a complicated prolonged hospital course at [facility] with requirements in the ICU, ECMO, dialysis due to kidney failure. The patient also subsequently developed multiple wound infections on the bilateral groin as well as the neck and had black eschar on her arm as well as her first toe on the right foot. After decortication and surgery was completed, the patient was transferred to [facility] due to contractual agreement between [facility] and [facility]. The patient was recommended to have 6 weeks of IV antibiotics. Infectious Disease, Nephrology, and General Surgery were consulted for the wounds, and the patient' s dialysis catheter was removed as she no longer required dialysis. Her kidney function improved and almost back down to normal. Regarding her DVT, she was started on Lovenox and bridged to Coumadin. She did have some coagulopathy, which was corrected and the patient was then therapeutic. The patient was instructed on Coumadin restriction diet. She voiced understanding. Regarding her wounds, the patient was seen by Dr. Blue with Surgery. He did not recommend any debridement at this time, continued with wet-to-dry dressings and Santyl. The patient's cultures from [facility] did grow Enterobacter cloacae, which was sensitive to Levaquin which was initiated. The patient was also seen by Infectious Disease for recommendations. They agreed with 6 weeks total IV antibiotics. Due to the patient's financial status and being unfunded , she was unable to be placed in LTAC or correction facility. Wound care was continued. She was instructed on completing wound care and [facility] was initiated for the patient upon discharge to instruct in wound care and to continue wound care at home. The patient will also be given Santyl complementary for her wounds. The patient otherwise did well. Her blood cultures repeated at [facility] were negative. She did have severe protein- calorie malnutrition and was placed on protein supplementation. Ensure had to be discontinued due to the high level of vitamin K interacting with the Coumadin. The patient's white count somewhat elevated around 12 to 13, which may be her baseline. The patient does have severe infections and still undergoing treatment. The patient is to follow up closely with her Infectious Disease, Dr. Ware for continued wound care as well as with Dr. Blue. She will need eventual debridement of the black eschar on the arm as well as the eschar on the first digit of the right foot. The patient was then cleared for discharge from consultants' standpoint. She was discharged home with home health care with wound care. Medications: As per medication reconciliation list. Complete Augmentin and Levaquin for 4 weeks as per medication reconciliation list. Followup: Follow up with primary care physician, Dr. Blanco. Her appointment is on 02/22/2018 at 11 a.m. Follow up with Dr. Blue, general surgeon in 2 weeks for wound check. Follow up with Dr. Ware, Infectious Disease in 2 weeks. Follow up with bathroom tiling professional, Dr. Flood in 2 weeks. Return to ER for worsening condition. INR check on Tuesday. Coumadin dose to be adjusted by PCP. Diet: Renal diet. Activity: As tolerated. No driving or operating heavy machinery while on benzodiazepines. Total time spent discharging the patient was 46 minutes. Physical Examination: General: Awake, alert, oriented x3, in no acute distress. Obese female, BMI 37. CV: S1, S2. No murmurs. Respiratory: Clear to auscultation bilaterally. No wheezing. Gastrointestinal: Abdomen is soft, nontender, nondistended. Positive bowel sounds. Extremities: No clubbing, cyanosis, or edema. Neurologic: Nonfocal. Skin: Wounds in the right groin and left groin, eschar on the left forearm and first digit of right foot. ADDENDUM: discharge held due to reeval of right groin wound for possible need for surgical debridement HALEY Voice ID: [id number] Report ID: [id number] ELIER
[2018-02-10] MEDS: WARFARIN SODIUM 5 MG TAB PO SCH (16:32)
--- NOTE | 2018-02-10 18:24 | P.PN ---
Date of Service: 02/10/18 Spoke w infectious disease Dr. Ware and he recommends debridement of right groin wound. Dr. Blue felt that it is too deep for debridement due to proximity of femoral vessels. Will cancel discharge and transfer patient for vascular surgery services. case management notified.
--- NOTE | 2018-02-10 19:31 | PN ---
Date of Progress Note: 02/10/2018 Subjective: The patient doing well. No nausea. No vomiting. Still has some shortness of breath. Physical Examination: Vital Signs: When I saw the patient, blood pressure of 132/60, pulse of 88. Chest: Crackles faint, more on the left base. Heart: S1, S2. Regular. Abdomen: Soft. Wound with drainage in the lower abdomen. Extremities: Trace edema. Laboratory Data: WBC 15.6, H and H 9.4/28. Sodium 136, potassium 4.5, bicarb 31, BUN 24, creatinine 1.5. Current Medications: The patient on its include hydrocodone, alprazolam, amiodarone, amitriptyline, Depakote, Lexapro, Lasix 60 daily, Levaquin 500 daily, Zosyn, KCl, and Coumadin. Assessment And Plan: 1.Acute kidney injury secondary to toxic acute tubular necrosis, poor perfusion, acute tubular necro sis, secondary to septic shock, status post dialysis, recovered, resolved. Nonoliguric still, a soledad le bit on the wet side. I am going to go ahead and increase Lasix to 80 mg daily. We will monitor. 2.Hypertension, controlled, optimal. Continue current medications. Increase Lasix. 3.Abdominal wound infection. We will follow up with ID. Continue antibiotic. Follow up with hospsanna rodas. 4.Atrial fibrillation. Continue anticoagulation. 5.Empyema, status post debridement, recovered. NITIN/DANNA Voice ID: [id number] Report ID: [id number]
[2018-02-10] MEDS: ESCITALOPRAM 20 MG TAB PO SCH (21:58)
[2018-02-10] MEDS: DIVALPROEX ER 250 MG TAB PO SCH (21:58)
[2018-02-10] MEDS: ALPRAZOLAM 1 MG TABLET PO SCH (21:58)
[2018-02-11] MEDS: PIPER/TAZO/NS 4.5gm 4.5 GM/100 ML BAG IVPB SCH ×3 (01:41→16:42)
[2018-02-11] MEDS: MORPHINE 2 MG/ML SYR IV PRN ×5 (03:40→20:15)
[2018-02-11] MEDS: PANTOPRAZOLE 40MG TABLET PO SCH (05:51)
[2018-02-11 06:46] LABS: Phosphorus 3.7 mg/dL (2.5-4.9); Potassium 4.3 mmol/L (3.5-5.1)
[2018-02-11 07:13] LABS: Protime INR 2.09
[2018-02-11] MEDS: JUVEN PACKET PO SCH ×2 (09:00→20:06)
[2018-02-11] MEDS: ENSURE HIGH PROTEIN 237 ML CAN PO SCH ×2 (09:00→20:06)
[2018-02-11] MEDS: SODIUM CHLORIDE 0.9% 10ML INJ IV SCH ×2 (09:03→20:06)
[2018-02-11] MEDS: AMIODARONE HCL 200 MG TAB PO SCH ×2 (09:04→20:06)
[2018-02-11] MEDS: POTASSIUM CL SA 10 MEQ TAB PO SCH (09:04)
[2018-02-11] MEDS: levoFLOXacin 500 MG TAB PO SCH (09:05)
[2018-02-11] MEDS: FUROSEMIDE 40 MG TABLET PO SCH (09:13)
[2018-02-11] MEDS: COLLAGENASE 30 GM OINTMENT TOP SCH (09:23)
[2018-02-11] MEDS: WARFARIN SODIUM 5 MG TAB PO SCH (16:42)
--- NOTE | 2018-02-11 17:33 | PN ---
Subjective: Currently, she is lying in bed. She had no issues overnight. She was hoping that she w ill be discharged home but apparently Dr. Ware recommended her to transfer to [facility] and she is being emotionally devastated with that. She is crying. Her cousin is at the bedside supporting her. She has no chest pain. No abdominal pain. No fever or chills overnight. Review of Systems: Otherwise as below. Objective: Vital Signs: Blood pressure 105/71, respiratory rate 18, pulse 103, temperature 97.6. T he patient is alert and oriented x3. Does not look in any distress. HEENT: Atraumatic, normocephalic. PERRLA. Oral mucosa is moist. Neck: Supple. No JVD. No carotid bruits. Chest: Clear to auscultation. The patient has good air entry. Heart: Regular rate and rhythm. S1, S2 normal. No gallop, rub or murmur. Abdomen: Soft, nontender. No masses. No hepatosplenomegaly. Positive bowel sounds. She is obese. Extremities: No clubbing, no cyanosis, no edema. Skin: With bilateral inguinal fold, being ulcer. Healing ulcer on the neck. Black eschar on the an terior right forearm and first toe on the right as before. Laboratory Data: Her CMP showed sodium of 134, chloride 97, BUN of 28, creatinine 1.04, albumin of 2 . Assessment And Plan: 1.Multiple wound infection of the groin and neck. Culture grew enterobacter cloacae from the right groin. The patient need debridement, which is not possible at our facility and will need to transfer the patient to [facility] back for debridement with the presence of vascular surgeon in case a damag e to the femoral artery. 2.History of empyema, status post decortication at [facility] downto. Culture grown Acinetobacter baumannii. The patient to complete IV antibiotics for total of 6 weeks. 3.Acute renal failure. Creatinine continues to improve. We will observe. 4.Acute deep venous thrombosis. She is on Coumadin. Latest INR was 2.09, which is therapeutic. 5.Atrial fibrillation with rapid ventricular response. Currently in sinus rate control. She is on amiodarone. Continue Coumadin for stroke prophylaxis. 6.Normocytic normochromic anemia secondary to anemia of chronic disease. CBC is not done today. We will order tomorrow. 7.Severe protein calorie malnutrition. Encouraged to drink Ensure. 8.Morbid obesity. BMI is larger than 40. Plan is to transfer to [facility], if get accepted today or Tuesday. 9.In terms of , we will probably have to discuss again upon debridement surgery at [facility] and finalized by Infectious Disease there. Plan: As our initial plan was to discharge the patient home on Augmentin and Levaquin for additional 4 weeks but discharge was aborted by Dr. Ware who thought the patient need debridement before disc harge. JAZMINE/MODL Voice ID: [id number] Report ID: [id number]
[2018-02-11] MEDS: DIVALPROEX ER 250 MG TAB PO SCH (20:05)
[2018-02-11] MEDS: ESCITALOPRAM 20 MG TAB PO SCH (20:05)
[2018-02-11] MEDS: ALPRAZOLAM 1 MG TABLET PO SCH (20:06)
--- NOTE | 2018-02-11 21:27 | PN ---
Date of Progress Note: 02/11/2018 Subjective: The patient doing better. No abdominal pain. No nausea. No vomiting. Afebrile. Physical Examination: Vital Signs: Blood pressure 90/53, pulse of 99, afebrile. Chest: Decreased entry bilateral base. Heart: S1, S2. Regular. Abdomen: Soft, nontender. Wound on the right groin. Extremity: Trace edema. Laboratory Data: WBC 15.6, H and H 9.4/28, platelet of 389. Potassium 4.3, bicarb 26, BUN 28, creat inine 1.4, calcium 9, phosphorus 3.6. Medications: Current medications the patient on include Zosyn 4.5, Levaquin 500, Coumadin, amitripty line, alprazolam, citalopram, Lasix 80 daily, Renvela 800 daily, pantoprazole, hydrocodone. Assessment And Plan: 1.Acute kidney injury secondary to toxic acute tubular necrosis, poor perfusion, acute tubular necro sis continue to recover. I again continue current dose of Lasix. 2.Hypertension, controlled, currently on the lower side. I again continue current medication. We w ill monitor the patient. 3.Empyema, status post treatment. 4.Abdominal wound infection. Follow up with ID and Surgery. NITIN/DANNA Voice ID: [id number] Report ID: [id number]
[2018-02-12] MEDS: MORPHINE 2 MG/ML SYR IV PRN ×3 (01:02→09:10)
[2018-02-12] MEDS: PIPER/TAZO/NS 4.5gm 4.5 GM/100 ML BAG IVPB SCH ×3 (01:03→16:01)
[2018-02-12] MEDS: PANTOPRAZOLE 40MG TABLET PO SCH (05:10)
[2018-02-12 05:37] LABS: Absolute Lymphocytes (CBC) 2.3 K/uL (0.7-4.9); Absolute Monocytes 4.5 K/uL (0.1-1.3); Absolute Neutrophil 9.8 K/uL (1.8-8.0); Basophils % 0.6 % (0-1.3); Eosinophils % 5.1 % (0-4.4); Hematocrit 26.9 % (36.0-45.0); Lymphocytes % 13.2 % (15.3-44.8); MCH 31.2 pg (27.0-35.0); MCV 88.6 fL (80-100); MPV 7.2 fL (7.6-11.3); RBC Red Blood Cell Count 3.03 M/uL (3.86-4.86)
[2018-02-12 05:40] LABS: Monocytes % 25.4 % (3.3-12.3)
[2018-02-12 05:45] LABS: Protime INR 2.45
[2018-02-12 06:00] LABS: Bilirubin Total 0.3 mg/dL (0.2-1.0); Phosphorus 4.5 mg/dL (2.5-4.9); Potassium 4.2 mmol/L (3.5-5.1); Protein, Total 7.5 g/dL (6.4-8.2)
[2018-02-12] MEDS: JUVEN PACKET PO SCH ×2 (09:00→20:37)
[2018-02-12] MEDS: ENSURE HIGH PROTEIN 237 ML CAN PO SCH ×2 (09:00→20:37)
[2018-02-12] MEDS: levoFLOXacin 500 MG TAB PO SCH (09:08)
[2018-02-12] MEDS: POTASSIUM CL SA 10 MEQ TAB PO SCH (09:09)
[2018-02-12] MEDS: AMIODARONE HCL 200 MG TAB PO SCH ×2 (09:09→20:35)
[2018-02-12] MEDS: FUROSEMIDE 40 MG TABLET PO SCH (09:09)
[2018-02-12] MEDS: COLLAGENASE 30 GM OINTMENT TOP SCH (09:13)
[2018-02-12] MEDS: SODIUM CHLORIDE 0.9% 10ML INJ IV SCH ×2 (09:19→20:37)
[2018-02-12] MEDS: MORPHINE 4 MG/ML SYR IV PRN ×3 (13:43→22:34)
--- NOTE | 2018-02-12 13:52 | PN ---
Date of Progress Note: 02/12/2018 Subjective: The patient doing better. No pain. No shortness of breath. Physical Examination: Vital Signs: Blood pressure 133/81, pulse of 77, afebrile. Chest: Clear to auscultation. Heart: S1, S2. Systolic murmur. Abdomen: Wound on the groin. Extremities: Trace edema. Laboratory Data: WBC 17.7, H and H 9.5/26.9, and platelets 410. Sodium 132, potassium 4.2, bicarb 3 1, BUN 31, creatinine 1.5, calcium 8.9, phos 4.5. Current Medications: The patient on its include; 1.Lasix 80 mg. 2.Zosyn 4.5. 3.Levaquin 500. 4.Coumadin. 5.Amitriptyline. 6.Amiodarone. 7.Ensure. 8.Pantoprazole. Assessment And Plan: 1.Acute kidney injury secondary to poor perfusion, acute tubular necrosis, toxic acute tubular necro sis secondary to sepsis, recovered. Continue current dose of Lasix. I am going to go ahead and get chest x-ray to evaluate for better the fluid status. 2.Hypertension, controlled, optimal. Continue current medications. 3.Atrial fibrillation. Continue Coumadin. 4.Empyema status post treatment. 5.Abdominal wound and infection. Follow up with primary and ID. NITIN/DANNA Voice ID: [id number] Report ID: [id number]
--- NOTE | 2018-02-12 15:40 | RAD REPORT ---
EXAM DESCRIPTION: Dionte Single View02/12/2018 2:23 pm CLINICAL HISTORY: Shortness of breath COMPARISON: January 2018 FINDINGS: Small bilateral pleural effusions are suspected, left greater than right. Mild bibasilar a telectasis is present. Upper lobes appear clear. The heart is mildly to moderately enlarged IMPRESSION: Small bilateral pleural effusions left greater than right with bibasilar atelectasis
[2018-02-12] MEDS: WARFARIN SODIUM 5 MG TAB PO SCH (16:00)
--- NOTE | 2018-02-12 16:43 | HP ---
Date of Admission: 01/24/2018 Chief Complaint: Currently, the patient is in bed. She is emotionally upset with the fact that she cannot go home and she had to transfer to [facility]. She had no issues overnight. No fevers. No chi lls. No chest pain. No abdominal pain. She has poor appetite. Review of Systems: Otherwise as below. Objective: Vital Signs: Blood pressure 131/76, respiratory rate 20, pulse 91, temperature 97.9. General: The patient is alert and oriented x3. Does not look in distress. HEENT: Atraumatic, normocephalic. PERRLA. Oral mucosa is moist. Neck: Supple. No JVD. No bruits. Chest: Clear to auscultation. Distant breath sounds. Heart: Regular rate and rhythm. S1, S2 normal. No gallop. Abdomen: Soft, nontender. No masses. She is morbidly obese. Active bowel sounds. Extremities: No clubbing, cyanosis, or edema. Skin: The patient with multiple open wounds, especially in the inguinal area with some dressing. Th ere is eschar on the right forearm as before. Laboratory Data: Labs today showed CBC with white blood cells 17.7, hemoglobin 9.5, platelets 410. Chemistry within normal, except for sodium 142, chloride 95, BUN 31, creatinine 1.5, GFR of 37. Assessment And Plan: 1.Multiple wound infection of the groin and neck. Culture grew Enterobacter cloacae from the right groin. The patient need debridement according Dr. Blue, which is not possible at our facility and need vascular surgeon on staff, so transfer to [facility] initiated yesterday, but woul d not have bed available until Tuesday. 2.History of empyema, status post decortication at [facility]. Culture at that time grew Acinetobacter baumannii. The patient completed apparently course of total of 6 weeks of IV ant ibiotic 2 days ago, but now she is currently on Zosyn and Levaquin for the multiple open wounds with infection. 3.Acute renal insufficiency. Creatinine is stable. Nephrology follows the patient closely. Apprec iate their input. Apparently, the patient has acute tubular necrosis with toxic necrosis secondary t o sepsis. 4.Hypertension, well controlled. Continue current medications. 5.Atrial fibrillation, rate controlled. She is on anticoagulation with Coumadin for stroke prophyla xis. 6.Normocytic normochromic anemia secondary to anemia of chronic disease. Hemoglobin stable around 9 .5 since the day before yesterday. 7.Severe protein calorie malnutrition. Encouraged to drink Ensure. 8.Morbid obesity. BMI is very high. Discussed stay active as outpatient. 9.Discharge plan is to transfer the patient to [facility] once she gets accepted for wound debridement in the presence of vascular surgeon. KIMBERLEY Voice ID: [id number]
--- NOTE | 2018-02-12 17:45 | P.PN ---
Date of Service: 02/12/18 S: Patient is comfortable at the moment. No specific complaints. O: Inspection of the groin shows on the right side at their it wound is closing , there is times stringy exudate and necrotic debris. The left side there is an area of central necrosis with some underlying expose fat. A: These areas were debrided at the bedside with 11 blade. There going to require some long-term wound care therapy. 2 patient may be discharged is seen in the [facility] Care [facility] as an outpatient.
[2018-02-12] MEDS: ESCITALOPRAM 20 MG TAB PO SCH (20:35)
[2018-02-12] MEDS: ALPRAZOLAM 1 MG TABLET PO SCH (20:36)
[2018-02-12] MEDS: DIVALPROEX ER 250 MG TAB PO SCH (20:36)
[2018-02-12 22:12] VITALS: O2SAT 94
[2018-02-13] MEDS: PIPER/TAZO/NS 4.5gm 4.5 GM/100 ML BAG IVPB SCH ×2 (00:07→09:45)
[2018-02-13 05:44] VITALS: BMI 38.9
[2018-02-13] MEDS: PANTOPRAZOLE 40MG TABLET PO SCH (05:51)
[2018-02-13] MEDS: MORPHINE 4 MG/ML SYR IV PRN ×3 (05:52→13:31)
[2018-02-13 06:04] LABS: Protime INR 2.79
[2018-02-13] MEDS: ENSURE HIGH PROTEIN 237 ML CAN PO SCH (09:00)
[2018-02-13] MEDS: POTASSIUM CL SA 10 MEQ TAB PO SCH (09:41)
[2018-02-13] MEDS: levoFLOXacin 500 MG TAB PO SCH (09:41)
[2018-02-13] MEDS: AMIODARONE HCL 200 MG TAB PO SCH (09:42)
[2018-02-13] MEDS: FUROSEMIDE 40 MG TABLET PO SCH (09:42)
[2018-02-13] MEDS: JUVEN PACKET PO SCH (09:45)
[2018-02-13] MEDS: COLLAGENASE 30 GM OINTMENT TOP SCH (09:45)
[2018-02-13] MEDS: SODIUM CHLORIDE 0.9% 10ML INJ IV SCH (09:46)
[2018-02-13 12:53] VITALS: BP 99/61; TEMP 97.8
--- NOTE | 2018-02-13 13:14 | P.DS ---
Admission Date: 01/24/18 Discharge Date: 02/13/18 Primary Care Provider: Dr. Blanco; PSYC-Dr. Martin Disposition: DC HOME/HOME HEALTH CARE Discharge Condition: FAIR Reason for Admission: Multiple ulcers in a DVT Consultations: Surgery-[facility]ph[facility]-Dr. Flood Infectious Disease-Dr. Ware - Problems (1) Wound infection Current Visit: Yes Status: Acute (2) Malnutrition Current Visit: Yes Status: Acute Qualifiers: Malnutrition type: protein-calorie malnutrition Protein-calorie malnutrition severity: severe Qualified Code(s): E43 - Unspecified severe protein-calorie malnutrition (3) Anxiety Current Visit: Yes Status: Chronic (4) Neuropathy Current Visit: Yes Status: Chronic (5) SUSAN (acute kidney injury) Onset Date: 01/25/18 Current Visit: Yes Status: Acute (6) Anemia Current Visit: Yes Status: Acute Qualifiers: Anemia type: due to chronic kidney disease Chronic kidney disease stage: stage 3 (moderate) Qualified Code(s): N18.3 - Chronic kidney disease, stage 3 (moderate); D63.1 - Anemia in chronic kidney disease (7) Atrial fibrillation with RVR Current Visit: Yes Status: Acute (8) DVT (deep venous thrombosis) Onset Date: 01/25/18 Current Visit: Yes Status: Acute Qualifiers: DVT location: lower extremity Affected thrombotic vein of extremity: unspecified vein of extremity Chronicity: chronic Laterality: bilateral Qualified Code(s): I82.503 - Chronic embolism and thrombosis of unspecified deep veins of lower extremity, bilateral (9) Empyema Onset Date: 01/25/18 Current Visit: Yes Status: Acute (10) Renal failure Current Visit: Yes Status: Acute Qualifiers: Renal failure chronicity: acute on chronic Chronic kidney disease stage: stage 3 (moderate) Brief History of Present Illness: 47-year-old female who was transferred back to [facility] from [facility] after decortication by cardiothoracic surgery. The patient had originally been transferred from the here to [facility] for respiratory failure and empyema. The patient received decortication complicated with prolonged hospital course at [facility]. Patient also developed kidney failure requiring dialysis. The patient also developed multiple wound infections to the bilateral groin as well as neck and black eschar on her arm, 1st toe on the right foot. After decortication and surgery patient was transferred to [facility] due to contractual agreement. Hospital Course: During the course of her stay was evaluated by infectious disease, nephrology and General surgery. This was to address multiple issues including the wounds. There is also no further need for dialysis as her renal function improved. Dialysis catheter was removed. Surgery evaluated the wounds. No debridement was recommended at this time. Recommendation was to continue with wet to dry dressings and santal. The patient cultures from [facility] did grow enterobacter which was sensitive to Levaquin which wishes initiated in the hospital. Patient seen by infectious disease. Infectious Disease recommends to continue with antibiotic therapy. At discharge patient will continue with Augmentin and Levaquin for 4 more weeks. The patient will be followed up at the wound Care Center or she can follow up with surgery in 1 week to continue her care. director of consulting services was able to arrange for home health at discharge. The patient was not able to go to a long-term acute care facility or snf facility due to her financial status. Patient understands the importance of wound care and follow up. The patient did have severe malnutrition. This will need to be followed as an outpatient. The patient did have a DVT. She had been started on Lovenox then bridge to Coumadin. At discharge she will continue with Coumadin 5 mg daily. Recommendation to recheck INR in 1 week to monitor progress. Further adjustment can be done by her PCP. The patient had atrial fibrillation with RVR. Patient now in normal sinus rhythm. Patient will continue with Coumadin 5 mg daily along with amiodarone 200 mg 1 pill twice daily. Recommendation to recheck INR in 1 week to monitor progress. Patient will need to follow up with cardiology as an outpatient to further monitor and address. Patient has severe anxiety. Patient seen by psychiatry as an outpatient. At discharge she will continue with Depakote 1500 mg at bedtime, Lexapro 30 mg at bedtime, and Xanax 2 mg at bedtime. Further adjustment can be done by her psychiatrist. Patient has GERD. She will continue with Protonix 40 mg daily. Patient had acute renal failure. Patient was seen evaluated by nephrology. Her renal function improved. Dialysis catheter was removed. Recommendations for the patient follow up with nephrology in 1 week to monitor progress. Vital Signs/Physical Exam: Temp Pulse Resp BP Pulse Ox 97.8 F 93 H 18 99/61 90 L 02/13/18 12:00 02/13/18 12:00 02/13/18 12:00 02/13/18 12:00 02/13/18 12:00 General: Alert, In no apparent distress, Oriented x3, Cooperative HEENT: Atraumatic Neck: Supple Respiratory: Clear to auscultation bilaterally, Normal air movement Cardiovascular: Normal pulses, Regular rate/rhythm Gastrointestinal: Normal bowel sounds, Soft and benign, Non-distended, No masses , No rebound, No guarding Integumentary: Other (Chronic open wounds noted to the groin on bilaterally, eschar to the left forearm and 1st digit of the right foot.) Neurological: Normal speech, Normal strength at 5/5 x4 extr, Normal tone, Normal affect Laboratory Data at Discharge: WBC 17.7 K/uL (4.3-10.9) H 02/12/18 05:26 Hgb 9.5 g/dL (12.0-15.0) L 02/12/18 05:26 Hct 26.9 % (36.0-45.0) L 02/12/18 05:26 Plt Count 410 K/uL (152-406) H 02/12/18 05:26 PT 33.3 SECONDS (9.5-12.5) H 02/13/18 05:32 INR 2.79 02/13/18 05:32 APTT 40.5 SECONDS (24.3-36.9) H 02/02/18 01:00 Sodium 132 mmol/L (136-145) L 02/12/18 05:26 Potassium 4.2 mmol/L (3.5-5.1) 02/12/18 05:26 BUN 31 mg/dL (7-18) H 02/12/18 05:26 Creatinine 1.50 mg/dL (0.55-1.3) H 02/12/18 05:26 Glucose 104 mg/dL (74-106) 02/12/18 05:26 Phosphorus 4.5 mg/dL (2.5-4.9) 02/12/18 05:26 Magnesium 2.0 mg/dL (1.8-2.4) 02/05/18 04:15 Total Bilirubin 0.3 mg/dL (0.2-1.0) 02/12/18 05:26 AST 18 U/L (15-37) 02/12/18 05:26 ALT 10 U/L (12-78) L 02/12/18 05:26 Alkaline Phosphatase 90 U/L (45-117) 02/12/18 05:26 Home Medications: ALPRAZolam [Alprazolam] 1 mg OP BID 01/25/18 Divalproex Sodium [Divalproex Sodium ER] 3 tab PO BEDTIME 01/25/18 Gabapentin [Neurontin*] 2 tab PO BID 01/25/18 Ondansetron [Zofran Odt] 8 mg PO Q6HP PRN 01/25/18 Quetiapine Fumarate [Seroquel] 600 mg PO BEDTIME 01/25/18 Amiodarone HCl [Cordarone*] 200 mg PO BID #60 tab 02/10/18 Collagenase [Santyl Ointment*] 1 appl TOP DAILY #1 tube 02/10/18 Escitalopram [Lexapro*] 30 mg PO BEDTIME #60 tab 02/10/18 Furosemide [Lasix*] 40 mg PO DAILY #30 tab 02/10/18 Philipp [Philipp*] 1 pkt PO BID powd.pack 02/10/18 Pantoprazole [Protonix Tab*] 40 mg PO DAILYAC #30 tab 02/10/18 Potassium Oral Tab [Klor-Con 10 mEq Tab*] 20 meq PO DAILY #30 tab 02/10/18 Sevelamer Carbonate [Renvela*] 800 mg PO TIDWM #90 tablet 02/10/18 Warfarin Sodium [Coumadin*] 5 mg PO DAILY 5 PM #30 tab 02/10/18 levoFLOXacin [Levaquin*] 500 mg PO DAILY #30 tab 02/10/18 Amoxicillin/Potassium Clav [Augmentin 500-125 Tablet] 1 each PO BID #56 tablet 02/13/18 New Medications: Amiodarone HCl [Cordarone*] 200 mg PO BID #60 tab Amoxicillin/Potassium Clav [Augmentin 500-125 Tablet] 1 each PO BID #56 tablet Collagenase [Santyl Ointment*] 1 appl TOP DAILY #1 tube Escitalopram [Lexapro*] 30 mg PO BEDTIME #60 tab Furosemide [Lasix*] 40 mg PO DAILY #30 tab levoFLOXacin [Levaquin*] 500 mg PO DAILY #30 tab Pantoprazole [Protonix Tab*] 40 mg PO DAILYAC #30 tab Potassium Oral Tab [Klor-Con 10 mEq Tab*] 20 meq PO DAILY #30 tab Sevelamer Carbonate [Renvela*] 800 mg PO TIDWM #90 tablet Warfarin Sodium [Coumadin*] 5 mg PO DAILY 5 PM #30 tab Patient Discharge Instructions: 1. Patient waiting to follow up with her PCP in 1 week to follow up this hospitalization and continue her care. 2. Patient presented with multiple issues. Patient seen by infectious disease, nephrology and General surgery. Patient has chronic wounds to the bilateral groin area, left forearm and right foot. Debridement done at bedside by surgery performed. Infectious Disease recommends to continue with Levaquin 500 mg daily and Augmentin 500 mg 1 pill twice daily for 4 weeks. The patient will need a follow up at the wound Care or with surgery in 1 week to continue her care. Patient will be given santyl to use. Patient will be given instructions on wound care. Follow up will be required. Home health will be arranged prior to discharge. 3. The patient has severe malnutrition. This will need to be followed as an outpatient. 4. The patient has a DVT. Patient currently on Coumadin. At discharge she will continue with Coumadin 5 mg daily. Recommendation to recheck INR in 1 week to monitor progress. Further adjustment can be done by her PCP. 5. The patient had atrial fibrillation with RVR. Patient now in normal sinus rhythm. Patient will continue with Coumadin 5 mg daily along with amiodarone 200 mg 1 pill twice daily. Recommendation to recheck INR in 1 week to monitor progress. Patient will need to follow up with cardiology as an outpatient to further monitor and address. 6. Patient has severe anxiety. Patient seen by psychiatry as an outpatient. At discharge she will continue with Depakote 1500 mg at bedtime, Lexapro 30 mg at bedtime, and Xanax 2 mg at bedtime. Further adjustment can be done by her psychiatrist. 7. Patient has GERD. She will continue with Protonix 40 mg daily. 8. Patient had acute renal failure. Patient required dialysis. Patient was seen evaluated by nephrology. Her renal function improved and no need for further dialysis is required. Recommendations for the patient follow up with nephrology in 1 week to monitor progress. Diet: Renal Activity: no driving or operating heavy Melon #usemelon while on benzos or narcotics Followup: Chino Blanco MD [ACTIVE - CAN ADMIT] - 02/22/18 11:00 am Edgar Blue MD [ACTIVE - CAN ADMIT] - Time spent managing pt's care (in minutes): 55
--- NOTE | 2018-02-14 00:50 | PN ---
Date of Progress Note: 02/12/2018 Chief Complaint: Acute kidney injury. History Of Present Illness: Acute kidney injury, severe, nonoliguric. The patient required dialysis . The patient was taken off dialysis when the renal function improved and the patient developed jessica re acute tubular necrosis secondary to septic shock and sepsis. The patient has fluid overload and i s tolerating Lasix. Renal function has improved. Creatinine is 1.5 and BUN 31. The patient has bee n off dialysis for at least 3 weeks. Review of Systems: Denies complaints. Denies PND or orthopnea. Physical Examination: Lungs: Clear to auscultation bilaterally. Heart: S1, S2. Abdomen: Soft, benign, and nontender. Extremities: Trace edema. Laboratory Data: Sodium 132, potassium 4.2, bicarbonate 31, BUN 31, creatinine 1.5, calcium 8.9, ned sphorus 4.5, hemoglobin 9.2, platelet count is 410,000. Sodium 132, potassium 4.2, chloride 95, CO2 of 31, BUN 31, creatinine 1.5, glucose 104. Impression And Plan: 1.Acute kidney injury, in a recovery phase. The patient is off dialysis. Continue to avoid nephrot oxic medication. 2.Mild fluid overload, improved. The patient was treated with Lasix. Continue current Lasix dose. Monitor electrolytes. 3.Hypertension, controlled, optimal. 4.Empyema, status post treatment. 5.Abdominal wound and infection. Follow up by primary team and Infectious Disease. EB/MODL Voice ID: [id number] Report ID: [id number]
--- NOTE | 2018-02-14 06:53 | EKG ---
Test Date: 2018-02-10 Test Time: 19:47:35 Mobile Mechanic: RT-O MEASUREMENT RESULTS: Intervals: Rate: 101 VT: 150 QRSD: 84 QT: 324 QTc: 420 [place]: P: 59 VT: 150 QRS: 60 T: 44 INTERPRETIVE STATEMENTS: Sinus tachycardia Possible Left atrial enlargement Borderline ECG Compared to ECG 01/29/2018 02:43:01 Sinus rhythm no longer present T-wave abnormality no longer present Prolonged QT interval no longer present Electronically Signed On 02-14-18 06:52:48 CDT by Eze France
== END 2018-02-13 15:58 | disposition home health service (06) | DRG 682 ==
LOC: 4TH 19:34
PROVIDERS: ADMIT Family Medicine; ATTEND Family Medicine
PROC: 30233K1 Transfusion of Nonautologous Frozen Plasma into Peripheral Vein, Percutaneous Approach (ICD-10-PCS; 2018-02-01)
PROC: 0HDAXZZ Extraction of Inguinal Skin, External Approach (ICD-10-PCS; principal; 2018-02-12)
DX: N17.0 Acute kidney failure with tubular necrosis (principal); L89.153 Pressure ulcer of sacral region, stage 3; E43 Unspecified severe protein-calorie malnutrition; J86.9 Pyothorax without fistula; I82.503 Chronic embolism and thrombosis of unspecified deep veins of lower extremity, bilateral; Z68.41 Body mass index [BMI] 40.0-44.9, adult; E87.3 Alkalosis; I96 Gangrene, not elsewhere classified; I48.91 Unspecified atrial fibrillation; E87.70 Fluid overload, unspecified; N18.3 Chronic kidney disease, stage 3 (moderate); D63.1 Anemia in chronic kidney disease; G62.9 Polyneuropathy, unspecified; I12.9 Hypertensive chronic kidney disease with stage 1 through stage 4 chronic kidney disease, or unspecified chronic kidney disease; B96.89 Other specified bacterial agents as the cause of diseases classified elsewhere; K21.9 Gastro-esophageal reflux disease without esophagitis; S31.104A Unspecified open wound of abdominal wall, left lower quadrant without penetration into peritoneal cavity, initial encounter; S31.103A Unspecified open wound of abdominal wall, right lower quadrant without penetration into peritoneal cavity, initial encounter; E66.01 Morbid (severe) obesity due to excess calories; F41.1 Generalized anxiety disorder; E87.6 Hypokalemia; E83.42 Hypomagnesemia; N25.81 Secondary hyperparathyroidism of renal origin; R79.1 Abnormal coagulation profile; Z16.24 Resistance to multiple antibiotics; E83.39 Other disorders of phosphorus metabolism; E78.5 Hyperlipidemia, unspecified; S11.90XA Unspecified open wound of unspecified part of neck, initial encounter; S91.102A Unspecified open wound of left great toe without damage to nail, initial encounter; F31.9 Bipolar disorder, unspecified; E03.9 Hypothyroidism, unspecified; Z79.2 Long term (current) use of antibiotics; Z79.01 Long term (current) use of anticoagulants; Z88.5 Allergy status to narcotic agent; Z88.8 Allergy status to other drugs, medicaments and biological substances; T81.89XA Other complications of procedures, not elsewhere classified, initial encounter; S61.501A Unspecified open wound of right wrist, initial encounter; X58.XXXA Exposure to other specified factors, initial encounter
CPT/HCPCS: 36415; 71045; 72100; 76770; 80048; 80053; 80069; 82553; 82570; 82607; 82728; 82746; 83520; 83540; 83605; 83735; 83970; 84100; 84132; 84145; 84156; 84165; 84439; 84443; 84466; 85025; 85044; 85610; 85730; 86021; 86038; 86147; 86160; 86225; 86235; 86317; 86430; 86704; 86706; 86900; 86901; 87040; 87070; 87075; 87077; 87184; 87186; 87205; 87340; 87389; 87522; 93005; 94640; 97163; J2270; J2543; J2916; J2997; J3430; J3590; J7030; P9059

== ENCOUNTER 2018-03-21 12:18 | Inpatient (IN) | payer SELFPAY ==
--- OUTSIDE RECORDS SUMMARY | 2018-03-21 12:22 | XMS REPORT | Clinical Summary ---
:1970 Author Organization [facility] Address [address] [place] [address] Phone Care Team Providers Name Role Phone Unavailable Primary Care Provider Unavailable Allergies Active Allergy Reactions Severity Noted Date Comments Hydrocodone-Acetaminophen 12/27/2017 Current Medications Prescription Sig. Disp. Refills Start End Date Status Date gabapentin Take 300 mg by Active (NEURONTIN) 300 MG mouth 2 (two) capsule times daily with breakfast and dinner. ALPRAZolam (XANAX) Take 2 mg by Active 2 MG mouth 2 (two) tabletIndications: times daily. anxiety divalproex Take 1,500 mg by Active (DEPAKOTE) 500 MG mouth nightly. 24 hr tablet famotidine (PEPCID) Take 40 mg by Active 40 MG mouth every night tabletIndications: as needed for Heartburn, Heartburn. Heartburn Prevention levothyroxine Take 50 mcg by Active (SYNTHROID, mouth Every LEVOTHROID) 50 MCG morning on an tabletIndications: empty stomach. hypothyroidism amiodarone Take 1 tablet 0 01/25/20 Active (PACERONE) 200 MG (200 mg total) by 8 19 tablet mouth 2 (two) times daily. aspirin 81 MG Take 1 tablet (81 0 01/26/20 Active chewable tablet mg total) by 8 19 mouth daily. magnesium hydroxide Take 30 mLs by 0 Active (MILK OF MAGNESIA) mouth daily as 8 400 mg/5 mL Susp needed. folic acid Take 1 tablet (1 0 01/26/20 Active (FOLVITE) 1 MG mg total) by 8 19 tablet mouth daily. heparin infusion Inject 150-3,500 100 mL 0 Active 25,000 units in Units/hr 8 dextrose 5% (D5W) intravenously 250 mL (100 continuous. units/mL) ipratropium-albuter Take 3 mLs by 0 01/20/20 Active ol (DUO-NEB) 0.5 nebulization 8 19 mg-3 mg(2.5 mg every 6 (six) base)/3 mL hours for 360 nebulizer solution days. metoprolol Take 1 tablet (25 0 01/25/20 Active (LOPRESSOR) 25 MG mg total) by 8 19 tablet mouth 2 (two) times daily. nystatin Apply topically 2 15 g 0 01/25/20 Active (MYCOSTATIN) (two) times 8 19 100,000 unit/gram daily. powder piperacillin-tazoba Inject 2.25 g 0 Active ctam (ZOSYN) MBP intravenously 8 2.25 g in 100 mL NS every 6 (six) hours. senna-docusate Take 1 tablet by 0 01/25/20 Active (SENOKOT S) 8.6-50 mouth nightly. 8 19 mg per tablet zinc Apply 71 g 0 Active oxide-petrolatum topically 2 (two) 8 (CRITIC-AID) 20-51 times daily. % Pste topical paste QUEtiapine Take by mouth 01/25/20 Discontinued (SEROQUEL) 300 MG nightly. 18 tablet docusate sodium Take 1 capsule 10 capsule 0 02/04/20 (COLACE) 100 MG (100 mg total) by 8 18 capsule mouth daily as needed for Constipation for up to 10 days. povidone-iodine Apply topically 2 480 mL 0 02/01/20 (BETADINE) 10 % (two) times daily 8 18 external solution for 7 days. QUEtiapine Take 1 tablet (50 0 02/24/20 (SEROQUEL) 50 MG mg total) by 8 18 tablet mouth nightly for 30 days. traMADol (ULTRAM) Take 1 tablet (50 30 tablet 0 02/04/20 50 mg tablet mg total) by 8 18 mouth every 12 (twelve) hours as needed for up to 10 days. Max Daily Amount: 100 mg Active Problems Problem Noted Date Acute renal failure with tubular necrosis ([facility]) 01/03/2018 Acute metabolic encephalopathy 01/03/2018 Streptococcus pneumoniae 01/03/2018 Empyema of left pleural space ([facility]) 01/03/2018 Metabolic acidosis 12/28/2017 Acute hypoxemic respiratory failure ([facility]) 12/28/2017 Leukocytosis 12/28/2017 SUSAN (acute kidney injury) ([facility]) 12/28/2017 ARDS (adult respiratory distress syndrome) ([facility]) 12/28/2017 Septic shock ([facility]) 12/27/2017 Acute respiratory failure with hypoxia ([facility]) Acute respiratory insufficiency Postoperative anemia due to [...] Patric Caballero with hypoxia Kristal Luis MD ([facility]);Septic shock Gray, ([facility]);[facility] MD Vlad ([facility]);Multi-organ Nicanor Villalpando failure with heart Imani Garcia MD failure ([facility]);ARDS (adult respiratory distress syndrome) ([facility]);Shock circulatory ([facility]);Shock liver;Leukocytosis, unspecified type;Community acquired pneumonia, unspecified laterality;Pulmonary infiltrates;Acute encephalopathy;Group A streptococcal infection;Empyema ([facility]) 12/27/2017 Telephone Critical Care Jesus, Hbne-cm-Ndeh Call Medicine Janusz Yin MD after 03/20/2017 Social History Tobacco Use Types Packs/Day Years [...] 01/23/2018 3:56 AM CDT Plan of Treatment Not on file Procedures Procedure Name Priority Date/Time Associated Diagnosis Comments EPHRAIM 01/13/2018 9:07 AM Pleural effusion CDT THORACOTOMY,DECORTICATIO 01/13/2018 9:07 AM Pleural effusion N CDT THORACOSCOPY (VATS) 01/13/2018 9:07 AM Pleural effusion CDT INSERTION OF CANNULA FOR 12/30/2017 9:29 AM Cardiogenic shock ECMO MCR - IP PROC CDT ([facility]) ONLY Case Notes CVR-34. 1579mGy L CATH & CORONARY ANGIOS 12/28/2017 10:41 AM CDT Cardiac shock syndrome ( HCC) R CATH 12/28/2017 10:41 AM CDT Cardiac shock syndrome (HCC) INSERTION OF CANNULA FOR ECMO 12/28/2017 10:41 AM CDT Cardiac shock syndrome (HCC) MCR - IP PROC ONLY after 03/20/2017 Results EKG-SCANNED (01/25/2018 1:20 PM)RHYTHM STRIP - SCAN (01/25/2018 1:20 PM) VASCULAR DIAGRAM -SCAN (01/25/2018 1:20 PM)aPTT (01/24/2018 12:40 PM)Only the most recent of44 resultswithin the time period is included. Component Value Ref Range PTT 57.7 (H) 22.5 - 36.0 seconds Specimen Performing Laboratory Blood - Central Venous Line [address] [place] [address] Wound culture + gram stain (01/24/2018 11:54 AM) Component Value Ref Range Result 1+ Enterobacter cloacae complex (A)Comment: AmpC Positive Gram Stain Result 2+ WBCs Gram Stain Result No organisms seen Specimen Performing Laboratory Wound - Groin, Right [id number] [place] [address] Organism Antibiotic Method Susceptibility Enterobacter cloacae complex Amikacin <=2: Susceptible Enterobacter cloacae complex Aztreonam >=64: Resistant Enterobacter cloacae complex Cefepime Resistant Enterobacter cloacae complex Ceftazidime >=64: Resistant Enterobacter cloacae complex Ceftriaxone >=64: Resistant Enterobacter cloacae complex Ertapenem 4: Resistant Enterobacter cloacae complex Gentamicin <=1: Susceptible Enterobacter cloacae complex Levofloxacin 0.5: Susceptible Enterobacter cloacae complex Meropenem Resistant Enterobacter cloacae complex Piperacillin + Tazobactam >=128: Resistant Enterobacter cloacae complex Tetracycline >=16: Resistant Enterobacter cloacae complex Tobramycin <=1: Susceptible Enterobacter cloacae complex Trimethoprim + Sulfamethoxazole <=20: Susceptible NM lung scan (V/Q) (01/24/2018 10:50 AM) Specimen Performing Laboratory [facility] Narrative FINAL REPORT PROCEDURE: V/Q LUNG SCAN CPT CODE: 30030 INDICATION: Chest pain PROTOCOL: 9.2 mCi ofXe-133 [...] abnormality and additional left pleural abnormality. Signed: Devonte Barker MD Report Verified Date/Time:01/24/2018 12:29:41 Reading Location: [address] Reading Room Procedure Note Interface, External Ris In - 01/24/2018 12:31 PM CDT FINAL REPORT PROCEDURE: V/Q LUNG SCAN CPT CODE: 17674 INDICATION: Chest pain PROTOCOL: 9.2 mCi of [...] abnormality and additional left pleural abnormality. Signed: Devonte Barker MD Report Verified Date/Time: 01/24/2018 12:29:41 Reading Location: [address] Reading Room Manual Differential (01/24/2018 4:44 AM)Only [...] Performing Laboratory Blood - Central Venous Line [address] [address] Narrative Received comment: User comments: Slide comments: [...] Performing Laboratory Blood - Central Venous Line [address] [address] CBC with platelet count + automated diff (01/24/2018 4:44 AM)Only the most recent of33 resultswithin the time period is included. Specimen Performing Laboratory Blood Narrative The following orders were created for panel order CBC with platelet count + automated diff. Procedure Abnormality Status --------- ------ CBC with platelet count ...[[id number]]AbnormalFinal result Please view results for these tests on the individual orders. Magnesium (01/24/2018 4:44 AM)Only the most recent of45 resultswithin the time period is included. Component Value Ref Range Magnesium 2.2 1.6 - 2.6 mg/dL Specimen Performing Laboratory Blood - Central Venous Line [address] [address] Basic Metabolic Panel (01/24/2018 4:44 AM)Only the [...] Performing Laboratory Blood - Central Venous Line [address] [address] XR chest 2 views (01/23/2018 9:50 PM) [...] MD Report Verified Date/Time:01/23/2018 22:10:11 Reading Location: [address] Reading Room Procedure Note Interface, External [...] Report Verified Date/Time: 01/23/2018 22:10:11 Reading Location: [address] Reading Room (Hemogram only) (01/23/2018 9:34 [...] 0 /100 WBC Specimen Performing Laboratory Blood [facility] [address] [address] ECG 12 lead (01/23/2018 9:11 PM)Only the most recent of13 resultswithin the time period is included. Specimen Performing Laboratory GE MUSE Narrative Ventricular Rate 102 BPM Atrial Rate 102 BPM P-R Interval 146 ms QRS Duration 82 ms Q-T Interval 358 ms QTC Calculation(Bazett) 466 ms P [place] 66 degrees R [place] 35 degrees T [place] 33 degrees Sinus tachycardia Nonspecific T wave abnormality Abnormal ECG When compared with ECG of 19-JAN-2018 18:41, No significant change was found Confirmed by Anuradha GONZALEZ, GISELLA ([id number]) on 01/26/2018 3:12:01 PM Procedure Note Interface, External Ris In - 01/26/2018 3:12 PM CDT Ventricular Rate 102 BPM Atrial Rate 102 BPM P-R Interval 146 ms QRS Duration 82 ms Q-T Interval 358 ms QTC Calculation(Bazett) 466 ms P [place] 66 degrees R [place] 35 degrees T [place] 33 degrees Sinus tachycardia Nonspecific T wave abnormality Abnormal ECG When compared with ECG of 19-JAN-2018 18:41, No significant change was found Confirmed by Anuradha GONZALEZ BASANT (Aashish) on 01/26/2018 3:12:01 PM Venous doppler arms bilateral (01/23/2018 6:10 PM)Only the most recent of2 resultswithin the time period is included. Component Value Ref Range Ejection Fraction Specimen Performing Laboratory [facility] E[facility] CPACS Impressions Right Impression [...] Patient Name NAI,Date of Study 01/23/2018 JAYCEE [id number] Age 47 Visit Number [id number] Gender Female Accession Number [id number] Date of 1970 [facility] Room Number 1119 Physician SonographMarta GreenJ. Abraham Rubin MD, RVSPhysician RAF Gomes RVT Procedure Type of Study: Veins: [...] Study 01/23/2018 JAYCEE Age 47 Visit Number [id number] Gender Female Accession Number [id number] Date of 1970 [facility] Room Number 1119 Physician Retort Forker Liban Moran Interpreting Steph Rubin MD, RVS [...] 1+ few Specimen Performing Laboratory Blood [facility] [address] [place] [address] XR chest 1 view portable / bedside [...] - 55 U/L Specimen Performing Laboratory Blood [address] [address] Tissue Exam (01/19/2018 9:10 AM) Component Value Ref Range Case Report Surgical Pathology Report Case: [id number] Authorizing Provider:Imani Garcia MD Collected: 01/19/2018909 Ordering Location: [address] Received: 01/19/2018909 Service Pathologist: Primo Renteria MD Specimen:Skin DIAGNOSIS A. SITE NOT SPECIFIED, SKIN PUNCH BIOPSY: - PRURIGO/CHRONIC SPONGIOTIC DERMATITIS, WITH SCAR Signing Pathologist Direct Phone Line: [phone] CPT Code(s) 32126; 56998 CLINICAL HISTORY None given SPECIMEN SOURCE Skin [...] Negative Specimen Performing Laboratory Tissue - Skin [address] [address] AFB culture + smear (01/18/2018 5:26 PM) Component Value Ref Range Result No acid-fast bacilli isolated in 42 days AFB Smear No acid fast bacilli seen Specimen Performing Laboratory Tissue - Skin [address] [address] Fungus culture + smear (01/18/2018 5:26 PM) Component Value Ref Range Result No fungus isolated in 28 days Fungus Smear No fungi seen Specimen Performing Laboratory Tissue - Skin [address] [address] Hemodialysis (01/17/2018 10:58 PM) Narrative Ruy Russell RN 01/17/2018 10:58 PM HD treatment completed, [...] - 20.0 ug/mL Specimen Performing Laboratory Blood [address] [address] Phosphorus (01/16/2018 4:57 AM)Only the most recent of36 resultswithin the time period is included. Component Value Ref Range Phosphorus 5.8 (H) 2.3 - 4.7 mg/dL Specimen Performing Laboratory Blood - Central Venous Line [address] [address] TRANSFUSION SERVICE REPORT - SCAN (01/15/2018 6:01 PM)Only the most recent of10 resultswithin the time period is included.Oxygen saturation, measured (02/2018 3:46 AM)Only the most recent of8 resultswithin the time period is included. Component Value Ref Range O2 Saturation (Measured) 66.9 % Specimen Performing Laboratory Blood [address] [address] Calcium, Ionized (01/15/2018 3:46 AM)Only the most recent of43 resultswithin the time period is included. Component Value Ref Range Calcium, Ion 1.07 (L) 1.12 - 1.27 mmol/L pH, Blood 7.35 Specimen Performing Laboratory Blood [address] [address] Blood gas, arterial (01/15/2018 3:46 AM)Only the [...] 36.0 % Specimen Performing Laboratory Blood, Arterial [address] [address] Prepare RBC (01/14/2018 11:54 PM)Only the most recent of2 resultswithin the time period is included. Component Value Ref Range CROSSMATCH COMPATIBLE Unit ABO A Pos UNIT NUMBER [id number] Status TRANSFUSED Blood Bank Product RED BLOOD CELLS PRODUCT CODE Q0174M44 CROSSMATCH COMPATIBLE Unit ABO A Pos UNIT NUMBER [id number] Status TRANSFUSED Blood Bank Product RED BLOOD CELLS PRODUCT CODE [id number] Specimen Performing Laboratory [place] Vancomycin level, random (01/14/2018 11:03 AM)Only the most recent of2 resultswithin the time period is included. Component Value Ref Range Vancomycin Rm 25.1 ug/mL Specimen Performing Laboratory Blood [address] [address] Narrative Reference Range: No Normals Lactic acid, arterial, whole blood (01/14/2018 3:40 AM)Only the most recent of23 resultswithin the time period is included. Component Value Ref Range Lactate, Art 2.9 (H) 0.5 - 2.2 mmol/L Specimen Performing Laboratory Blood, Arterial [address] [address] Narrative Effective 11/12/2015: Units/Reference Range Change New: 0.5-2.2 mmol/LPrevious: 5-20 mg/dL POC-Glucose meter (01/14/2018 1:17 AM)Only the most recent of45 resultswithin the time period is included. Component Value Ref Range POC-Glucose Meter 85Comment: TESTED AT [address] 70 - 110 mg/dL [address] Specimen Performing Laboratory Blood [address] [address] Hemoglobin and hematocrit (01/13/2018 10:37 PM)Only the most recent of2 resultswithin the time period is included. Component Value Ref Range Hemoglobin 9.6 (L) 11.2 - 15.7 GM/DL Hematocrit 29.8 (L) 34.1 - 44.9 % Specimen Performing Laboratory Blood [address] [address] [facility] CRITICAL LABS (ABG,NA,K,H&H,GLUCOSE) (01/13/2018 2:49 PM)Only the most recent of8 resultswithin the time period is included. Specimen Performing Laboratory Blood, Arterial Narrative The following orders were created for panel order [facility] CRITICAL LABS (ABG,NA,K,H&H,GLUCOSE). Procedure Abnormality Status --------- ------ Blood gas, arterial[[id number]]AbnormalFinal result Sodium Na-Stat Lab[[id number]] NormalFinal result Potassium-Stat Lab[[id number]] NormalFinal result Glucose-Stat Lab[[id number]] AbnormalFinal result HGB/HCT (H&H)-Stat Lab[[id number]] Abnormal Final result Please view results for these tests on the individual orders. Potassium-Stat Lab (01/13/2018 2:49 PM)Only the most recent of12 resultswithin the time period is included. Component Value Ref Range Potassium 4.4 3.6 - 5.5 meq/L Specimen Performing Laboratory Blood, Arterial [address] [address] Sodium Na-Stat Lab (01/13/2018 2:49 PM)Only the most recent of10 resultswithin the time period is included. Component Value Ref Range Sodium 136 135 - 148 meq/L Specimen Performing Laboratory Blood, Arterial [address] [address] Glucose-Stat Lab (01/13/2018 2:49 PM)Only the most recent of17 resultswithin the time period is included. Component Value Ref Range Glucose 199 (H) 70 - 110 mg/dL Specimen Performing Laboratory Blood, Arterial [address] [address] HGB/HCT (H&H)-Stat Lab (01/13/2018 2:49 PM)Only the most recent of12 resultswithin the time period is included. Component Value Ref Range Hemoglobin 10.5 (L) 12.0 - 15.0 g/dL Hematocrit 31.0 (L) 36.0 - 45.0 % Specimen Performing Laboratory Blood, Arterial [address] [address] Hemoglobin-Stat Lab (01/13/2018 12:15 PM) Component Value Ref Range Hemoglobin 8.2 (L) 12.0 - 15.0 g/dL Specimen Performing Laboratory Blood, Arterial [address] [address] Hematocrit-Stat Lab (01/13/2018 12:15 PM) Component Value Ref Range Hematocrit 24.0 (L) 36.0 - 45.0 % Specimen Performing Laboratory Blood, Arterial [address] [address] Screen, urine (01/13/2018 8:36 AM) Component Value Ref Range Preg Test, Ur Negative Specimen Performing Laboratory Urine - Urine, Clean Catch [address] [address] Type and screen, automated (01/12/2018 9:38 PM)Only the most recent of5 resultswithin the time period is included. Component Value Ref Range ABO/RH AUTOMATED (BEAKER) A POSITIVE Ab Scrn NEGATIVE Specimen Performing Laboratory Blood [address] [address] Hepatitis B surface antigen (01/12/2018 6:58 PM) Component Value Ref Range hepatitis B Surface Ag Nonreactive Nonreactive Specimen Performing Laboratory Blood - Central Venous Line [address] [address] Lactic acid, venous, whole blood (01/12/2018 6:24 AM) Component Value Ref Range Lactate, Venous 0.5 0.5 - 2.2 mmol/L Specimen Performing Laboratory Blood [address] [address] Narrative Effective 11/12/2015: Units/Reference Range Change New: 0.5-2.2 mmol/LPrevious: 5-20 mg/dL D-dimer (01/10/2018 3:25 AM)Only the most recent of16 resultswithin the time period is included. Component Value Ref Range D-Dimer, Quant 6.95 (H) <0.50 MG/L FEU Specimen Performing Laboratory Blood - Line, [place] [address] Narrative Intended Use: The D-Dimer Assay can [...] Specimen Performing Laboratory Blood - Line, [place] [address] Troponin I (01/08/2018 11:56 PM) Component Value Ref Range Troponin I <0.01 0.00 - 0.03 ng/mL Specimen [place] [address] Narrative Troponin I (TnI) levels must be [...] COMPATIBLE Unit ABO A Pos UNIT NUMBER [id number] Status TRANSFUSED Blood Bank Product RED BLOOD CELLS PRODUCT CODE [id number] Specimen Performing Laboratory Other [place] [place] Clostridium difficile GDH Toxin (01/08/2018 4:14 AM) Component Value Ref Range C. Difficle Toxin Negative Negative C. Difficile GDH Antigen NegativeComment: No indication of Clostridium Negative difficile infection and no colonization. Discontinue enteric isolation and therapy. Specimen Performing Laboratory Stool [address] [address] Narrative Testing performed by [employer] Rapid Cassette Assay.For GDH, published sensitivity of the assay is 98.7% compared to cytotoxicity testing.For Toxin AB, published sensitivity is 87.8% and specificity 99.4% compared to cytotoxicity testing. Verification of kit performance was done by the [facility] Microbiology Lab prior to clinical use. Occult blood, stool (01/08/2018 4:14 AM) Component Value Ref Range Occult blood Positive (A) Negative Specimen Performing Laboratory Stool [address] [address] Potassium (01/07/2018 2:23 PM)Only the most recent of51 resultswithin the time period is included. Component Value Ref Range Potassium 5.1 3.5 - 5.1 meq/L Specimen Performing Laboratory Blood [address] [address] Transfuse Leuko-Red RBC (01/07/2018 12:58 PM)Only the most recent of8 resultswithin the time period is included.Sodium (01/07/2018 8:37 AM)Only the most recent of21 resultswithin the time period is included. Component Value Ref Range Sodium 134 (L) 136 - 145 meq/L Specimen Performing Laboratory Blood [address] [address] XR abdomen / KUB 1 view (01/06/2018 [...] MD Report Verified Date/Time:01/06/2018 20:30:47 Reading Location: [facility] C013 Consult Reading Room Procedure Note Interface, External Ris In - 01/06/2018 8:31 PM CDT FINAL REPORT CLINICAL HISTORY: feeding tube placement TECHNIQUE: Supine abdomen IMPRESSION: The tip of the feeding tube is in the distal stomach. The partially visualized bowel gas pattern is nonspecific. Signed: Evan Lyon MD Report Verified Date/Time: 01/06/2018 20:30:47 Reading Location: [facility] B1 C013W Consult Reading Room CARDIOGRAM REPORT - SCAN (01/06/2018 1:54 PM)Only the most recent of4 resultswithin the time period is included.Transesophageal echo (01/06/2018 9: 05 AM) Component Value Ref Range Ejection Fraction Specimen Performing Laboratory [facility] CPACS Narrative Transesophageal Echocardiography Report (EPHRAIM) Demographics Patient Name NAI, Date of Study01/06/2018 JAYCEE [id number] Female Visit Number [id number] Unknown [id number] Room [id number] Number Date of Birth1970Referring Niurka Luis Physician Federico Age47 year(s)SonographerOscBRITTANY Jo Interpreting Blayne Zuniga MD Physician Fellow JULISSA [...] Study 01/06/2018 JAYCEE Gender Female Visit Number [id number] Race Unknown Room Number 7101 Number Date of 1970 Referring Niurka Luis Physician Federico Age 47 year(s) Retort Forker BRITTANY Rhodes Interpreting Blayne Zuniga MD Physician Fellow JULISSA [...] 36.0 seconds Specimen Performing Laboratory Blood [facility] [address] [address] Narrative RECOMMENDED COUMADIN/WARFARIN INR THERAPY RANGES STANDARD DOSE: 2.0 - 3.0 Includes: PROPHYLAXIS for venous thrombosis, systemic embolization; TREATMENT for venous thrombosis and/or pulmonary embolus. HIGH RISK: Target INR is 2.5-3.5 for patients with mechanical heart valves. 2D Echo W/Doppler(CW/PW/Color) (01/05/2018 12:36 PM)Only the most recent of2 resultswithin the time period is included. Component Value Ref Range Ejection Fraction Specimen Performing Laboratory [facility] CPACS Narrative Transthoracic Echocardiography Report (TTE) Demographics Patient Name NAI, Date of Study 01/05/2018 JAYCEE [id number] Female Visit Number [id number] Room Number 7101 Number Date of Birth1970Referring Physician Clement Munroe Age47 year(s)Retort Forker Rosmery Parish RDCS Kaylyn Garcia, Interpreting Mckay [...] Transthoracic Echocardiography Report (TTE) Demographics Patient Name [facility], Date of Study 01/05/2018 JAYCEE Gender Female Visit Number [id number] Race Unknown Room Number 7101 Number Date of 1970 Referring Physician Clement Munroe Age 47 year(s) Retort Forker Rosmery Parish [facility] Revolving Field Assembler Floresita Garcia, Interpreting Blayne Zuniga [facility] Physician Procedure Type of Study TTE procedure:2DECHO [...] LVESV Mccormack's:44.34 ml LVEDVI: 57 ml/m^2 LVEF Mccormcak's: 66.7 % LVESVI: 19 ml/m^2 LVOT Diameter: [...] contrast (01/04/2018 10:04 PM) Specimen Performing Laboratory [facility] Reggie FINAL REPORT CT scan of the chest, [...] MD Report Verified Date/Time:01/04/2018 23:07:55 Reading Location: [address] Consult Reading Room Procedure Note Interface, [...] Report Verified Date/Time: 01/04/2018 23:07:55 Reading Location: [facility] B1 C013W Consult Reading Room abdomen/pelvis without iv contrast (01/04/2018 10:04 PM) Specimen Performing Laboratory [facility] Narrative FINAL REPORT CT scan of the chest, [...] MD Report Verified Date/Time:01/04/2018 23:07:55 Reading Location: [facility] C013W Consult Reading Room Procedure Note Interface, External [...] Report Verified Date/Time: 01/04/2018 23:07:55 Reading Location: [facility] Consult Reading Room pH, arterial (01/04/2018 8:18 PM)Only the most recent of9 resultswithin the time period is included. Component Value Ref Range pH, Arterial 7.35 7.35 - 7.45 Specimen Performing Laboratory Blood, Arterial [facility] [address] [address] [place] hepatobiliary (HIDA) scan (01/04/2018 3:52 PM) Specimen Performing Laboratory [facility] Narrative FINAL REPORT PROCEDURE: HEPATOBILIARY SCAN CPT CODE: 31541 INDICATION:Fever, abnormal gallbladder ultrasound PROTOCOL: 5.2 mCi [...] and no evidence of acute cholecystitis. Signed: Devonte Barker MD Report Verified Date/Time:01/04/2018 16:08:17 Reading Location: [address] Reading Room Procedure Note Interface, External Ris In - 01/04/2018 4:10 PM CDT FINAL REPORT PROCEDURE: HEPATOBILIARY SCAN CPT CODE: 49620 INDICATION: Fever, abnormal gallbladder ultrasound PROTOCOL: 5.2 [...] and no evidence of acute cholecystitis. Signed: Devonte Barker MD Report Verified Date/Time: 01/04/2018 16:08:17 Reading Location: [address] Reading Room Sputum Culture + Gram Stain [...] yeast Specimen Performing Laboratory Sputum - Suctioned [facility] [address] [address] Narrative 2+ Normal respiratory сергей present Organism [...] Ref Range Ejection Fraction Specimen Performing Laboratory [facility] ECHO HEARTLAB MKCKESSBRAYAN CPACS Impressions Right Impression 1. Limited Exam: [...] Patient Name NAI,Date of Study 01/04/2018 JAYCEE [id number] Age 47 Visit Number [id number] Gender Female Accession Number [id number] Date of 1970 ReferringClement Marinelli Room Number [id number] Meghan MartinezographYenifer Hargrove InterpretingSteph Rubin MD, Physician GERRY Procedure Type of [...] Study 01/04/2018 JAYCEE Age 47 Visit Number [id number] Gender Female Accession Number [id number] Date of 1970 Referring Clement Marinelli Room Number [id number] Physician [place] Retort Forkeredilia Hargrove Interpreting Steph Rubin MD, Physician GERRY [...] ng/mL Specimen Performing Laboratory Blood - Line, [address] [address] Iron, TIBC, % sat. (without ferritin) (01/04/2018 3:42 AM) Component Value Ref Range Iron 26 (L) 40 - 160 ug/dL TIBC 255 250 - 450 ug/dL Iron % Saturation 10 (L) 20 - 55 % Specimen Performing Laboratory Blood - Line, [address] [address] Reticulocyte count (01/04/2018 3:42 AM) Component Value Ref Range % Retic 1.3 0.5 - 1.7 % Specimen Performing Laboratory Blood - Line, [address] [address] Ferritin (01/04/2018 3:42 AM) Component Value Ref Range Ferritin 1296 (H) 5 - 275 ng/mL Specimen Performing Laboratory Blood - Line, [address] [address] Prothrombin time/INR (01/04/2018 3:40 AM)Only the most recent of11 resultswithin the time period is included. Component Value Ref Range Protime 17.4 (H) 11.7 - 14.7 seconds INR 1.4 <=5.9 Specimen Performing Laboratory Blood - Line, Arterial [facility] [address] [place] [address] Narrative RECOMMENDED COUMADIN/WARFARIN INR THERAPY RANGES STANDARD [...] mg/dl Specimen Performing Laboratory Blood - Line, Arterial [address] [address] US abdomen complete (01/04/2018 2:50 AM) Specimen Performing Laboratory [facility] Narrative FINAL REPORT Ultrasound of the Abdomen, [...] MD Report Verified Date/Time:01/04/2018 05:25:20 Reading Location: [address] Transitional Reading Room Procedure Note Interface, External [...] Report Verified Date/Time: 01/04/2018 05:25:20 Reading Location: [facility] Transitional Reading Room Blood culture (01/03/2018 11:57 PM)Only the most recent of7 resultswithin the time period is included. Component Value Ref Range Result No growth in 5 days Specimen Performing Laboratory Blood - Central Venous Line [address] [address] CARDIAC CATH REPORT - SCAN (01/03/2018 4:20 PM)Only the most recent of2 resultswithin the time period is included.Peripheral Blood Smear - Path Review ( 01/03/2018 12:10 PM) Component Value Ref Range WBC Morphology Toxic Granulation Left Shift Pathologist Review Cell counts confirmed. Pathologist: Brook Dunaway M.D. (electronic signature) Specimen Performing Laboratory Blood [address] [address] Heparin Assay - Unfractionated (01/03/2018 5:16 AM)Only the most recent of7 resultswithin the time period is included. Component Value Ref Range Anti 10A-Unfractionated Heparin <0.10 (L) 0.30 - 0.70 u/ml Specimen Performing Laboratory Blood [address] [address] Narrative Recommendations for Monitoring Unfractionated Heparin Therapeutic [...] - 5.0 % Specimen Performing Laboratory Blood [address] [address] Antithrombin III (01/03/2018 5:16 AM)Only the most recent of9 resultswithin the time period is included. Component Value Ref Range Antithrombin III 85.0 80.0 - 120.0 % Specimen Performing Laboratory Blood [address] [address] HIV-1 Antigen with HIV-1/2 Antibody (01/02/2018 8:01 AM) Component Value Ref Range HIV-1 Antigen with HIV 1&2 Antibody Nonreactive Nonreactive Specimen Performing Laboratory Blood [address] [address] [address] brain without IV contrast portable (01/01/2018 1:25 PM)Only the most recent of2 resultswithin the time period is included. Specimen Performing Laboratory [facility] Narrative FINAL REPORT CT head without contrast [...] sinus disease with bilateral mastoid effusions. Signed: Carlee Powers MD Report Verified Date/Time:01/01/2018 12:53:19 Reading Location: [address] Neuro Reading Room Procedure Note Interface, External [...] sinus disease with bilateral mastoid effusions. Signed: Carlee Powers MD Report Verified Date/Time: 01/01/2018 12:53:19 Reading Location: [facility] B1 C013V Neuro Reading Room Prepare Leuko-Red PLT (12/31/2017 11:54 PM) Component Value Ref Range Unit ABO A Pos UNIT NUMBER [id number] Status TRANSFUSED Blood Bank Product PLATELETS PRODUCT CODE [id number] Specimen Performing Laboratory Blood SAFETRACE TX BUN (12/31/2017 4:43 AM)Only the most recent of3 resultswithin the time period is included. Component Value Ref Range BUN 26 (H) 7 - 21 mg/dL Specimen Performing Laboratory Blood [address] [address] Glucose (12/31/2017 4:43 AM)Only the most recent of4 resultswithin the time period is included. Component Value Ref Range Glucose 132 (H) 70 - 105 mg/dL Specimen Performing Laboratory Blood [address] [address] Creatinine, serum (12/31/2017 4:43 AM)Only the most recent of3 resultswithin the time period is included. Component Value Ref Range Creatinine 1.65 (H) 0.57 - 1.25 mg/dL EGFR Comment: INSUFFICIENT CLINICAL DATA TO CALCULATE mL/min/1.73 sq m ESTIMATED GFR. Specimen Performing Laboratory Blood [address] [address] Electrolytes (12/31/2017 4:43 AM)Only the most recent of3 resultswithin the time period is included. Component Value Ref Range Sodium 138 136 - 145 meq/L Potassium 5.1 3.5 - 5.1 meq/L Chloride 105 98 - 107 meq/L CO2 23 22 - 29 meq/L Specimen Performing Laboratory Blood [address] [address] Haptoglobin (12/30/2017 4:38 PM) Component Value Ref Range Haptoglobin 350 (H) 14 - 258 mg/dL Specimen Performing Laboratory Blood [address] [address] Transfuse Leuko-Red PLT (12/30/2017 8:44 AM)Only the most recent of2 resultswithin the time period is included.Heparin antibody (12/30/2017 8:03 AM) Component Value Ref Range Heparin Ab Negative Negative Heparin Antibody Optical Density 0.115 <0.400 4T Total Score 3 Specimen Performing Laboratory Blood [address] [address] Narrative Probability of HIT based on scoring system: 6-8=High probability; 4-5=intermediate probability; 0-3=low probability EEG monitoring with video recording each 24 hours (12/30/2017 6:00 AM) Specimen Performing Laboratory [facility] Narrative Date(s) of EE/21- DATE OF REPORT: 12/30/2017 ACC: [id number] EEG Number: [id number] Test Location: Inpatient ICU Start time: 13:11 Stop time: 10:23 ICD-10: R 56.9 CPT Code: 43735 HISTORY: ECMO protocol MEDICATIONS THAT COULD AFFECT [...] significant change. Sonny Smith MD Attending Neurophysiologist [facility] Procedure Note Interface, External Ris In - 12/30/2017 12:55 PM CDT Date(s) of EE DATE OF REPORT: 12/30/2017 ACC: [id number] EEG Number: [id number] Test Location: Inpatient ICU Start time: 13:11 Stop time: 10:23 ICD-10: R 56.9 CPT Code: 10443 HISTORY: ECMO protocol MEDICATIONS THAT COULD AFFECT [...] significant change. Sonny Smith MD Attending Neurophysiologist [facility] Fibrin soluble monomer (12/29/2017 6:06 PM)Only the most recent of2 resultswithin the time period is included. Component Value Ref Range Fibrin Soluble Monomer Negative Specimen Performing Laboratory Blood [address] [address] Platelet count (12/29/2017 3:57 PM) Component Value Ref Range Platelets 60 (L) 150 - 450 K/CU MM Specimen Performing Laboratory Blood [address] [address] EEG AWAKE AND DROWSY (12/29/2017 1:11 PM) Specimen Performing Laboratory [facility] Narrative Date(s) of EE12/29/2017 DATE OF REPORT: 12/29/2017 ACC: [id number] EEG Number: [id number] Test Location: Inpatient ICU Start time: 12:51 Stop time: 13:11 ICD-10: R 56.9 CPT Code: 27881 HISTORY: ECMO protocol MEDICATIONS THAT COULD AFFECT [...] Fellow, PGY5 Sonny Smith MD Attending Neurophysiologist [facility] Procedure Note Interface, External Ris In - 12/29/2017 3:37 PM CDT Date(s) of EE12/29/2017 DATE OF REPORT: 12/29/2017 ACC: [id number] EEG Number: [id number] Test Location: Inpatient ICU Start time: 12:51 Stop time: 13:11 ICD-10: R 56.9 CPT Code: 29756 HISTORY: ECMO protocol MEDICATIONS THAT COULD AFFECT [...] Fellow, PGY5 Sonny Smith MD Attending Neurophysiologist [facility] pH, body fluid (12/29/2017 10:31 AM) Component Value Ref Range pH, Body Fluid 7.26 Specimen Performing Laboratory Body Fluid - Pleural, [address] [address] Glucose, body fluid (12/29/2017 10:31 AM) Component Value Ref Range Glucose, Body Fluid <5 (L) 70 - 110 mg/dL Specimen Performing Laboratory Body Fluid - Pleural[address] [address] Narrative Absence of reference range indicates that [...] Specimen Performing Laboratory Body Fluid - Pleural, [address] [address] Narrative Body fluid cell count with differential (12/29/2017 10:31 AM) Component Value Ref Range Appearance Hazy (A) Clear Color Yellow (A) Colorless, Straw RBCs [address] (H) <=1 /cu mm Adjusted WBC Count [address] (H) <=5 /cu mm Lining Cells 0 <=1 /cu mm % Segs 63 % % Lymphs 3 % % Monos 34 % % Eos 0 % % Baso 0 % Container Body Fluid EDTA Tube Specimen Performing Laboratory Body Fluid - Pleural[address] [address] Protein, body fluid (12/29/2017 10:31 AM) Component Value Ref Range Protein, Fluid 3.4 Light's criteria identifies effusions if one or more are present: Pleural to serum protein ratio of more than 0.5; Pleural to Serum LDH of more than 0.6; Pleural LDH of more than two third of upper serum reference limit g/dL Specimen Performing Laboratory [place] Narrative Absence of reference range indicates that [...] Specimen Performing Laboratory Body Fluid - Pleural, [address] [address] Narrative Absence of reference range indicates that normals have not been defined. Assay performance has not been validated for this type of specimen. Albumin, body fluid (12/29/2017 10:31 AM) Component Value Ref Range Albumin, Fluid 1.8 gm/dL Specimen Performing Laboratory Body Fluid - Pleural[address] [address] Narrative Reference Range:No Normals Assay performance has not been validated for this type of specimen. TSH/Free T4 If Indicated (12/28/2017 2:39 PM)Only the most recent of2 resultswithin the time period is included. Component Value Ref Range TSH 0.36 0.35 - 4.94 uIU/mL Specimen Performing Laboratory Blood [address] [address] POC ACTIVATED CLOTTING TIME (12/28/2017 1:00 PM) Component Value Ref Range Activated Clotting Time 230Comment: TESTED AT [address] [place] [address] Specimen Performing Laboratory Blood [address] [address] Respiratory Panel [facility] (12/28/2017 11:20 AM) Component [...] Specimen Performing Laboratory Nasopharyngeal - Nasopharyngeal Swab [address] [address] Strep pneumoniae antigen (12/28/2017 11:17 AM) Component Value Ref Range Strep pneumoniae Antigen Presumptive negative for Presumptive negative for pneumococcal pneumonia - see pneumococcal pneumonia - see comment comment, Presumptive negative for pneumococcal meningitis - see comment Specimen Performing Laboratory Urine - Urine, [place] [address] [address] Narrative Presumptive negative for pneumococcal pneumonia, suggesting [...] disease. Specimen Performing Laboratory Urine - Urine, [address] [address] Urine culture (12/28/2017 11:16 AM)Only the most recent of2 resultswithin the time period is included. Component Value Ref Range Result No growth Specimen Performing Laboratory Urine - Urine, [address] [address] T4, free (12/28/2017 11:16 AM)Only the most recent of2 resultswithin the time period is included. Component Value Ref Range Free T4 0.44 (L) 0.70 - 1.48 ng/dL Specimen Performing Laboratory Blood [address] [address] Urinalysis w/Microscopic + Reflex to Culture (12/28/2017 11:14 AM) Component Value Ref Range Color, UA Yellow Clarity, UA Hazy Specific [place], UA 1.019 1.001 - 1.035 pH, UA [...] Source Specimen Performing Laboratory Urine - Urine, [address] [address] BCID (12/28/2017 10:50 AM) Component Value Ref Range Scan Result Specimen Performing Laboratory [address] [address] Narrative Result comments: Coagulase Negative Staphylococcus Species [...] [facility] using the RadialpointArray Blood Culture ID Panel. This test is FDA cleared for in vitro diagnostic use and has been verified and approved by the [facility] Clinical Microbiology laboratory for clinical use. Reference Range: Not Detected ECHO W CONTRAST & DOPPLER (12/28/2017 7:33 AM) Component Value Ref Range Ejection Fraction Specimen Performing Laboratory [facility] ECHO HEARTLAB KELSEYCKIRMA CPACS Narrative Transthoracic Echocardiography Report (TTE) Demographics Patient Name NAI, Date of Study 12/28/2017 JAYCEE [id number] Female Visit Number [id number] Room Number 2C34 Number Date of Birth1970Referring Physician Georgie Gallagher Age47 year(s)Retort [employer]orker Oleg Romero Interpreting Physician MARY BETH Pinto Procedure Type of Study TTE procedure:2DECHO W/CONTRAST [...] Transthoracic Echocardiography Report (TTE) Demographics Patient Name [facility], Date of Study 12/28/2017 JAYCEE Gender Female Visit Number [id number] Race Unknown Room Number 2C34 Number Date of 1970 Referring Physician Georgie Gallagher Age 47 year(s) Retort [employer] Oleg Last [employer] Susy Romero Interpreting Juliane Mann Physician Procedure Type of Study TTE procedure:2DECHO [...] compounds and limits of detection go to: http://education.mVisum/faq/DCC166 ACETONE (QUEST) None Detected METHANOL(QUEST) None Detected Isopropanol(Quest) None Detected ETHANOL None Detected Comment: Volatile Limit of Detection: 5 mg/dL Specimen Performing Laboratory Blood [facility] DIAGNOSTIC [facility] [address] [place] [address] Narrative Performing Lab [address] [facility] [place] [facility], [address] [facility] [place] [address] Janee Flaherty MD, PhD Hemoglobin A1c (12/28/2017 3:42 AM) Component Value Ref Range Hemoglobin A1C 6.4 (H) 4.3 - 6.1 % Specimen Performing Laboratory Blood [address] [address] Comprehensive metabolic panel (12/28/2017 2:19 AM) Component [...] CALCULATE ESTIMATED GFR. Specimen Performing Laboratory Blood [address] [address] hCG, quantitative, (12/27/2017 11:13 PM) Component Value Ref Range hCG Quant <1 0 - 10 mIU/mL Specimen Performing Laboratory Blood [address] [address] Narrative Non- Females: <10 mIU/mL Females: Gestation AgeReference Range(mIU/mL) 0.2-1 Week5-50 1-2 Oarhy36-434 2-3 Weeks 100-5,000 3-4 Weeks 500-10,000 4-5 Weeks 1,000-50,000 5-6 Weeks10,000-100,000 6-8 Weeks15,000-200,000 2-3 Months 10,000-100,000 after 03/20/2017
--- OUTSIDE RECORDS SUMMARY | 2018-03-21 12:31 | XMS REPORT ---
:1970 [facility] Address [address] [place] [address] [address]. [address]un [address] [place] [address] Care Team Providers Name Role Phone BRITTANY IGNACIO Unavailable Unavailable Problems This patient has no known problems. Allergies, Adverse Reactions, Alerts This patient has no known allergies or adverse reactions. Medications This patient has no known medications. Results Test Description Test Time Test Comments Text Results Atomic Results Result Comments AFB CULTURE + SMEAR 2018-03-06 00:11:00 Test Item Value Reference Range Comments CULTURE (BEAKER) (test cpid=4482) No acid-fast bacilli isolated in 42 days AFB SMEAR (BEAKER) (test mbrx=403) No acid fast bacilli seen FUNGUS CULTURE + [id number] 12:57:00 Test Item Value Reference Range Comments CULTURE (BEAKER) (test No fungus isolated in 28 days rlts=8192) FUNGUS SMEAR (BEAKER) (test No fungi seen vzim=9773) WOUND CULTURE + GRAM [id number] 15:53:00 Test Item Value Reference Range Comments CULTURE (BEAKER) (test ENTEROBACTER CLOACAE 1+ Enterobacter xsdq=0384) COMPLEX cloacae complexAmpC Positive Amikacin (test code=1) Aztreonam (test code=32) Cefepime (test code=51) Cefoxitin (test code=68) Ceftazidime (test code=27) Ceftriaxone (test code=52) Ertapenem (test code=38) Gentamicin (test code=18) Levofloxacin (test code=22) Meropenem (test code=34) Piperacillin + Tazobactam (test code=29) Tetracycline (test code=2) Tobramycin (test code=25) Trimethoprim + Sulfamethoxazole (test code=47) GRAM STAIN RESULT (BEAKER) 2+ WBCs (test nnfl=6400) GRAM STAIN RESULT (BEAKER) No organisms seen (test njul=134869) [id number] 13:34:00 Test Item Value Reference Range Comments PARTIAL THROMBOPLASTIN TIME (BEAKER) (test 57.7 seconds 22.5-36.0 nitz=382) PUL PERF IMAGING, ZOE, [id number] 12:29:00FINAL REPORT PROCEDURE: V/Q LUNG SCAN CPT CODE: 40676 INDICATION: Chest pain PROTOCOL: 9.2 mCi of [...] MDReport Verified Date/Time: 01/24/2018 12:29:41 Reading Location: [address] Reading Room CBC W/PLT COUNT & AUTO [id number] 09: 54:00 Test Item Value Reference Range Comments WHITE BLOOD CELL COUNT (BEAKER) (test bmxe=002) 13.3 K/ L 3.5-10.5 RED BLOOD CELL COUNT (BEAKER) (test mrlh=897) 2.90 M/ L 3.93-5.22 HEMOGLOBIN (BEAKER) (test blsx=669) 8.5 GM/DL 11.2-15.7 HEMATOCRIT (BEAKER) (test tnnx=951) 26.1 % 34.1-44.9 MEAN CORPUSCULAR VOLUME (BEAKER) (test udou=935) 90.0 fL 79.4-94.8 MEAN CORPUSCULAR HEMOGLOBIN (BEAKER) (test 29.3 pg 25.6-32.2 kfmc=596) MEAN CORPUSCULAR HEMOGLOBIN CONC (BEAKER) (test 32.6 GM/DL 32.2-35.5 duyd=234) RED CELL DISTRIBUTION WIDTH (BEAKER) (test 15.7 % 11.7-14.4 wspd=987) PLATELET COUNT (BEAKER) (test lzzx=547) 284 K/CU MM 150-450 MEAN PLATELET VOLUME (BEAKER) (test zbkv=244) 9.8 fL 9.4-12.3 NUCLEATED RED BLOOD CELLS (BEAKER) (test 0 /100 WBC 0-0 kepj=635) (CELLAVISION MANUAL DIFF)2018-01-24 09:54:00 Test Item Value Reference Range Comments NEUTROPHILS - REL (CELLAVISION)(BEAKER) (test 60 % gcpq=6730) LYMPHOCYTES - REL (CELLAVISION)(BEAKER) (test 10 % whye=9725) MONOCYTES - REL (CELLAVISION)(BEAKER) (test 15 % yuji=8558) EOSINOPHILS - REL (CELLAVISION)(BEAKER) (test 11 % syfa=3942) MYELOCYTES - REL (CELLAVISION)(BEAKER) (test 3 % 0-0 zzcv=3836) ATYPICAL LYMPHOCYTES - REL (CELLAVISION)(BEAKER) 1 % 0-0 (test jhja=6105) NEUTROPHILS - ABS (CELLAVISION)(BEAKER) (test 7.98 K/ul 1.56-6.13 gfoa=3048) LYMPHOCYTES - ABS (CELLAVISION)(BEAKER) (test 1.33 K/ul 1.18-3.74 lath=2374) MONOCYTES - ABS (CELLAVISION)(BEAKER) (test 2.00 K/uL 0.24-0.36 sagp=5771) EOSINOPHILS - ABS (CELLAVISION)(BEAKER) (test 1.46 K/uL 0.04-0.36 wlna=6417) MYELOCYTES-ABS (CELLAVISION)(BEAKER) (test 0.40 K/uL 0.00-0.00 qozc=7278) ATYPICAL LYMPHOCYTES - ABS (CELLAVISION)(BEAKER) 0.13 K/uL 0.00-0.00 (test lyrh=9491) TOTAL COUNTED (BEAKER) (test zmfr=4668) 100 WBC MORPHOLOGY (BEAKER) (test zlpl=262) Normal PLT MORPHOLOGY (BEAKER) (test izrt=973) Normal ANISOCYTOSIS (BEAKER) (test endh=036) 2+ moderate MACROCYTES (BEAKER) (test aysq=452) 2+ moderate ARTIFACT (CELLAVISION)(BEAKER) (test oqal=6356) Present PLATELET CONCENTRATION (CELLAVISION)(BEAKER) Adequate (test yoxr=7232) Received comment: User comments: Slide comments:[id number] 05:44:00 Test Item Value Reference Range Comments PARTIAL THROMBOPLASTIN TIME (BEAKER) (test 103.3 seconds 22.5-36.0 yqnt=846) BASIC METABOLIC [id number] 05:36:00 Test Item Value Reference Range Comments SODIUM (BEAKER) (test 133 meq/L 136-145 uskq=550) POTASSIUM (BEAKER) (test 4.8 meq/L 3.5-5.1 fztj=663) CHLORIDE (BEAKER) (test 95 meq/L 98-107 bwxe=158) CO2 (BEAKER) (test 20 meq/L 22-29 isrl=402) BLOOD UREA NITROGEN 70 mg/dL 7-21 (BEAKER) (test qdlf=688) CREATININE (BEAKER) (test 5.56 mg/dL 0.57-1.25 kofx=523) GLUCOSE RANDOM (BEAKER) 94 mg/dL 70-105 (test xnjg=179) CALCIUM (BEAKER) (test 9.3 mg/dL 8.4-10.2 uchm=337) EGFR (BEAKER) (test 8 mL/min/1.73 sq m ESTIMATED GFR IS NOT tsav=9426) ACCURATE CREATININE CLEARANCE IN PREDICTING GLOMERULAR FILTRATION RATE. ESTIMATED GFR IS NOT APPLICABLE FOR DIALYSIS PATIENTS. [id number] 05:33:00 Test Item Value Reference Range Comments MAGNESIUM (BEAKER) (test apla=964) 2.2 mg/dL 1.6-2.6 CBC (HEMOGRAM ONLY)2018-01-23 22:12:00 Test Item Value Reference Range Comments WHITE BLOOD CELL COUNT (BEAKER) (test fzhs=383) 12.7 K/ L 3.5-10.5 RED BLOOD CELL COUNT (BEAKER) (test cueb=443) 2.88 M/ L 3.93-5.22 HEMOGLOBIN (BEAKER) (test vnfj=310) 8.6 GM/DL 11.2-15.7 HEMATOCRIT (BEAKER) (test dnmk=179) 26.3 % 34.1-44.9 MEAN CORPUSCULAR VOLUME (BEAKER) (test qphi=637) 91.3 fL 79.4-94.8 MEAN CORPUSCULAR HEMOGLOBIN (BEAKER) (test 29.9 pg 25.6-32.2 cymp=595) MEAN CORPUSCULAR HEMOGLOBIN CONC (BEAKER) (test 32.7 GM/DL 32.2-35.5 alae=297) RED CELL DISTRIBUTION WIDTH (BEAKER) (test 15.8 % 11.7-14.4 rxpx=813) PLATELET COUNT (BEAKER) (test xorj=730) 263 K/CU MM 150-450 MEAN PLATELET VOLUME (BEAKER) (test qndu=412) 9.4 fL 9.4-12.3 NUCLEATED RED BLOOD CELLS (BEAKER) (test 0 /100 WBC 0-0 ihdo=732) RAD, CHEST, 2 [id number] 22:10:00Reason for exam:->chest painFINAL REPORT INDICATION: chest pain COMPARISON: January 20, 2018 TECHNIQUE: Frontal and lateral views of the chest. IMPRESSION:Left airspace disease is not significantly improved. There are trace bilateral effusions. No pneumothorax is visible. Mediastinal contours and support hardware are stable. Signed: JR Aguilar Robert MDReport Verified Date/Time: 01/23/2018 22:10: 11 Reading Location: [address] Reading Room [id number] 22:03:00 Test Item Value Reference Range Comments PARTIAL THROMBOPLASTIN TIME (BEAKER) (test 42.5 seconds 22.5-36.0 txhe=171) Prior to initiating heparinTISSUE [id number] 16:59:00Surgical Pathology Report Case: [id number] Authorizing Provider: Imani Garcia MD Collected: [id number] Ordering Location: [address] Received : 01/19/2018 0910 Service Pathologist: Primo Renteria MD Specimen: Skin A. SITE NOT SPECIFIED, SKIN PUNCH BIOPSY:- PRURIGO/CHRONIC SPONGIOTIC DERMATITIS , WITH SCAR Signing PathologistDirect Phone Line: [phone] signed by Primo Renteria MD on 01/23/2018 at 4:59 PMPreliminary result electronically signed by Primo Renteria MD on 01/20/2018 at 2:21 [id number]; [id number] given Skin punch biopsyThe specimen is received [...] above:GMS - NegativeCBC W/PLT COUNT & AUTO [id number] 11:05:00 Test Item Value Reference Range Comments WHITE BLOOD CELL COUNT (BEAKER) (test nybh=209) 12.3 K/ L 3.5-10.5 RED BLOOD CELL COUNT (BEAKER) (test zzub=684) 3.07 M/ L 3.93-5.22 HEMOGLOBIN (BEAKER) (test xefg=368) 8.8 GM/DL 11.2-15.7 HEMATOCRIT (BEAKER) (test bzuy=969) 28.3 % 34.1-44.9 MEAN CORPUSCULAR VOLUME (BEAKER) (test tczi=154) 92.2 fL 79.4-94.8 MEAN CORPUSCULAR HEMOGLOBIN (BEAKER) (test 28.7 pg 25.6-32.2 zgpr=861) MEAN CORPUSCULAR HEMOGLOBIN CONC (BEAKER) (test 31.1 GM/DL 32.2-35.5 reud=851) RED CELL DISTRIBUTION WIDTH (BEAKER) (test 15.9 % 11.7-14.4 npgf=038) PLATELET COUNT (BEAKER) (test blhf=756) 253 K/CU MM 150-450 MEAN PLATELET VOLUME (BEAKER) (test dojr=196) 9.5 fL 9.4-12.3 NUCLEATED RED BLOOD CELLS (BEAKER) (test 0 /100 WBC 0-0 xkxl=129) (CELLAVISION MANUAL DIFF)2018-01-23 11:05:00 Test Item Value Reference Range Comments NEUTROPHILS - REL (CELLAVISION)(BEAKER) (test 49 % qeuw=0043) LYMPHOCYTES - REL (CELLAVISION)(BEAKER) (test 13 % hzuj=6186) MONOCYTES - REL (CELLAVISION)(BEAKER) (test 7 % awrf=3806) EOSINOPHILS - REL (CELLAVISION)(BEAKER) (test 16 % bciv=8031) BASOPHILS - REL (CELLAVISION)(BEAKER) (test 1 % anft=7891) METAMYELOCYTES - REL (CELLAVISION)(BEAKER) (test 1 % 0-0 gypv=1478) MYELOCYTES - REL (CELLAVISION)(BEAKER) (test 2 % 0-0 sjfu=7605) BANDS - REL (CELLAVISION)(BEAKER) (test dmze=2965) 11 % 0-10 NEUTROPHILS - ABS (CELLAVISION)(BEAKER) (test 6.03 K/ul 1.56-6.13 kzcd=1547) LYMPHOCYTES - ABS (CELLAVISION)(BEAKER) (test 1.60 K/ul 1.18-3.74 htqo=7225) MONOCYTES - ABS (CELLAVISION)(BEAKER) (test 0.86 K/uL 0.24-0.36 qgce=7806) EOSINOPHILS - ABS (CELLAVISION)(BEAKER) (test 1.97 K/uL 0.04-0.36 rezw=4087) BASOPHILS - ABS (CELLAVISION)(BEAKER) (test 0.12 K/uL 0.01-0.08 dskg=8613) METAMYELOCYTES - ABS (CELLAVISION)(BEAKER) (test 0.12 K/uL 0.00-0.00 tmjg=9208) MYELOCYTES-ABS (CELLAVISION)(BEAKER) (test 0.25 K/uL 0.00-0.00 gdtq=6210) BANDS - ABS (CELLAVISION)(BEAKER) (test seqp=8483) 1.35 K/uL 0.00-0.80 TOTAL COUNTED (BEAKER) (test thbv=0843) 100 RBC MORPHOLOGY (BEAKER) (test cwhc=702) Normal WBC MORPHOLOGY (BEAKER) (test azge=843) Normal PLT MORPHOLOGY (BEAKER) (test cppg=370) Normal ARTIFACT (CELLAVISION)(BEAKER) (test epdu=3951) Present PLATELET CONCENTRATION (CELLAVISION)(BEAKER) (test Adequate ambw=9871) Received comment: User comments: Slide comments:BASIC METABOLIC [id number] 05:19:00 Test Item Value Reference Range Comments SODIUM (BEAKER) (test 131 meq/L 136-145 bpbl=936) POTASSIUM (BEAKER) (test 5.0 meq/L 3.5-5.1 kdxp=879) CHLORIDE (BEAKER) (test 93 meq/L 98-107 ckjw=237) CO2 (BEAKER) (test 21 meq/L 22-29 nqfa=460) BLOOD UREA NITROGEN 74 mg/dL 7-21 (BEAKER) (test bhmh=686) CREATININE (BEAKER) (test 5.82 mg/dL 0.57-1.25 cckx=585) GLUCOSE RANDOM (BEAKER) 102 mg/dL 70-105 (test netv=657) CALCIUM (BEAKER) (test 9.4 mg/dL 8.4-10.2 nush=331) EGFR (BEAKER) (test 8 mL/min/1.73 sq m ESTIMATED GFR IS NOT lzdp=6338) ACCURATE CREATININE CLEARANCE IN PREDICTING GLOMERULAR FILTRATION RATE. ESTIMATED GFR IS NOT APPLICABLE FOR DIALYSIS PATIENTS. [id number] 05:18:00 Test Item Value Reference Range Comments MAGNESIUM (BEAKER) (test jixx=992) 2.1 mg/dL 1.6-2.6 CBC W/PLT COUNT & AUTO [id number] 07:51:00 Test Item Value Reference Range Comments WHITE BLOOD CELL COUNT (BEAKER) (test ytlj=753) 10.1 K/ L 3.5-10.5 RED BLOOD CELL COUNT (BEAKER) (test pvid=874) 2.69 M/ L 3.93-5.22 HEMOGLOBIN (BEAKER) (test rkfe=166) 7.8 GM/DL 11.2-15.7 HEMATOCRIT (BEAKER) (test preh=288) 24.8 % 34.1-44.9 MEAN CORPUSCULAR VOLUME (BEAKER) (test temq=798) 92.2 fL 79.4-94.8 MEAN CORPUSCULAR HEMOGLOBIN (BEAKER) (test 29.0 pg 25.6-32.2 eoad=065) MEAN CORPUSCULAR HEMOGLOBIN CONC (BEAKER) (test 31.5 GM/DL 32.2-35.5 nche=445) RED CELL DISTRIBUTION WIDTH (BEAKER) (test 15.9 % 11.7-14.4 hvdk=742) PLATELET COUNT (BEAKER) (test ptbn=701) 209 K/CU MM 150-450 MEAN PLATELET VOLUME (BEAKER) (test jjox=448) 9.1 fL 9.4-12.3 NUCLEATED RED BLOOD CELLS (BEAKER) (test 0 /100 WBC 0-0 fzru=622) NEUTROPHILS RELATIVE PERCENT (BEAKER) (test 57 % cqmp=001) LYMPHOCYTES RELATIVE PERCENT (BEAKER) (test 13 % bgmz=374) MONOCYTES RELATIVE PERCENT (BEAKER) (test 13 % biqy=818) EOSINOPHILS RELATIVE PERCENT (BEAKER) (test 11 % yvvd=482) BASOPHILS RELATIVE PERCENT (BEAKER) (test 0 % dppi=260) NEUTROPHILS ABSOLUTE COUNT (BEAKER) (test 5.80 K/ L 1.56-6.13 lklu=395) LYMPHOCYTES ABSOLUTE COUNT (BEAKER) (test 1.31 K/ L 1.18-3.74 bpuo=759) MONOCYTES ABSOLUTE COUNT (BEAKER) (test 1.36 K/ L 0.24-0.36 eyro=307) EOSINOPHILS ABSOLUTE COUNT (BEAKER) (test 1.11 K/ L 0.04-0.36 mvkz=647) BASOPHILS ABSOLUTE COUNT (BEAKER) (test 0.02 K/ L 0.01-0.08 dckl=324) IMMATURE GRANULOCYTES-RELATIVE PERCENT (BEAKER) 5 % 0-1 (test dpwl=7490) BASIC METABOLIC [id number] 07:41:00 Test Item Value Reference Range Comments SODIUM (BEAKER) (test 136 meq/L 136-145 bbma=811) POTASSIUM (BEAKER) (test 4.6 meq/L 3.5-5.1 nxeh=208) CHLORIDE (BEAKER) (test 101 meq/L 98-107 dhme=512) CO2 (BEAKER) (test 18 meq/L 22-29 wlao=055) BLOOD UREA NITROGEN 61 mg/dL 7-21 (BEAKER) (test ejkv=763) CREATININE (BEAKER) (test 4.80 mg/dL 0.57-1.25 asht=274) GLUCOSE RANDOM (BEAKER) 74 mg/dL 70-105 (test cmgg=864) CALCIUM (BEAKER) (test 7.9 mg/dL 8.4-10.2 rhqk=592) EGFR (BEAKER) (test 10 mL/min/1.73 sq m ESTIMATED GFR IS NOT chrs=2134) ACCURATE CREATININE CLEARANCE IN PREDICTING GLOMERULAR FILTRATION RATE. ESTIMATED GFR IS NOT APPLICABLE FOR DIALYSIS PATIENTS. [id number] 07:35:00 Test Item Value Reference Range Comments MAGNESIUM (BEAKER) (test kriq=685) 1.5 mg/dL 1.6-2.6 CBC W/PLT COUNT & AUTO [id number] 12:29:00 Test Item Value Reference Range Comments WHITE BLOOD CELL COUNT (BEAKER) (test eult=995) 11.5 K/ L 3.5-10.5 RED BLOOD CELL COUNT (BEAKER) (test vwqc=421) 3.10 M/ L 3.93-5.22 HEMOGLOBIN (BEAKER) (test ocoo=680) 9.0 GM/DL 11.2-15.7 HEMATOCRIT (BEAKER) (test kxky=867) 28.0 % 34.1-44.9 MEAN CORPUSCULAR VOLUME (BEAKER) (test ygpv=433) 90.3 fL 79.4-94.8 MEAN CORPUSCULAR HEMOGLOBIN (BEAKER) (test 29.0 pg 25.6-32.2 hxsi=762) MEAN CORPUSCULAR HEMOGLOBIN CONC (BEAKER) (test 32.1 GM/DL 32.2-35.5 vkqb=491) RED CELL DISTRIBUTION WIDTH (BEAKER) (test 15.8 % 11.7-14.4 vmre=288) PLATELET COUNT (BEAKER) (test cife=302) 234 K/CU MM 150-450 MEAN PLATELET VOLUME (BEAKER) (test zlbw=168) 9.3 fL 9.4-12.3 NUCLEATED RED BLOOD CELLS (BEAKER) (test 0 /100 WBC 0-0 ptrr=162) (MANUAL DIFFERENTIAL)2018-01-21 12:29:00 Test Item Value Reference Range Comments NEUTROPHILS - REL (DIFF) (BEAKER) (test yftu=3898) 66 % LYMPHOCYTES - REL (DIFF) (BEAKER) (test qbsl=0268) 16 % MONOCYTES - REL (DIFF) (BEAKER) (test iftj=4275) 6 % EOSINOPHILS - REL (DIFF) (BEAKER) (test qxcn=8381) 7 % METAMYELOCYTES-REL (DIFF) (BEAKER) (test jejx=031) 2 % 0-0 BANDS - REL (DIFF) (BEAKER) (test ifcx=6934) 3 % 0-10 NEUTROPHILS - ABS (DIFF) (BEAKER) (test jbbn=1737) 7.59 K/ L 1.80-8.00 LYMPHOCYTES - ABS (DIFF) (BEAKER) (test bjjy=0847) 1.84 K/ L 1.48-4.50 MONOCYTES - ABS (DIFF) (BEAKER) (test zkvz=4907) 0.69 K/ L 0.00-1.30 EOSINOPHILS - ABS (DIFF) (BEAKER) (test wypp=5036) 0.81 K/ L 0.00-0.50 METAMYELOCTYES - ABS (DIFF) (BEAKER) (test 0.23 K/ L 0.00-0.00 flbt=535) BANDS-ABS (DIFF) (BEAKER) (test cbge=4658) 0.3 K/ L 0.0-0.8 TOTAL COUNTED (BEAKER) (test yfda=2124) 100 BANDS + SEGMENTED NEUTROPHILS (BEAKER) (test 7.94 cmqn=2669) WBC MORPHOLOGY (BEAKER) (test fuqi=444) Normal PLT MORPHOLOGY (BEAKER) (test yhhl=894) Normal ANISOCYTOSIS (BEAKER) (test cmjt=596) 1+ few HYPOCHROMIA (BEAKER) (test amvw=915) 1+ few MACROCYTES (BEAKER) (test pxov=442) 1+ few POIKILOCYTES (BEAKER) (test nwdj=265) 1+ few BASIC METABOLIC [id number] 05:36:00 Test Item Value Reference Range Comments SODIUM (BEAKER) (test 129 meq/L 136-145 zajs=577) POTASSIUM (BEAKER) (test 5.2 meq/L 3.5-5.1 fmum=462) CHLORIDE (BEAKER) (test 93 meq/L 98-107 wmrf=146) CO2 (BEAKER) (test 23 meq/L 22-29 otql=406) BLOOD UREA NITROGEN 62 mg/dL 7-21 (BEAKER) (test ffpx=074) CREATININE (BEAKER) (test 5.72 mg/dL 0.57-1.25 uvxl=114) GLUCOSE RANDOM (BEAKER) 107 mg/dL 70-105 (test tfhv=115) CALCIUM (BEAKER) (test 8.2 mg/dL 8.4-10.2 zraw=096) EGFR (BEAKER) (test 8 mL/min/1.73 sq m ESTIMATED GFR IS NOT ckpl=8909) ACCURATE CREATININE CLEARANCE IN PREDICTING GLOMERULAR FILTRATION RATE. ESTIMATED GFR IS NOT APPLICABLE FOR DIALYSIS PATIENTS. [id number] 05:34:00 Test Item Value Reference Range Comments MAGNESIUM (BEAKER) (test belq=932) 1.8 mg/dL 1.6-2.6 RAD, CHEST, 1 VIEW, NON [id number] 11:34:00Reason for exam:->post removal of chest tubesShould this be performed at the bedside?->YesFINAL REPORT Chest one view compared to January 19 Discussion: Airspace opacities left mid to low lung unchanged. Pulmonary congestion also visible on the right unchanged. Left-sided chest tubes have been removed. No gross evidence of effusion or pneumothorax. Central lines in place at the SVC level. Signed: Jony Mcfadden Verified Date/Time: 01/20/2018 11:34:18 Reading Location: [facility] Radiology Reading Room CBC W/PLT COUNT & AUTO [id number] 07:33:00 Test Item Value Reference Range Comments WHITE BLOOD CELL COUNT (BEAKER) (test xahf=562) 11.3 K/ L 3.5-10.5 RED BLOOD CELL COUNT (BEAKER) (test zbrd=421) 3.45 M/ L 3.93-5.22 HEMOGLOBIN (BEAKER) (test xsdz=175) 10.0 GM/DL 11.2-15.7 HEMATOCRIT (BEAKER) (test atpx=999) 31.0 % 34.1-44.9 MEAN CORPUSCULAR VOLUME (BEAKER) (test lxyq=854) 89.9 fL 79.4-94.8 MEAN CORPUSCULAR HEMOGLOBIN (BEAKER) (test 29.0 pg 25.6-32.2 aiij=922) MEAN CORPUSCULAR HEMOGLOBIN CONC (BEAKER) (test 32.3 GM/DL 32.2-35.5 cfal=557) RED CELL DISTRIBUTION WIDTH (BEAKER) (test 15.6 % 11.7-14.4 qerk=977) PLATELET COUNT (BEAKER) (test pgnn=063) 258 K/CU MM 150-450 MEAN PLATELET VOLUME (BEAKER) (test gnqo=337) 9.0 fL 9.4-12.3 NUCLEATED RED BLOOD CELLS (BEAKER) (test 0 /100 WBC 0-0 elct=183) (CELLAVISION MANUAL DIFF)2018-01-20 07:33:00 Test Item Value Reference Range Comments NEUTROPHILS - REL (CELLAVISION)(BEAKER) (test 60 % kztg=9842) LYMPHOCYTES - REL (CELLAVISION)(BEAKER) (test 14 % maaa=5718) MONOCYTES - REL (CELLAVISION)(BEAKER) (test 10 % urix=1286) EOSINOPHILS - REL (CELLAVISION)(BEAKER) (test 13 % ghlr=5895) MYELOCYTES - REL (CELLAVISION)(BEAKER) (test 1 % 0-0 llwd=8336) BANDS - REL (CELLAVISION)(BEAKER) (test kyvp=4377) 2 % 0-10 NEUTROPHILS - ABS (CELLAVISION)(BEAKER) (test 6.78 K/ul 1.56-6.13 hfdh=1749) LYMPHOCYTES - ABS (CELLAVISION)(BEAKER) (test 1.58 K/ul 1.18-3.74 uodp=1483) MONOCYTES - ABS (CELLAVISION)(BEAKER) (test 1.13 K/uL 0.24-0.36 plpr=1986) EOSINOPHILS - ABS (CELLAVISION)(BEAKER) (test 1.47 K/uL 0.04-0.36 hltc=8988) MYELOCYTES-ABS (CELLAVISION)(BEAKER) (test 0.11 K/uL 0.00-0.00 ayvf=7955) BANDS - ABS (CELLAVISION)(BEAKER) (test kaez=9634) 0.23 K/uL 0.00-0.80 TOTAL COUNTED (BEAKER) (test pmmc=9344) 100 RBC MORPHOLOGY (BEAKER) (test ghvc=488) Normal WBC MORPHOLOGY (BEAKER) (test gjyq=292) Normal PLT MORPHOLOGY (BEAKER) (test uriv=037) Normal ARTIFACT (CELLAVISION)(BEAKER) (test lzhj=2629) Present PLATELET CONCENTRATION (CELLAVISION)(BEAKER) (test Adequate acvh=3542) Received comment: User comments: Slide comments:BASIC METABOLIC [id number] 04:25:00 Test Item Value Reference Range Comments SODIUM (BEAKER) (test 132 meq/L 136-145 tfed=671) POTASSIUM (BEAKER) (test 4.6 meq/L 3.5-5.1 bgui=050) CHLORIDE (BEAKER) (test 94 meq/L 98-107 qxpj=342) CO2 (BEAKER) (test 24 meq/L 22-29 eesz=141) BLOOD UREA NITROGEN 47 mg/dL 7-21 (BEAKER) (test hyso=091) CREATININE (BEAKER) (test 5.44 mg/dL 0.57-1.25 xydx=262) GLUCOSE RANDOM (BEAKER) 92 mg/dL 70-105 (test xhti=023) CALCIUM (BEAKER) (test 8.1 mg/dL 8.4-10.2 fvkd=585) EGFR (BEAKER) (test 8 mL/min/1.73 sq m ESTIMATED GFR IS NOT jzaf=5106) ACCURATE CREATININE CLEARANCE IN PREDICTING GLOMERULAR FILTRATION RATE. ESTIMATED GFR IS NOT APPLICABLE FOR DIALYSIS PATIENTS. [id number] 04:23:00 Test Item Value Reference Range Comments MAGNESIUM (BEAKER) (test fayn=959) 2.0 mg/dL 1.6-2.6 HEPATIC FUNCTION [id number] 04:23:00 Test Item Value Reference Range Comments TOTAL PROTEIN (BEAKER) (test rxap=832) 6.5 gm/dL 6.0-8.3 ALBUMIN (BEAKER) (test udhg=3765) 2.5 g/dL 3.5-5.0 BILIRUBIN TOTAL (BEAKER) (test qasd=128) 0.6 mg/dL 0.2-1.2 BILIRUBIN DIRECT (BEAKER) (test hlxy=587) 0.4 mg/dL 0.1-0.5 ALKALINE PHOSPHATASE (BEAKER) (test edeb=882) 133 U/L 40-150 AST (SGOT) (BEAKER) (test wdej=413) 110 U/L 5-34 ALT (SGPT) (BEAKER) (test fhfd=701) 56 U/L 6-55 RAD, CHEST, 1 VIEW, NON [id number] 10:19:00Reason for exam:->pl effusionShould this be performed [...] Verified Date/Time: 01/19/2018 10:19: 24 Reading Location: [facility] Radiology Reading Room CBC W/PLT COUNT & AUTO [id number] 09:09:00 Test Item Value Reference Range Comments WHITE BLOOD CELL COUNT (BEAKER) (test zjpz=384) 11.0 K/ L 3.5-10.5 RED BLOOD CELL COUNT (BEAKER) (test kptm=317) 3.26 M/ L 3.93-5.22 HEMOGLOBIN (BEAKER) (test owme=464) 9.5 GM/DL 11.2-15.7 HEMATOCRIT (BEAKER) (test fahr=403) 29.8 % 34.1-44.9 MEAN CORPUSCULAR VOLUME (BEAKER) (test rjqc=677) 91.4 fL 79.4-94.8 MEAN CORPUSCULAR HEMOGLOBIN (BEAKER) (test 29.1 pg 25.6-32.2 ytbh=953) MEAN CORPUSCULAR HEMOGLOBIN CONC (BEAKER) (test 31.9 GM/DL 32.2-35.5 imki=269) RED CELL DISTRIBUTION WIDTH (BEAKER) (test 15.2 % 11.7-14.4 udjt=551) PLATELET COUNT (BEAKER) (test hund=004) 256 K/CU MM 150-450 MEAN PLATELET VOLUME (BEAKER) (test hmtn=686) 9.0 fL 9.4-12.3 NUCLEATED RED BLOOD CELLS (BEAKER) (test 0 /100 WBC 0-0 xleo=690) (CELLAVISION MANUAL DIFF)2018-01-19 09:09:00 Test Item Value Reference Range Comments NEUTROPHILS - REL (CELLAVISION)(BEAKER) (test 70 % frfm=1481) LYMPHOCYTES - REL (CELLAVISION)(BEAKER) (test 9 % xzse=0688) MONOCYTES - REL (CELLAVISION)(BEAKER) (test 9 % okkb=4966) EOSINOPHILS - REL (CELLAVISION)(BEAKER) (test 5 % ompa=7998) BASOPHILS - REL (CELLAVISION)(BEAKER) (test 4 % egcy=2861) METAMYELOCYTES - REL (CELLAVISION)(BEAKER) (test 1 % 0-0 kgcf=7750) MYELOCYTES - REL (CELLAVISION)(BEAKER) (test 2 % 0-0 irgd=9920) ATYPICAL LYMPHOCYTES - REL (CELLAVISION)(BEAKER) 1 % 0-0 (test wjgk=8608) NEUTROPHILS - ABS (CELLAVISION)(BEAKER) (test 7.70 K/ul 1.56-6.13 nbkr=9407) LYMPHOCYTES - ABS (CELLAVISION)(BEAKER) (test 0.99 K/ul 1.18-3.74 pvuk=4289) MONOCYTES - ABS (CELLAVISION)(BEAKER) (test 0.99 K/uL 0.24-0.36 bwsh=5824) EOSINOPHILS - ABS (CELLAVISION)(BEAKER) (test 0.55 K/uL 0.04-0.36 kdxf=3036) BASOPHILS - ABS (CELLAVISION)(BEAKER) (test 0.44 K/uL 0.01-0.08 zljb=6054) METAMYELOCYTES - ABS (CELLAVISION)(BEAKER) (test 0.11 K/uL 0.00-0.00 ctlb=7668) MYELOCYTES-ABS (CELLAVISION)(BEAKER) (test 0.22 K/uL 0.00-0.00 nqey=9631) ATYPICAL LYMPHOCYTES - ABS (CELLAVISION)(BEAKER) 0.11 K/uL 0.00-0.00 (test ihso=5727) TOTAL COUNTED (BEAKER) (test ffqo=5936) 100 RBC MORPHOLOGY (BEAKER) (test jwva=180) Normal WBC MORPHOLOGY (BEAKER) (test susd=676) Normal PLT MORPHOLOGY (BEAKER) (test togp=570) Normal ARTIFACT (CELLAVISION)(BEAKER) (test sejg=0898) Present PLATELET CONCENTRATION (CELLAVISION)(BEAKER) (test Adequate qwra=2422) Received comment: User comments: Slide comments:BASIC METABOLIC [id number] 05:04:00 Test Item Value Reference Range Comments SODIUM (BEAKER) (test 132 meq/L 136-145 swns=312) POTASSIUM (BEAKER) (test 3.9 meq/L 3.5-5.1 hrmz=716) CHLORIDE (BEAKER) (test 94 meq/L 98-107 rwqr=279) CO2 (BEAKER) (test 25 meq/L 22-29 eoap=963) BLOOD UREA NITROGEN 39 mg/dL 7-21 (BEAKER) (test txer=500) CREATININE (BEAKER) (test 4.84 mg/dL 0.57-1.25 yono=686) GLUCOSE RANDOM (BEAKER) 95 mg/dL 70-105 (test eqjs=448) CALCIUM (BEAKER) (test 8.1 mg/dL 8.4-10.2 imtl=566) EGFR (BEAKER) (test 10 mL/min/1.73 sq m ESTIMATED GFR IS NOT xohg=4435) ACCURATE CREATININE CLEARANCE IN PREDICTING GLOMERULAR FILTRATION RATE. ESTIMATED GFR IS NOT APPLICABLE FOR DIALYSIS PATIENTS. [id number] 05:02:00 Test Item Value Reference Range Comments MAGNESIUM (BEAKER) (test xdcc=284) 1.9 mg/dL 1.6-2.6 RAD, CHEST, 1 VIEW, NON [id number] 07:59:00Reason for exam:->pl effusionShould this be performed at the bedside?->YesIs the patient ? ->UnknownFINAL REPORT Chest one view compared to January 17 Discussion: Interstitial and airspace opacities are similar. Left chest tube , bilateral lines in place. I could not exclude small effusions. No pneumothorax. Signed: Jony Mcfadden Verified Date/Time: 01/18/2018 07: 59:11 Reading Location: [facility] Radiology Reading Room CBC W/PLT COUNT & AUTO [id number] 07:38:00 Test Item Value Reference Range Comments WHITE BLOOD CELL COUNT (BEAKER) (test rtyq=299) 11.5 K/ L 3.5-10.5 RED BLOOD CELL COUNT (BEAKER) (test fheb=666) 3.18 M/ L 3.93-5.22 HEMOGLOBIN (BEAKER) (test sfcm=743) 9.5 GM/DL 11.2-15.7 HEMATOCRIT (BEAKER) (test sbqk=128) 28.9 % 34.1-44.9 MEAN CORPUSCULAR VOLUME (BEAKER) (test coeg=683) 90.9 fL 79.4-94.8 MEAN CORPUSCULAR HEMOGLOBIN (BEAKER) (test 29.9 pg 25.6-32.2 jooj=210) MEAN CORPUSCULAR HEMOGLOBIN CONC (BEAKER) (test 32.9 GM/DL 32.2-35.5 mbws=877) RED CELL DISTRIBUTION WIDTH (BEAKER) (test 14.8 % 11.7-14.4 inmy=458) PLATELET COUNT (BEAKER) (test isqq=461) 265 K/CU MM 150-450 MEAN PLATELET VOLUME (BEAKER) (test rzec=740) 9.1 fL 9.4-12.3 NUCLEATED RED BLOOD CELLS (BEAKER) (test 0 /100 WBC 0-0 deue=405) (CELLAVISION MANUAL DIFF)2018-01-18 07:38:00 Test Item Value Reference Range Comments NEUTROPHILS - REL (CELLAVISION)(BEAKER) (test 72 % fxim=3323) LYMPHOCYTES - REL (CELLAVISION)(BEAKER) (test 7 % mdwu=3478) MONOCYTES - REL (CELLAVISION)(BEAKER) (test 10 % ebpp=1418) EOSINOPHILS - REL (CELLAVISION)(BEAKER) (test 5 % vcys=0780) METAMYELOCYTES - REL (CELLAVISION)(BEAKER) (test 4 % 0-0 vgkb=8496) BANDS - REL (CELLAVISION)(BEAKER) (test rbgg=5038) 2 % 0-10 NEUTROPHILS - ABS (CELLAVISION)(BEAKER) (test 8.28 K/ul 1.56-6.13 spam=7697) LYMPHOCYTES - ABS (CELLAVISION)(BEAKER) (test 0.81 K/ul 1.18-3.74 qkcq=0482) MONOCYTES - ABS (CELLAVISION)(BEAKER) (test 1.15 K/uL 0.24-0.36 ygvh=9875) EOSINOPHILS - ABS (CELLAVISION)(BEAKER) (test 0.58 K/uL 0.04-0.36 mbes=6596) METAMYELOCYTES - ABS (CELLAVISION)(BEAKER) (test 0.46 K/uL 0.00-0.00 bzay=6416) BANDS - ABS (CELLAVISION)(BEAKER) (test ocpm=8743) 0.23 K/uL 0.00-0.80 TOTAL COUNTED (BEAKER) (test ptzt=8415) 100 WBC MORPHOLOGY (BEAKER) (test ujir=563) Normal PLT MORPHOLOGY (BEAKER) (test hqeq=431) Normal POLYCHROMATOPHILLIC RBCS(BEAKER) (test iurk=137) 1+ few ANISOCYTOSIS (BEAKER) (test wlqw=788) 1+ few MICROCYTES (BEAKER) (test ailk=531) 1+ few ARTIFACT (CELLAVISION)(BEAKER) (test avea=6065) Present PLATELET CONCENTRATION (CELLAVISION)(BEAKER) (test Adequate wvpu=3655) Received comment: User comments: Slide comments:BASIC METABOLIC [id number] 07:02:00 Test Item Value Reference Range Comments SODIUM (BEAKER) (test 133 meq/L 136-145 xgqo=959) POTASSIUM (BEAKER) (test 3.8 meq/L 3.5-5.1 gkcy=919) CHLORIDE (BEAKER) (test 96 meq/L 98-107 qjek=409) CO2 (BEAKER) (test 25 meq/L 22-29 xbhi=696) BLOOD UREA NITROGEN 31 mg/dL 7-21 (BEAKER) (test sggz=572) CREATININE (BEAKER) (test 3.94 mg/dL 0.57-1.25 jskw=048) GLUCOSE RANDOM (BEAKER) 85 mg/dL 70-105 (test btww=935) CALCIUM (BEAKER) (test 8.1 mg/dL 8.4-10.2 qjzv=866) EGFR (BEAKER) (test 12 mL/min/1.73 sq m ESTIMATED GFR IS NOT lapd=4851) ACCURATE CREATININE CLEARANCE IN PREDICTING GLOMERULAR FILTRATION RATE. ESTIMATED GFR IS NOT APPLICABLE FOR DIALYSIS PATIENTS. [id number] 07:00:00 Test Item Value Reference Range Comments MAGNESIUM (BEAKER) (test afvm=423) 1.9 mg/dL 1.6-2.6 RAD, CHEST, 1 VIEW, NON [id number] 15:06:00Reason for exam:->pl effusionShould this be performed [...] andleft lower lobe airspace opacities. Signed: Ema Stoneeport Verified Date/Time: 15:06:35 Reading Location: [facility] C0[facility] Transitional Reading Room CBC W/PLT COUNT & AUTO [id number] 11:18:00 Test Item Value Reference Range Comments WHITE BLOOD CELL COUNT (BEAKER) (test pacx=445) 13.5 K/ L 3.5-10.5 RED BLOOD CELL COUNT (BEAKER) (test tgqs=965) 3.24 M/ L 3.93-5.22 HEMOGLOBIN (BEAKER) (test jsyh=037) 9.4 GM/DL 11.2-15.7 HEMATOCRIT (BEAKER) (test ipjt=628) 29.1 % 34.1-44.9 MEAN CORPUSCULAR VOLUME (BEAKER) (test uuus=614) 89.8 fL 79.4-94.8 MEAN CORPUSCULAR HEMOGLOBIN (BEAKER) (test 29.0 pg 25.6-32.2 bafx=462) MEAN CORPUSCULAR HEMOGLOBIN CONC (BEAKER) (test 32.3 GM/DL 32.2-35.5 tsxj=036) RED CELL DISTRIBUTION WIDTH (BEAKER) (test 14.8 % 11.7-14.4 ceku=739) PLATELET COUNT (BEAKER) (test pols=954) 238 K/CU MM 150-450 MEAN PLATELET VOLUME (BEAKER) (test qbgb=669) 9.2 fL 9.4-12.3 NUCLEATED RED BLOOD CELLS (BEAKER) (test 0 /100 WBC 0-0 zlmo=377) (CELLAVISION MANUAL DIFF)2018-01-17 11:18:00 Test Item Value Reference Range Comments NEUTROPHILS - REL (CELLAVISION)(BEAKER) (test 64 % waeu=4595) LYMPHOCYTES - REL (CELLAVISION)(BEAKER) (test 12 % hjrx=2481) MONOCYTES - REL (CELLAVISION)(BEAKER) (test 10 % acrj=7431) EOSINOPHILS - REL (CELLAVISION)(BEAKER) (test 2 % phqu=1870) METAMYELOCYTES - REL (CELLAVISION)(BEAKER) (test 3 % 0-0 tsoq=7629) MYELOCYTES - REL (CELLAVISION)(BEAKER) (test 6 % 0-0 foon=9093) BANDS - REL (CELLAVISION)(BEAKER) (test 3 % 0-10 kutw=9644) NEUTROPHILS - ABS (CELLAVISION)(BEAKER) (test 8.64 K/ul 1.56-6.13 rzev=0010) LYMPHOCYTES - ABS (CELLAVISION)(BEAKER) (test 1.62 K/ul 1.18-3.74 pyxg=5811) MONOCYTES - ABS (CELLAVISION)(BEAKER) (test 1.35 K/uL 0.24-0.36 ckpi=4849) EOSINOPHILS - ABS (CELLAVISION)(BEAKER) (test 0.27 K/uL 0.04-0.36 wotn=9189) METAMYELOCYTES - ABS (CELLAVISION)(BEAKER) (test 0.41 K/uL 0.00-0.00 wyxn=5053) MYELOCYTES-ABS (CELLAVISION)(BEAKER) (test 0.81 K/uL 0.00-0.00 hfcv=0102) BANDS - ABS (CELLAVISION)(BEAKER) (test 0.41 K/uL 0.00-0.80 hwkd=9359) TOTAL COUNTED (BEAKER) (test nijo=1120) 100 PLT MORPHOLOGY (BEAKER) (test dibi=818) Normal SMUDGE CELLS (BEAKER) (test basa=3879) Present POLYCHROMATOPHILLIC RBCS(BEAKER) (test wuzw=259) 2+ moderate HYPOCHROMIA (BEAKER) (test uick=794) 1+ few ANISOCYTOSIS (BEAKER) (test fjzi=013) 1+ few PLATELET CONCENTRATION (CELLAVISION)(BEAKER) Adequate (test yqsd=4579) Received comment: User comments: Slide comments:BASIC METABOLIC [id number] 10:57:00 Test Item Value Reference Range Comments SODIUM (BEAKER) (test 129 meq/L 136-145 lvhs=358) POTASSIUM (BEAKER) (test 4.4 meq/L 3.5-5.1 djcf=416) CHLORIDE (BEAKER) (test 94 meq/L 98-107 zihi=561) CO2 (BEAKER) (test 23 meq/L 22-29 wvgh=262) BLOOD UREA NITROGEN 55 mg/dL 7-21 (BEAKER) (test mvef=734) CREATININE (BEAKER) (test 5.75 mg/dL 0.57-1.25 hgdz=919) GLUCOSE RANDOM (BEAKER) 86 mg/dL 70-105 (test ocfc=296) CALCIUM (BEAKER) (test 8.3 mg/dL 8.4-10.2 xuwt=189) EGFR (BEAKER) (test 8 mL/min/1.73 sq m ESTIMATED GFR IS NOT ivsm=2647) ACCURATE CREATININE CLEARANCE IN PREDICTING GLOMERULAR FILTRATION RATE. ESTIMATED GFR IS NOT APPLICABLE FOR DIALYSIS PATIENTS. [id number] 10:55:00 Test Item Value Reference Range Comments MAGNESIUM (BEAKER) (test sjva=415) 2.2 mg/dL 1.6-2.6 VANCOMYCIN LEVEL, [id number] 05:29:00 Test Item Value Reference Range Comments VANCOMYCIN TROUGH (BEAKER) (test zhtu=348) 15.1 ug/mL 10.0-20.0 CBC W/PLT COUNT & AUTO [id number] 13:23:00 Test Item Value Reference Range Comments WHITE BLOOD CELL COUNT (BEAKER) (test ehfs=255) 15.1 K/ L 3.5-10.5 RED BLOOD CELL COUNT (BEAKER) (test lbtp=068) 2.97 M/ L 3.93-5.22 HEMOGLOBIN (BEAKER) (test hwvu=996) 8.9 GM/DL 11.2-15.7 HEMATOCRIT (BEAKER) (test qnjl=614) 27.5 % 34.1-44.9 MEAN CORPUSCULAR VOLUME (BEAKER) (test cibr=111) 92.6 fL 79.4-94.8 MEAN CORPUSCULAR HEMOGLOBIN (BEAKER) (test 30.0 pg 25.6-32.2 wabs=930) MEAN CORPUSCULAR HEMOGLOBIN CONC (BEAKER) (test 32.4 GM/DL 32.2-35.5 rumg=498) RED CELL DISTRIBUTION WIDTH (BEAKER) (test 15.2 % 11.7-14.4 ejpl=257) PLATELET COUNT (BEAKER) (test ngil=331) 210 K/CU MM 150-450 MEAN PLATELET VOLUME (BEAKER) (test unji=767) 9.2 fL 9.4-12.3 NUCLEATED RED BLOOD CELLS (BEAKER) (test 1 /100 WBC 0-0 bqil=279) (CELLAVISION MANUAL DIFF)2018-01-16 13:23:00 Test Item Value Reference Range Comments NEUTROPHILS - REL (CELLAVISION)(BEAKER) (test 70 % pzbb=6401) LYMPHOCYTES - REL (CELLAVISION)(BEAKER) (test 8 % cqsg=1853) MONOCYTES - REL (CELLAVISION)(BEAKER) (test 14 % clnh=8821) EOSINOPHILS - REL (CELLAVISION)(BEAKER) (test 2 % kzef=2976) BASOPHILS - REL (CELLAVISION)(BEAKER) (test 1 % shay=8429) METAMYELOCYTES - REL (CELLAVISION)(BEAKER) (test 1 % 0-0 lguj=9448) BANDS - REL (CELLAVISION)(BEAKER) (test 3 % 0-10 tnar=3590) ATYPICAL LYMPHOCYTES - REL (CELLAVISION)(BEAKER) 1 % 0-0 (test eqxa=2572) NEUTROPHILS - ABS (CELLAVISION)(BEAKER) (test 10.57 K/ul 1.56-6.13 tpgv=8612) LYMPHOCYTES - ABS (CELLAVISION)(BEAKER) (test 1.21 K/ul 1.18-3.74 ioil=2045) MONOCYTES - ABS (CELLAVISION)(BEAKER) (test 2.11 K/uL 0.24-0.36 qrwm=3286) EOSINOPHILS - ABS (CELLAVISION)(BEAKER) (test 0.30 K/uL 0.04-0.36 dmni=3479) BASOPHILS - ABS (CELLAVISION)(BEAKER) (test 0.15 K/uL 0.01-0.08 osfh=7321) METAMYELOCYTES - ABS (CELLAVISION)(BEAKER) (test 0.15 K/uL 0.00-0.00 jbzi=9048) BANDS - ABS (CELLAVISION)(BEAKER) (test 0.45 K/uL 0.00-0.80 phlo=3384) ATYPICAL LYMPHOCYTES - ABS (CELLAVISION)(BEAKER) 0.15 K/uL 0.00-0.00 (test tyew=5444) TOTAL COUNTED (BEAKER) (test fsgs=5025) 100 MANUAL NRBC PER 100 CELLS (BEAKER) (test 2 /100 WBC 0-0 bxkp=3709) WBC MORPHOLOGY (BEAKER) (test akxp=487) Normal LARGE PLT(BEAKER) (test cifj=8225) Present POLYCHROMATOPHILLIC RBCS(BEAKER) (test waye=107) 1+ few ARTIFACT (CELLAVISION)(BEAKER) (test xvzb=8353) Present PLATELET CONCENTRATION (CELLAVISION)(BEAKER) Adequate (test mgkf=1806) Received comment: User comments: Slide comments:RAD, CHEST, 1 VIEW, NON [id number] 07:49:00Reason for exam:->s/p cardiac surgeryShould this be performed at the bedside?->YesFINAL REPORT Chest one view compared to January 15 Discussion: Left-sided chest tubes, lines, and ill-defined bilateral interstitial and airspace opacities overall similar. No gross effusion or pneumothorax. Signed: [facility] Verified Date/Time: 03/2018 07:49:15 Reading Location: [facility] Radiology Reading Room Electronically signed by: JONY MCFADDEN M.D.on 01/16/2018 07:49 AMBASIC METABOLIC [id number] 06:14:00 Test Item Value Reference Range Comments SODIUM (BEAKER) (test 129 meq/L 136-145 kazc=847) POTASSIUM (BEAKER) (test 4.1 meq/L 3.5-5.1 zjmq=708) CHLORIDE (BEAKER) (test 94 meq/L 98-107 sxlx=754) CO2 (BEAKER) (test 20 meq/L 22-29 zgeu=447) BLOOD UREA NITROGEN 44 mg/dL 7-21 (BEAKER) (test jvzm=763) CREATININE (BEAKER) (test 4.50 mg/dL 0.57-1.25 tnzq=485) GLUCOSE RANDOM (BEAKER) 90 mg/dL 70-105 (test vfhu=689) CALCIUM (BEAKER) (test 8.5 mg/dL 8.4-10.2 ajbz=281) EGFR (BEAKER) (test 11 mL/min/1.73 sq m ESTIMATED GFR IS NOT njqu=3161) ACCURATE CREATININE CLEARANCE IN PREDICTING GLOMERULAR FILTRATION RATE. ESTIMATED GFR IS NOT APPLICABLE FOR DIALYSIS PATIENTS. [id number] 06:10:00 Test Item Value Reference Range Comments PHOSPHORUS (BEAKER) (test uudv=408) 5.8 mg/dL 2.3-4.7 [id number] 06:10:00 Test Item Value Reference Range Comments MAGNESIUM (BEAKER) (test edvh=132) 2.1 mg/dL 1.6-2.6 HEPATIC FUNCTION [id number] 06:10:00 Test Item Value Reference Range Comments TOTAL PROTEIN (BEAKER) (test zpit=823) 6.8 gm/dL 6.0-8.3 ALBUMIN (BEAKER) (test yiun=5144) 2.8 g/dL 3.5-5.0 BILIRUBIN TOTAL (BEAKER) (test asrq=404) 0.9 mg/dL 0.2-1.2 BILIRUBIN DIRECT (BEAKER) (test juie=713) 0.7 mg/dL 0.1-0.5 ALKALINE PHOSPHATASE (BEAKER) (test cuyw=514) 192 U/L 40-150 AST (SGOT) (BEAKER) (test pwhg=133) 1017 U/L 5-34 ALT (SGPT) (BEAKER) (test abrw=524) 435 U/L 6-55 CBC W/PLT COUNT & AUTO [id number] 10:57:00 Test Item Value Reference Range Comments WHITE BLOOD CELL COUNT (BEAKER) (test usuh=116) 12.1 K/ L 3.5-10.5 RED BLOOD CELL COUNT (BEAKER) (test xuaw=630) 2.72 M/ L 3.93-5.22 HEMOGLOBIN (BEAKER) (test lpqv=590) 8.2 GM/DL 11.2-15.7 HEMATOCRIT (BEAKER) (test fryp=193) 24.9 % 34.1-44.9 MEAN CORPUSCULAR VOLUME (BEAKER) (test xnut=630) 91.5 fL 79.4-94.8 MEAN CORPUSCULAR HEMOGLOBIN (BEAKER) (test 30.1 pg 25.6-32.2 gmfk=245) MEAN CORPUSCULAR HEMOGLOBIN CONC (BEAKER) (test 32.9 GM/DL 32.2-35.5 csxs=757) RED CELL DISTRIBUTION WIDTH (BEAKER) (test 15.5 % 11.7-14.4 nxrb=833) PLATELET COUNT (BEAKER) (test okxn=051) 224 K/CU MM 150-450 MEAN PLATELET VOLUME (BEAKER) (test oesu=915) 9.2 fL 9.4-12.3 NUCLEATED RED BLOOD CELLS (BEAKER) (test 2 /100 WBC 0-0 hazd=691) (CELLAVISION MANUAL DIFF)2018-01-15 10:57:00 Test Item Value Reference Range Comments NEUTROPHILS - REL (CELLAVISION)(BEAKER) (test 79 % hzao=4274) LYMPHOCYTES - REL (CELLAVISION)(BEAKER) (test 14 % zeyt=3037) MONOCYTES - REL (CELLAVISION)(BEAKER) (test 2 % zqtz=4384) BASOPHILS - REL (CELLAVISION)(BEAKER) (test 3 % dwdi=3606) MYELOCYTES - REL (CELLAVISION)(BEAKER) (test 1 % 0-0 oqtz=1670) BANDS - REL (CELLAVISION)(BEAKER) (test 1 % 0-10 oylx=5559) NEUTROPHILS - ABS (CELLAVISION)(BEAKER) (test 9.56 K/ul 1.56-6.13 xzxr=7761) LYMPHOCYTES - ABS (CELLAVISION)(BEAKER) (test 1.69 K/ul 1.18-3.74 twom=2850) MONOCYTES - ABS (CELLAVISION)(BEAKER) (test 0.24 K/uL 0.24-0.36 htwx=6700) BASOPHILS - ABS (CELLAVISION)(BEAKER) (test 0.36 K/uL 0.01-0.08 oivk=1460) MYELOCYTES-ABS (CELLAVISION)(BEAKER) (test 0.12 K/uL 0.00-0.00 btkk=0483) BANDS - ABS (CELLAVISION)(BEAKER) (test 0.12 K/uL 0.00-0.80 zjra=9357) TOTAL COUNTED (BEAKER) (test emcj=1033) 100 MANUAL NRBC PER 100 CELLS (BEAKER) (test 3 /100 WBC 0-0 ofxn=0013) RBC MORPHOLOGY (BEAKER) (test zbla=908) Normal WBC MORPHOLOGY (BEAKER) (test fltk=949) Normal PLT MORPHOLOGY (BEAKER) (test lrvi=849) Normal ARTIFACT (CELLAVISION)(BEAKER) (test psfk=0080) Present PLATELET CONCENTRATION (CELLAVISION)(BEAKER) Adequate (test pams=1977) Received comment: User comments: Slide comments:RAD, CHEST, 1 VIEW, NON [id number] 09:45:00Reason for exam:->s/p cardiac surgeryShould this be [...] No pneumothorax is noted. Signed: Salvatore Salinas MDReport Verified Date/Time: 2017 09:45:25 Reading Location: [place] [address] CT Body Reading Room POCT-GLUCOSE [id number] 06:20:00 Test Item Value Reference Range Comments POC-GLUCOSE METER (BEAKER) 85 mg/dL 70-[address] [facility] [address] [facility] (test zioo=0238) [facility] [address] CALCIUM, [id number] 04:29:00 Test Item Value Reference Range Comments CALCIUM IONIZED (BEAKER) (test jahs=126) 1.07 mmol/L 1.12-1.27 PH, BLOOD (BEAKER) (test abop=6400) 7.35 BASIC METABOLIC [id number] 04:22:00 Test Item Value Reference Range Comments SODIUM (BEAKER) (test 134 meq/L 136-145 tvla=742) POTASSIUM (BEAKER) (test 3.9 meq/L 3.5-5.1 unlm=504) CHLORIDE (BEAKER) (test 98 meq/L 98-107 bnft=156) CO2 (BEAKER) (test 21 meq/L 22-29 jzks=767) BLOOD UREA NITROGEN 33 mg/dL 7-21 (BEAKER) (test yqrw=333) CREATININE (BEAKER) (test 3.56 mg/dL 0.57-1.25 zljl=607) GLUCOSE RANDOM (BEAKER) 100 mg/dL 70-105 (test svyq=910) CALCIUM (BEAKER) (test 8.6 mg/dL 8.4-10.2 adnd=807) EGFR (BEAKER) (test 14 mL/min/1.73 sq m ESTIMATED GFR IS NOT szky=9134) ACCURATE CREATININE CLEARANCE IN PREDICTING GLOMERULAR FILTRATION RATE. ESTIMATED GFR IS NOT APPLICABLE FOR DIALYSIS PATIENTS. OXYGEN SATURATION, [id number] 04:22:00 Test Item Value Reference Range Comments O2 SATURATION (MEASURED) (BEAKER) (test yclu=4546) 66.9 % [id number] 04:20:00 Test Item Value Reference Range Comments PHOSPHORUS (BEAKER) (test kgpv=425) 5.1 mg/dL 2.3-4.7 [id number] 04:20:00 Test Item Value Reference Range Comments MAGNESIUM (BEAKER) (test rpxy=421) 1.9 mg/dL 1.6-2.6 BLOOD GAS, [id number] 04:12:00 Test Item Value Reference Range Comments PH ARTERIAL (BEAKER) (test kped=827) 7.35 7.35-7.45 PCO2 ARTERIAL (BEAKER) (test kufn=755) 44 mmHg 35-45 PO2 ARTERIAL (BEAKER) (test yqno=281) 87 mmHg 80-90 O2 SATURATION ARTERIAL (BEAKER) (test pvvs=845) 96.3 % 96.0-97.0 HCO3 ARTERIAL (BEAKER) (test wekc=109) 24 mmol/L 21-29 BASE EXCESS ARTERIAL (BEAKER) (test zeoj=353) -1.5 mmol/L -2.0-3.0 PATIENT TEMPERATURE (BEAKER) (test mkjx=4504) 36.7 C FIO2 (BEAKER) (test zgga=1693) 36.0 % VANCOMYCIN LEVEL, [id number] 12:01:00 Test Item Value Reference Range Comments VANCOMYCIN RANDOM (BEAKER) (test vhln=594) 25.1 ug/mL Reference Range: No NormalsRAD, CHEST, 1 VIEW, NON [id number] 10:18: 00Reason for exam:->s/p cardiac surgeryShould this [...] Garner MDReport Verified Date/Time: 01/14/2018 10:18:22 Reading Location:[facility] C0[facility] Ortho Consult Reading Room Electronically signed by: ESAU GARNER M.D. on 2017 10:18 AMCBC W/PLT COUNT & AUTO [id number] 07:58:00 Test Item Value Reference Range Comments WHITE BLOOD CELL COUNT 11.7 K/ L 3.5-10.5 (BEAKER) (test tpfh=455) RED BLOOD CELL COUNT (BEAKER) 3.06 M/ L 3.93-5.22 (test vhan=205) HEMOGLOBIN (BEAKER) (test 9.0 GM/DL 11.2-15.7 kyto=126) HEMATOCRIT (BEAKER) (test 27.7 % 34.1-44.9 mxhy=648) MEAN CORPUSCULAR VOLUME 90.5 fL 79.4-94.8 Discordant MCV results (BEAKER) (test ysgr=766) compared to previous results; clinical correlation required. MEAN CORPUSCULAR HEMOGLOBIN 29.4 pg 25.6-32.2 (BEAKER) (test vrax=312) MEAN CORPUSCULAR HEMOGLOBIN 32.5 GM/DL 32.2-35.5 CONC (BEAKER) (test qhfd=309) RED CELL DISTRIBUTION WIDTH 15.1 % 11.7-14.4 (BEAKER) (test criy=539) PLATELET COUNT (BEAKER) (test 269 K/CU MM 150-450 Discordant PLT results gqed=047) compared to previous results; clinical correlation required. MEAN PLATELET VOLUME (BEAKER) 9.0 fL 9.4-12.3 (test ckwk=079) NUCLEATED RED BLOOD CELLS 0 /100 WBC 0-0 (BEAKER) (test kzkz=945) (CELLAVISION MANUAL DIFF)2018-01-14 07:58:00 Test Item Value Reference Range Comments NEUTROPHILS - REL (CELLAVISION)(BEAKER) (test 66 % zaso=0369) LYMPHOCYTES - REL (CELLAVISION)(BEAKER) (test 3 % kmgw=8585) MONOCYTES - REL (CELLAVISION)(BEAKER) (test 18 % qsdq=8928) METAMYELOCYTES - REL (CELLAVISION)(BEAKER) (test 1 % 0-0 tovw=1582) MYELOCYTES - REL (CELLAVISION)(BEAKER) (test 2 % 0-0 nhpu=0520) BANDS - REL (CELLAVISION)(BEAKER) (test ppcj=8803) 10 % 0-10 NEUTROPHILS - ABS (CELLAVISION)(BEAKER) (test 7.72 K/ul 1.56-6.13 rcly=9312) LYMPHOCYTES - ABS (CELLAVISION)(BEAKER) (test 0.35 K/ul 1.18-3.74 brue=6456) MONOCYTES - ABS (CELLAVISION)(BEAKER) (test 2.11 K/uL 0.24-0.36 likd=4564) METAMYELOCYTES - ABS (CELLAVISION)(BEAKER) (test 0.12 K/uL 0.00-0.00 moae=2934) MYELOCYTES-ABS (CELLAVISION)(BEAKER) (test 0.23 K/uL 0.00-0.00 oxrz=9645) BANDS - ABS (CELLAVISION)(BEAKER) (test mcbo=6342) 1.17 K/uL 0.00-0.80 TOTAL COUNTED (BEAKER) (test rtoz=0274) 100 WBC MORPHOLOGY (BEAKER) (test qmkl=684) Normal GIANT PLATELETS (BEAKER) (test uzzm=926) Present POLYCHROMATOPHILLIC RBCS(BEAKER) (test dgjb=495) 1+ few ANISOCYTOSIS (BEAKER) (test fmte=244) 1+ few PLATELET CONCENTRATION (CELLAVISION)(BEAKER) (test Adequate eblu=2487) Received comment: User comments: Slide comments:[id number] 04:59:00 Test Item Value Reference Range Comments PHOSPHORUS (BEAKER) (test ahbe=983) 9.1 mg/dL 2.3-4.7 BASIC METABOLIC [id number] 04:56:00 Test Item Value Reference Range Comments SODIUM (BEAKER) (test 139 meq/L 136-145 bxtx=848) POTASSIUM (BEAKER) (test 5.3 meq/L 3.5-5.1 qhby=377) CHLORIDE (BEAKER) (test 105 meq/L 98-107 jocm=981) CO2 (BEAKER) (test 18 meq/L 22-29 ezea=114) BLOOD UREA NITROGEN 34 mg/dL 7-21 (BEAKER) (test hual=612) CREATININE (BEAKER) (test 3.81 mg/dL 0.57-1.25 jkoy=649) GLUCOSE RANDOM (BEAKER) 88 mg/dL 70-105 (test ouwk=947) CALCIUM (BEAKER) (test 9.0 mg/dL 8.4-10.2 ardj=584) EGFR (BEAKER) (test 13 mL/min/1.73 sq m ESTIMATED GFR IS NOT hqrn=3596) ACCURATE CREATININE CLEARANCE IN PREDICTING GLOMERULAR FILTRATION RATE. ESTIMATED GFR IS NOT APPLICABLE FOR DIALYSIS PATIENTS. LACTIC ACID, ARTERIAL, WHOLE [id number] 04:31:00 Test Item Value Reference Range Comments LACTATE BLOOD ARTERIAL (2) (BEAKER) (test 2.9 mmol/L 0.5-2.2 keol=7901) Effective 11/12/2015: Units/Reference Range ChangeNew: 0.5-2.2 mmol/L Previous: 5 -20 mg/[id number] 04:16:00 Test Item Value Reference Range Comments MAGNESIUM (BEAKER) (test ehtz=274) 2.1 mg/dL 1.6-2.6 BLOOD GAS, [id number] 03:58:00 Test Item Value Reference Range Comments PH ARTERIAL (BEAKER) (test qmbd=666) 7.28 7.35-7.45 PCO2 ARTERIAL (BEAKER) (test onwi=167) 42 mmHg 35-45 PO2 ARTERIAL (BEAKER) (test ionq=894) 123 mmHg 80-90 O2 SATURATION ARTERIAL (BEAKER) (test ybbr=250) 98.0 % 96.0-97.0 HCO3 ARTERIAL (BEAKER) (test jyln=886) 19 mmol/L 21-29 BASE EXCESS ARTERIAL (BEAKER) (test ftjj=181) -7.2 mmol/L -2.0-3.0 PATIENT TEMPERATURE (BEAKER) (test hjwd=8767) 36.7 C FIO2 (BEAKER) (test qpsh=7688) 30.0 % CALCIUM, [id number] 03:55:00 Test Item Value Reference Range Comments CALCIUM IONIZED (BEAKER) (test qbxk=989) 1.13 mmol/L 1.12-1.27 PH, BLOOD (BEAKER) (test wxir=7956) 7.27 OXYGEN SATURATION, [id number] 03:54:00 Test Item Value Reference Range Comments O2 SATURATION (MEASURED) (BEAKER) (test fuyo=6295) 71.9 % BLOOD GAS, [id number] 00:24:00 Test Item Value Reference Range Comments PH ARTERIAL (BEAKER) (test wohb=221) 7.26 7.35-7.45 PCO2 ARTERIAL (BEAKER) (test mvcc=517) 44 mmHg 35-45 PO2 ARTERIAL (BEAKER) (test rvqx=407) 147 mmHg 80-90 O2 SATURATION ARTERIAL (BEAKER) (test gavu=411) 98.5 % 96.0-97.0 HCO3 ARTERIAL (BEAKER) (test mwvv=791) 19 mmol/L 21-29 BASE EXCESS ARTERIAL (BEAKER) (test bena=093) -7.3 mmol/L -2.0-3.0 PATIENT TEMPERATURE (BEAKER) (test awql=8221) 37.3 C FIO2 (BEAKER) (test amwv=3856) 50.0 % HEMOGLOBIN AND [id number] 22:44:00 Test Item Value Reference Range Comments HEMOGLOBIN (BEAKER) (test upfd=653) 9.6 GM/DL 11.2-15.7 HEMATOCRIT (BEAKER) (test zxqw=026) 29.8 % 34.1-44.9 LACTIC ACID, ARTERIAL, WHOLE [id number] 21:59:00 Test Item Value Reference Range Comments LACTATE BLOOD ARTERIAL (2) (BEAKER) (test 4.1 mmol/L 0.5-2.2 flgk=8733) Effective 11/12/2015: Units/Reference Range ChangeNew: 0.5-2.2 mmol/L Previous: 5 -20 mg/dLBLOOD GAS, [id number] 21:38:00 Test Item Value Reference Range Comments PH ARTERIAL (BEAKER) (test mcqo=996) 7.28 7.35-7.45 PCO2 ARTERIAL (BEAKER) (test wgbb=748) 38 mmHg 35-45 PO2 ARTERIAL (BEAKER) (test plzd=437) 95 mmHg 80-90 O2 SATURATION ARTERIAL (BEAKER) (test xagq=638) 96.4 % 96.0-97.0 HCO3 ARTERIAL (BEAKER) (test mmeo=464) 17 mmol/L 21-29 BASE EXCESS ARTERIAL (BEAKER) (test lcml=572) -8.6 mmol/L -2.0-3.0 PATIENT TEMPERATURE (BEAKER) (test xdks=5052) 37.1 C FIO2 (BEAKER) (test xdcy=9047) 36.0 % BLOOD GAS, [id number] 17:39:00 Test Item Value Reference Range Comments PH ARTERIAL (BEAKER) (test eoxe=610) 7.34 7.35-7.45 PCO2 ARTERIAL (BEAKER) (test phsa=549) 33 mmHg 35-45 PO2 ARTERIAL (BEAKER) (test zpgj=696) 132 mmHg 80-90 O2 SATURATION ARTERIAL (BEAKER) (test towu=801) 98.5 % 96.0-97.0 HCO3 ARTERIAL (BEAKER) (test zyxu=004) 17 mmol/L 21-29 BASE EXCESS ARTERIAL (BEAKER) (test tkzf=479) -7.4 mmol/L -2.0-3.0 PATIENT TEMPERATURE (BEAKER) (test dqpe=3412) 37.2 C FIO2 (BEAKER) (test wonz=6418) 40.0 % CBC W/PLT COUNT & AUTO [id number] 16:02:00 Test Item Value Reference Range Comments WHITE BLOOD CELL COUNT (BEAKER) (test cwbm=857) 20.8 K/ L 3.5-10.5 RED BLOOD CELL COUNT (BEAKER) (test wrsp=123) 3.35 M/ L 3.93-5.22 HEMOGLOBIN (BEAKER) (test mmgt=093) 9.9 GM/DL 11.2-15.7 HEMATOCRIT (BEAKER) (test ouhf=704) 31.7 % 34.1-44.9 MEAN CORPUSCULAR VOLUME (BEAKER) (test caav=641) 94.6 fL 79.4-94.8 MEAN CORPUSCULAR HEMOGLOBIN (BEAKER) (test 29.6 pg 25.6-32.2 pzse=436) MEAN CORPUSCULAR HEMOGLOBIN CONC (BEAKER) (test 31.2 GM/DL 32.2-35.5 arur=621) RED CELL DISTRIBUTION WIDTH (BEAKER) (test 14.2 % 11.7-14.4 icpn=497) PLATELET COUNT (BEAKER) (test vaod=390) 589 K/CU MM 150-450 MEAN PLATELET VOLUME (BEAKER) (test ffaj=614) 8.6 fL 9.4-12.3 NUCLEATED RED BLOOD CELLS (BEAKER) (test 0 /100 WBC 0-0 nosn=586) RAD, CHEST, 1 VIEW, NON [id number] 15:42:00Reason for exam:->post opShould this be performed [...] and minimal left-sided subcutaneous emphysema. Signed: Jacob Stolleport Verified Date/Time: 01/13/2018 15:42:24 Reading Location: [facility] [id number] Consult Reading Room [facility] METABOLIC [id number] 15:39:00 Test Item Value Reference Range Comments SODIUM (BEAKER) (test 136 meq/L 136-145 lhcl=113) POTASSIUM (BEAKER) (test 4.5 meq/L 3.5-5.1 poga=924) CHLORIDE (BEAKER) (test 106 meq/L 98-107 ctby=320) CO2 (BEAKER) (test 19 meq/L 22-29 wnzx=368) BLOOD UREA NITROGEN 22 mg/dL 7-21 (BEAKER) (test dvvw=764) CREATININE (BEAKER) (test 2.98 mg/dL 0.57-1.25 yekd=548) GLUCOSE RANDOM (BEAKER) 204 mg/dL 70-105 (test hmgt=949) CALCIUM (BEAKER) (test 10.1 mg/dL 8.4-10.2 okbc=409) EGFR (BEAKER) (test 17 mL/min/1.73 sq m ESTIMATED GFR IS NOT vzdf=7915) ACCURATE CREATININE CLEARANCE IN PREDICTING GLOMERULAR FILTRATION RATE. ESTIMATED GFR IS NOT APPLICABLE FOR DIALYSIS PATIENTS. LACTIC ACID, ARTERIAL, WHOLE [id number] 15:19:00 Test Item Value Reference Range Comments LACTATE BLOOD ARTERIAL (2) (BEAKER) (test 3.2 mmol/L 0.5-2.2 lfly=7550) Effective 11/12/2015: Units/Reference Range ChangeNew: 0.5-2.2 mmol/L Previous: 5 -20 mg/dLSODIUM NA-STAT [id number] 14:57:00 Test Item Value Reference Range Comments SODIUM (BEAKER) (test chdr=571) 136 meq/L 135-148 POTASSIUM-STAT [id number] 14:57:00 Test Item Value Reference Range Comments POTASSIUM (BEAKER) (test imin=248) 4.4 meq/L 3.6-5.5 BLOOD GAS, [id number] 14:57:00 Test Item Value Reference Range Comments PH ARTERIAL (BEAKER) (test tmbj=447) 7.22 7.35-7.45 PCO2 ARTERIAL (BEAKER) (test hfhc=951) 52 mmHg 35-45 PO2 ARTERIAL (BEAKER) (test rjit=877) 141 mmHg 80-90 O2 SATURATION ARTERIAL (BEAKER) (test vzoe=614) 98.3 % 96.0-97.0 HCO3 ARTERIAL (BEAKER) (test dttz=751) 21 mmol/L 21-29 BASE EXCESS ARTERIAL (BEAKER) (test cixi=915) -6.9 mmol/L -2.0-3.0 PATIENT TEMPERATURE (BEAKER) (test savs=6621) 36.6 C FIO2 (BEAKER) (test yvhq=4504) 40.0 % GLUCOSE-STAT [id number] 14:57:00 Test Item Value Reference Range Comments GLUCOSE RANDOM (BEAKER) (test irzh=043) 199 mg/dL 70-110 HGB/HCT (H&H) - STAT [id number] 14:57:00 Test Item Value Reference Range Comments HEMOGLOBIN (BEAKER) (test iofj=289) 10.5 g/dL 12.0-15.0 HEMATOCRIT (BEAKER) (test onaz=892) 31.0 % 36.0-45.0 BLOOD GAS, [id number] 12:42:00 Test Item Value Reference Range Comments PH ARTERIAL (BEAKER) (test tsni=082) 7.40 7.35-7.45 PCO2 ARTERIAL (BEAKER) (test xbsw=064) 41 mmHg 35-45 PO2 ARTERIAL (BEAKER) (test utxd=077) 333 mmHg 80-90 O2 SATURATION ARTERIAL (BEAKER) (test wpdj=791) 99.7 % 96.0-97.0 HCO3 ARTERIAL (BEAKER) (test cvtu=754) 25 mmol/L 21-29 BASE EXCESS ARTERIAL (BEAKER) (test itri=477) -0.2 mmol/L -2.0-3.0 PATIENT TEMPERATURE (BEAKER) (test owsl=0707) 36.0 C FIO2 (BEAKER) (test vial=4852) 100.0 % HGB/HCT (H&H) - STAT [id number] 12:42:00 Test Item Value Reference Range Comments HEMOGLOBIN (BEAKER) (test nzwx=830) 8.0 g/dL 12.0-15.0 HEMATOCRIT (BEAKER) (test xdaf=389) 24.0 % 36.0-45.0 GLUCOSE-STAT [id number] 12:41:00 Test Item Value Reference Range Comments GLUCOSE RANDOM (BEAKER) (test fkbc=052) 108 mg/dL 70-110 SODIUM NA-STAT [id number] 12:41:00 Test Item Value Reference Range Comments SODIUM (BEAKER) (test inzr=588) 135 meq/L 135-148 POTASSIUM-STAT [id number] 12:41:00 Test Item Value Reference Range Comments POTASSIUM (BEAKER) (test divx=771) 4.8 meq/L 3.6-5.5 CALCIUM, [id number] 12:41:00 Test Item Value Reference Range Comments CALCIUM IONIZED (BEAKER) (test ftmp=992) 1.08 mmol/L 1.12-1.27 PH, BLOOD (BEAKER) (test jvoi=0296) 7.38 CALCIUM, [id number] 12:21:00 Test Item Value Reference Range Comments CALCIUM IONIZED (BEAKER) (test tajf=760) 1.11 mmol/L 1.12-1.27 PH, BLOOD (BEAKER) (test jxvf=5812) 7.34 HEMOGLOBIN-STAT [id number] 12:21:00 Test Item Value Reference Range Comments HEMOGLOBIN (BEAKER) (test dmvg=554) 8.2 g/dL 12.0-15.0 HEMATOCRIT-STAT [id number] 12:21:00 Test Item Value Reference Range Comments HEMATOCRIT (BEAKER) (test clit=872) 24.0 % 36.0-45.0 BLOOD GAS, [id number] 12:21:00 Test Item Value Reference Range Comments PH ARTERIAL (BEAKER) (test swvk=387) 7.36 7.35-7.45 PCO2 ARTERIAL (BEAKER) (test thqu=389) 49 mmHg 35-45 PO2 ARTERIAL (BEAKER) (test llsz=015) 394 mmHg 80-90 O2 SATURATION ARTERIAL (BEAKER) (test jzuq=943) 99.8 % 96.0-97.0 HCO3 ARTERIAL (BEAKER) (test vmfn=321) 27 mmol/L 21-29 BASE EXCESS ARTERIAL (BEAKER) (test gswm=747) 1.3 mmol/L -2.0-3.0 PATIENT TEMPERATURE (BEAKER) (test rbjt=9617) 36.0 C FIO2 (BEAKER) (test vicy=1746) 100.0 % HGB/HCT (H&H) - STAT [id number] 12:21:00 Test Item Value Reference Range Comments HEMOGLOBIN (BEAKER) (test zhfs=814) 8.2 GM/DL 12.0-15.0 HEMATOCRIT (BEAKER) (test cdzz=458) 24.0 % 36.0-45.0 GLUCOSE-STAT [id number] 12:19:00 Test Item Value Reference Range Comments GLUCOSE RANDOM (BEAKER) (test qnln=803) 105 mg/dL 70-110 SODIUM NA-STAT [id number] 12:19:00 Test Item Value Reference Range Comments SODIUM (BEAKER) (test cnpl=189) 136 meq/L 135-148 POTASSIUM-STAT [id number] 12:19:00 Test Item Value Reference Range Comments POTASSIUM (BEAKER) (test fkfv=733) 4.3 meq/L 3.6-5.5 GLUCOSE-STAT [id number] 12:00:00 Test Item Value Reference Range Comments GLUCOSE RANDOM (BEAKER) (test ezls=293) 105 mg/dL 70-110 SODIUM NA-STAT [id number] 12:00:00 Test Item Value Reference Range Comments SODIUM (BEAKER) (test jqvx=793) 138 meq/L 135-148 POTASSIUM-STAT [id number] 12:00:00 Test Item Value Reference Range Comments POTASSIUM (BEAKER) (test jzla=240) 4.6 meq/L 3.6-5.5 BLOOD GAS, [id number] 12:00:00 Test Item Value Reference Range Comments PH ARTERIAL (BEAKER) (test omgq=028) 7.35 7.35-7.45 PCO2 ARTERIAL (BEAKER) (test zjhl=673) 50 mmHg 35-45 PO2 ARTERIAL (BEAKER) (test gzzh=088) 345 mmHg 80-90 O2 SATURATION ARTERIAL (BEAKER) (test atlt=801) 99.7 % 96.0-97.0 HCO3 ARTERIAL (BEAKER) (test cdaj=193) 27 mmol/L 21-29 BASE EXCESS ARTERIAL (BEAKER) (test rzfe=224) 0.9 mmol/L -2.0-3.0 PATIENT TEMPERATURE (BEAKER) (test wmxr=5618) 36.0 C FIO2 (BEAKER) (test atto=0468) 100.0 % HGB/HCT (H&H) - STAT [id number] 12:00:00 Test Item Value Reference Range Comments HEMOGLOBIN (BEAKER) (test modx=138) 8.3 g/dL 12.0-15.0 HEMATOCRIT (BEAKER) (test cnrm=164) 24.0 % 36.0-45.0 CALCIUM, [id number] 12:00:00 Test Item Value Reference Range Comments CALCIUM IONIZED (BEAKER) (test aive=739) 1.09 mmol/L 1.12-1.27 PH, BLOOD (BEAKER) (test bvzr=5390) 7.33 CBC W/PLT COUNT & AUTO [id number] 09:45:00 Test Item Value Reference Range Comments WHITE BLOOD CELL COUNT (BEAKER) (test ryje=627) 10.0 K/ L 3.5-10.5 RED BLOOD CELL COUNT (BEAKER) (test zgvl=425) 2.48 M/ L 3.93-5.22 HEMOGLOBIN (BEAKER) (test ujey=626) 7.2 GM/DL 11.2-15.7 HEMATOCRIT (BEAKER) (test nzhd=819) 22.4 % 34.1-44.9 MEAN CORPUSCULAR VOLUME (BEAKER) (test ynqr=412) 90.3 fL 79.4-94.8 MEAN CORPUSCULAR HEMOGLOBIN (BEAKER) (test 29.0 pg 25.6-32.2 oiih=084) MEAN CORPUSCULAR HEMOGLOBIN CONC (BEAKER) (test 32.1 GM/DL 32.2-35.5 jrpb=373) RED CELL DISTRIBUTION WIDTH (BEAKER) (test 14.8 % 11.7-14.4 llwo=240) PLATELET COUNT (BEAKER) (test uhir=124) 503 K/CU MM 150-450 MEAN PLATELET VOLUME (BEAKER) (test pqip=695) 8.8 fL 9.4-12.3 NUCLEATED RED BLOOD CELLS (BEAKER) (test 0 /100 WBC 0-0 yzos=527) (CELLAVISION MANUAL DIFF)2018-01-13 09:45:00 Test Item Value Reference Range Comments NEUTROPHILS - REL (CELLAVISION)(BEAKER) (test 71 % ehmb=1307) LYMPHOCYTES - REL (CELLAVISION)(BEAKER) (test 12 % kocj=1020) MONOCYTES - REL (CELLAVISION)(BEAKER) (test 13 % rwvr=5135) BASOPHILS - REL (CELLAVISION)(BEAKER) (test 2 % fqne=8353) MYELOCYTES - REL (CELLAVISION)(BEAKER) (test 2 % 0-0 juje=6325) NEUTROPHILS - ABS (CELLAVISION)(BEAKER) (test 7.10 K/ul 1.56-6.13 bibe=6535) LYMPHOCYTES - ABS (CELLAVISION)(BEAKER) (test 1.20 K/ul 1.18-3.74 mghz=5907) MONOCYTES - ABS (CELLAVISION)(BEAKER) (test 1.30 K/uL 0.24-0.36 hzus=0971) BASOPHILS - ABS (CELLAVISION)(BEAKER) (test 0.20 K/uL 0.01-0.08 aimn=4504) MYELOCYTES-ABS (CELLAVISION)(BEAKER) (test 0.20 K/uL 0.00-0.00 qyfk=5069) TOTAL COUNTED (BEAKER) (test dpbc=8005) 100 WBC MORPHOLOGY (BEAKER) (test bzjq=911) Normal PLT MORPHOLOGY (BEAKER) (test cmon=868) Normal POLYCHROMATOPHILLIC RBCS(BEAKER) (test djdv=869) 1+ few ANISOCYTOSIS (BEAKER) (test zojz=478) 1+ few MICROCYTES (BEAKER) (test bpkh=517) 1+ few POIKILOCYTES (BEAKER) (test bbwz=082) 1+ few ARTIFACT (CELLAVISION)(BEAKER) (test gxed=1187) Present PLATELET CONCENTRATION (CELLAVISION)(BEAKER) (test Increased izuw=9035) Received comment: User comments: Slide comments: SCREEN, [id number] 09:06:00 Test Item Value Reference Range Comments TEST URINE (BEAKER) (test suyb=704) Negative BASIC METABOLIC [id number] 07:42:00 Test Item Value Reference Range Comments SODIUM (BEAKER) (test 134 meq/L 136-145 tdix=371) POTASSIUM (BEAKER) (test 3.8 meq/L 3.5-5.1 kizm=128) CHLORIDE (BEAKER) (test 102 meq/L 98-107 owga=276) CO2 (BEAKER) (test 26 meq/L 22-29 lrwj=085) BLOOD UREA NITROGEN 18 mg/dL 7-21 (BEAKER) (test psmx=565) CREATININE (BEAKER) (test 2.51 mg/dL 0.57-1.25 viso=925) GLUCOSE RANDOM (BEAKER) 97 mg/dL 70-105 (test xril=413) CALCIUM (BEAKER) (test 8.8 mg/dL 8.4-10.2 mjbb=395) EGFR (BEAKER) (test 21 mL/min/1.73 sq m ESTIMATED GFR IS NOT uxsv=0670) ACCURATE CREATININE CLEARANCE IN PREDICTING GLOMERULAR FILTRATION RATE. ESTIMATED GFR IS NOT APPLICABLE FOR DIALYSIS PATIENTS. [id number] 07:40:00 Test Item Value Reference Range Comments PHOSPHORUS (BEAKER) (test tcna=540) 3.7 mg/dL 2.3-4.7 [id number] 07:40:00 Test Item Value Reference Range Comments MAGNESIUM (BEAKER) (test qvmk=015) 1.8 mg/dL 1.6-2.6 LACTIC ACID, ARTERIAL, WHOLE [id number] 06:57:00 Test Item Value Reference Range Comments LACTATE BLOOD ARTERIAL (2) (BEAKER) (test 0.7 mmol/L 0.5-2.2 nnqg=6685) Effective 11/12/2015: Units/Reference Range ChangeNew: 0.5-2.2 mmol/L Previous: 5 -20 mg/[id number] 06:54:00 Test Item Value Reference Range Comments PARTIAL THROMBOPLASTIN TIME (BEAKER) (test 45.0 seconds 22.5-36.0 kfba=661) HEPATITIS B SURFACE [id number] 21:25:00 Test Item Value Reference Range Comments HEPATITIS B SURFACE ANTIGEN (2) (BEAKER) (test Nonreactive Nonreactive kmtp=7158) CBC W/PLT COUNT & AUTO [id number] 08:29:00 Test Item Value Reference Range Comments WHITE BLOOD CELL COUNT (BEAKER) (test seam=655) 10.2 K/ L 3.5-10.5 RED BLOOD CELL COUNT (BEAKER) (test cmcd=038) 2.55 M/ L 3.93-5.22 HEMOGLOBIN (BEAKER) (test srcv=036) 7.3 GM/DL 11.2-15.7 HEMATOCRIT (BEAKER) (test oyns=921) 23.2 % 34.1-44.9 MEAN CORPUSCULAR VOLUME (BEAKER) (test roen=313) 91.0 fL 79.4-94.8 MEAN CORPUSCULAR HEMOGLOBIN (BEAKER) (test 28.6 pg 25.6-32.2 xcbp=839) MEAN CORPUSCULAR HEMOGLOBIN CONC (BEAKER) (test 31.5 GM/DL 32.2-35.5 amyt=254) RED CELL DISTRIBUTION WIDTH (BEAKER) (test 15.2 % 11.7-14.4 gnyu=363) PLATELET COUNT (BEAKER) (test qgdu=122) 435 K/CU MM 150-450 MEAN PLATELET VOLUME (BEAKER) (test phrq=155) 8.7 fL 9.4-12.3 NUCLEATED RED BLOOD CELLS (BEAKER) (test 0 /100 WBC 0-0 ycrr=722) (CELLAVISION MANUAL DIFF)2018-01-12 08:29:00 Test Item Value Reference Range Comments NEUTROPHILS - REL (CELLAVISION)(BEAKER) (test 64 % axyl=8600) LYMPHOCYTES - REL (CELLAVISION)(BEAKER) (test 14 % dxrk=6290) MONOCYTES - REL (CELLAVISION)(BEAKER) (test 15 % zhyy=5255) EOSINOPHILS - REL (CELLAVISION)(BEAKER) (test 2 % qkzt=1894) BASOPHILS - REL (CELLAVISION)(BEAKER) (test 1 % qizw=8305) METAMYELOCYTES - REL (CELLAVISION)(BEAKER) (test 1 % 0-0 idxg=4502) MYELOCYTES - REL (CELLAVISION)(BEAKER) (test 3 % 0-0 hufb=4373) NEUTROPHILS - ABS (CELLAVISION)(BEAKER) (test 6.53 K/ul 1.56-6.13 epbc=2917) LYMPHOCYTES - ABS (CELLAVISION)(BEAKER) (test 1.43 K/ul 1.18-3.74 oxgd=2078) MONOCYTES - ABS (CELLAVISION)(BEAKER) (test 1.53 K/uL 0.24-0.36 ucfa=0576) EOSINOPHILS - ABS (CELLAVISION)(BEAKER) (test 0.20 K/uL 0.04-0.36 vawb=5282) BASOPHILS - ABS (CELLAVISION)(BEAKER) (test 0.10 K/uL 0.01-0.08 nayv=4113) METAMYELOCYTES - ABS (CELLAVISION)(BEAKER) (test 0.10 K/uL 0.00-0.00 erzq=7769) MYELOCYTES-ABS (CELLAVISION)(BEAKER) (test 0.31 K/uL 0.00-0.00 dpqd=3295) TOTAL COUNTED (BEAKER) (test borm=3619) 100 MANUAL NRBC PER 100 CELLS (BEAKER) (test 1 /100 WBC 0-0 xceg=9220) RBC MORPHOLOGY (BEAKER) (test esat=490) Normal PLT MORPHOLOGY (BEAKER) (test ezow=689) Normal SMUDGE CELLS (BEAKER) (test zlof=4630) Present PLATELET CONCENTRATION (CELLAVISION)(BEAKER) Adequate (test ufmg=4202) Received comment: User comments: Slide comments:LACTIC ACID, VENOUS, WHOLE [id number] 06:59:00 Test Item Value Reference Range Comments LACTATE BLOOD VENOUS (2) (BEAKER) (test 0.5 mmol/L 0.5-2.2 gpop=9027) Effective 11/12/2015: Units/Reference Range ChangeNew: 0.5-2.2 mmol/L Previous: 5 -20 mg/dLBASIC METABOLIC [id number] 05:22:00 Test Item Value Reference Range Comments SODIUM (BEAKER) (test 132 meq/L 136-145 nqxy=435) POTASSIUM (BEAKER) (test 4.0 meq/L 3.5-5.1 xgbi=189) CHLORIDE (BEAKER) (test 99 meq/L 98-107 txxi=568) CO2 (BEAKER) (test 24 meq/L 22-29 mjeg=531) BLOOD UREA NITROGEN 46 mg/dL 7-21 (BEAKER) (test qwgx=888) CREATININE (BEAKER) (test 4.45 mg/dL 0.57-1.25 qfof=632) GLUCOSE RANDOM (BEAKER) 98 mg/dL 70-105 (test stob=208) CALCIUM (BEAKER) (test 8.2 mg/dL 8.4-10.2 jpia=539) EGFR (BEAKER) (test 11 mL/min/1.73 sq m ESTIMATED GFR IS NOT onnj=5142) ACCURATE CREATININE CLEARANCE IN PREDICTING GLOMERULAR FILTRATION RATE. ESTIMATED GFR IS NOT APPLICABLE FOR DIALYSIS PATIENTS. [id number] 05:03:00 Test Item Value Reference Range Comments PARTIAL THROMBOPLASTIN TIME (BEAKER) (test 41.7 seconds 22.5-36.0 pvzb=606) [id number] 21:25:00 Test Item Value Reference Range Comments PARTIAL THROMBOPLASTIN TIME (BEAKER) (test 37.9 seconds 22.5-36.0 jsse=921) [id number] 18:21:00 Test Item Value Reference Range Comments PARTIAL THROMBOPLASTIN TIME (BEAKER) (test > seconds 22.5-36.0 alxl=782) HEMOGLOBIN AND [id number] 13:26:00 Test Item Value Reference Range Comments HEMOGLOBIN (BEAKER) (test yyfr=637) 7.1 GM/DL 11.2-15.7 HEMATOCRIT (BEAKER) (test gpxq=972) 22.6 % 34.1-44.9 [id number] 09:10:00 Test Item Value Reference Range Comments PARTIAL THROMBOPLASTIN TIME (BEAKER) (test 40.5 seconds 22.5-36.0 ejbm=172) CBC W/PLT COUNT & AUTO [id number] 08:47:00 Test Item Value Reference Range Comments WHITE BLOOD CELL COUNT (BEAKER) (test ewzk=914) 13.0 K/ L 3.5-10.5 RED BLOOD CELL COUNT (BEAKER) (test baxh=384) 2.41 M/ L 3.93-5.22 HEMOGLOBIN (BEAKER) (test bmxm=838) 6.8 GM/DL 11.2-15.7 HEMATOCRIT (BEAKER) (test krju=191) 22.6 % 34.1-44.9 MEAN CORPUSCULAR VOLUME (BEAKER) (test pjms=833) 93.8 fL 79.4-94.8 MEAN CORPUSCULAR HEMOGLOBIN (BEAKER) (test 28.2 pg 25.6-32.2 wfdh=345) MEAN CORPUSCULAR HEMOGLOBIN CONC (BEAKER) (test 30.1 GM/DL 32.2-35.5 qrwm=389) RED CELL DISTRIBUTION WIDTH (BEAKER) (test 15.9 % 11.7-14.4 annt=047) PLATELET COUNT (BEAKER) (test knuj=337) 369 K/CU MM 150-450 MEAN PLATELET VOLUME (BEAKER) (test dvqt=204) 9.4 fL 9.4-12.3 NUCLEATED RED BLOOD CELLS (BEAKER) (test 0 /100 WBC 0-0 xdks=958) (CELLAVISION MANUAL DIFF)2018-01-11 08:47:00 Test Item Value Reference Range Comments NEUTROPHILS - REL (CELLAVISION)(BEAKER) (test 75 % gzjb=9310) LYMPHOCYTES - REL (CELLAVISION)(BEAKER) (test 9 % bqzh=8578) MONOCYTES - REL (CELLAVISION)(BEAKER) (test 10 % wfnf=7889) EOSINOPHILS - REL (CELLAVISION)(BEAKER) (test 1 % rbpl=1334) MYELOCYTES - REL (CELLAVISION)(BEAKER) (test 5 % 0-0 qdbx=1877) NEUTROPHILS - ABS (CELLAVISION)(BEAKER) (test 9.75 K/ul 1.56-6.13 bpwg=0175) LYMPHOCYTES - ABS (CELLAVISION)(BEAKER) (test 1.17 K/ul 1.18-3.74 hijw=7321) MONOCYTES - ABS (CELLAVISION)(BEAKER) (test 1.30 K/uL 0.24-0.36 jimm=2655) EOSINOPHILS - ABS (CELLAVISION)(BEAKER) (test 0.13 K/uL 0.04-0.36 pyzs=6045) MYELOCYTES-ABS (CELLAVISION)(BEAKER) (test 0.65 K/uL 0.00-0.00 deox=7575) TOTAL COUNTED (BEAKER) (test wmqf=6250) 100 RBC MORPHOLOGY (BEAKER) (test uvxt=868) Normal WBC MORPHOLOGY (BEAKER) (test knaz=568) Normal PLT MORPHOLOGY (BEAKER) (test plhs=595) Normal ARTIFACT (CELLAVISION)(BEAKER) (test xtbz=9097) Present PLATELET CONCENTRATION (CELLAVISION)(BEAKER) (test Adequate gpvm=6368) Received comment: User comments: Slide comments:BASIC METABOLIC [id number] 07:00:00 Test Item Value Reference Range Comments SODIUM (BEAKER) (test 132 meq/L 136-145 fpyz=173) POTASSIUM (BEAKER) (test 4.4 meq/L 3.5-5.1 atgk=270) CHLORIDE (BEAKER) (test 95 meq/L 98-107 yjnh=936) CO2 (BEAKER) (test 22 meq/L 22-29 kksu=381) BLOOD UREA NITROGEN 40 mg/dL 7-21 (BEAKER) (test nvou=266) CREATININE (BEAKER) (test 4.03 mg/dL 0.57-1.25 mkyl=827) GLUCOSE RANDOM (BEAKER) 149 mg/dL 70-105 (test mmnu=021) CALCIUM (BEAKER) (test 7.9 mg/dL 8.4-10.2 sahy=108) EGFR (BEAKER) (test 12 mL/min/1.73 sq m ESTIMATED GFR IS NOT ixbc=6417) ACCURATE CREATININE CLEARANCE IN PREDICTING GLOMERULAR FILTRATION RATE. ESTIMATED GFR IS NOT APPLICABLE FOR DIALYSIS PATIENTS. [id number] 06:52:00 Test Item Value Reference Range Comments PHOSPHORUS (BEAKER) (test vkif=089) 5.8 mg/dL 2.3-4.7 [id number] 06:52:00 Test Item Value Reference Range Comments MAGNESIUM (BEAKER) (test ttla=039) 2.5 mg/dL 1.6-2.6 [id number] 06:38:00 Test Item Value Reference Range Comments PARTIAL THROMBOPLASTIN TIME (BEAKER) (test > seconds 22.5-36.0 xwgq=942) RAD, CHEST, 1 VIEW, NON [id number] 04:17:00Reason for exam:-> IntubatedShould this be performed [...] contours are unchanged.Additional findings: None. Signed: JR Lauren, Katharine LONGeport Verified Date/Time: 01/10/2018 04:17:46 Reading Location: [address] Reading Room Electronically signed by: KATHARINE AGUILAR on 04:17 [id number] 04:15:00 Test Item Value Reference Range Comments D-DIMER QUANTITATIVE (BEAKER) (test tahl=426) 6.95 MG/L FEU <0.50 Intended Use: The D-Dimer Assay can be used to aid in the diagnosis of Deep Vein Thrombosis (DVT) and Pulmonary Embolism Disease (PED).In patients with low pre-test probability, various studies concerning STA Liatest D-dimer test have reported that with a cutoff value of 0.50 MG/L FEU, the Negative Predictive Value (NPV) regarding the exclusion of thrombosis is within 95-100% range.[id number] 04:07:00 Test Item Value Reference Range Comments PARTIAL THROMBOPLASTIN TIME (BEAKER) (test 84.6 seconds 22.5-36.0 trtq=528) BASIC METABOLIC [id number] 04:06:00 Test Item Value Reference Range Comments SODIUM (BEAKER) (test 135 meq/L 136-145 bxvo=403) POTASSIUM (BEAKER) (test 4.5 meq/L 3.5-5.1 hjak=631) CHLORIDE (BEAKER) (test 100 meq/L 98-107 hqhu=938) CO2 (BEAKER) (test 25 meq/L 22-29 dfzj=208) BLOOD UREA NITROGEN 29 mg/dL 7-21 (BEAKER) (test tniq=947) CREATININE (BEAKER) (test 2.94 mg/dL 0.57-1.25 iaxl=524) GLUCOSE RANDOM (BEAKER) 102 mg/dL 70-105 (test ngof=620) CALCIUM (BEAKER) (test 8.2 mg/dL 8.4-10.2 kjkp=318) EGFR (BEAKER) (test 17 mL/min/1.73 sq m ESTIMATED GFR IS NOT jqxf=4017) ACCURATE CREATININE CLEARANCE IN PREDICTING GLOMERULAR FILTRATION RATE. ESTIMATED GFR IS NOT APPLICABLE FOR DIALYSIS PATIENTS. LACTIC ACID, ARTERIAL, WHOLE [id number] 04:05:00 Test Item Value Reference Range Comments LACTATE BLOOD ARTERIAL (2) (BEAKER) (test 0.5 mmol/L 0.5-2.2 djuc=7729) Effective 11/12/2015: Units/Reference Range ChangeNew: 0.5-2.2 mmol/L Previous: 5 -20 mg/[id number] 04:05:00 Test Item Value Reference Range Comments PHOSPHORUS (BEAKER) (test awvu=689) 4.3 mg/dL 2.3-4.7 [id number] 04:05:00 Test Item Value Reference Range Comments MAGNESIUM (BEAKER) (test psug=193) 2.4 mg/dL 1.6-2.6 LACTATE DEHYDROGENASE (LDH)2018-01-10 04:05:00 Test Item Value Reference Range Comments LACTATE DEHYDROGENASE (BEAKER) (test geiv=908) 348 U/L 125-220 CBC W/PLT COUNT & AUTO [id number] 03:49:00 Test Item Value Reference Range Comments WHITE BLOOD CELL COUNT (BEAKER) (test jocu=600) 15.3 K/ L 3.5-10.5 RED BLOOD CELL COUNT (BEAKER) (test oitu=643) 2.45 M/ L 3.93-5.22 HEMOGLOBIN (BEAKER) (test lmhd=750) 7.2 GM/DL 11.2-15.7 HEMATOCRIT (BEAKER) (test kuya=433) 22.6 % 34.1-44.9 MEAN CORPUSCULAR VOLUME (BEAKER) (test ctoj=194) 92.2 fL 79.4-94.8 MEAN CORPUSCULAR HEMOGLOBIN (BEAKER) (test 29.4 pg 25.6-32.2 skrw=410) MEAN CORPUSCULAR HEMOGLOBIN CONC (BEAKER) (test 31.9 GM/DL 32.2-35.5 nywm=154) RED CELL DISTRIBUTION WIDTH (BEAKER) (test 15.9 % 11.7-14.4 anjx=000) PLATELET COUNT (BEAKER) (test bjij=237) 308 K/CU MM 150-450 MEAN PLATELET VOLUME (BEAKER) (test wulq=801) 9.0 fL 9.4-12.3 NUCLEATED RED BLOOD CELLS (BEAKER) (test 0 /100 WBC 0-0 fuyo=721) NEUTROPHILS RELATIVE PERCENT (BEAKER) (test 70 % arhk=530) LYMPHOCYTES RELATIVE PERCENT (BEAKER) (test 10 % dtqj=004) MONOCYTES RELATIVE PERCENT (BEAKER) (test 15 % swvb=053) EOSINOPHILS RELATIVE PERCENT (BEAKER) (test 1 % qcuf=181) BASOPHILS RELATIVE PERCENT (BEAKER) (test 0 % cyvd=209) NEUTROPHILS ABSOLUTE COUNT (BEAKER) (test 10.71 K/ L 1.56-6.13 exsz=546) LYMPHOCYTES ABSOLUTE COUNT (BEAKER) (test 1.46 K/ L 1.18-3.74 xytp=259) MONOCYTES ABSOLUTE COUNT (BEAKER) (test 2.29 K/ L 0.24-0.36 wyqu=031) EOSINOPHILS ABSOLUTE COUNT (BEAKER) (test 0.12 K/ L 0.04-0.36 bjbv=447) BASOPHILS ABSOLUTE COUNT (BEAKER) (test 0.05 K/ L 0.01-0.08 lllu=021) IMMATURE GRANULOCYTES-RELATIVE PERCENT (BEAKER) 4 % 0-1 (test iqvf=9448) VANCOMYCIN LEVEL, [id number] 15:26:00 Test Item Value Reference Range Comments VANCOMYCIN TROUGH (BEAKER) (test dgtd=977) 14.7 ug/mL 10.0-20.0 CBC W/PLT COUNT & AUTO [id number] 07:34:00 Test Item Value Reference Range Comments WHITE BLOOD CELL COUNT (BEAKER) (test twqu=542) 16.7 K/ L 3.5-10.5 RED BLOOD CELL COUNT (BEAKER) (test yncc=547) 2.49 M/ L 3.93-5.22 HEMOGLOBIN (BEAKER) (test pvko=033) 7.3 GM/DL 11.2-15.7 HEMATOCRIT (BEAKER) (test dypg=255) 23.1 % 34.1-44.9 MEAN CORPUSCULAR VOLUME (BEAKER) (test luso=914) 92.8 fL 79.4-94.8 MEAN CORPUSCULAR HEMOGLOBIN (BEAKER) (test 29.3 pg 25.6-32.2 qyab=636) MEAN CORPUSCULAR HEMOGLOBIN CONC (BEAKER) (test 31.6 GM/DL 32.2-35.5 emgg=547) RED CELL DISTRIBUTION WIDTH (BEAKER) (test 16.2 % 11.7-14.4 fqeg=656) PLATELET COUNT (BEAKER) (test kofz=301) 317 K/CU MM 150-450 MEAN PLATELET VOLUME (BEAKER) (test wrqt=811) 9.5 fL 9.4-12.3 NUCLEATED RED BLOOD CELLS (BEAKER) (test 0 /100 WBC 0-0 wzjr=804) (CELLAVISION MANUAL DIFF)2018-01-09 07:34:00 Test Item Value Reference Range Comments NEUTROPHILS - REL (CELLAVISION)(BEAKER) (test 71 % yccz=9322) LYMPHOCYTES - REL (CELLAVISION)(BEAKER) (test 5 % hoos=9924) MONOCYTES - REL (CELLAVISION)(BEAKER) (test 9 % tjgb=2674) EOSINOPHILS - REL (CELLAVISION)(BEAKER) (test 1 % updd=4909) METAMYELOCYTES - REL (CELLAVISION)(BEAKER) (test 1 % 0-0 rqwr=4355) MYELOCYTES - REL (CELLAVISION)(BEAKER) (test 1 % 0-0 txqx=9034) BANDS - REL (CELLAVISION)(BEAKER) (test 12 % 0-10 hvvs=0833) NEUTROPHILS - ABS (CELLAVISION)(BEAKER) (test 11.86 K/ul 1.56-6.13 nimm=8761) LYMPHOCYTES - ABS (CELLAVISION)(BEAKER) (test 0.84 K/ul 1.18-3.74 yjuu=2398) MONOCYTES - ABS (CELLAVISION)(BEAKER) (test 1.50 K/uL 0.24-0.36 rtjy=7291) EOSINOPHILS - ABS (CELLAVISION)(BEAKER) (test 0.17 K/uL 0.04-0.36 owwj=0599) METAMYELOCYTES - ABS (CELLAVISION)(BEAKER) (test 0.17 K/uL 0.00-0.00 cxmt=7518) MYELOCYTES-ABS (CELLAVISION)(BEAKER) (test 0.17 K/uL 0.00-0.00 zyvb=0087) BANDS - ABS (CELLAVISION)(BEAKER) (test 2.00 K/uL 0.00-0.80 fksw=6881) TOTAL COUNTED (BEAKER) (test jray=1403) 100 RBC MORPHOLOGY (BEAKER) (test oada=014) Normal WBC MORPHOLOGY (BEAKER) (test mibz=664) Normal PLT MORPHOLOGY (BEAKER) (test ntyu=683) Normal ARTIFACT (CELLAVISION)(BEAKER) (test glgr=0472) Present PLATELET CONCENTRATION (CELLAVISION)(BEAKER) Adequate (test jxii=6518) Received comment: User comments: Slide comments:BASIC METABOLIC [id number] 06:46:00 Test Item Value Reference Range Comments SODIUM (BEAKER) (test 135 meq/L 136-145 bcga=680) POTASSIUM (BEAKER) (test 4.5 meq/L 3.5-5.1 mbjy=756) CHLORIDE (BEAKER) (test 102 meq/L 98-107 vrvt=505) CO2 (BEAKER) (test 26 meq/L 22-29 bjmf=716) BLOOD UREA NITROGEN 16 mg/dL 7-21 (BEAKER) (test wwrc=489) CREATININE (BEAKER) (test 1.59 mg/dL 0.57-1.25 hpzd=294) GLUCOSE RANDOM (BEAKER) 98 mg/dL 70-105 (test ohun=444) CALCIUM (BEAKER) (test 8.7 mg/dL 8.4-10.2 dxqe=846) EGFR (BEAKER) (test 35 mL/min/1.73 sq m ESTIMATED GFR IS NOT lfof=5524) ACCURATE CREATININE CLEARANCE IN PREDICTING GLOMERULAR FILTRATION RATE. ESTIMATED GFR IS NOT APPLICABLE FOR DIALYSIS PATIENTS. LACTATE DEHYDROGENASE (LDH)2018-01-09 06:44:00 Test Item Value Reference Range Comments LACTATE DEHYDROGENASE (BEAKER) (test nopo=213) 398 U/L 125-220 BLOOD GAS, [id number] 06:37:00 Test Item Value Reference Range Comments PH ARTERIAL (BEAKER) (test nmic=787) 7.41 7.35-7.45 PCO2 ARTERIAL (BEAKER) (test mayz=065) 46 mmHg 35-45 PO2 ARTERIAL (BEAKER) (test iozm=417) 95 mmHg 80-90 O2 SATURATION ARTERIAL (BEAKER) (test mjdc=696) 97.4 % 96.0-97.0 HCO3 ARTERIAL (BEAKER) (test wtlm=288) 29 mmol/L 21-29 BASE EXCESS ARTERIAL (BEAKER) (test gybd=434) 3.5 mmol/L -2.0-3.0 PATIENT TEMPERATURE (BEAKER) (test otrk=2277) 36.5 C FIO2 (BEAKER) (test imuj=0378) 36.0 % LACTIC ACID, ARTERIAL, WHOLE [id number] 06:37:00 Test Item Value Reference Range Comments LACTATE BLOOD ARTERIAL (2) (BEAKER) (test 0.5 mmol/L 0.5-2.2 uhvs=4712) Effective 11/12/2015: Units/Reference Range ChangeNew: 0.5-2.2 mmol/L Previous: 5 -20 mg/[id number] 06:34:00 Test Item Value Reference Range Comments D-DIMER QUANTITATIVE (BEAKER) (test dqfj=670) 4.90 MG/L FEU <0.50 Intended Use: The D-Dimer Assay can be used to aid in the diagnosis of Deep Vein Thrombosis (DVT) and Pulmonary Embolism Disease (PED).In patients with low pre-test probability, various studies concerning STA Liatest D-dimer test have reported that with a cutoff value of 0.50 MG/L FEU, the Negative Predictive Value (NPV) regarding the exclusion of thrombosis is within 95-100% range.[id number] 06:26:00 Test Item Value Reference Range Comments PARTIAL THROMBOPLASTIN TIME (BEAKER) (test 79.8 seconds 22.5-36.0 bjmq=691) BLOOD [id number] 06:00:00 Test Item Value Reference Range Comments CULTURE (BEAKER) (test wvzn=3384) No growth in 5 days BLOOD [id number] 06:00:00 Test Item Value Reference Range Comments CULTURE (BEAKER) (test xxyf=4761) No growth in 5 days TROPONIN [id number] 00:34:00 Test Item Value Reference Range Comments TROPONIN I (BEAKER) (test hgkr=157) < ng/mL 0.00-0.03 Troponin I (TnI) levels [...] failure, acidosis, acute neurological disease, and persistent tachyarrhythmia.[id number] 00:26:00 Test Item Value Reference Range Comments PHOSPHORUS (BEAKER) (test tqey=968) 2.3 mg/dL 2.3-4.7 [id number] 00:26:00 Test Item Value Reference Range Comments MAGNESIUM (BEAKER) (test sawr=035) 1.7 mg/dL 1.6-2.6 BASIC METABOLIC [id number] 00:26:00 Test Item Value Reference Range Comments SODIUM (BEAKER) (test 134 meq/L 136-145 oeho=045) POTASSIUM (BEAKER) (test 4.4 meq/L 3.5-5.1 mabn=312) CHLORIDE (BEAKER) (test 101 meq/L 98-107 adsc=586) CO2 (BEAKER) (test 25 meq/L 22-29 ysyw=301) BLOOD UREA NITROGEN 18 mg/dL 7-21 (BEAKER) (test cdaq=363) CREATININE (BEAKER) (test 1.74 mg/dL 0.57-1.25 jksi=317) GLUCOSE RANDOM (BEAKER) 104 mg/dL 70-105 (test cgyg=404) CALCIUM (BEAKER) (test 8.7 mg/dL 8.4-10.2 wcio=605) EGFR (BEAKER) (test 31 mL/min/1.73 sq m ESTIMATED GFR IS NOT bqxn=0969) ACCURATE CREATININE CLEARANCE IN PREDICTING GLOMERULAR FILTRATION RATE. ESTIMATED GFR IS NOT APPLICABLE FOR DIALYSIS PATIENTS. [id number] 22:18:00 Test Item Value Reference Range Comments PARTIAL THROMBOPLASTIN TIME (BEAKER) (test 76.0 seconds 22.5-36.0 rncn=106) C. DIFFICILE GDH [id number] 15:58:00 Test Item Value Reference Range Comments CDT TOXIN (test Negative Negative yhxf=[id number]) CDT GDH ANTIGEN (test Negative Negative No indication of Clostridium dqnz=[id number]) difficile infection and no colonization. Discontinue enteric isolation and therapy. Testing performed by [employer] Rapid Cassette Assay. For GDH, published sensitivity of the assay is 98.7% compared to cytotoxicity testing. For Toxin AB, published sensitivity is 87.8% and specificity 99.4% compared to cytotoxicity testing.Verification of kit performance was done by the [facility] prior to clinical use.[id number] 14:59:00 Test Item Value Reference Range Comments PARTIAL THROMBOPLASTIN TIME (BEAKER) (test 74.2 seconds 22.5-36.0 afwr=080) OCCULT BLOOD, [id number] 08:18:00 Test Item Value Reference Range Comments FECAL OCCULT BLOOD (BEAKER) (test cdgp=938) Positive Negative [id number] 08:17:00 Test Item Value Reference Range Comments PARTIAL THROMBOPLASTIN TIME (BEAKER) (test 61.5 seconds 22.5-36.0 qrcp=757) CBC W/PLT COUNT & AUTO [id number] 08:14:00 Test Item Value Reference Range Comments WHITE BLOOD CELL COUNT (BEAKER) (test fwae=663) 21.2 K/ L 3.5-10.5 RED BLOOD CELL COUNT (BEAKER) (test syrl=979) 2.77 M/ L 3.93-5.22 HEMOGLOBIN (BEAKER) (test lraa=183) 8.1 GM/DL 11.2-15.7 HEMATOCRIT (BEAKER) (test mcmj=643) 25.8 % 34.1-44.9 MEAN CORPUSCULAR VOLUME (BEAKER) (test oyny=640) 93.1 fL 79.4-94.8 MEAN CORPUSCULAR HEMOGLOBIN (BEAKER) (test 29.2 pg 25.6-32.2 bunx=106) MEAN CORPUSCULAR HEMOGLOBIN CONC (BEAKER) (test 31.4 GM/DL 32.2-35.5 bsuh=400) RED CELL DISTRIBUTION WIDTH (BEAKER) (test 16.7 % 11.7-14.4 nudf=851) PLATELET COUNT (BEAKER) (test pxfg=978) 316 K/CU MM 150-450 MEAN PLATELET VOLUME (BEAKER) (test fdpq=657) 9.6 fL 9.4-12.3 NUCLEATED RED BLOOD CELLS (BEAKER) (test 0 /100 WBC 0-0 wbql=688) (CELLAVISION MANUAL DIFF)2018-01-08 08:14:00 Test Item Value Reference Range Comments NEUTROPHILS - REL (CELLAVISION)(BEAKER) (test 77 % sxuk=8932) LYMPHOCYTES - REL (CELLAVISION)(BEAKER) (test 5 % gkdw=9006) MONOCYTES - REL (CELLAVISION)(BEAKER) (test 10 % lcpv=4548) EOSINOPHILS - REL (CELLAVISION)(BEAKER) (test 1 % otvz=2078) METAMYELOCYTES - REL (CELLAVISION)(BEAKER) (test 1 % 0-0 zifr=6910) MYELOCYTES - REL (CELLAVISION)(BEAKER) (test 1 % 0-0 tllk=5131) BANDS - REL (CELLAVISION)(BEAKER) (test 5 % 0-10 qjfl=9695) NEUTROPHILS - ABS (CELLAVISION)(BEAKER) (test 16.32 K/ul 1.56-6.13 hwkk=3719) LYMPHOCYTES - ABS (CELLAVISION)(BEAKER) (test 1.06 K/ul 1.18-3.74 zaro=5080) MONOCYTES - ABS (CELLAVISION)(BEAKER) (test 2.12 K/uL 0.24-0.36 yggh=6127) EOSINOPHILS - ABS (CELLAVISION)(BEAKER) (test 0.21 K/uL 0.04-0.36 hkus=1615) METAMYELOCYTES - ABS (CELLAVISION)(BEAKER) (test 0.21 K/uL 0.00-0.00 kukh=0431) MYELOCYTES-ABS (CELLAVISION)(BEAKER) (test 0.21 K/uL 0.00-0.00 pnfg=7268) BANDS - ABS (CELLAVISION)(BEAKER) (test 1.06 K/uL 0.00-0.80 mkfc=3124) TOTAL COUNTED (BEAKER) (test hohd=4631) 100 RBC MORPHOLOGY (BEAKER) (test sarr=132) Normal PLT MORPHOLOGY (BEAKER) (test adzm=845) Normal SMUDGE CELLS (BEAKER) (test wsly=0573) Present PLATELET CONCENTRATION (CELLAVISION)(BEAKER) Adequate (test uhkd=9097) Received comment: User comments: Slide comments:BASIC METABOLIC [id number] 07:04:00 Test Item Value Reference Range Comments SODIUM (BEAKER) (test 135 meq/L 136-145 sqvz=837) POTASSIUM (BEAKER) (test 4.6 meq/L 3.5-5.1 vpvx=090) CHLORIDE (BEAKER) (test 102 meq/L 98-107 puzr=514) CO2 (BEAKER) (test 25 meq/L 22-29 qxjh=075) BLOOD UREA NITROGEN 15 mg/dL 7-21 (BEAKER) (test rjth=607) CREATININE (BEAKER) (test 1.52 mg/dL 0.57-1.25 tdqi=432) GLUCOSE RANDOM (BEAKER) 135 mg/dL 70-105 (test leqt=191) CALCIUM (BEAKER) (test 8.7 mg/dL 8.4-10.2 iptk=799) EGFR (BEAKER) (test 37 mL/min/1.73 sq m ESTIMATED GFR IS NOT nhes=2859) ACCURATE CREATININE CLEARANCE IN PREDICTING GLOMERULAR FILTRATION RATE. ESTIMATED GFR IS NOT APPLICABLE FOR DIALYSIS PATIENTS. LACTATE DEHYDROGENASE (LDH)2018-01-08 05:50:00 Test Item Value Reference Range Comments LACTATE DEHYDROGENASE (BEAKER) (test squp=739) 484 U/L 125-220 [id number] 05:04:00 Test Item Value Reference Range Comments D-DIMER QUANTITATIVE (BEAKER) (test ameg=033) 6.72 MG/L FEU <0.50 Intended Use: The [...] is within 95-100% range.LACTIC ACID, ARTERIAL, WHOLE [id number] 05:00:00 Test Item Value Reference Range Comments LACTATE BLOOD ARTERIAL (2) (BEAKER) (test 0.7 mmol/L 0.5-2.2 levv=3778) Effective 11/12/2015: Units/Reference Range ChangeNew: 0.5-2.2 mmol/L Previous: 5 -20 mg/dLBLOOD GAS, [id number] 04:48:00 Test Item Value Reference Range Comments PH ARTERIAL (BEAKER) (test jbvp=951) 7.42 7.35-7.45 PCO2 ARTERIAL (BEAKER) (test jqxp=683) 44 mmHg 35-45 PO2 ARTERIAL (BEAKER) (test lgub=323) 175 mmHg 80-90 O2 SATURATION ARTERIAL (BEAKER) (test cuzv=361) 99.2 % 96.0-97.0 HCO3 ARTERIAL (BEAKER) (test gjze=594) 28 mmol/L 21-29 BASE EXCESS ARTERIAL (BEAKER) (test nsow=246) 2.7 mmol/L -2.0-3.0 PATIENT TEMPERATURE (BEAKER) (test tanl=6951) 37.0 C FIO2 (BEAKER) (test gtik=2462) 40.0 % RAD, CHEST, 1 VIEW, NON [id number] 04:38:00Reason for exam:-> IntubatedShould this be performed [...] MDReport Verified Date/Time: 01/08/2018 04:38:07 Reading Location: [address] Reading Room 04 :38 AMBASIC METABOLIC [id number] 01:07:00 Test Item Value Reference Range Comments SODIUM (BEAKER) (test 135 meq/L 136-145 utdf=212) POTASSIUM (BEAKER) (test 5.0 meq/L 3.5-5.1 adau=006) CHLORIDE (BEAKER) (test 103 meq/L 98-107 rskc=266) CO2 (BEAKER) (test 26 meq/L 22-29 uvsr=684) BLOOD UREA NITROGEN 20 mg/dL 7-21 (BEAKER) (test gtzs=933) CREATININE (BEAKER) (test 1.91 mg/dL 0.57-1.25 eizk=526) GLUCOSE RANDOM (BEAKER) 123 mg/dL 70-105 (test ovtf=864) CALCIUM (BEAKER) (test 8.5 mg/dL 8.4-10.2 dlqm=734) EGFR (BEAKER) (test 28 mL/min/1.73 sq m ESTIMATED GFR IS NOT niso=6398) ACCURATE CREATININE CLEARANCE IN PREDICTING GLOMERULAR FILTRATION RATE. ESTIMATED GFR IS NOT APPLICABLE FOR DIALYSIS PATIENTS. [id number] 00:37:00 Test Item Value Reference Range Comments PHOSPHORUS (BEAKER) (test jzqx=908) 3.8 mg/dL 2.3-4.7 [id number] 00:37:00 Test Item Value Reference Range Comments MAGNESIUM (BEAKER) (test rets=848) 2.0 mg/dL 1.6-2.6 BASIC METABOLIC [id number] 19:44:00 Test Item Value Reference Range Comments SODIUM (BEAKER) (test 136 meq/L 136-145 jiuy=038) POTASSIUM (BEAKER) (test 5.1 meq/L 3.5-5.1 ncpn=377) CHLORIDE (BEAKER) (test 103 meq/L 98-107 yacn=379) CO2 (BEAKER) (test 23 meq/L 22-29 fjam=062) BLOOD UREA NITROGEN 21 mg/dL 7-21 (BEAKER) (test usbw=930) CREATININE (BEAKER) (test 2.15 mg/dL 0.57-1.25 npiu=543) GLUCOSE RANDOM (BEAKER) 130 mg/dL 70-105 (test rcdv=130) CALCIUM (BEAKER) (test 8.4 mg/dL 8.4-10.2 rarv=509) EGFR (BEAKER) (test 25 mL/min/1.73 sq m ESTIMATED GFR IS NOT akdp=4342) ACCURATE CREATININE CLEARANCE IN PREDICTING GLOMERULAR FILTRATION RATE. ESTIMATED GFR IS NOT APPLICABLE FOR DIALYSIS PATIENTS. [id number] 19:40:00 Test Item Value Reference Range Comments PHOSPHORUS (BEAKER) (test uvhn=486) 4.4 mg/dL 2.3-4.7 [id number] 19:40:00 Test Item Value Reference Range Comments MAGNESIUM (BEAKER) (test mqoi=225) 2.1 mg/dL 1.6-2.6 [id number] 17:07:00 Test Item Value Reference Range Comments PARTIAL THROMBOPLASTIN TIME (BEAKER) (test 78.1 seconds 22.5-36.0 xzhi=979) [id number] 15:19:00 Test Item Value Reference Range Comments POTASSIUM (BEAKER) (test lugm=456) 5.1 meq/L 3.5-5.1 [id number] 12:02:00 Test Item Value Reference Range Comments PARTIAL THROMBOPLASTIN TIME (BEAKER) (test 73.9 seconds 22.5-36.0 bozp=908) [id number] 11:44:00 Test Item Value Reference Range Comments POTASSIUM (BEAKER) (test okgl=254) 5.1 meq/L 3.5-5.1 Check Serum Potassium level 30 minutes after IV potassium replacement completed.CBC W/PLT COUNT & AUTO [id number] 10:29:00 Test Item Value Reference Range Comments WHITE BLOOD CELL COUNT (BEAKER) (test qnjq=843) 16.5 K/ L 3.5-10.5 RED BLOOD CELL COUNT (BEAKER) (test essu=627) 2.13 M/ L 3.93-5.22 HEMOGLOBIN (BEAKER) (test bftr=928) 6.3 GM/DL 11.2-15.7 HEMATOCRIT (BEAKER) (test ykma=585) 20.2 % 34.1-44.9 MEAN CORPUSCULAR VOLUME (BEAKER) (test mqlp=903) 94.8 fL 79.4-94.8 MEAN CORPUSCULAR HEMOGLOBIN (BEAKER) (test 29.6 pg 25.6-32.2 tswg=233) MEAN CORPUSCULAR HEMOGLOBIN CONC (BEAKER) (test 31.2 GM/DL 32.2-35.5 zdyr=184) RED CELL DISTRIBUTION WIDTH (BEAKER) (test 16.8 % 11.7-14.4 udst=133) PLATELET COUNT (BEAKER) (test gkup=841) 270 K/CU MM 150-450 MEAN PLATELET VOLUME (BEAKER) (test ljcn=774) 9.8 fL 9.4-12.3 NUCLEATED RED BLOOD CELLS (BEAKER) (test 0 /100 WBC 0-0 ihkb=971) (CELLAVISION MANUAL DIFF)2018-01-07 10:29:00 Test Item Value Reference Range Comments NEUTROPHILS - REL (CELLAVISION)(BEAKER) (test 74 % qdpv=8984) LYMPHOCYTES - REL (CELLAVISION)(BEAKER) (test 7 % zqeg=6571) MONOCYTES - REL (CELLAVISION)(BEAKER) (test 12 % gnme=8052) MYELOCYTES - REL (CELLAVISION)(BEAKER) (test 3 % 0-0 jief=7706) BANDS - REL (CELLAVISION)(BEAKER) (test 4 % 0-10 qbmr=9791) NEUTROPHILS - ABS (CELLAVISION)(BEAKER) (test 12.21 K/ul 1.56-6.13 ywim=6726) LYMPHOCYTES - ABS (CELLAVISION)(BEAKER) (test 1.16 K/ul 1.18-3.74 srtc=8408) MONOCYTES - ABS (CELLAVISION)(BEAKER) (test 1.98 K/uL 0.24-0.36 lard=2984) MYELOCYTES-ABS (CELLAVISION)(BEAKER) (test 0.50 K/uL 0.00-0.00 dtjv=6184) BANDS - ABS (CELLAVISION)(BEAKER) (test 0.66 K/uL 0.00-0.80 mgfy=6898) TOTAL COUNTED (BEAKER) (test nfoh=6497) 100 WBC MORPHOLOGY (BEAKER) (test mshq=673) Normal GIANT PLATELETS (BEAKER) (test fxlx=687) Present POLYCHROMATOPHILLIC RBCS(BEAKER) (test cjiy=588) 1+ few HYPOCHROMIA (BEAKER) (test lpyx=296) 2+ moderate ANISOCYTOSIS (BEAKER) (test oqzt=777) 1+ few MACROCYTES (BEAKER) (test hjpp=925) 1+ few POIKILOCYTES (BEAKER) (test wqss=381) 1+ few ARTIFACT (CELLAVISION)(BEAKER) (test nqzj=9001) Present PLATELET CONCENTRATION (CELLAVISION)(BEAKER) Adequate (test dfcc=3280) Received comment: User comments: Slide comments:[id number] 09:36:00 Test Item Value Reference Range Comments POTASSIUM (BEAKER) (test upbk=878) 5.0 meq/L 3.5-5.1 [id number] 09:36:00 Test Item Value Reference Range Comments MAGNESIUM (BEAKER) (test ukcp=628) 1.9 mg/dL 1.6-2.6 [id number] 09:36:00 Test Item Value Reference Range Comments PHOSPHORUS (BEAKER) (test flke=421) 3.3 mg/dL 2.3-4.7 [id number] 09:36:00 Test Item Value Reference Range Comments SODIUM (BEAKER) (test vnbo=788) 134 meq/L 136-145 CALCIUM, [id number] 09:17:00 Test Item Value Reference Range Comments CALCIUM IONIZED (BEAKER) (test sbct=111) 1.14 mmol/L 1.12-1.27 PH, BLOOD (BEAKER) (test drvw=6768) 7.42 [id number] 06:18:00 Test Item Value Reference Range Comments POTASSIUM (BEAKER) (test mtgx=179) 4.7 meq/L 3.5-5.1 BASIC METABOLIC [id number] 06:18:00 Test Item Value Reference Range Comments SODIUM (BEAKER) (test 133 meq/L 136-145 amed=007) POTASSIUM (BEAKER) (test 4.7 meq/L 3.5-5.1 wtgg=184) CHLORIDE (BEAKER) (test 101 meq/L 98-107 luom=118) CO2 (BEAKER) (test 25 meq/L 22-29 malh=689) BLOOD UREA NITROGEN 15 mg/dL 7-21 (BEAKER) (test ufae=425) CREATININE (BEAKER) (test 1.53 mg/dL 0.57-1.25 fxmi=762) GLUCOSE RANDOM (BEAKER) 101 mg/dL 70-105 (test ebbr=732) CALCIUM (BEAKER) (test 8.8 mg/dL 8.4-10.2 yzbj=793) EGFR (BEAKER) (test 37 mL/min/1.73 sq m ESTIMATED GFR IS NOT kian=3327) ACCURATE CREATININE CLEARANCE IN PREDICTING GLOMERULAR FILTRATION RATE. ESTIMATED GFR IS NOT APPLICABLE FOR DIALYSIS PATIENTS. LACTATE DEHYDROGENASE (LDH)2018-01-07 06:18:00 Test Item Value Reference Range Comments LACTATE DEHYDROGENASE (BEAKER) (test axvd=647) 519 U/L 125-220 [id number] 05:41:00 Test Item Value Reference Range Comments D-DIMER QUANTITATIVE (BEAKER) (test zlkp=351) 5.74 MG/L FEU <0.50 Intended Use: The [...] within 95-100% range.Prior to initiating heparinBLOOD GAS, [id number] 05:36:00 Test Item Value Reference Range Comments PH ARTERIAL (BEAKER) (test kiyc=387) 7.39 7.35-7.45 PCO2 ARTERIAL (BEAKER) (test vjva=306) 50 mmHg 35-45 PO2 ARTERIAL (BEAKER) (test dfhc=380) 120 mmHg 80-90 O2 SATURATION ARTERIAL (BEAKER) (test jqow=091) 98.2 % 96.0-97.0 HCO3 ARTERIAL (BEAKER) (test kvrv=260) 29 mmol/L 21-29 BASE EXCESS ARTERIAL (BEAKER) (test uhmi=309) 3.7 mmol/L -2.0-3.0 PATIENT TEMPERATURE (BEAKER) (test ccsr=9451) 37.5 C FIO2 (BEAKER) (test wtro=1956) 40.0 % LACTIC ACID, ARTERIAL, WHOLE [id number] 05:21:00 Test Item Value Reference Range Comments LACTATE BLOOD ARTERIAL (2) (BEAKER) (test 0.6 mmol/L 0.5-2.2 href=8512) Effective 11/12/2015: Units/Reference Range ChangeNew: 0.5-2.2 mmol/L Previous: 5 -20 mg/[id number] 05:19:00 Test Item Value Reference Range Comments PARTIAL THROMBOPLASTIN TIME (BEAKER) (test 62.2 seconds 22.5-36.0 xeni=988) Prior to initiating heparinRAD, CHEST, 1 VIEW, NON [id number] 05:12: 00Reason for exam:->IntubatedShould this be performed at the bedside?-> YesFINAL REPORT Comparison exam: 01/06/2018 Bilateral pulmonary opacities stablewhen compared to 01/06/2018. Stable cardiomediastinal contours. Appropriate position of the support hardware. Signed: Cash Cole MDReport Verified Date/Time: 01/07/2018 05:12:04 Reading Location: [address] Ortho Consult Reading Room Electronically signed by: CASH COLE M.D. on01/07/2018 05:12 AMPOCT-GLUCOSE [id number] 00:38:00 Test Item Value Reference Range Comments POC-GLUCOSE METER (BEAKER) 122 mg/dL 70-[address] [facility] [address] [facility] (test ciqt=6146) [facility] [address] [id number] 00:34:00 Test Item Value Reference Range Comments POTASSIUM (BEAKER) (test chvd=431) 4.6 meq/L 3.5-5.1 CALCIUM, [id number] 00:29:00 Test Item Value Reference Range Comments CALCIUM IONIZED (BEAKER) (test xetm=015) 1.15 mmol/L 1.12-1.27 PH, BLOOD (BEAKER) (test ycoy=6369) 7.38 [id number] 20:39:00 Test Item Value Reference Range Comments POTASSIUM (BEAKER) (test rvba=325) 4.7 meq/L 3.5-5.1 [id number] 20:39:00 Test Item Value Reference Range Comments MAGNESIUM (BEAKER) (test izbp=559) 1.9 mg/dL 1.6-2.6 [id number] 20:39:00 Test Item Value Reference Range Comments PHOSPHORUS (BEAKER) (test rejh=531) 4.1 mg/dL 2.3-4.7 [id number] 20:39:00 Test Item Value Reference Range Comments SODIUM (BEAKER) (test acbo=991) 135 meq/L 136-145 RAD, ABDOMEN/KUB, 1 VIEW [id number] 20:30:00Reason for exam:->feeding tube placementFINAL REPORT CLINICAL HISTORY: feeding tube placement TECHNIQUE: Supine abdomen IMPRESSION: The tip of the feeding tube is in the distal stomach. The partially visualized bowel gas pattern is nonspecific. Signed: Evan Lyon MDReport Verified Date/Time: 01/06/2018 20: 30:47 Reading Location: [facility] B1 [id number] Consult Reading Room Electronically signed by: EVAN LYON M.D.on 01/06/2018 08:30 PMBLOOD GAS, [id number] 17:35:00 Test Item Value Reference Range Comments PH ARTERIAL (BEAKER) (test hags=809) 7.41 7.35-7.45 PCO2 ARTERIAL (BEAKER) (test gkbe=517) 44 mmHg 35-45 PO2 ARTERIAL (BEAKER) (test yoig=974) 82 mmHg 80-90 O2 SATURATION ARTERIAL (BEAKER) (test jtis=595) 96.1 % 96.0-97.0 HCO3 ARTERIAL (BEAKER) (test mwsf=299) 27 mmol/L 21-29 BASE EXCESS ARTERIAL (BEAKER) (test ckny=265) 2.1 mmol/L -2.0-3.0 PATIENT TEMPERATURE (BEAKER) (test upti=0692) 37.0 C FIO2 (BEAKER) (test smoe=1556) 40.0 % [id number] 16:53:00 Test Item Value Reference Range Comments POTASSIUM (BEAKER) (test uove=606) 4.9 meq/L 3.5-5.1 CALCIUM, [id number] 16:38:00 Test Item Value Reference Range Comments CALCIUM IONIZED (BEAKER) (test qmfk=741) 1.18 mmol/L 1.12-1.27 PH, BLOOD (BEAKER) (test qadc=2429) 7.43 [id number] 13:52:00 Test Item Value Reference Range Comments POTASSIUM (BEAKER) (test fqid=876) 4.7 meq/L 3.5-5.1 CBC W/PLT COUNT & AUTO [id number] 11:53:00 Test Item Value Reference Range Comments WHITE BLOOD CELL COUNT (BEAKER) (test zxcm=572) 22.7 K/ L 3.5-10.5 RED BLOOD CELL COUNT (BEAKER) (test svbr=867) 2.39 M/ L 3.93-5.22 HEMOGLOBIN (BEAKER) (test nzfu=312) 7.0 GM/DL 11.2-15.7 HEMATOCRIT (BEAKER) (test kvaz=992) 22.7 % 34.1-44.9 MEAN CORPUSCULAR VOLUME (BEAKER) (test ziaw=104) 95.0 fL 79.4-94.8 MEAN CORPUSCULAR HEMOGLOBIN (BEAKER) (test 29.3 pg 25.6-32.2 pvho=909) MEAN CORPUSCULAR HEMOGLOBIN CONC (BEAKER) (test 30.8 GM/DL 32.2-35.5 abgy=410) RED CELL DISTRIBUTION WIDTH (BEAKER) (test 16.7 % 11.7-14.4 yvwa=880) PLATELET COUNT (BEAKER) (test qbec=787) 296 K/CU MM 150-450 MEAN PLATELET VOLUME (BEAKER) (test uveh=921) 9.7 fL 9.4-12.3 NUCLEATED RED BLOOD CELLS (BEAKER) (test 0 /100 WBC 0-0 xplg=701) (CELLAVISION MANUAL DIFF)2018-01-06 11:53:00 Test Item Value Reference Range Comments NEUTROPHILS - REL (CELLAVISION)(BEAKER) (test 67 % gwkl=0885) LYMPHOCYTES - REL (CELLAVISION)(BEAKER) (test 5 % vypv=9013) MONOCYTES - REL (CELLAVISION)(BEAKER) (test 10 % ntlc=0509) METAMYELOCYTES - REL (CELLAVISION)(BEAKER) (test 3 % 0-0 lzph=4887) MYELOCYTES - REL (CELLAVISION)(BEAKER) (test 5 % 0-0 uzld=5310) PROMYELOCYTES - REL (CELLAVSION)(BEAKER) (test 3 % 0-0 zsed=6034) BANDS - REL (CELLAVISION)(BEAKER) (test 6 % 0-10 mchx=1638) NEUTROPHILS - ABS (CELLAVISION)(BEAKER) (test 15.21 K/ul 1.56-6.13 ethi=2729) LYMPHOCYTES - ABS (CELLAVISION)(BEAKER) (test 1.14 K/ul 1.18-3.74 qbkc=5201) MONOCYTES - ABS (CELLAVISION)(BEAKER) (test 2.27 K/uL 0.24-0.36 ymug=4450) METAMYELOCYTES - ABS (CELLAVISION)(BEAKER) (test 0.68 K/uL 0.00-0.00 manj=1880) MYELOCYTES-ABS (CELLAVISION)(BEAKER) (test 1.14 K/uL 0.00-0.00 rgdt=5366) PROMYELOCYTES - ABS (CELLAVISION)(BEAKER) (test 0.68 K/uL 0.00-0.00 pfml=7943) BANDS - ABS (CELLAVISION)(BEAKER) (test 1.36 K/uL 0.00-0.80 ljrx=7128) TOTAL COUNTED (BEAKER) (test jrvq=7799) 100 PLT MORPHOLOGY (BEAKER) (test humm=840) Normal SMUDGE CELLS (BEAKER) (test zhzn=7520) Present TOXIC GRANULATION (BEAKER) (test tmqx=176) Present POLYCHROMATOPHILLIC RBCS(BEAKER) (test sgvw=571) 1+ few ANISOCYTOSIS (BEAKER) (test btkb=062) 1+ few ARTIFACT (CELLAVISION)(BEAKER) (test cdkq=3565) Present PLATELET CONCENTRATION (CELLAVISION)(BEAKER) Adequate (test lbzn=9557) Received comment: User comments: Slide comments:[id number] 09:33:00 Test Item Value Reference Range Comments POTASSIUM (BEAKER) (test cjzd=428) 4.5 meq/L 3.5-5.1 [id number] 09:33:00 Test Item Value Reference Range Comments MAGNESIUM (BEAKER) (test aovz=002) 2.0 mg/dL 1.6-2.6 [id number] 09:33:00 Test Item Value Reference Range Comments PHOSPHORUS (BEAKER) (test mqkt=274) 3.0 mg/dL 2.3-4.7 [id number] 09:33:00 Test Item Value Reference Range Comments SODIUM (BEAKER) (test pbym=756) 134 meq/L 136-145 SPUTUM CULTURE + GRAM [id number] 09:21:00 Test Item Value Reference Range Comments CULTURE (BEAKER) (test ACINETOBACTER 3+ Acinetobacter qpjj=5417) BAUMANNII COMPLEX baumannii complex Amikacin (test code=1) [...] GRAM STAIN RESULT 4+ WBCs (BEAKER) (test enkh=3747) GRAM STAIN RESULT 5-10 epithelial cells (BEAKER) (test saxy=447787) GRAM STAIN RESULT <1+ gram negative (BEAKER) (test rods doxw=938057) GRAM STAIN RESULT <1+ gram positive (BEAKER) (test rods tdpx=732859) GRAM STAIN RESULT <1+ gram positive (BEAKER) (test cocci in pairs kdur=075173) GRAM STAIN RESULT <1+ yeast (BEAKER) (test wetf=404591) 2+ Normal respiratory сергей [id number] 09:12:00 Test Item Value Reference Range Comments PARTIAL THROMBOPLASTIN TIME (BEAKER) (test 76.0 seconds 22.5-36.0 oevy=030) CALCIUM, [id number] 09:10:00 Test Item Value Reference Range Comments CALCIUM IONIZED (BEAKER) (test rxzs=395) 1.19 mmol/L 1.12-1.27 PH, BLOOD (BEAKER) (test vqhu=6655) 7.39 BASIC METABOLIC [id number] 08:52:00 Test Item Value Reference Range Comments SODIUM (BEAKER) (test 134 meq/L 136-145 lwvv=851) POTASSIUM (BEAKER) (test 4.9 meq/L 3.5-5.1 ciwx=809) CHLORIDE (BEAKER) (test 102 meq/L 98-107 gqgi=737) CO2 (BEAKER) (test 24 meq/L 22-29 zyol=674) BLOOD UREA NITROGEN 17 mg/dL 7-21 (BEAKER) (test hqks=367) CREATININE (BEAKER) (test 1.55 mg/dL 0.57-1.25 dwbe=212) GLUCOSE RANDOM (BEAKER) 132 mg/dL 70-105 (test lxtp=158) CALCIUM (BEAKER) (test 9.1 mg/dL 8.4-10.2 jsul=405) EGFR (BEAKER) (test 36 mL/min/1.73 sq m ESTIMATED GFR IS NOT llvs=5072) ACCURATE CREATININE CLEARANCE IN PREDICTING GLOMERULAR FILTRATION RATE. ESTIMATED GFR IS NOT APPLICABLE FOR DIALYSIS PATIENTS. LACTATE DEHYDROGENASE (LDH)2018-01-06 06:10:00 Test Item Value Reference Range Comments LACTATE DEHYDROGENASE (BEAKER) 574 U/L 125-220 Specimen slightly hemolyzed (test ojmu=654) [id number] 06:09:00 Test Item Value Reference Range Comments POTASSIUM (BEAKER) (test 4.5 meq/L 3.5-5.1 Specimen slightly hemolyzed hfou=284) [id number] 05:41:00 Test Item Value Reference Range Comments D-DIMER QUANTITATIVE (BEAKER) (test khvq=379) 4.02 MG/L FEU <0.50 Intended Use: The [...] is within 95-100% range.LACTIC ACID, ARTERIAL, WHOLE [id number] 05:39:00 Test Item Value Reference Range Comments LACTATE BLOOD ARTERIAL (2) (BEAKER) (test 0.6 mmol/L 0.5-2.2 myug=4085) Effective 11/12/2015: Units/Reference Range ChangeNew: 0.5-2.2 mmol/L Previous: 5 -20 mg/dLBLOOD GAS, [id number] 05:32:00 Test Item Value Reference Range Comments PH ARTERIAL (BEAKER) (test tbyj=469) 7.37 7.35-7.45 PCO2 ARTERIAL (BEAKER) (test qupx=719) 51 mmHg 35-45 PO2 ARTERIAL (BEAKER) (test keyv=751) 113 mmHg 80-90 O2 SATURATION ARTERIAL (BEAKER) (test tehj=286) 97.9 % 96.0-97.0 HCO3 ARTERIAL (BEAKER) (test dlqs=831) 29 mmol/L 21-29 BASE EXCESS ARTERIAL (BEAKER) (test iupx=485) 3.3 mmol/L -2.0-3.0 PATIENT TEMPERATURE (BEAKER) (test jtpd=9058) 37.5 C FIO2 (BEAKER) (test cjoa=1674) 40.0 % [id number] 05:32:00 Test Item Value Reference Range Comments PARTIAL THROMBOPLASTIN TIME (BEAKER) (test 70.0 seconds 22.5-36.0 vnlx=190) RAD, CHEST, 1 VIEW, NON [id number] 04:40:00Reason for exam:-> IntubatedShould this be performed at the bedside?->YesFINAL REPORT Comparison exam: 01/05/2018 Pulmonary venous congestion, unchanged. Stable cardiomediastinal contours. Appropriate position of the support hardware. Signed: Cash Cole MDReport Verified Date/Time: 01/06 04:40:59 Reading Location: [facility] C013X Ortho Consult Reading Room PT/[id number] 01:50:00 Test Item Value Reference Range Comments PROTIME (BEAKER) (test iksm=391) 15.7 seconds 11.7-14.7 INR (BEAKER) (test adpm=516) 1.3 <=5.9 PARTIAL THROMBOPLASTIN TIME (BEAKER) (test 63.1 seconds 22.5-36.0 azar=556) RECOMMENDED COUMADIN/WARFARIN INR THERAPY RANGESSTANDARD DOSE: 2.0 - 3.0 Includes: PROPHYLAXIS forvenous thrombosis, systemic embolization; TREATMENT for venous thrombosis and/or pulmonary embolus.HIGH RISK: Target INR is 2.5-3.5 for patients with mechanical heart valves.[id number] 01:48:00 Test Item Value Reference Range Comments POTASSIUM (BEAKER) (test ylpy=976) 4.4 meq/L 3.5-5.1 CALCIUM, [id number] 01:28:00 Test Item Value Reference Range Comments CALCIUM IONIZED (BEAKER) (test pdld=288) 1.17 mmol/L 1.12-1.27 PH, BLOOD (BEAKER) (test cazz=6193) 7.41 [id number] 21:17:00 Test Item Value Reference Range Comments POTASSIUM (BEAKER) (test iotr=711) 4.6 meq/L 3.5-5.1 [id number] 21:17:00 Test Item Value Reference Range Comments MAGNESIUM (BEAKER) (test esvm=053) 1.9 mg/dL 1.6-2.6 [id number] 21:17:00 Test Item Value Reference Range Comments PHOSPHORUS (BEAKER) (test xhju=481) 3.2 mg/dL 2.3-4.7 [id number] 21:17:00 Test Item Value Reference Range Comments SODIUM (BEAKER) (test znef=568) 135 meq/L 136-145 [id number] 16:26:00 Test Item Value Reference Range Comments PARTIAL THROMBOPLASTIN TIME (BEAKER) (test 47.7 seconds 22.5-36.0 jmhe=022) [id number] 15:57:00 Test Item Value Reference Range Comments POTASSIUM (BEAKER) (test ydup=535) 4.8 meq/L 3.5-5.1 BLOOD GAS, [id number] 15:23:00 Test Item Value Reference Range Comments PH ARTERIAL (BEAKER) (test vsge=458) 7.39 7.35-7.45 PCO2 ARTERIAL (BEAKER) (test ifoc=557) 47 mmHg 35-45 PO2 ARTERIAL (BEAKER) (test vbqa=047) 72 mmHg 80-90 O2 SATURATION ARTERIAL (BEAKER) (test bgwd=724) 93.3 % 96.0-97.0 HCO3 ARTERIAL (BEAKER) (test kyir=104) 27 mmol/L 21-29 BASE EXCESS ARTERIAL (BEAKER) (test humr=077) 2.4 mmol/L -2.0-3.0 PATIENT TEMPERATURE (BEAKER) (test xxye=1351) 38.0 C FIO2 (BEAKER) (test wnph=1485) 40.0 % CALCIUM, [id number] 15:22:00 Test Item Value Reference Range Comments CALCIUM IONIZED (BEAKER) (test mvxs=309) 1.13 mmol/L 1.12-1.27 PH, BLOOD (BEAKER) (test fijp=0330) 7.41 CBC W/PLT COUNT & AUTO [id number] 14:07:00 Test Item Value Reference Range Comments WHITE BLOOD CELL COUNT (BEAKER) (test jxvi=846) 40.2 K/ L 3.5-10.5 RED BLOOD CELL COUNT (BEAKER) (test nfql=958) 2.69 M/ L 3.93-5.22 HEMOGLOBIN (BEAKER) (test dupl=441) 8.0 GM/DL 11.2-15.7 HEMATOCRIT (BEAKER) (test mkmk=293) 25.6 % 34.1-44.9 MEAN CORPUSCULAR VOLUME (BEAKER) (test uvib=538) 95.2 fL 79.4-94.8 MEAN CORPUSCULAR HEMOGLOBIN (BEAKER) (test 29.7 pg 25.6-32.2 zefd=498) MEAN CORPUSCULAR HEMOGLOBIN CONC (BEAKER) (test 31.3 GM/DL 32.2-35.5 skba=013) RED CELL DISTRIBUTION WIDTH (BEAKER) (test 16.8 % 11.7-14.4 gssi=557) PLATELET COUNT (BEAKER) (test hmvi=621) 325 K/CU MM 150-450 MEAN PLATELET VOLUME (BEAKER) (test kchk=460) 9.9 fL 9.4-12.3 NUCLEATED RED BLOOD CELLS (BEAKER) (test 0 /100 WBC 0-0 ifji=420) (CELLAVISION MANUAL DIFF)2018-01-05 14:07:00 Test Item Value Reference Range Comments NEUTROPHILS - REL (CELLAVISION)(BEAKER) (test 62 % smdt=7882) LYMPHOCYTES - REL (CELLAVISION)(BEAKER) (test 9 % imzm=2394) MONOCYTES - REL (CELLAVISION)(BEAKER) (test 5 % tife=1708) EOSINOPHILS - REL (CELLAVISION)(BEAKER) (test 1 % aaix=5748) METAMYELOCYTES - REL (CELLAVISION)(BEAKER) (test 6 % 0-0 hbne=7319) MYELOCYTES - REL (CELLAVISION)(BEAKER) (test 4 % 0-0 hyzy=4317) PROMYELOCYTES - REL (CELLAVSION)(BEAKER) (test 2 % 0-0 hmxe=3315) BANDS - REL (CELLAVISION)(BEAKER) (test 10 % 0-10 vlup=7191) NEUTROPHILS - ABS (CELLAVISION)(BEAKER) (test 24.92 K/ul 1.56-6.13 fakx=4788) LYMPHOCYTES - ABS (CELLAVISION)(BEAKER) (test 3.62 K/ul 1.18-3.74 qwzl=2575) MONOCYTES - ABS (CELLAVISION)(BEAKER) (test 2.01 K/uL 0.24-0.36 wpto=2114) EOSINOPHILS - ABS (CELLAVISION)(BEAKER) (test 0.40 K/uL 0.04-0.36 mmam=3668) METAMYELOCYTES - ABS (CELLAVISION)(BEAKER) (test 2.41 K/uL 0.00-0.00 jrqn=4895) MYELOCYTES-ABS (CELLAVISION)(BEAKER) (test 1.61 K/uL 0.00-0.00 ownq=6187) PROMYELOCYTES - ABS (CELLAVISION)(BEAKER) (test 0.80 K/uL 0.00-0.00 mnvd=2242) BANDS - ABS (CELLAVISION)(BEAKER) (test 4.02 K/uL 0.00-0.80 jxbs=2650) TOTAL COUNTED (BEAKER) (test sefq=3206) 100 SMUDGE CELLS (BEAKER) (test vrfx=4287) Present GIANT PLATELETS (BEAKER) (test entf=805) Present ANISOCYTOSIS (BEAKER) (test yljr=916) 1+ few BASOPHILIC STIPPLING (BEAKER) (test pkqi=690) Present ARTIFACT (CELLAVISION)(BEAKER) (test mozp=7280) Present PLATELET CONCENTRATION (CELLAVISION)(BEAKER) Adequate (test kedb=6198) Received comment: User comments: Slide comments:[id number] 08:55:00 Test Item Value Reference Range Comments PARTIAL THROMBOPLASTIN TIME (BEAKER) (test 40.8 seconds 22.5-36.0 grab=786) [id number] 08:46:00 Test Item Value Reference Range Comments POTASSIUM (BEAKER) (test pohp=344) 4.8 meq/L 3.5-5.1 [id number] 08:46:00 Test Item Value Reference Range Comments MAGNESIUM (BEAKER) (test ogyi=810) 2.3 mg/dL 1.6-2.6 [id number] 08:46:00 Test Item Value Reference Range Comments PHOSPHORUS (BEAKER) (test jjib=015) 3.6 mg/dL 2.3-4.7 [id number] 08:46:00 Test Item Value Reference Range Comments SODIUM (BEAKER) (test mlzx=996) 138 meq/L 136-145 CALCIUM, [id number] 08:37:00 Test Item Value Reference Range Comments CALCIUM IONIZED (BEAKER) (test iaqj=986) 1.11 mmol/L 1.12-1.27 PH, BLOOD (BEAKER) (test lnia=0426) 7.40 [id number] 05:38:00 Test Item Value Reference Range Comments POTASSIUM (BEAKER) (test vdhn=352) 4.6 meq/L 3.5-5.1 BASIC METABOLIC [id number] 05:38:00 Test Item Value Reference Range Comments SODIUM (BEAKER) (test 136 meq/L 136-145 nbms=398) POTASSIUM (BEAKER) (test 4.6 meq/L 3.5-5.1 lmji=444) CHLORIDE (BEAKER) (test 102 meq/L 98-107 igav=708) CO2 (BEAKER) (test 24 meq/L 22-29 zioq=418) BLOOD UREA NITROGEN 24 mg/dL 7-21 (BEAKER) (test ykwg=744) CREATININE (BEAKER) (test 1.80 mg/dL 0.57-1.25 lrlm=307) GLUCOSE RANDOM (BEAKER) 120 mg/dL 70-105 (test vsol=899) CALCIUM (BEAKER) (test 8.6 mg/dL 8.4-10.2 bbnp=120) EGFR (BEAKER) (test 30 mL/min/1.73 sq m ESTIMATED GFR IS NOT hwlk=3005) ACCURATE CREATININE CLEARANCE IN PREDICTING GLOMERULAR FILTRATION RATE. ESTIMATED GFR IS NOT APPLICABLE FOR DIALYSIS PATIENTS. LACTATE DEHYDROGENASE (LDH)2018-01-05 05:38:00 Test Item Value Reference Range Comments LACTATE DEHYDROGENASE (BEAKER) (test rrba=757) 549 U/L 125-220 LACTIC ACID, ARTERIAL, WHOLE [id number] 05:19:00 Test Item Value Reference Range Comments LACTATE BLOOD ARTERIAL (2) (BEAKER) (test 0.6 mmol/L 0.5-2.2 asje=4835) Effective 11/12/2015: Units/Reference Range ChangeNew: 0.5-2.2 mmol/L Previous: 5 -20 mg/[id number] 05:18:00 Test Item Value Reference Range Comments D-DIMER QUANTITATIVE (BEAKER) (test ljxp=645) 4.02 MG/L FEU <0.50 Intended Use: The D-Dimer Assay can be used to aid in the diagnosis of Deep Vein Thrombosis (DVT) and Pulmonary Embolism Disease (PED).In patients with low pre-test probability, various studies concerning STA Liatest D-dimer test have reported that with a cutoff value of 0.50 MG/L FEU, the Negative Predictive Value (NPV) regarding the exclusion of thrombosis is within 95-100% range.[id number] 05:09:00 Test Item Value Reference Range Comments PARTIAL THROMBOPLASTIN TIME (BEAKER) (test 49.5 seconds 22.5-36.0 kixu=969) CALCIUM, [id number] 05:03:00 Test Item Value Reference Range Comments CALCIUM IONIZED (BEAKER) (test paqt=933) 1.15 mmol/L 1.12-1.27 PH, BLOOD (BEAKER) (test hhdt=1283) 7.39 BLOOD GAS, [id number] 05:02:00 Test Item Value Reference Range Comments PH ARTERIAL (BEAKER) (test vddd=035) 7.38 7.35-7.45 PCO2 ARTERIAL (BEAKER) (test vzct=834) 45 mmHg 35-45 PO2 ARTERIAL (BEAKER) (test dqns=649) 86 mmHg 80-90 O2 SATURATION ARTERIAL (BEAKER) (test ctvp=256) 96.3 % 96.0-97.0 HCO3 ARTERIAL (BEAKER) (test obon=960) 26 mmol/L 21-29 BASE EXCESS ARTERIAL (BEAKER) (test rszp=949) 0.4 mmol/L -2.0-3.0 PATIENT TEMPERATURE (BEAKER) (test bism=0626) 37.0 C FIO2 (BEAKER) (test lzfi=2295) 50.0 % RAD, CHEST, 1 VIEW, NON [id number] 04:47:00Reason for exam:-> IntubatedShould this be performed at the bedside?->YesFINAL REPORT RAD, CHEST, 1 VIEW, NON DEPT INDICATION: Intubated COMPARISON: Prior day's exam FINDINGS: Portable frontal view of the chest. IMPRESSION: Support Lines: Stable. Lungs and pleura: Interstitial edema unchanged from prior. No new focal consolidation. No pneumothorax.Heart and mediastinum: Stable contours. Additional findings: None. Signed: JR Aguilar Robert MDReport Verified Date/Time: 01/05/2018 04:47:39 Reading Location: [address] Reading Room [id number] 00:57:00 Test Item Value Reference Range Comments POTASSIUM (BEAKER) (test eexe=896) 4.5 meq/L 3.5-5.1 CALCIUM, [id number] 00:53:00 Test Item Value Reference Range Comments CALCIUM IONIZED (BEAKER) (test mvgp=379) 1.14 mmol/L 1.12-1.27 PH, BLOOD (BEAKER) (test boea=7722) 7.38 CT, CHEST, WITHOUT [id number] 23:07:00FINAL REPORT CT scan of the chest, [...] MDReport Verified Date/Time: 01/04/2018 23:07:55 Reading Location: [address] Consult Reading Room CT, [id number] 23:07:00FINAL REPORT CT scan of the chest, [...] MDReport Verified Date/Time: 01/04/2018 23:07:55 Reading Location: [address] Consult Reading Room [id number] 21:01:00 Test Item Value Reference Range Comments POTASSIUM (BEAKER) (test lpoj=747) 4.6 meq/L 3.5-5.1 [id number] 21:01:00 Test Item Value Reference Range Comments MAGNESIUM (BEAKER) (test epme=776) 1.8 mg/dL 1.6-2.6 [id number] 21:01:00 Test Item Value Reference Range Comments PHOSPHORUS (BEAKER) (test czgt=873) 3.4 mg/dL 2.3-4.7 [id number] 21:01:00 Test Item Value Reference Range Comments SODIUM (BEAKER) (test nxdd=874) 136 meq/L 136-145 PH, [id number] 20:53:00 Test Item Value Reference Range Comments PH ARTERIAL (BEAKER) (test yjpq=103) 7.35 7.35-7.45 POCT-GLUCOSE [id number] 18:51:00 Test Item Value Reference Range Comments POC-GLUCOSE METER (BEAKER) 132 mg/dL 70-[address] [facility] [address] [place] [address] (test lyao=3083) [facility] [address] HEPATOBILIARY [id number] 16:08:00FINAL REPORT PROCEDURE: HEPATOBILIARY SCAN CPT CODE: 92126 INDICATION: Fever , abnormal gallbladder ultrasound PROTOCOL: [...] evidence of acute cholecystitis. Signed: Yeimy Barker [facility] Verified Date/Time: 01/04/2018 16:08:17 Reading Location: [address] Reading Room [id number] 15:07:00 Test Item Value Reference Range Comments PARTIAL THROMBOPLASTIN TIME (BEAKER) (test 102.2 seconds 22.5-36.0 quyo=519) [id number] 15:01:00 Test Item Value Reference Range Comments POTASSIUM (BEAKER) (test yoyn=897) 4.5 meq/L 3.5-5.1 BLOOD GAS, [id number] 14:50:00 Test Item Value Reference Range Comments PH ARTERIAL (BEAKER) (test ehjs=109) 7.41 7.35-7.45 PCO2 ARTERIAL (BEAKER) (test ebag=904) 46 mmHg 35-45 PO2 ARTERIAL (BEAKER) (test vfvi=741) 107 mmHg 80-90 O2 SATURATION ARTERIAL (BEAKER) (test oytn=163) 97.9 % 96.0-97.0 HCO3 ARTERIAL (BEAKER) (test ikvg=826) 28 mmol/L 21-29 BASE EXCESS ARTERIAL (BEAKER) (test mlbe=954) 3.0 mmol/L -2.0-3.0 PATIENT TEMPERATURE (BEAKER) (test oatp=2467) 37.0 C FIO2 (BEAKER) (test rilj=4058) 50.0 % POCT-GLUCOSE [id number] 12:20:00 Test Item Value Reference Range Comments POC-GLUCOSE METER (BEAKER) 168 mg/dL 70-[address] [facility] [address] [facility] (test ksjj=7421) [facility] [address] [id number] 11:47:00 Test Item Value Reference Range Comments POTASSIUM (BEAKER) (test qdap=803) 4.8 meq/L 3.5-5.1 [id number] 11:47:00 Test Item Value Reference Range Comments MAGNESIUM (BEAKER) (test eziv=657) 1.9 mg/dL 1.6-2.6 [id number] 11:47:00 Test Item Value Reference Range Comments PHOSPHORUS (BEAKER) (test evmv=553) 3.1 mg/dL 2.3-4.7 [id number] 11:47:00 Test Item Value Reference Range Comments SODIUM (BEAKER) (test svdo=140) 137 meq/L 136-145 RAD, ABDOMEN/KUB, 1 VIEW [id number] 10:59:00Reason for exam:->ileus, dilated bowel loopsShould this be performed at the bedside?->YesFINAL REPORT Three abdomen images Discussion: There is a paucity of visible small bowel gas. Feeding tube extends to the pyloric region. No grossly apparent bowel obstruction. Signed: Jony Mcfadden Verified Date/Time: 01/04/2018 10:59:39 Reading Location: [facility] Radiology Reading Room RAD, CHEST, 1 VIEW, NON [id number] 10:19:00Reason for exam:->ecmo, intubatedShould this be performed at the bedside?->YesFINAL REPORT Chest one view compared to January 03 Discussion: Pulmonary edema, support tubes, lines unchanged. Left chest tube in place. No effusion or pneumothorax. Signed: Jony Mcfadden Verified Date/Time: 01/04/2018 10:19:56 Reading Location : [facility] Radiology Reading Room CALCIUM, [id number] 10:17:00 Test Item Value Reference Range Comments CALCIUM IONIZED (BEAKER) (test nxps=827) 1.16 mmol/L 1.12-1.27 PH, BLOOD (BEAKER) (test dlbs=2971) 7.37 CBC W/PLT COUNT & AUTO [id number] 09:22:00 Test Item Value Reference Range Comments WHITE BLOOD CELL COUNT (BEAKER) (test lsap=212) 42.6 K/ L 3.5-10.5 RED BLOOD CELL COUNT (BEAKER) (test vgcz=738) 2.61 M/ L 3.93-5.22 HEMOGLOBIN (BEAKER) (test cygz=874) 7.8 GM/DL 11.2-15.7 HEMATOCRIT (BEAKER) (test yoga=201) 25.3 % 34.1-44.9 MEAN CORPUSCULAR VOLUME (BEAKER) (test dxhh=482) 96.9 fL 79.4-94.8 MEAN CORPUSCULAR HEMOGLOBIN (BEAKER) (test 29.9 pg 25.6-32.2 jlno=164) MEAN CORPUSCULAR HEMOGLOBIN CONC (BEAKER) (test 30.8 GM/DL 32.2-35.5 hhdc=363) RED CELL DISTRIBUTION WIDTH (BEAKER) (test 16.7 % 11.7-14.4 cazn=460) PLATELET COUNT (BEAKER) (test umuo=272) 246 K/CU MM 150-450 MEAN PLATELET VOLUME (BEAKER) (test cfbj=591) 10.3 fL 9.4-12.3 NUCLEATED RED BLOOD CELLS (BEAKER) (test 0 /100 WBC 0-0 xsdh=655) (CELLAVISION MANUAL DIFF)2018-01-04 09:22:00 Test Item Value Reference Range Comments NEUTROPHILS - REL (CELLAVISION)(BEAKER) (test 60 % xlpz=9423) LYMPHOCYTES - REL (CELLAVISION)(BEAKER) (test 7 % kftm=9287) MONOCYTES - REL (CELLAVISION)(BEAKER) (test 9 % hfhb=1577) METAMYELOCYTES - REL (CELLAVISION)(BEAKER) (test 7 % 0-0 rgpp=1733) MYELOCYTES - REL (CELLAVISION)(BEAKER) (test 12 % 0-0 ypql=4477) BANDS - REL (CELLAVISION)(BEAKER) (test 5 % 0-10 ueec=2728) NEUTROPHILS - ABS (CELLAVISION)(BEAKER) (test 25.56 K/ul 1.56-6.13 hkhc=4203) LYMPHOCYTES - ABS (CELLAVISION)(BEAKER) (test 2.98 K/ul 1.18-3.74 vamn=6781) MONOCYTES - ABS (CELLAVISION)(BEAKER) (test 3.83 K/uL 0.24-0.36 zvpv=0436) METAMYELOCYTES - ABS (CELLAVISION)(BEAKER) (test 2.98 K/uL 0.00-0.00 bfna=4797) MYELOCYTES-ABS (CELLAVISION)(BEAKER) (test 5.11 K/uL 0.00-0.00 oiaw=2383) BANDS - ABS (CELLAVISION)(BEAKER) (test 2.13 K/uL 0.00-0.80 toij=8375) TOTAL COUNTED (BEAKER) (test upqx=6121) 100 PLT MORPHOLOGY (BEAKER) (test jlrd=044) Normal TOXIC GRANULATION (BEAKER) (test wisx=314) Present SPHEROCYTES (BEAKER) (test ignj=833) 1+ few BASOPHILIC STIPPLING (BEAKER) (test swwh=104) Present ARTIFACT (CELLAVISION)(BEAKER) (test pzul=3889) Present PLATELET CONCENTRATION (CELLAVISION)(BEAKER) Adequate (test suen=8814) Received comment: User comments: Slide comments:HEPATIC FUNCTION [id number] 07:25:00 Test Item Value Reference Range Comments TOTAL PROTEIN (BEAKER) (test rdcp=591) 5.7 gm/dL 6.0-8.3 ALBUMIN (BEAKER) (test cpqz=9115) 2.4 g/dL 3.5-5.0 BILIRUBIN TOTAL (BEAKER) (test tqvh=210) 1.3 mg/dL 0.2-1.2 BILIRUBIN DIRECT (BEAKER) (test wezp=995) 1.0 mg/dL 0.1-0.5 ALKALINE PHOSPHATASE (BEAKER) (test znul=910) 125 U/L 40-150 AST (SGOT) (BEAKER) (test twnc=781) 65 U/L 5-34 ALT (SGPT) (BEAKER) (test qmtr=799) 53 U/L 6-55 POCT-GLUCOSE [id number] 06:06:00 Test Item Value Reference Range Comments POC-GLUCOSE METER (BEAKER) 161 mg/dL 70-110 TESTED AT [address] (test cgkh=1926) [facility] [address] U/S, ABDOMINAL, [id number] 05:25:00Reason for exam:->? acalculous cholecystitisReason for exam:->leukocytosis, [...] MDReport Verified Date/Time: 01/04/2018 05:25:20 Reading Location: [address] Reading Room VITAMIN B12 AND [id number] 05:09:00 Test Item Value Reference Range Comments VITAMIN B12 ([facility]) (test xgyf=632) > pg/mL 213-816 FOLATE ([facility]) (test xmpo=339) 6.3 ng/mL >=7.0 [id number] 05:06:00 Test Item Value Reference Range Comments FERRITIN ([facility]) (test infq=936) 1296 ng/mL 5-275 [id number] 04:46:00 Test Item Value Reference Range Comments D-DIMER QUANTITATIVE ([facility]) (test wjso=527) 7.77 MG/L FEU <0.50 Intended Use: The [...] exclusion of thrombosis is within 95-100% range.RETICULOCYTE [id number] 04:40:00 Test Item Value Reference Range Comments RETICULOCYTE COUNT PCT ([facility]) (test mpau=006) 1.3 % 0.5-1.7 [id number] 04:40:00 Test Item Value Reference Range Comments FIBRINOGEN LEVEL ([facility]) (test iunj=075) 612 mg/dl 225-434 IRON, TIBC, % SAT. (WITHOUT FERRITIN)2018-01-04 04:39:00 Test Item Value Reference Range Comments IRON (BEAKER) (test akje=922) 26 ug/dL 40-160 TOTAL IRON BINDING CAPACITY (BEAKER) (test 255 ug/dL 250-450 qlfx=150) IRON % SATURATION (2) (BEAKER) (test cgsw=1983) 10 % 20-55 [id number] 04:36:00 Test Item Value Reference Range Comments PARTIAL THROMBOPLASTIN TIME (BEAKER) (test 34.3 seconds 22.5-36.0 iymn=710) PROTHROMBIN TIME/[id number] 04:35:00 Test Item Value Reference Range Comments PROTIME (BEAKER) (test jnbs=224) 17.4 seconds 11.7-14.7 INR (BEAKER) (test uvnx=491) 1.4 <=5.9 RECOMMENDED COUMADIN/WARFARIN INR THERAPY RANGESSTANDARD DOSE: 2.0 - 3.0 Includes: PROPHYLAXIS forvenous thrombosis, systemic embolization; TREATMENT for venous thrombosis and/or pulmonary embolus.HIGH RISK: Target INR is 2.5-3.5 for patients with mechanical heart valves.LACTIC ACID, ARTERIAL, WHOLE [id number] 04:34:00 Test Item Value Reference Range Comments LACTATE BLOOD ARTERIAL (2) (BEAKER) (test 0.9 mmol/L 0.5-2.2 plwt=4321) Effective 11/12/2015: Units/Reference Range ChangeNew: 0.5-2.2 mmol/L Previous: 5 -20 mg/dLBASIC METABOLIC [id number] 04:32:00 Test Item Value Reference Range Comments SODIUM (BEAKER) (test 136 meq/L 136-145 vuph=668) POTASSIUM (BEAKER) (test 4.5 meq/L 3.5-5.1 hrkt=136) CHLORIDE (BEAKER) (test 103 meq/L 98-107 gubg=284) CO2 (BEAKER) (test 23 meq/L 22-29 xxeh=054) BLOOD UREA NITROGEN 27 mg/dL 7-21 (BEAKER) (test nqlo=618) CREATININE (BEAKER) (test 1.62 mg/dL 0.57-1.25 lmgl=303) GLUCOSE RANDOM (BEAKER) 114 mg/dL 70-105 (test zpbs=041) CALCIUM (BEAKER) (test 8.5 mg/dL 8.4-10.2 hjze=328) EGFR (BEAKER) (test 34 mL/min/1.73 sq m ESTIMATED GFR IS NOT zbgc=8107) ACCURATE CREATININE CLEARANCE IN PREDICTING GLOMERULAR FILTRATION RATE. ESTIMATED GFR IS NOT APPLICABLE FOR DIALYSIS PATIENTS. [id number] 04:32:00 Test Item Value Reference Range Comments POTASSIUM (BEAKER) (test msmo=090) 4.5 meq/L 3.5-5.1 LACTATE DEHYDROGENASE ([facility])2018-01-04 04:32:00 Test Item Value Reference Range Comments LACTATE DEHYDROGENASE (BEAKER) (test jskw=203) 716 U/L 125-220 BLOOD [id number] 00:00:00 Test Item Value Reference Range Comments CULTURE (BEAKER) (test yfcf=5002) No growth in 5 days BLOOD [id number] 00:00:00 Test Item Value Reference Range Comments CULTURE (BEAKER) (test tvsp=5343) No growth in 5 days POCT-GLUCOSE [id number] 23:54:00 Test Item Value Reference Range Comments POC-GLUCOSE METER (BEAKER) 144 mg/dL 70-[address] [facility] [address] [facility] (test haxo=9316) [facility] [address] [id number] 23:50:00 Test Item Value Reference Range Comments POTASSIUM (BEAKER) (test xdnu=668) 4.5 meq/L 3.5-5.1 CALCIUM, [id number] 23:47:00 Test Item Value Reference Range Comments CALCIUM IONIZED (BEAKER) (test sgjs=952) 1.13 mmol/L 1.12-1.27 PH, BLOOD (BEAKER) (test zodo=9449) 7.35 [id number] 19:25:00 Test Item Value Reference Range Comments POTASSIUM (BEAKER) (test oibr=342) 4.7 meq/L 3.5-5.1 [id number] 19:25:00 Test Item Value Reference Range Comments MAGNESIUM (BEAKER) (test vkjb=892) 2.1 mg/dL 1.6-2.6 [id number] 19:25:00 Test Item Value Reference Range Comments PHOSPHORUS (BEAKER) (test msjl=229) 4.4 mg/dL 2.3-4.7 [id number] 19:25:00 Test Item Value Reference Range Comments SODIUM (BEAKER) (test gmga=186) 135 meq/L 136-145 PH, [id number] 19:05:00 Test Item Value Reference Range Comments PH ARTERIAL (BEAKER) (test sunf=337) 7.36 7.35-7.45 BLOOD [id number] 18:37:00 Test Item Value Reference Range Comments CULTURE (BEAKER) (test albf=6264) No growth in 5 days PERIPHERAL BLOOD SMEAR - PATHOLOGIST [id number] 16:33:00 Test Item Value Reference Range Comments WBC MORPHOLOGY (BEAKER) (test Toxic Granulation lnzs=0389) WBC MORPHOLOGY (BEAKER) (test Left Shift ljmn=63099) PERIPHERAL SMR REVIEW (BEAKER) Cell counts confirmed. (test jxif=6778) AHDA-[id number] (BEAKER) Brook Dunaway M.D. (test bgmf=4542) (electronic signature) [id number] 16:02:00 Test Item Value Reference Range Comments POTASSIUM (BEAKER) (test rkxp=419) 5.0 meq/L 3.5-5.1 CALCIUM, [id number] 15:45:00 Test Item Value Reference Range Comments CALCIUM IONIZED (BEAKER) (test pokx=161) 1.13 mmol/L 1.12-1.27 PH, BLOOD (BEAKER) (test zppy=8263) 7.35 BLOOD GAS, [id number] 13:36:00 Test Item Value Reference Range Comments PH ARTERIAL (BEAKER) (test mprd=201) 7.35 7.35-7.45 PCO2 ARTERIAL (BEAKER) (test juel=275) 50 mmHg 35-45 PO2 ARTERIAL (BEAKER) (test fjey=381) 97 mmHg 80-90 O2 SATURATION ARTERIAL (BEAKER) (test ioub=658) 97.1 % 96.0-97.0 HCO3 ARTERIAL (BEAKER) (test ixri=818) 27 mmol/L 21-29 BASE EXCESS ARTERIAL (BEAKER) (test rsgf=458) 0.7 mmol/L -2.0-3.0 PATIENT TEMPERATURE (BEAKER) (test amef=6885) 36.5 C FIO2 (BEAKER) (test qytm=0218) 45.0 % [id number] 12:58:00 Test Item Value Reference Range Comments POTASSIUM (BEAKER) (test hbjy=127) 5.0 meq/L 3.5-5.1 CBC W/PLT COUNT & AUTO [id number] 10:49:00 Test Item Value Reference Range Comments WHITE BLOOD CELL COUNT (BEAKER) (test lxem=844) 47.1 K/ L 3.5-10.5 RED BLOOD CELL COUNT (BEAKER) (test peqn=574) 2.66 M/ L 3.93-5.22 HEMOGLOBIN (BEAKER) (test dyoz=820) 8.0 GM/DL 11.2-15.7 HEMATOCRIT (BEAKER) (test utsj=609) 25.1 % 34.1-44.9 MEAN CORPUSCULAR VOLUME (BEAKER) (test zpbq=035) 94.4 fL 79.4-94.8 MEAN CORPUSCULAR HEMOGLOBIN (BEAKER) (test 30.1 pg 25.6-32.2 tqml=588) MEAN CORPUSCULAR HEMOGLOBIN CONC (BEAKER) (test 31.9 GM/DL 32.2-35.5 hryx=061) RED CELL DISTRIBUTION WIDTH (BEAKER) (test 16.5 % 11.7-14.4 kfeq=103) PLATELET COUNT (BEAKER) (test hfre=435) 222 K/CU MM 150-450 MEAN PLATELET VOLUME (BEAKER) (test rqpf=678) 10.3 fL 9.4-12.3 NUCLEATED RED BLOOD CELLS (BEAKER) (test 0 /100 WBC 0-0 jevm=052) (CELLAVISION MANUAL DIFF)2018-01-03 10:49:00 Test Item Value Reference Range Comments NEUTROPHILS - REL (CELLAVISION)(BEAKER) (test 50 % covo=1284) LYMPHOCYTES - REL (CELLAVISION)(BEAKER) (test 6 % zhmd=7102) MONOCYTES - REL (CELLAVISION)(BEAKER) (test 7 % rpok=8561) METAMYELOCYTES - REL (CELLAVISION)(BEAKER) (test 8 % 0-0 mzuc=7085) MYELOCYTES - REL (CELLAVISION)(BEAKER) (test 19 % 0-0 pctl=5542) PROMYELOCYTES - REL (CELLAVSION)(BEAKER) (test 1 % 0-0 gsba=0112) BANDS - REL (CELLAVISION)(BEAKER) (test 10 % 0-10 fvfx=2758) ATYPICAL LYMPHOCYTES - REL (CELLAVISION)(BEAKER) 1 % 0-0 (test vvea=0563) NEUTROPHILS - ABS (CELLAVISION)(BEAKER) (test 23.55 K/ul 1.56-6.13 wqbg=4723) LYMPHOCYTES - ABS (CELLAVISION)(BEAKER) (test 2.83 K/ul 1.18-3.74 rqwe=7615) MONOCYTES - ABS (CELLAVISION)(BEAKER) (test 3.30 K/uL 0.24-0.36 nkqu=7287) METAMYELOCYTES - ABS (CELLAVISION)(BEAKER) (test 3.77 K/uL 0.00-0.00 jlnp=2690) MYELOCYTES-ABS (CELLAVISION)(BEAKER) (test 8.95 K/uL 0.00-0.00 hgyb=5267) PROMYELOCYTES - ABS (CELLAVISION)(BEAKER) (test 0.47 K/uL 0.00-0.00 rzfo=8618) BANDS - ABS (CELLAVISION)(BEAKER) (test 4.71 K/uL 0.00-0.80 nuhx=6331) ATYPICAL LYMPHOCYTES - ABS (CELLAVISION)(BEAKER) 0.47 K/uL 0.00-0.00 (test oiar=8552) TOTAL COUNTED (BEAKER) (test hxmf=3259) 100 SMUDGE CELLS (BEAKER) (test oapd=4102) Present GIANT PLATELETS (BEAKER) (test etdc=696) Present ANISOCYTOSIS (BEAKER) (test fkds=551) 1+ few MICROCYTES (BEAKER) (test hzwa=016) 1+ few PLATELET CONCENTRATION (CELLAVISION)(BEAKER) Adequate (test yctn=6557) Received comment: User comments: Slide comments:ANTITHROMBIN [id number] 09:33 :00 Test Item Value Reference Range Comments ANTITHROMBIN III ACTIVITY (BEAKER) (test rpab=860) 85.0 % 80.0-120.0 HEPARIN ASSAY - [id number] 07:53:00 Test Item Value Reference Range Comments UNFRACTIONATED HEPARIN-ANTI 10A (BEAKER) (test < u/ml 0.30-0.70 bddj=1473) Recommendations for Monitoring Unfractionated Heparin Therapeutic Range: 0.3- 0.7 u/mL with continuous IV infusionTHROMBOELASTOGRAPH (TEG)2018-01-03 07:46:00 Test Item Value Reference Range Comments TEG ACTIVATED CLOTTING TIME (BEAKER) (test 5.4 minutes 4.0-7.0 kekr=8970) TEG FIBRINOGEN ACTIVITY (BEAKER) (test 73.6 degrees 61.0-73.0 hbbj=8826) TEG PLT. AGGREGATION (BEAKER) (test uamo=3919) 66.5 MM 55.0-65.0 TEG FIBRINOLYSIS (BEAKER) (test zrju=3360) 13.4 % 0.0-5.0 TGH ACTIVATED CLOTTING TIME (BEAKER) (test 5.8 minutes 4.0-7.0 bncx=7970) TGH FIBRINOGEN ACTIVITY (BEAKER) (test 73.1 degrees 61.0-73.0 qhlv=7527) TGH PLT. AGGREGATION (BEAKER) (test ytyz=6637) 65.6 MM 55.0-65.0 TGH FIBRINOLYSIS (BEAKER) (test rwtz=0571) 0.0 % 0.0-5.0 RAD, CHEST, 1 VIEW, NON [id number] 06:16:00Reason for exam:->ecmo, intubatedShould this be performed [...] There is no pneumothorax. Signed: [facility] Verified Date/Time: 2017 06:16:44 Reading Location: [facility] C013T Transitional Reading Room [id number] 06:12:00 Test Item Value Reference Range Comments POTASSIUM (BEAKER) (test oxfi=714) 4.5 meq/L 3.5-5.1 [id number] 06:12:00 Test Item Value Reference Range Comments MAGNESIUM (BEAKER) (test ehqx=988) 2.1 mg/dL 1.6-2.6 [id number] 06:12:00 Test Item Value Reference Range Comments PHOSPHORUS (BEAKER) (test ndqh=406) 2.5 mg/dL 2.3-4.7 [id number] 06:12:00 Test Item Value Reference Range Comments SODIUM (BEAKER) (test besa=653) 138 meq/L 136-145 BASIC METABOLIC [id number] 06:12:00 Test Item Value Reference Range Comments SODIUM (BEAKER) (test 138 meq/L 136-145 qvrl=169) POTASSIUM (BEAKER) (test 4.5 meq/L 3.5-5.1 ikyf=079) CHLORIDE (BEAKER) (test 103 meq/L 98-107 otju=100) CO2 (BEAKER) (test 25 meq/L 22-29 hypg=651) BLOOD UREA NITROGEN 28 mg/dL 7-21 (BEAKER) (test nvnu=297) CREATININE (BEAKER) (test 1.84 mg/dL 0.57-1.25 pjuh=755) GLUCOSE RANDOM (BEAKER) 143 mg/dL 70-105 (test drrm=950) CALCIUM (BEAKER) (test 8.8 mg/dL 8.4-10.2 bkxs=110) EGFR (BEAKER) (test 30 mL/min/1.73 sq m ESTIMATED GFR IS NOT ttks=9903) ACCURATE CREATININE CLEARANCE IN PREDICTING GLOMERULAR FILTRATION RATE. ESTIMATED GFR IS NOT APPLICABLE FOR DIALYSIS PATIENTS. LACTATE DEHYDROGENASE (LDH)2018-01-03 06:12:00 Test Item Value Reference Range Comments LACTATE DEHYDROGENASE (BEAKER) (test xywc=203) 640 U/L 125-220 [id number] 06:03:00 Test Item Value Reference Range Comments D-DIMER QUANTITATIVE (BEAKER) (test phja=842) 4.96 MG/L FEU <0.50 Intended Use: The [...] is within 95-100% range.LACTIC ACID, ARTERIAL, WHOLE [id number] 06:02:00 Test Item Value Reference Range Comments LACTATE BLOOD ARTERIAL (2) (BEAKER) (test 1.3 mmol/L 0.5-2.2 yqst=6946) Effective 11/12/2015: Units/Reference Range ChangeNew: 0.5-2.2 mmol/L Previous: 5 -20 mg/[id number] 05:53:00 Test Item Value Reference Range Comments FIBRINOGEN LEVEL (BEAKER) (test cevg=703) 665 mg/dl 225-434 [id number] 05:53:00 Test Item Value Reference Range Comments PARTIAL THROMBOPLASTIN TIME (BEAKER) (test 31.2 seconds 22.5-36.0 eeby=115) PROTHROMBIN TIME/[id number] 05:51:00 Test Item Value Reference Range Comments PROTIME (BEAKER) (test gyeh=831) 17.1 seconds 11.7-14.7 INR (BEAKER) (test rvhz=050) 1.4 <=5.9 RECOMMENDED COUMADIN/WARFARIN INR THERAPY RANGESSTANDARD DOSE: 2.0 - 3.0 Includes: PROPHYLAXIS forvenous thrombosis, systemic embolization; TREATMENT for venous thrombosis and/or pulmonary embolus.HIGH RISK: Target INR is 2.5-3.5 for patients with mechanical heart valves.CALCIUM, [id number] 05:50:00 Test Item Value Reference Range Comments CALCIUM IONIZED (BEAKER) (test rxks=815) 1.17 mmol/L 1.12-1.27 PH, BLOOD (BEAKER) (test yabm=8695) 7.38 BLOOD GAS, [id number] 05:48:00 Test Item Value Reference Range Comments PH ARTERIAL (BEAKER) (test iyjd=263) 7.38 7.35-7.45 PCO2 ARTERIAL (BEAKER) (test mnod=895) 46 mmHg 35-45 PO2 ARTERIAL (BEAKER) (test tcbp=274) 76 mmHg 80-90 O2 SATURATION ARTERIAL (BEAKER) (test hdeh=139) 95.1 % 96.0-97.0 HCO3 ARTERIAL (BEAKER) (test worw=544) 27 mmol/L 21-29 BASE EXCESS ARTERIAL (BEAKER) (test sipz=663) 1.2 mmol/L -2.0-3.0 PATIENT TEMPERATURE (BEAKER) (test ztfw=3189) 36.7 C FIO2 (BEAKER) (test taoq=2181) 50.0 % PH, [id number] 05:44:00 Test Item Value Reference Range Comments PH ARTERIAL (BEAKER) (test rcno=381) 7.38 7.35-7.45 SODIUM NA-STAT [id number] 01:27:00 Test Item Value Reference Range Comments SODIUM (BEAKER) (test lepm=025) 135 meq/L 135-148 POTASSIUM-STAT [id number] 01:27:00 Test Item Value Reference Range Comments POTASSIUM (BEAKER) (test schj=835) 4.4 meq/L 3.6-5.5 CALCIUM, [id number] 01:27:00 Test Item Value Reference Range Comments CALCIUM IONIZED (BEAKER) (test sblc=861) 1.15 mmol/L 1.12-1.27 PH, BLOOD (BEAKER) (test bjyy=6543) 7.43 BLOOD GAS, [id number] 01:27:00 Test Item Value Reference Range Comments PH ARTERIAL (BEAKER) (test jxyg=210) 7.43 7.35-7.45 PCO2 ARTERIAL (BEAKER) (test oygm=852) 41 mmHg 35-45 PO2 ARTERIAL (BEAKER) (test hqts=479) 105 mmHg 80-90 O2 SATURATION ARTERIAL (BEAKER) (test ewro=099) 97.9 % 96.0-97.0 HCO3 ARTERIAL (BEAKER) (test sxwk=422) 26 mmol/L 21-29 BASE EXCESS ARTERIAL (BEAKER) (test pvsh=773) 1.8 mmol/L -2.0-3.0 PATIENT TEMPERATURE (BEAKER) (test jvps=3803) 37.1 C FIO2 (BEAKER) (test dhty=9110) 70.0 % GLUCOSE-STAT [id number] 01:27:00 Test Item Value Reference Range Comments GLUCOSE RANDOM (BEAKER) (test wgtr=336) 115 mg/dL 70-110 HGB/HCT (H&H) - STAT [id number] 01:27:00 Test Item Value Reference Range Comments HEMOGLOBIN (BEAKER) (test izzi=757) 8.1 g/dL 12.0-15.0 HEMATOCRIT (BEAKER) (test golt=680) 24.0 % 36.0-45.0 RAD, CHEST, 1 VIEW, NON [id number] 22:40:00Reason for exam:->Left IJ Dialysis PlacementShould this [...] MDReport Verified Date/Time: 01/02/2018 22:40:02 Reading Location[address] [place] [id number] 21:11:00 Test Item Value Reference Range Comments POTASSIUM (BEAKER) (test wptn=708) 4.8 meq/L 3.5-5.1 [id number] 21:11:00 Test Item Value Reference Range Comments MAGNESIUM (BEAKER) (test xszy=906) 2.1 mg/dL 1.6-2.6 [id number] 21:11:00 Test Item Value Reference Range Comments PHOSPHORUS (BEAKER) (test krsc=364) 3.1 mg/dL 2.3-4.7 [id number] 21:11:00 Test Item Value Reference Range Comments SODIUM (BEAKER) (test unqq=363) 137 meq/L 136-145 [id number] 20:47:00 Test Item Value Reference Range Comments PARTIAL THROMBOPLASTIN TIME (BEAKER) (test 31.5 seconds 22.5-36.0 kgwc=815) HGB/HCT (H&H) - STAT [id number] 20:39:00 Test Item Value Reference Range Comments HEMOGLOBIN (BEAKER) (test bmpg=477) 8.1 g/dL 12.0-15.0 HEMATOCRIT (BEAKER) (test kfur=440) 24.0 % 36.0-45.0 CALCIUM, [id number] 20:39:00 Test Item Value Reference Range Comments CALCIUM IONIZED (BEAKER) (test txyz=432) 1.14 mmol/L 1.12-1.27 PH, BLOOD (BEAKER) (test svqb=0204) 7.46 POTASSIUM-STAT [id number] 20:38:00 Test Item Value Reference Range Comments POTASSIUM (BEAKER) (test dsuy=642) 4.5 meq/L 3.6-5.5 GLUCOSE-STAT [id number] 20:38:00 Test Item Value Reference Range Comments GLUCOSE RANDOM (BEAKER) (test lseu=652) 150 mg/dL 70-110 BLOOD GAS, [id number] 19:49:00 Test Item Value Reference Range Comments PH ARTERIAL (BEAKER) (test holb=044) 7.47 7.35-7.45 PCO2 ARTERIAL (BEAKER) (test ebim=130) 37 mmHg 35-45 PO2 ARTERIAL (BEAKER) (test qjsp=718) 114 mmHg 80-90 O2 SATURATION ARTERIAL (BEAKER) (test xnog=222) 98.4 % 96.0-97.0 HCO3 ARTERIAL (BEAKER) (test gqsl=953) 26 mmol/L 21-29 BASE EXCESS ARTERIAL (BEAKER) (test ahiw=968) 2.5 mmol/L -2.0-3.0 PATIENT TEMPERATURE (BEAKER) (test dcqm=9437) 36.9 C FIO2 (BEAKER) (test ufaj=7546) 60.0 % PH, [id number] 19:49:00 Test Item Value Reference Range Comments PH ARTERIAL (BEAKER) (test enkv=116) 7.47 7.35-7.45 RAD, CHEST, 1 VIEW, NON [id number] 18:55:00Reason for exam:->check picc placementShould this be [...] radiograph from earlier same date. Signed: Tashi Heard MDReport Verified Date/Time: 01/02/2018 18:55:41 Reading Location: [address] Consult Reading Room [id number] 17:00:00 Test Item Value Reference Range Comments POTASSIUM (BEAKER) (test xntf=101) 5.0 meq/L 3.5-5.1 CALCIUM, [id number] 16:32:00 Test Item Value Reference Range Comments CALCIUM IONIZED (BEAKER) (test vjbb=357) 1.15 mmol/L 1.12-1.27 PH, BLOOD (BEAKER) (test neit=1566) 7.38 [id number] 13:24:00 Test Item Value Reference Range Comments PARTIAL THROMBOPLASTIN TIME (BEAKER) (test 47.8 seconds 22.5-36.0 xyxf=519) BLOOD GAS, [id number] 13:02:00 Test Item Value Reference Range Comments PH ARTERIAL (BEAKER) (test zmnv=371) 7.39 7.35-7.45 PCO2 ARTERIAL (BEAKER) (test dxww=132) 46 mmHg 35-45 PO2 ARTERIAL (BEAKER) (test itxr=092) 151 mmHg 80-90 O2 SATURATION ARTERIAL (BEAKER) (test xphm=628) 98.9 % 96.0-97.0 HCO3 ARTERIAL (BEAKER) (test mysr=034) 27 mmol/L 21-29 BASE EXCESS ARTERIAL (BEAKER) (test wcuc=377) 1.9 mmol/L -2.0-3.0 PATIENT TEMPERATURE (BEAKER) (test kcct=5326) 36.8 C FIO2 (BEAKER) (test etvq=4596) 60.0 % [id number] 12:30:00 Test Item Value Reference Range Comments POTASSIUM (BEAKER) (test jjbm=763) 4.9 meq/L 3.5-5.1 Check Serum Magnesium level 2 hours after IV magnesium replacement. May repeat dose X 1 if serum magnesium is less than 2.0 mg/[id number] 12:30:00 Test Item Value Reference Range Comments MAGNESIUM (BEAKER) (test jtil=251) 1.8 mg/dL 1.6-2.6 Check Serum Magnesium level 2 hours after IV magnesium replacement. May repeat dose X 1 if serum magnesium is less than 2.0 mg/dLPOCT-GLUCOSE [id number] 12:10:00 Test Item Value Reference Range Comments POC-GLUCOSE METER (BEAKER) 174 mg/dL 70-[address] [facility] [address] [facility] (test ofel=5239) [facility] [address] BLOOD GAS, [id number] 12:08:00 Test Item Value Reference Range Comments PH ARTERIAL (BEAKER) (test iebb=880) 7.41 7.35-7.45 PCO2 ARTERIAL (BEAKER) (test rfmy=389) 49 mmHg 35-45 PO2 ARTERIAL (BEAKER) (test fkyb=999) 147 mmHg 80-90 O2 SATURATION ARTERIAL (BEAKER) (test mjoo=949) 98.9 % 96.0-97.0 HCO3 ARTERIAL (BEAKER) (test ywhl=282) 30 mmol/L 21-29 BASE EXCESS ARTERIAL (BEAKER) (test mxey=470) 4.9 mmol/L -2.0-3.0 PATIENT TEMPERATURE (BEAKER) (test qlpr=3521) 36.9 C FIO2 (BEAKER) (test whxw=1693) 60.0 % [id number] 11:31:00 Test Item Value Reference Range Comments FIBRINOGEN LEVEL (BEAKER) (test lroh=492) 674 mg/dl 225-434 PROTHROMBIN TIME/[id number] 11:30:00 Test Item Value Reference Range Comments PROTIME (BEAKER) (test tzed=630) 17.1 seconds 11.7-14.7 INR (BEAKER) (test elop=255) 1.4 <=5.9 RECOMMENDED COUMADIN/WARFARIN INR THERAPY RANGESSTANDARD DOSE: 2.0 - 3.0 Includes: PROPHYLAXIS forvenous thrombosis, systemic embolization; TREATMENT for venous thrombosis and/or pulmonary embolus.HIGH RISK: Target INR is 2.5-3.5 for patients with mechanical heart valves.BLOOD GAS, [id number] 11:17:00 Test Item Value Reference Range Comments PH ARTERIAL (BEAKER) (test tmov=518) 7.38 7.35-7.45 PCO2 ARTERIAL (BEAKER) (test ansc=301) 50 mmHg 35-45 PO2 ARTERIAL (BEAKER) (test rhoi=449) 123 mmHg 80-90 O2 SATURATION ARTERIAL (BEAKER) (test ifzh=610) 98.4 % 96.0-97.0 HCO3 ARTERIAL (BEAKER) (test ujxs=818) 29 mmol/L 21-29 BASE EXCESS ARTERIAL (BEAKER) (test vrva=522) 2.7 mmol/L -2.0-3.0 PATIENT TEMPERATURE (BEAKER) (test kpfh=8173) 36.5 C FIO2 (BEAKER) (test ussz=7189) 60.0 % CBC W/PLT COUNT & AUTO [id number] 10:17:00 Test Item Value Reference Range Comments WHITE BLOOD CELL COUNT (BEAKER) (test ewcg=174) 44.2 K/ L 3.5-10.5 RED BLOOD CELL COUNT (BEAKER) (test ezng=454) 2.54 M/ L 3.93-5.22 HEMOGLOBIN (BEAKER) (test hgie=223) 7.7 GM/DL 11.2-15.7 HEMATOCRIT (BEAKER) (test zlxd=000) 23.8 % 34.1-44.9 MEAN CORPUSCULAR VOLUME (BEAKER) (test cfst=323) 93.7 fL 79.4-94.8 MEAN CORPUSCULAR HEMOGLOBIN (BEAKER) (test 30.3 pg 25.6-32.2 xzhy=321) MEAN CORPUSCULAR HEMOGLOBIN CONC (BEAKER) (test 32.4 GM/DL 32.2-35.5 rvxq=370) RED CELL DISTRIBUTION WIDTH (BEAKER) (test 16.8 % 11.7-14.4 exhz=751) PLATELET COUNT (BEAKER) (test lhtw=727) 142 K/CU MM 150-450 MEAN PLATELET VOLUME (BEAKER) (test dvom=206) 10.7 fL 9.4-12.3 NUCLEATED RED BLOOD CELLS (BEAKER) (test 0 /100 WBC 0-0 yrim=014) (CELLAVISION MANUAL DIFF)2018-01-02 10:17:00 Test Item Value Reference Range Comments NEUTROPHILS - REL (CELLAVISION)(BEAKER) (test 51 % mwxu=7782) LYMPHOCYTES - REL (CELLAVISION)(BEAKER) (test 9 % mdfr=3203) MONOCYTES - REL (CELLAVISION)(BEAKER) (test 7 % csja=3200) METAMYELOCYTES - REL (CELLAVISION)(BEAKER) (test 6 % 0-0 gfaq=0928) MYELOCYTES - REL (CELLAVISION)(BEAKER) (test 10 % 0-0 hoej=6137) PROMYELOCYTES - REL (CELLAVSION)(BEAKER) (test 7 % 0-0 vhhl=2899) BANDS - REL (CELLAVISION)(BEAKER) (test 12 % 0-10 hmqm=6092) NEUTROPHILS - ABS (CELLAVISION)(BEAKER) (test 22.54 K/ul 1.56-6.13 slkl=0694) LYMPHOCYTES - ABS (CELLAVISION)(BEAKER) (test 3.98 K/ul 1.18-3.74 mwgs=7767) MONOCYTES - ABS (CELLAVISION)(BEAKER) (test 3.09 K/uL 0.24-0.36 zlzo=0989) METAMYELOCYTES - ABS (CELLAVISION)(BEAKER) (test 2.65 K/uL 0.00-0.00 tuyg=3660) MYELOCYTES-ABS (CELLAVISION)(BEAKER) (test 4.42 K/uL 0.00-0.00 zeph=5658) PROMYELOCYTES - ABS (CELLAVISION)(BEAKER) (test 3.09 K/uL 0.00-0.00 thqe=4204) BANDS - ABS (CELLAVISION)(BEAKER) (test 5.30 K/uL 0.00-0.80 exyn=6437) TOTAL COUNTED (BEAKER) (test ynlo=2967) 100 LARGE PLT(BEAKER) (test prbg=2953) Present TOXIC GRANULATION (BEAKER) (test prkn=727) Present ANISOCYTOSIS (BEAKER) (test enym=583) 1+ few MICROCYTES (BEAKER) (test qrxw=998) 1+ few ARTIFACT (CELLAVISION)(BEAKER) (test wvbf=6748) Present PLATELET CONCENTRATION (CELLAVISION)(BEAKER) Decreased (test gdux=1686) Received comment: User comments: Slide comments:BLOOD GAS, [id number] 09 :54:00 Test Item Value Reference Range Comments PH ARTERIAL (BEAKER) (test obwr=682) 7.39 7.35-7.45 PCO2 ARTERIAL (BEAKER) (test kfth=427) 47 mmHg 35-45 PO2 ARTERIAL (BEAKER) (test hgor=775) 169 mmHg 80-90 O2 SATURATION ARTERIAL (BEAKER) (test crbm=052) 99.1 % 96.0-97.0 HCO3 ARTERIAL (BEAKER) (test cuis=533) 28 mmol/L 21-29 BASE EXCESS ARTERIAL (BEAKER) (test uese=908) 2.5 mmol/L -2.0-3.0 PATIENT TEMPERATURE (BEAKER) (test jgre=3643) 36.5 C FIO2 (BEAKER) (test icgm=7750) 60.0 % HIV-1 ANTIGEN WITH HIV-1/2 [id number] 08:51:00 Test Item Value Reference Range Comments HIV-1 ANTIGEN WITH HIV 1\\T\\2 ANTIBODY (2) Nonreactive Nonreactive (BEAKER) (test gtjg=6416) ANTITHROMBIN [id number] 08:41:00 Test Item Value Reference Range Comments ANTITHROMBIN III ACTIVITY (BEAKER) (test mlha=689) 72.0 % 80.0-120.0 ANTITHROMBIN [id number] 08:41:00 Test Item Value Reference Range Comments ANTITHROMBIN III ACTIVITY (BEAKER) (test sgtd=134) 77.0 % 80.0-120.0 HEPARIN ASSAY - [id number] 08:14:00 Test Item Value Reference Range Comments UNFRACTIONATED HEPARIN-ANTI 10A (BEAKER) (test < u/ml 0.30-0.70 jrns=3076) Recommendations for Monitoring Unfractionated Heparin Therapeutic Range: 0.3- 0.7 u/mL with continuous IV infusionBLOOD GAS, [id number] 08:07:00 Test Item Value Reference Range Comments PH ARTERIAL (BEAKER) (test khzv=481) 7.42 7.35-7.45 PCO2 ARTERIAL (BEAKER) (test hybq=623) 43 mmHg 35-45 PO2 ARTERIAL (BEAKER) (test iuom=774) 154 mmHg 80-90 O2 SATURATION ARTERIAL (BEAKER) (test vtiw=127) 99.0 % 96.0-97.0 HCO3 ARTERIAL (BEAKER) (test vueu=069) 27 mmol/L 21-29 BASE EXCESS ARTERIAL (BEAKER) (test lbrx=045) 2.4 mmol/L -2.0-3.0 PATIENT TEMPERATURE (BEAKER) (test glum=6628) 36.5 C FIO2 (BEAKER) (test aeaf=3414) 50.0 % RAD, CHEST, 1 VIEW, NON [id number] 07:45:00Reason for exam:->ecmo, intubatedShould this be performed at the bedside?->YesFINAL REPORT Chest one view compared to January 01 Discussion: There is corrected positioning of left IJ line tip. Other support tubes and cardiovascular tubing bilateral airspace opacities are overall similar. No gross effusion or pneumothorax. Signed: [facility] Verified Date/Time: 01/02/2018 07: 45:55 Reading Location: [facility] Reading Room THROMBOELASTOGRAPH (TEG)2018-01-02 07:28:00 Test Item Value Reference Range Comments TEG ACTIVATED CLOTTING TIME (BEAKER) (test 14.5 minutes 4.0-7.0 lorf=6429) TEG FIBRINOGEN ACTIVITY (BEAKER) (test 48.6 degrees 61.0-73.0 drjf=5686) TEG PLT. AGGREGATION (BEAKER) (test zudh=9454) 70.3 MM 55.0-65.0 TEG FIBRINOLYSIS (BEAKER) (test lztm=4610) 0.0 % 0.0-5.0 TGH ACTIVATED CLOTTING TIME (BEAKER) (test 7.9 minutes 4.0-7.0 goxk=4564) TGH FIBRINOGEN ACTIVITY (BEAKER) (test 69.4 degrees 61.0-73.0 llbw=4937) TGH PLT. AGGREGATION (BEAKER) (test ucka=9998) 69.0 MM 55.0-65.0 TGH FIBRINOLYSIS (BEAKER) (test wnck=1765) 0.0 % 0.0-5.0 BLOOD [id number] 06:00:00 Test Item Value Reference Range Comments CULTURE (BEAKER) (test aygy=2671) No growth in 5 days BLOOD GAS, [id number] 05:50:00 Test Item Value Reference Range Comments PH ARTERIAL (BEAKER) (test hhxm=393) 7.38 7.35-7.45 PCO2 ARTERIAL (BEAKER) (test hgbo=958) 50 mmHg 35-45 PO2 ARTERIAL (BEAKER) (test zbce=210) 460 mmHg 80-90 O2 SATURATION ARTERIAL (BEAKER) (test diyg=742) 99.8 % 96.0-97.0 HCO3 ARTERIAL (BEAKER) (test vato=035) 29 mmol/L 21-29 BASE EXCESS ARTERIAL (BEAKER) (test mtgv=736) 2.9 mmol/L -2.0-3.0 PATIENT TEMPERATURE (BEAKER) (test zygm=9616) 36.5 C FIO2 (BEAKER) (test nfpf=5843) 100.0 % [id number] 05:44:00 Test Item Value Reference Range Comments D-DIMER QUANTITATIVE (BEAKER) (test hupw=795) 2.52 MG/L FEU <0.50 Intended Use: The D-Dimer Assay can be used to aid in the diagnosis of Deep Vein Thrombosis (DVT) and Pulmonary Embolism Disease (PED).In patients with low pre-test probability, various studies concerning STA Liatest D-dimer test have reported that with a cutoff value of 0.50 MG/L FEU, the Negative Predictive Value (NPV) regarding the exclusion of thrombosis is within 95-100% range.[id number] 05:42:00 Test Item Value Reference Range Comments PARTIAL THROMBOPLASTIN TIME (BEAKER) (test 46.9 seconds 22.5-36.0 pnkr=815) BASIC METABOLIC [id number] 05:40:00 Test Item Value Reference Range Comments SODIUM (BEAKER) (test 139 meq/L 136-145 hedu=043) POTASSIUM (BEAKER) (test 4.7 meq/L 3.5-5.1 hbrs=204) CHLORIDE (BEAKER) (test 104 meq/L 98-107 blnp=951) CO2 (BEAKER) (test 26 meq/L 22-29 kfox=142) BLOOD UREA NITROGEN 23 mg/dL 7-21 (BEAKER) (test ypwq=742) CREATININE (BEAKER) (test 1.41 mg/dL 0.57-1.25 krjg=872) GLUCOSE RANDOM (BEAKER) 138 mg/dL 70-105 (test lazi=515) CALCIUM (BEAKER) (test 8.7 mg/dL 8.4-10.2 beyi=462) EGFR (BEAKER) (test mL/min/1.73 sq m INSUFFICIENT CLINICAL DATA lvzc=9112) TO CALCULATE ESTIMATED GFR. [id number] 05:39:00 Test Item Value Reference Range Comments POTASSIUM (BEAKER) (test spdj=077) 4.7 meq/L 3.5-5.1 [id number] 05:39:00 Test Item Value Reference Range Comments MAGNESIUM (BEAKER) (test xgfp=039) 1.9 mg/dL 1.6-2.6 [id number] 05:39:00 Test Item Value Reference Range Comments PHOSPHORUS (BEAKER) (test mfys=367) 2.7 mg/dL 2.3-4.7 [id number] 05:39:00 Test Item Value Reference Range Comments SODIUM (BEAKER) (test qlgl=647) 139 meq/L 136-145 HEPATIC FUNCTION [id number] 05:39:00 Test Item Value Reference Range Comments TOTAL PROTEIN (BEAKER) (test mxgv=223) 5.1 gm/dL 6.0-8.3 ALBUMIN (BEAKER) (test txmf=6474) 2.3 g/dL 3.5-5.0 BILIRUBIN TOTAL (BEAKER) (test qfhm=694) 0.9 mg/dL 0.2-1.2 BILIRUBIN DIRECT (BEAKER) (test rrym=807) 0.7 mg/dL 0.1-0.5 ALKALINE PHOSPHATASE (BEAKER) (test gqqs=807) 88 U/L 40-150 AST (SGOT) (BEAKER) (test nmnb=449) 35 U/L 5-34 ALT (SGPT) (BEAKER) (test ncdx=508) 22 U/L 6-55 LACTATE DEHYDROGENASE (LDH)2018-01-02 05:39:00 Test Item Value Reference Range Comments LACTATE DEHYDROGENASE (BEAKER) (test dbqr=268) 601 U/L 125-220 LACTIC ACID, ARTERIAL, WHOLE [id number] 05:31:00 Test Item Value Reference Range Comments LACTATE BLOOD ARTERIAL (2) (BEAKER) (test 0.9 mmol/L 0.5-2.2 jdgr=5166) Effective 11/12/2015: Units/Reference Range ChangeNew: 0.5-2.2 mmol/L Previous: 5 -20 mg/dLCALCIUM, [id number] 05:28:00 Test Item Value Reference Range Comments CALCIUM IONIZED (BEAKER) (test jeqd=108) 1.14 mmol/L 1.12-1.27 PH, BLOOD (BEAKER) (test vuzu=0721) 7.42 HGB/HCT (H&H) - STAT [id number] 05:27:00 Test Item Value Reference Range Comments HEMOGLOBIN (BEAKER) (test vrvg=696) 8.5 g/dL 12.0-15.0 HEMATOCRIT (BEAKER) (test xhby=889) 25.0 % 36.0-45.0 GLUCOSE-STAT [id number] 05:27:00 Test Item Value Reference Range Comments GLUCOSE RANDOM (BEAKER) (test zhjd=378) 140 mg/dL 70-110 BLOOD GAS, [id number] 05:27:00 Test Item Value Reference Range Comments PH ARTERIAL (BEAKER) (test tcrl=130) 7.41 7.35-7.45 PCO2 ARTERIAL (BEAKER) (test wlfv=024) 44 mmHg 35-45 PO2 ARTERIAL (BEAKER) (test nkpp=301) 120 mmHg 80-90 O2 SATURATION ARTERIAL (BEAKER) (test bbeh=921) 98.4 % 96.0-97.0 HCO3 ARTERIAL (BEAKER) (test tpoo=018) 28 mmol/L 21-29 BASE EXCESS ARTERIAL (BEAKER) (test nife=921) 3.0 mmol/L -2.0-3.0 PATIENT TEMPERATURE (BEAKER) (test ufwk=1568) 36.8 C FIO2 (BEAKER) (test abtp=0832) 50.0 % PH, [id number] 05:25:00 Test Item Value Reference Range Comments PH ARTERIAL (BEAKER) (test ekmp=874) 7.41 7.35-7.45 SODIUM NA-STAT [id number] 05:25:00 Test Item Value Reference Range Comments SODIUM (BEAKER) (test zneu=674) 136 meq/L 135-148 POTASSIUM-STAT [id number] 05:25:00 Test Item Value Reference Range Comments POTASSIUM (BEAKER) (test nhcj=461) 4.6 meq/L 3.6-5.5 BLOOD GAS, [id number] 01:12:00 Test Item Value Reference Range Comments PH ARTERIAL (BEAKER) (test sjrd=995) 7.42 7.35-7.45 PCO2 ARTERIAL (BEAKER) (test sawd=389) 42 mmHg 35-45 PO2 ARTERIAL (BEAKER) (test pajm=983) 161 mmHg 80-90 O2 SATURATION ARTERIAL (BEAKER) (test zfbd=217) 99.1 % 96.0-97.0 HCO3 ARTERIAL (BEAKER) (test ilqu=476) 27 mmol/L 21-29 BASE EXCESS ARTERIAL (BEAKER) (test daef=541) 2.3 mmol/L -2.0-3.0 PATIENT TEMPERATURE (BEAKER) (test bvql=5348) 36.3 C FIO2 (BEAKER) (test upho=0608) 50.0 % [id number] 22:10:00 Test Item Value Reference Range Comments POTASSIUM (BEAKER) (test wkkm=477) 5.0 meq/L 3.5-5.1 [id number] 22:10:00 Test Item Value Reference Range Comments MAGNESIUM (BEAKER) (test zsmg=522) 2.1 mg/dL 1.6-2.6 [id number] 22:10:00 Test Item Value Reference Range Comments PHOSPHORUS (BEAKER) (test xbra=405) 2.8 mg/dL 2.3-4.7 [id number] 22:10:00 Test Item Value Reference Range Comments SODIUM (BEAKER) (test fkqu=706) 139 meq/L 136-145 [id number] 22:08:00 Test Item Value Reference Range Comments PARTIAL THROMBOPLASTIN TIME (BEAKER) (test 36.9 seconds 22.5-36.0 hdjl=351) BLOOD GAS, [id number] 21:44:00 Test Item Value Reference Range Comments PH ARTERIAL (BEAKER) (test cchs=128) 7.39 7.35-7.45 PCO2 ARTERIAL (BEAKER) (test elio=608) 47 mmHg 35-45 PO2 ARTERIAL (BEAKER) (test hhey=705) 111 mmHg 80-90 O2 SATURATION ARTERIAL (BEAKER) (test xsxy=487) 98.0 % 96.0-97.0 HCO3 ARTERIAL (BEAKER) (test guiq=341) 28 mmol/L 21-29 BASE EXCESS ARTERIAL (BEAKER) (test ilxl=717) 2.1 mmol/L -2.0-3.0 PATIENT TEMPERATURE (BEAKER) (test jqec=8728) 36.8 C FIO2 (BEAKER) (test mubh=8040) 50.0 % CALCIUM, [id number] 21:44:00 Test Item Value Reference Range Comments CALCIUM IONIZED (BEAKER) (test kwli=783) 1.18 mmol/L 1.12-1.27 PH, BLOOD (BEAKER) (test jsfp=2356) 7.39 PH, [id number] 21:43:00 Test Item Value Reference Range Comments PH ARTERIAL (BEAKER) (test jhni=340) 7.39 7.35-7.45 THROMBOELASTOGRAPH (TEG)2018-01-01 20:10:00 Test Item Value Reference Range Comments TEG ACTIVATED CLOTTING TIME (BEAKER) (test 13.3 minutes 4.0-7.0 upwn=7772) TEG FIBRINOGEN ACTIVITY (BEAKER) (test 55.1 degrees 61.0-73.0 criz=9311) TEG PLT. AGGREGATION (BEAKER) (test ajir=4001) 64.7 MM 55.0-65.0 TEG FIBRINOLYSIS (BEAKER) (test rwgj=4616) 0.0 % 0.0-5.0 TGH ACTIVATED CLOTTING TIME (BEAKER) (test 8.0 minutes 4.0-7.0 imhs=0299) TGH FIBRINOGEN ACTIVITY (BEAKER) (test 67.6 degrees 61.0-73.0 mtsh=4467) TGH PLT. AGGREGATION (BEAKER) (test qifb=1518) 57.1 MM 55.0-65.0 TGH FIBRINOLYSIS (BEAKER) (test ugth=9938) 0.0 % 0.0-5.0 POCT-GLUCOSE [id number] 19:16:00 Test Item Value Reference Range Comments POC-GLUCOSE METER (BEAKER) 134 mg/dL 70-[address] [facility] [address] [facility] (test qaiq=6201) [facility] [address] BLOOD GAS, [id number] 18:50:00 Test Item Value Reference Range Comments PH ARTERIAL (BEAKER) (test lbao=945) 7.45 7.35-7.45 PCO2 ARTERIAL (BEAKER) (test lmte=209) 39 mmHg 35-45 PO2 ARTERIAL (BEAKER) (test ckpx=635) 121 mmHg 80-90 O2 SATURATION ARTERIAL (BEAKER) (test zlfv=419) 98.6 % 96.0-97.0 HCO3 ARTERIAL (BEAKER) (test hfgb=105) 26 mmol/L 21-29 BASE EXCESS ARTERIAL (BEAKER) (test ujqx=256) 2.1 mmol/L -2.0-3.0 PATIENT TEMPERATURE (BEAKER) (test pdcx=4805) 36.7 C FIO2 (BEAKER) (test mhvn=8589) 50.0 % [id number] 16:43:00 Test Item Value Reference Range Comments POTASSIUM (BEAKER) (test mmgh=318) 5.1 meq/L 3.5-5.1 POCT-GLUCOSE [id number] 16:30:00 Test Item Value Reference Range Comments POC-GLUCOSE METER (BEAKER) 118 mg/dL 70-110 TESTED AT [address] (test usqs=2748) [facility] [address] POCT-GLUCOSE [id number] 16:30:00 Test Item Value Reference Range Comments POC-GLUCOSE METER (BEAKER) 134 mg/dL 70-110 TESTED AT [address] (test gaou=5379) [facility] [address] POCT-GLUCOSE [id number] 16:30:00 Test Item Value Reference Range Comments POC-GLUCOSE METER (BEAKER) 124 mg/dL 70-110 TESTED AT [address] (test hmps=5636) [facility] [address] POCT-GLUCOSE [id number] 16:30:00 Test Item Value Reference Range Comments POC-GLUCOSE METER (BEAKER) 96 mg/dL 70-110 TESTED AT [address] (test hekv=1781) [facility] [address] POCT-GLUCOSE [id number] 16:30:00 Test Item Value Reference Range Comments POC-GLUCOSE METER (BEAKER) 105 mg/dL 70-110 TESTED AT [address] (test fgle=8572) [facility] [address] POCT-GLUCOSE [id number] 16:30:00 Test Item Value Reference Range Comments POC-GLUCOSE METER (BEAKER) 123 mg/dL 70-110 TESTED AT [address] (test nbvj=2755) [facility] [address] CALCIUM, [id number] 16:14:00 Test Item Value Reference Range Comments CALCIUM IONIZED (BEAKER) (test jcrp=096) 1.17 mmol/L 1.12-1.27 PH, BLOOD (BEAKER) (test gsee=7813) 7.48 BLOOD GAS, [id number] 16:14:00 Test Item Value Reference Range Comments PH ARTERIAL (BEAKER) (test tkmf=292) 7.48 7.35-7.45 PCO2 ARTERIAL (BEAKER) (test iabk=019) 38 mmHg 35-45 PO2 ARTERIAL (BEAKER) (test ekwt=776) 151 mmHg 80-90 O2 SATURATION ARTERIAL (BEAKER) (test huqg=601) 99.1 % 96.0-97.0 HCO3 ARTERIAL (BEAKER) (test ilzz=833) 28 mmol/L 21-29 BASE EXCESS ARTERIAL (BEAKER) (test yejy=711) 3.7 mmol/L -2.0-3.0 PATIENT TEMPERATURE (BEAKER) (test pght=3409) 36.7 C FIO2 (BEAKER) (test ifbb=4575) 50.0 % [id number] 13:03:00 Test Item Value Reference Range Comments POTASSIUM (BEAKER) (test azpu=235) 5.0 meq/L 3.5-5.1 CT BRAIN WITHOUT IV CONTRAST - [id number] 12:53:00Reason for exam:-> ECMO protocolFINAL REPORT CT [...] with bilateral mastoid effusions. Signed: Saturnino Powers Verified Date/Time: 2017 12:53:19 Reading Location: [address] Neuro Reading Room BLOOD GAS, [id number] 12:25:00 Test Item Value Reference Range Comments PH ARTERIAL (BEAKER) (test cnnb=619) 7.43 7.35-7.45 PCO2 ARTERIAL (BEAKER) (test zsql=395) 40 mmHg 35-45 PO2 ARTERIAL (BEAKER) (test nrlw=591) 128 mmHg 80-90 O2 SATURATION ARTERIAL (BEAKER) (test rqjv=860) 98.7 % 96.0-97.0 HCO3 ARTERIAL (BEAKER) (test kjsc=152) 26 mmol/L 21-29 BASE EXCESS ARTERIAL (BEAKER) (test tuoh=649) 1.5 mmol/L -2.0-3.0 PATIENT TEMPERATURE (BEAKER) (test enht=4731) 36.6 C FIO2 (BEAKER) (test ocjs=4484) 50.0 % THROMBOELASTOGRAPH (TEG)2018-01-01 12:25:00 Test Item Value Reference Range Comments TEG ACTIVATED CLOTTING TIME (BEAKER) (test 30.5 minutes 4.0-7.0 qpvk=3852) TEG FIBRINOGEN ACTIVITY (BEAKER) (test 12.0 degrees 61.0-73.0 ttdr=4971) TEG PLT. AGGREGATION (BEAKER) (test nfac=5741) 50.9 MM 55.0-65.0 TEG FIBRINOLYSIS (BEAKER) (test elrf=8880) 0.0 % 0.0-5.0 TGH ACTIVATED CLOTTING TIME (BEAKER) (test 9.3 minutes 4.0-7.0 qnhd=2068) TGH FIBRINOGEN ACTIVITY (BEAKER) (test 64.3 degrees 61.0-73.0 uidp=7862) TGH PLT. AGGREGATION (BEAKER) (test qcne=7810) 61.9 MM 55.0-65.0 TGH FIBRINOLYSIS (BEAKER) (test jtes=2006) 0.0 % 0.0-5.0 BODY FLUID CULTURE + GRAM [id number] 10:35:00 Test Item Value Reference Range Comments CULTURE (BEAKER) (test No growth safd=2195) GRAM STAIN RESULT (BEAKER) 3+ WBCs (test hdza=7233) GRAM STAIN RESULT (BEAKER) <1+ gram positive cocci in (test veez=016188) chains and pairs ANTITHROMBIN [id number] 09:51:00 Test Item Value Reference Range Comments ANTITHROMBIN III ACTIVITY (BEAKER) (test kdic=503) 50.0 % 80.0-120.0 RAD, CHEST, 1 VIEW, NON [id number] 09:28:00Reason for exam:->ETT/ ECMOShould this be performed [...] MDReport Verified Date/Time: 01/01/2018 09:28:52 Reading Location: [address] Transitional Reading Room 09: 28 AMBLOOD GAS, [id number] 09:07:00 Test Item Value Reference Range Comments PH ARTERIAL (BEAKER) (test ccsk=212) 7.41 7.35-7.45 PCO2 ARTERIAL (BEAKER) (test umxa=080) 41 mmHg 35-45 PO2 ARTERIAL (BEAKER) (test bitq=791) 147 mmHg 80-90 O2 SATURATION ARTERIAL (BEAKER) (test dccz=868) 98.9 % 96.0-97.0 HCO3 ARTERIAL (BEAKER) (test uphx=018) 26 mmol/L 21-29 BASE EXCESS ARTERIAL (BEAKER) (test whtx=705) 1.1 mmol/L -2.0-3.0 PATIENT TEMPERATURE (BEAKER) (test ldhm=7082) 37.0 C FIO2 (BEAKER) (test becm=1113) 100.0 % [id number] 08:37:00 Test Item Value Reference Range Comments PARTIAL THROMBOPLASTIN TIME (BEAKER) (test 63.8 seconds 22.5-36.0 xctx=318) [id number] 08:35:00 Test Item Value Reference Range Comments POTASSIUM (BEAKER) (test eenn=870) 4.9 meq/L 3.5-5.1 [id number] 08:35:00 Test Item Value Reference Range Comments MAGNESIUM (BEAKER) (test iuny=931) 2.3 mg/dL 1.6-2.6 [id number] 08:35:00 Test Item Value Reference Range Comments PHOSPHORUS (BEAKER) (test cbvx=090) 3.2 mg/dL 2.3-4.7 [id number] 08:35:00 Test Item Value Reference Range Comments SODIUM (BEAKER) (test bswq=977) 138 meq/L 136-145 CALCIUM, [id number] 08:23:00 Test Item Value Reference Range Comments CALCIUM IONIZED (BEAKER) (test gxys=706) 1.15 mmol/L 1.12-1.27 PH, BLOOD (BEAKER) (test ycwn=0699) 7.41 PH, [id number] 08:23:00 Test Item Value Reference Range Comments PH ARTERIAL (BEAKER) (test mqpu=776) 7.41 7.35-7.45 HEPARIN ASSAY - [id number] 07:24:00 Test Item Value Reference Range Comments UNFRACTIONATED HEPARIN-ANTI 10A (BEAKER) (test 0.10 u/ml 0.30-0.70 cght=8056) Recommendations for Monitoring Unfractionated Heparin Therapeutic Range: 0.3- 0.7 u/mL with continuous IV infusionCBC W/PLT COUNT & AUTO [id number] 06:50:00 Test Item Value Reference Range Comments WHITE BLOOD CELL COUNT (BEAKER) (test dxki=782) 30.2 K/ L 3.5-10.5 RED BLOOD CELL COUNT (BEAKER) (test raer=234) 2.56 M/ L 3.93-5.22 HEMOGLOBIN (BEAKER) (test rfma=891) 7.7 GM/DL 11.2-15.7 HEMATOCRIT (BEAKER) (test cudx=423) 23.1 % 34.1-44.9 MEAN CORPUSCULAR VOLUME (BEAKER) (test dnsg=848) 90.2 fL 79.4-94.8 MEAN CORPUSCULAR HEMOGLOBIN (BEAKER) (test 30.1 pg 25.6-32.2 nhov=196) MEAN CORPUSCULAR HEMOGLOBIN CONC (BEAKER) (test 33.3 GM/DL 32.2-35.5 gsbr=403) RED CELL DISTRIBUTION WIDTH (BEAKER) (test 17.0 % 11.7-14.4 qemw=412) PLATELET COUNT (BEAKER) (test vchc=780) 55 K/CU MM 150-450 MEAN PLATELET VOLUME (BEAKER) (test krzd=844) 11.8 fL 9.4-12.3 NUCLEATED RED BLOOD CELLS (BEAKER) (test 0 /100 WBC 0-0 udwx=711) (CELLAVISION MANUAL DIFF)2018-01-01 06:50:00 Test Item Value Reference Range Comments NEUTROPHILS - REL (CELLAVISION)(BEAKER) (test 44 % borh=6294) LYMPHOCYTES - REL (CELLAVISION)(BEAKER) (test 8 % ptrg=1878) MONOCYTES - REL (CELLAVISION)(BEAKER) (test 3 % piri=5420) METAMYELOCYTES - REL (CELLAVISION)(BEAKER) (test 7 % 0-0 nwrt=2089) MYELOCYTES - REL (CELLAVISION)(BEAKER) (test 3 % 0-0 mxgg=5131) PROMYELOCYTES - REL (CELLAVSION)(BEAKER) (test 11 % 0-0 wmbr=1718) BANDS - REL (CELLAVISION)(BEAKER) (test 24 % 0-10 qfpt=8936) NEUTROPHILS - ABS (CELLAVISION)(BEAKER) (test 13.29 K/ul 1.56-6.13 wqff=2701) LYMPHOCYTES - ABS (CELLAVISION)(BEAKER) (test 2.42 K/ul 1.18-3.74 swnu=9961) MONOCYTES - ABS (CELLAVISION)(BEAKER) (test 0.91 K/uL 0.24-0.36 bgrh=4052) METAMYELOCYTES - ABS (CELLAVISION)(BEAKER) (test 2.11 K/uL 0.00-0.00 pmhl=5402) MYELOCYTES-ABS (CELLAVISION)(BEAKER) (test 0.91 K/uL 0.00-0.00 jnfl=9767) PROMYELOCYTES - ABS (CELLAVISION)(BEAKER) (test 3.32 K/uL 0.00-0.00 zkqc=8936) BANDS - ABS (CELLAVISION)(BEAKER) (test 7.25 K/uL 0.00-0.80 thqg=7184) TOTAL COUNTED (BEAKER) (test xpad=4330) 100 RBC MORPHOLOGY (BEAKER) (test rilt=999) Normal WBC MORPHOLOGY (BEAKER) (test uovk=781) Normal GIANT PLATELETS (BEAKER) (test rben=556) Present PLATELET CONCENTRATION (CELLAVISION)(BEAKER) Decreased (test revh=6887) Received comment: User comments: Slide comments:BLOOD GAS, [id number] 06 :11:00 Test Item Value Reference Range Comments PH ARTERIAL (BEAKER) (test trgz=081) 7.47 7.35-7.45 PCO2 ARTERIAL (BEAKER) (test xcpi=974) 34 mmHg 35-45 PO2 ARTERIAL (BEAKER) (test wzmx=865) 470 mmHg 80-90 O2 SATURATION ARTERIAL (BEAKER) (test smie=029) 99.9 % 96.0-97.0 HCO3 ARTERIAL (BEAKER) (test xleh=380) 24 mmol/L 21-29 BASE EXCESS ARTERIAL (BEAKER) (test kzwf=639) 0.4 mmol/L -2.0-3.0 PATIENT TEMPERATURE (BEAKER) (test edss=8185) 36.1 C FIO2 (BEAKER) (test avhr=5737) 100.0 % BASIC METABOLIC [id number] 03:13:00 Test Item Value Reference Range Comments SODIUM (BEAKER) (test 139 meq/L 136-145 ueta=689) POTASSIUM (BEAKER) (test 5.4 meq/L 3.5-5.1 nugk=943) CHLORIDE (BEAKER) (test 105 meq/L 98-107 yioj=609) CO2 (BEAKER) (test 23 meq/L 22-29 atvp=574) BLOOD UREA NITROGEN 25 mg/dL 7-21 (BEAKER) (test wrhd=739) CREATININE (BEAKER) (test 1.47 mg/dL 0.57-1.25 voha=340) GLUCOSE RANDOM (BEAKER) 137 mg/dL 70-105 (test expf=438) CALCIUM (BEAKER) (test 8.6 mg/dL 8.4-10.2 bzoy=295) EGFR (BEAKER) (test mL/min/1.73 sq m INSUFFICIENT CLINICAL DATA mkvn=3142) TO CALCULATE ESTIMATED GFR. [id number] 03:12:00 Test Item Value Reference Range Comments POTASSIUM (BEAKER) (test gfhz=285) 5.4 meq/L 3.5-5.1 [id number] 03:12:00 Test Item Value Reference Range Comments MAGNESIUM (BEAKER) (test tqhl=114) 1.9 mg/dL 1.6-2.6 [id number] 03:12:00 Test Item Value Reference Range Comments PHOSPHORUS (BEAKER) (test nuqi=231) 3.7 mg/dL 2.3-4.7 HEPATIC FUNCTION [id number] 03:12:00 Test Item Value Reference Range Comments TOTAL PROTEIN (BEAKER) (test dbyb=595) 4.8 gm/dL 6.0-8.3 ALBUMIN (BEAKER) (test ebog=1437) 2.3 g/dL 3.5-5.0 BILIRUBIN TOTAL (BEAKER) (test mnll=403) 0.6 mg/dL 0.2-1.2 BILIRUBIN DIRECT (BEAKER) (test tajr=631) 0.5 mg/dL 0.1-0.5 ALKALINE PHOSPHATASE (BEAKER) (test afyt=555) 64 U/L 40-150 AST (SGOT) (BEAKER) (test vwax=248) 38 U/L 5-34 ALT (SGPT) (BEAKER) (test raiq=105) 23 U/L 6-55 LACTATE DEHYDROGENASE (LDH)2018-01-01 03:12:00 Test Item Value Reference Range Comments LACTATE DEHYDROGENASE (BEAKER) (test khru=309) 520 U/L 125-220 LACTIC ACID, ARTERIAL, WHOLE [id number] 03:07:00 Test Item Value Reference Range Comments LACTATE BLOOD ARTERIAL (2) (BEAKER) (test 1.0 mmol/L 0.5-2.2 hewu=2295) Effective 11/12/2015: Units/Reference Range ChangeNew: 0.5-2.2 mmol/L Previous: 5 -20 mg/[id number] 03:06:00 Test Item Value Reference Range Comments D-DIMER QUANTITATIVE (BEAKER) (test ydcp=079) 1.58 MG/L FEU <0.50 Intended Use: The [...] exclusion of thrombosis is within 95-100% range.PROTHROMBIN TIME/[id number] 03:04:00 Test Item Value Reference Range Comments PROTIME (BEAKER) (test lwmc=225) 16.3 seconds 11.7-14.7 INR (BEAKER) (test vcjq=784) 1.3 <=5.9 RECOMMENDED COUMADIN/WARFARIN INR THERAPY RANGESSTANDARD DOSE: 2.0 - 3.0 Includes: PROPHYLAXIS forvenous thrombosis, systemic embolization; TREATMENT for venous thrombosis and/or pulmonary embolus.HIGH RISK: Target INR is 2.5-3.5 for patients with mechanical heart valves.[id number] 03:04:00 Test Item Value Reference Range Comments PARTIAL THROMBOPLASTIN TIME (BEAKER) (test 63.2 seconds 22.5-36.0 zohu=898) BLOOD GAS, [id number] 02:59:00 Test Item Value Reference Range Comments PH ARTERIAL (BEAKER) (test qmjb=491) 7.43 7.35-7.45 PCO2 ARTERIAL (BEAKER) (test fbbf=742) 39 mmHg 35-45 PO2 ARTERIAL (BEAKER) (test lwxm=944) 143 mmHg 80-90 O2 SATURATION ARTERIAL (BEAKER) (test yuxb=923) 98.9 % 96.0-97.0 HCO3 ARTERIAL (BEAKER) (test fzik=387) 26 mmol/L 21-29 BASE EXCESS ARTERIAL (BEAKER) (test kduw=247) 1.1 mmol/L -2.0-3.0 PATIENT TEMPERATURE (BEAKER) (test wfbz=5771) 36.3 C FIO2 (BEAKER) (test kjvu=9040) 50.0 % OXYGEN SATURATION, [id number] 02:59:00 Test Item Value Reference Range Comments O2 SATURATION (MEASURED) (BEAKER) (test hyyz=7863) 84.4 % CALCIUM, [id number] 02:59:00 Test Item Value Reference Range Comments CALCIUM IONIZED (BEAKER) (test msut=905) 1.15 mmol/L 1.12-1.27 PH, BLOOD (BEAKER) (test kpzy=5287) 7.42 [id number] 20:16:00 Test Item Value Reference Range Comments POTASSIUM (BEAKER) (test tkfe=289) 5.4 meq/L 3.5-5.1 [id number] 20:16:00 Test Item Value Reference Range Comments MAGNESIUM (BEAKER) (test qbbp=248) 1.9 mg/dL 1.6-2.6 [id number] 20:16:00 Test Item Value Reference Range Comments PHOSPHORUS (BEAKER) (test mkfe=259) 3.6 mg/dL 2.3-4.7 [id number] 20:16:00 Test Item Value Reference Range Comments SODIUM (BEAKER) (test ceuk=465) 138 meq/L 136-145 BLOOD GAS, [id number] 19:52:00 Test Item Value Reference Range Comments PH ARTERIAL (BEAKER) (test uvdm=398) 7.41 7.35-7.45 PCO2 ARTERIAL (BEAKER) (test joya=933) 39 mmHg 35-45 PO2 ARTERIAL (BEAKER) (test zyfp=132) 154 mmHg 80-90 O2 SATURATION ARTERIAL (BEAKER) (test qjsz=373) 99.0 % 96.0-97.0 HCO3 ARTERIAL (BEAKER) (test ljmp=351) 25 mmol/L 21-29 BASE EXCESS ARTERIAL (BEAKER) (test benm=843) -0.2 mmol/L -2.0-3.0 PATIENT TEMPERATURE (BEAKER) (test tdez=9131) 36.2 C FIO2 (BEAKER) (test fmds=2430) 100.0 % PH, [id number] 19:51:00 Test Item Value Reference Range Comments PH ARTERIAL (BEAKER) (test ugvf=886) 7.41 7.35-7.45 SODIUM NA-STAT [id number] 19:51:00 Test Item Value Reference Range Comments SODIUM (BEAKER) (test ofhu=828) 135 meq/L 135-148 THROMBOELASTOGRAPH (TEG)2017-12-31 18:32:00 Test Item Value Reference Range Comments TEG ACTIVATED CLOTTING TIME (BEAKER) (test 40.0 minutes 4.0-7.0 dtzg=3897) TEG FIBRINOGEN ACTIVITY (BEAKER) (test 7.8 degrees 61.0-73.0 gkui=5669) TEG PLT. AGGREGATION (BEAKER) (test ugpp=5399) 21.6 MM 55.0-65.0 TEG FIBRINOLYSIS (BEAKER) (test mmbp=7936) 0.0 % 0.0-5.0 TGH ACTIVATED CLOTTING TIME (BEAKER) (test 9.8 minutes 4.0-7.0 gbic=9240) TGH FIBRINOGEN ACTIVITY (BEAKER) (test 62.5 degrees 61.0-73.0 tdno=3141) TGH PLT. AGGREGATION (BEAKER) (test lofe=5795) 65.1 MM 55.0-65.0 TGH FIBRINOLYSIS (BEAKER) (test nggr=2847) 0.0 % 0.0-5.0 [id number] 17:02:00 Test Item Value Reference Range Comments PARTIAL THROMBOPLASTIN TIME (BEAKER) (test 66.8 seconds 22.5-36.0 yjvs=526) [id number] 16:50:00 Test Item Value Reference Range Comments POTASSIUM (BEAKER) (test zkqh=703) 5.4 meq/L 3.5-5.1 CALCIUM, [id number] 16:39:00 Test Item Value Reference Range Comments CALCIUM IONIZED (BEAKER) (test pyye=384) 1.16 mmol/L 1.12-1.27 PH, BLOOD (BEAKER) (test rtrt=8794) 7.44 BLOOD GAS, [id number] 16:38:00 Test Item Value Reference Range Comments PH ARTERIAL (BEAKER) (test hove=592) 7.44 7.35-7.45 PCO2 ARTERIAL (BEAKER) (test bwvs=670) 37 mmHg 35-45 PO2 ARTERIAL (BEAKER) (test zqct=407) 179 mmHg 80-90 O2 SATURATION ARTERIAL (BEAKER) (test srgg=509) 99.3 % 96.0-97.0 HCO3 ARTERIAL (BEAKER) (test ljfg=222) 24 mmol/L 21-29 BASE EXCESS ARTERIAL (BEAKER) (test hnpa=703) 0.0 mmol/L -2.0-3.0 PATIENT TEMPERATURE (BEAKER) (test hkxj=7358) 36.7 C FIO2 (BEAKER) (test cepi=4974) 50.0 % [id number] 13:22:00 Test Item Value Reference Range Comments POTASSIUM (BEAKER) (test kmvp=679) 5.5 meq/L 3.5-5.1 BLOOD GAS, [id number] 12:57:00 Test Item Value Reference Range Comments PH ARTERIAL (BEAKER) (test ptsa=962) 7.47 7.35-7.45 PCO2 ARTERIAL (BEAKER) (test amwd=895) 37 mmHg 35-45 PO2 ARTERIAL (BEAKER) (test fqyr=441) 116 mmHg 80-90 O2 SATURATION ARTERIAL (BEAKER) (test gqbi=864) 98.5 % 96.0-97.0 HCO3 ARTERIAL (BEAKER) (test osjl=796) 26 mmol/L 21-29 BASE EXCESS ARTERIAL (BEAKER) (test dmuu=331) 2.4 mmol/L -2.0-3.0 PATIENT TEMPERATURE (BEAKER) (test dhll=1246) 36.7 C FIO2 (BEAKER) (test ashp=4310) 50.0 % RAD, ABDOMEN/KUB, 1 VIEW [id number] 11:28:00Reason for exam:->Corpak placementFINAL REPORT ONE VIEW ABDOMEN HISTORY: Corpak feeding tube placement COMPARISON: 12/28/2017 FINDINGS: Single supine AP image of the abdomen was obtained. A feeding tube is present, with its tip in the region of the midportion of the gastric body. No dilated bowel loops are identified. Atelectatic changes are noted at the lung bases. Signed: Rhea Shahid MDReport Verified Date/Time: 12/31/2017 11:28:03 Reading Location: [address] Transitional Reading Room BLOOD GAS, [id number] 11:02:00 Test Item Value Reference Range Comments PH ARTERIAL (BEAKER) (test cimo=683) 7.48 7.35-7.45 PCO2 ARTERIAL (BEAKER) (test bdpp=853) 37 mmHg 35-45 PO2 ARTERIAL (BEAKER) (test vvyl=540) 165 mmHg 80-90 O2 SATURATION ARTERIAL (BEAKER) (test lrrv=151) 99.2 % 96.0-97.0 HCO3 ARTERIAL (BEAKER) (test kuug=581) 27 mmol/L 21-29 BASE EXCESS ARTERIAL (BEAKER) (test iyhx=366) 2.9 mmol/L -2.0-3.0 PATIENT TEMPERATURE (BEAKER) (test prah=8581) 36.2 C FIO2 (BEAKER) (test krnf=3906) 50.0 % THROMBOELASTOGRAPH (TEG)2017-12-31 10:34:00 Test Item Value Reference Range Comments TEG ACTIVATED CLOTTING TIME (BEAKER) (test 37.1 minutes 4.0-7.0 skbq=8541) TEG FIBRINOGEN ACTIVITY (BEAKER) (test 8.8 degrees 61.0-73.0 oszn=3025) TEG PLT. AGGREGATION (BEAKER) (test wkls=7120) 24.0 MM 55.0-65.0 TEG FIBRINOLYSIS (BEAKER) (test apnf=7182) 0.0 % 0.0-5.0 TGH ACTIVATED CLOTTING TIME (BEAKER) (test 9.1 minutes 4.0-7.0 bpry=0685) TGH FIBRINOGEN ACTIVITY (BEAKER) (test 60.8 degrees 61.0-73.0 tsjh=9499) TGH PLT. AGGREGATION (BEAKER) (test plae=6628) 55.0 MM 55.0-65.0 TGH FIBRINOLYSIS (BEAKER) (test afzp=9204) 0.0 % 0.0-5.0 ANTITHROMBIN [id number] 09:49:00 Test Item Value Reference Range Comments ANTITHROMBIN III ACTIVITY (BEAKER) (test aqdy=271) 65.0 % 80.0-120.0 BLOOD [id number] 09:16:00 Test Item Value Reference Range Comments CULTURE (BEAKER) From Aerobic And Anaerobic (test zojw=2978) Bottles Coagulase negative Staphylococcus GRAM STAIN RESULT From aerobic and (BEAKER) (test anaerobic bottles: hess=6523) gram positive cocci in clusters Coagulase Negative Staphylococcus Species (CoNS) DETECTED, Methicillin Susceptible First line therapy: cefazolin, nafcillin (nafcillin preferred for Central Nervous System infection) Coagulase Negative Staphylococcus (CoNS) DETECTEDmecA NOT DETECTEDOther organisms and resistance markers not containedin this PCR panel cannot be excluded and follow-up of traditional culture results is required. This sample was tested at the [facility] using the [employer] Blood Culture ID Panel. This test is FDA cleared for in vitro diagnostic use and has been verified and approved by the [facility] for clinical use. Reference Range: Not DetectedCBC W/PLT COUNT & AUTO [id number] 09:06:00 Test Item Value Reference Range Comments WHITE BLOOD CELL COUNT (BEAKER) (test aadk=316) 34.3 K/ L 3.5-10.5 RED BLOOD CELL COUNT (BEAKER) (test lqrr=268) 2.73 M/ L 3.93-5.22 HEMOGLOBIN (BEAKER) (test obfy=923) 8.3 GM/DL 11.2-15.7 HEMATOCRIT (BEAKER) (test thra=894) 24.5 % 34.1-44.9 MEAN CORPUSCULAR VOLUME (BEAKER) (test irxp=222) 89.7 fL 79.4-94.8 MEAN CORPUSCULAR HEMOGLOBIN (BEAKER) (test 30.4 pg 25.6-32.2 oacx=303) MEAN CORPUSCULAR HEMOGLOBIN CONC (BEAKER) (test 33.9 GM/DL 32.2-35.5 shsp=609) RED CELL DISTRIBUTION WIDTH (BEAKER) (test 16.4 % 11.7-14.4 ptsn=064) PLATELET COUNT (BEAKER) (test cqow=627) 46 K/CU MM 150-450 MEAN PLATELET VOLUME (BEAKER) (test mndr=307) 11.4 fL 9.4-12.3 NUCLEATED RED BLOOD CELLS (BEAKER) (test 0 /100 WBC 0-0 mbpi=406) [id number] 09:02:00 Test Item Value Reference Range Comments POTASSIUM (BEAKER) (test eoie=387) 5.5 meq/L 3.5-5.1 [id number] 09:02:00 Test Item Value Reference Range Comments MAGNESIUM (BEAKER) (test hiim=627) 2.3 mg/dL 1.6-2.6 [id number] 09:02:00 Test Item Value Reference Range Comments PHOSPHORUS (BEAKER) (test acxy=341) 3.7 mg/dL 2.3-4.7 [id number] 09:02:00 Test Item Value Reference Range Comments SODIUM (BEAKER) (test qgju=604) 139 meq/L 136-145 [id number] 09:00:00 Test Item Value Reference Range Comments PARTIAL THROMBOPLASTIN TIME (BEAKER) (test 66.9 seconds 22.5-36.0 rgxx=811) CBC W/PLT COUNT & AUTO [id number] 08:54:00 Test Item Value Reference Range Comments WHITE BLOOD CELL COUNT (BEAKER) (test hlcu=050) 29.7 K/ L 3.5-10.5 RED BLOOD CELL COUNT (BEAKER) (test ztmp=904) 2.44 M/ L 3.93-5.22 HEMOGLOBIN (BEAKER) (test wfro=955) 7.3 GM/DL 11.2-15.7 HEMATOCRIT (BEAKER) (test iiev=348) 22.0 % 34.1-44.9 MEAN CORPUSCULAR VOLUME (BEAKER) (test rpjh=505) 90.2 fL 79.4-94.8 MEAN CORPUSCULAR HEMOGLOBIN (BEAKER) (test 29.9 pg 25.6-32.2 hqdb=567) MEAN CORPUSCULAR HEMOGLOBIN CONC (BEAKER) (test 33.2 GM/DL 32.2-35.5 pyym=093) RED CELL DISTRIBUTION WIDTH (BEAKER) (test 16.8 % 11.7-14.4 sfpe=913) PLATELET COUNT (BEAKER) (test oggv=754) 43 K/CU MM 150-450 MEAN PLATELET VOLUME (BEAKER) (test pkpu=325) 11.4 fL 9.4-12.3 NUCLEATED RED BLOOD CELLS (BEAKER) (test 0 /100 WBC 0-0 znno=155) (CELLAVISION MANUAL DIFF)2017-12-31 08:54:00 Test Item Value Reference Range Comments NEUTROPHILS - REL (CELLAVISION)(BEAKER) (test 69 % ktox=2203) LYMPHOCYTES - REL (CELLAVISION)(BEAKER) (test 5 % rqtg=8601) MONOCYTES - REL (CELLAVISION)(BEAKER) (test 5 % rzyz=6460) MYELOCYTES - REL (CELLAVISION)(BEAKER) (test 2 % 0-0 jhya=4847) PROMYELOCYTES - REL (CELLAVSION)(BEAKER) (test 12 % 0-0 eddq=4291) BANDS - REL (CELLAVISION)(BEAKER) (test 7 % 0-10 aeaq=4014) NEUTROPHILS - ABS (CELLAVISION)(BEAKER) (test 20.49 K/ul 1.56-6.13 xfii=4455) LYMPHOCYTES - ABS (CELLAVISION)(BEAKER) (test 1.49 K/ul 1.18-3.74 hztc=0343) MONOCYTES - ABS (CELLAVISION)(BEAKER) (test 1.49 K/uL 0.24-0.36 enro=1619) MYELOCYTES-ABS (CELLAVISION)(BEAKER) (test 0.59 K/uL 0.00-0.00 uyjt=4196) PROMYELOCYTES - ABS (CELLAVISION)(BEAKER) (test 3.56 K/uL 0.00-0.00 gsyt=3796) BANDS - ABS (CELLAVISION)(BEAKER) (test 2.08 K/uL 0.00-0.80 zmyp=6932) TOTAL COUNTED (BEAKER) (test hwne=3259) 100 WBC MORPHOLOGY (BEAKER) (test bonj=860) Normal PLT MORPHOLOGY (BEAKER) (test piyv=631) Normal ANISOCYTOSIS (BEAKER) (test mvta=403) 1+ few MICROCYTES (BEAKER) (test kopd=916) 1+ few ARTIFACT (CELLAVISION)(BEAKER) (test aohm=6215) Present PLATELET CONCENTRATION (CELLAVISION)(BEAKER) Decreased (test wasj=9359) Received comment: User comments: Slide comments:BLOOD GAS, [id number] 08 :36:00 Test Item Value Reference Range Comments PH ARTERIAL (BEAKER) (test qsah=506) 7.48 7.35-7.45 PCO2 ARTERIAL (BEAKER) (test rsyi=204) 35 mmHg 35-45 PO2 ARTERIAL (BEAKER) (test iygi=865) 149 mmHg 80-90 O2 SATURATION ARTERIAL (BEAKER) (test lyjd=348) 99.1 % 96.0-97.0 HCO3 ARTERIAL (BEAKER) (test lsdi=822) 25 mmol/L 21-29 BASE EXCESS ARTERIAL (BEAKER) (test ekkp=525) 1.4 mmol/L -2.0-3.0 PATIENT TEMPERATURE (BEAKER) (test kdhy=3508) 36.6 C FIO2 (BEAKER) (test eoio=8952) 50.0 % CALCIUM, [id number] 08:32:00 Test Item Value Reference Range Comments CALCIUM IONIZED (BEAKER) (test fdha=966) 1.16 mmol/L 1.12-1.27 PH, BLOOD (BEAKER) (test wjzs=4683) 7.45 HEPARIN ASSAY - [id number] 08:10:00 Test Item Value Reference Range Comments UNFRACTIONATED HEPARIN-ANTI 10A (BEAKER) (test 0.16 u/ml 0.30-0.70 jxcu=0326) Recommendations for Monitoring Unfractionated Heparin Therapeutic Range: 0.3- 0.7 u/mL with continuous IV infusionRAD, CHEST, 1 VIEW, NON [id number] 07:20 :00Reason for exam:->pneumonia ecmoShould this be [...] or large pleural effusion. Signed: Shashank Foster [facility] Verified Date/Time : 12/31/2017 07:20:57 Reading Location: [facility] B1 C013X Ortho Consult Reading Room 07: 20 AMTHROMBOELASTOGRAPH (TEG)2017-12-31 06:37:00 Test Item Value Reference Range Comments TEG ACTIVATED CLOTTING TIME (BEAKER) (test 44.0 minutes 4.0-7.0 hgwz=6836) TEG FIBRINOGEN ACTIVITY (BEAKER) (test 6.2 degrees 61.0-73.0 xyeg=8827) TEG PLT. AGGREGATION (BEAKER) (test muoz=5572) 10.4 MM 55.0-65.0 TEG FIBRINOLYSIS (BEAKER) (test vcqg=5257) 0.0 % 0.0-5.0 TGH ACTIVATED CLOTTING TIME (BEAKER) (test 10.8 minutes 4.0-7.0 apdw=4479) TGH FIBRINOGEN ACTIVITY (BEAKER) (test 54.9 degrees 61.0-73.0 zjqx=0077) TGH PLT. AGGREGATION (BEAKER) (test sqqd=2994) 61.4 MM 55.0-65.0 TGH FIBRINOLYSIS (BEAKER) (test bhgu=1553) 0.0 % 0.0-5.0 BLOOD GAS, [id number] 06:23:00 Test Item Value Reference Range Comments PH ARTERIAL (BEAKER) (test ajrf=840) 7.39 7.35-7.45 PCO2 ARTERIAL (BEAKER) (test fech=475) 43 mmHg 35-45 PO2 ARTERIAL (BEAKER) (test mocc=104) 334 mmHg 80-90 O2 SATURATION ARTERIAL (BEAKER) (test qqrd=183) 99.7 % 96.0-97.0 HCO3 ARTERIAL (BEAKER) (test wbqe=787) 26 mmol/L 21-29 BASE EXCESS ARTERIAL (BEAKER) (test dxrs=269) 0.4 mmol/L -2.0-3.0 PATIENT TEMPERATURE (BEAKER) (test xdfh=8159) 36.2 C FIO2 (BEAKER) (test bjpc=9608) 100.0 % POCT-GLUCOSE [id number] 06:15:00 Test Item Value Reference Range Comments POC-GLUCOSE METER (BEAKER) 116 mg/dL 70-110 TESTED AT [address] (test fhey=6679) [facility] [address] POCT-GLUCOSE [id number] 06:15:00 Test Item Value Reference Range Comments POC-GLUCOSE METER (BEAKER) 127 mg/dL 70-110 TESTED AT [address] (test hsjo=6670) [facility] [address] POCT-GLUCOSE [id number] 06:15:00 Test Item Value Reference Range Comments POC-GLUCOSE METER (BEAKER) 130 mg/dL 70-110 TESTED AT [address] (test otbj=6548) [facility] [address] POCT-GLUCOSE [id number] 06:15:00 Test Item Value Reference Range Comments POC-GLUCOSE METER (BEAKER) 141 mg/dL 70-[address] [facility] [address] [facility] (test ohex=4742) [facility] [address] BASIC METABOLIC [id number] 05:36:00 Test Item Value Reference Range Comments SODIUM (BEAKER) (test 138 meq/L 136-145 rhcw=701) POTASSIUM (BEAKER) (test 5.1 meq/L 3.5-5.1 vpzm=389) CHLORIDE (BEAKER) (test 105 meq/L 98-107 fciw=188) CO2 (BEAKER) (test 23 meq/L 22-29 xdyc=418) BLOOD UREA NITROGEN 26 mg/dL 7-21 (BEAKER) (test qops=439) CREATININE (BEAKER) (test 1.65 mg/dL 0.57-1.25 tzxq=759) GLUCOSE RANDOM (BEAKER) 132 mg/dL 70-105 (test jaoq=535) CALCIUM (BEAKER) (test 8.7 mg/dL 8.4-10.2 xaay=256) EGFR (BEAKER) (test mL/min/1.73 sq m INSUFFICIENT CLINICAL DATA ctxd=2688) TO CALCULATE ESTIMATED GFR. [id number] 05:36:00 Test Item Value Reference Range Comments CREATININE (BEAKER) (test 1.65 mg/dL 0.57-1.25 ybml=212) EGFR (BEAKER) (test mL/min/1.73 sq m INSUFFICIENT CLINICAL DATA kbxs=8748) TO CALCULATE ESTIMATED GFR. VANCOMYCIN LEVEL, [id number] 05:27:00 Test Item Value Reference Range Comments VANCOMYCIN TROUGH (BEAKER) (test aupq=469) 24.3 ug/mL 10.0-20.0 [id number] 05:27:00 Test Item Value Reference Range Comments PHOSPHORUS (BEAKER) (test apjw=916) 4.4 mg/dL 2.3-4.7 [id number] 05:27:00 Test Item Value Reference Range Comments MAGNESIUM (BEAKER) (test gbya=267) 2.1 mg/dL 1.6-2.6 [id number] 05:27:00 Test Item Value Reference Range Comments BLOOD UREA NITROGEN (BEAKER) (test jxyb=543) 26 mg/dL 7-21 [id number] 05:27:00 Test Item Value Reference Range Comments SODIUM (BEAKER) (test nohm=517) 138 meq/L 136-145 POTASSIUM (BEAKER) (test nxrb=805) 5.1 meq/L 3.5-5.1 CHLORIDE (BEAKER) (test jdhx=049) 105 meq/L 98-107 CO2 (BEAKER) (test afmg=469) 23 meq/L 22-29 HEPATIC FUNCTION [id number] 05:27:00 Test Item Value Reference Range Comments TOTAL PROTEIN (BEAKER) (test jqnk=028) 4.5 gm/dL 6.0-8.3 ALBUMIN (BEAKER) (test xmls=8881) 2.2 g/dL 3.5-5.0 BILIRUBIN TOTAL (BEAKER) (test yian=941) 0.5 mg/dL 0.2-1.2 BILIRUBIN DIRECT (BEAKER) (test vfou=297) 0.4 mg/dL 0.1-0.5 ALKALINE PHOSPHATASE (BEAKER) (test shlx=458) 70 U/L 40-150 AST (SGOT) (BEAKER) (test nwek=883) 45 U/L 5-34 ALT (SGPT) (BEAKER) (test sfvb=685) 24 U/L 6-55 [id number] 05:27:00 Test Item Value Reference Range Comments GLUCOSE RANDOM (BEAKER) (test emxs=284) 132 mg/dL 70-105 LACTATE DEHYDROGENASE (LDH)2017-12-31 05:27:00 Test Item Value Reference Range Comments LACTATE DEHYDROGENASE (BEAKER) (test jefw=677) 540 U/L 125-220 [id number] 05:23:00 Test Item Value Reference Range Comments D-DIMER QUANTITATIVE (BEAKER) (test crpt=421) 1.75 MG/L FEU <0.50 Intended Use: The D-Dimer Assay can be used to aid in the diagnosis of Deep Vein Thrombosis (DVT) and Pulmonary Embolism Disease (PED).In patients with low pre-test probability, various studies concerning STA Liatest D-dimer test have reported that with a cutoff value of 0.50 MG/L FEU, the Negative Predictive Value (NPV) regarding the exclusion of thrombosis is within 95-100% range.[id number] 05:21:00 Test Item Value Reference Range Comments FIBRINOGEN LEVEL (BEAKER) (test tsic=423) 560 mg/dl 225-434 PROTHROMBIN [id number] 05:20:00 Test Item Value Reference Range Comments PROTIME (BEAKER) (test hyzu=838) 17.0 seconds 11.7-14.7 INR (BEAKER) (test ypic=780) 1.4 <=5.9 RECOMMENDED COUMADIN/WARFARIN INR THERAPY RANGESSTANDARD DOSE: 2.0 - 3.0 Includes: PROPHYLAXIS forvenous thrombosis, systemic embolization; TREATMENT for venous thrombosis and/or pulmonary embolus.HIGH RISK: Target INR is 2.5-3.5 for patients with mechanical heart valves.LACTIC ACID, ARTERIAL, WHOLE [id number] 05:05:00 Test Item Value Reference Range Comments LACTATE BLOOD ARTERIAL (2) (BEAKER) (test 1.0 mmol/L 0.5-2.2 huvm=2408) Effective 11/12/2015: Units/Reference Range ChangeNew: 0.5-2.2 mmol/L Previous: 5 -20 mg/dLCALCIUM, [id number] 04:53:00 Test Item Value Reference Range Comments CALCIUM IONIZED (BEAKER) (test ltny=342) 1.23 mmol/L 1.12-1.27 PH, BLOOD (BEAKER) (test llnq=7284) 7.36 BLOOD GAS, [id number] 04:53:00 Test Item Value Reference Range Comments PH ARTERIAL (BEAKER) (test tkzs=118) 7.37 7.35-7.45 PCO2 ARTERIAL (BEAKER) (test clsk=821) 47 mmHg 35-45 PO2 ARTERIAL (BEAKER) (test ieuv=320) 236 mmHg 80-90 O2 SATURATION ARTERIAL (BEAKER) (test vqtq=050) 99.5 % 96.0-97.0 HCO3 ARTERIAL (BEAKER) (test jzqe=248) 27 mmol/L 21-29 BASE EXCESS ARTERIAL (BEAKER) (test cexd=380) 1.0 mmol/L -2.0-3.0 PATIENT TEMPERATURE (BEAKER) (test guls=8576) 36.5 C FIO2 (BEAKER) (test zocw=9161) 60.0 % THROMBOELASTOGRAPH (TEG)2017-12-31 04:13:00 Test Item Value Reference Range Comments TEG ACTIVATED CLOTTING TIME (BEAKER) (test 31.3 minutes 4.0-7.0 vfvb=4405) TEG FIBRINOGEN ACTIVITY (BEAKER) (test 11.3 degrees 61.0-73.0 mioj=4438) TEG PLT. AGGREGATION (BEAKER) (test zqph=1282) 47.6 MM 55.0-65.0 TEG FIBRINOLYSIS (BEAKER) (test ovnq=1387) 0.0 % 0.0-5.0 TGH ACTIVATED CLOTTING TIME (BEAKER) (test 10.9 minutes 4.0-7.0 oatn=1771) TGH FIBRINOGEN ACTIVITY (BEAKER) (test 55.0 degrees 61.0-73.0 wven=2602) TGH PLT. AGGREGATION (BEAKER) (test oqfy=5481) 52.8 MM 55.0-65.0 TGH FIBRINOLYSIS (BEAKER) (test hwii=4394) 0.0 % 0.0-5.0 [id number] 01:38:00 Test Item Value Reference Range Comments POTASSIUM (BEAKER) (test dgcr=707) 5.0 meq/L 3.5-5.1 [id number] 01:37:00 Test Item Value Reference Range Comments PROTIME (BEAKER) (test nvty=139) 16.2 seconds 11.7-14.7 INR (BEAKER) (test zddr=305) 1.3 <=5.9 PARTIAL THROMBOPLASTIN TIME (BEAKER) (test 48.3 seconds 22.5-36.0 ivho=070) RECOMMENDED COUMADIN/WARFARIN INR THERAPY RANGESSTANDARD DOSE: 2.0 - 3.0 Includes: PROPHYLAXIS forvenous thrombosis, systemic embolization; TREATMENT for venous thrombosis and/or pulmonary embolus.HIGH RISK: Target INR is 2.5-3.5 for patients with mechanical heart valves.BLOOD GAS, [id number] 01:25:00 Test Item Value Reference Range Comments PH ARTERIAL (BEAKER) (test teev=616) 7.43 7.35-7.45 PCO2 ARTERIAL (BEAKER) (test oeej=933) 38 mmHg 35-45 PO2 ARTERIAL (BEAKER) (test ikkk=837) 225 mmHg 80-90 O2 SATURATION ARTERIAL (BEAKER) (test xmlx=606) 99.5 % 96.0-97.0 HCO3 ARTERIAL (BEAKER) (test bzzi=668) 24 mmol/L 21-29 BASE EXCESS ARTERIAL (BEAKER) (test csar=214) -0.2 mmol/L -2.0-3.0 PATIENT TEMPERATURE (BEAKER) (test xhpn=6128) 37.0 C FIO2 (BEAKER) (test kizm=6939) 60.0 % CALCIUM, [id number] 01:25:00 Test Item Value Reference Range Comments CALCIUM IONIZED (BEAKER) (test hzdu=180) 1.09 mmol/L 1.12-1.27 PH, BLOOD (BEAKER) (test vpob=5759) 7.43 POCT-GLUCOSE [id number] 22:39:00 Test Item Value Reference Range Comments POC-GLUCOSE METER (BEAKER) 119 mg/dL 70-110 TESTED AT [address] (test zypu=1150) [facility] [address] POCT-GLUCOSE [id number] 22:39:00 Test Item Value Reference Range Comments POC-GLUCOSE METER (BEAKER) 121 mg/dL 70-110 TESTED AT [address] (test ikwi=3014) [facility] [address] POCT-GLUCOSE [id number] 22:39:00 Test Item Value Reference Range Comments POC-GLUCOSE METER (BEAKER) 139 mg/dL 70-110 TESTED AT [address] (test twju=7465) [facility] [address] POCT-GLUCOSE [id number] 22:39:00 Test Item Value Reference Range Comments POC-GLUCOSE METER (BEAKER) 104 mg/dL 70-110 TESTED AT [address] (test jexc=0526) [facility] [address] POCT-GLUCOSE [id number] 22:39:00 Test Item Value Reference Range Comments POC-GLUCOSE METER (BEAKER) 87 mg/dL 70-110 TESTED AT [address] (test brhk=4898) [facility] [address] POCT-GLUCOSE [id number] 22:39:00 Test Item Value Reference Range Comments POC-GLUCOSE METER (BEAKER) 107 mg/dL 70-110 TESTED AT [address] (test cfgo=4911) [facility] [address] POCT-GLUCOSE [id number] 22:39:00 Test Item Value Reference Range Comments POC-GLUCOSE METER (BEAKER) 118 mg/dL 70-110 TESTED AT [address] (test cton=6319) [facility] [address] POCT-GLUCOSE [id number] 22:39:00 Test Item Value Reference Range Comments POC-GLUCOSE METER (BEAKER) 135 mg/dL 70-110 TESTED AT [address] (test dnfv=8233) [facility] [address] POCT-GLUCOSE [id number] 22:39:00 Test Item Value Reference Range Comments POC-GLUCOSE METER (BEAKER) 137 mg/dL 70-110 TESTED AT [address] (test slxk=3787) [facility] [address] POCT-GLUCOSE [id number] 22:39:00 Test Item Value Reference Range Comments POC-GLUCOSE METER (BEAKER) 132 mg/dL 70-110 TESTED AT [address] (test paoq=9470) [facility] [address] POCT-GLUCOSE [id number] 22:39:00 Test Item Value Reference Range Comments POC-GLUCOSE METER (BEAKER) 154 mg/dL 70-110 TESTED AT [address] (test hyra=0451) [facility] [address] POCT-GLUCOSE [id number] 22:39:00 Test Item Value Reference Range Comments POC-GLUCOSE METER (BEAKER) 153 mg/dL 70-110 TESTED AT [address] (test vemh=3080) [facility] [address] POCT-GLUCOSE [id number] 22:39:00 Test Item Value Reference Range Comments POC-GLUCOSE METER (BEAKER) 135 mg/dL 70-110 TESTED AT [address] (test myxq=4628) [facility] [address] POCT-GLUCOSE [id number] 22:39:00 Test Item Value Reference Range Comments POC-GLUCOSE METER (BEAKER) 142 mg/dL 70-110 TESTED AT [address] (test pyvk=7259) [facility] [address] POCT-GLUCOSE [id number] 22:39:00 Test Item Value Reference Range Comments POC-GLUCOSE METER (BEAKER) 138 mg/dL 70-[address] [facility] [address] (test vedr=3345) [place] [address] [id number] 20:50:00 Test Item Value Reference Range Comments POTASSIUM (BEAKER) (test gcif=925) 4.8 meq/L 3.5-5.1 [id number] 20:50:00 Test Item Value Reference Range Comments MAGNESIUM (BEAKER) (test gnnf=695) 2.3 mg/dL 1.6-2.6 [id number] 20:50:00 Test Item Value Reference Range Comments PHOSPHORUS (BEAKER) (test ynek=894) 3.1 mg/dL 2.3-4.7 [id number] 20:50:00 Test Item Value Reference Range Comments SODIUM (BEAKER) (test befv=964) 139 meq/L 136-145 BLOOD GAS, [id number] 20:31:00 Test Item Value Reference Range Comments PH ARTERIAL (BEAKER) (test rpyx=725) 7.43 7.35-7.45 PCO2 ARTERIAL (BEAKER) (test sgaz=238) 38 mmHg 35-45 PO2 ARTERIAL (BEAKER) (test iaqo=428) 137 mmHg 80-90 O2 SATURATION ARTERIAL (BEAKER) (test bamy=115) 98.8 % 96.0-97.0 HCO3 ARTERIAL (BEAKER) (test hacc=128) 25 mmol/L 21-29 BASE EXCESS ARTERIAL (BEAKER) (test cgpt=127) 0.7 mmol/L -2.0-3.0 PATIENT TEMPERATURE (BEAKER) (test mepd=0152) 36.7 C FIO2 (BEAKER) (test otqe=0663) 60.0 % CBC W/PLT COUNT & AUTO [id number] 18:54:00 Test Item Value Reference Range Comments WHITE BLOOD CELL COUNT (BEAKER) (test yvep=330) 43.8 K/ L 3.5-10.5 RED BLOOD CELL COUNT (BEAKER) (test yzja=521) 2.47 M/ L 3.93-5.22 HEMOGLOBIN (BEAKER) (test ksvq=171) 7.5 GM/DL 11.2-15.7 HEMATOCRIT (BEAKER) (test zxar=683) 22.1 % 34.1-44.9 MEAN CORPUSCULAR VOLUME (BEAKER) (test hpkb=964) 89.5 fL 79.4-94.8 MEAN CORPUSCULAR HEMOGLOBIN (BEAKER) (test 30.4 pg 25.6-32.2 iarj=386) MEAN CORPUSCULAR HEMOGLOBIN CONC (BEAKER) (test 33.9 GM/DL 32.2-35.5 lfvk=654) RED CELL DISTRIBUTION WIDTH (BEAKER) (test 16.8 % 11.7-14.4 vpea=738) PLATELET COUNT (BEAKER) (test ndzk=233) 73 K/CU MM 150-450 MEAN PLATELET VOLUME (BEAKER) (test glno=406) 11.3 fL 9.4-12.3 NUCLEATED RED BLOOD CELLS (BEAKER) (test 0 /100 WBC 0-0 pupq=546) NEUTROPHILS RELATIVE PERCENT (BEAKER) (test 57 % tstp=149) LYMPHOCYTES RELATIVE PERCENT (BEAKER) (test 7 % necr=805) MONOCYTES RELATIVE PERCENT (BEAKER) (test 5 % qpye=065) EOSINOPHILS RELATIVE PERCENT (BEAKER) (test 0 % jgqu=839) BASOPHILS RELATIVE PERCENT (BEAKER) (test 0 % ippg=612) NEUTROPHILS ABSOLUTE COUNT (BEAKER) (test 25.08 K/ L 1.56-6.13 zaks=226) LYMPHOCYTES ABSOLUTE COUNT (BEAKER) (test 3.03 K/ L 1.18-3.74 wfyr=345) MONOCYTES ABSOLUTE COUNT (BEAKER) (test erua=464) 2.33 K/ L 0.24-0.36 EOSINOPHILS ABSOLUTE COUNT (BEAKER) (test 0.03 K/ L 0.04-0.36 lqfd=441) BASOPHILS ABSOLUTE COUNT (BEAKER) (test rshe=868) 0.18 K/ L 0.01-0.08 IMMATURE GRANULOCYTES-RELATIVE PERCENT (BEAKER) 30 % 0-1 (test vthv=2075) BLOOD GAS, [id number] 18:44:00 Test Item Value Reference Range Comments PH ARTERIAL (BEAKER) (test qgji=267) 7.48 7.35-7.45 PCO2 ARTERIAL (BEAKER) (test xknb=983) 35 mmHg 35-45 PO2 ARTERIAL (BEAKER) (test frjh=965) 150 mmHg 80-90 O2 SATURATION ARTERIAL (BEAKER) (test upky=758) 99.1 % 96.0-97.0 HCO3 ARTERIAL (BEAKER) (test xquj=272) 26 mmol/L 21-29 BASE EXCESS ARTERIAL (BEAKER) (test tdmk=134) 2.1 mmol/L -2.0-3.0 PATIENT TEMPERATURE (BEAKER) (test zemn=4907) 36.1 C FIO2 (BEAKER) (test xzzj=7837) 60.0 % [id number] 18:37:00 Test Item Value Reference Range Comments HAPTOGLOBIN (BEAKER) (test enmi=722) 350 mg/dL 14-258 THROMBOELASTOGRAPH (TEG)2017-12-30 18:15:00 Test Item Value Reference Range Comments TEG ACTIVATED CLOTTING TIME (BEAKER) (test 16.9 minutes 4.0-7.0 jmzh=3534) TEG FIBRINOGEN ACTIVITY (BEAKER) (test 40.3 degrees 61.0-73.0 xqyn=8686) TEG PLT. AGGREGATION (BEAKER) (test bptb=8904) 60.5 MM 55.0-65.0 TEG FIBRINOLYSIS (BEAKER) (test icmu=8844) 0.5 % 0.0-5.0 TGH ACTIVATED CLOTTING TIME (BEAKER) (test 7.0 minutes 4.0-7.0 crop=5779) TGH FIBRINOGEN ACTIVITY (BEAKER) (test 65.7 degrees 61.0-73.0 yzuf=0817) TGH PLT. AGGREGATION (BEAKER) (test nzxq=9243) 61.2 MM 55.0-65.0 TGH FIBRINOLYSIS (BEAKER) (test wgng=4453) 0.0 % 0.0-5.0 RAD, CHEST, 1 VIEW, NON [id number] 18:00:00Reason for exam:->s/p emi ECMOShould this be [...] pneumothorax, or large effusion. Signed: Jacob Stoll Verified Date/Time : 12/30/2017 18:00:24 Reading Location: [facility] C013W Consult Reading Room BASIC METABOLIC [id number] 17:35:00 Test Item Value Reference Range Comments SODIUM (BEAKER) (test 140 meq/L 136-145 nvmq=884) POTASSIUM (BEAKER) (test 4.1 meq/L 3.5-5.1 qhcg=851) CHLORIDE (BEAKER) (test 105 meq/L 98-107 rhrm=871) CO2 (BEAKER) (test 26 meq/L 22-29 exoh=183) BLOOD UREA NITROGEN 28 mg/dL 7-21 (BEAKER) (test hvjk=704) CREATININE (BEAKER) (test 1.90 mg/dL 0.57-1.25 zmuy=555) GLUCOSE RANDOM (BEAKER) 89 mg/dL 70-105 (test vagx=614) CALCIUM (BEAKER) (test 8.3 mg/dL 8.4-10.2 csqp=838) EGFR (BEAKER) (test mL/min/1.73 sq m INSUFFICIENT CLINICAL DATA wnma=1705) TO CALCULATE ESTIMATED GFR. [id number] 17:29:00 Test Item Value Reference Range Comments POTASSIUM (BEAKER) (test tyyj=953) 4.1 meq/L 3.5-5.1 LACTIC ACID, ARTERIAL, WHOLE [id number] 17:27:00 Test Item Value Reference Range Comments LACTATE BLOOD ARTERIAL (2) (BEAKER) (test 1.6 mmol/L 0.5-2.2 ksdg=1377) Effective 11/12/2015: Units/Reference Range ChangeNew: 0.5-2.2 mmol/L Previous: 5 -20 mg/dLPT/[id number] 17:16:00 Test Item Value Reference Range Comments PROTIME (BEAKER) (test sddv=838) 15.9 seconds 11.7-14.7 INR (BEAKER) (test pnlr=849) 1.3 <=5.9 PARTIAL THROMBOPLASTIN TIME (BEAKER) (test 53.3 seconds 22.5-36.0 qpfv=366) RECOMMENDED COUMADIN/WARFARIN INR THERAPY RANGESSTANDARD DOSE: 2.0 - 3.0 Includes: PROPHYLAXIS forvenous thrombosis, systemic embolization; TREATMENT for venous thrombosis and/or pulmonary embolus.HIGH RISK: Target INR is 2.5-3.5 for patients with mechanical heart valves.[id number] 17:16:00 Test Item Value Reference Range Comments PARTIAL THROMBOPLASTIN TIME (BEAKER) (test 53.3 seconds 22.5-36.0 vdaa=894) PROTHROMBIN TIME/[id number] 17:14:00 Test Item Value Reference Range Comments PROTIME (BEAKER) (test sftk=225) 15.9 seconds 11.7-14.7 INR (BEAKER) (test gjmj=270) 1.3 <=5.9 RECOMMENDED COUMADIN/WARFARIN INR THERAPY RANGESSTANDARD DOSE: 2.0 - 3.0 Includes: PROPHYLAXIS forvenous thrombosis, systemic embolization; TREATMENT for venous thrombosis and/or pulmonary embolus.HIGH RISK: Target INR is 2.5-3.5 for patients with mechanical heart valves.CALCIUM, [id number] 16:54:00 Test Item Value Reference Range Comments CALCIUM IONIZED (BEAKER) (test tssp=975) 1.10 mmol/L 1.12-1.27 PH, BLOOD (BEAKER) (test zlwl=3060) 7.52 BLOOD GAS, [id number] 16:48:00 Test Item Value Reference Range Comments PH ARTERIAL (BEAKER) (test kjlz=054) 7.54 7.35-7.45 PCO2 ARTERIAL (BEAKER) (test ajkg=319) 32 mmHg 35-45 PO2 ARTERIAL (BEAKER) (test zptu=163) 211 mmHg 80-90 O2 SATURATION ARTERIAL (BEAKER) (test hgka=059) 99.6 % 96.0-97.0 HCO3 ARTERIAL (BEAKER) (test sxpm=060) 26 mmol/L 21-29 BASE EXCESS ARTERIAL (BEAKER) (test ulkt=117) 3.4 mmol/L -2.0-3.0 PATIENT TEMPERATURE (BEAKER) (test pmws=3427) 36.1 C FIO2 (BEAKER) (test ebby=5813) 90.0 % BLOOD GAS, [id number] 15:17:00 Test Item Value Reference Range Comments PH ARTERIAL (BEAKER) (test wtli=104) 7.55 7.35-7.45 PCO2 ARTERIAL (BEAKER) (test geph=260) 30 mmHg 35-45 PO2 ARTERIAL (BEAKER) (test gfsz=793) 213 mmHg 80-90 O2 SATURATION ARTERIAL (BEAKER) (test aqiv=219) 99.6 % 96.0-97.0 HCO3 ARTERIAL (BEAKER) (test awie=615) 25 mmol/L 21-29 BASE EXCESS ARTERIAL (BEAKER) (test gisd=540) 2.7 mmol/L -2.0-3.0 PATIENT TEMPERATURE (BEAKER) (test bgbj=0085) 37.0 C FIO2 (BEAKER) (test apbf=6953) 100.0 % MISCELLANEOUS LAB [id number] 14:48:00 Test Item Value Reference Range Comments SCAN RESULT (test crnu=[id number]) Result comments: Coagulase Negative Staphylococcus Species (CoNS) DETECTED, Methicillin Susceptible First line therapy: cefazolin, nafcillin (nafcillin preferred for Central Nervous System infection) Coagulase Negative Staphylococcus (CoNS) DETECTED mecA NOT DETECTED Other organisms and resistance markers not contained in this PCR panel cannot be excluded and follow-up of traditional culture results is required. This sample was tested at the [facility] using the [employer] Blood Culture ID Panel. This test is FDA cleared for in vitro diagnostic use and has been verified and approved by the [facility] for clinical use. Reference Range: Not DetectedEEG MONITORING WITH VIDEO RECORDING EACH 24 [id number] 12:55:00For STAT EEG- after 5 PM weekdays, weekends and holidays, page the on-call window tinter Reason for exam:->ECMO protocolDate(s) of EE/21- DATE OF REPORT: 12/30/2017 ACC: [id number] EEG Number: [id number] Test Location: Inpatient ICU Start time: 13:11 Stop time: 10:23 ICD-10: R 56.9 CPT Code: 74168 HISTORY: ECMO protocol MEDICATIONS THAT COULD AFFECT [...] significant change. Sonny Smith MD Attending Neurophysiologist [facility] HEPARIN [id number] 12:39:00 Test Item Value Reference Range Comments HEPARIN ANTIBODY (BEAKER) (test qyco=707) Negative Negative HEPARIN ANTIBODY OD (BEAKER) (test zmbz=3534) 0.115 <0.400 4T TOTAL SCORE (BEAKER) (test hkfi=7489) 3 Probability of HIT based on scoring system: 6-8=High probability; 4-5= intermediate probability; 0-3=low probabilityURINE [id number] 12:16:00 Test Item Value Reference Range Comments CULTURE (BEAKER) (test gsoq=4637) No growth THROMBOELASTOGRAPH (TEG)2017-12-30 10:33:00 Test Item Value Reference Range Comments TEG ACTIVATED CLOTTING TIME (BEAKER) (test 16.8 minutes 4.0-7.0 bfye=1321) TEG FIBRINOGEN ACTIVITY (BEAKER) (test 34.6 degrees 61.0-73.0 alie=1537) TEG PLT. AGGREGATION (BEAKER) (test crbp=1843) 59.0 MM 55.0-65.0 TEG FIBRINOLYSIS (BEAKER) (test amtp=8350) 0.0 % 0.0-5.0 TGH ACTIVATED CLOTTING TIME (BEAKER) (test 8.4 minutes 4.0-7.0 iwlk=4194) TGH FIBRINOGEN ACTIVITY (BEAKER) (test 56.9 degrees 61.0-73.0 gdes=1857) TGH PLT. AGGREGATION (BEAKER) (test zpwx=7110) 54.8 MM 55.0-65.0 TGH FIBRINOLYSIS (BEAKER) (test wrqi=6429) 0.0 % 0.0-5.0 ANTITHROMBIN [id number] 10:05:00 Test Item Value Reference Range Comments ANTITHROMBIN III ACTIVITY (BEAKER) (test dquk=486) 70.0 % 80.0-120.0 RAD, CHEST, 1 VIEW, NON [id number] 10:01:00Reason for exam:->s/p left chest tubeShould this [...] MDReport Verified Date/Time: 12/30/2017 10:01:00 Reading Location: [facility] Radiology Reading Room SPUTUM CULTURE + GRAM [id number] 09:57 :00 Test Item Value Reference Range Comments CULTURE (BEAKER) <1+ Beta-hemolytic (test ztkc=0699) streptococcus group A, by serological grouping GRAM STAIN RESULT 4+ WBCs (BEAKER) (test hwoi=5612) GRAM STAIN RESULT 0-5 epithelial cells (BEAKER) (test uoof=854158) GRAM STAIN RESULT 1+ gram positive cocci (BEAKER) (test in chains, pairs and cenf=463076) clusters No Normal respiratory сергей presentBLOOD GAS, [id number] 08:55:00 Test Item Value Reference Range Comments PH ARTERIAL (BEAKER) (test wfcu=135) 7.49 7.35-7.45 PCO2 ARTERIAL (BEAKER) (test kdtk=541) 36 mmHg 35-45 PO2 ARTERIAL (BEAKER) (test bbhy=329) 89 mmHg 80-90 O2 SATURATION ARTERIAL (BEAKER) (test qkpe=700) 97.6 % 96.0-97.0 HCO3 ARTERIAL (BEAKER) (test gyqi=175) 27 mmol/L 21-29 BASE EXCESS ARTERIAL (BEAKER) (test thyb=062) 3.1 mmol/L -2.0-3.0 PATIENT TEMPERATURE (BEAKER) (test alza=2854) 36.4 C FIO2 (BEAKER) (test tytk=2113) 90.0 % CALCIUM, [id number] 08:53:00 Test Item Value Reference Range Comments CALCIUM IONIZED (BEAKER) (test yopx=463) 1.14 mmol/L 1.12-1.27 PH, BLOOD (BEAKER) (test suhy=5235) 7.48 [id number] 08:38:00 Test Item Value Reference Range Comments POTASSIUM (BEAKER) (test ddct=877) 4.4 meq/L 3.5-5.1 [id number] 08:38:00 Test Item Value Reference Range Comments MAGNESIUM (BEAKER) (test tdwf=012) 2.4 mg/dL 1.6-2.6 [id number] 08:38:00 Test Item Value Reference Range Comments PHOSPHORUS (BEAKER) (test iwlu=502) 3.7 mg/dL 2.3-4.7 [id number] 08:38:00 Test Item Value Reference Range Comments SODIUM (BEAKER) (test uxqg=211) 140 meq/L 136-145 [id number] 08:32:00 Test Item Value Reference Range Comments PARTIAL THROMBOPLASTIN TIME (BEAKER) (test 38.3 seconds 22.5-36.0 wyqx=708) HEPARIN ASSAY - [id number] 08:01:00 Test Item Value Reference Range Comments UNFRACTIONATED HEPARIN-ANTI 10A (BEAKER) (test < u/ml 0.30-0.70 auym=5250) Recommendations for Monitoring Unfractionated Heparin Therapeutic Range: 0.3- 0.7 u/mL with continuous IV infusionCBC W/PLT COUNT & AUTO [id number] 08:01:00 Test Item Value Reference Range Comments WHITE BLOOD CELL COUNT (BEAKER) (test hnjg=024) 25.4 K/ L 3.5-10.5 RED BLOOD CELL COUNT (BEAKER) (test arpw=405) 2.49 M/ L 3.93-5.22 HEMOGLOBIN (BEAKER) (test mcgq=861) 7.6 GM/DL 11.2-15.7 HEMATOCRIT (BEAKER) (test eqdt=739) 22.7 % 34.1-44.9 MEAN CORPUSCULAR VOLUME (BEAKER) (test ujae=507) 91.2 fL 79.4-94.8 MEAN CORPUSCULAR HEMOGLOBIN (BEAKER) (test 30.5 pg 25.6-32.2 hbvl=056) MEAN CORPUSCULAR HEMOGLOBIN CONC (BEAKER) (test 33.5 GM/DL 32.2-35.5 qqxa=584) RED CELL DISTRIBUTION WIDTH (BEAKER) (test 15.9 % 11.7-14.4 kpoe=660) PLATELET COUNT (BEAKER) (test qfpq=986) 46 K/CU MM 150-450 MEAN PLATELET VOLUME (BEAKER) (test wqcl=645) 11.2 fL 9.4-12.3 NUCLEATED RED BLOOD CELLS (BEAKER) (test 0 /100 WBC 0-0 elxx=520) (CELLAVISION MANUAL DIFF)2017-12-30 08:01:00 Test Item Value Reference Range Comments NEUTROPHILS - REL (CELLAVISION)(BEAKER) (test 61 % pvgu=8659) LYMPHOCYTES - REL (CELLAVISION)(BEAKER) (test 5 % tjia=4889) MONOCYTES - REL (CELLAVISION)(BEAKER) (test 8 % aqto=7917) METAMYELOCYTES - REL (CELLAVISION)(BEAKER) (test 6 % 0-0 vvrq=7899) MYELOCYTES - REL (CELLAVISION)(BEAKER) (test 5 % 0-0 olrm=8453) PROMYELOCYTES - REL (CELLAVSION)(BEAKER) (test 4 % 0-0 drca=6506) BANDS - REL (CELLAVISION)(BEAKER) (test 11 % 0-10 lhwj=0490) NEUTROPHILS - ABS (CELLAVISION)(BEAKER) (test 15.49 K/ul 1.56-6.13 hstm=2247) LYMPHOCYTES - ABS (CELLAVISION)(BEAKER) (test 1.27 K/ul 1.18-3.74 dmhf=8033) MONOCYTES - ABS (CELLAVISION)(BEAKER) (test 2.03 K/uL 0.24-0.36 dwwr=8068) METAMYELOCYTES - ABS (CELLAVISION)(BEAKER) (test 1.52 K/uL 0.00-0.00 qiqv=8507) MYELOCYTES-ABS (CELLAVISION)(BEAKER) (test 1.27 K/uL 0.00-0.00 ylal=6026) PROMYELOCYTES - ABS (CELLAVISION)(BEAKER) (test 1.02 K/uL 0.00-0.00 jsre=8147) BANDS - ABS (CELLAVISION)(BEAKER) (test 2.79 K/uL 0.00-0.80 adcc=7968) TOTAL COUNTED (BEAKER) (test hkjc=4151) 100 RBC MORPHOLOGY (BEAKER) (test jwqu=670) Normal WBC MORPHOLOGY (BEAKER) (test igqv=025) Normal PLT MORPHOLOGY (BEAKER) (test nvjr=116) Normal ARTIFACT (CELLAVISION)(BEAKER) (test cokx=7332) Present PLATELET CONCENTRATION (CELLAVISION)(BEAKER) Decreased (test tiew=8413) Received comment: User comments: Slide comments:THROMBOELASTOGRAPH (TEG) 06:53:00 Test Item Value Reference Range Comments TEG ACTIVATED CLOTTING TIME (BEAKER) (test 20.2 minutes 4.0-7.0 njag=5800) TEG FIBRINOGEN ACTIVITY (BEAKER) (test 12.0 degrees 61.0-73.0 xwhd=2743) TEG PLT. AGGREGATION (BEAKER) (test kntl=7431) 63.8 MM 55.0-65.0 TEG FIBRINOLYSIS (BEAKER) (test zuez=3361) 0.0 % 0.0-5.0 TGH ACTIVATED CLOTTING TIME (BEAKER) (test 9.1 minutes 4.0-7.0 kvof=2045) TGH FIBRINOGEN ACTIVITY (BEAKER) (test 60.9 degrees 61.0-73.0 fzjg=8251) TGH PLT. AGGREGATION (BEAKER) (test grka=3607) 65.6 MM 55.0-65.0 TGH FIBRINOLYSIS (BEAKER) (test jbse=4792) 0.0 % 0.0-5.0 RAD, CHEST, 1 VIEW, NON [id number] 06:00:00Reason for exam:->pneumonia ecmoShould this be performed [...] MDReport Verified Date/Time: 12/30/2017 06:00:37 Reading Location: [address] Transitional Reading Room Electronically signedby: SHAD JOSEPH MD on 12/30/2017 06:00 AMBLOOD GAS, [id number] 05:37:00 Test Item Value Reference Range Comments PH ARTERIAL (BEAKER) (test tddd=971) 7.49 7.35-7.45 PCO2 ARTERIAL (BEAKER) (test avhy=469) 39 mmHg 35-45 PO2 ARTERIAL (BEAKER) (test xsvp=270) 556 mmHg 80-90 O2 SATURATION ARTERIAL (BEAKER) (test shmd=565) 99.9 % 96.0-97.0 HCO3 ARTERIAL (BEAKER) (test gail=862) 29 mmol/L 21-29 BASE EXCESS ARTERIAL (BEAKER) (test oqpy=978) 5.0 mmol/L -2.0-3.0 PATIENT TEMPERATURE (BEAKER) (test ozoy=3602) 36.5 C FIO2 (BEAKER) (test eeko=9816) 100.0 % [id number] 05:07:00 Test Item Value Reference Range Comments CREATININE (BEAKER) (test 1.54 mg/dL 0.57-1.25 mjrv=096) EGFR (BEAKER) (test mL/min/1.73 sq m INSUFFICIENT CLINICAL DATA toql=6079) TO CALCULATE ESTIMATED GFR. BASIC METABOLIC [id number] 05:07:00 Test Item Value Reference Range Comments SODIUM (BEAKER) (test 141 meq/L 136-145 jiud=512) POTASSIUM (BEAKER) (test 4.2 meq/L 3.5-5.1 qxut=653) CHLORIDE (BEAKER) (test 105 meq/L 98-107 yuwg=341) CO2 (BEAKER) (test 26 meq/L 22-29 ishl=882) BLOOD UREA NITROGEN 23 mg/dL 7-21 (BEAKER) (test pbwr=383) CREATININE (BEAKER) (test 1.54 mg/dL 0.57-1.25 vxfj=486) GLUCOSE RANDOM (BEAKER) 123 mg/dL 70-105 (test ccrb=668) CALCIUM (BEAKER) (test 8.5 mg/dL 8.4-10.2 htny=748) EGFR (BEAKER) (test mL/min/1.73 sq m INSUFFICIENT CLINICAL DATA gmco=2767) TO CALCULATE ESTIMATED GFR. BLOOD GAS, [id number] 05:07:00 Test Item Value Reference Range Comments PH ARTERIAL (BEAKER) (test htbd=560) 7.47 7.35-7.45 PCO2 ARTERIAL (BEAKER) (test dtko=834) 39 mmHg 35-45 PO2 ARTERIAL (BEAKER) (test pdkk=535) 69 mmHg 80-90 O2 SATURATION ARTERIAL (BEAKER) (test mwom=846) 95.7 % 96.0-97.0 HCO3 ARTERIAL (BEAKER) (test xtcb=015) 28 mmol/L 21-29 BASE EXCESS ARTERIAL (BEAKER) (test bsmq=919) 3.9 mmol/L -2.0-3.0 PATIENT TEMPERATURE (BEAKER) (test tmex=5556) 35.7 C FIO2 (BEAKER) (test wehn=2282) 90.0 % [id number] 05:05:00 Test Item Value Reference Range Comments D-DIMER QUANTITATIVE (BEAKER) (test ngug=731) 2.70 MG/L FEU <0.50 Intended Use: The D-Dimer Assay can be used to aid in the diagnosis of Deep Vein Thrombosis (DVT) and Pulmonary Embolism Disease (PED).In patients with low pre-test probability, various studies concerning STA Liatest D-dimer test have reported that with a cutoff value of 0.50 MG/L FEU, the Negative Predictive Value (NPV) regarding the exclusion of thrombosis is within 95-100% range.[id number] 05:01:00 Test Item Value Reference Range Comments BLOOD UREA NITROGEN (BEAKER) (test jaqv=333) 23 mg/dL 7-21 HEPATIC FUNCTION [id number] 05:01:00 Test Item Value Reference Range Comments TOTAL PROTEIN (BEAKER) (test ther=426) 4.5 gm/dL 6.0-8.3 ALBUMIN (BEAKER) (test avjh=4375) 2.2 g/dL 3.5-5.0 BILIRUBIN TOTAL (BEAKER) (test ypzl=893) 0.4 mg/dL 0.2-1.2 BILIRUBIN DIRECT (BEAKER) (test gslr=419) 0.3 mg/dL 0.1-0.5 ALKALINE PHOSPHATASE (BEAKER) (test rimr=376) 62 U/L 40-150 AST (SGOT) (BEAKER) (test xlpk=946) 49 U/L 5-34 ALT (SGPT) (BEAKER) (test oxbf=143) 22 U/L 6-55 [id number] 05:01:00 Test Item Value Reference Range Comments SODIUM (BEAKER) (test dsie=719) 141 meq/L 136-145 POTASSIUM (BEAKER) (test dfpe=432) 4.2 meq/L 3.5-5.1 CHLORIDE (BEAKER) (test kanj=783) 105 meq/L 98-107 CO2 (BEAKER) (test qgsz=257) 26 meq/L 22-29 [id number] 05:01:00 Test Item Value Reference Range Comments MAGNESIUM (BEAKER) (test qizm=162) 2.1 mg/dL 1.6-2.6 [id number] 05:01:00 Test Item Value Reference Range Comments PHOSPHORUS (BEAKER) (test zcbj=369) 3.3 mg/dL 2.3-4.7 [id number] 05:01:00 Test Item Value Reference Range Comments GLUCOSE RANDOM (BEAKER) (test kcqx=656) 123 mg/dL 70-105 LACTATE DEHYDROGENASE (LDH)2017-12-30 05:01:00 Test Item Value Reference Range Comments LACTATE DEHYDROGENASE (BEAKER) (test ebrw=230) 419 U/L 125-220 CALCIUM, [id number] 05:00:00 Test Item Value Reference Range Comments CALCIUM IONIZED (BEAKER) (test emkq=265) 1.16 mmol/L 1.12-1.27 PH, BLOOD (BEAKER) (test wzro=3961) 7.45 [id number] 04:59:00 Test Item Value Reference Range Comments FIBRINOGEN LEVEL (BEAKER) (test jllt=576) 616 mg/dl 225-434 PROTHROMBIN TIME/[id number] 04:56:00 Test Item Value Reference Range Comments PROTIME (BEAKER) (test qmed=898) 15.5 seconds 11.7-14.7 INR (BEAKER) (test vgmr=081) 1.2 <=5.9 RECOMMENDED COUMADIN/WARFARIN INR THERAPY RANGESSTANDARD DOSE: 2.0 - 3.0 Includes: PROPHYLAXIS forvenous thrombosis, systemic embolization; TREATMENT for venous thrombosis and/or pulmonary embolus.HIGH RISK: Target INR is 2.5-3.5 for patients with mechanical heart valves.[id number] 04:55:00 Test Item Value Reference Range Comments PARTIAL THROMBOPLASTIN TIME (BEAKER) (test 49.9 seconds 22.5-36.0 loeh=513) LACTIC ACID, ARTERIAL, WHOLE [id number] 04:54:00 Test Item Value Reference Range Comments LACTATE BLOOD ARTERIAL (2) (BEAKER) (test 1.0 mmol/L 0.5-2.2 azdh=3381) Effective 11/12/2015: Units/Reference Range ChangeNew: 0.5-2.2 mmol/L Previous: 5 -20 mg/[id number] 01:14:00 Test Item Value Reference Range Comments POTASSIUM (BEAKER) (test ngne=872) 4.2 meq/L 3.5-5.1 BLOOD GAS, [id number] 01:06:00 Test Item Value Reference Range Comments PH ARTERIAL (BEAKER) (test ycqa=862) 7.45 7.35-7.45 PCO2 ARTERIAL (BEAKER) (test htfs=064) 41 mmHg 35-45 PO2 ARTERIAL (BEAKER) (test hpsj=746) 80 mmHg 80-90 O2 SATURATION ARTERIAL (BEAKER) (test lala=606) 96.6 % 96.0-97.0 HCO3 ARTERIAL (BEAKER) (test ojiz=783) 28 mmol/L 21-29 BASE EXCESS ARTERIAL (BEAKER) (test brtd=428) 3.5 mmol/L -2.0-3.0 PATIENT TEMPERATURE (BEAKER) (test quxi=4603) 36.3 C FIO2 (BEAKER) (test wghl=4799) 100.0 % CALCIUM, [id number] 01:02:00 Test Item Value Reference Range Comments CALCIUM IONIZED (BEAKER) (test zydq=958) 1.13 mmol/L 1.12-1.27 PH, BLOOD (BEAKER) (test kqvh=5947) 7.44 RAD, CHEST, 1 VIEW, NON [id number] 00:08:00Reason for exam:->ETT exchangeShould this be performed at the bedside?->YesFINAL REPORT EXAMINATION: AP PORTABLE CHEST RADIOGRAPH CLINICAL INDICATION: Endotracheal tube placement IMPRESSION: Compared with 12/29/2017, 1111 hours. The tip of the endotracheal tube projects over the midline approximately 2.4 cm superior to the wlaly. Bilateral jugular central lines are again noted [...] new lung consolidation or pneumothorax. Signed: Milind Laguerreeport Verified Date/Time: 12/30/2017 00:08:59 Reading Location: [address] Reading Room [id number] 20:40:00 Test Item Value Reference Range Comments POTASSIUM (BEAKER) (test oins=632) 4.2 meq/L 3.5-5.1 [id number] 20:40:00 Test Item Value Reference Range Comments MAGNESIUM (BEAKER) (test kpyn=729) 2.1 mg/dL 1.6-2.6 [id number] 20:40:00 Test Item Value Reference Range Comments PHOSPHORUS (BEAKER) (test xdmx=197) 2.7 mg/dL 2.3-4.7 [id number] 20:40:00 Test Item Value Reference Range Comments SODIUM (BEAKER) (test fqby=686) 140 meq/L 136-145 HEPARIN ASSAY - [id number] 20:40:00 Test Item Value Reference Range Comments UNFRACTIONATED HEPARIN-ANTI 10A (BEAKER) (test < u/ml 0.30-0.70 irds=2576) Recommendations for Monitoring Unfractionated Heparin Therapeutic Range: 0.3- 0.7 u/mL with continuous IV infusionBLOOD GAS, [id number] 20:20:00 Test Item Value Reference Range Comments PH ARTERIAL (BEAKER) (test dsbk=445) 7.45 7.35-7.45 PCO2 ARTERIAL (BEAKER) (test sdhl=528) 41 mmHg 35-45 PO2 ARTERIAL (BEAKER) (test apgg=232) 85 mmHg 80-90 O2 SATURATION ARTERIAL (BEAKER) (test sxrk=206) 97.0 % 96.0-97.0 HCO3 ARTERIAL (BEAKER) (test dnxg=151) 28 mmol/L 21-29 BASE EXCESS ARTERIAL (BEAKER) (test itrj=570) 3.1 mmol/L -2.0-3.0 PATIENT TEMPERATURE (BEAKER) (test aaiz=6454) 36.3 C FIO2 (BEAKER) (test mfvv=7222) 100.0 % THROMBOELASTOGRAPH (TEG)2017-12-29 19:55:00 Test Item Value Reference Range Comments TEG ACTIVATED CLOTTING TIME (BEAKER) (test 18.4 minutes 4.0-7.0 vuqr=2500) TEG FIBRINOGEN ACTIVITY (BEAKER) (test 24.0 degrees 61.0-73.0 olvd=4233) TEG PLT. AGGREGATION (BEAKER) (test aqlx=8696) 48.5 MM 55.0-65.0 TEG FIBRINOLYSIS (BEAKER) (test whwf=8928) 0.0 % 0.0-5.0 TGH ACTIVATED CLOTTING TIME (BEAKER) (test 8.8 minutes 4.0-7.0 ywnf=0378) TGH FIBRINOGEN ACTIVITY (BEAKER) (test 58.5 degrees 61.0-73.0 coil=9163) TGH PLT. AGGREGATION (BEAKER) (test ujzy=5005) 53.6 MM 55.0-65.0 TGH FIBRINOLYSIS (BEAKER) (test cvvz=5183) 0.0 % 0.0-5.0 PROTEIN, BODY [id number] 19:53:00 Test Item Value Reference Range Comments PROTEIN FLUID (BEAKER) (test 3.4 g/dL Light's criteria identifies tiye=471) effusions if one or more are pre Absence of reference range indicates that normals have not been defined.Assay performance has not been validated for this type of specimen.Please use existing specimenGLUCOSE, BODY [id number] 19:53:00 Test Item Value Reference Range Comments GLUCOSE, BODY FLUID (BEAKER) (test zvhf=8201) < mg/dL 70-110 Absence of reference range indicates that normals have not been defined.Assay performance has not been validated for this type of specimen.Please use existing specimenFIBRIN SOLUBLE [id number] 19:33:00 Test Item Value Reference Range Comments FIBRIN SOLUBLE MONOMER (BEAKER) (test jsfk=8564) Negative BLOOD GAS, [id number] 18:50:00 Test Item Value Reference Range Comments PH ARTERIAL (BEAKER) (test tclw=346) 7.42 7.35-7.45 PCO2 ARTERIAL (BEAKER) (test mpav=177) 43 mmHg 35-45 PO2 ARTERIAL (BEAKER) (test hkuq=840) 72 mmHg 80-90 O2 SATURATION ARTERIAL (BEAKER) (test dovk=436) 95.3 % 96.0-97.0 HCO3 ARTERIAL (BEAKER) (test lcfc=913) 27 mmol/L 21-29 BASE EXCESS ARTERIAL (BEAKER) (test haso=233) 2.0 mmol/L -2.0-3.0 PATIENT TEMPERATURE (BEAKER) (test wmzd=1347) 36.1 C FIO2 (BEAKER) (test ndtn=1510) 90.0 % GLUCOSE-STAT [id number] 18:50:00 Test Item Value Reference Range Comments GLUCOSE RANDOM (BEAKER) (test dwia=334) 127 mg/dL 70-110 HGB/HCT (H&H) - STAT [id number] 18:50:00 Test Item Value Reference Range Comments HEMOGLOBIN (BEAKER) (test onyo=460) 9.4 g/dL 12.0-15.0 HEMATOCRIT (BEAKER) (test kftd=022) 28.0 % 36.0-45.0 SODIUM NA-STAT [id number] 18:48:00 Test Item Value Reference Range Comments SODIUM (BEAKER) (test iwvo=046) 136 meq/L 135-148 POTASSIUM-STAT [id number] 18:48:00 Test Item Value Reference Range Comments POTASSIUM (BEAKER) (test oioa=227) 4.1 meq/L 3.6-5.5 [id number] 18:25:00 Test Item Value Reference Range Comments PARTIAL THROMBOPLASTIN TIME (BEAKER) (test 40.6 seconds 22.5-36.0 pmha=511) BLOOD GAS, [id number] 18:10:00 Test Item Value Reference Range Comments PH ARTERIAL (BEAKER) (test aegb=660) 7.43 7.35-7.45 PCO2 ARTERIAL (BEAKER) (test mvtt=846) 43 mmHg 35-45 PO2 ARTERIAL (BEAKER) (test ytua=382) 70 mmHg 80-90 O2 SATURATION ARTERIAL (BEAKER) (test rnrn=977) 94.9 % 96.0-97.0 HCO3 ARTERIAL (BEAKER) (test wood=719) 28 mmol/L 21-29 BASE EXCESS ARTERIAL (BEAKER) (test oekd=844) 3.2 mmol/L -2.0-3.0 PATIENT TEMPERATURE (BEAKER) (test vtpf=7954) 36.5 C FIO2 (BEAKER) (test jhyu=5000) 90.0 % FIBRIN SOLUBLE [id number] 17:56:00 Test Item Value Reference Range Comments FIBRIN SOLUBLE MONOMER (BEAKER) (test klmj=7549) Negative THROMBOELASTOGRAPH (TEG)2017-12-29 17:52:00 Test Item Value Reference Range Comments TEG ACTIVATED CLOTTING TIME (BEAKER) (test 14.4 minutes 4.0-7.0 zcqa=1024) TEG FIBRINOGEN ACTIVITY (BEAKER) (test 40.8 degrees 61.0-73.0 xbal=6507) TEG PLT. AGGREGATION (BEAKER) (test ruoj=1798) 54.4 MM 55.0-65.0 TEG FIBRINOLYSIS (BEAKER) (test bcys=0456) 0.0 % 0.0-5.0 TGH ACTIVATED CLOTTING TIME (BEAKER) (test 8.3 minutes 4.0-7.0 cvpe=0125) TGH FIBRINOGEN ACTIVITY (BEAKER) (test 61.3 degrees 61.0-73.0 hfra=7193) TGH PLT. AGGREGATION (BEAKER) (test boxk=1045) 56.2 MM 55.0-65.0 TGH FIBRINOLYSIS (BEAKER) (test ukca=6331) 0.0 % 0.0-5.0 [id number] 16:48:00 Test Item Value Reference Range Comments D-DIMER QUANTITATIVE (BEAKER) (test cacn=792) 12.34 MG/L FEU <0.50 Intended Use: The D-Dimer Assay can be used to aid in the diagnosis of Deep Vein Thrombosis (DVT) and Pulmonary Embolism Disease (PED).In patients with low pre-test probability, various studies concerning STA Liatest D-dimer test have reported that with a cutoff value of 0.50 MG/L FEU, the Negative Predictive Value (NPV) regarding the exclusion of thrombosis is within 95-100% range.[id number] 16:39:00 Test Item Value Reference Range Comments FIBRINOGEN LEVEL (BEAKER) (test pjkz=944) 616 mg/dl 225-434 [id number] 16:39:00 Test Item Value Reference Range Comments PARTIAL THROMBOPLASTIN TIME (BEAKER) (test 42.1 seconds 22.5-36.0 vmpm=791) PROTHROMBIN [id number] 16:38:00 Test Item Value Reference Range Comments PROTIME (BEAKER) (test ivtw=471) 15.5 seconds 11.7-14.7 INR (BEAKER) (test hxfu=731) 1.2 <=5.9 RECOMMENDED COUMADIN/WARFARIN INR THERAPY RANGESSTANDARD DOSE: 2.0 - 3.0 Includes: PROPHYLAXIS forvenous thrombosis, systemic embolization; TREATMENT for venous thrombosis and/or pulmonary embolus.HIGH RISK: Target INR is 2.5-3.5 for patients with mechanical heart valves.[id number] 16:26:00 Test Item Value Reference Range Comments POTASSIUM (BEAKER) (test datb=257) 4.3 meq/L 3.5-5.1 PLATELET [id number] 16:17:00 Test Item Value Reference Range Comments PLATELET COUNT (BEAKER) (test jwdf=870) 60 K/CU MM 150-450 CALCIUM, [id number] 16:12:00 Test Item Value Reference Range Comments CALCIUM IONIZED (BEAKER) (test khey=375) 1.13 mmol/L 1.12-1.27 PH, BLOOD (BEAKER) (test aogr=0011) 7.41 BLOOD GAS, [id number] 16:09:00 Test Item Value Reference Range Comments PH ARTERIAL (BEAKER) (test ophr=939) 7.41 7.35-7.45 PCO2 ARTERIAL (BEAKER) (test fgen=823) 42 mmHg 35-45 PO2 ARTERIAL (BEAKER) (test gtlp=063) 85 mmHg 80-90 O2 SATURATION ARTERIAL (BEAKER) (test guhf=945) 96.7 % 96.0-97.0 HCO3 ARTERIAL (BEAKER) (test ejed=251) 27 mmol/L 21-29 BASE EXCESS ARTERIAL (BEAKER) (test gwip=229) 1.7 mmol/L -2.0-3.0 PATIENT TEMPERATURE (BEAKER) (test bxej=7111) 36.4 C FIO2 (BEAKER) (test rbft=2034) 100.0 % EEG AWAKE AND [id number] 15:37:00Date(s) of EE12/29/2017DATE OF REPORT: 12/29/2017ACC: [id number] Number: [id number] Location: Inpatient ICUStart time: 12:51Stop time: 13:11ICD-10: R 56.9CPT Code: 43854 HISTORY: ECMO protocol MEDICATIONS THAT COULD AFFECT [...] Clara Perez MDNeurophysiology Fellow, PGY5 Sonny Smith MDAkind[facility] NeurophysiologistBallinger [facility] [id number] 14:39:00 Test Item Value Reference Range Comments POTASSIUM (BEAKER) (test uiin=669) 4.3 meq/L 3.5-5.1 PH, BODY [id number] 14:02:00 Test Item Value Reference Range Comments PH, BODY FLUID (BEAKER) (test zuro=3791) 7.26 BLOOD GAS, [id number] 13:58:00 Test Item Value Reference Range Comments PH ARTERIAL (BEAKER) (test mvss=690) 7.44 7.35-7.45 PCO2 ARTERIAL (BEAKER) (test cskh=053) 40 mmHg 35-45 PO2 ARTERIAL (BEAKER) (test qbpw=954) 72 mmHg 80-90 O2 SATURATION ARTERIAL (BEAKER) (test tuth=856) 95.6 % 96.0-97.0 HCO3 ARTERIAL (BEAKER) (test mfmp=500) 27 mmol/L 21-29 BASE EXCESS ARTERIAL (BEAKER) (test bgop=252) 2.2 mmol/L -2.0-3.0 PATIENT TEMPERATURE (BEAKER) (test nttp=6254) 36.1 C FIO2 (BEAKER) (test xntg=5158) 100.0 % POCT-GLUCOSE [id number] 13:55:00 Test Item Value Reference Range Comments POC-GLUCOSE METER (BEAKER) 132 mg/dL 70-110 TESTED AT [address] (test jnqo=8372) [facility] [address] POCT-GLUCOSE [id number] 13:55:00 Test Item Value Reference Range Comments POC-GLUCOSE METER (BEAKER) 140 mg/dL 70-110 TESTED AT [address] (test kbya=5481) [facility] [address] POCT-GLUCOSE [id number] 13:55:00 Test Item Value Reference Range Comments POC-GLUCOSE METER (BEAKER) 137 mg/dL 70-110 TESTED AT [address] (test nhfz=2797) [facility] [address] POCT-GLUCOSE [id number] 13:55:00 Test Item Value Reference Range Comments POC-GLUCOSE METER (BEAKER) 149 mg/dL 70-110 TESTED AT [address] (test xfcz=2525) [facility] [address] POCT-GLUCOSE [id number] 13:55:00 Test Item Value Reference Range Comments POC-GLUCOSE METER (BEAKER) 159 mg/dL 70-110 TESTED AT [address] (test vctl=3847) [facility] [address] POCT-GLUCOSE [id number] 13:55:00 Test Item Value Reference Range Comments POC-GLUCOSE METER (BEAKER) 142 mg/dL 70-110 TESTED AT [address] (test qvju=5892) [facility] [address] POCT-GLUCOSE [id number] 13:55:00 Test Item Value Reference Range Comments POC-GLUCOSE METER (BEAKER) 135 mg/dL 70-110 TESTED AT [address] (test cgrf=5030) [facility] [address] POCT-GLUCOSE [id number] 13:54:00 Test Item Value Reference Range Comments POC-GLUCOSE METER (BEAKER) 94 mg/dL 70-110 TESTED AT [address] (test goxb=3410) [facility] [address] BODY FLUID CELL COUNT WITH [id number] 13:50:00 Test Item Value Reference Range Comments APPEARANCE FLUID (BEAKER) (test axze=756) Hazy Clear COLOR FLUID (BEAKER) (test mlxa=933) Yellow Colorless, Straw RBC FLUID (BEAKER) (test lztt=717) 40467 /cu mm <=1 ADJUSTED WBC FLUID (BEAKER) (test hkko=9094) 62525 /cu mm <=5 LINING CELLS (BEAKER) (test jaic=4280) 0 /cu mm <=1 NEUTROPHILS FLUID (BEAKER) (test fkno=3257) 63 % LYMPHS FLUID (BEAKER) (test linl=057) 3 % MONO/MACROPHAGE FLUID (BEAKER) (test bsjj=301) 34 % EOSINOPHILS FLUID (BEAKER) (test dnms=412) 0 % BASO FLUID (BEAKER) (test gcml=082) 0 % CONTAINER BODY FLUID (BEAKER) (test howk=5907) EDTA Tube BLOOD GAS, [id number] 11:35:00 Test Item Value Reference Range Comments PH ARTERIAL (BEAKER) (test wwae=903) 7.43 7.35-7.45 PCO2 ARTERIAL (BEAKER) (test cajs=935) 35 mmHg 35-45 PO2 ARTERIAL (BEAKER) (test lirj=183) 61 mmHg 80-90 O2 SATURATION ARTERIAL (BEAKER) (test gnwr=536) 92.7 % 96.0-97.0 HCO3 ARTERIAL (BEAKER) (test cjig=672) 23 mmol/L 21-29 BASE EXCESS ARTERIAL (BEAKER) (test idvt=852) -1.0 mmol/L -2.0-3.0 PATIENT TEMPERATURE (BEAKER) (test kzkk=8444) 36.5 C FIO2 (BEAKER) (test wxsf=8333) 100.0 % LACTATE DEHYDROGENASE (LDH), BODY [id number] 11:26:00 Test Item Value Reference Range Comments LACTATE DEHYDROGENASE FLUID 7914 U/L Light's criteria identifies (BEAKER) (test luuq=569) effusions if one or more are pre Absence of reference range indicates that normals have not been defined.Assay performance has not been validated for this type of specimen.ALBUMIN, BODY [id number] 11:26:00 Test Item Value Reference Range Comments ALBUMIN FLUID (BEAKER) (test pwdq=914) 1.8 gm/dL Reference Range: No Normals Assay performance has not been validated for this type of specimen.RAD, CHEST, 1 VIEW, NON [id number] 11:24:00Reason for exam: ->Post thoracentesis Should this be performed at the bedside?->YesFINAL REPORT Chest one view INDICATION: Post thoracentesis COMPARISON: 12/29/2017 IMPRESSION: Support devices are stable. The left pleural effusion has decreased post thoracentesis. No definite pneumothorax is seen. Cardiac silhouette is enlarged. Pulmonary edema is similar in appearance. Left retrocardiac consolidation or atelectasis remains present. Signed: Flaca Reece MDReport Verified Date/Time: 12/29/2017 11:24:40 Reading Location: [facility] Radiology ReadingRoom SPUTUM CULTURE + GRAM [id number] 10:47 :00 Test Item Value Reference Range Comments CULTURE (BEAKER) (test 4+ Normal respiratory сергей cqjv=9053) present GRAM STAIN RESULT (BEAKER) 2+ WBCs (test vwhs=3643) GRAM STAIN RESULT (BEAKER) 0-5 epithelial cells (test mxiu=76049) GRAM STAIN RESULT (BEAKER) 1+ gram positive cocci in chains (test bzqm=87445) and pairs BLOOD GAS, [id number] 10:03:00 Test Item Value Reference Range Comments PH ARTERIAL (BEAKER) (test ekzi=850) 7.40 7.35-7.45 PCO2 ARTERIAL (BEAKER) (test tnjg=656) 44 mmHg 35-45 PO2 ARTERIAL (BEAKER) (test xsxo=930) 491 mmHg 80-90 O2 SATURATION ARTERIAL (BEAKER) (test cfgy=008) 99.9 % 96.0-97.0 HCO3 ARTERIAL (BEAKER) (test gfym=402) 27 mmol/L 21-29 BASE EXCESS ARTERIAL (BEAKER) (test epbr=098) 1.7 mmol/L -2.0-3.0 PATIENT TEMPERATURE (BEAKER) (test rnil=8764) 36.4 C FIO2 (BEAKER) (test tfjm=2231) 100.0 % Post Oxygenator Gas.THROMBOELASTOGRAPH (TEG)2017-12-29 09:57:00 Test Item Value Reference Range Comments TEG ACTIVATED CLOTTING TIME (BEAKER) (test 6.2 minutes 4.0-7.0 fqbc=4250) TEG FIBRINOGEN ACTIVITY (BEAKER) (test 64.1 degrees 61.0-73.0 mtrv=9779) TEG PLT. AGGREGATION (BEAKER) (test owju=1790) 57.1 MM 55.0-65.0 TEG FIBRINOLYSIS (BEAKER) (test cwmu=2238) 0.3 % 0.0-5.0 TGH ACTIVATED CLOTTING TIME (BEAKER) (test 6.2 minutes 4.0-7.0 tufl=4085) TGH FIBRINOGEN ACTIVITY (BEAKER) (test 61.3 degrees 61.0-73.0 wuny=7218) TGH PLT. AGGREGATION (BEAKER) (test flsl=1648) 53.2 MM 55.0-65.0 TGH FIBRINOLYSIS (BEAKER) (test jzjb=3998) 0.7 % 0.0-5.0 CBC W/PLT COUNT & AUTO [id number] 09:51:00 Test Item Value Reference Range Comments WHITE BLOOD CELL COUNT (BEAKER) (test krdg=033) 19.0 K/ L 3.5-10.5 RED BLOOD CELL COUNT (BEAKER) (test gnki=837) 3.21 M/ L 3.93-5.22 HEMOGLOBIN (BEAKER) (test jumw=962) 9.6 GM/DL 11.2-15.7 HEMATOCRIT (BEAKER) (test uuut=849) 30.0 % 34.1-44.9 MEAN CORPUSCULAR VOLUME (BEAKER) (test loyu=433) 93.5 fL 79.4-94.8 MEAN CORPUSCULAR HEMOGLOBIN (BEAKER) (test 29.9 pg 25.6-32.2 clax=160) MEAN CORPUSCULAR HEMOGLOBIN CONC (BEAKER) (test 32.0 GM/DL 32.2-35.5 rtdy=569) RED CELL DISTRIBUTION WIDTH (BEAKER) (test 15.7 % 11.7-14.4 wuxz=961) PLATELET COUNT (BEAKER) (test lmvw=966) 78 K/CU MM 150-450 MEAN PLATELET VOLUME (BEAKER) (test seeh=929) 10.2 fL 9.4-12.3 NUCLEATED RED BLOOD CELLS (BEAKER) (test 1 /100 WBC 0-0 asup=531) (MANUAL DIFFERENTIAL)2017-12-29 09:51:00 Test Item Value Reference Range Comments NEUTROPHILS - REL (DIFF) (BEAKER) (test yoao=0549) 46 % LYMPHOCYTES - REL (DIFF) (BEAKER) (test ttsv=9601) 6 % MONOCYTES - REL (DIFF) (BEAKER) (test qhqj=7094) 6 % MYELOCYTES-REL (DIFF) (BEAKER) (test pxkv=2214) 2 % 0-0 BANDS - REL (DIFF) (BEAKER) (test prht=7822) 40 % 0-10 NEUTROPHILS - ABS (DIFF) (BEAKER) (test qglm=9812) 8.74 K/ L 1.80-8.00 LYMPHOCYTES - ABS (DIFF) (BEAKER) (test pdsa=4630) 1.14 K/ L 1.48-4.50 MONOCYTES - ABS (DIFF) (BEAKER) (test tgtv=9869) 1.14 K/ L 0.00-1.30 BANDS-ABS (DIFF) (BEAKER) (test oakk=1101) 7.6 K/ L 0.0-0.8 MYELOCYTES-ABS (DIFF) (BEAKER) (test jxjf=7751) 0.38 K/ L 0.00-0.00 TOTAL COUNTED (BEAKER) (test bxnm=7344) 100 BANDS + SEGMENTED NEUTROPHILS (BEAKER) (test 16.34 lwjs=5980) PLT MORPHOLOGY (BEAKER) (test fbgk=486) Normal RBC MORPHOLOGY (BEAKER) (test igau=447) Normal VACUOLATED NEUTROPHILS (BEAKER) (test xpsy=537) Present ANTITHROMBIN [id number] 09:49:00 Test Item Value Reference Range Comments ANTITHROMBIN III ACTIVITY (BEAKER) (test cser=657) 38.0 % 80.0-120.0 ANTITHROMBIN [id number] 09:10:00 Test Item Value Reference Range Comments ANTITHROMBIN III ACTIVITY (BEAKER) (test snpd=658) 35.0 % 80.0-120.0 [id number] 08:41:00 Test Item Value Reference Range Comments POTASSIUM (BEAKER) (test vbna=723) 4.3 meq/L 3.5-5.1 [id number] 08:41:00 Test Item Value Reference Range Comments MAGNESIUM (BEAKER) (test awwu=158) 2.1 mg/dL 1.6-2.6 [id number] 08:41:00 Test Item Value Reference Range Comments PHOSPHORUS (BEAKER) (test ejnm=709) 3.7 mg/dL 2.3-4.7 [id number] 08:41:00 Test Item Value Reference Range Comments SODIUM (BEAKER) (test werc=382) 136 meq/L 136-145 [id number] 08:34:00 Test Item Value Reference Range Comments PARTIAL THROMBOPLASTIN TIME (BEAKER) (test 34.6 seconds 22.5-36.0 jhsu=561) CALCIUM, [id number] 08:20:00 Test Item Value Reference Range Comments CALCIUM IONIZED (BEAKER) (test soht=453) 1.19 mmol/L 1.12-1.27 PH, BLOOD (BEAKER) (test aqbj=6699) 7.44 BLOOD GAS, [id number] 08:20:00 Test Item Value Reference Range Comments PH ARTERIAL (BEAKER) (test ynpf=895) 7.45 7.35-7.45 PCO2 ARTERIAL (BEAKER) (test jafn=911) 39 mmHg 35-45 PO2 ARTERIAL (BEAKER) (test yncd=502) 68 mmHg 80-90 O2 SATURATION ARTERIAL (BEAKER) (test xgdo=717) 94.9 % 96.0-97.0 HCO3 ARTERIAL (BEAKER) (test ltry=989) 27 mmol/L 21-29 BASE EXCESS ARTERIAL (BEAKER) (test tuul=902) 2.8 mmol/L -2.0-3.0 PATIENT TEMPERATURE (BEAKER) (test epjr=6809) 36.3 C FIO2 (BEAKER) (test brmq=6613) 100.0 % CT BRAIN WITHOUT IV CONTRAST - [id number] 07:29:00Reason for exam:-> ECMO protocolFINAL REPORT CT [...] MDReport Verified Date/Time: 12/29/2017 07:29:43 Reading Location: [address] Neuro Reading Room THROMBOELASTOGRAPH (TEG)2017-12-29 06:19:00 Test Item Value Reference Range Comments TEG ACTIVATED CLOTTING TIME (BEAKER) (test 34.7 minutes 4.0-7.0 kdct=0339) TEG FIBRINOGEN ACTIVITY (BEAKER) (test 7.8 degrees 61.0-73.0 lubu=8803) TEG PLT. AGGREGATION (BEAKER) (test qwtl=6341) 14.7 MM 55.0-65.0 TEG FIBRINOLYSIS (BEAKER) (test hpgl=8606) 0.0 % 0.0-5.0 TGH ACTIVATED CLOTTING TIME (BEAKER) (test 10.9 minutes 4.0-7.0 ecmo=3752) TGH FIBRINOGEN ACTIVITY (BEAKER) (test 58.8 degrees 61.0-73.0 hphn=3432) TGH PLT. AGGREGATION (BEAKER) (test kkvh=4282) 54.3 MM 55.0-65.0 TGH FIBRINOLYSIS (BEAKER) (test qrmn=5088) 0.2 % 0.0-5.0 BLOOD GAS, [id number] 05:22:00 Test Item Value Reference Range Comments PH ARTERIAL (BEAKER) (test rtvg=456) 7.37 7.35-7.45 PCO2 ARTERIAL (BEAKER) (test wggv=410) 47 mmHg 35-45 PO2 ARTERIAL (BEAKER) (test kwra=987) 57 mmHg 80-90 O2 SATURATION ARTERIAL (BEAKER) (test qnmz=312) 89.1 % 96.0-97.0 HCO3 ARTERIAL (BEAKER) (test huwa=590) 27 mmol/L 21-29 BASE EXCESS ARTERIAL (BEAKER) (test kmfq=397) 0.7 mmol/L -2.0-3.0 PATIENT TEMPERATURE (BEAKER) (test ftav=3247) 36.5 C FIO2 (BEAKER) (test gerx=6576) 100.0 % [id number] 05:08:00 Test Item Value Reference Range Comments PARTIAL THROMBOPLASTIN TIME (BEAKER) (test 62.7 seconds 22.5-36.0 ecpm=567) Prior to Initiating HeparinHEPARIN ASSAY - [id number] 05:04:00 Test Item Value Reference Range Comments UNFRACTIONATED HEPARIN-ANTI 10A (BEAKER) (test 0.19 u/ml 0.30-0.70 kmhw=0171) Recommendations for Monitoring Unfractionated Heparin Therapeutic Range: 0.3- 0.7 u/mL with continuous IV infusionOXYGEN SATURATION, [id number] 04:37: 00 Test Item Value Reference Range Comments O2 SATURATION (MEASURED) (BEAKER) (test vmvt=1653) 69.2 % BLOOD GAS, [id number] 04:34:00 Test Item Value Reference Range Comments PH ARTERIAL (BEAKER) (test stbk=675) 7.37 7.35-7.45 PCO2 ARTERIAL (BEAKER) (test nxic=195) 48 mmHg 35-45 PO2 ARTERIAL (BEAKER) (test lkjr=177) 52 mmHg 80-90 O2 SATURATION ARTERIAL (BEAKER) (test psal=572) 86.3 % 96.0-97.0 HCO3 ARTERIAL (BEAKER) (test ydom=057) 27 mmol/L 21-29 BASE EXCESS ARTERIAL (BEAKER) (test pgeg=690) 1.4 mmol/L -2.0-3.0 PATIENT TEMPERATURE (BEAKER) (test dthh=4902) 36.5 C FIO2 (BEAKER) (test mmpb=8591) 100.0 % CALCIUM, [id number] 04:34:00 Test Item Value Reference Range Comments CALCIUM IONIZED (BEAKER) (test wrag=735) 1.16 mmol/L 1.12-1.27 PH, BLOOD (BEAKER) (test nnes=7742) 7.36 [id number] 04:31:00 Test Item Value Reference Range Comments D-DIMER QUANTITATIVE (BEAKER) (test kbaq=136) 19.80 MG/L FEU <0.50 Intended Use: The [...] of thrombosis is within 95-100% range.BASIC METABOLIC [id number] 04:28:00 Test Item Value Reference Range Comments SODIUM (BEAKER) (test 139 meq/L 136-145 onvl=195) POTASSIUM (BEAKER) (test 4.6 meq/L 3.5-5.1 vcsl=342) CHLORIDE (BEAKER) (test 104 meq/L 98-107 ohfu=320) CO2 (BEAKER) (test 24 meq/L 22-29 aqhs=858) BLOOD UREA NITROGEN 27 mg/dL 7-21 (BEAKER) (test dvlf=023) CREATININE (BEAKER) (test 2.15 mg/dL 0.57-1.25 aqoe=874) GLUCOSE RANDOM (BEAKER) 140 mg/dL 70-105 (test mnue=224) CALCIUM (BEAKER) (test 8.7 mg/dL 8.4-10.2 zkej=432) EGFR (BEAKER) (test mL/min/1.73 sq m INSUFFICIENT CLINICAL DATA ezwk=2341) TO CALCULATE ESTIMATED GFR. [id number] 04:28:00 Test Item Value Reference Range Comments CREATININE (BEAKER) (test 2.15 mg/dL 0.57-1.25 vdtn=710) EGFR (BEAKER) (test mL/min/1.73 sq m INSUFFICIENT CLINICAL DATA vkzc=5404) TO CALCULATE ESTIMATED GFR. RAD, CHEST, 1 VIEW, NON [id number] 04:28:00Reason for exam:->pneumonia ecmoShould this be performed [...] MDReport Verified Date/Time: 12/29/2017 04:28:49 Reading Location: [address] Reading Room [id number] 04:25:00 Test Item Value Reference Range Comments PHOSPHORUS (BEAKER) (test aift=292) 4.8 mg/dL 2.3-4.7 [id number] 04:25:00 Test Item Value Reference Range Comments MAGNESIUM (BEAKER) (test dkbt=381) 2.3 mg/dL 1.6-2.6 [id number] 04:25:00 Test Item Value Reference Range Comments BLOOD UREA NITROGEN (BEAKER) (test rygx=928) 27 mg/dL 7-21 [id number] 04:25:00 Test Item Value Reference Range Comments SODIUM (BEAKER) (test nucr=615) 139 meq/L 136-145 POTASSIUM (BEAKER) (test alks=680) 4.6 meq/L 3.5-5.1 CHLORIDE (BEAKER) (test krtj=435) 104 meq/L 98-107 CO2 (BEAKER) (test wzxl=317) 24 meq/L 22-29 HEPATIC FUNCTION [id number] 04:25:00 Test Item Value Reference Range Comments TOTAL PROTEIN (BEAKER) (test bivf=689) 4.6 gm/dL 6.0-8.3 ALBUMIN (BEAKER) (test wztp=6728) 2.2 g/dL 3.5-5.0 BILIRUBIN TOTAL (BEAKER) (test djed=353) 0.5 mg/dL 0.2-1.2 BILIRUBIN DIRECT (BEAKER) (test nsmj=411) 0.4 mg/dL 0.1-0.5 ALKALINE PHOSPHATASE (BEAKER) (test kdmo=566) 60 U/L 40-150 AST (SGOT) (BEAKER) (test bzff=537) 66 U/L 5-34 ALT (SGPT) (BEAKER) (test wups=001) 23 U/L 6-55 [id number] 04:25:00 Test Item Value Reference Range Comments GLUCOSE RANDOM (BEAKER) (test fhre=094) 140 mg/dL 70-105 LACTATE DEHYDROGENASE (LDH)2017-12-29 04:25:00 Test Item Value Reference Range Comments LACTATE DEHYDROGENASE (BEAKER) (test pany=490) 354 U/L 125-220 LACTIC ACID, ARTERIAL, WHOLE [id number] 04:22:00 Test Item Value Reference Range Comments LACTATE BLOOD ARTERIAL (2) (BEAKER) (test 1.4 mmol/L 0.5-2.2 lsjt=2489) Effective 11/12/2015: Units/Reference Range ChangeNew: 0.5-2.2 mmol/L Previous: 5 -20 mg/dLPROTHROMBIN [id number] 04:21:00 Test Item Value Reference Range Comments PROTIME (BEAKER) (test hekx=270) 15.7 seconds 11.7-14.7 INR (BEAKER) (test fryr=060) 1.3 <=5.9 RECOMMENDED COUMADIN/WARFARIN INR THERAPY RANGESSTANDARD DOSE: 2.0 - 3.0 Includes: PROPHYLAXIS forvenous thrombosis, systemic embolization; TREATMENT for venous thrombosis and/or pulmonary embolus.HIGH RISK: Target INR is 2.5-3.5 for patients with mechanical heart valves.[id number] 04:21:00 Test Item Value Reference Range Comments FIBRINOGEN LEVEL (BEAKER) (test dhmh=051) 594 mg/dl 225-434 BLOOD GAS, [id number] 03:37:00 Test Item Value Reference Range Comments PH ARTERIAL (BEAKER) (test wlnd=259) 7.40 7.35-7.45 PCO2 ARTERIAL (BEAKER) (test cpzn=043) 43 mmHg 35-45 PO2 ARTERIAL (BEAKER) (test yzfy=913) 485 mmHg 80-90 O2 SATURATION ARTERIAL (BEAKER) (test nzen=777) 99.9 % 96.0-97.0 HCO3 ARTERIAL (BEAKER) (test mqdk=471) 26 mmol/L 21-29 BASE EXCESS ARTERIAL (BEAKER) (test mmto=679) 0.8 mmol/L -2.0-3.0 PATIENT TEMPERATURE (BEAKER) (test arpn=4837) 36.4 C FIO2 (BEAKER) (test pwal=3293) 100.0 % THROMBOELASTOGRAPH (TEG)2017-12-29 02:05:00 Test Item Value Reference Range Comments TEG ACTIVATED CLOTTING TIME (BEAKER) (test 63.5 minutes 4.0-7.0 fekw=1325) TEG FIBRINOGEN ACTIVITY (BEAKER) (test 2.2 degrees 61.0-73.0 zjxy=1274) TEG PLT. AGGREGATION (BEAKER) (test rifk=7796) 5.6 MM 55.0-65.0 TEG FIBRINOLYSIS (BEAKER) (test rwxv=9822) 0.0 % 0.0-5.0 TGH ACTIVATED CLOTTING TIME (BEAKER) (test 7.8 minutes 4.0-7.0 slyc=2793) TGH FIBRINOGEN ACTIVITY (BEAKER) (test 66.9 degrees 61.0-73.0 dwhc=3639) TGH PLT. AGGREGATION (BEAKER) (test qicr=3587) 59.6 MM 55.0-65.0 TGH FIBRINOLYSIS (BEAKER) (test thji=4231) 0.0 % 0.0-5.0 [id number] 00:59:00 Test Item Value Reference Range Comments D-DIMER QUANTITATIVE (BEAKER) (test cufc=998) > MG/L FEU <0.50 Intended Use: The D-Dimer Assay can be used to aid in the diagnosis of Deep Vein Thrombosis (DVT) and Pulmonary Embolism Disease (PED).In patients with low pre-test probability, various studies concerning STA Liatest D-dimer test have reported that with a cutoff value of 0.50 MG/L FEU, the Negative Predictive Value (NPV) regarding the exclusion of thrombosis is within 95-100% range.[id number] 00:41:00 Test Item Value Reference Range Comments FIBRINOGEN LEVEL (BEAKER) (test dcvo=295) 573 mg/dl 225-434 PROTHROMBIN [id number] 00:36:00 Test Item Value Reference Range Comments PROTIME (BEAKER) (test shmv=106) 16.7 seconds 11.7-14.7 INR (BEAKER) (test hgdw=598) 1.4 <=5.9 RECOMMENDED COUMADIN/WARFARIN INR THERAPY RANGESSTANDARD DOSE: 2.0 - 3.0 Includes: PROPHYLAXIS forvenous thrombosis, systemic embolization; TREATMENT for venous thrombosis and/or pulmonary embolus.HIGH RISK: Target INR is 2.5-3.5 for patients with mechanical heart valves.[id number] 00:33:00 Test Item Value Reference Range Comments POTASSIUM (BEAKER) (test tduw=223) 4.2 meq/L 3.5-5.1 CALCIUM, [id number] 00:17:00 Test Item Value Reference Range Comments CALCIUM IONIZED (BEAKER) (test typp=968) 1.08 mmol/L 1.12-1.27 PH, BLOOD (BEAKER) (test vild=1608) 7.39 BLOOD GAS, [id number] 00:17:00 Test Item Value Reference Range Comments PH ARTERIAL (BEAKER) (test wdnm=333) 7.40 7.35-7.45 PCO2 ARTERIAL (BEAKER) (test upnx=014) 43 mmHg 35-45 PO2 ARTERIAL (BEAKER) (test aixp=113) 59 mmHg 80-90 O2 SATURATION ARTERIAL (BEAKER) (test klpu=511) 91.2 % 96.0-97.0 HCO3 ARTERIAL (BEAKER) (test kmpc=031) 26 mmol/L 21-29 BASE EXCESS ARTERIAL (BEAKER) (test nali=882) 1.0 mmol/L -2.0-3.0 PATIENT TEMPERATURE (BEAKER) (test tfjv=7706) 36.4 C FIO2 (BEAKER) (test qwwr=8099) 100.0 % POCT-GLUCOSE [id number] 00:11:00 Test Item Value Reference Range Comments POC-GLUCOSE METER (BEAKER) 115 mg/dL 70-[address] [facility] [address] [facility] (test fmvb=4192) [facility] [address] POCT-GLUCOSE [id number] 00:11:00 Test Item Value Reference Range Comments POC-GLUCOSE METER (BEAKER) 115 mg/dL 70-[address] [facility] [address] [facility] (test ynyk=1046) [facility] [address] POCT-GLUCOSE [id number] 00:11:00 Test Item Value Reference Range Comments POC-GLUCOSE METER (BEAKER) 113 mg/dL 70-110 TESTED AT [place] [id number] [facility] (test kfhh=2716) [facility] [address] [id number] 20:54:00 Test Item Value Reference Range Comments PARTIAL THROMBOPLASTIN TIME (BEAKER) (test 37.5 seconds 22.5-36.0 qlbz=146) [id number] 20:53:00 Test Item Value Reference Range Comments POTASSIUM (BEAKER) (test eulk=437) 4.5 meq/L 3.5-5.1 [id number] 20:53:00 Test Item Value Reference Range Comments MAGNESIUM (BEAKER) (test nfxc=075) 2.3 mg/dL 1.6-2.6 [id number] 20:53:00 Test Item Value Reference Range Comments PHOSPHORUS (BEAKER) (test njpq=822) 3.9 mg/dL 2.3-4.7 [id number] 20:53:00 Test Item Value Reference Range Comments SODIUM (BEAKER) (test zbgc=436) 136 meq/L 136-145 LACTIC ACID, ARTERIAL, WHOLE [id number] 20:51:00 Test Item Value Reference Range Comments LACTATE BLOOD ARTERIAL (2) (BEAKER) (test 1.9 mmol/L 0.5-2.2 oove=2451) Effective 11/12/2015: Units/Reference Range ChangeNew: 0.5-2.2 mmol/L Previous: 5 -20 mg/dLBLOOD GAS, [id number] 20:34:00 Test Item Value Reference Range Comments PH ARTERIAL (BEAKER) (test rogu=266) 7.42 7.35-7.45 PCO2 ARTERIAL (BEAKER) (test gsht=924) 40 mmHg 35-45 PO2 ARTERIAL (BEAKER) (test edxt=276) 61 mmHg 80-90 O2 SATURATION ARTERIAL (BEAKER) (test anei=905) 92.6 % 96.0-97.0 HCO3 ARTERIAL (BEAKER) (test detg=238) 25 mmol/L 21-29 BASE EXCESS ARTERIAL (BEAKER) (test kyom=830) 0.6 mmol/L -2.0-3.0 PATIENT TEMPERATURE (BEAKER) (test fwes=6570) 36.3 C FIO2 (BEAKER) (test mlbw=6618) 100.0 % CBC W/PLT COUNT & AUTO [id number] 19:44:00 Test Item Value Reference Range Comments WHITE BLOOD CELL COUNT (BEAKER) (test lhlv=531) 15.1 K/ L 3.5-10.5 RED BLOOD CELL COUNT (BEAKER) (test salt=061) 3.38 M/ L 3.93-5.22 HEMOGLOBIN (BEAKER) (test tfdr=601) 10.2 GM/DL 11.2-15.7 HEMATOCRIT (BEAKER) (test exck=263) 31.5 % 34.1-44.9 MEAN CORPUSCULAR VOLUME (BEAKER) (test fugd=358) 93.2 fL 79.4-94.8 MEAN CORPUSCULAR HEMOGLOBIN (BEAKER) (test 30.2 pg 25.6-32.2 thnb=556) MEAN CORPUSCULAR HEMOGLOBIN CONC (BEAKER) (test 32.4 GM/DL 32.2-35.5 cffj=904) RED CELL DISTRIBUTION WIDTH (BEAKER) (test 15.5 % 11.7-14.4 rors=409) PLATELET COUNT (BEAKER) (test awgr=592) 108 K/CU MM 150-450 MEAN PLATELET VOLUME (BEAKER) (test ylrm=172) 10.5 fL 9.4-12.3 NUCLEATED RED BLOOD CELLS (BEAKER) (test 0 /100 WBC 0-0 gcab=365) (CELLAVISION MANUAL DIFF)2017-12-28 19:44:00 Test Item Value Reference Range Comments NEUTROPHILS - REL (CELLAVISION)(BEAKER) (test 21 % ydrr=4369) LYMPHOCYTES - REL (CELLAVISION)(BEAKER) (test 6 % rwbf=5021) MONOCYTES - REL (CELLAVISION)(BEAKER) (test 6 % fkoh=8562) EOSINOPHILS - REL (CELLAVISION)(BEAKER) (test 4 % jltn=4552) METAMYELOCYTES - REL (CELLAVISION)(BEAKER) (test 34 % 0-0 srkh=5154) MYELOCYTES - REL (CELLAVISION)(BEAKER) (test 5 % 0-0 ikwr=5146) BANDS - REL (CELLAVISION)(BEAKER) (test 23 % 0-10 ztek=6796) NEUTROPHILS - ABS (CELLAVISION)(BEAKER) (test 3.17 K/ul 1.56-6.13 joqw=0408) LYMPHOCYTES - ABS (CELLAVISION)(BEAKER) (test 0.91 K/ul 1.18-3.74 bnhm=2713) MONOCYTES - ABS (CELLAVISION)(BEAKER) (test 0.91 K/uL 0.24-0.36 sbpv=9325) EOSINOPHILS - ABS (CELLAVISION)(BEAKER) (test 0.60 K/uL 0.04-0.36 chom=1183) METAMYELOCYTES - ABS (CELLAVISION)(BEAKER) (test 5.13 K/uL 0.00-0.00 lupr=6483) MYELOCYTES-ABS (CELLAVISION)(BEAKER) (test 0.76 K/uL 0.00-0.00 enzj=5383) BANDS - ABS (CELLAVISION)(BEAKER) (test 3.47 K/uL 0.00-0.80 kumu=5182) TOTAL COUNTED (BEAKER) (test jpnq=3276) 100 MANUAL NRBC PER 100 CELLS (BEAKER) (test 3 /100 WBC 0-0 xrbs=2965) GIANT PLATELETS (BEAKER) (test tvps=809) Present TOXIC GRANULATION (BEAKER) (test gkxy=904) Present VACUOLATED NEUTROPHILS (BEAKER) (test allv=050) Present POLYCHROMATOPHILLIC RBCS(BEAKER) (test awbv=486) 1+ few ANISOCYTOSIS (BEAKER) (test dsrj=220) 1+ few POIKILOCYTES (BEAKER) (test vnnb=470) 1+ few OVALOCYTES (BEAKER) (test eiuu=049) 1+ few TEAR DROP CELLS (BEAKER) (test cdul=745) 1+ few ARTIFACT (CELLAVISION)(BEAKER) (test zwol=5325) Present PLATELET CONCENTRATION (CELLAVISION)(BEAKER) Decreased (test cvhn=4137) Received comment: User comments: Slide comments:BLOOD GAS, [id number] 18 :05:00 Test Item Value Reference Range Comments PH ARTERIAL (BEAKER) (test mlwp=872) 7.42 7.35-7.45 PCO2 ARTERIAL (BEAKER) (test mlkc=669) 38 mmHg 35-45 PO2 ARTERIAL (BEAKER) (test ymyy=438) 59 mmHg 80-90 O2 SATURATION ARTERIAL (BEAKER) (test lyuj=645) 92.0 % 96.0-97.0 HCO3 ARTERIAL (BEAKER) (test zpgy=183) 25 mmol/L 21-29 BASE EXCESS ARTERIAL (BEAKER) (test qynl=074) 0.0 mmol/L -2.0-3.0 PATIENT TEMPERATURE (BEAKER) (test upvs=9008) 36.4 C FIO2 (BEAKER) (test mowh=9226) 100.0 % GLUCOSE-STAT [id number] 18:04:00 Test Item Value Reference Range Comments GLUCOSE RANDOM (BEAKER) (test eioi=164) 104 mg/dL 70-110 ANTITHROMBIN [id number] 17:52:00 Test Item Value Reference Range Comments ANTITHROMBIN III ACTIVITY (BEAKER) (test efuh=097) 34.0 % 80.0-120.0 Prior to initiating [id number] 17:21:00 Test Item Value Reference Range Comments PARTIAL THROMBOPLASTIN TIME (BEAKER) (test 143.8 seconds 22.5-36.0 ztuc=826) T4, [id number] 17:08:00 Test Item Value Reference Range Comments FREE T4 (BEAKER) (test xtbm=206) 0.62 ng/dL 0.70-1.48 GLUCOSE-STAT [id number] 17:05:00 Test Item Value Reference Range Comments GLUCOSE RANDOM (BEAKER) (test sulr=707) 110 mg/dL 70-110 BLOOD GAS, [id number] 17:05:00 Test Item Value Reference Range Comments PH ARTERIAL (BEAKER) (test nzfm=122) 7.41 7.35-7.45 PCO2 ARTERIAL (BEAKER) (test twev=643) 38 mmHg 35-45 PO2 ARTERIAL (BEAKER) (test icpa=358) 64 mmHg 80-90 O2 SATURATION ARTERIAL (BEAKER) (test gtkn=525) 92.9 % 96.0-97.0 HCO3 ARTERIAL (BEAKER) (test jzzc=126) 24 mmol/L 21-29 BASE EXCESS ARTERIAL (BEAKER) (test lcwj=001) -1.0 mmol/L -2.0-3.0 PATIENT TEMPERATURE (BEAKER) (test ahwl=2770) 36.8 C FIO2 (BEAKER) (test bypb=9938) 100.0 % [id number] 16:47:00 Test Item Value Reference Range Comments PHOSPHORUS (BEAKER) (test lzse=063) 4.2 mg/dL 2.3-4.7 [id number] 16:47:00 Test Item Value Reference Range Comments MAGNESIUM (BEAKER) (test ippe=210) 1.9 mg/dL 1.6-2.6 HEPATIC FUNCTION [id number] 16:47:00 Test Item Value Reference Range Comments TOTAL PROTEIN (BEAKER) (test riwe=262) 4.5 gm/dL 6.0-8.3 ALBUMIN (BEAKER) (test fprm=5896) 2.1 g/dL 3.5-5.0 BILIRUBIN TOTAL (BEAKER) (test vzhs=116) 0.6 mg/dL 0.2-1.2 BILIRUBIN DIRECT (BEAKER) (test nhpg=220) 0.4 mg/dL 0.1-0.5 ALKALINE PHOSPHATASE (BEAKER) (test ijcj=852) 53 U/L 40-150 AST (SGOT) (BEAKER) (test cvby=531) 62 U/L 5-34 ALT (SGPT) (BEAKER) (test tezk=648) 21 U/L 6-55 LACTATE DEHYDROGENASE (LDH)2017-12-28 16:47:00 Test Item Value Reference Range Comments LACTATE DEHYDROGENASE (BEAKER) (test yula=994) 393 U/L 125-220 [id number] 16:40:00 Test Item Value Reference Range Comments D-DIMER QUANTITATIVE (BEAKER) (test lhji=886) > MG/L FEU <0.50 Intended Use: The [...] is within 95-100% range.TSH/ FREE T4 IF [id number] 16:21:00 Test Item Value Reference Range Comments THYROID STIMULATING HORMONE (BEAKER) (test 0.36 uIU/mL 0.35-4.94 rsly=165) GLUCOSE-STAT [id number] 16:13:00 Test Item Value Reference Range Comments GLUCOSE RANDOM (BEAKER) (test ummw=411) 109 mg/dL 70-110 POTASSIUM-STAT [id number] 16:13:00 Test Item Value Reference Range Comments POTASSIUM (BEAKER) (test htuy=247) 4.3 meq/L 3.6-5.5 BLOOD GAS, [id number] 16:13:00 Test Item Value Reference Range Comments PH ARTERIAL (BEAKER) (test jwcw=543) 7.47 7.35-7.45 PCO2 ARTERIAL (BEAKER) (test nehp=102) 28 mmHg 35-45 PO2 ARTERIAL (BEAKER) (test bjnj=556) 136 mmHg 80-90 O2 SATURATION ARTERIAL (BEAKER) (test kfkl=008) 99.0 % 96.0-97.0 HCO3 ARTERIAL (BEAKER) (test csgw=621) 20 mmol/L 21-29 BASE EXCESS ARTERIAL (BEAKER) (test dpet=289) -3.3 mmol/L -2.0-3.0 PATIENT TEMPERATURE (BEAKER) (test lsuf=3024) 36.1 C FIO2 (BEAKER) (test ecmr=6858) 100.0 % HGB/HCT (H&H) - STAT [id number] 16:13:00 Test Item Value Reference Range Comments HEMOGLOBIN (BEAKER) (test evde=780) 10.8 g/dL 12.0-15.0 HEMATOCRIT (BEAKER) (test wkni=107) 32.0 % 36.0-45.0 THROMBOELASTOGRAPH (TEG)2017-12-28 16:06:00 Test Item Value Reference Range Comments TEG ACTIVATED CLOTTING TIME (BEAKER) minutes 4.0-7.0 No clot detected (test pitm=8385) TGH ACTIVATED CLOTTING TIME (BEAKER) 10.0 minutes 4.0-7.0 (test kuye=3940) [facility] FIBRINOGEN ACTIVITY (BEAKER) (test 61.1 degrees 61.0-73.0 fakb=7888) [facility] PLT. AGGREGATION (BEAKER) (test 63.6 MM 55.0-65.0 sipu=8043) [facility] FIBRINOLYSIS (BEAKER) (test 0.0 % 0.0-5.0 joyx=8923) RAD, ABDOMEN/KUB, 1 VIEW [id number] 15:50:00KUBReason for exam:->placement of cannulaFINAL REPORT Abdomen [...] MDReport Verified Date/Time: 12/28/2017 15:50:53 Reading Location: [address] Consult Reading Room RAD, CHEST, 1 VIEW, NON [id number] 15:45:00Reason for exam:->intubatedFINAL REPORT AP chest HISTORY: Intubation COMPARISON: 12/28/2017 IMPRESSION: Endotracheal tube present in satisfactory position. Vascular cannula projects over the right heart. Hypoinflation. Interstitial edema and moderate left effusion, grossly unchanged. No pneumothorax. Signed: Shorty Cottrell Verified Date/Time: 12/28/2017 15:45:04 Reading Location: [facility] Reading Room 03: 45 [id number] 15:38:00 Test Item Value Reference Range Comments PARTIAL THROMBOPLASTIN TIME (BEAKER) (test > seconds 22.5-36.0 qwat=232) BASIC METABOLIC [id number] 15:37:00 Test Item Value Reference Range Comments SODIUM (BEAKER) (test 135 meq/L 136-145 cbyt=486) POTASSIUM (BEAKER) (test 4.7 meq/L 3.5-5.1 skid=666) CHLORIDE (BEAKER) (test 102 meq/L 98-107 pbmi=349) CO2 (BEAKER) (test 19 meq/L 22-29 pjlw=898) BLOOD UREA NITROGEN 32 mg/dL 7-21 (BEAKER) (test cgya=965) CREATININE (BEAKER) (test 2.86 mg/dL 0.57-1.25 uzlw=941) GLUCOSE RANDOM (BEAKER) 111 mg/dL 70-105 (test hgff=969) CALCIUM (BEAKER) (test 7.8 mg/dL 8.4-10.2 eihs=275) EGFR (BEAKER) (test mL/min/1.73 sq m INSUFFICIENT CLINICAL DATA ogut=2795) TO CALCULATE ESTIMATED GFR. [id number] 15:18:00 Test Item Value Reference Range Comments POTASSIUM (BEAKER) (test uset=213) 4.7 meq/L 3.5-5.1 LACTIC ACID, ARTERIAL, WHOLE [id number] 15:17:00 Test Item Value Reference Range Comments LACTATE BLOOD ARTERIAL (2) 2.7 mmol/L 0.5-2.2 Specimen slightly hemolyzed (BEAKER) (test dixg=6427) Effective 11/12/2015: Units/Reference Range ChangeNew: 0.5-2.2 mmol/L Previous: 5 -20 mg/dLPROTHROMBIN TIME/[id number] 15:06:00 Test Item Value Reference Range Comments PROTIME (BEAKER) (test juor=446) 18.5 seconds 11.7-14.7 INR (BEAKER) (test yabp=390) 1.5 <=5.9 RECOMMENDED COUMADIN/WARFARIN INR THERAPY RANGESSTANDARD DOSE: 2.0 - 3.0 Includes: PROPHYLAXIS forvenous thrombosis, systemic embolization; TREATMENT for venous thrombosis and/or pulmonary embolus.HIGH RISK: Target INR is 2.5-3.5 for patients with mechanical heart valves.Prior to initiating heparinOXYGEN SATURATION, [id number] 14:56:00 Test Item Value Reference Range Comments O2 SATURATION (MEASURED) (BEAKER) (test tpcy=4843) 61.3 % POTASSIUM-STAT [id number] 14:50:00 Test Item Value Reference Range Comments POTASSIUM (BEAKER) (test mpur=817) 4.6 meq/L 3.6-5.5 BLOOD GAS, [id number] 14:50:00 Test Item Value Reference Range Comments PH ARTERIAL (BEAKER) (test hblr=401) 7.45 7.35-7.45 PCO2 ARTERIAL (BEAKER) (test mlmt=752) 31 mmHg 35-45 PO2 ARTERIAL (BEAKER) (test hgvk=526) 51 mmHg 80-90 O2 SATURATION ARTERIAL (BEAKER) (test wxgo=476) 90.7 % 96.0-97.0 HCO3 ARTERIAL (BEAKER) (test ubej=895) 21 mmol/L 21-29 BASE EXCESS ARTERIAL (BEAKER) (test wllv=284) -2.4 mmol/L -2.0-3.0 PATIENT TEMPERATURE (BEAKER) (test vxve=5012) 35.4 C FIO2 (BEAKER) (test kprh=9545) 100.0 % SODIUM NA-STAT [id number] 14:50:00 Test Item Value Reference Range Comments SODIUM (BEAKER) (test colo=317) 133 meq/L 135-148 GLUCOSE-STAT [id number] 14:50:00 Test Item Value Reference Range Comments GLUCOSE RANDOM (BEAKER) (test yanc=606) 112 mg/dL 70-110 HGB/HCT (H&H) - STAT [id number] 14:50:00 Test Item Value Reference Range Comments HEMOGLOBIN (BEAKER) (test pibs=818) 10.7 g/dL 12.0-15.0 HEMATOCRIT (BEAKER) (test rxfb=039) 31.0 % 36.0-45.0 RESPIRATORY PANEL [id number] 14:30:00 Test Item Value Reference Range Comments HUMAN METAPNEUMOVIRUS (BEAKER) (test Not detected Not detected, Inconclusive lfuk=2331) RHINOVIRUS (BEAKER) (test bxnp=5296) Not detected Not detected, Inconclusive INFLUENZA A (BEAKER) (test Not detected Not detected, Inconclusive adaa=2496) INFLUENZA A SUBTYPE H1 (BEAKER) Not detected Not detected, Inconclusive (test zomk=6148) INFLUENZA A SUBTYPE H3 (BEAKER) Not detected Not detected, Inconclusive (test mpab=5266) INFLUENZA A SUBTYPE H1-2009 (BEAKER) Not detected Not detected, Inconclusive (test ktub=4211) INFLUENZA B (BEAKER) (test Not detected Not detected, Inconclusive pzos=4288) RESPIRATORY SYNCYTIAL VIRUS (BEAKER) Not detected Not detected, Inconclusive (test euqz=1861) PARAINFLUENZA VIRUS 1 (BEAKER) (test Not detected Not detected, Inconclusive hbar=5625) PARAINFLUENZA VIRUS 2 (BEAKER) (test Not detected Not detected, Inconclusive bzni=3297) PARAINFLUENZA VIRUS 3 (BEAKER) (test Not detected Not detected, Inconclusive vzzz=9596) PARAINFLUENZA VIRUS 4 (BEAKER) (test Not detected Not detected, Inconclusive jwez=6656) ADENOVIRUS (BEAKER) (test lcem=9092) Not detected Not detected, Inconclusive CORONAVIRUS 229E (BEAKER) (test Not detected Not detected, Inconclusive jdel=0866) CORONAVIRUS HKU1 (BEAKER) (test Not detected Not detected, Inconclusive lcok=9798) CORONAVIRUS NL63 (BEAKER) (test Not detected Not detected, Inconclusive igjo=3712) CORONAVIRUS OC43 (BEAKER) (test Not detected Not detected, Inconclusive pkfr=1873) BORDETELLA PERTUSSIS (BEAKER) (test Not detected Not detected, Inconclusive tufw=3352) CHLAMYDOPHILA PNEUMONIAE (BEAKER) Not detected Not detected, Inconclusive (test mdrv=5979) MYCOPLASMA PNEUMONIAE (BEAKER) (test Not detected Not detected, Inconclusive xzzd=1528) [id number] 13:17:00 Test Item Value Reference Range Comments ACTIVATED CLOTTING TIME [address] [facility] [address] [facility] (BEScreen Tonic) (test ieac=958) [facility] [address] T4, [id number] 12:18:00 Test Item Value Reference Range Comments FREE T4 (BEAKER) (test czaq=172) 0.44 ng/dL 0.70-1.48 STREP PNEUMONIAE [id number] 12:03:00 Test Item Value Reference Range Comments STREP PNEUMONIAE ANTIGEN Presumptive negative for Presumptive negative for (BEAKER) (test pneumococcal pneumonia - pneumococcal pneumonia - pggs=3287) see comment see commen Presumptive negative for pneumococcal pneumonia, suggesting no current or recent pneumococcal infection. Infection due to S. pneumoniae cannot be ruled out since the antigen present in the sample may be below the detection limit of the test.LEGIONELLA ANTIGEN, [id number] 12:02:00 Test Item Value Reference Range Comments L. PNEUMOPHILA SEROGP 1 Negative - see Negative for L. UR AG (BEAKER) (test comment pneumophila serogroup 1 ubon=7247) antigen, suggesting no recent or current infection with this serogroup. Legionellosis cannot be ruled out since other serogroups and species may cause disease. URINALYSIS W/ REFLEX URINE [id number] 11:56:00 Test Item Value Reference Range Comments COLOR (BEAKER) (test wovg=408) Yellow CLARITY (BEAKER) (test yibc=649) Hazy SPECIFIC GRAVITY UA (BEAKER) (test xdkp=815) 1.019 1.001-1.035 PH UA (BEAKER) (test tlby=740) 6.0 5.0-8.0 PROTEIN UA (BEAKER) (test daxd=286) 200 mg/dL Negative GLUCOSE UA (BEAKER) (test emzl=062) 70 mg/dL Negative KETONES UA (BEAKER) (test dupk=878) Negative Negative BILIRUBIN UA (BEAKER) (test kllu=683) Negative Negative BLOOD UA (BEAKER) (test xqcy=010) Large Negative NITRITE UA (BEAKER) (test qony=073) Negative Negative LEUKOCYTE ESTERASE UA (BEAKER) (test tmvz=053) Small Negative UROBILINOGEN UA (BEAKER) (test htub=730) 0.2 mg/dL 0.2-1.0 RBC UA (BEAKER) (test dgpk=271) 0 /HPF WBC UA (BEAKER) (test wrzq=912) 10 /HPF BACTERIA (BEAKER) (test gaog=929) Occasional MUCUS (BEAKER) (test xlbs=9375) Rare SQUAMOUS EPITHELIAL (BEAKER) (test cugt=396) 1 /HPF GRANULAR CASTS (BEAKER) (test vjeh=995) 5 /LPF AMORPHOUS CRYSTALS (BEAKER) (test cqvu=1687) Rare SOURCE(BEAKER) (test yxhw=3584) LACTIC ACID, ARTERIAL, WHOLE [id number] 11:50:00 Test Item Value Reference Range Comments LACTATE BLOOD ARTERIAL (2) 3.0 mmol/L 0.5-2.2 Specimen slightly hemolyzed (BEAKER) (test pwna=5250) Effective 11/12/2015: Units/Reference Range ChangeNew: 0.5-2.2 mmol/L Previous: 5 -20 mg/dLRAD, CHEST, 1 VIEW, NON [id number] 11:30:00Reason for exam:-> LIJ CVC Placement Should [...] partially obscured but stable. Signed: Flaca Reece [facility] Verified Date/Time: 12/28/2017 11:30:56 Reading Location: [facility] Radiology Reading Room Electronically signed by: FLACA REECE M.D. on 2017 11:30 AMBLOOD GAS, [id number] 11:16:00 Test Item Value Reference Range Comments PH ARTERIAL (BEAKER) (test cyss=288) 7.32 7.35-7.45 PCO2 ARTERIAL (BEAKER) (test mnjf=041) 47 mmHg 35-45 PO2 ARTERIAL (BEAKER) (test uzoy=735) 49 mmHg 80-90 O2 SATURATION ARTERIAL (BEAKER) (test qibw=542) 82.7 % 96.0-97.0 HCO3 ARTERIAL (BEAKER) (test qvyt=797) 24 mmol/L 21-29 BASE EXCESS ARTERIAL (BEAKER) (test wftc=060) -2.9 mmol/L -2.0-3.0 PATIENT TEMPERATURE (BEAKER) (test lxrn=4256) 36.4 C FIO2 (BEAKER) (test xfbm=0891) 80.0 % GLUCOSE-STAT [id number] 11:16:00 Test Item Value Reference Range Comments GLUCOSE RANDOM (BEAKER) (test uacs=684) 113 mg/dL 70-110 POTASSIUM-STAT [id number] 11:15:00 Test Item Value Reference Range Comments POTASSIUM (BEAKER) (test mzwt=810) 4.4 meq/L 3.6-5.5 HGB/HCT (H&H) - STAT [id number] 11:15:00 Test Item Value Reference Range Comments HEMOGLOBIN (BEAKER) (test rals=255) 12.1 g/dL 12.0-15.0 HEMATOCRIT (BEAKER) (test mkuo=773) 36.0 % 36.0-45.0 OXYGEN SATURATION, [id number] 11:13:00 Test Item Value Reference Range Comments O2 SATURATION (MEASURED) (BEAKER) (test mohf=4545) 64.8 % HEMOGLOBIN [id number] 10:02:00 Test Item Value Reference Range Comments HEMOGLOBIN A1C (BEAKER) (test ablf=216) 6.4 % 4.3-6.1 [id number] 09:22:00 Test Item Value Reference Range Comments POTASSIUM (BEAKER) (test mtqb=949) 4.7 meq/L 3.5-5.1 [id number] 09:22:00 Test Item Value Reference Range Comments MAGNESIUM (BEAKER) (test yiee=413) 1.6 mg/dL 1.6-2.6 [id number] 09:22:00 Test Item Value Reference Range Comments PHOSPHORUS (BEAKER) (test dlxl=677) 5.3 mg/dL 2.3-4.7 [id number] 09:22:00 Test Item Value Reference Range Comments SODIUM (BEAKER) (test lzyg=168) 136 meq/L 136-145 [id number] 09:01:00 Test Item Value Reference Range Comments PARTIAL THROMBOPLASTIN TIME (BEAKER) (test 34.4 seconds 22.5-36.0 izvd=600) POCT-GLUCOSE [id number] 08:41:00 Test Item Value Reference Range Comments POC-GLUCOSE METER (BEAKER) 109 mg/dL 70-[address] [facility] [address] [facility] (test uggy=1907) [place] [address] BLOOD GAS, [id number] 08:36:00 Test Item Value Reference Range Comments PH ARTERIAL (BEAKER) (test wkyn=901) 7.40 7.35-7.45 PCO2 ARTERIAL (BEAKER) (test svlr=764) 36 mmHg 35-45 PO2 ARTERIAL (BEAKER) (test btzm=457) 84 mmHg 80-90 O2 SATURATION ARTERIAL (BEAKER) (test pfbv=923) 96.7 % 96.0-97.0 HCO3 ARTERIAL (BEAKER) (test ryii=518) 22 mmol/L 21-29 BASE EXCESS ARTERIAL (BEAKER) (test eymh=062) -2.6 mmol/L -2.0-3.0 PATIENT TEMPERATURE (BEAKER) (test nkah=6155) 36.1 C FIO2 (BEAKER) (test euzp=9338) 50.0 % CALCIUM, [id number] 08:35:00 Test Item Value Reference Range Comments CALCIUM IONIZED (BEAKER) (test ssut=065) 1.19 mmol/L 1.12-1.27 PH, BLOOD (BEAKER) (test kscw=3384) 7.38 PH, [id number] 08:34:00 Test Item Value Reference Range Comments PH ARTERIAL (BEAKER) (test xchr=755) 7.40 7.35-7.45 OXYGEN SATURATION, [id number] 08:32:00 Test Item Value Reference Range Comments O2 SATURATION (MEASURED) (BEAKER) (test xter=9104) 34.6 % TSH/FREE T4 IF [id number] 06:24:00 Test Item Value Reference Range Comments THYROID STIMULATING HORMONE (BEAKER) (test 0.34 uIU/mL 0.35-4.94 qwre=168) BASIC METABOLIC [id number] 06:04:00 Test Item Value Reference Range Comments SODIUM (BEAKER) (test 135 meq/L 136-145 tuyt=645) POTASSIUM (BEAKER) (test 3.7 meq/L 3.5-5.1 klmh=055) CHLORIDE (BEAKER) (test 100 meq/L 98-107 krfl=777) CO2 (BEAKER) (test 20 meq/L 22-29 yicd=681) BLOOD UREA NITROGEN 37 mg/dL 7-21 (BEAKER) (test eduy=949) CREATININE (BEAKER) (test 2.95 mg/dL 0.57-1.25 ifxr=388) GLUCOSE RANDOM (BEAKER) 169 mg/dL 70-105 (test ucvi=072) CALCIUM (BEAKER) (test 8.3 mg/dL 8.4-10.2 pvon=929) EGFR (BEAKER) (test mL/min/1.73 sq m INSUFFICIENT CLINICAL DATA yzdp=9310) TO CALCULATE ESTIMATED GFR. BLOOD GAS, [id number] 05:52:00 Test Item Value Reference Range Comments PH ARTERIAL (BEAKER) (test gznb=737) 7.32 7.35-7.45 PCO2 ARTERIAL (BEAKER) (test fqeu=401) 44 mmHg 35-45 PO2 ARTERIAL (BEAKER) (test vffd=004) 80 mmHg 80-90 O2 SATURATION ARTERIAL (BEAKER) (test chhc=497) 95.0 % 96.0-97.0 HCO3 ARTERIAL (BEAKER) (test kogo=501) 22 mmol/L 21-29 BASE EXCESS ARTERIAL (BEAKER) (test wpoy=833) -3.8 mmol/L -2.0-3.0 PATIENT TEMPERATURE (BEAKER) (test qjey=2942) 36.9 C FIO2 (BEAKER) (test ahmw=2215) 90.0 % GLUCOSE-STAT [id number] 05:52:00 Test Item Value Reference Range Comments GLUCOSE RANDOM (BEAKER) (test zpvy=293) 159 mg/dL 70-110 CALCIUM, [id number] 05:52:00 Test Item Value Reference Range Comments CALCIUM IONIZED (BEAKER) (test beub=706) 1.08 mmol/L 1.12-1.27 PH, BLOOD (BEAKER) (test iynq=8483) 7.32 BLOOD GAS, [id number] 04:02:00 Test Item Value Reference Range Comments PH ARTERIAL (BEAKER) (test heny=706) 7.30 7.35-7.45 PCO2 ARTERIAL (BEAKER) (test cnbs=031) 48 mmHg 35-45 PO2 ARTERIAL (BEAKER) (test qirx=543) 70 mmHg 80-90 O2 SATURATION ARTERIAL (BEAKER) (test eqiv=974) 92.6 % 96.0-97.0 HCO3 ARTERIAL (BEAKER) (test msys=114) 23 mmol/L 21-29 BASE EXCESS ARTERIAL (BEAKER) (test mkxh=225) -3.5 mmol/L -2.0-3.0 PATIENT TEMPERATURE (BEAKER) (test ehzz=1277) 36.8 C FIO2 (BEAKER) (test lllq=7420) 90.0 % GLUCOSE-STAT [id number] 04:02:00 Test Item Value Reference Range Comments GLUCOSE RANDOM (BEAKER) (test uafg=259) 213 mg/dL 70-110 CALCIUM, [id number] 04:01:00 Test Item Value Reference Range Comments CALCIUM IONIZED (BEAKER) (test cjfm=746) 1.03 mmol/L 1.12-1.27 PH, BLOOD (BEAKER) (test kczg=0089) 7.30 COMPREHENSIVE METABOLIC [id number] 02:46:00 Test Item Value Reference Range Comments TOTAL PROTEIN (BEAKER) 4.8 gm/dL 6.0-8.3 (test bmxf=088) ALBUMIN (BEAKER) (test 2.4 g/dL 3.5-5.0 xnsm=5275) ALKALINE PHOSPHATASE 45 U/L 40-150 (BEAKER) (test usnr=750) BILIRUBIN TOTAL (BEAKER) 0.4 mg/dL 0.2-1.2 (test jduq=250) SODIUM (BEAKER) (test 134 meq/L 136-145 grqb=204) POTASSIUM (BEAKER) (test 3.7 meq/L 3.5-5.1 fdhr=719) CHLORIDE (BEAKER) (test 96 meq/L 98-107 zwor=574) CO2 (BEAKER) (test 20 meq/L 22-29 pjpr=427) BLOOD UREA NITROGEN 38 mg/dL 7-21 (BEAKER) (test qdri=121) CREATININE (BEAKER) (test 3.49 mg/dL 0.57-1.25 qaww=616) GLUCOSE RANDOM (BEAKER) 276 mg/dL 70-105 (test sxfo=712) CALCIUM (BEAKER) (test 8.0 mg/dL 8.4-10.2 yedf=476) AST (SGOT) (BEAKER) (test 34 U/L 5-34 fdet=179) ALT (SGPT) (BEAKER) (test 14 U/L 6-55 rwrp=909) EGFR (BEAKER) (test mL/min/1.73 sq m INSUFFICIENT CLINICAL DATA cich=6544) TO CALCULATE ESTIMATED GFR. [id number] 02:39:00 Test Item Value Reference Range Comments GLUCOSE RANDOM (BEAKER) (test boml=334) 276 mg/dL 70-105 LACTATE DEHYDROGENASE (LDH)[id number] 02:39:00 Test Item Value Reference Range Comments LACTATE DEHYDROGENASE (BEAKER) (test csmu=936) 369 U/L 125-220 HEPATIC FUNCTION [id number] 02:39:00 Test Item Value Reference Range Comments TOTAL PROTEIN (BEAKER) (test rtvi=346) 4.8 gm/dL 6.0-8.3 ALBUMIN (BEAKER) (test jtgz=9713) 2.4 g/dL 3.5-5.0 BILIRUBIN TOTAL (BEAKER) (test cvrj=993) 0.4 mg/dL 0.2-1.2 BILIRUBIN DIRECT (BEAKER) (test dnwq=846) 0.3 mg/dL 0.1-0.5 ALKALINE PHOSPHATASE (BEAKER) (test yufm=230) 45 U/L 40-150 AST (SGOT) (BEAKER) (test wdze=954) 34 U/L 5-34 ALT (SGPT) (BEAKER) (test uonu=980) 14 U/L 6-55 LACTIC ACID, ARTERIAL, WHOLE [id number] 02:34:00 Test Item Value Reference Range Comments LACTATE BLOOD ARTERIAL (2) 5.8 mmol/L 0.5-2.2 Specimen slightly hemolyzed (BEAKER) (test eryi=0927) Effective 11/12/2015: Units/Reference Range ChangeNew: 0.5-2.2 mmol/L Previous: 5 -20 mg/dLCBC W/PLT COUNT & AUTO [id number] 02:31:00 Test Item Value Reference Range Comments WHITE BLOOD CELL COUNT (BEAKER) (test frcv=234) 11.0 K/ L 3.5-10.5 RED BLOOD CELL COUNT (BEAKER) (test doxn=304) 3.83 M/ L 3.93-5.22 HEMOGLOBIN (BEAKER) (test tloc=549) 11.5 GM/DL 11.2-15.7 HEMATOCRIT (BEAKER) (test sgkf=732) 35.7 % 34.1-44.9 MEAN CORPUSCULAR VOLUME (BEAKER) (test wjmm=471) 93.2 fL 79.4-94.8 MEAN CORPUSCULAR HEMOGLOBIN (BEAKER) (test 30.0 pg 25.6-32.2 qknt=698) MEAN CORPUSCULAR HEMOGLOBIN CONC (BEAKER) (test 32.2 GM/DL 32.2-35.5 sbsn=550) RED CELL DISTRIBUTION WIDTH (BEAKER) (test 15.1 % 11.7-14.4 avcv=241) PLATELET COUNT (BEAKER) (test lkxt=947) 185 K/CU MM 150-450 MEAN PLATELET VOLUME (BEAKER) (test hqkf=762) 9.7 fL 9.4-12.3 NUCLEATED RED BLOOD CELLS (BEAKER) (test 1 /100 WBC 0-0 ftfb=921) NEUTROPHILS RELATIVE PERCENT (BEAKER) (test 82 % gmzq=549) LYMPHOCYTES RELATIVE PERCENT (BEAKER) (test 3 % aiow=303) MONOCYTES RELATIVE PERCENT (BEAKER) (test 8 % agdh=099) EOSINOPHILS RELATIVE PERCENT (BEAKER) (test 0 % jmdj=787) BASOPHILS RELATIVE PERCENT (BEAKER) (test 1 % rrid=747) NEUTROPHILS ABSOLUTE COUNT (BEAKER) (test 9.00 K/ L 1.56-6.13 uprt=914) LYMPHOCYTES ABSOLUTE COUNT (BEAKER) (test 0.34 K/ L 1.18-3.74 bwxk=888) MONOCYTES ABSOLUTE COUNT (BEAKER) (test 0.86 K/ L 0.24-0.36 cyfj=198) EOSINOPHILS ABSOLUTE COUNT (BEAKER) (test 0.01 K/ L 0.04-0.36 pojq=272) BASOPHILS ABSOLUTE COUNT (BEAKER) (test 0.07 K/ L 0.01-0.08 bumb=196) IMMATURE GRANULOCYTES-RELATIVE PERCENT (BEAKER) 6 % 0-1 (test wrlx=7767) BLOOD GAS, [id number] 02:23:00 Test Item Value Reference Range Comments PH ARTERIAL (BEAKER) (test lqfs=016) 7.31 7.35-7.45 PCO2 ARTERIAL (BEAKER) (test ndai=710) 46 mmHg 35-45 PO2 ARTERIAL (BEAKER) (test bmjz=190) 75 mmHg 80-90 O2 SATURATION ARTERIAL (BEAKER) (test jbve=189) 93.3 % 96.0-97.0 HCO3 ARTERIAL (BEAKER) (test lblw=942) 22 mmol/L 21-29 BASE EXCESS ARTERIAL (BEAKER) (test maaz=958) -4.0 mmol/L -2.0-3.0 PATIENT TEMPERATURE (BEAKER) (test jrey=4043) 37.4 C FIO2 (BEAKER) (test bibk=8552) 80.0 % RAD, CHEST, 1 VIEW, NON [id number] 01:36:00Reason for exam:->central line placement Should this be performed at the bedside?->YesFINAL REPORT Comparison exam: 12/27/2017 Left pleural effusion unchanged. No pneumothorax. Stable cardiomediastinal contours. Appropriate position of the support hardware. Signed: Cash Cole MDReport Verified Date/ Time: 12/28/2017 01:36:56 Reading Location: [facility] C0[facility] Ortho Consult Reading Room HCG, QUANTITATIVE, [id number] 00:08:00 Test Item Value Reference Range Comments GONADOTROPIN, CHORIONIC (HCG) QUANT (BEAKER) (test < mIU/mL 0-10 dnia=419) Non- Females: <10 mIU/mL Females: Gestation Age Reference Range(mIU/mL) 0.2-1 Week 5-50 1-2 Weeks 50-500 2-3 Weeks 100-5,000 3-4Weeks 500-10,000 4 -5 Weeks 1,000-50,000 5-6 Weeks 10,000-100,000 6-8 Weeks 15,000-200,000 2-3 Months 10,000-100,000BLOOD GAS, [id number] 00:01:00 Test Item Value Reference Range Comments PH ARTERIAL (BEAKER) (test qjac=564) 7.24 7.35-7.45 PCO2 ARTERIAL (BEAKER) (test qlbf=973) 44 mmHg 35-45 PO2 ARTERIAL (BEAKER) (test loot=486) 75 mmHg 80-90 O2 SATURATION ARTERIAL (BEAKER) (test ktze=759) 93.3 % 96.0-97.0 HCO3 ARTERIAL (BEAKER) (test sjyi=553) 19 mmol/L 21-29 BASE EXCESS ARTERIAL (BEAKER) (test ojew=017) -8.7 mmol/L -2.0-3.0 PATIENT TEMPERATURE (BEAKER) (test olaz=1470) 36.3 C FIO2 (BEAKER) (test zsev=0426) 100.0 % GLUCOSE-STAT [id number] 00:01:00 Test Item Value Reference Range Comments GLUCOSE RANDOM (BEAKER) (test cwok=259) 284 mg/dL 70-110 CALCIUM, [id number] 00:01:00 Test Item Value Reference Range Comments CALCIUM IONIZED (BEAKER) (test kuek=139) 0.97 mmol/L 1.12-1.27 PH, BLOOD (BEAKER) (test hzag=8872) 7.23 VANCOMYCIN LEVEL, [id number] 23:55:00 Test Item Value Reference Range Comments VANCOMYCIN RANDOM (BEAKER) (test tzwr=562) 18.6 ug/mL Reference Range: No NormalsCBC W/PLT COUNT & AUTO [id number] 23: 54:00 Test Item Value Reference Range Comments WHITE BLOOD CELL COUNT (BEAKER) (test cfqt=168) 13.2 K/ L 3.5-10.5 RED BLOOD CELL COUNT (BEAKER) (test kbpr=418) 3.80 M/ L 3.93-5.22 HEMOGLOBIN (BEAKER) (test cqpv=225) 11.5 GM/DL 11.2-15.7 HEMATOCRIT (BEAKER) (test xhah=447) 36.5 % 34.1-44.9 MEAN CORPUSCULAR VOLUME (BEAKER) (test izvw=139) 96.1 fL 79.4-94.8 MEAN CORPUSCULAR HEMOGLOBIN (BEAKER) (test 30.3 pg 25.6-32.2 gkzj=486) MEAN CORPUSCULAR HEMOGLOBIN CONC (BEAKER) (test 31.5 GM/DL 32.2-35.5 ssil=997) RED CELL DISTRIBUTION WIDTH (BEAKER) (test 15.3 % 11.7-14.4 uvcl=709) PLATELET COUNT (BEAKER) (test fupy=417) 205 K/CU MM 150-450 MEAN PLATELET VOLUME (BEAKER) (test bqds=129) 10.0 fL 9.4-12.3 NUCLEATED RED BLOOD CELLS (BEAKER) (test 1 /100 WBC 0-0 hjex=370) NEUTROPHILS RELATIVE PERCENT (BEAKER) (test 81 % mndy=055) LYMPHOCYTES RELATIVE PERCENT (BEAKER) (test 3 % howw=917) MONOCYTES RELATIVE PERCENT (BEAKER) (test 11 % lyju=928) EOSINOPHILS RELATIVE PERCENT (BEAKER) (test 0 % hfzc=519) BASOPHILS RELATIVE PERCENT (BEAKER) (test 0 % wlkq=816) NEUTROPHILS ABSOLUTE COUNT (BEAKER) (test 10.69 K/ L 1.56-6.13 fmjt=913) LYMPHOCYTES ABSOLUTE COUNT (BEAKER) (test 0.43 K/ L 1.18-3.74 xhhs=350) MONOCYTES ABSOLUTE COUNT (BEAKER) (test 1.39 K/ L 0.24-0.36 kbhu=917) EOSINOPHILS ABSOLUTE COUNT (BEAKER) (test 0.02 K/ L 0.04-0.36 fjml=319) BASOPHILS ABSOLUTE COUNT (BEAKER) (test 0.02 K/ L 0.01-0.08 xots=246) IMMATURE GRANULOCYTES-RELATIVE PERCENT (BEAKER) 5 % 0-1 (test ltti=8464) RAD, CHEST, 1 VIEW, NON [id number] 23:41:00Reason for exam:->Respiratory Distress/new admissionShould this be [...] MDReport Verified Date/Time: 12/27/2017 23:41:55 Reading Location: [address] Consult Reading Room BASIC METABOLIC [id number] 23:40:00 Test Item Value Reference Range Comments SODIUM (BEAKER) (test 130 meq/L 136-145 alfa=315) POTASSIUM (BEAKER) (test 3.9 meq/L 3.5-5.1 lrcn=261) CHLORIDE (BEAKER) (test 97 meq/L 98-107 osmy=915) CO2 (BEAKER) (test 15 meq/L 22-29 arab=891) BLOOD UREA NITROGEN 36 mg/dL 7-21 (BEAKER) (test ahlz=967) CREATININE (BEAKER) (test 3.60 mg/dL 0.57-1.25 zldm=526) GLUCOSE RANDOM (BEAKER) 326 mg/dL 70-105 (test qjkl=384) CALCIUM (BEAKER) (test 6.7 mg/dL 8.4-10.2 zchh=598) EGFR (BEAKER) (test mL/min/1.73 sq m INSUFFICIENT CLINICAL DATA kygu=9030) TO CALCULATE ESTIMATED GFR. [id number] 23:09:00 Test Item Value Reference Range Comments PHOSPHORUS (BEAKER) (test imka=431) 7.9 mg/dL 2.3-4.7 [id number] 23:09:00 Test Item Value Reference Range Comments MAGNESIUM (BEAKER) (test ewjt=029) 1.7 mg/dL 1.6-2.6 HEPATIC FUNCTION [id number] 23:09:00 Test Item Value Reference Range Comments TOTAL PROTEIN (BEAKER) (test aoju=980) 5.1 gm/dL 6.0-8.3 ALBUMIN (BEAKER) (test xtwn=1227) 2.7 g/dL 3.5-5.0 BILIRUBIN TOTAL (BEAKER) (test hinn=645) 0.3 mg/dL 0.2-1.2 BILIRUBIN DIRECT (BEAKER) (test wlmm=969) 0.3 mg/dL 0.1-0.5 ALKALINE PHOSPHATASE (BEAKER) (test ythz=746) 49 U/L 40-150 AST (SGOT) (BEAKER) (test mapb=967) 20 U/L 5-34 ALT (SGPT) (BEAKER) (test pfrc=493) 9 U/L 6-55 LACTATE DEHYDROGENASE (LDH)2017-12-27 23:09:00 Test Item Value Reference Range Comments LACTATE DEHYDROGENASE (BEAKER) (test iebt=804) 375 U/L 125-220 LACTIC ACID, ARTERIAL, WHOLE [id number] 23:02:00 Test Item Value Reference Range Comments LACTATE BLOOD ARTERIAL (2) (BEAKER) (test 5.9 mmol/L 0.5-2.2 oxkb=4329) Effective 11/12/2015: Units/Reference Range ChangeNew: 0.5-2.2 mmol/L Previous: 5 -20 mg/dLPT/[id number] 23:01:00 Test Item Value Reference Range Comments PROTIME (BEAKER) (test vmeh=088) 17.0 seconds 11.7-14.7 INR (BEAKER) (test fldy=258) 1.4 <=5.9 PARTIAL THROMBOPLASTIN TIME (BEAKER) (test 35.5 seconds 22.5-36.0 yqyj=067) RECOMMENDED COUMADIN/WARFARIN INR THERAPY RANGESSTANDARD DOSE: 2.0 - 3.0 Includes: PROPHYLAXIS forvenous thrombosis, systemic embolization; TREATMENT for venous thrombosis and/or pulmonary embolus.HIGH RISK: Target INR is 2.5-3.5 for patients with mechanical heart valves.[id number] 23:00:00 Test Item Value Reference Range Comments FIBRINOGEN LEVEL (BEAKER) (test pbkk=709) 616 mg/dl 225-434 BLOOD GAS, [id number] 22:50:00 Test Item Value Reference Range Comments PH ARTERIAL (BEAKER) (test wxbp=397) 7.16 7.35-7.45 PCO2 ARTERIAL (BEAKER) (test fcih=821) 48 mmHg 35-45 PO2 ARTERIAL (BEAKER) (test tovw=998) 73 mmHg 80-90 O2 SATURATION ARTERIAL (BEAKER) (test ielt=777) 89.1 % 96.0-97.0 HCO3 ARTERIAL (BEAKER) (test mwiy=467) 17 mmol/L 21-29 BASE EXCESS ARTERIAL (BEAKER) (test hlpc=514) -11.7 mmol/L -2.0-3.0 PATIENT TEMPERATURE (BEAKER) (test idbv=2084) 37.7 C FIO2 (BEAKER) (test cgmm=7912) 100.0 % OXYGEN SATURATION, [id number] 22:49:00 Test Item Value Reference Range Comments O2 SATURATION (MEASURED) (BEAKER) (test livi=0193) 56.9 % POTASSIUM-STAT [id number] 22:47:00 Test Item Value Reference Range Comments POTASSIUM (BEAKER) (test jcyn=147) 3.8 meq/L 3.6-5.5 HGB/HCT (H&H) - STAT [id number] 22:47:00 Test Item Value Reference Range Comments HEMOGLOBIN (BEAKER) (test ofvd=236) 12.5 g/dL 12.0-15.0 HEMATOCRIT (BEAKER) (test gaax=806) 37.0 % 36.0-45.0 CALCIUM, [id number] 22:47:00 Test Item Value Reference Range Comments CALCIUM IONIZED (BEAKER) (test ahri=258) 0.91 mmol/L 1.12-1.27 PH, BLOOD (BEAKER) (test huci=1975) 7.16 SODIUM NA-STAT [id number] 22:47:00 Test Item Value Reference Range Comments SODIUM (BEAKER) (test onmw=285) 128 meq/L 135-148 GLUCOSE-STAT [id number] 22:47:00 Test Item Value Reference Range Comments GLUCOSE RANDOM (BEAKER) (test idxo=183) 303 mg/dL 70-110
[2018-03-21] MEDS ORDERED: NA CHLORIDE 0.9% 1,000 ML ONE ×2 (12:57→16:13)
[2018-03-21] MEDS ORDERED: ONDANSETRON 4 MG/2 ML VIAL ONE ×2 (13:09→16:13)
[2018-03-21 13:15] LABS: Absolute Lymphocytes (CBC) 2.7 K/uL (0.7-4.9); Absolute Monocytes 1.6 K/uL (0.1-1.3); Basophils % 0.4 % (0-1.3); Eosinophils % 1.8 % (0-4.4); Hematocrit 32.9 % (36.0-45.0); Lymphocytes % 28.4 % (15.3-44.8); MCH 29.7 pg (27.0-35.0); MCV 90.6 fL (80-100); Monocytes % 16.7 % (3.3-12.3); Protime INR 1.07; RBC Red Blood Cell Count 3.63 M/uL (3.86-4.86)
[2018-03-21 13:34] LABS: AST/SGOT 13 U/L (15-37); Albumin 2.1 g/dL (3.4-5.0); Alkaline Phosphatase 61 U/L (45-117); BUN Blood Urea Nitrogen 8 mg/dL (7-18); Bicarbonate 29 mmol/L (21-32); Bilirubin Direct < 0.1 mg/dL (0-0.2); Bilirubin Total 0.3 mg/dL (0.2-1.0); CKMB Creatine Kinase MB < 1.0 ng/mL (0.3-3.6); Creatine Phosphokinase 17 U/L (26-192); Glucose Level 81 mg/dL (74-106); Lipase 33 U/L (73-393); Magnesium 2.3 mg/dL (1.8-2.4); NT PRO-BNP 868 pg/mL (<125); Potassium 3.4 mmol/L (3.5-5.1); Protein, Total 7.3 g/dL (6.4-8.2); Sodium Level 143 mmol/L (136-145); Troponin (Emerg Dept Use Only) < 0.02 ng/mL (0.0-0.045)
[2018-03-21 13:35] LABS: ALT/SGPT < 6 U/L (12-78)
[2018-03-21 13:37] LABS: Blood Morphology Comment NOT SEEN (NOT SEEN); Platelet Estimate ADEQ; Urine White Blood Cell Casts OK
--- NOTE | 2018-03-21 14:55 | ER ---
Nurse's Notes [facility] Name: Jaycee Veliz Age: 47 yrs Sex: Female : 1970 Arrival Date: 03/21/2018 Time: 12:19 Bed 2 Private MD: Chino Blanco E Diagnosis: Chest pain on breathing;Cardiomegaly;Hypokalemia Presentation: 03/21 12:36 Presenting complaint: Patient states: has had chest pain 10/10 X 2 days, pain iw aggravated by deep breathing and lying back, also has SOB and cough, hx of DVT, on Coumadin, also appears pale and sweaty, no fever. Transition of care: patient was not received from another setting of care. Onset of symptoms was March 19, 2018. Risk Assessment: Do you want to hurt yourself or someone else? Patient reports no desire to harm self or others. Initial Sepsis Screen: Does the patient meet any 2 criteria? No. Patient's initial sepsis screen is negative. Does the patient have a suspected source of infection? No. Patient's initial sepsis screen is negative. Care prior to arrival: None. 12:36 Method Of Arrival: Wheelchair iw 12:36 Acuity: DANA 2 iw Historical: - Allergies: 12:40 Hydrocodone-Acetaminophen; iw - Home Meds: 12:59 albuterol sulfate 2.5 mg /3 mL (0.083 %) Nebulizer nebu 3 mL every 6 hours [Active]; iw amoxicillin-pot clavulanate 875-125 mg Oral tab 1 tab every 12 hours [Active]; levofloxacin 500 mg Oral tab 1 tab once daily [Active]; alprazolam 1 mg Oral tab twice a day [Active]; citalopram 40 mg tab 1 tab once daily [Active]; Coumadin 2.5 mg Oral tab 1 tab once daily [Active]; Depakote 500 mg Oral TbEC 1 tab 3 times per day [Active]; gabapentin 300 mg oral cap twice a day [Active]; levothyroxine 50 mcg tab 1 tab once daily [Active]; ondansetron HCl 8 mg Oral tab every 6 hours [Active]; quetiapine 300 mg oral tab nightly [Active]; - PMHx: 12:40 Back pain; Bipolar disorder; herniated disk; Hypothyroidism; restless leg syndrome; iw - PSHx: 12:40 ; iw 14:50 Tubal ligation; iw - Immunization history:: Adult Immunizations up to date. - Family history:: not pertinent. - Ebola Screening: : Patient negative for fever greater than or equal to 101.5 degrees Fahrenheit, and additional compatible Ebola Virus Disease symptoms Patient denies exposure to infectious person Patient denies travel to an Ebola-affected area in the 21 days before illness onset No symptoms or risks identified at this time. - Social history:: Smoking status: Patient/guardian denies using tobacco. Screenin:00 Abuse screen: Denies threats or abuse. Denies injuries from another. Nutritional sg screening: No deficits noted. Tuberculosis screening: No symptoms or risk factors identified. Never had TB. Fall Risk None identified. Assessment: 13:00 General: Appears in no apparent distress. uncomfortable, ill, well groomed, well sg developed, well nourished, Behavior is calm, cooperative, appropriate for age. Pain: Complains of pain in chest Pain does not radiate. Quality of pain is described as sharp, stabbing. Neuro: Level of Consciousness is awake, alert, obeys commands, Oriented to person, place, time, Speech is normal, Facial symmetry appears normal. Cardiovascular: Capillary refill is brisk in bilateral fingers Patient's skin is warm and dry. Chest pain quality is sharp, stabbing. Respiratory: Reports pain with respiration Airway is patent Respiratory effort is even, unlabored, Respiratory pattern is regular, symmetrical, Breath sounds are coarse Breath sounds are diminished in right posterior middle lobe and right posterior lower lobe Denies cough, shortness of breath. GI: Abdomen is round non-distended, Reports tolerance of fluids, tolerance of food, decreased appetite. : No signs and/or symptoms were reported regarding the genitourinary system. Reports wounds to left inner thigh. EENT: No signs and/or symptoms were reported regarding the EENT system. Derm: Reports wounds to left inner thigh, that are chronic and being treated at home by home health and provider. Musculoskeletal: No signs and/or symptoms reported regarding the musculoskeletal system. 16:21 Reassessment: Patient appears in no apparent distress at this time. Patient and/or sg family updated on plan of care and expected duration. Pain level reassessed. Patient is alert, oriented x 3, equal unlabored respirations, skin warm/dry/pink. ultrasound at bedside at this time. 19:43 General: Appears in no apparent distress. Behavior is calm, cooperative, appropriate ea for age. Pain: Denies pain. Neuro: Level of Consciousness is awake, alert, obeys commands, Oriented to person, place, time. Cardiovascular: Patient's skin is warm and dry. Respiratory: Airway is patent Respiratory effort is even, unlabored, Respiratory pattern is regular, symmetrical. GI: Abdomen is non-distended, Bowel sounds present X 4 quads. : No signs and/or symptoms were reported regarding the genitourinary system. Derm: Reports wound to left groin and left great toe. Musculoskeletal: No signs and/or symptoms reported regarding the musculoskeletal system. 19:48 Reassessment: Report called to Bandar DELGADO on second floor. ea Vital Signs: 12:41 BP 127 / 87; Pulse 83; Resp 20 S; Pulse Ox 95% on R/A; iw 15:15 Weight 106.59 kg (R); sg 18:24 BP 132 / 72; Pulse 80; Resp 20 S; Temp 99.0; Pulse Ox 100% on 3 lpm NC; Pain 3/10; iw 19:32 BP 130 / 93; Pulse 74; Resp 15; Pulse Ox 96% ; Pain 0/10; ea ED Course: 12:19 Patient arrived in ED. rg4 12:20 Chino Blanco MD is Private Physician. rg4 12:22 Mango Traore MD is Attending Physician. sg 12:27 Javi Arango, RN is Primary Nurse. sg 12:38 EKG done, by retail pharmacy technician. reviewed by Mango Traore MD. sm3 12:39 Triage completed. iw 12:40 Initial lab(s) drawn, by me. Inserted saline lock: 20 gauge in right antecubital area, jb1 using aseptic technique. Blood collected. 12:40 Inserted saline lock: 20 gauge in left antecubital area, using aseptic technique. jb1 13:00 Patient has correct armband on for positive identification. Bed in low position. Call sg light in reach. Side rails up X2. library monitor on. Pulse ox on. NIBP on. Warm blanket given. Verbal reassurance given. Head of bed elevated. 13:30 No provider procedures requiring assistance completed. Patient admitted, IV remains in sg place. intact, No redness/swelling at site. Oxygen administration via nasal cannula \T\ 3L/min Response to oxygen therapy: symptoms improved. 13:54 Radiology exam delayed due to test not completed at this time. vr 13:58 X-ray completed. Portable x-ray completed in exam room. jr1 13:59 XRAY Chest (1 view) In Process Unspecified. EDMS 14:41 Radiology exam delayed due to test not completed at this time. jg6 14:53 Aleah Mays MD is Hospitalizing Provider. aron 15:02 CT Chest For PE Angio In Process Unspecified. EDMS 15:46 2D Echocardiogram with Doppler done by Government Contracts Manager. dt2 16:31 Ultrasound completed. Patient tolerated well. Note: done bedside. lc3 18:22 Arm band placed on. sg Administered Medications: Discontinued: NS 0.9% 1000 ml IV at 1 bolus Per protocol; 1000 mL bolus 13:11 Drug: NS 0.9% 1000 ml Route: IV; Rate: 1 bolus; Site: left antecubital; sg 13:11 Drug: Zofran 4 mg Route: IVP; Site: left antecubital; sg 14:00 Follow up: Response: No adverse reaction; Nausea is decreased sg 16:20 Drug: Lovenox 1 mg/kg Route: Sub-Q; Site: left lower abdomen; sg 19:51 Follow up: Response: No adverse reaction ea 16:20 Drug: Pepcid 20 mg Route: IVP; Site: left antecubital; sg 19:51 Follow up: Response: No adverse reaction ea 16:20 Drug: Aspirin Chewable Tablet 162 mg Route: PO; sg 17:45 Follow up: Response: No adverse reaction sg 16:20 Drug: morphine 4 mg Route: IVP; Site: left antecubital; sg 17:00 Follow up: Response: No adverse reaction; Pain is decreased sg 16:21 Drug: Potassium Effervescent Tablet 25 mEq Route: PO; sg 19:51 Follow up: Response: No adverse reaction ea 16:21 Drug: NS 0.9% 1000 ml Route: IV; Rate: 75 ml/hr; Site: left antecubital; sg 19:50 Follow up: Response: No adverse reaction; IV Status: Infusion continued upon admission ea 17:00 Drug: levofloxacin 500 mg Volume: 100 ml; Route: IVPB; Infused Over: 60 mins; Site: sg left antecubital; 19:49 Follow up: Response: No adverse reaction; IV Status: Infusion continued upon admission ea Outcome: 14:55 Decision to Hospitalize by Provider. aron 18:26 Admitted to Med/surg accompanied by tech, via stretcher, with oxygen, with chart. sg 18:26 Condition: stable 18:26 Instructed on the need for admit, safety practices, Demonstrated understanding of instructions. 18:32 Admitted to Report called to Nubia DELGADO sg 20:09 Patient left the ED. ea Signatures: Dispatcher [employer] EDSukh Ponce jb1 Javi Arango, RN RN Mango Tuttle MD MD cha Ringgold, Jaycee jr1 Nirali Padilla, RN RN Emily Terrell, Kelly Howard4 Sabine Montgomery RN RN Nataliya Conte dt2 Tarah Medrano3 Carrie Herrg6
--- NOTE | 2018-03-21 14:55 | EDPHYS ---
Physician Documentation [facility] Name: Jaycee Veliz Age: 47 yrs Sex: Female : 1970 Arrival Date: 03/21/2018 Time: 12:19 Bed 2 Private MD: Chino Blanco E ED Physician Mango Traore HPI: 03/21 12:36 This 47 yrs old Female presents to ER via Unassigned with complaints of Chest aron Pain. 12:36 The patient or guardian reports chest pain that is located primarily in the substernal aron area, anterior chest wall, right. Onset: 5 day(s) ago. The pain does not radiate. Associated signs and symptoms: The patient has no apparent associated signs or symptoms. The chest pain is described as sharp. Severity of pain: At its worst the pain was moderate in the emergency department the pain is unchanged. Historical: - Allergies: 12:40 Hydrocodone-Acetaminophen; iw - Home Meds: 12:59 albuterol sulfate 2.5 mg /3 mL (0.083 %) Nebulizer nebu 3 mL every 6 hours [Active]; iw amoxicillin-pot clavulanate 875-125 mg Oral tab 1 tab every 12 hours [Active]; levofloxacin 500 mg Oral tab 1 tab once daily [Active]; alprazolam 1 mg Oral tab twice a day [Active]; citalopram 40 mg tab 1 tab once daily [Active]; Coumadin 2.5 mg Oral tab 1 tab once daily [Active]; Depakote 500 mg Oral TbEC 1 tab 3 times per day [Active]; gabapentin 300 mg oral cap twice a day [Active]; levothyroxine 50 mcg tab 1 tab once daily [Active]; ondansetron HCl 8 mg Oral tab every 6 hours [Active]; quetiapine 300 mg oral tab nightly [Active]; - PMHx: 12:40 Back pain; Bipolar disorder; herniated disk; Hypothyroidism; restless leg syndrome; iw - PSHx: 12:40 ; iw 14:50 Tubal ligation; iw - Immunization history:: Adult Immunizations up to date. - Family history:: not pertinent. - Ebola Screening: : Patient negative for fever greater than or equal to 101.5 degrees Fahrenheit, and additional compatible Ebola Virus Disease symptoms Patient denies exposure to infectious person Patient denies travel to an Ebola-affected area in the 21 days before illness onset No symptoms or risks identified at this time. - Social history:: Smoking status: Patient/guardian denies using tobacco. ROS: 12:36 Constitutional: Negative for fever, chills, and weight loss, Eyes: Negative for injury, aron pain, redness, and discharge, ENT: Negative for injury, pain, and discharge, Neck: Negative for injury, pain, and swelling, Abdomen/GI: Negative for abdominal pain, nausea, vomiting, diarrhea, and constipation, Back: Negative for injury and pain, : Negative for injury, bleeding, discharge, and swelling, MS/Extremity: Negative for injury and deformity, Skin: Negative for injury, rash, and discoloration, Neuro: Negative for headache, weakness, numbness, tingling, and seizure, Psych: Negative for depression, anxiety, suicide ideation, homicidal ideation, and hallucinations, Allergy/Immunology: Negative for hives, rash, and allergies, Endocrine: Negative for neck swelling, polydipsia, polyuria, polyphagia, and marked weight changes, Hematologic/Lymphatic: Negative for swollen nodes, abnormal bleeding, and unusual bruising. 12:36 Cardiovascular: Positive for chest pain, palpitations. 12:36 Respiratory: Positive for cough, shortness of breath, at rest. Exam: 12:36 Constitutional: This is a well developed, well nourished patient who is awake, alert, aron and in no acute distress. Head/Face: Normocephalic, atraumatic. Eyes: Pupils equal round and reactive to light, extra-ocular motions intact. Lids and lashes normal. Conjunctiva and sclera are non-icteric and not injected. Cornea within normal limits. Periorbital areas with no swelling, redness, or edema. ENT: Nares patent. No nasal discharge, no septal abnormalities noted. Tympanic membranes are normal and external auditory canals are clear. Oropharynx with no redness, swelling, or masses, exudates, or evidence of obstruction, uvula midline. Mucous membranes moist. Neck: Trachea midline, no thyromegaly or masses palpated, and no cervical lymphadenopathy. Supple, full range of motion without nuchal rigidity, or vertebral point tenderness. No Meningismus. Chest/axilla: Normal chest wall appearance and motion. Nontender with no deformity. No lesions are appreciated. Cardiovascular: Regular rate and rhythm with a normal S1 and S2. No gallops, murmurs, or rubs. Normal PMI, no JVD. No pulse deficits. Abdomen/GI: Soft, non-tender, with normal bowel sounds. No distension or tympany. No guarding or rebound. No evidence of tenderness throughout. Back: No spinal tenderness. No costovertebral tenderness. Full range of motion. Skin: Warm, dry with normal turgor. Normal color with no rashes, no lesions, and no evidence of cellulitis. MS/ Extremity: Pulses equal, no cyanosis. Neurovascular intact. Full, normal range of motion. Neuro: Awake and alert, GCS 15, oriented to person, place, time, and situation. Cranial nerves II-XII grossly intact. Motor strength 5/5 in all extremities. Sensory grossly intact. Cerebellar exam normal. Normal gait. Psych: Awake, alert, with orientation to person, place and time. Behavior, mood, and affect are within normal limits. 12:36 Respiratory: the patient does not display signs of respiratory distress, Respirations: normal, Breath sounds: rhonchi, that are mild. Vital Signs: 12:41 BP 127 / 87; Pulse 83; Resp 20 S; Pulse Ox 95% on R/A; iw 15:15 Weight 106.59 kg (R); sg 18:24 BP 132 / 72; Pulse 80; Resp 20 S; Temp 99.0; Pulse Ox 100% on 3 lpm NC; Pain 3/10; iw 19:32 BP 130 / 93; Pulse 74; Resp 15; Pulse Ox 96% ; Pain 0/10; ea MDM: 12:23 Patient medically screened. [facility] 12:36 Data reviewed: vital signs, nurses notes, lab test result(s), EKG, radiologic studies, [facility] CT scan, plain films. 03/21 12:36 Order name: Basic Metabolic Panel [facility] 03/21 12:36 Order name: CBC with Diff [facility] 03/21 12:36 Order name: Ckmb [facility] 03/21 12:36 Order name: CPK [facility] 03/21 12:36 Order name: LFT's; Complete Time: 14:36 [facility] 03/21 12:36 Order name: Magnesium; Complete Time: 14:36 [facility] 03/21 12:36 Order name: NT PRO-BNP [facility] 03/21 12:36 Order name: PT-INR; Complete Time: 14:36 [facility] 03/21 12:36 Order name: Ptt, Activated; Complete Time: 14:36 [facility] 03/21 12:36 Order name: Troponin (emerg Dept Use Only); Complete Time: 14:36 [facility] 03/21 12:36 Order name: Lipase; Complete Time: 14:36 [facility] 03/21 12:36 Order name: Blood Culture Adult (2) [facility] 03/21 12:36 Order name: Type And Screen [facility] 03/21 12:36 Order name: TSH; Complete Time: 14:36 [facility] 03/21 12:36 Order name: XRAY Chest (1 view); Complete Time: 15:47 [facility] 03/21 12:36 Order name: CT Chest For PE Angio; Complete Time: 15:47 [facility] 03/21 12:36 Order name: Depakote; Complete Time: 14:36 [facility] 03/21 12:37 Order name: Basic Metabolic Panel; Complete Time: 14:36 [facility] 03/21 12:37 Order name: CBC with Automated Diff; Complete Time: 14:36 [facility] 03/21 12:37 Order name: CKMB Creatine Kinase MB; Complete Time: 14:36 [facility] 03/21 12:37 Order name: Creatine Phosphokinase; Complete Time: 14:36 [facility] 03/21 12:37 Order name: NT PRO-BNP; Complete Time: 14:36 [facility] 03/21 13:17 Order name: CBC Smear Scan; Complete Time: 14:36 [facility] 03/21 13:37 Order name: T4 Free; Complete Time: 14:36 [facility] 03/21 14:50 Order name: US Extremity Venous W Compression Grzegorz [facility] 03/21 14:50 Order name: Echo w/ Doppler [facility] 03/21 15:53 Order name: Urine Dipstick--Ancillary (enter results) 03/21 15:53 Order name: Urine --Ancillary (enter results) 03/21 16:49 Order name: Urine --Ancillary [facility] 03/21 16:49 Order name: Urine Dipstick-Ancillary [facility] 03/21 12:36 Order name: EKG; Complete Time: 12:37 [facility] 03/21 12:36 Order name: Cardiac monitoring; Complete Time: 12:41 [facility] 03/21 12:36 Order name: EKG - Nurse/Tech; Complete Time: 12:41 [facility] 03/21 12:36 Order name: IV Saline Lock; Complete Time: 12:41 [facility] 03/21 12:36 Order name: Labs collected and sent; Complete Time: 12:41 [facility] 03/21 12:36 Order name: O2 Per Protocol; Complete Time: 12:41 [facility] 03/21 12:36 Order name: O2 Sat Monitoring; Complete Time: 12:47 [facility] 03/21 12:36 Order name: Urine Dipstick-Ancillary (obtain specimen); Complete Time: 13:11 [facility] 03/21 12:36 Order name: IV Saline Lock - Large Bore; Complete Time: 12:40 [facility] 03/21 13:12 Order name: Urine Dipstick-Ancillary (obtain specimen); Complete Time: 19:06 03/21 15:00 Order name: [facility] Physician Consult EDMS 03/21 16:44 Order name: EDMS Administered Medications: Discontinued: NS 0.9% 1000 ml IV at 1 bolus Per protocol; 1000 mL bolus 13:11 Drug: NS 0.9% 1000 ml Route: IV; Rate: 1 bolus; Site: left antecubital; sg 13:11 Drug: Zofran 4 mg Route: IVP; Site: left antecubital; sg 14:00 Follow up: Response: No adverse reaction; Nausea is decreased sg 16:20 Drug: Lovenox 1 mg/kg Route: Sub-Q; Site: left lower abdomen; sg 19:51 Follow up: Response: No adverse reaction ea 16:20 Drug: Pepcid 20 mg Route: IVP; Site: left antecubital; sg 19:51 Follow up: Response: No adverse reaction ea 16:20 Drug: Aspirin Chewable Tablet 162 mg Route: PO; sg 17:45 Follow up: Response: No adverse reaction sg 16:20 Drug: morphine 4 mg Route: IVP; Site: left antecubital; sg 17:00 Follow up: Response: No adverse reaction; Pain is decreased sg 16:21 Drug: Potassium Effervescent Tablet 25 mEq Route: PO; sg 19:51 Follow up: Response: No adverse reaction ea 16:21 Drug: NS 0.9% 1000 ml Route: IV; Rate: 75 ml/hr; Site: left antecubital; sg 19:50 Follow up: Response: No adverse reaction; IV Status: Infusion continued upon admission ea 17:00 Drug: levofloxacin 500 mg Volume: 100 ml; Route: IVPB; Infused Over: 60 mins; Site: left antecubital; 19:49 Follow up: Response: No adverse reaction; IV Status: Infusion continued upon admission ea Disposition: 03/21/18 14:55 Hospitalization ordered by Aleah Mays for Inpatient Admission. Preliminary diagnosis are Chest pain on breathing, Cardiomegaly, Hypokalemia. - Bed requested for Telemetry/MedSurg (Inpatient). - Status is Inpatient Admission. ea - Condition is Fair. - Problem is new. - Symptoms have improved. UTI on Admission? No Signatures: Dispatcher [employer] EDMS Isis Moore Javi España RN RN sg Anderson, Corey, MD MD cha Williams, Irene, RN RN iw Antunez, Elena, RN RN ea Corrections: (The following items were deleted from the chart) 14:55 14:55 Hospitalization Ordered by Aleah Mays MD for Inpatient Admission. Preliminary [facility] diagnosis is Chest pain on breathing; Cardiomegaly. Bed requested for Intensive Care Unit. Status is Inpatient Admission. Condition is Fair. Problem is new. Symptoms have improved. UTI on Admission? No. aron 16:21 12:36 [place] ordered. [facility] 17:43 14:55 03/21/2018 14:55 Hospitalization Ordered by Aleah Mays MD for Inpatient bd Admission. Preliminary diagnosis is Chest pain on breathing; Cardiomegaly; Hypokalemia. Bed requested for Intensive Care Unit. Status is Inpatient Admission. Condition is Fair. Problem is new. Symptoms have improved. UTI on Admission? No. aron 20:09 17:43 03/21/2018 14:55 Hospitalization Ordered by Aleah Mays MD for Inpatient ea Admission. Preliminary diagnosis is Chest pain on breathing; Cardiomegaly; Hypokalemia. Bed requested for Telemetry/MedSurg (Inpatient). Status is Inpatient Admission. Condition is Fair. Problem is new. Symptoms have improved. UTI on Admission? No. bd
[2018-03-21] MEDS ORDERED: ENOXAPARIN 100 MG/ML SYR SQ ONE (15:02)
[2018-03-21] MEDS ORDERED: POTASSIUM 25 MEQ EFFERV TAB ONE (15:02)
[2018-03-21] MEDS ORDERED: FAMOTIDINE 20 MG/2 ML VIAL IV ONE (15:03)
[2018-03-21] MEDS ORDERED: NITROGLYCERIN 0.4 MG/TAB SL PRN (15:22)
[2018-03-21] MEDS ORDERED: ACETAMINOPHEN 500 MG TAB PO PRN (15:22)
--- NOTE | 2018-03-21 15:29 | RAD REPORT ---
EXAM DESCRIPTION: CT - Chest For Pe Angio - 03/21/2018 3:02 pm CLINICAL HISTORY: Chest pain COMPARISON: December 2017 TECHNIQUE: Dynamically enhanced axial 3 mm thick images of the chest were obtained during administra tion of <100> mL Isovue 370 IV contrast. Coronal and oblique reconstruction images were generated and reviewed. Exam utilizes a protocol for optimal evaluation of pulmonary arterial tree. Maximum intensity projections 3D imaging was utilized All CT scans are performed using dose optimization technique as appropriate and may include automated exposure control or mA/KV adjustment according to patient size. FINDINGS: Respiratory motion artifact limits evaluation of some of the peripheral pulmonary arteries . A pulmonary embolus is not seen. A thoracic aortic aneurysm is not noted. Mild to moderate mediastinal lymphadenopathy is present A small to moderate pericardial effusion is present. A 4 centimeter left lower lobe opacity is present. A small loculated left pleural effusion is seen. T iny right pleural effusion is present. Mild to moderate bilateral patchy lung opacities are seen. IMPRESSION: Negative for a pulmonary embolism. 4 centimeter left lower lobe opacity probably represents rounded atelectasis. This should be followed until it is clear to help exclude a post obstructive process/underlying mass Small to moderate pericardial effusion Mild to moderate bilateral patchy lung opacities could either represent pulmonary edema or pneumonia
--- NOTE | 2018-03-21 15:31 | RAD REPORT ---
EXAM DESCRIPTION: Dionte Single View03/21/2018 2:04 pm CLINICAL HISTORY: Shortness of breath COMPARISON: February 2018 FINDINGS: Mild to moderate bilateral patchy lung opacities are seen. The heart is mildly to moderat nikkie enlarged. Small pleural effusions are present. Left lower lobe opacity is seen IMPRESSION: Mild to moderate bilateral patchy lung opacities probably represent pulmonary edema. Pne umonia is another consideration. Left lower lobe opacity probably represents rounded atelectasis
--- NOTE | 2018-03-21 16:07 | EKG ---
Test Date: 2018-03-21 Test Time: 12:36:35 Chartered Financial Analyst: JERED MEASUREMENT RESULTS: Intervals: Rate: 85 KS: 146 QRSD: 96 QT: 406 QTc: 483 [place]: P: 38 KS: 146 QRS: 11 T: 43 INTERPRETIVE STATEMENTS: Normal sinus rhythm Nonspecific T wave abnormality Prolonged QT Abnormal ECG Compared to ECG 02/10/2018 19:47:35 T-wave abnormality now present Prolonged QT interval now present Sinus tachycardia no longer present Electronically Signed On 03-21-18 16:06:45 CDT by Vignesh Griffiths
[2018-03-21] MEDS ORDERED: ASPIRIN 81 MG CHEWABLE TABLET ONE (16:13)
[2018-03-21] MEDS ORDERED: MORPHINE 4 MG/ML SYR ONE (16:13)
--- NOTE | 2018-03-21 16:38 | ECHO ---
HEIGHT: ft in WEIGHT: lb oz DATE OF STUDY: 03/21/[address]: Mango Traore MD 2-DIMENSIONAL: YES M.MODE: YES DOPPLER: YES COLOR FLOW: YES TDS: PORTABLE: DEFINITY: BUBBLE STUDY: DIAGNOSIS: SHORTNESS OF BREATH, AND CHEST PAIN. CARDIAC HISTORY: CATHERIZATION: NO SURGERY: NO PROSTHETIC VALVE: NO PACEMAKER: NO MEASUREMENTS (cm) DIASTOLIC (NORMALS) SYSTOLIC (NORMALS) IVSd 1.0 (0.6-1.2) LA Diam 3.8 (1.9-4.0) LVEF 59% LVIDd 5.3 (3.5-5.7) LVIDs 3.6 (2.0-3.5) %FS 32% LVPWd 1.0 (0.6-1.2) Ao Diam 3.2 (2.0-3.7) 2 DIMENSIONAL ASSESSMENT: RIGHT ATRIUM: NORMAL LEFT ATRIUM: NORMAL RIGHT VENTRICLE: NORMAL LEFT VENTRICLE: NORMAL TRICUSPID VALVE: NORMAL MITRAL VALVE: NORMAL PULMONIC VALVE: NORMAL AORTIC VALVE: NORMAL PERICARDIAL EFFUSION: NONE AORTIC ROOT: NORMAL LEFT VENTRICULAR WALL MOTION: NORMAL DOPPLER/COLOR FLOW: NORMAL COMMENTS: NORMAL TWO DIMENSIONAL ECHOCARDIOGRAM WITH DOPPLER. NO WALL MOTION ABNORMALITY. NO EFFUSION. TECHNOLOGIST: NIC MACIAS
--- NOTE | 2018-03-21 16:44 | RAD REPORT ---
EXAM DESCRIPTION: US - Extrem Venous W Compress Grzegorz - 03/21/2018 4:30 pm CLINICAL HISTORY: PAIN Bilateral leg edema and swelling. COMPARISON: No comparisons TECHNIQUE: Real-time sonographic interrogation of the left and right lower extremity deep venous sys tems was performed. FINDINGS: Normal compressibility, flow augmentation, phasic flow and spontaneous flow is identified in both the left and right lower extremity deep venous systems. IMPRESSION: No sonographic evidence of left or right lower extremity deep venous thrombosis.
[2018-03-21 16:48] LABS: Urine Blood NEGATIVE (NEG); Urine Glucose NEGATIVE (NEG); Urine Protein NEGATIVE (NEG); Urine Specific Gravity 1.015 (1.005-1.030); Urine pH 7.5 (5.0-7.0)
[2018-03-21] MEDS ORDERED: Levofloxacin500mg IV 500 MG/100 ML BAG IV ONE (16:53)
[2018-03-21] MEDS ORDERED: FUROSEMIDE 40 MG/4 ML VIAL IV ONE (19:00)
[2018-03-21] MEDS: ENOXAPARIN 100 MG/ML SYR SQ SCH (20:05)
[2018-03-21] MEDS: MORPHINE 4 MG/ML SYR IV PRN (20:46)
[2018-03-21] MEDS: ATORVASTATIN 40 MG TAB PO SCH (20:49)
[2018-03-21] MEDS: METOPROLOL TAR 25 MG TAB PO SCH (20:49)
[2018-03-21] MEDS: WARFARIN SODIUM 5 MG TAB PO SCH (20:50)
[2018-03-21] MEDS: ZOLPIDEM TARTRATE 5 MG TABLET PO PRN (21:09)
[2018-03-22] MEDS: PIPER/TAZO/NS 3.375gm 3.375 GM/100 ML BAG IVPB SCH ×3 (00:48→16:53)
[2018-03-22] MEDS: BACITRACIN OINTMENT 15 GM TUBE TOP SCH ×3 (00:48→16:43)
[2018-03-22] MEDS: MORPHINE 4 MG/ML SYR IV PRN ×6 (01:22→20:31)
--- NOTE | 2018-03-22 04:08 | HP ---
Date of Admission: 03/21/2018 Consultants: Dr. Griffiths with Cardiology. Chief Complaint: Chest pain. Code Status: Full. Primary Care Physician: Dr. Blanco. Hpi: The patient is a 47-year-old female with multiple comorbid conditions including morbid obesity, multiple wounds on her groin, foot, neck, anxiety disorder, and history of DVT and PE with 2 recent long stays in the hospital at [facility] as well as [facility] for chronic wounds a fter her acute respiratory failure, for which she was transferred to [facility] during the summer. T patient comes in with chest pain that has been going on since for the past couple of days. She ge ts worse with movement and deep breaths. No palpitations, dizziness, sweating, or radiation. The pa tient's symptoms are constant, moderate, progressively worsening. The patient comes into the ER for further evaluation. Her workup revealed a potassium of 3.4. UA was negative. BNP was 868. TSH was 9.2. Imaging studies including CT angio chest showed atelectasis, however, no PE. Doppler sonogram showed no DVT. Stat echocardiogram was done, which showed EF of 59% without any effusion. The moo ent was then admitted to the hospital for further evaluation. Her initial cardiac troponins were neg ative. She did have some nonspecific T-wave changes, but no ST elevation on the EKG. When seen in [facility] ER, she was awake, alert, and oriented x3, in some mild distress. Past Medical History: Morbid obesity, history of deep venous thrombosis and PE, on Coumadin, recentl y dose reduced to 2.5. Multiple wounds including bilateral groin wounds, right arm wound, and dry ga ngrene of the left first toe, generalized anxiety disorder. Past Surgical History: The patient had , tonsillectomy, I and D, back surgery, debridement for wounds. Family History: No history of premature coronary artery disease. Social History: The patient does drink occasionally. No tobacco use or illicit drug use. Review of Systems: An 11-point system reviewed, negative except as per HPI. Physical Examination: Vital Signs: Blood pressure 127/87, pulse 83, respirations 20, O2 95% on room air. General: Awake, alert, oriented x3, in some mild distress. HEENT: Normocephalic, atraumatic. PERRLA. EOMI. Moist mucous membranes. Oropharynx is clear. Po or dentition. Neck: Supple. No JVD. Trachea midline. CV: S1, S2. No murmurs. Regular rate and rhythm. Peripheral pulses present. Respiratory: Diminished breath sounds, left worse than right. No wheezing. No stridor. Gastrointestinal: Abdomen is soft, nontender, nondistended. Positive bowel sounds. Extremities: No clubbing, cyanosis, or edema. No calf tenderness. Skin: The patient has healing ulcers on the right arm as well as right groin. Left groin wound is p acked and has dry gangrene of the left first toe. Neuro: Cranial nerves 2 through 12 intact grossly. No focal neurological deficit. Speech is normal . Laboratory Data: Sodium 143, potassium 3.4, chloride 106, CO2 29, BUN 8, creatinine 0.7, glucose 81, calcium 8.7, magnesium 2.3. BNP 868. Albumin 2.1. TSH 9.2, free T4 0.69. INR 1.07. WBC 9.4, H a nd H 10.8 and 32.9, platelets 313. Venous Doppler shows no evidence of DVT in either lower extremity . CT angio shows negative for PE, 4 cm left lobe opacity represents round atelectasis, small to mode rate pericardial effusion, small to moderate bilateral patchy lung opacities could either represent p ulmonary edema or pneumonia. Echocardiogram shows EF 59%. No wall motion abnormality. No effusion. Assessment And Plan: A 47-year-old female with: 1.Pleuritic chest pain, likely secondary to atelectasis and pulmonary edema. 2.Possible diastolic heart failure, acute. 3.Multiple chronic wounds. We will examine the chart for previous cultures that were taken as an ou tpatient. We will continue antibiotics for now. 4.History of deep venous thrombosis and pulmonary embolism, on Coumadin. INR is subtherapeutic. We will start on Lovenox therapeutic dose bridge with Coumadin. 5.Morbid obesity. 6.Generalized anxiety disorder. Plan: Admission to Med-Surg, place as inpatient. We will continue with wound care. May need to adj ust antibiotic therapy. /DANNA Voice ID: [id number]
[2018-03-22 04:54] LABS: Absolute Lymphocytes (CBC) 2.6 K/uL (0.7-4.9); Absolute Monocytes 1.6 K/uL (0.1-1.3); Absolute Neutrophil 4.2 K/uL (1.8-8.0); Basophils % 0.5 % (0-1.3); Hematocrit 31.3 % (36.0-45.0); Lymphocytes % 30.1 % (15.3-44.8); MCH 29.9 pg (27.0-35.0); MCV 89.3 fL (80-100); MPV 6.9 fL (7.6-11.3); RBC Red Blood Cell Count 3.51 M/uL (3.86-4.86)
[2018-03-22 05:12] LABS: Protime INR 1.1
[2018-03-22 05:18] LABS: BUN Blood Urea Nitrogen 7 mg/dL (7-18); Bicarbonate 30 mmol/L (21-32); Glucose Level 81 mg/dL (74-106); HDL Cholesterol 25 mg/dL (40-60); LDL Cholesterol, Calculated 74 (<130); Potassium 3.5 mmol/L (3.5-5.1); Sodium Level 141 mmol/L (136-145); Troponin I < 0.02 ng/mL (0.0-0.045)
[2018-03-22] MEDS ORDERED: REGADENOSON 0.4 MG/5 ML SYR IV ONE (08:19)
[2018-03-22] MEDS: LISINOPRIL 10 MG TAB PO SCH (09:00)
[2018-03-22] MEDS: METOPROLOL TAR 25 MG TAB PO SCH ×2 (09:00→21:00)
[2018-03-22] MEDS: ASPIRIN EC 81 MG TAB PO SCH (09:00)
[2018-03-22] MEDS: ENOXAPARIN 100 MG/ML SYR SQ SCH ×2 (09:43→21:55)
[2018-03-22] MEDS: AMIODARONE HCL 200 MG TAB PO SCH (11:37)
--- NOTE | 2018-03-22 12:35 | TREADPHA ---
DX: CHEST PAIN Date of Study: 03/22/18 Ht: 5 7 Wt: 249 lb 0 oz Consulting Physician: JOSE MEDICATIONS: TYLENOL, XANAX, ASPIRIN, LIPITOR, LOVENOX, PRINIVIL, LOPRESSOR, NITROSTAT, COUMADIN, ABIEN. HISTORY: 47 YEAR OLD FEMALE WITH COMPLAINTS OF CHEST PAIN. MEDICAL HISTORY OF BIPOLAR, HYPOTHROIDISIM. PHYSICIAL EXAMINATION: RESTING B.P.: 124/88 RESTING H.R.: 74 RESTING EKG: NORMAL SINUS RHYTHM, NORMAL ST. PROTOCOL: LEXISCAN EXERCISE TIME: 3:30 B.P. AT PEAK STRESS: 125/83 IMPRESSION: LEXISCAN INJECTED, CARDIOLITE INJECTED PER PROTOCOL, SEE NUCLEAR MEDICINE REPORT. NO VENTRICULAR TACHYCARDIA. NO SUPRA VENTRICULAR TACHYCARDIA. NO PREMATURE VENTRICULAR COMPLEXES. CHEST PAIN 8/10 PRIOR TO INJECTION. 10/10 AFTER INJECTION AND IN RECOVERY PATIENT STATES UNABLE TO TAKE IN DEEP BREATHS.
[2018-03-22] MEDS: SEVELAMER CARBONATE 800 MG TABLET PO SCH ×2 (13:15→16:53)
--- NOTE | 2018-03-22 13:39 | RAD REPORT ---
EXAM DESCRIPTION: NM - Rest Stress Cardiac Imaging - 03/22/2018 1:26 pm CLINICAL HISTORY: Chest pain COMPARISON: None. TECHNIQUE: The patient was administered 10.6 mCi of Tc 99m Sestamibi prior to resting SPECT imaging of the heart. The patient was then administered 30.4 mCi of Tc 99m Sestamibi following exercise or ph armacologic stress. Multiplanar SPECT images were reviewed. FINDINGS: The end diastolic volume is 106 ml, the end systolic volume is 53 ml, and the ejection fra ction is 50 %. No stress-induced ischemic changes are identifiable. Areas of relative diminished activity are seen i n the anterior and inferior fisher. This could be is scarring or more likely attenuation artifact. IMPRESSION: No stress-induced ischemia. Diminished activity along the anterior and inferior fisher favored to be attenuation artifact rather t choudhury scarring. Ventricular volumes and ejection fraction are normal range.
[2018-03-22] MEDS: WARFARIN SODIUM 5 MG TAB PO SCH (16:53)
--- NOTE | 2018-03-22 19:32 | PN ---
Date of Progress Note: 03/22/2018 Subjective: The patient seen and examined. Chart reviewed and case discussed with RN. The patient states that she is doing better. No further chest tightness. However, she does have difficulty taking deep breaths. Review of Systems: Negative except as above. Medications: List reviewed. Physical Examination: Vital Signs: Temperature 97, heart rate 76, blood pressure 105/65, respirations 20, O2 96% on 2 L via nasal cannula. General: Awake, alert, oriented x3. Mild distress, appears older than stated age, ill-appearing, morbidly obese female. CV: S1, S2. Regular rate and rhythm. Peripheral pulses present. Respiratory: Diminished breath sounds. Gastrointestinal: Abdomen is soft, nontender, nondistended. Positive bowel sounds. Extremities: No clubbing, cyanosis, or edema. Neurologic: Nonfocal. Skin: The patient has ulcers on the bilateral groin, left first toe as well as bilateral neck, which are healed. Laboratory Data: Sodium 141, potassium 3.5, chloride 102, CO2 30, BUN 7, creatinine 0.6, glucose 81, calcium 8.5. Troponin less than 0.02. Triglycerides 244, cholesterol 148, LDL 74, HDL 25, TSH 9.2, INR 1.10. WBC 8.8 , H and H 10.5, 31.3, platelets 299. Blood cultures, no growth to date. Wound cultures pending. [facility] are growing Xanthomonas maltophi as well as Klebsiella pneumonia resistant to Levaquin. Cardiac stress test negative for any stress-induced ischemia. Diminished activity along the anterior inferior fisher favored to be attenuation artifact rather than scarring. Assessment And Plan: A 47-year-old female with: 1. Chest pain. Acute coronary syndrome ruled out. Stress test negative. 2. Pleuritic pain, likely due to atelectasis and we will continue with incentive spirometry and encourage patient to ambulate. 3. Multiple chronic wounds. Microbiology cultures [facility] shows Xanthomonas and Klebsiella. We will continue IV antibiotics. No need for debridement at this time. We will continue wound care with collagenase and bacitracin. 4. History of deep venous thrombosis and pulmonary embolism, on Coumadin. INR still subtherapeutic. We will continue therapeutic Lovenox and bridge with Coumadin. 5. Morbid obesity BMI 39. Counseled. 6. Generalized anxiety disorder. 7. Elevated TSH, likely hypothyroidism. We will start on levothyroxine. /DANNA Voice ID: [id number] Report ID: [id number] ELIER
[2018-03-22] MEDS: JUVEN PACKET PO SCH (21:00)
[2018-03-22] MEDS: ATORVASTATIN 40 MG TAB PO SCH (21:55)
[2018-03-22] MEDS: ESCITALOPRAM 20 MG TAB PO SCH (21:56)
[2018-03-22] MEDS: ZOLPIDEM TARTRATE 5 MG TABLET PO PRN (21:57)
[2018-03-22] MEDS: ALPRAZOLAM 0.25 MG TABLET PO PRN (21:58)
[2018-03-23] MEDS: PIPER/TAZO/NS 3.375gm 3.375 GM/100 ML BAG IVPB SCH ×3 (00:57→18:01)
[2018-03-23] MEDS: MORPHINE 4 MG/ML SYR IV PRN ×6 (00:58→23:53)
--- NOTE | 2018-03-23 02:45 | CON ---
Date of Consultation: 03/22/[address] Mays's service on 03/21/2018. I saw the patient on 03/22/2018. Reason For Consultation: Chest pain. History Of Present Illness: Ms. Veliz is a 47-year-old woman, she has a history of bipolar diso rder, hypothyroidism, has history of DVT and pulmonary embolus on Coumadin, not followed up closely, came in with atypical chest pain, sharp, stabbing. No nausea, vomiting, diaphoresis, PND, orthopnea, pedal edema, palpitations, or syncope. She had a negative troponin and BNP. She had a negative umm ous Doppler. Negative echocardiogram. Her BNP was 868. Her TSH was elevated, T4 was low. Potassiu m of 3.4, hemoglobin 10.8. Chest x-ray showed possible pneumonia versus CHF with pericardial effusio n, although the echocardiogram did not show any pericardial effusion. Allergies: SHE IS ALLERGIC TO CAFFEINE AND HYDROCODONE. Review of Systems: Negative. Social History: Negative. Family History: Negative. Medications: Include Xanax, Coumadin, multiple psychiatric medications, and seizure medicine. Physical Examination: Vital Signs: Stable, afebrile. HEENT: Negative. Neck: Supple without any bruit, lymphadenopathy, JVD, or thyromegaly. Chest: Clear to auscultation and percussion. Cardiac: Revealed a regular rhythm and rate without any murmurs, gallops, or rubs. Abdomen: Benign. Extremities: Revealed no clubbing, cyanosis, or edema. Diagnostic Data: As stated earlier. Impression And Plan: Atypical chest pain. Lexiscan is pending. Echocardiogram is normal. I believ e her symptoms may be secondary to pleurisy or possibly a pneumonia. I doubt that we are dealing wit h congestive heart failure. She has a history of deep vein thrombosis and pulmonary embolism, and CT A did not show any pulmonary embolism at this time. She needs to follow up closely with the primary care physician to define what to do with her Coumadin. We will see what her Lexiscan shows before ma lucy any further decisions. She may need some changes in her medication. She may be a candidate for Synthroid. Her potassium needs to be corrected. MERCEDES/MODL Voice ID: [id number] Report ID: [id number]
[2018-03-23 05:29] LABS: Protime INR 1.28
[2018-03-23 05:34] LABS: Absolute Lymphocytes (CBC) 1.3 K/uL (0.7-4.9); Absolute Monocytes 1.5 K/uL (0.1-1.3); Absolute Neutrophil 3.8 K/uL (1.8-8.0); Basophils % 0.5 % (0-1.3); Eosinophils % 4.7 % (0-4.4); Hematocrit 30.4 % (36.0-45.0); MCH 29.8 pg (27.0-35.0); MCV 89.7 fL (80-100); Monocytes % 21.3 % (3.3-12.3); RBC Red Blood Cell Count 3.39 M/uL (3.86-4.86)
[2018-03-23 05:43] LABS: Bilirubin Total 0.3 mg/dL (0.2-1.0); Potassium 3.4 mmol/L (3.5-5.1); Protein, Total 6.7 g/dL (6.4-8.2)
[2018-03-23] MEDS: LEVOTHYROXINE SOD 0.025 MG TAB PO SCH (06:06)
[2018-03-23 06:40] LABS: Blood Morphology Comment NOT SEEN (NOT SEEN); Platelet Estimate ADEQ; Urine White Blood Cell Casts OK
[2018-03-23] MEDS: LISINOPRIL 10 MG TAB PO SCH (09:00)
[2018-03-23] MEDS: METOPROLOL TAR 25 MG TAB PO SCH ×2 (09:00→20:25)
[2018-03-23] MEDS ORDERED: FUROSEMIDE 40 MG TABLET PO SCH (09:00)
[2018-03-23] MEDS: JUVEN PACKET PO SCH ×2 (09:00→21:15)
[2018-03-23] MEDS: SEVELAMER CARBONATE 800 MG TABLET PO SCH ×3 (09:40→17:43)
[2018-03-23] MEDS: AMIODARONE HCL 200 MG TAB PO SCH (09:42)
[2018-03-23] MEDS: POTASSIUM CL SA 10 MEQ TAB PO SCH (09:42)
[2018-03-23] MEDS: ASPIRIN EC 81 MG TAB PO SCH (09:42)
[2018-03-23] MEDS: PANTOPRAZOLE 40MG TABLET PO SCH (09:46)
[2018-03-23] MEDS: ENOXAPARIN 100 MG/ML SYR SQ SCH ×2 (09:47→20:24)
[2018-03-23] MEDS: COLLAGENASE 30 GM OINTMENT TOP SCH (10:57)
[2018-03-23] MEDS: BACITRACIN OINTMENT 15 GM TUBE TOP SCH (10:58)
--- NOTE | 2018-03-23 12:51 | RAD REPORT ---
EXAM DESCRIPTION: RAD - Chest Single View - 03/23/2018 12:20 pm CLINICAL HISTORY: sob Chest pain. COMPARISON: Chest Single View dated 03/21/2018; Chest Single View dated 02/12/2018; Chest Single View d ated 02/07/2018; Chest Single View dated 02/01/2018 FINDINGS: Portable technique limits examination quality. Bilateral pulmonary opacities are noted, slightly worse on the comparative study, likely indicating p ulmonary edema. The heart is moderately enlarged in size. No displaced fractures. IMPRESSION: Mild progression in CHF/ volume overload pattern.
[2018-03-23] MEDS ORDERED: FLUCONAZOLE 100 MG TAB PO ONE (17:00)
[2018-03-23] MEDS: WARFARIN SODIUM 5 MG TAB PO SCH (17:42)
[2018-03-23] MEDS: FUROSEMIDE 40 MG/4 ML VIAL IV SCH (18:00)
[2018-03-23] MEDS: ESCITALOPRAM 20 MG TAB PO SCH (20:24)
[2018-03-23] MEDS: ATORVASTATIN 40 MG TAB PO SCH (20:24)
--- NOTE | 2018-03-23 21:00 | PN ---
Date of Progress Note: 03/23/2018 Subjective: The patient seen and examined. Chart reviewed and case discussed with RN and Dr. Anil isidro. The patient reports pleuritic chest pain. Review of Systems: Negative except as above. Medications: List reviewed. Physical Examination: Vital Signs: Temperature is 97.9, heart rate 86, blood pressure 112/67, respirations 20, O2 95% on 2 L via nasal cannula. General: Awake, alert, and oriented x3, some mild distress, ill-appearing female, morbidly obese, BM I 39. CV: S1, S2. No murmurs. Regular rate and rhythm. Peripheral pulses present. Respiratory: Moving air well at the apices. Diminished breath sounds at the bases. No rhonchi, no wheezing. Gastrointestinal: Abdomen is soft, nontender, nondistended. Positive bowel sounds. Extremities: No clubbing, cyanosis, or edema. Neurologic: Nonfocal. Skin: The patient has multiple ulcers including bilateral groin, left first toe with dry gangrene an d right forearm. Laboratory Data: Sodium 139, potassium 3.4, chloride 100, CO2 34. BUN 8, creatinine 0.8, glucose 83 , calcium 8.5, and albumin 2. INR 1.28. WBC 6.9, H and H 10.1/30.4, platelets 294, neutrophils 54%. Blood cultures, no growth to date. Wound culture, 1+ yeast in the left groin. Chest x-ray, mild p rogression in CHF volume overload pattern, personally reviewed. Assessment And Plan: A 47-year-old female with: 1.Chest pain, ACS ruled out. 2.Pleuritic chest pain secondary to atelectasis versus effusion. 3.Volume overload. We will adjust IV fluids Lasix. 4.Multiple chronic wounds. Micro showing Xanthomonas and Klebsiella, also yeast. We will add Diflu can. No need for debridement at this time. Continue wound care. 5.History of deep venous thrombosis and pulmonary embolism, on Coumadin. INR is subtherapeutic. We will continue Lovenox and monitor INR. 6.Morbid obesity, BMI 39. 7.Hypothyroidism, started on levothyroxine. We will need repeat TSH in 8 weeks. 8.Generalized anxiety disorder. 9.Severe protein-calorie malnutrition. Albumin 2. 10.Hypokalemia. 11.Normocytic normochromic anemia. /DANNA Voice ID: [id number] Report ID: [id number]
[2018-03-24] MEDS: PIPER/TAZO/NS 3.375gm 3.375 GM/100 ML BAG IVPB SCH ×3 (01:33→17:39)
[2018-03-24] MEDS: MORPHINE 4 MG/ML SYR IV PRN ×4 (04:53→20:45)
[2018-03-24] MEDS: LEVOTHYROXINE SOD 0.025 MG TAB PO SCH (05:02)
[2018-03-24] MEDS ORDERED: D50W 25 GM/50 ML SYRINGE IV ONE (07:52)
[2018-03-24] MEDS: COLLAGENASE 30 GM OINTMENT TOP SCH (09:00)
[2018-03-24] MEDS: ENOXAPARIN 100 MG/ML SYR SQ SCH ×2 (09:00→20:42)
[2018-03-24] MEDS: FUROSEMIDE 40 MG/4 ML VIAL IV SCH ×2 (09:00→17:37)
[2018-03-24] MEDS: BACITRACIN OINTMENT 15 GM TUBE TOP SCH (09:00)
[2018-03-24 09:55] LABS: Absolute Lymphocytes (CBC) 1.8 K/uL (0.7-4.9); Absolute Monocytes 1.8 K/uL (0.1-1.3); Absolute Neutrophil 3.2 K/uL (1.8-8.0); Basophils % 0.5 % (0-1.3); Eosinophils % 6.4 % (0-4.4); Lymphocytes % 24.7 % (15.3-44.8); MCH 29.6 pg (27.0-35.0); MPV 7.1 fL (7.6-11.3); RBC Red Blood Cell Count 3.37 M/uL (3.86-4.86)
[2018-03-24 10:30] LABS: Anisocytosis 1+; Blood Morphology Comment NOTED (NOT SEEN); Platelet Estimate ADEQ; Polychromasia 1+
[2018-03-24 10:48] LABS: Protime INR 1.61
[2018-03-24 11:19] LABS: AST/SGOT 17 U/L (15-37); Alkaline Phosphatase 61 U/L (45-117); BUN Blood Urea Nitrogen 7 mg/dL (7-18); Bicarbonate 33 mmol/L (21-32); Bilirubin Total 0.3 mg/dL (0.2-1.0); Glucose Level 84 mg/dL (74-106); Potassium 3.2 mmol/L (3.5-5.1); Protein, Total 6.7 g/dL (6.4-8.2); Sodium Level 140 mmol/L (136-145)
[2018-03-24 11:37] LABS: ALT/SGPT < 6 U/L (12-78)
[2018-03-24] MEDS: POTASSIUM CL SA 10 MEQ TAB PO SCH (14:46)
[2018-03-24] MEDS: JUVEN PACKET PO SCH ×2 (14:46→21:00)
[2018-03-24] MEDS: AMIODARONE HCL 200 MG TAB PO SCH (14:46)
[2018-03-24] MEDS: PANTOPRAZOLE 40MG TABLET PO SCH (14:47)
[2018-03-24] MEDS: METOPROLOL TAR 25 MG TAB PO SCH ×2 (14:47→20:41)
[2018-03-24] MEDS: LISINOPRIL 10 MG TAB PO SCH (14:47)
[2018-03-24] MEDS: SEVELAMER CARBONATE 800 MG TABLET PO SCH ×3 (14:47→17:38)
[2018-03-24] MEDS: ASPIRIN EC 81 MG TAB PO SCH (14:50)
[2018-03-24] MEDS ORDERED: POTASSIUM CL SA 10 MEQ TAB PO ONE (15:19)
[2018-03-24] MEDS: WARFARIN SODIUM 5 MG TAB PO SCH (17:37)
[2018-03-24] MEDS: ESCITALOPRAM 20 MG TAB PO SCH (20:40)
[2018-03-24] MEDS: ATORVASTATIN 40 MG TAB PO SCH (20:44)
[2018-03-24] MEDS: ALPRAZOLAM 0.25 MG TABLET PO PRN (20:51)
--- NOTE | 2018-03-24 21:18 | PN ---
Date of Progress Note: 03/24/2018 Subjective: The patient was seen and examined. Chart reviewed and case discussed with RN and Dr. Tamir olmstead. The patient feels better. She has been using the incentive spirometer. Still having some pl euritic chest pain from deep breath. Review of Systems: Negative except as above. Medication: List reviewed. Physical Examination: Vital Signs: Temperature 97.7, heart rate 72, blood pressure 104/62, respirations 16, O2 94% on 3 L via nasal cannula. General: Awake, alert, oriented x3, no acute distress. Appears older than stated age. Morbidly obe se female. CV: S1, S2. Regular rate and rhythm. Peripheral pulses present. Respiratory: Diminished breath sounds. No wheezing. No stridor. Gastrointestinal: Abdomen is soft, nontender, nondistended. Positive bowel sounds. Extremities: No clubbing, cyanosis, edema. Skin: Multiple wounds bilateral groin and left first toe and right arm. Laboratory Data: Sodium 140, potassium 3.2, chloride 100, CO2 23, BUN 7, creatinine 0.7, glucose 84, calcium 8.6, albumin 2. WBC 7.3, H and H 10 and 30, platelets 235, neutrophils 43%. INR 1.61. Blo od cultures, no growth to date. Wound cultures, 1+ yeast, 1+ gram-negative rods. Assessment And Plan: She is a 47-year-old female with: 1.Atypical chest pain. Acute coronary syndrome ruled out. 2.Pleuritic chest pain, likely secondary to atelectasis and effusion. We will continue incentive sp irometer and diuresis. 3.Volume overload, likely diastolic heart failure, acute. EF is normal on echocardiogram. We will continue fluid restriction. Monitor I's and O's. 4.Multiple chronic wounds. Micro showing Xanthomonas and Klebsiella as well as yeast, treated with Diflucan. We will continue IV antibiotics for now. 5.History of deep venous thrombosis and pulmonary embolism, on Coumadin. INR improving, currently 1 .6. We will continue Lovenox. 6.Morbid obesity. BMI 39. 7.Hypothyroidism, on levothyroxine. 8.Generalized anxiety disorder. 9.Severe protein-calorie malnutrition. Albumin is 2. 10.Hypokalemia, likely due to Lasix. We will increase daily dose of potassium. 11.Normocytic normochromic anemia. H and H stable. Plan is likely to see in a.m. if continues to i mprove. Try to wean off oxygen as tolerated. Repeat chest x-ray in a.m. /DANNA Voice ID: [id number] Report ID: [id number]
[2018-03-25] MEDS: PIPER/TAZO/NS 3.375gm 3.375 GM/100 ML BAG IVPB SCH ×3 (00:58→18:45)
[2018-03-25] MEDS: MORPHINE 4 MG/ML SYR IV PRN (05:35)
[2018-03-25] MEDS: LEVOTHYROXINE SOD 0.025 MG TAB PO SCH (05:36)
[2018-03-25 05:46] LABS: Absolute Monocytes 1.7 K/uL (0.1-1.3); Absolute Neutrophil 3.1 K/uL (1.8-8.0); Basophils % 0.6 % (0-1.3); Eosinophils % 6.4 % (0-4.4); Hematocrit 34.3 % (36.0-45.0); Lymphocytes % 27.4 % (15.3-44.8); MCH 29.1 pg (27.0-35.0); MCV 89.8 fL (80-100); MPV 7.2 fL (7.6-11.3); Monocytes % 23.4 % (3.3-12.3); RBC Red Blood Cell Count 3.82 M/uL (3.86-4.86)
[2018-03-25 05:58] LABS: Protime INR 1.47
[2018-03-25 06:03] LABS: Albumin 2.3 g/dL (3.4-5.0); Bilirubin Total 0.2 mg/dL (0.2-1.0); Potassium 3.2 mmol/L (3.5-5.1); Protein, Total 7.6 g/dL (6.4-8.2)
--- NOTE | 2018-03-25 07:46 | RAD REPORT ---
EXAM DESCRIPTION: Dionte Single View03/25/2018 5:53 am CLINICAL HISTORY: Chest pain COMPARISON: 03/23/2018 FINDINGS: The bilateral pulmonary opacities have partially resolved. The heart has mildly diminishe d in size. IMPRESSION: Partial resolution in mild CHF
[2018-03-25] MEDS: BACITRACIN OINTMENT 15 GM TUBE TOP SCH (09:00)
[2018-03-25] MEDS: LISINOPRIL 10 MG TAB PO SCH (09:00)
[2018-03-25] MEDS: JUVEN PACKET PO SCH ×2 (09:00→21:13)
[2018-03-25] MEDS: POTASSIUM CL SA 10 MEQ TAB PO SCH (09:00)
[2018-03-25] MEDS: METOPROLOL TAR 25 MG TAB PO SCH ×2 (09:00→21:00)
[2018-03-25] MEDS: COLLAGENASE 30 GM OINTMENT TOP SCH (09:00)
[2018-03-25] MEDS: FUROSEMIDE 40 MG/4 ML VIAL IV SCH (09:00)
[2018-03-25] MEDS: FUROSEMIDE 20 MG/ 2ML VIAL IV SCH ×2 (09:48→17:00)
[2018-03-25] MEDS: SEVELAMER CARBONATE 800 MG TABLET PO SCH ×3 (09:58→18:45)
[2018-03-25] MEDS: ENOXAPARIN 100 MG/ML SYR SQ SCH ×2 (09:58→21:11)
[2018-03-25] MEDS: ASPIRIN EC 81 MG TAB PO SCH (09:58)
[2018-03-25] MEDS: PANTOPRAZOLE 40MG TABLET PO SCH (09:59)
[2018-03-25] MEDS: AMIODARONE HCL 200 MG TAB PO SCH (09:59)
[2018-03-25] MEDS: NA CHLORIDE 0.9% 250 ML IV PRN ×2 (10:06→13:16)
[2018-03-25] MEDS: HYDROCODONE/APAP 5/325 MG TAB PO PRN ×3 (10:06→21:11)
[2018-03-25] MEDS ORDERED: POTASSIUM CL SA 10 MEQ TAB PO ONE (11:06)
--- NOTE | 2018-03-25 12:53 | PN ---
Date of Progress Note: 03/25/2018 Subjective: The patient seen and examined, chart reviewed, and case discussed with RN. The patient still states that she has pleuritic chest pain, however, is improved. The patient's blood pressure i n the low side 80s over 50s this morning. The patient seems to be asymptomatic. Review of Systems: Negative except as above. Medications: List reviewed. Objective: Vital Signs: Temperature 97, heart rate 78, blood pressure 191/64, respirations 16, O2 9 7% on 2 L via nasal cannula. General: Awake, alert, oriented x3. Morbidly obese female. CV: S1, S2. No murmurs. Regular rate and rhythm. Peripheral pulses present. Respiratory: Moving air well bilaterally. No wheezing or stridor. Gastrointestinal: Abdomen is soft, nontender, nondistended. Positive bowel sounds. Extremities: No clubbing, cyanosis, or edema. Neurologic: Nonfocal. Skin: The patient has multiple wounds. Wound on the left side of the groin has packing. Other woun ds include right groin and left first toe. Wound on the right arm has essentially healed. Laboratory Data: Sodium 138, potassium 3.2, chloride 96, CO2 38, BUN 12, creatinine 0.9, glucose 73, calcium 9.1, albumin 2.3. WBC 7.4, H and H 11.1, 34.3, platelets 350. Wound cultures from the left groin growing Stenotrophomonas maltophilia, multidrug resistant. Assessment And Plan: A 47-year-old female with: 1.Atypical chest pain, likely pleuritic pain. The patient does have atelectasis and pulmonary edema . Repeat chest x-ray. Seen today. Personally reviewed. Shows improvement. Acute coronary syndrom e ruled out. Appreciate Dr. Griffiths's input. 2.Pleural effusion, improving. 3.Volume overload, likely secondary to acute diastolic heart failure. EF is normal. We will decrea se Lasix due to low blood pressure. Monitor I's and O's. Fluid restriction. 4.Multiple chronic wounds. Micro showing Xanthomonas, Klebsiella, yeast. Continue IV antibiotics. ID consultation. 5.History of deep venous thrombosis and pulmonary embolism, on Coumadin. INR back down to 1.47. Co ntinue bridging with Lovenox. 6.Acute respiratory distress, hypoxia. The patient on 3 L on nasal cannula. Room air sats are 88%. We will continue to wean off as tolerated. 7.Hypothyroidism. Continue levothyroxine. 8.Morbid obesity. 9.Generalized anxiety disorder. 10.Severe protein-calorie malnutrition. Albumin is 2.3. 11.Hypokalemia. We will replace. 12.Normocytic normochromic anemia. H and H stable. SA/MODL Voice ID: [id number] Report ID: [id number]
[2018-03-25] MEDS: WARFARIN SODIUM 5 MG TAB PO SCH (18:45)
[2018-03-25] MEDS: ALPRAZOLAM 0.25 MG TABLET PO PRN (18:53)
[2018-03-25] MEDS: ATORVASTATIN 40 MG TAB PO SCH (21:11)
[2018-03-25] MEDS: ESCITALOPRAM 20 MG TAB PO SCH (21:12)
[2018-03-25] MEDS: ZOLPIDEM TARTRATE 5 MG TABLET PO PRN (21:16)
[2018-03-26] MEDS: PIPER/TAZO/NS 3.375gm 3.375 GM/100 ML BAG IVPB SCH ×2 (00:05→09:47)
[2018-03-26] MEDS: LEVOTHYROXINE SOD 0.025 MG TAB PO SCH (04:41)
[2018-03-26] MEDS: HYDROCODONE/APAP 5/325 MG TAB PO PRN ×5 (04:41→21:26)
[2018-03-26 05:07] LABS: Protime INR 1.4
[2018-03-26 05:08] LABS: Absolute Lymphocytes (CBC) 2.3 K/uL (0.7-4.9); Absolute Monocytes 1.6 K/uL (0.1-1.3); Absolute Neutrophil 2.8 K/uL (1.8-8.0); Basophils % 0.9 % (0-1.3); Eosinophils % 8.2 % (0-4.4); Hematocrit 31.7 % (36.0-45.0); Lymphocytes % 31.2 % (15.3-44.8); MCH 29.9 pg (27.0-35.0); MCV 89.7 fL (80-100); MPV 7.1 fL (7.6-11.3); Monocytes % 22.2 % (3.3-12.3); RBC Red Blood Cell Count 3.54 M/uL (3.86-4.86)
[2018-03-26 07:08] LABS: Bilirubin Total 0.1 mg/dL (0.2-1.0); Protein, Total 6.9 g/dL (6.4-8.2)
[2018-03-26] MEDS: COLLAGENASE 30 GM OINTMENT TOP SCH (09:00)
[2018-03-26] MEDS: FUROSEMIDE 20 MG/ 2ML VIAL IV SCH (09:00)
[2018-03-26] MEDS: LISINOPRIL 10 MG TAB PO SCH (09:00)
[2018-03-26] MEDS: METOPROLOL TAR 25 MG TAB PO SCH ×2 (09:00→21:00)
[2018-03-26] MEDS: JUVEN PACKET PO SCH ×2 (09:00→21:30)
[2018-03-26] MEDS: BACITRACIN OINTMENT 15 GM TUBE TOP SCH (09:00)
[2018-03-26] MEDS: ASPIRIN EC 81 MG TAB PO SCH (09:45)
[2018-03-26] MEDS: AMIODARONE HCL 200 MG TAB PO SCH (09:45)
[2018-03-26] MEDS: SEVELAMER CARBONATE 800 MG TABLET PO SCH ×3 (09:45→17:28)
[2018-03-26] MEDS: POTASSIUM CL SA 10 MEQ TAB PO SCH (09:45)
[2018-03-26] MEDS: ENOXAPARIN 100 MG/ML SYR SQ SCH ×2 (09:46→21:27)
[2018-03-26] MEDS: PANTOPRAZOLE 40MG TABLET PO SCH (09:47)
[2018-03-26] MEDS: ARFORMOTEROL TARTRATE 15 MCG/2 ML VIAL.NEB NEB SCH ×2 (10:23→19:09)
--- NOTE | 2018-03-26 10:41 | P.CNS ---
Date of Consult: 03/26/18 Reason for Consult: Chest pain Chief Complaint: Chest pain History of Present Illness: Patient is 47 years of age multiple medical problems was admitted from the emergency room with atypical chest pain described as per chest loss for a long time intermittent dull aching denies any fever chills cough sputum or hemoptysis Patient was in the hospital for a month and a half a diagnosis of infection on the left side history of DVT pulmonary embolism multiple wound infections cardiac workup was negative at this visit Patient does have a history of COPD former smoker a pack a day quit smoking 4 months ago he complains of difficulty inhaling exhaling tightness pressure she used to take Symbicort probably has underlying COPD Allergies caffeine Allergy (Verified 01/25/18 08:32) unkown hydrocodone [Hydrocodone] Allergy (Verified 12/27/17 18:16) Hives/Rash Hydrocodone-Acetaminophen Allergy (Uncoded 12/27/17 18:16) Anaphylaxis Home Medications: Amiodarone HCl [Cordarone Tab] 200 mg PO DAILY 03/22/18 Amox/Clavulanate [Augmentin 500-125 mg Tab] 500 mg PO BID 03/22/18 Collagenase [Santyl Ointment] 30 appl TOP DAILY 03/22/18 Escitalopram Oxalate [Lexapro] 30 mg PO BEDTIME 03/22/18 Furosemide [Lasix] 40 mg PO DAILY 03/22/18 Philipp [Philipp*] 1 each PO BID 03/22/18 Levofloxacin [Levaquin] 500 mg PO DAILY 03/22/18 Pantoprazole [Protonix Tab] 40 mg PO DAILY 03/22/18 Potassium Chloride [Micro-K] 20 meq PO DAILY 03/22/18 Sevelamer Carbonate [Renvela] 800 mg PO TIDWM 03/22/18 Warfarin Sodium [Coumadin] 5 mg PO DAILY 5 PM 03/22/18 - Past Medical/Surgical History Diabetic: No -: anxiety/depression -: afib -: bipolar -: neuropathy -: thyroid dx -: anemia -: csection -: tonsilectomy -: I&D -: back sx -: "lung scraping" via pt. -: ovarian cyst - Social History Smoking Status: Unknown if ever smoked Alcohol use: No CD- Drugs: No Caffeine use: No Place of Residence: Home Review of Systems General: Weakness Cardiovascular: Chest Pain Physical Examination Temp Pulse Resp BP Pulse Ox 97.5 F 60 18 112/62 96 03/26/18 04:00 03/26/18 04:00 03/26/18 04:00 03/26/18 04:00 03/26/18 04:00 General: Alert, Oriented x3 HEENT: Atraumatic Neck: Supple Respiratory: Clear to auscultation bilaterally Cardiovascular: No edema, Normal S1 S2 - Problems (1) COPD (chronic obstructive pulmonary disease) Current Visit: Yes Status: Acute Plan: Patient is 47 years of age former smoker admitted with two-month history of atypical chest pain patient used to take Symbicort before negative cardiac workup I suggest she vis started on bronchodilators and resume Symbicort at home in addition patient has multiple wound infections particularly in the left groin his now isolating Xanthomonas need to speak to infectious disease patient is on an short as DVT and PE currently on warfarin continue with Lovenox Dc Zosyn and IV Lasix
[2018-03-26] MEDS ORDERED: WARFARIN SODIUM 7.5 MG TAB PO SCH (17:00)
[2018-03-26] MEDS: CEFTRIAXONE/SWI 1gm 1 GM/10 ML SYR IV SCH (17:28)
[2018-03-26] MEDS: ALPRAZOLAM 0.25 MG TABLET PO PRN (19:31)
--- NOTE | 2018-03-26 20:21 | PN ---
Date of Progress Note: 03/26/2018 Subjective: The patient seen and examined. Chart reviewed and case discussed with RN and Dr. Tony daily and Dr. Ware. The patient is still having some low blood pressure, however, improved. Currentl y asymptomatic. Review of Systems: Negative except as above. Medications: List reviewed. Physical Examination: Vital Signs: Temperature 97.9, heart rate 60, blood pressure 101/69, respirations 16, O2 98% on 2 L via nasal cannula. General: Awake, alert, and oriented x3, not in any acute distress, obese female. CV: S1 and S2. Regular rate and rhythm. Peripheral pulses present. Respiratory: Moving air well bilaterally. Some diminished breath sounds, worse on the right. No wh eezing. Gastrointestinal: Abdomen is soft, nontender, nondistended. Positive bowel sounds. Extremities: No clubbing, cyanosis, or edema. Neurologic: Nonfocal. Skin: The patient does have multiple wounds and left groin wounds with some drainage. Left first to e dry gangrene. Right groin and arm wounds appearing well-healed. Laboratory Data: Sodium 140, potassium 4, chloride 102, CO2 35, BUN 19, creatinine 0.9, glucose 117, calcium 8.8, albumin 2. WBC 7.4, H and H 10.6 and 31.7, platelets 365, neutrophils 37%, 22% monocyt es. Blood cultures, no growth. Final wound cultures from the left groin growing Xanthomonas and Kl ebsiella. Assessment And Plan: A 47-year-old female with: 1.Atypical pain, likely pleuritic chest pain, secondary to atelectasis, pulmonary edema, improving. Acute coronary syndrome ruled out. 2.Pleural effusion. Continue diuresis. 3.Volume overload, likely secondary to acute diastolic heart failure. The patient has normal ejecti on fraction. Lasix on hold due to low blood pressure. Continue to monitor I's and O's. Fluid restr iction. 4.Multiple chronic wounds. Microbiology growing Xanthomonas, Klebsiella, and yeast. Continue antibi otics. ID consultation for recommendations. 5.History of deep venous thrombosis and pulmonary embolism, on Coumadin. INR is subtherapeutic. Co ntinue Lovenox 1 mg/kg q.12. adjust Coumadin dose. 6.Acute respiratory distress with hypoxia, on 3 L nasal cannula, likely due to chronic obstructive p ulmonary disease. Dr. Hanks has been consulted. The patient started on bronchodilators. We will continue to wean off as tolerated of oxygen. 7.Hypothyroidism, on levothyroxine. 8.Morbid obesity. 9.Generalized anxiety disorder. 10.Severe protein-calorie malnutrition. Albumin is 2. 11.Hypokalemia. Replace and monitor. 12.Normocytic normochromic anemia. H and H are stable. SA/MODL Voice ID: [id number] Report ID: [id number]
[2018-03-26] MEDS: ZOLPIDEM TARTRATE 5 MG TABLET PO PRN (21:25)
[2018-03-26] MEDS: ESCITALOPRAM 20 MG TAB PO SCH (21:25)
[2018-03-26] MEDS: ATORVASTATIN 40 MG TAB PO SCH (21:26)
[2018-03-26] MEDS: DULERA 200/5 (MOMETASONE/FORMOTEROL) INHALER IH SCH (21:29)
[2018-03-27] MEDS: HYDROCODONE/APAP 5/325 MG TAB PO PRN ×4 (01:33→21:29)
[2018-03-27] MEDS: LEVOTHYROXINE SOD 0.025 MG TAB PO SCH (05:07)
[2018-03-27 05:22] LABS: Absolute Lymphocytes (CBC) 3.1 K/uL (0.7-4.9); Absolute Monocytes 1.5 K/uL (0.1-1.3); Absolute Neutrophil 2.6 K/uL (1.8-8.0); Eosinophils % 7.1 % (0-4.4); Lymphocytes % 39.1 % (15.3-44.8); MCH 29.6 pg (27.0-35.0); MCV 88.7 fL (80-100); MPV 7.1 fL (7.6-11.3)
[2018-03-27 05:29] LABS: Monocytes % 19.4 % (3.3-12.3)
[2018-03-27 05:31] LABS: Protime INR 1.52
[2018-03-27 05:42] LABS: ALT/SGPT 8 U/L (12-78); AST/SGOT 13 U/L (15-37); Albumin 2.1 g/dL (3.4-5.0); Alkaline Phosphatase 57 U/L (45-117); BUN Blood Urea Nitrogen 21 mg/dL (7-18); Bicarbonate 31 mmol/L (21-32); Glucose Level 99 mg/dL (74-106); Potassium 4.1 mmol/L (3.5-5.1); Protein, Total 6.8 g/dL (6.4-8.2); Sodium Level 140 mmol/L (136-145)
[2018-03-27 05:45] LABS: Bilirubin Total < 0.1 mg/dL (0.2-1.0)
[2018-03-27] MEDS: SEVELAMER CARBONATE 800 MG TABLET PO SCH ×3 (08:53→17:07)
[2018-03-27] MEDS: METOPROLOL TAR 25 MG TAB PO SCH ×2 (08:54→21:31)
[2018-03-27] MEDS: PANTOPRAZOLE 40MG TABLET PO SCH (08:54)
[2018-03-27] MEDS: ASPIRIN EC 81 MG TAB PO SCH (08:54)
[2018-03-27] MEDS: POTASSIUM CL SA 10 MEQ TAB PO SCH (08:55)
[2018-03-27] MEDS: LISINOPRIL 10 MG TAB PO SCH (08:55)
[2018-03-27] MEDS: AMIODARONE HCL 200 MG TAB PO SCH (08:56)
[2018-03-27] MEDS: DULERA 200/5 (MOMETASONE/FORMOTEROL) INHALER IH SCH ×2 (08:56→21:00)
[2018-03-27] MEDS: ENOXAPARIN 100 MG/ML SYR SQ SCH ×2 (08:56→21:32)
[2018-03-27] MEDS: BACITRACIN OINTMENT 15 GM TUBE TOP SCH (09:00)
[2018-03-27] MEDS: COLLAGENASE 30 GM OINTMENT TOP SCH (09:00)
[2018-03-27] MEDS: JUVEN PACKET PO SCH ×2 (09:04→21:00)
[2018-03-27] MEDS ORDERED: WARFARIN SODIUM 5 MG TAB PO SCH (17:00)
--- NOTE | 2018-03-27 17:03 | PN ---
Date of Progress Note: 03/27/2018 Subjective: The patient is seen and examined. Chart reviewed and case discussed with RN and Case Brea wen. The patient feels significantly better, now off oxygen. Improved pain. Review of Systems: Negative except as above. Medications: List reviewed. Physical Examination: Vital Signs: Temperature 98.1, heart rate 66, blood pressure 127/82, respirations 16, O2 97% on room air. General: Awake, alert, oriented x3. No acute distress. Obese female. BMI 39. CV: S1, S2. No murmurs. Regular rate and rhythm. Peripheral pulses present. Respiratory: Moving air well bilaterally, improved from previous. No wheezing. Gastrointestinal: Abdomen is soft, nontender, nondistended. Positive bowel sounds. Extremities: No clubbing, cyanosis, or edema. Neurologic: Nonfocal. Skin: The patient has wounds on bilateral groin and dry gangrenous wound on the left first toe. Laboratory Data: Sodium 140, potassium 4.1, chloride 106, CO2 31, BUN 21, creatinine 0.8, glucose 99 , calcium 9.2, AST 13, ALT 8, albumin 2.1. WBC 7.9, H and H 10.7, 32, platelets 402. Microbiology, left groin wound shows xanthomonas. Assessment And Plan: A 47-year-old female with: 1.Atypical chest pain, pleuritic secondary to atelectasis, pulmonary edema. Acute coronary syndrome ruled out. 2.Pleural effusion. Continue diuresis. 3.Acute diastolic heart failure. We will continue to monitor I's and O's and fluid restriction. 4.Multiple chronic wounds. Microbiology growing xanthomonas, Klebsiella and yeast. Continue antibi otics. Await ID recommendations. 5.Chronic obstructive pulmonary disease, chronic bronchitis, improved with bronchodilator. 6.History of deep venous thrombosis and pulmonary embolism, on Coumadin. INR still subtherapeutic. We will continue Lovenox 1 mg/kg q.12 hours and adjust Coumadin dose to target INR between 2 and 3. 7.Acute respiratory distress with hypoxia, now weaned off oxygen secondary to chronic obstructive pu lmonary disease and congestive heart failure. 8.Hypothyroidism. Continue levothyroxine. 9.Morbid obesity. 10.Generalized anxiety disorder. 11.Severe protein-calorie malnutrition. Albumin 2.1. 12.Hypokalemia, replaced. 13.Normocytic normochromic anemia. H and H stable. Continue to monitor closely. 14.Gastrointestinal and deep venous thrombosis prophylaxis addressed. /MODL Voice ID: [id number] Report ID: [id number]
[2018-03-27] MEDS: ALPRAZOLAM 0.25 MG TABLET PO PRN (17:09)
[2018-03-27] MEDS: CEFTRIAXONE/SWI 1gm 1 GM/10 ML SYR IV SCH (17:10)
--- NOTE | 2018-03-27 19:57 | CON ---
History Of Present Illness: This is a 47-year-old female I was consulted for left groin wound. The [facility] by [facility] Care team. The patient came into the emergen cy room with chest discomfort. She has significant history of DVT, pulmonary embolism. The patient also has multiple wounds, which have been healing on different stages at this time. Denies any heada herb, nausea, vomiting, chest pain, abdominal pain, constipation, or diarrhea. No fever. Past Medical History: Includes morbid obesity, DVT and pulmonary embolism, on Coumadin. Multiple wo unds including bilateral groin wounds, right arm wound, dry gangrene of the left first toe, anxiety. Past Surgical History: , I and D of the wounds, tonsillectomies. Social History: Alcohol positive, tobacco negative. Family History: Noncontributory. Medication: The patient currently being treated with IV Rocephin. See MARS for other medication. Allergies: CAFFEINE, HYDROCODONE. Review of Systems: A 10-point review was performed. Physical Examination: General: This is a 47-year-old female, lying in bed, not in any acute cardiopulmonary distress. Vital Signs: Temperature 97.4, pulse 69, respiration 18, blood pressure 130/76. HEENT: Unremarkable. Neck: Supple. Lungs: Basal crackles. Heart: S1, S2. Regular. Abdomen: Soft, nontender. Bowel sounds positive. Extremity: No edema. Left groin wound noted with slough. Laboratory Data: Shows WBC 7.9, hemoglobin 10.7, platelets 402. Chemistry shows sodium 140, potassi um 4.1, chloride 106, bicarb 31, BUN 21, creatinine 0.8, glucose 77. Assessment And Plan: Left groin wound, apply Medihoney Tuesday, Tuesday, Tuesday. Continue antibiot ic, can be switched to Levaquin and doxycycline for 10 days. Continue wound care and follow up with wound care team in the [facility]. We will follow the patient as needed. NF/MODL Voice ID: [id number] Report ID: [id number]
[2018-03-27] MEDS: ESCITALOPRAM 20 MG TAB PO SCH (21:30)
[2018-03-27] MEDS: ATORVASTATIN 40 MG TAB PO SCH (21:31)
[2018-03-27] MEDS: ZOLPIDEM TARTRATE 5 MG TABLET PO PRN (22:56)
[2018-03-28] MEDS: HYDROCODONE/APAP 5/325 MG TAB PO PRN ×3 (03:19→15:03)
[2018-03-28] MEDS: LEVOTHYROXINE SOD 0.025 MG TAB PO SCH (05:15)
[2018-03-28 06:06] LABS: ALT/SGPT 10 U/L (12-78); AST/SGOT 25 U/L (15-37); Albumin 2.4 g/dL (3.4-5.0); Alkaline Phosphatase 61 U/L (45-117); BUN Blood Urea Nitrogen 20 mg/dL (7-18); Bicarbonate 26 mmol/L (21-32); Bilirubin Total 0.2 mg/dL (0.2-1.0); Glucose Level 80 mg/dL (74-106); Potassium 4.4 mmol/L (3.5-5.1); Protein, Total 7.4 g/dL (6.4-8.2); Sodium Level 141 mmol/L (136-145)
[2018-03-28 06:14] LABS: Absolute Lymphocytes (CBC) 3.9 K/uL (0.7-4.9); Absolute Monocytes 1.4 K/uL (0.1-1.3); Absolute Neutrophil 3.6 K/uL (1.8-8.0); Basophils % 0.9 % (0-1.3); Eosinophils % 5.7 % (0-4.4); Hematocrit 34.5 % (36.0-45.0); Lymphocytes % 40.9 % (15.3-44.8); MCH 29.9 pg (27.0-35.0); MCV 88.8 fL (80-100); MPV 7.6 fL (7.6-11.3); Monocytes % 14.4 % (3.3-12.3); RBC Red Blood Cell Count 3.89 M/uL (3.86-4.86)
[2018-03-28 06:17] LABS: Protime INR 1.69
[2018-03-28 06:32] VITALS: BMI 36.6
[2018-03-28 08:58] LABS: Platelet Estimate INCR
[2018-03-28 08:59] LABS: Anisocytosis 1+; Blood Morphology Comment NOTED (NOT SEEN)
[2018-03-28] MEDS: COLLAGENASE 30 GM OINTMENT TOP SCH (09:00)
[2018-03-28] MEDS: DULERA 200/5 (MOMETASONE/FORMOTEROL) INHALER IH SCH (09:08)
[2018-03-28] MEDS: POTASSIUM CL SA 10 MEQ TAB PO SCH (09:09)
[2018-03-28] MEDS: ASPIRIN EC 81 MG TAB PO SCH (09:09)
[2018-03-28] MEDS: SEVELAMER CARBONATE 800 MG TABLET PO SCH ×2 (09:10→12:01)
[2018-03-28] MEDS: AMIODARONE HCL 200 MG TAB PO SCH (09:10)
[2018-03-28] MEDS: METOPROLOL TAR 25 MG TAB PO SCH (09:10)
[2018-03-28] MEDS: PANTOPRAZOLE 40MG TABLET PO SCH (09:11)
[2018-03-28] MEDS: LISINOPRIL 10 MG TAB PO SCH (09:11)
[2018-03-28] MEDS: ENOXAPARIN 100 MG/ML SYR SQ SCH (09:11)
[2018-03-28] MEDS: BACITRACIN OINTMENT 15 GM TUBE TOP SCH (09:14)
[2018-03-28] MEDS: JUVEN PACKET PO SCH (09:18)
[2018-03-28 09:38] VITALS: O2SAT 97
[2018-03-28] MEDS: ALPRAZOLAM 0.25 MG TABLET PO PRN (12:00)
[2018-03-28 12:09] LABS: Protime INR 1.77
--- NOTE | 2018-03-28 13:21 | P.PN ---
Subjective Date of Service: 03/28/18 Primary Care Provider: Dr. Blanco Chief Complaint: Chest pain Subjective: Improving Physical Examination - Vital Signs Temperature: 97.3 F Blood Pressure: 106/68 Pulse: 60 Respirations: 18 Pulse Ox (%): 96 - Physical Exam General: Alert, In no apparent distress, Oriented x3, Cooperative HEENT: Atraumatic Neck: Supple Respiratory: Clear to auscultation bilaterally, Normal air movement Cardiovascular: Normal pulses, Regular rate/rhythm Gastrointestinal: Normal bowel sounds, Soft and benign, Non-distended, No tenderness, No masses, No rebound, No guarding Musculoskeletal: No erythema, No tenderness, No warmth Integumentary: No tenderness/swelling, No erythema, No warmth, No cyanosis Neurological: Other (Dry gangrenous when to the left 1st toe. Wounds to the groins bilaterally) - Studies Medications List Reviewed: Yes Assessment & Plan Discharge Plan: Home Plan to discharge in: 24 Hours Physician Review Additional Text: Impression: Atypical chest pain, pleuritic in nature secondary to atelectasis and pulmonary edema Pleural effusion Acute on chronic diastolic congestive heart failure Multiple chronic wounds, microbiology growing Xanthomonas, Klebsiella and yeast COPD History of DVT and pulmonary embolism on Coumadin. Acute on chronic respiratory failure with hypoxia secondary to COPD exacerbation and CHF exacerbation. Hypothyroidism Morbid obesity Generalized anxiety disorder Severe protein calorie malnutrition Hypokalemia Normocytic, normochromic anemia Plan: Patient is doing well this time. Awaiting for her INR to be near 2.0. Patient being bridged with Lovenox. Patient on Coumadin 10 mg daily. Will recheck INR later today. If near 2.0 then will discharge home with Coumadin. This will need to be monitored closely by her PCP. Continue current treatment for CHF and COPD. Continue with current wound care and topical antibiotic therapy. Continue with COPD treatment. Continue with hypothyroidism medication. Will continue with her anxiety medication. Anticipate discharge in the next day. Time Spent Managing Pts Care (In Minutes): 55
[2018-03-28 15:13] LABS: Protime INR 1.89
--- NOTE | 2018-03-28 16:08 | P.DS ---
Admission Date: 03/21/18 Discharge Date: 03/28/18 Primary Care Provider: Dr. Blanco Disposition: ROUTINE DISCHARGE Discharge Condition: GOOD Reason for Admission: Chest pain Consultations: Pulmonary-Dr. Hanks ID-Dr. Ware Procedures: CT scan: COMPARISON: December 2017 TECHNIQUE: Dynamically enhanced axial 3 mm thick images of the chest were obtained during administration of <100> mL Isovue 370 IV contrast. Coronal and oblique reconstruction images were generated and reviewed. Exam utilizes a protocol for optimal evaluation of pulmonary arterial tree. Maximum intensity projections 3D imaging was utilized All CT scans are performed using dose optimization technique as appropriate and may include automated exposure control or mA/KV adjustment according to patient size. FINDINGS: Respiratory motion artifact limits evaluation of some of the peripheral pulmonary arteries. A pulmonary embolus is not seen. A thoracic aortic aneurysm is not noted. Mild to moderate mediastinal lymphadenopathy is present A small to moderate pericardial effusion is present. A 4 centimeter left lower lobe opacity is present. A small loculated left pleural effusion is seen. Tiny right pleural effusion is present. Mild to moderate bilateral patchy lung opacities are seen. IMPRESSION: Negative for a pulmonary embolism. 4 centimeter left lower lobe opacity probably represents rounded atelectasis. This should be followed until it is clear to help exclude a post obstructive process/underlying mass Small to moderate pericardial effusion Mild to moderate bilateral patchy lung opacities could either represent pulmonary edema or pneumonia Medical Problem List: Atypical chest pain likely pleuritic in nature with noted atelectasis and pulmonary edema Pleural effusion Acute on chronic diastolic congestive heart failure COPD Atrial fibrillation on chronic anti coagulation therapy History DVT and pulmonary embolism currently on Coumadin Acute on chronic respiratory failure with hypoxia secondary to COPD and CHF Hypothyroidism Generalized anxiety disorder Severe protein calorie malnutrition Anemia, normal chromic Morbid obesity Hypertension Hyperlipidemia GERD Brief History of Present Illness: 47-year-old female presented urgency room with chest pain. Patient with multiple medical problems including COPD, CHF, atrial fibrillation on chronic anti coalition therapy-Coumadin, hypothyroidism, general anxiety disorder, malnutrition and chronic wounds. The patient was admitted for treatment. Hospital Course: Patient presented with Atypical chest pain likely pleuritic in nature with noted atelectasis and pulmonary edema. Patient had stress test: No stress- induced ischemia was identified. Patient was evaluated by pulmonology. Patient was found to have atelectasis and pulmonary edema. Shortness of breath was noted with acute on chronic respiratory failure with hypoxia secondary to COPD and CHF. Patient was treated for both. At discharge patient will continue with COPD medication including Dulera 2 puffs twice daily. Patient will continue with albuterol 2 puffs 3 times a day as needed for shortness of breath. Recommendation is for the patient follow up with pulmonology as an outpatient to further address. For her CHF, diastolic dysfunction, patient will continue with a 1500 cc per day fluid restriction and low-salt diet. Patient has underlying atrial fibrillation on chronic anti coagulation therapy. Patient currently on Coumadin. At discharge she will continue with Coumadin 5 mg 1 pill once daily. Recommendation is to continue with Coumadin to maintain INR between 2 and 3. Patient will need a follow up with her PCP on for recheck on INR. Patient may qualify for assistance to use Eliquis as an outpatient. Patient will need complete forms for assistance. If approved patient can transition off of Coumadin to Eliquis with the help of her PCP. The patient will also continue with amiodarone 200 mg daily. Patient has history of DVT and pulmonary embolism. She is currently on Coumadin. She will need to continue with Coumadin 5 mg daily. Recommendation is to recheck INR on . Recommendation is to maintain INR between 2-3. Further adjustment can be done by her PCP. Patient with hypertension. Patient will continue with lisinopril 10 mg daily and metoprolol 25 mg 1 pill twice daily. Recommendation is to maintain blood pressures less 150/80. Further adjustment can be done by her PCP. Patient has hypothyroidism. Patient will continue with Levoxyl 25 mcg daily. Patient with anxiety disorder. Patient will continue with Lexapro 30 mg daily. Patient has hyperlipidemia. Patient will continue with Lipitor 40 mg 1 pill once daily. Patient has GERD. Patient continue with Protonix 40 mg 1 pill once daily. Patient has chronic wounds. Patient will continue with bacitracin ointment once daily to wounds. Patient will continue with current wound care. Patient may follow up with infectious disease at the wound Care Center. Vital Signs/Physical Exam: Temp Pulse Resp BP Pulse Ox 97.3 F 60 18 106/68 96 03/28/18 13:21 03/28/18 13:21 03/28/18 13:21 03/28/18 13:21 03/28/18 13:21 General: Alert, In no apparent distress, Oriented x3, Cooperative HEENT: Atraumatic Neck: Supple Respiratory: Clear to auscultation bilaterally, Normal air movement Cardiovascular: Normal pulses, Regular rate/rhythm Gastrointestinal: Normal bowel sounds, Soft and benign, Non-distended, No tenderness, No masses, No rebound, No guarding Musculoskeletal: No erythema, No tenderness, No warmth Integumentary: No tenderness/swelling, No erythema, No warmth, No cyanosis Neurological: Normal speech, Normal strength at 5/5 x4 extr, Normal tone, Normal affect Lymphatics: No axilla or inguinal lymphadenopathy Laboratory Data at Discharge: WBC 9.5 K/uL (4.3-10.9) D 03/28/18 04:27 Hgb 11.6 g/dL (12.0-15.0) L 03/28/18 04:27 Hct 34.5 % (36.0-45.0) L 03/28/18 04:27 Plt Count 430 K/uL (152-406) H 03/28/18 04:27 PT 22.4 SECONDS (9.5-12.5) H 03/28/18 15:00 INR 1.89 03/28/18 15:00 APTT 30.8 SECONDS (24.3-36.9) 03/21/18 12:50 Sodium 141 mmol/L (136-145) 03/28/18 04:27 Potassium 4.4 mmol/L (3.5-5.1) 03/28/18 04:27 BUN 20 mg/dL (7-18) H 03/28/18 04:27 Creatinine 0.70 mg/dL (0.55-1.3) 03/28/18 04:27 Glucose 80 mg/dL (74-106) 03/28/18 04:27 Magnesium 2.3 mg/dL (1.8-2.4) 03/21/18 12:50 Total Bilirubin 0.2 mg/dL (0.2-1.0) 03/28/18 04:27 AST 25 U/L (15-37) 03/28/18 04:27 ALT 10 U/L (12-78) L 03/28/18 04:27 Alkaline Phosphatase 61 U/L (45-117) 03/28/18 04:27 Troponin I < 0.02 ng/mL (0.0-0.045) 03/22/18 04:27 Triglycerides 244 mg/dL (<150) H 03/22/18 04:27 Cholesterol 148 mg/dL (<200) 03/22/18 04:27 HDL Cholesterol 25 mg/dL (40-60) L 03/22/18 04:27 Cholesterol/HDL Ratio 5.92 03/22/18 04:27 Lipase 33 U/L (73-393) L 03/21/18 12:50 Home Medications: Amiodarone HCl [Cordarone Tab] 200 mg PO DAILY 03/22/18 Amox/Clavulanate [Augmentin 500-125 mg Tab] 500 mg PO BID 03/22/18 Collagenase [Santyl Ointment] 30 appl TOP DAILY 03/22/18 Escitalopram Oxalate [Lexapro] 30 mg PO BEDTIME 03/22/18 Furosemide [Lasix] 40 mg PO DAILY 03/22/18 Philipp [Philipp*] 1 each PO BID 03/22/18 Levofloxacin [Levaquin] 500 mg PO DAILY 03/22/18 Pantoprazole [Protonix Tab] 40 mg PO DAILY 03/22/18 Potassium Chloride [Micro-K] 20 meq PO DAILY 03/22/18 Sevelamer Carbonate [Renvela] 800 mg PO TIDWM 03/22/18 Warfarin Sodium [Coumadin] 5 mg PO DAILY 5 PM 03/22/18 Patient Discharge Instructions: 1. Patient will need to follow up with PCP on . 2. Patient presented with Atypical chest pain likely pleuritic in nature with noted atelectasis and pulmonary edema. Patient had stress test: No stress-induced ischemia was identified. Patient was evaluated by pulmonology. Patient was found to have atelectasis and pulmonary edema. Shortness of breath was noted with acute on chronic respiratory failure with hypoxia secondary to COPD and CHF. Patient was treated for both. At discharge patient will continue with COPD medication including Dulera 2 puffs twice daily. Patient will continue with albuterol 2 puffs 3 times a day as needed for shortness of breath. Recommendation is for the patient follow up with pulmonology as an outpatient to further address. For her CHF, diastolic dysfunction, patient will continue with a 1500 cc per day fluid restriction and low-salt diet. 3. Patient has underlying atrial fibrillation on chronic anti coagulation therapy. Patient currently on Coumadin. At discharge she will continue with Coumadin 5 mg 1 pill once daily. Recommendation is to continue with Coumadin to maintain INR between 2 and 3. Patient will need a follow up with her PCP on for recheck on INR. Patient may qualify for assistance to use Eliquis as an outpatient. Patient will need complete forms for assistance. If approved patient can transition off of Coumadin to Eliquis with the help of her PCP. The patient will also continue with amiodarone 200 mg daily. 4. Patient has history of DVT and pulmonary embolism. She is currently on Coumadin. She will need to continue with Coumadin 5 mg daily. Recommendation is to recheck INR on . Recommendation is to maintain INR between 2-3. Further adjustment can be done by her PCP. 5. Patient with hypertension. Patient will continue with lisinopril 10 mg daily and metoprolol 25 mg 1 pill twice daily. Recommendation is to maintain blood pressures less 150/80. Further adjustment can be done by her PCP. 6. Patient has hypothyroidism. Patient will continue with Levoxyl 25 mcg daily. 7. Patient with anxiety disorder. Patient will continue with Lexapro 30 mg daily. 8. Patient has hyperlipidemia. Patient will continue with Lipitor 40 mg 1 pill once daily. 9. Patient has GERD. Patient continue with Protonix 40 mg 1 pill once daily. 10. Patient has chronic wounds. Patient will continue with bacitracin ointment once daily to wounds. Patient will continue with current wound care. Patient may follow up with infectious disease at the wound Care Center. Diet: AHA Activity: Ad jazlyn Time spent managing pt's care (in minutes): 55
[2018-03-28 17:37] VITALS: BP 113/77; TEMP 98
== END 2018-03-28 17:06 | disposition home or self-care (01) | DRG 189 ==
LOC: ER 12:18 → ERHOLD 14:56 → 2ND 18:34
PROVIDERS: ADMIT Family Medicine; ATTEND Family Medicine
DX: J96.21 Acute and chronic respiratory failure with hypoxia (principal); E43 Unspecified severe protein-calorie malnutrition; I50.33 Acute on chronic diastolic (congestive) heart failure; J98.11 Atelectasis; J44.1 Chronic obstructive pulmonary disease with (acute) exacerbation; R07.89 Other chest pain; D64.9 Anemia, unspecified; E87.6 Hypokalemia; J44.9 Chronic obstructive pulmonary disease, unspecified; S31.104A Unspecified open wound of abdominal wall, left lower quadrant without penetration into peritoneal cavity, initial encounter; I48.91 Unspecified atrial fibrillation; E66.01 Morbid (severe) obesity due to excess calories; E03.9 Hypothyroidism, unspecified; F41.1 Generalized anxiety disorder; F31.9 Bipolar disorder, unspecified; Z86.718 Personal history of other venous thrombosis and embolism; Z86.711 Personal history of pulmonary embolism; Z68.36 Body mass index [BMI] 36.0-36.9, adult; Z87.891 Personal history of nicotine dependence
CPT/HCPCS: 36415; 71045; 71275; 78452; 80048; 80053; 80061; 80076; 80164; 81003; 81025; 82550; 82553; 83690; 83735; 83880; 84439; 84443; 84484; 85025; 85610; 85730; 87040; 87070; 87077; 87184; 87186; 87205; 93005; 93017; 93306; 93970; 94640; 94760; 96361; 96365; 96366; 96372; 96375; 97163; 99285; A9500; J0696; J1650; J2405; J2543; J2785; J3590; J7030; J7605; J7606; Q9967